=== PATIENT | male | born 1950 | race Caucasian/White ===

== ENCOUNTER 2017-11-30 21:15 | Emergency (ER) | payer MEDICARE, SELFPAY ==
[2017-11-30 21:16] VITALS: BP 156/91; PULSE 75; RESP 15; TEMP 36.9; O2SAT 95; BMI 40.1
--- NOTE | 2017-11-30 21:59 | CT_ITS ---
STUDY: CT BRAIN WITHOUT CONTRAST REASON FOR EXAM: Male, 66 years old. Confusion. Headache. RADIATION DOSAGE (If Supplied By Facility): CTDIvol = ( 44.99 ) mGy, DLP = ( 829.85 ) mGycm TECHNIQUE: Transaxial CT imaging of the brain was performed without administration of intravenous contrast material. Individualized dose optimization techniques were used for this CT. COMPARISON: None. FINDINGS: Normal soft tissue structures. Normal calvarium. Normal size ventricles and extra-axial spaces for the patient's age. Normal white matter tracts of the cerebral hemispheres. Normal basal ganglia and thalami. Normal brainstem. Normal cerebellum. There is no intracranial hemorrhage. There are no findings of an acute ischemic infarction. Normal visualized paranasal sinuses. CT/Brain/Head without Contrast IMPRESSION: Normal unenhanced CT scan of the brain. Electronically Signed: Russ Tapia MD at 23:06 EST , Service support ,
[2017-11-30 22:23] LABS: Absolute Lymphocyte Count 1.69 X10^3/ul (0.83-4.51); Absolute Neutrophil Count 3.8 X10^3/uL (2.0-7.7); Basophil# 0.02 X10^3/uL; Basophil% 0.3 % (0-1); Eosinophil# 0.28 X10^3/uL; Eosinophils% 4.3 % (0-5); Hematocrit 38.7 % (40-54); Hemoglobin 12.8 g/dl (13.0-16.5); Lymphocyte # 1.69 X10^3/ul (4.0); Mean Corp Hgb Conc 33.1 g/gl (32-36); Mean Corpuscular Hgb 30.5 pg (27.0-32.0); Mean Corpuscular Volume 92.4 fL (80-94); Mean Platelet Vol. 8.2 fl (6.2-12.0); Monocyte# 0.66 X10^3/uL; Monocyte% 10.2 % (0-10); Neutrophil # 3.82 X10^3/uL (2.7-7.7); Neutrophil % 58.9 % (47-70); Platelet Count 234 K/mm3 (150-450); RBC Distribution Width CV 13.5 % (11.6-14.6); RBC Distribution Width SD 44.9 fl (35.1-43.9); Red Blood Count 4.19 M/mm3 (4.6-6.2); White Blood Count 6.5 K/mm3 (4.4-11.0)
[2017-11-30 22:31] LABS: POSITIVE COUNT NO; POSITIVE DIFFERENTIAL NO; POSITIVE MORPHOLOGY NO
[2017-11-30 22:36] LABS: Anion Gap 9 (5-15); BUN 18 mg/dL (7-18); BUN/Creat Ratio 20.8 RATIO (10-20); Calcium,Total 8.7 mg/dL (8.5-10.1); Chloride 103 mmol/L (98-107); Creatinine, Serum 0.86 mg/dL (0.70-1.30); EST Glomerular Filtration Rate 93 mL/min (>60); Est Glom Filt Rate - Afr Amer 113 mL/min (>60); Estimated Creatinine Clearance 82.21 ml/min; Glucose 104 mg/dL (74-106); Sodium Level 137 mmol/L (136-145)
[2017-11-30 22:50] LABS: Erythrocyte Sedimentation Rate 13 mm/hr (0-20)
[2017-11-30 23:23] VITALS: PULSE 67; RESP 13; O2SAT 94
--- NOTE | 2017-11-30 23:23 | ED.RN ---
PT PASSES SWALLOW EVALUATION. TAKES NIGHTLY DOSE OF ATIVAN FROM HOME, WITH APPROVAL FROM DR. BAUGH.
[2017-12-01 01:03] VITALS: BP 162/89; PULSE 62; RESP 17; O2SAT 93
--- NOTE | 2017-12-01 01:14 | ED.DCSUM_ITS ---
- ER Visit Summary Date of Service: 12/01/17 Chief Complaint: Confusion and loss of memory History of Present Illness: The patient is a 66 M who has multiple medical problems which include hypertension, obstructive sleep apnea and depression with anxiety. He was brought to the ER because is concerned he had a TIA because of confusion. He denies fever, chills night sweats. He denies change in vision, blurred vision or double vision. He denies ear pain, runny nose or sore throat. He does report ringing in his ears as having his ears for a long time. He denies chest pain or palpitations. No shortness of breath, cough, dyspnea on exertion or orthopnea. He denies abdominal pain, nausea, vomiting or diarrhea. Denies black or maroon stool. He denies dysuria, frequency, urgency or hematuria. He denies any myalgias or arthralgias. He denies rash. He does complain of unilateral headache on the right side that he describes as a dull and annoying discomfort. He denies any weakness, paresthesia, trouble with balance or gait. states there was no problem with speech. He denies difficulty swallowing. He does complain of increased urination. He denies bruising easily or bleeding diastases. Physical Examination: Vital signs are marked for an elevated blood pressure 156/ 91. BMI is 40.1. Vital signs are otherwise normal. Head is atraumatic normocephalic. Pupils are equal round reactive. Extraocular muscles are intact. TMs are pearly white with landmarks noted. Nares patent with no drainage. Posterior pharynx without erythema or exudate. Uvula is midline. There is no dysphonia or dysphasia. Trachea is midline. There is no stridor with auscultation of the neck. Heart is regular without murmur, gallop or rub. S1 and S2 are normal. Lungs are clear to auscultation with good movement of air bilaterally. Abdomen is soft nontender. There are no skin lesions or rash noted. Patient is alert and oriented ?2. Not know his age or the month. He thought it was 2008. He does not recall things that happen. He does not recover taking a shower. He knew he did take a shower because he was wet. Motor is 5 over 5. Sensory is intact. DTRs are symmetric with no clonus or Babinski sign. Cranial 2 through 12 are intact. Cerebellar testing is normal. Test Results: CT reveals right maxillary sinusitis which is insignificant. CBC is normal. BMP is normal. ESR is 13. Emergency Department Course and Treatment: This patient has unilateral headache with confusion and he is elderly and ESR was obtained. CT was obtained because of the complaint of headache looking for intracranial pathology and specifically bleed. Blood work was obtained to rule out metabolic cause. Treatment Plan: Patient was reassessed at 0105. He is alert oriented ?3 and his neuro exam is nonfocal. Disposition: Discharged to home with with home-going instructions for global amnesia Impression: Global amnesia This note was generated with [employer] dictation software. It may contain incorrect words, spelling, and punctuation that were not noted in review of the chart prior to signing ED Disposition - Plan for ED Patient: Disposition: Home or Assisted Living Chief Complaint: Confusion Instructions: ED Confusion Referrals: Alex Lambert MD [Primary Care Provider] - As Needed
[2017-12-01 01:20] VITALS: BP 156/75; PULSE 60; RESP 18; O2SAT 96
== END 2017-12-01 01:21 | disposition home or self-care (01) ==
PROVIDERS: Emergency Provider Emergency Medicine; Family Provider Family Medicine; PCP Family Medicine
DX: G45.4 Transient global amnesia (principal); I10 Essential (primary) hypertension; G47.33 Obstructive sleep apnea (adult) (pediatric); F32.9 Major depressive disorder, single episode, unspecified; F41.9 Anxiety disorder, unspecified; E66.9 Obesity, unspecified; Z68.41 Body mass index [BMI] 40.0-44.9, adult; Z87.891 Personal history of nicotine dependence; Z79.82 Long term (current) use of aspirin; Z79.899 Other long term (current) drug therapy
CPT/HCPCS: 70450; 80048; 85025; 85652; 99284; A4216

== ENCOUNTER 2018-05-16 03:41 | Emergency (ER) | payer MEDICARE, SELFPAY ==
[2018-05-16 03:41] VITALS: BP 195/102; PULSE 80; RESP 16; TEMP 37.2; O2SAT 95; BMI 41.7
[2018-05-16 03:44] VITALS: O2SAT 96
--- NOTE | 2018-05-16 04:06 | ED.DCSUM_ITS ---
- ER Visit Summary Date of Service: 05/16/18 Chief Complaint: I have a chest cold and short of breath History of Present Illness: The patient is a 67 M past medical history of prior TIA and hypertension. Patient states a week ago he developed a chest cold. States is nonproductive cough. Denies any chest pain or hemoptysis. Denies any leg pain or swelling. He has had some mild diarrhea. No melena. No fever. Physical Examination: Well appearing older male. Comes in with his . Vital signs stable. Afebrile. Pulse ox 95% on room air no signs of hypoxia. No distress. H EENT exam unremarkable. Nasal congestion. Neck nontender no JVD. Lungs clear to auscultation bilaterally. No rales, rhonchi or wheezing. Equal and symmetrical. Heart regular rate and rhythm no murmur. Abdomen soft nontender. He is moving all 4 extremities. They are neurovascularly intact. Calves are nontender without edema or cords. Neurologically is awake alert without any focal motor deficits. Test Results: Chest x-ray 2 views were obtained showed no acute abnormality. Some mild bronchial inflammation. No pneumonia. Normal cardiac silhouette. Read both by myself the radiologist. EKG showed a sinus rhythm rate is 78 with both a right bundle and left anterior fascicular block. No signs of ischemia. Emergency Department Course and Treatment: Repeat exam at 05 35 patient is doing well. He and I had a long discussion. I explained to him that he did not need the antibiotic he was concerned that he would need an antibiotic. I will write for Zithromax but he knows not to start it or take it at all for at least 1 week and this should resolve in that time. Treatment Plan: Treated as a viral URI Disposition: Discharge Impression: Viral URI /viral bronchitis This note was generated with [employer] dictation software. It may contain incorrect words, spelling, and punctuation that were not noted in review of the chart prior to signing ED Disposition - Plan for ED Patient: Chief Complaint: Cold Sx Referrals: Alex Lambert MD [Primary Care Provider] -
[2018-05-16 05:22] VITALS: BP 155/91; PULSE 74; RESP 18; O2SAT 92
--- NOTE | 2018-05-16 05:37 | ED.DEP ---
ED Disposition - Plan for ED Patient: Disposition: Home or Assisted Living Chief Complaint: Cold Sx Instructions: ED Upper Resp Infec No Abx Tx Prescriptions: Azithromycin [Zithromax Z-Hamlet] 250 mg PO UD #1 box Referrals: Alex Lambert MD [Primary Care Provider] - 1 Week if not improving Additional Instructions: Plenty of fluids and rest. Very very high likelihood that this is a viral respiratory infection. This should improve on its own. Per your request I did write you for an antibiotic Zithromax but I would not start that for at least a week and this should improve on its own.
[2018-05-16 05:43] VITALS: BP 155/91; PULSE 76; RESP 16; O2SAT 93
== END 2018-05-16 05:43 | disposition home or self-care (01) ==
PROVIDERS: Emergency Provider Emergency Medicine; Family Provider Family Medicine; PCP Family Medicine
DX: J20.8 Acute bronchitis due to other specified organisms (principal); I10 Essential (primary) hypertension; Z86.73 Personal history of transient ischemic attack (TIA), and cerebral infarction without residual deficits; Z79.82 Long term (current) use of aspirin; Z79.899 Other long term (current) drug therapy
CPT/HCPCS: 71046; 93005; 99282

== ENCOUNTER → 2018-06-19 19:59 | Outpatient (CLI) | payer MEDICARE, SELFPAY ==
[2018-06-19] MEDS: Zolpidem Tartrate 5 MG Tablet PO (21:50)
== END ==
PROVIDERS: Family Provider Family Medicine; PCP Family Medicine; Visit Provider Family Medicine
DX: G47.33 Obstructive sleep apnea (adult) (pediatric) (principal)
CPT/HCPCS: 95811

== ENCOUNTER 2020-02-29 23:07 | Observation (INO) | payer MEDICARE, SELFPAY ==
[2020-02-29 23:07] VITALS: BP 182/99; PULSE 79; RESP 15; TEMP 36.4; O2SAT 95; BMI 41.0
--- NOTE | 2020-02-29 23:21 | EKG12_ITS ---
Test Reason : CP Blood Pressure : / mmHG Vent. Rate : 078 BPM Atrial Rate : 078 BPM P-R Int : 214 ms QRS Dur : 162 ms QT Int : 430 ms P-R-T Axes : 030 -79 053 degrees QTc Int : 490 ms Sinus rhythm with 1st degree A-V block Right bundle branch block Left anterior fascicular block Bifascicular block Minimal voltage criteria for LVH, may be normal variant Abnormal ECG Confirmed by PADMAJA GONZALEZ ([id number]), continuity editor NATALI HANEY ([id number] on 03/03/2020 11:11:58 AM Referred By: FILIPPO Confirmed By:PADMAJA GONZALEZ
--- NOTE | 2020-02-29 23:22 | ED.DCSUM_ITS ---
- ER Visit Summary Date of Service: 02/29/20 Chief Complaint: [Chest pain] History of Present Illness: The patient is a 69 M [presents to the emergency department with complaint of chest pain that started 3 days ago. Patient also started with dyspnea 3 days ago. He had a cough that was nonproductive for 2 days but resolved yesterday. He has had no fever. No exposures to COVID-19 and states he has been in the house since early December. Patient was tested for COVID-19 this afternoon via a drive-through at the hospital. Patient does not have results for his COVID-19 test. Patient states this afternoon he got a burning sensation in his chest that concerned him. Patient complains of exertional dyspnea for the last 3 days. Patient has history of anxiety but states this is not anxiety. Patient has history of hypertension, obesity, anxiety, and depression. She denies recent travel or surgery.] Physical Examination: [HEENT-PERRLA, EOMI. Cranial nerves II through XII grossly intact. TMs clear. Mucous membranes moist. No adenopathy. Cardiovascular-regular rate and rhythm without murmur or ectopy Lungs-clear to auscultation, chest wall stable without crepitus or subcu emphysema Abdomen-normoactive bowel sounds, soft, nontender, no rebound or rigidity, no peritoneal signs. Extremities-intact ?4, normal range of motion, normal pulses, atraumatic] Test Results: [EKG obtained on arrival showed a sinus rhythm with a ventricular rate 78 bpm with a first-degree AV block as well as a right bundle branch block and left anterior fascicular block. When compared with prior EKG from May 16, 2018 no new changes noted.] D-dimer obtained was normal. Chemistries unremarkable. CBC with differential unremarkable. Troponin was less than 0.015. Chest x-ray showed nothing acute. Emergency Department Course and Treatment: [IV line established on arrival. Patient received aspirin. Patient placed on [employer].] Treatment Plan: [Admit for further work-up and evaluation of chest pain] Disposition: [Admit] Impression: [Chest pain-rule out acute coronary syndrome Exertional dyspnea] This note was generated with [employer] software. It may contain incorrect words, spelling, and punctuation that were not noted in review of the chart prior to signing ED Disposition - Plan for ED Patient: Referrals: Scott Yang MD [Primary Care Provider] -
[2020-02-29] MEDS: Aspirin 81 MG TAB.CHEW 324 MG PO (23:26)
[2020-02-29] MEDS: 0.9% Normal Saline 1,000 ML 150 ML IV (23:28)
--- NOTE | 2020-02-29 23:30 | RAD_ITS ---
STUDY: X-RAY CHEST REASON FOR EXAM: Male, 69 years old. CHEST PAIN/BURNING SENSATION TECHNIQUE: Single frontal view of the chest. COMPARISON: None. FINDINGS: The lungs are clear and expanded. There is no demonstrated pleural abnormality. Normal size heart. Normal mediastinum and parviz. Normal visualized pulmonary arteries. Normal visualized aortic arch and descending thoracic aorta. Normal visualized thoracic spine. Bilateral shoulder arthroplasties. There is no demonstrated abnormality of the visualized soft tissue structures of the upper abdomen. RAD/Chest 1 View (Portable) IMPRESSION: No acute pulmonary findings. Electronically Signed: Fred Plata MD at 0:06 EDT Tel , Service support ,
[2020-02-29 23:35] LABS: Absolute Neutrophil Count 4.3 X10^3/uL (2.0-7.7); Basophil# 0.06 X10^3/uL; Basophil% 0.8 % (0-1); Eosinophil# 0.26 X10^3/uL; Eosinophils% 3.6 % (0-5); Hematocrit 42.5 % (40-54); Hemoglobin 13.8 g/dL (13.0-16.5); Lymphocyte % 24.8 % (19-41); Mean Corp Hgb Conc 32.5 g/dL (32-36); Mean Corpuscular Hgb 30.2 pg (27.0-32.0); Mean Platelet Vol. 8.4 fl (6.2-12.0); Monocyte# 0.73 X10^3/uL; Monocyte% 10.1 % (0-10); NRBC Flagged by Analyzer 0 % (0-5); Neutrophil # 4.33 X10^3/uL (2.7-7.7); Neutrophil % 59.6 % (47-70); Platelet Count 292 K/mm3 (150-450); RBC Distribution Width CV 14.3 % (11.6-14.6); RBC Distribution Width SD 48.1 fl (35.1-43.9); Red Blood Count 4.57 M/mm3 (4.6-6.2); White Blood Count 7.3 K/mm3 (4.4-11.0)
[2020-02-29 23:52] LABS: Anion Gap 7 (5-15); BUN 13 mg/dL (7-18); BUN/Creat Ratio 14.6 RATIO (10-20); Calcium,Total 8.9 mg/dL (8.5-10.1); Chloride 100 mmol/L (98-107); Creatinine, Serum 0.89 mg/dL (0.70-1.30); EST Glomerular Filtration Rate 89 mL/min (>60); Est Glom Filt Rate - Afr Amer 108 mL/min (>60); Estimated Creatinine Clearance 73.65 ml/min; Glucose 117 mg/dL (74-106); Potassium 3.9 mmol/L (3.5-5.1); Sodium Level 134 mmol/L (136-145)
[2020-03-01] VITALS (11 sets, daily range): BP systolic 154–179; BP diastolic 76–97; PULSE 68–85; RESP 15–18; TEMP 36.4–36.9; O2SAT 92–96; BMI 41.8
[2020-03-01 00:40] LABS: D-Dimer Quantitative (DVT/PE) < 0.27 FEU/ug/m (0.27-0.49)
--- NOTE | 2020-03-01 01:08 | PCM.HP.STD ---
Problem List (1) Obesity (BMI 30-39.9) Status: Chronic (2) Hypertension Status: Chronic (3) MARCELINA (obstructive sleep apnea) Status: Chronic (4) Anxiety and depression Status: Chronic History of Present Illness Date of Admission: 03/01/20 Chief Complaint: Chest pain. The patient is a 69 year old M with past medical history as mentioned above presented to the emergency room because of chest pain or shortness of breath. Chest pain started today, pain across the chest, burning pain, mild, radiates to the left upper arm, associated with shortness of breath and lightheaded feeling or relieving factors. He mentioned that he has been having shortness of breath for 3 days, mainly exertional, associated with dry cough and without aggravating or relieving factors. He denied fever chills. He denied sick contacts or recent travel. Today, he contacted his PCP who recommended that he should have COVID-19 test done which was done today at the hospital as outpatient through the drive-through service. He stated that the pain started today but shortness of breath started 3 days ago. In the emergency department, blood pressure was elevated, other vital signs were stable. Routine blood work was unremarkable. EKG revealed normal sinus rhythm, first-degree AV block, RBBB, no acute ischemic changes compared to previous EKGs. Chest x-ray showed no acute findings. He is being admitted for chest pain for evaluation. Past Medical History Past Medical History (Chronic Problems): Chronic Problems Obesity (BMI 30-39.9) (Chronic) Hypertension (Chronic) MARCELINA (obstructive sleep apnea) (Chronic) Anxiety and depression (Chronic) Allergies niacin Allergy (Verified 02/29/20 23:13) Other RED SKIN Penicillins Allergy (Verified 02/29/20 23:13) Rash povidone-iodine [From Betadine] Allergy (Verified 02/29/20 23:13) Other BLISTERS pseudoephedrine HCl [From Sudafed] Allergy (Verified 02/29/20 23:13) Anaphylaxis soap [From Betadine] Allergy (Verified 02/29/20 23:13) Other soy Allergy (Verified 02/29/20 23:13) Unknown MUSCLE PAIN, RASH trazodone Allergy (Verified 02/29/20 23:13) Anaphylaxis Home Medications: Ambulatory Orders Medication Instructions Recorded Azelastine HCl [Astelin] 1 spray NASAL DAILY 06/25/14 Fluticasone 0.05% [Flonase Nasal 1 spray NASAL DAILY 06/25/14 [place]] Lorazepam [Ativan] 1 mg PO BID PRN 06/25/14 Risperidone [Risperdal] 1 mg PO QHS 06/25/14 buPROPion SR [Wellbutrin SR (150mg 150 mg PO TID 06/25/14 tablets)] Aspirin E.C. [Ecotrin] 81 mg PO DAILY@0800 30 Days tablet 06/26/14 Metoprolol Tartrate [Lopressor 25 mg PO DAILY 11/30/17 (beta jessica)] Doxycycline 100 mg PO BID 02/29/20 Guaifenesin [Mucinex] 600 mg PO BID PRN 02/29/20 Surgical History: total hip arthroplasty, - - right shoulder total replacement, spinal fusion ?2, bilateral carpal tunnel surgery. Psychiatric History: Anxiety, Depression Lives: Spouse/ Significant Other Smoking Status: Former smoker Alcohol: None Drugs: None - *Family History Maternal History Items: No pertinent history Paternal History Items: No pertinent history Review of Systems Constitutional: Denies: Anorexia, Chills, Fever, Weakness Eyes: Denies: Blurred vision, Double vision, Drainage, Redness HEENT: Denies: Difficulty Hearing, Ear Pain, Eye Pain, Nasal Congestion, Sore Throat Cardiovascular: Reports: Chest Pain, Chest Pressure. Denies: Edema, Heaviness, Light Headedness, Palpitations, Syncope Respiratory: Reports: Cough, Shortness of Breath. Denies: Sputum production, Wheezing Gastrointestinal: Denies: Abdominal Pain, Constipation, Diarrhea, Nausea, Vomiting Genitourinary: Denies: Dysuria, Frequency, Hematuria Musculoskeletal: Denies: Arm Pain, Back Pain, Foot Pain Skin: Denies: Dryness, Rash Neurological: Denies: Balance problems, Double vision, Change in Speech, Slurred speech, Confusion, Headaches, Incoordination, Numbness Psychiatric: Reports: Anxiety, Depression Endocrine: Denies: Change in Body Habitus, Polydipsia, Polyuria VTE Information - Inpt Only VTE Present on Admission: No VTE Mechan Device Prophylaxis: None VTE Pharm Prophylaxis ordered?: Yes - Physical Exam Vitals/I&O's: Vital Signs Temp Pulse Resp BP Pulse Ox 97.5 F L 79 15 182/99 H 95 02/29/20 23:07 02/29/20 23:07 02/29/20 23:07 02/29/20 23:07 02/29/20 23:07 Oxygen Delivery Method Room Air Weight: 270 lb Body Mass Index (BMI) 41.0 General: Alert, Oriented x3, Cooperative, No apparent distress HEENT: Atraumatic, PERRLA, EOMI, Normocephalic Oral: Moist Mucosa, No Gingival or Mucosal Lesions/ Ulcerations Neck: Supple, No JVD, Negative Carotid Bruits, Trachea Midline, Thyroid Normal Size and Texture Lungs: Clear to auscultation, Normal air movement, No rhonchi, No wheeze, No rales, Diminished Cardiovascular: Regular rate, Regular Rhythm, Normal S1, Normal S2, PMI Normal Abdomen: Bowel Sounds Present, Soft, Non Tender, Non-Distended, No Hepato-splenomegaly, Obese Extremities: No clubbing, No cyanosis, No edema Skin: No rashes, No breakdown Lymphatic: No Cervical, Supraclavicular, or Inguinal Adenopathy Neurological: Cranial nerves II-XII grossly intact, Motor Exam 5/5 strength throughout Psych/Mental Status: Normal Affect, Appropriate, Alert and oriented to time, place, person, mood and affect Laboratory Results 02/29/20 23:24: WBC 7.3, RBC 4.57 L, Hgb 13.8, Hct 42.5, MCV 93.0, MCH 30.2, MCHC 32.5, RDW Std Deviation 48.1 H, RDW Coeff of Rosa 14.3, Plt Count 292, MPV 8.4, Immature Gran % (Auto) 1.100 H, Neut % (Auto) 59.6, Lymph % (Auto) 24.8, [place] % (Auto) 10.1 H, Eos % (Auto) 3.6, Baso % (Auto) 0.8, Absolute Neuts (auto) 4.3, Absolute Lymphs (auto) 1.80, Nucleated RBC % 0 02/29/20 23:24: D-Dimer Quant (PE/DVT) < 0.27 L 02/29/20 23:24: Sodium 134 L, Potassium 3.9, Chloride 100, Carbon Dioxide 27.0, Anion Gap 7, BUN 13, Creatinine 0.89, Estim Creat Clear Calc 73.65, Est GFR (MDRD) Af Amer 108, Est GFR (MDRD) Non-Af 89, BUN/Creatinine Ratio 14.6, Glucose 117 H, Calcium 8.9, Troponin I < 0.015 Clinical Impression(s) from Imaging Studies Chest X-Ray 02/29/20 23:30 IMPRESSION: No acute pulmonary findings. Electronically Signed: Fred Plata MD at 0:06 EDT Tel , Service support , Current Medications Sodium Chloride () 1,000 mls @ 150 mls/hr IV .[id number] MUSA Last Admin: 02/29/20 23:28 Dose: 150 mls/hr Documented by: Assessment/Plan This is a 69 years old male patient presented to the emergency room because of chest pain and is being admitted for evaluation. #1 chest pain: Seemed to be atypical. Risk factors are age, obesity, hypertension. Initial EKG revealed no acute ischemic changes. Troponin is negative. Chest x-ray showed no acute findings. Patient had COVID-19 test done today as outpatient, it was sent out which will take couple days to come back. I requested that COVID-19 test to be done now so we can have the results by this morning and we can do the stress test. Plan: Admit to PCU observation, cardiac monitoring, serial cardiac enzymes, continue aspirin, hold metoprolol, nuclear stress test this morning if cardiac enzymes are negative, nitroglycerin sublingual as needed, Tylenol PRN. #2 hypertension: Blood pressure is elevated, hold metoprolol as patient is going for stress test, start IV adenosine PRN. #3 obstructive sleep apnea: Continue BiPAP with the same home settings. #4 anxiety/depression: Continue Wellbutrin, Ativan and risperidone. #5 DVT prophylaxis: Subcu Lovenox. This note was generated with [employer] dictation software. It may contain incorrect words, spelling, and punctuation that were not noted in checking the note before signing. OBSV E&M: 01975 Initial observation care L2
[2020-03-01 02:42] LABS: Probe Check PASS; SARS-COV-2 DNA by PCR Negative (Negative); Specimen Processing Control PASS
--- NOTE | 2020-03-01 03:45 | EKG12_ITS ---
Test Reason : CP ADMISSION Blood Pressure : / mmHG Vent. Rate : 063 BPM Atrial Rate : 063 BPM P-R Int : 236 ms QRS Dur : 158 ms QT Int : 466 ms P-R-T Axes : 057 -67 013 degrees QTc Int : 476 ms Sinus rhythm with 1st degree A-V block Right bundle branch block Left anterior fascicular block Bifascicular block Abnormal ECG When compared with ECG of 29-FEB-2020 23:19, MANUAL COMPARISON REQUIRED, DATA IS UNCONFIRMED Confirmed by MARY JO MALDONADO, DANIEL ([id number]), makeup editor PILAR PRAKASH ([id number]) on 03/04/2020 1:59:51 PM Referred By: SAY Confirmed By:DANIEL CAMARGO MD
[2020-03-01] MEDS: LORazepam 1 MG Tablet PO (03:56)
[2020-03-01 05:21] LABS: Cholesterol 179 mg/dL (200); High Density Lipoprotein 30 mg/dL; Triglycerides 284 mg/dL; Very Low Density Lipoprotein 57 mg/dL (5-40)
--- NOTE | 2020-03-01 05:55 | STEWCON_ITS ---
Reason For Study: CHEST PAIN Stress Results Protocol: Modified Mark Protocol With Definity Maximum Predicted HR: 149 bpm Target HR: 127 bpm % Maximum Predicted HR: 92 % DurationHeart Rate Stage (mm:ss) (bpm) BP Comment BASELINE 69 160/88 5 CC TOTAL FOR TEST STAGE 0 3:00 130 200/102NO CHEST PAIN, SLIGHT SOB STAGE 1/2 2:00 137 212/100INCREASED SOB, FOOT DISCOMFORT RECOVERY 83 158/80 Stress Duration: 5:00 mm:ss Maximum Stress HR: 137 bpm Baseline Echocardiogram Findings The estimated ejection fraction is 65 %. Stress Echo Wall motion Data Resting WM Intermediate WM Stress WM Resting Wall Motion Wall Motion Stress No regional wall motion No regional wall motion abnormalities noted. abnormalities noted. EKG Data The baseline ECG displays normal sinus rhythm. The maximum heart rate attained was 137 beats per minute. This was 91% of maximum predicted heart rate. During stress, there were no ST or T wave changes noted to suggest ischemia. No clinical angina was noted. Doppler Measurements & Calculations TR max clemencia: 240.6 cm/sec TR max P.2 mmHg Interpretation Summary The estimated ejection fraction is 65 %. Normal, adequate, treadmill echocardiogram. Negative for ischemia by EKG and echocardiographic criteria. No anginal symptoms noted. Rare PVC noted. Below average exercise capacity for age. Hypertensive blood pressure response to exercise. Final LVEF is 75%. Patient unable to walk further on the treadmill due to arthritis. Test terminated due to the attainment target heart rate and dyspnea and bilateral foot pain. Decrease sensitivity due to poor echo windows and interventricular conduction delay on EKG. No complications. The study was technically difficult. Contrast injection was performed. Ordering Physician: Fern Domingo Performed By: Lavern Mendez, KIMBERLY, RVT
[2020-03-01] MEDS: buPROPion 75 MG Tablet 150 MG PO (06:08)
[2020-03-01] MEDS: hydrALAZINE 20 MG/ML Vial 10 MG IV (06:09)
[2020-03-01] MEDS: Aspirin E.C. 81 MG Tablet PO (06:09)
[2020-03-01] MEDS: 0.9% Saline Lock 10 ML Syringe IV (06:10)
--- NOTE | 2020-03-01 07:28 | PN_ITS ---
Subjective: The patient was seen in conjunction with PRECIOUS Smith. The patient is a 69-year-old male with a past medical history of morbid obesity, hypertension, MARCELINA, allergic rhinitis and anxiety/depression who presented to the emergency department at [facility] on 03/01/2020 complaining of chest pain/shortness of breath. Shortness of breath has been present for 3 days along with a dry cough. He denied fever/chills/loss of smell or taste/sore throat. The shortness of breath and chest pain are mainly exertional. EKG revealed normal sinus rhythm, first-degree AV block, right bundle branch block and no suspicious ST or T wave changes when compared to previous EKGs. Chest x- ray showed no acute findings. Vital signs at presentation to the emergency room were temperature 97.5, pulse rate 79, blood pressure 182/99, respiratory rate 15 and he was 95% saturated on room air. Blood pressure has remained elevated since admission and is currently 172/85. CBC was unremarkable. D-dimer was less than 0.27. Sodium was low at 134 but the rest of the BMP was unremarkable. Initial troponin is less than 0.015 and the second troponin is also less than 0.015. Lipid panel shows high triglycerides 284, total cholesterol of 179, LDL of 92 and an HDL of 30. COVID-19 was negative. He was admitted to a monitored bed on PCU and a nuclear stress test has been ordered for today. ASA was continued and he takes 81 mg daily. Last stress test was in June 2014. Stress test today was negative. He had below average exercise capacity for a man of his age. There was a hypertensive response to exercise. Ejection fraction increased to 75% with exercise. This pt is morbidly obese and deconditioned. His weight has increased 25 lbs in the past 6 years. He is also a former smoker. I suspect these factors are the etiology of his SOB and CP due to heavy breathing or to anxiety because he is SOB. He had similar SX 6 years ago and the stress was negative at that time. I do not know how compliant he really is with CPAP. I suspect he probably has pulmonary HTN. I agree with the PE documented by Abdi. Impressions 1. non-cardiac CP 2. MONACO is likely multifactorial - due to former smoking hx, morbid obesity, MARCELINA, uncontrolled hypertension and suspected Pulmonary HTN 3. Uncontrolled hypertension D/W Abdi and orders have been written. Add Lisinopril to the current antihypertensive regimen We will follow-up with primary care physician in 1 to 2 weeks. Recommended a weight loss program and regular aerobic exercise Suggested follow-up with Dr. Lamin Holcomb for pulmonary function tests Discharge today - Physical Exam Vitals/I&O's: Vital Signs Temp Pulse Resp BP Pulse Ox 98.1 F 68 18 172/85 H 95 03/01/20 06:04 03/01/20 06:09 03/01/20 06:04 03/01/20 06:04 03/01/20 06:04 Oxygen Flow Rate (L/min) 2 Oxygen Delivery Method Nasal Cannula Weight: 274 lb 14.663 oz Body Mass Index (BMI) 41.8 Intake and Output for Last 24 Hours 02/28/20 02/29/20 03/01/20 23:59 23:59 23:59 Intake Total 935 / 935 Balance 935 / 935 Laboratory Results 02/29/20 23:24: WBC 7.3, RBC 4.57 L, Hgb 13.8, Hct 42.5, MCV 93.0, MCH 30.2, MCHC 32.5, RDW Std Deviation 48.1 H, RDW Coeff of Rosa 14.3, Plt Count 292, MPV 8.4, Immature Gran % (Auto) 1.100 H, Neut % (Auto) 59.6, Lymph % (Auto) 24.8, [place] % (Auto) 10.1 H, Eos % (Auto) 3.6, Baso % (Auto) 0.8, Absolute Neuts (auto) 4.3, Absolute Lymphs (auto) 1.80, Nucleated RBC % 0 02/29/20 23:24: D-Dimer Quant (PE/DVT) < 0.27 L 02/29/20 23:24: Sodium 134 L, Potassium 3.9, Chloride 100, Carbon Dioxide 27.0, Anion Gap 7, BUN 13, Creatinine 0.89, Estim Creat Clear Calc 73.65, Est GFR (MDRD) Af Amer 108, Est GFR (MDRD) Non-Af 89, BUN/Creatinine Ratio 14.6, Glucose 117 H, Calcium 8.9, Troponin I < 0.015 03/01/20 01:12: COVID-19 (EMPERATRIZ) Negative 03/01/20 04:30: Triglycerides 284 H, Cholesterol 179, LDL Cholesterol 92, VLDL Cholesterol 57 H, HDL Cholesterol 30 L 03/01/20 04:30: Troponin I < 0.015 Current Medications Acetaminophen (Tylenol) 650 mg PO Q6H PRN PRN PRN Reason: Pain Score 1-10/Temp > 100.7 F Aspirin (Ecotrin) 81 mg PO DAILY@0800 [facility] Last Admin: 03/01/20 06:09 Dose: 81 mg Documented by: Bupropion HCl (Wellbutrin Tablets) 150 mg PO TID [facility] Last Admin: 03/01/20 06:08 Dose: 150 mg Documented by: Enoxaparin Sodium (Lovenox) 40 mg SC DAILY [facility] Fluticasone Propionate (Flonase Nasal [place]) 1 spray NASAL DAILY [facility] Hydralazine HCl (Apresoline Iv) 10 mg IV Q8H PRN PRN PRN Reason: for SBP>160 Last Admin: 03/01/20 06:09 Dose: 10 mg Documented by: Lorazepam (Ativan) 1 mg PO BID PRN PRN PRN Reason: ANXIETY Last Admin: 03/01/20 03:56 Dose: 1 mg Documented by: Nitroglycerin (Nitrostat) 0.4 mg SUBLINGUAL Q5M PRN PRN Reason: CHEST PAIN Ondansetron HCl (Zofran) 4 mg IV Q8H PRN PRN PRN Reason: NAUSEA/VOMITING Risperidone (Risperdal) 1 mg PO QHS [facility] Senna/Docusate Sodium (Senokot-S, Martha-Colace) 2 tablet PO BID PRN PRN PRN Reason: Constipation Sodium Chloride () 10 - 40 ml IV UD PRN PRN Reason: SALINE FLUSH Last Admin: 03/01/20 06:10 Dose: 10 ml Documented by: Zolpidem Tartrate (Ambien (Generic)) 5 mg PO QHS PRN PRN PRN Reason: INSOMNIA Medical Necessity - Tobacco Use Smoking Status: Former smoker
[2020-03-01] MEDS: Enoxaparin 40 MG/0.4 ML Syringe SC (10:30)
[2020-03-01] MEDS: Fluticasone 0.05% 1 SPRAY NASAL.SRY NASAL (10:30)
[2020-03-01] MEDS: Metoprolol Tartrate 25 MG Tablet PO (11:23)
--- NOTE | 2020-03-01 12:04 | PCM.DC ---
You will use the following diet at home:: Cardiac Your food should be the consistency of: Regular Your liquids should be the consistency of: Regular/Thin Discharge Activity: Return to Normal Activity Allergies/Adverse Reactions: Allergies niacin Allergy (Verified 02/29/20 23:13) Other RED SKIN oseltamivir [From Tamiflu] Allergy (Verified 03/01/20 03:17) Anaphylaxis Penicillins Allergy (Verified 02/29/20 23:13) Rash povidone-iodine [From Betadine] Allergy (Verified 02/29/20 23:13) Other BLISTERS pseudoephedrine HCl [From Sudafed] Allergy (Verified 02/29/20 23:13) Anaphylaxis soap [From Betadine] Allergy (Verified 02/29/20 23:13) Other soy Allergy (Verified 02/29/20 23:13) Unknown MUSCLE PAIN, RASH trazodone Allergy (Verified 02/29/20 23:13) Anaphylaxis Medications to take at Discharge Azelastine HCl [Astelin] 1 spray NASAL DAILY 06/25/14 Fluticasone 0.05% [Flonase Nasal [place]] 1 spray NASAL BID 06/25/14 Lorazepam [Ativan] 1 mg PO BID PRN 06/25/14 Risperidone [Risperdal] 1 mg PO QHS 06/25/14 buPROPion SR [Wellbutrin SR (150mg tablets)] 150 mg PO TID 06/25/14 Aspirin E.C. [Ecotrin] 81 mg PO DAILY@0800 30 Days tablet 06/26/14 Metoprolol Tartrate [Lopressor (beta jessica)] 25 mg PO DAILY 11/30/17 Lisinopril 5 mg PO DAILY #30 tab 03/01/20 Zolpidem Tartrate [Ambien] 2 mg PO QHS PRN PRN 03/01/20 The following prescriptions were given: Lisinopril 5 mg PO DAILY #30 tab Transmission Status: Pending to [id number] Primary Care Physician: Scott Yang MD [Primary Care Provider] - Please follow up with your Primary Care Physician in: 1-2 weeks Test Results: Test results from this visit will be discussed in further detail at your follow-up appointment, if applicable. Please Follow Up With: Lamin Holcomb DO When: 3-4 weeks Proposed Discharge Date: 03/01/20
--- NOTE | 2020-03-01 15:30 | DS.PCM_ITS ---
Discharge Date and Diagnosis Date of Admission: 03/01/20 Date of Discharge: 03/01/20 - Primary Discharge Diagnosis Acute Problems: Chest pain and SOB, noncardiac Morbid obesity MARCELINA Uncontrolled HTN suspected pulm htn hx smoking. - Secondary Discharge Diagnosis Chronic Problems: Chronic Problems Obesity (BMI 30-39.9) (Chronic) Hypertension (Chronic) MARCELINA (obstructive sleep apnea) (Chronic) Anxiety and depression (Chronic) Hospital Course and Treatment Imaging Results: RAD/Chest 1 View (Portable) IMPRESSION: No acute pulmonary findings. Echo: Interpretation Summary The estimated ejection fraction is 65 %. Normal, adequate, treadmill echocardiogram. Negative for ischemia by EKG and echocardiographic criteria. No anginal symptoms noted. Rare PVC noted. Below average exercise capacity for age. Hypertensive blood pressure response to exercise. Final LVEF is 75%. Patient unable to walk further on the treadmill due to arthritis. Test terminated due to the attainment target heart rate and dyspnea and bilateral foot pain. Decrease sensitivity due to poor echo windows and interventricular conduction delay on EKG. No complications. The study was technically difficult. Contrast injection was performed. Operations: None Procedures: Stress test Summary of Care Provided: Hospital Course: The patient is a 69 year old M with pmhx of MARCELINA on bipap, morbid obesity, HTN, allergic rhinitis, former smoker, anxiety/depression, who presented to the ER with c/o chest pain and SOB. The pain started the day of presentation. SOB was occurring for 3 days. He came to the ER and had negative CXR, negative EKG, and negative troponin. He was admitted for chest pain rule out. He had no events on tele. Trop was neg x 3. AM stress test was negative for ischemia. Given his smoking hx, hx of sleep apnea, uncontrolled HTN, I suspect he has some degree of underlying lung disease or pulmonary htn. His BP was uncontrolled and lisinopril was added to his home metoprolol. I recommended he follow up with pulmonology in 3-4 weeks, and his PCP in 1-2 weeks. This patient was seen by Abdi Chand PA-C under the supervision of Dr. Ely. [] - Physical Exam Vitals/I&O's: Vital Signs Temp Pulse Resp BP Pulse Ox 97.6 F L 85 18 163/95 H 95 03/01/20 10:30 03/01/20 11:23 03/01/20 10:30 03/01/20 10:30 03/01/20 10:30 Oxygen Flow Rate (L/min) 2 Oxygen Delivery Method Room Air Weight: 274 lb 14.663 oz Body Mass Index (BMI) 41.8 Intake and Output for Last 24 Hours 02/28/20 02/29/20 03/01/20 23:59 23:59 23:59 Intake Total 1635 / 1635 Balance 1635 / 1635 General: Alert, Oriented x3, Cooperative HEENT: Atraumatic, PERRLA, EOMI, Normocephalic Neck: Supple, No JVD, Negative Carotid Bruits Lungs: Clear to auscultation, Normal air movement Cardiovascular: Regular rate, No murmurs Abdomen: Bowel Sounds Present, Soft, Non Tender, Obese Extremities: No edema, Capillary Refill Less than 3 Seconds Skin: No rashes, No breakdown Musculoskeletal: No Tenderness to Palpation of Joints or Extremities Neurological: Cranial nerves II-XII grossly intact Psych/Mental Status: Normal Affect, Appropriate, Alert and oriented to time, place, person, mood and affect Laboratory Results 02/29/20 23:24: WBC 7.3, RBC 4.57 L, Hgb 13.8, Hct 42.5, MCV 93.0, MCH 30.2, MCHC 32.5, RDW Std Deviation 48.1 H, RDW Coeff of Rosa 14.3, Plt Count 292, MPV 8.4, Immature Gran % (Auto) 1.100 H, Neut % (Auto) 59.6, Lymph % (Auto) 24.8, [place] % (Auto) 10.1 H, Eos % (Auto) 3.6, Baso % (Auto) 0.8, Absolute Neuts (auto) 4.3, Absolute Lymphs (auto) 1.80, Nucleated RBC % 0 02/29/20 23:24: D-Dimer Quant (PE/DVT) < 0.27 L 02/29/20 23:24: Sodium 134 L, Potassium 3.9, Chloride 100, Carbon Dioxide 27.0, Anion Gap 7, BUN 13, Creatinine 0.89, Estim Creat Clear Calc 73.65, Est GFR (MDRD) Af Amer 108, Est GFR (MDRD) Non-Af 89, BUN/Creatinine Ratio 14.6, Glucose 117 H, Calcium 8.9, Troponin I < 0.015 03/01/20 01:12: COVID-19 (EMPERATRIZ) Negative 03/01/20 04:30: Triglycerides 284 H, Cholesterol 179, LDL Cholesterol 92, VLDL Cholesterol 57 H, HDL Cholesterol 30 L 03/01/20 04:30: Troponin I < 0.015 03/01/20 07:45: Troponin I < 0.015 Discharge Diet: Low fat/ Low Cholesterol, 2000 mg Sodium Diet Discharge Activity: Return to Normal Activity Home Medications: Medications to take at Discharge Azelastine HCl [Astelin] 1 spray NASAL DAILY 06/25/14 Fluticasone 0.05% [Flonase Nasal [place]] 1 spray NASAL BID 06/25/14 Lorazepam [Ativan] 1 mg PO BID PRN 06/25/14 Risperidone [Risperdal] 1 mg PO QHS 06/25/14 buPROPion SR [Wellbutrin SR (150mg tablets)] 150 mg PO TID 06/25/14 Aspirin E.C. [Ecotrin] 81 mg PO DAILY@0800 30 Days tablet 06/26/14 Metoprolol Tartrate [Lopressor (beta jessica)] 25 mg PO DAILY 11/30/17 Lisinopril 5 mg PO DAILY #30 tab 03/01/20 Zolpidem Tartrate [Ambien] 2 mg PO QHS PRN PRN 03/01/20 Following Prescrptions Were Given to Patient: Lisinopril 5 mg PO DAILY #30 tab Transmission Status: Received by [id number] Primary Care Physician: Scott Yang MD [Primary Care Provider] - Please follow up with your Primary Care Physician in: 1-2 weeks Please Follow Up With: Lamin Holcomb DO When: 3-4 weeks Disposition: Home Minutes spent on discharge:: 35 Patient Condition:: Stable Medical Necessity - Tobacco Use Smoking Status: Former smoker Meaningful Use Info Meaningful Use Diagnoses (Choose all that apply): None applicable
== END 2020-03-01 12:05 | disposition home or self-care (01) ==
LOC: ED 03-01 00:57 → PCU 03-01 01:16
PROVIDERS: Admitting Provider Hospitalist; Emergency Provider Emergency Medicine; PCP Family Medicine; Visit Provider Internal Medicine
DX: R07.89 Other chest pain (principal); E66.01 Morbid (severe) obesity due to excess calories; Z68.41 Body mass index [BMI] 40.0-44.9, adult; G47.33 Obstructive sleep apnea (adult) (pediatric); R06.02 Shortness of breath; I10 Essential (primary) hypertension; F41.9 Anxiety disorder, unspecified; F32.9 Major depressive disorder, single episode, unspecified; I45.2 Bifascicular block; I44.0 Atrioventricular block, first degree; Z79.899 Other long term (current) drug therapy; Z79.51 Long term (current) use of inhaled steroids; Z79.82 Long term (current) use of aspirin
CPT/HCPCS: 36415; 71045; 80048; 80061; 84484; 85025; 85379; 87635; 93005; 93017; 93350; 96361; 96372; 96374; 99218; 99284; G2023; J7030; Q9957; A4216; C8928; G0378; U0004

== ENCOUNTER → 2020-02-29 | Outpatient (CLI) | payer MEDICARE, SELFPAY | END | disposition home or self-care (01) | PROVIDERS: PCP Family Medicine; Referring Provider Family Medicine; Visit Provider Family Medicine | DX: Z03.818 Encounter for observation for suspected exposure to other biological agents ruled out (principal) | CPT/HCPCS: 87635; C9803; G2023; U0003 ==

== ENCOUNTER → 2020-05-15 | Outpatient (CLI) | payer MEDICARE, SELFPAY ==
[2020-03-01 03:12] VITALS: BMI 41.8
--- NOTE | 2020-05-15 09:47 | RAD_ITS ---
STUDY: AIR-CONTRAST UPPER GI SERIES. REASON FOR EXAM: Male, 69 years old. NON-CARDIAC CP. NON-PROD COUGH WHILE LAYING DOWN. FEATHER FEELING IN THROAT, SCRATCHY. SILENT REFLUX? FLUOROSCOPY TIME (if supplied): ( 35 seconds ) minutes/seconds. 14 images were obtained. TECHNIQUE: The patient ingested barium. Multiple images of the esophagus, stomach and duodenum were obtained. COMPARISON: None. FINDINGS: The esophagus is unremarkable. There is no evidence of gastroesophageal reflux. There is evidence of a small sliding hiatal hernia. No evidence of obstruction. The stomach and duodenum are unremarkable. RAD/Upper GI Dual Contrast IMPRESSION: Small sliding hiatal hernia without gastroesophageal reflux. Electronically Signed: Hu Reina, at 11:07 EDT , Service support ,
== END | disposition home or self-care (01) ==
LOC: RAD 09:45
PROVIDERS: PCP Family Medicine; Referring Provider Surgery; Visit Provider Surgery
DX: R07.89 Other chest pain (principal)
CPT/HCPCS: 74246

== ENCOUNTER 2022-08-30 12:02 | Emergency (ER) | payer MEDICARE, SELFPAY ==
[2022-08-30] VITALS (9 sets, daily range): BP systolic 132–155; BP diastolic 75–89; PULSE 70–86; RESP 14–18; TEMP 36.3–37; O2SAT 88–94; BMI 44.5
--- NOTE | 2022-08-30 12:39 | EKG12_ITS ---
Test Reason : Blood Pressure : / mmHG Vent. Rate : 072 BPM Atrial Rate : 072 BPM P-R Int : 236 ms QRS Dur : 168 ms QT Int : 442 ms P-R-T Axes : 030 -67 017 degrees QTc Int : 483 ms Sinus rhythm with 1st degree A-V block Left axis deviation Non-specific intra-ventricular conduction block Left ventricular hypertrophy ( R in aVL , [place] product ) Abnormal ECG Confirmed by DEEDEE MALDONADO, ZAYDA ([id number]), desk editor JERICHO MCKEON ([id number]) on 08/31/2022 9:17:30 AM Referred By: BERNA Confirmed By:ZAYDA MARK MD
--- NOTE | 2022-08-30 12:39 | EX.ED.DYSGE1 ---
HPI History of Present Illness Chief Complaint: Shortness of Breath Detail of Chief Complaint: COVID Informant: patient Onset/Context/Timing Onset: Days (3-day) Context: Gradual Onset Current Severity: Mild Maximum Severity: Moderate Narrative Narrative: Patient presents with shortness of breath and cough. He had a positive COVID test this morning. He states over the weekend he decided had cold-like symptoms. He has had borderline fever around 100.7. Today the symptoms moved out into his chest. [facility] Medical History (Updated 08/30/22 @ 15:[address] Nidhi Carrasco MD) Abnormal gait Anemia Anxiety and depression Congenital spondylolisthesis GERD (gastroesophageal reflux disease) HDL deficiency Hypertension Lumbosacral neuritis Lupus Monoclonal paraproteinemia MARCELINA on CPAP Osteoarthritis Prediabetes Seborrheic keratosis Home Medications azelastine 137 mcg (0.1 %) nasal spray aerosol 1 spray BID allergies 06/25/14 [History Last Taken 08/30/22 08:00] bupropion HCl 150 mg tablet,12 hr sustained-release 150 mg PO TID depression 06/25/14 [History Last Taken 08/30/22 12:00] fluticasone propionate 50 mcg/actuation nasal spray,suspension 1 spray BID allergies 06/25/14 [History Last Taken 08/30/22 08:00] lorazepam 1 mg tablet (Ativan) 1 mg PO BID PRN Anxiety 06/25/14 [History Last Taken 02/29/20 15:00] risperidone 1 mg tablet 1 mg PO QHS sleep 06/25/14 [History Last Taken 08/29/22 22:00] aspirin 81 mg tablet,delayed release 81 mg PO DAILY@0800 30 days 06/26/14 [Rx Last Taken 08/30/22 08:00] metoprolol tartrate 25 mg tablet 50 mg PO DAILY blood pressure 11/30/17 [History Last Taken 08/30/22 08:00] zolpidem 5 mg tablet 2 mg PO QHS PRN PRN Sleep 03/01/20 [History Last Taken 02/29/20 21:00] amlodipine 5 mg tablet 5 mg PO DAILY 08/30/22 [History Last Taken 08/30/22 08:00] ascorbic acid (vitamin C) (Vitamin C oral powder) 2 g PO Q6H 08/30/22 [History Last Taken 08/30/22 08:00] duloxetine 60 mg capsule,delayed release 60 mg PO BID 08/30/22 [History Last Taken 08/30/22 08:00] ferrous sulfate 325 mg (65 mg iron) tablet (Iron (ferrous sulfate)) 325 mg PO DAILY 08/30/22 [History Last Taken 08/30/22 08:00] fexofenadine 180 mg tablet 180 mg PO DAILY 08/30/22 [History Last Taken 08/30/22 08:00] hydrocodone-acetaminophen 5-325mg 5mg-325mg 1 tab PO Q8H PRN PRN PAIN 08/30/22 [History Last Taken 08/30/22 08:00] hydroxychloroquine 200 mg tablet 200 mg PO BID 08/30/22 [History Last Taken 08/30/22 08:00] meloxicam 15 mg tablet 15 mg PO DAILY 08/30/22 [History Last Taken 08/30/22 08:00] pregabalin 225 mg capsule 225 mg BID 08/30/22 [History Last Taken 08/30/22 08:00] tamsulosin 0.4 mg capsule 0.4 mg PO QHS 08/30/22 [History Last Taken 08/29/22 22:00] Allergy/AdvReac Type Severity Reaction Status Date / Time niacin Allergy Other Verified 08/30/22 12:26 oseltamivir [From Tamiflu] Allergy Anaphylaxis Verified 08/30/22 12:26 Penicillins Allergy Rash Verified 08/30/22 12:26 povidone-iodine Allergy Other Verified 08/30/22 12:26 [From Betadine] pseudoephedrine HCl Allergy Anaphylaxis Verified 08/30/22 12:26 [From Sudafed] soap [From Betadine] Allergy Other Verified 08/30/22 12:26 soy Allergy Unknown Verified 08/30/22 12:26 trazodone Allergy Anaphylaxis Verified 08/30/22 12:26 Surgical History (Updated 08/30/22 @ 15:[address] Rosa Maria Godfrey MD) H/O lumbosacral spine surgery History of bilateral carpal tunnel release History of hip replacement History of right shoulder replacement Social History (Updated 08/30/22 @ 15:[address] Rosa Maria Godfrey MD) household members: spouse Smoking Status: Former smoker how long ago did patient quit smoking: Quit 43-44 yrs prior, smoked ~ 12 yrs 1 ppd until quit. alcohol intake: never substance use type: does not use ROS ROS ED Constitutional Constitutional ED: Reports fever(s); Denies chills Eyes Eyes: Denies change in vision or discharge from eye(s) ENT ENT ED: Reports rhinorrhea and other Details: Congestion ; Denies discharge from eye(s) or sore throat Cardiovascular Cardiovascular: Reports other Details: Rib pain ; Denies chest pain or palpitations Respiratory/Chest Respiratory/Chest: Reports cough and dyspnea Gastrointestinal Gastrointestinal: Denies abdominal pain, diarrhea, nausea or vomiting Genitourinary Genitourinary ED: Denies difficulty urinating or dysuria Musculoskeletal Musculoskeletal: Reports myalgias; Denies back pain or extremity pain Integumentary Denies Abrasions or rash Neurologic Neurologic: Reports headache(s) and weakness Psychiatric Psychiatric: Denies anxiety or depression Endocrine Endocrinology: Denies polydipsia or polyuria Allergic/Immunologic Allergic/Immunologic ED: Denies lip swelling or urticaria EXAM Physical Exam Const Vital Signs: 08/30/22 12:03 08/30/22 12:03 08/30/22 12:06 Temperature 97.4 F L 98.3 F 98.4 F Temperature Source Temporal Temporal Temporal Pulse Rate 86 72 72 Respiratory Rate 18 16 14 Respiratory Effort Respiratory Depth Respiratory Pattern Blood Pressure 152/78 H 132/76 H 132/76 H Blood Pressure Mean 102 94 94 Pulse Ox 94 92 92 Oxygen Delivery Method Room Air Room Air Room Air Oxygen Flow Rate (L/min) 08/30/22 13:02 08/30/22 13:06 08/30/22 14:09 Temperature 98.3 F Temperature Source Temporal Pulse Rate 72 Respiratory Rate 17 Respiratory Effort Short of Breath Respiratory Depth Shallow Respiratory Pattern Normal Blood Pressure 155/75 H Blood Pressure Mean 101 Pulse Ox 92 88 Oxygen Delivery Method Room Air Room Air Room Air Oxygen Flow Rate (L/min) 08/30/22 14:10 Temperature Temperature Source Pulse Rate Respiratory Rate Respiratory Effort Respiratory Depth Respiratory Pattern Blood Pressure Blood Pressure Mean Pulse Ox 93 Oxygen Delivery Method Nasal Cannula Oxygen Flow Rate (L/min) 2 Positive well nourished and well developed General Appearance ED: well developed HEENT Reports normocephalic and head/scalp atraumatic Eyes PERRL and EOMs intact bilaterally Neck supple Chest Wall inspection of chest normal and palpation of chest normal Resp normal respiratory effort and clear to auscultation bilaterally Cardio regular rate and regular rhythm GI normal to inspection, nondistended, normoactive bowel sounds Palpation: soft Extremity normal to inspection Neuro oriented x3 and no sensory deficits noted Sensorium / Orientation: alert Motor Exam: strength 5/5 throughout Psych mental status grossly normal Skin no rashes or lesions noted MDM MDM MDM Narrative Medical decision making narrative: EKG, chest x-ray, lab work obtained. Lab Data Attestation: I reviewed the patient's lab results. Labs: Laboratory Results - last 24 hr 08/30/22 08/30/22 12:20 12:20 WBC 8.6 RBC 3.94 L Hgb 12.1 L Hct 36.3 L MCV 92.1 MCH 30.7 MCHC 33.3 RDW Std Deviation 49.4 H RDW Coeff of Rosa 14.6 Plt Count 240 MPV 8.5 Immature Gran % (Auto) 0.900 Neut % (Auto) 68.2 Lymph % (Auto) 12.8 L Livingston % (Auto) 14.1 H Eos % (Auto) 3.4 Baso % (Auto) 0.6 Absolute Neuts (auto) 5.8 Absolute Lymphs (auto) 1.10 Nucleated RBC % 0 Sodium 131 L Potassium 4.2 Chloride 98 Carbon Dioxide 28.0 Anion Gap 5 BUN 14 Creatinine 0.77 Estim Creat Clear Calc 63.65 Est GFR (MDRD) Af Amer 126 Est GFR (MDRD) Non-Af 104 BUN/Creatinine Ratio 18.1 Glucose 127 H Calcium 8.4 L Total Bilirubin 0.50 Direct Bilirubin 0.14 AST 16 ALT 35 Alkaline Phosphatase 56 Total Protein 6.9 Albumin 3.5 Globulin 3.4 Radiography Chest X-Ray - ED: 1 View, Read by ED Physician, Chronic Changes and No Infiltrates Diagnostic Testing: Clinical Impression(s) from Imaging Studies Chest X-Ray 08/30/22 13:05 IMPRESSION: Prominence of the central pulmonary arteries. Mild increased markings at the left lung base suggestive of atelectasis. Electronically Signed: uH Reina MD at 13:35 EST , EKG Initial EKG: Attestation: I personally reviewed and interpreted this EKG as follows: Interpretation: Sinus Rhythm (Sinus at 72 with first-degree AV block. SC is 236. No acute ischemia.) Treatment and Re-Evaluation Narrative: CBC and chemistry studies are unremarkable other than hemoglobin slightly low at 12.1. LFTs are unremarkable. Chest x-ray per my interpretation shows chronic changes with no focal infiltrate. Radiology interpretation is reviewed and agrees. While sitting at rest I observed the patient's O2 sat dropped to 88% with good waveform. He was placed on 2 L nasal cannula. I spoke with social work and we are still able to send the patient home on oxygen with a positive COVID test. COVID swab was obtained here and does confirm his positive home test. Patient be discharged with home oxygen and will continue supportive care. Return instructions given. Discharge Plan Triage Chief Complaint: Shortness of Breath ED Provider: Nidhi Carrasco Dx/Rx/DC Orders Clinical Impression: COVID-19 Instructions: Coronavirus Disease 2019 (COVID-19): Overview, Coronavirus Disease 2019 (COVID-19): Caring for Yourself or Others Prescriptions: No Action bupropion HCl 150 MG tablet sustained-release 12 hr 150 mg PO TID Label Comments: DEPRESSION lorazepam [Ativan] 1 MG tablet 1 mg PO BID PRN (Reason: Anxiety) Label Comments: ANXIETY azelastine 1 SPRAY aerosol,spray 1 spray NASAL BID Label Comments: ANTIHISTAMINE fluticasone propionate 1 SPRAY spray,suspension 1 spray NASAL BID Label Comments: ALLERGIES risperidone 1 MG tablet 1 mg PO QHS Label Comments: DEPRESSION aspirin 81 MG tablet 81 mg PO DAILY@0800 30 Days 0RF Rx Instructions: heart health metoprolol tartrate 25 MG tablet 50 mg PO DAILY zolpidem 5 MG tablet 2 mg PO QHS PRN PRN (Reason: Sleep) meloxicam 15 mg tablet 15 mg PO DAILY tamsulosin 0.4 mg capsule 0.4 mg PO QHS hydroxychloroquine 200 mg tablet 200 mg PO BID pregabalin 225 mg capsule 225 mg BID fexofenadine 180 mg tablet 180 mg PO DAILY amlodipine 5 mg tablet 5 mg PO DAILY duloxetine 60 mg capsule,delayed release(DR/EC) 60 mg PO BID hydrocodone-acetaminophen 5-325 mg tablet 1 tab PO Q8H PRN PRN (Reason: PAIN) Vitamin C Powder 2 g PO Q6H ferrous sulfate [Iron (ferrous sulfate)] 325 mg (65 mg iron) Tablet 325 mg PO DAILY Primary Care Provider: Alex Lambert Referrals: Scott Yang MD [Non-Staff] - 1-2 Weeks Disposition Disposition: Home, Self Care
[2022-08-30 12:49] LABS: Absolute Neutrophil Count 5.8 X10^3/uL (2.0-7.7); Basophil# 0.05 X10^3/uL; Basophil% 0.6 % (0-1); Eosinophil# 0.29 X10^3/uL; Eosinophils% 3.4 % (0-5); Hematocrit 36.3 % (40-54); Hemoglobin 12.1 g/dL (13.0-16.5); Lymphocyte % 12.8 % (19-41); Mean Corp Hgb Conc 33.3 g/dL (32-36); Mean Corpuscular Hgb 30.7 pg (27.0-32.0); Mean Corpuscular Volume 92.1 fL (80-94); Mean Platelet Vol. 8.5 fl (6.2-12.0); Monocyte# 1.21 X10^3/uL; Monocyte% 14.1 % (0-10); NRBC Flagged by Analyzer 0 % (0-5); Neutrophil # 5.84 X10^3/uL (2.7-7.7); Neutrophil % 68.2 % (47-70); Platelet Count 240 K/mm3 (150-450); RBC Distribution Width CV 14.6 % (11.6-14.6); RBC Distribution Width SD 49.4 fl (35.1-43.9); Red Blood Count 3.94 M/mm3 (4.6-6.2); White Blood Count 8.6 K/mm3 (4.4-11.0)
--- NOTE | 2022-08-30 13:05 | RAD_ITS ---
STUDY: X-RAY CHEST REASON FOR EXAM: Male, 71 years old. covid, sob TECHNIQUE: Single AP portable view of the chest. COMPARISON: Comparison is made with prior study dated 02/29/2020. FINDINGS: EKG electrodes are seen. Minimal increased markings at the left lung base suggestive of linear atelectasis. There is no demonstrated pleural abnormality. There is borderline cardiomegaly. Normal mediastinum and parviz. There is prominence of the pulmonary hilar arteries without peripheral pulmonary vascular congestion, suggesting pulmonary hypertension. Normal visualized aortic arch and descending thoracic aorta. Normal visualized thoracic spine. Status post left shoulder replacement. There is no demonstrated abnormality of the visualized soft tissue structures of the upper abdomen. RAD/Chest 1 View (Portable) IMPRESSION: Prominence of the central pulmonary arteries. Mild increased markings at the left lung base suggestive of atelectasis. Electronically Signed: Hu Reina MD at 13:35 EST ,
[2022-08-30 13:13] LABS: AST(SGOT) 16 U/L (15-37); Alanine Aminotransfer ALT/SGPT 35 U/L (16-61); Albumin, Serum 3.5 g/dL (3.2-5.0); Alkaline Phosphatase 56 U/L (45-117); Anion Gap 5 (5-15); BUN 14 mg/dL (7-18); BUN/Creat Ratio 18.1 RATIO (10-20); Bilirubin, Direct 0.14 mg/dL (0.00-0.30); Calcium,Total 8.4 mg/dL (8.5-10.1); Chloride 98 mmol/L (98-107); Creatinine, Serum 0.77 mg/dL (0.70-1.30); EST Glomerular Filtration Rate 104 mL/min (>60); Est Glom Filt Rate - Afr Amer 126 mL/min (>60); Estimated Creatinine Clearance 63.65 ml/min; Globulin 3.4 g/dL (2.2-4.2); Glucose 127 mg/dL (74-106); Potassium 4.2 mmol/L (3.5-5.1); Protein, Total 6.9 g/dL (6.4-8.2); Sodium Level 131 mmol/L (136-145)
[2022-08-30] MEDS: Oxymetazoline 0.05% 1 SPRAY SPRAY.BTL NASAL (14:34)
--- NOTE | 2022-08-30 17:52 | CM.ED ---
Referral Source: MD Referral Reason: Home oxygen Per MD patient covid positive. Patient was 88% on room air laying and 89% walking. Patient would benefit from home oxygen. GABE met with patient and his . Voiced no preference regarding home oxygen supplier. GABE called Shira at [facility] [place] and advised her of referral. Shira said to enter the referral on [employer]. GABE enterred referral via [employer]. Patient was supplied with ED tank for home oxygen and SANDRA Wilkerson was advised to have patient call [facility] [place] when arrived home. [employer] referral sent. [facility] email sent regarding patient. Plan: Home with Home oxygen. Luda LLOYD
== END 2022-08-30 16:37 | disposition home or self-care (01) ==
PROVIDERS: Emergency Provider Emergency Medicine; PCP Family Medicine; Visit Provider Emergency Medicine
DX: U07.1 COVID-19 (principal); R06.02 Shortness of breath; I10 Essential (primary) hypertension; Z87.891 Personal history of nicotine dependence
CPT/HCPCS: 71045; 80048; 80076; 85025; 87811; 93005; 99283; A4216

== ENCOUNTER 2025-09-21 02:56 | Emergency (ER) | payer MEDICARE, SELFPAY ==
[2025-09-21 02:57] VITALS: BP 183/81; PULSE 60; RESP 20; TEMP 36.4; O2SAT 91; BMI 40.0
--- NOTE | 2025-09-21 03:06 | CT_ITS ---
PROCEDURE: SPINE CERVICAL WITHOUT CONTRAS 09/21/2025 REASON FOR EXAM: NECK PAIN TECHNIQUE: Procedure Code: CTSPC Modality: CT Procedure: SPINE CERVICAL WITHOUT CONTRAS Coronal and Sagittal reconstruction series were provided. One or more dose reduction techniques were used (e.g., Automated exposure control, adjustment of the mA and/or kV according to patient size, use of iterative reconstruction technique. RADIATION DOSE SUMMARY: CTDI Vol 16.68 mGy DLP :323.70 mGycm COMPARISON: none FINDINGS: Straightened cervical lordosis denoting myospasm. Mild C2 and C3 anterolithesis. The examined vertebral bodies show no structural collapse or posterior neural elements fractures. Intact atlanto-axial interval. Degenerative changes of the atlanto-axial articulation with related capsular calcifications. Cervical spondylodegenerative changes evident by marginal osteophytic lipping and multilevel subchondral sclerosis of the examined vertebral end plates with multilevel disc spaces narrowing. Multilevel degenerative unco-vertebral arthropathy with osteophytes formation seen encroaching upon the corresponding neural exit foramina. Multilevel degenerative facet arthropathy. Multilevel nuchal longitudinal ligament calcifications. Multilevel diffuse disc bulges with posterior osteophytes and annular calcifications indenting the theca and encroaching upon the related neural exit foramina. No paraspinal masses. Vascular atheromatous calcifications CT/Spine Cervical without Contras IMPRESSION: Straightened cervical curve denoting myospasm. No vertebral fractures, structural collapse or acute dislocation. Cervical spondylodegenerative changes with multilevel uncovertebral and facet a rthropathy along with diffuse disc bulges inducing spinal canal and neural exit pathway compromise. [facility]
--- NOTE | 2025-09-21 03:06 | CT_ITS ---
PROCEDURE: BRAIN/HEAD WITHOUT CONTRAST 09/21/2025 REASON FOR EXAM: HEAD INJURY TECHNIQUE: Procedure Code: CTBR Modality: CT Procedure: BRAIN/HEAD WITHOUT CONTRAST Coronal and Sagittal reconstruction series were provided. One or more dose reduction techniques were used (e.g., Automated exposure control, adjustment of the mA and/or kV according to patient size, use of iterative reconstruction technique. RADIATION DOSE SUMMARY: CTDI Vol 44.99 mGy DLP :846.73 mGycm COMPARISON: none FINDINGS: Right posterior parietal scalp edema and hematoma noted. Bilateral cerebral subcortical and periventricular white matter hypodensities, suggestive of chronic small vessel ischemia. Olvera-white matter differentiation is maintained. Unremarkable posterior fossa structures. No intracerebral or extra axial hemorrhage. Dilated ventricular system, cortical sulci and extra-axial CSF spaces. No definite calvarial fractures. Hyperostosis frontalis interna. No midline shifts or deformity. The osseous structures in the skull base are unremarkable. Paranasal sinuses show minimal maxillary and ethmoidal mucosal thickening. Vascular atheromatous calcifications. CT/Brain/Head without Contrast IMPRESSION: Right posterior parietal scalp edema and hematoma noted. No acute cerebrovascular abnormalities. If clinical symptoms persist, further e valuation with MRI may be considered as clinically warranted. No intra or extra-axial acute hemorrhage. Bilateral cerebral microvascular ischemic changes with brain involutional chaney es. Reading Location: [place] [id number]
--- OUTSIDE RECORDS SUMMARY | 2025-09-21 03:56 | XMS RPT_ITS | CCD ---
Author Organization [facility] CliniSymd Care Team Providers Care Professional Skater Name Role Phone RICCHETTI, JOSE ANGEL T Unavailable Unavailable RICCHETTI, JOSE ANGEL T Unavailable Unavailable RICCHETTI, JOSE ANGEL T Unavailable Unavailable RICCHETTI, JOSE ANGEL T Unavailable Unavailable MARGARET CHAVIS Unavailable Unavailable Elliot MALDONADO, Edinson Salmon Primary Care Provider Elliot MALDONADO, Edinson Salmon Primary Care Provider [phone] Elliot MALDONADO, Edinson Salmon Primary Care Provider PHILIPPE DAWSON Referring Unavailable EDINSON ZARATE Primary Care Unavailable Edinson Zarate MD Primary Care Provider Nidhi Carrasco Attending Unavailable Alex Zarate Primary Care Unavailable Nahid DEICER REPAIRER PNEUMATIC.Philippe NUNN Unavailable [phone] Elliot MALDONADO, Edinson Salmon Primary Care Provider Dustin DEICER REPAIRER PNEUMATIC.Layo NUNN Unavailable Jeny FLORES, Catrachita Unavailable [phone] PHILIPPE DAWSON Referring Unavailable EDINSON ZARATE Primary Care Unavailable EDINSON ZARATE Primary Care Unavailable HARMAN GILLIAM Attending Unavailable BIANCA DENISE Referring Unavailable EDINSON ZARATE Primary Care Unavailable HARMNA GILLIAM Attending Unavailable BIANCA DENISE Referring Unavailable EDINSON ZARATE Referring Unavailable EDINSON ZARATE Primary Care Unavailable EDINSON THAKUR Attending Unavailabl e EDINSON ZARATE Primary Care Unavailable EDINSON ZARATE Primary Care Unavailable NNAMDI MEJIA Referring Unavailable PAT SEO Attending Unavailable PAT SEO Referring Unavailable KONTAK, EDINSON R Primary Care Unavailable KONTAK, EDINSON R Primary Care Unavailable YONI PENG Attending Unavailable PHILIPPE DAWSON Referring Unavailable PHILIPPE DAWSON Attending Unavailable KONTAK, EDINSON R Primary Care Unavailable KONTAK, EDINSON R Referring Unavailable KONTAK, EDINSON R Primary Care Unavailable KONTAK, EDINSON R Referring Unavailable KONTAK, EDINSON R Primary Care Unavailable KONTAK, EDINSON R Primary Care Unavailable BUNYARD, PAT Huff Referring Unavailable KONTAK, EDINSON R Primary Care Unavailable KONTAK, EDINSON R Attending Unavailable KONTAK, EDINSON R Primary Care Unavailable YONI PENG Referring Unavailable KONTAK, EDINSON R Primary Care Unavailable BUNYARD, PAT Huff Referring Unavailable KONTAK, EDINSON R Primary Care Unavailable KONTAK, EDINSON R Primary Care Unavailable HOA GUERRERO Referring Unavailabl e KONTAK, EDINSON R Primary Care Unavailable BUNVINCENT, PAT Huff Attending Unavailable ELLIOT, EDINSON R Primary Care Unavailable BUNYARD, PAT Huff Referring Unavailable KONTAK, EDINSON R Attending Unavailable KONTAK, EDINSON R Primary Care Unavailable KONTAK, EDINSON R Primary Care Unavailable ANURAG MEJIA Referring Unavailable KONTAK, EDINSON R Primary Care Unavailable BUNYARD, PAT Huff Referring Unavailable KONTAK, EDINSON R Primary Care Unavailable BUNYARD, PAT Huff Attending Unavailable KATELYN FERNANDEZ Attending Unavailable JERRY GUDINO Referring Unavailable ELLIOT, EDINSON Salmon Primary Care Unavailable YONI PENG Admitting Unavailable YONI PENG Attending Unavailable ELLIOT, EDINSON Salmon Primary Care Unavailable Allergies Allergy Classification Reported Allergen(s) Allergy Type Date of Onset Reaction(s) Facility Adrenergic Agonists (6 sources) Pseudoephedrine Drug Allergy 01-19-20 11 Other: See Comments [facility] Angiotensin 2 Receptor Blockers (ARB) (6 sources) Losartan Drug Allergy 09-09-20 21 Cough [facility] Angiotensin Converting Enzyme (STEPHANIE) Inhibitors (6 sources) Lisinopril Drug Allergy 01-15-20 22 Cough [facility] Aspartame (6 sources) Aspartame Drug Allergy 03-06-20 11 Swelling [facility] DULoxetine (6 sources) DULoxetine Drug Allergy 09-08-20 23 Other: See Comments [facility] Work Phone: Niacin (6 sources) Niacin Drug Allergy 01-19-20 11 Other: See Comments [facility] Opioid Agonists (6 sources) traMADol Drug Allergy 03-21-20 13 [facility] Work Phone: Oseltamivir (6 sources) Oseltamivir Drug Allergy 02-12-20 14 Shortness of Breath [facility] Penicillins (antibiotic) (6 sources) Penicillins Drug Allergy 12-10-19 04 [facility] Povidone-Iodine (6 sources) Povidone-Iodine Drug Allergy 04-09-20 13 [facility] Serotonin Reuptake Inhibitors (SSRIs) (6 sources) traZODone Drug Allergy 03-05-20 20 Shortness of Breath [facility] (20 sources) aspartame; Translations: [ASPARTAME] Drug Allergy 03-06-20 11 Swelling [facility] Repository (20 sources) niacin; Translations: [NIACIN] Drug Allergy 01-19-20 11 Other: See Comments [facility] Repository (20 sources) oseltamivir; Translations: [OSELTAMIVIR PHOSPHATE] Drug Allergy 02-12-20 14 Shortness of Breath [facility] Repository (20 sources) Penicillins; Translations: [PENICILLINS] Propensity to adverse reactions to drug (disorder) 12-10-19 04 [facility] Repository (20 sources) povidone-iodine; Translations: [POVIDONE-IODINE] Drug Allergy 04-09-20 13 [facility] Repository (20 sources) pseudoephedrine; Translations: [PSEUDOEPHEDRINE HCL] Drug Allergy 01-19-20 11 Other: See Comments [facility] Repository (20 sources) Seasonal allergy; Translations: [SEASONAL ALLERGIES] Propensity to adverse reactions (disorder) 09-05-20 13 Other: See [facility] Repository (20 sources) traMADol; Translations: [TRAMADOL] Drug Allergy 03-21-20 13 [facility] Repository (20 sources) Lisinopril; Translations: [LISINOPRIL] Drug Allergy 01-15-20 22 Cough [facility] Work Phone: (20 sources) Losartan; Translations: [LOSARTAN] Drug Allergy 09-09-20 21 Cough [facility] Work Phone: (20 sources) traZODone; Translations: [TRAZODONE] Drug Allergy 03-05-20 Shortness of Breath [facility] (1 source) Oseltamivir Drug Allergy 08-30-[address] [facility] Work Phone: (2 sources) Soy protein; Translations: [soy] Allergy to substance 08-30-[address] [facility] Repository (2 sources) soap; Translations: [soap] Allergy to substance 08-30-[address] [facility] Repository (1 source) Oseltamivir Drug Allergy 08-30-[address] [facility] Repository (1 source) traZODone Drug Allergy 08-30-[address] [facility] Repository (20 sources) DULoxetine; Translations: [DULOXETINE] Drug Allergy 09-08-20 Other: See Comments [facility] Work Phone: Medications Current Medications Medication Drug Class(es) Dates Sig (Normalized) Sig (Original) acetaminophen 325 mg / HYDROcodone bitartrate 5 mg oral tablet (20 sources) Opioid Agonist Start: 06-06-2025 End: 07-06-2025 take 1 tablet by mouth every eight hours as needed for pain HYDROcodone-acetami nophen (NORCO) 5-325 mg per tablet Indications: Glenohumeral arthritis Take 1 tablet by mouth every 8 hours as needed for pain for up to 30 days. 90 tablet 06/06/2025 07/06/2025 Active Start: 04-24-2025 End: 05-24-2025 take 1 tablet by mouth every eight hours as needed for pain HYDROcodone-acetaminophen (NORCO) 5-325 mg per tablet Indications: Glenohumeral arthritis Take 1 tablet by mouth every 8 hours as needed for pain for up to 30 days. 90 tablet 04/24/2025 05/24/2025 Active Start: 02-15-2025 End: 04-21-2025 take 1 tablet by mouth every eight hours as needed for pain HYDROcodone-acetaminophen (NORCO) 5-325 mg per tablet Indications: Glenohumeral arthritis Take 1 tablet by mouth every 8 hours as needed for pain for up to 30 days. 90 tablet 03/22/2025 04/21/2025 Active Start: 01-11-2025 End: 02-10-2025 take 1 tablet by mouth every eight hours as needed for pain HYDROcodone-acetaminophen (NORCO) 5-325 mg per tablet Indications: Glenohumeral arthritis Take 1 tablet by mouth every 8 hours as needed for pain for up to 30 days. 90 tablet 01/11/2025 02/10/2025 Active Start: 11-06-2024 End: 01-02-2025 take 1 tablet by mouth every eight hours as needed for pain HYDROcodone-acetaminophen (NORCO) 5-325 mg per tablet Indications: Glenohumeral arthritis Take 1 tablet by mouth every 8 hours as needed for pain for up to 30 days. 90 tablet 12/03/2024 01/02/2025 Active Start: 10-02-2024 End: 11-01-2024 take 1 tablet by mouth every eight hours as needed for pain HYDROcodone-acetaminophen (NORCO) 5-325 mg per tablet Indications: Glenohumeral arthritis Take 1 tablet by mouth every 8 hours as needed for pain for up to 30 days. 90 tablet 10/02/2024 11/01/2024 Active Start: 07-13-2024 End: 09-28-2024 take 1 tablet by mouth every eight hours as needed for pain HYDROcodone-acetaminophen (NORCO) 5-325 mg per tablet Indications: Glenohumeral arthritis Take 1 tablet by mouth every 8 hours as needed for pain for up to 30 days. 90 tablet 08/29/2024 09/28/2024 Active Start: 05-22-2024 End: 06-21-2024 take 1 tablet by mouth every eight hours as needed for pain HYDROcodone-acetaminophen (NORCO) 5-325 mg per tablet Indications: Glenohumeral arthritis Take 1 tablet by mouth every 8 hours as needed for pain for up to 30 days. 90 tablet 05/22/2024 06/21/2024 Active Start: 03-20-2024 End: 04-19-2024 take 1 tablet by mouth every eight hours as needed for pain HYDROcodone-acetaminophen (NORCO) 5-325 mg per tablet Indications: Glenohumeral arthritis Take 1 tablet by mouth every 8 hours as needed for pain for up to 30 days. 90 tablet 0 03/20/2024 04/19/2024 Start: 03-29-2023 End: 08-18-2023 take 0.5-1 tablets by mouth every eight hours as needed for pain HYDROcodone-Acetaminophen (NORCO) 10-325 mg per tablet Indications: Glenohumeral arthritis Take 0.5-1 tablets by mouth every 8 hours as needed for pain. 60 tablet 07/29/2023 08/18/2023 Discontinued Start: 02-07-2023 End: 03-27-2023 take 0.5-1 tablets by mouth every eight hours as needed for pain HYDROcodone-Acetaminophen (NORCO) 10-325 mg per tablet Indications: Glenohumeral arthritis Take 0.5-1 tablets by mouth every 8 hours as needed for pain. 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 30 tablet 12/23/2022 02/07/2023 Discontinued Comment on above: Take 1 tablet by reji th every 8 hours as needed for pain. Take 0.5-1 tablets b y mouth every 8 hours as needed for pain. Take 1 tablet by reji th every 8 hours as needed for pain for up to 30 days. Take 0.5 tablets by mouth every 8 hours as needed for pain. [id number] 200 actuat albuterol 0.09 mg/actuat metered dose inhaler (20 sources) beta2-Adrenergic Agonist Start: 05-20-2025 take 2 puff(s) by inhalation every four hours as needed albuterol HFA (VENTOLIN HFA) 90 mcg/actuation inhaler Inhale 2 puffs as instructed every 4 hours as needed. 18 g 05/20/2025 Active Start: 02-19-2025 End: 05-18-2025 take 2 puff(s) by inhalation every four hours as needed albuterol HFA (VENTOLIN HFA) 90 mcg/actuation inhaler Inhale 2 puffs as instructed every 4 hours as needed. 18 g 5 02/19/2025 05/18/2025 Discontinued Start: 09-10-2024 take 2 puff(s) by in halation every four hours as needed albuterol HFA (VENTOLIN HFA) 90 mcg/actuation inhaler Inhale 2 Puffs as instructed every 4 hours as needed. 18 g 5 09/10/2024 Active Start: 07-02-2024 End: 09-08-2024 take 2 puff(s) by inhalation every four hours as needed albuterol HFA (VENTOLIN HFA) 90 mcg/actuation inhaler Inhale 2 Puffs as instructed every 4 hours as needed. 18 g 5 07/02/2024 09/08/2024 Discontinued Start: 08-31-2022 End: 01-11-2023 take 2 puff(s) by inhalation every six hours as needed for wheezing albuterol HFA (PROVENTIL HFA, VENTOLIN HFA) 90 mcg/actuation inhaler Indications: COVID-19 virus infection , SOB (shortness of breath) , Acute cough Inhale 2 Puffs as instructed every 6 hours as needed for wheezing/shortness of breath. 18 g 0 10/05/2022 01/11/2023 Discontinued Comment on above: Inhale 2 Puffs as in structed every 6 hours as needed for wheezing/shortness of breath. amLODIPine 5 mg oral tablet (20 sources) Dihydropyridine Calcium Channel Tonya Start: 09-24-20 24 End: 04-30-20 take 1 tablet by mouth once daily amLODIPine (NORVASC) 5 mg tablet Take 1 tablet by mouth once daily. 90 tablet 3 05/01/2025 Active Start: 12-23-2022 End: 09-08-2024 take 1 tablet by mouth once daily amLODIPine (NORVASC) 5 mg tablet Take 1 tablet by mouth once daily. 90 tablet 3 08/28/2024 09/08/2024 Discontinued Start: 04-13-2022 End: 12-08-2022 take 1 tablet by mouth once daily amLODIPine (NORVASC) 5 mg tablet Take 1 tablet by mouth once daily. 90 tablet 0 06/10/2022 09/08/2022 Discontinued Start: 01-14-2022 take 1 tablet by reji th once daily amLODIPine (NORVASC) 5 mg tablet Take 1 tablet by mouth once daily. 30 tablet 2 01/14/2022 Active Comment on above: Take 1 tablet by reji th once daily. TAKE 1 TABLET DAILY Ascorbic Acid (20 sources) Vitamin C Start: 08-30-2022 take 2 g by mouth every six hours Ascorbic Acid (Vitamin C) (Vitamin C) Powder Active 2 GM PO EVERY 6 HOURS August 30, 2022 12:00am ASCORBIC ACID (V ITAMIN C ORAL) Take by mouth once daily. Active ASCORBIC ACID (V ITAMIN C ORAL) Take by mouth once daily. 0 Active Comment on above: Take by mouth once d aily. aspirin 81 mg delayed release oral tablet (20 sources) Platelet Aggregation Inhibitor, Nonsteroidal Anti-inflammatory Drug Start: 06-26-2014 take 81 mg by mouth once daily Aspirin Active 81 MG PO DAILY@0800 30 June 25, 2014 11:00pm heart Minutizer Start: 06-25-2014 End: 06-26-2014 take 325 mg by mouth once daily Aspirin Discontinued 325 MG PO DAILY@0800 June 24, 2014 11:00pm June 26, 2014 12:12pm Comment on above: Take 81 mg by mouth once daily. azaTHIOprine 50 mg oral tablet (20 sources) Purine Antimetabolite Start: 11-28-19 End: 03-14-20 take 3 tablets by mouth once daily azaTHIOprine (IMURAN) 50 mg tablet Take 3 tablets by mouth once daily. 270 tablet 03/14/2025 Active Start: 11-02-2024 End: 11-28-2024 take 2 tablets by mouth once daily azaTHIOprine (IMURAN) 50 mg tablet Take 2 tablets by mouth once daily. 60 tablet 1 11/02/2024 11/28/2024 Discontinued Start: 10-04-2024 End: 10-18-2024 take 1 tablet by mouth once daily azaTHIOprine (IMURAN) 50 mg tablet Take 1 tablet by mouth once daily. 30 tablet 1 10/18/2024 Active azelastine hydrochloride 0.137 mg/actuat metered dose nasal spray (20 sources) Histamine-1 Receptor Antagonist Start: 11-07-2023 End: 09-24-2025 take 1 spray(s) nasal route twice daily azelastine 0.1% nasal spray Indications: Seasonal allergic rhinitis due to pollen Use 1 [place] in each nostril two times a day. 90 mL 3 09/24/2024 09/24/2025 Active Start: 08-02-2023 End: 11-04-2023 take 1 spray(s) nasal route twice daily azelastine 0.1% nasal spray Indications: Seasonal allergic rhinitis due to pollen USE 1 SPRAY IN EACH NOSTRIL TWICE A DAY 30 mL 6 08/02/2023 11/04/2023 Discontinued Start: 07-20-2021 End: 08-02-2023 take 1 spray(s) nasal route twice daily azelastine (ASTELIN, ASTEPRO) 0.1% nasal spray Indications: Seasonal allergic rhinitis due to pollen Use 1 [place] in each nostril twice daily. 30 mL 5 07/22/2022 08/02/2023 Discontinued Start: 06-25-2014 Azelastine Act lina 1 SPRAY NASAL TWICE A DAY June 24, 2014 11:00pm Comment on above: Use 1 [place] in each nostril twice daily. USE 1 SPRAY IN EACH NOSTRIL TWICE A DAY Use 1 [place] in each nostril two times a day. 12 hr buPROPion hydrochloride 150 mg extended release oral tablet (20 sources) Aminoketone Start: 4 take 150 mg by mouth three times daily Bupropion Hcl Active 150 MG PO THREE TIMES A DAY June 24, 2014 11:00pm take 2 tablets by mouth twice da brijesh buPROPion (WELLBUTRIN) 75 mg tablet Take 150 mg by mouth twice daily. Active take 2 tablets by mo uth three times daily buPROPion (WELLBUTRIN) 75 mg tablet Take 150 mg by mouth three times daily. 0 Active Comment on above: Take 150 mg by mouth three times daily. Take 150 mg by mouth twice daily. CPAP (20 sources) Start: 06-27-2018 CPAP Indicatio ns: MARCELINA (obstructive sleep apnea) , MARCELINA on CPAP Continue BiPAP with new settings: @ 14/8 cm of water with humidification. No new equipment is needed. 1 Device 06/27/2018 Active Start: 06-27-2018 CPAP Indicatio ns: MARCELINA (obstructive sleep apnea) , MARCELINA on CPAP Continue BiPAP with new settings: @ 14/8 cm of water with humidification. No new equipment is needed. 1 Device 0 06/27/2018 Active Comment on above: Continue BiPAP with new settings: @ 14/8 cm of water with humidification. No new equipment is needed. CPAP/BIPAP/OTHER (20 sources) Start: 03-05-2024 End: 07-21-2051 CPAP/BIPAP/OTHER Replacement autobipap 18/9 with PS of 5cmH2O DME [employer] 1 Each 03/05/2024 07/21/2051 Active Start: 03-05-2024 End: 07-21-2051 CPAP/BIPAP/OTHER Replacement autobipap 18/9 with PS of 5cmH2O DME [employer] 1 Each 0 03/05/2024 07/21/2051 Active Start: 01-24-2023 End: 02-13-2024 CPAP/BIPAP/OTHER Type .CPAPS ettings into a note to see current settings/supplies/DME information. 1 Each 01/24/2023 02/13/2024 Discontinued Start: 01-24-2023 End: 02-13-2024 CPAP/BIPAP/OTHER Type .CPAPS ettings into a note to see current settings/supplies/DME information. 1 Each 0 01/24/2023 02/13/2024 Discontinued Start: 01-24-2023 End: 06-10-2050 CPAP/BIPAP/OTHER Type .CPAPS ettings into a note to see current settings/supplies/DME information. 1 Each 0 01/24/2023 06/10/2050 Active Start: 09-14-2022 End: 02-13-2024 CPAP/BIPAP/OTHER Type .CPAPS ettings into a note to see current settings/supplies/DME information. 1 Each 09/14/2022 02/13/2024 Discontinued Start: 09-14-2022 End: 02-13-2024 CPAP/BIPAP/OTHER Type .CPAPS ettings into a note to see current settings/supplies/DME information. 1 Each 0 09/14/2022 02/13/2024 Discontinued Start: 09-14-2022 End: 01-29-2050 CPAP/BIPAP/OTHER Type .CPAPS ettings into a note to see current settings/supplies/DME information. 1 Each 0 09/14/2022 01/29/2050 Active Comment on above: Type .CPAPSettings i nto a note to see current settings/supplies/DME information. 12 hr dextromethorphan hydrobromide 60 mg / guaiFENesin 1200 mg extended release oral tablet (20 sources) Uncompetitive F-eejgzt-U-aspartate Receptor Antagonist, Sigma-1 Agonist Start: 2024 take 60-1200 mg by mouth every twelve hours dextromethorphan- guaiFENesin (MUCINEX-DM) 60-1,200 mg tablet Take 1 tablet by mouth every 12 hours. 56 tablet 11 10/15/2024 Active doxycycline hyclate 100 mg oral tablet (2 sources) Tetracycline-class Drug Start: 2022 End: 2022 take 1 tablet by mouth twice daily doxycycline (VIBRA-TABS) 100 mg tablet Take 1 tablet by mouth two times a day for 5 days. 10 tablet 0 08/22/2023 08/27/2023 Active Start: 02-29-2020 End: 03-01-2020 take 100 mg by mouth twice daily Doxycycline Monohydrate Discontinued 100 MG PO TWICE A DAY February 28, 2020 11:00pm March 01, 2020 11:03am Comment on above: Take 1 tablet by [facility] two times a day for 5 days. DULoxetine 60 mg delayed release oral capsule (20 sources) Serotonin and Norepinephrine Reuptake Inhibitor Start: 2 take 60 mg by mouth twice daily Duloxetine Active 60 MG PO TWICE A DAY August 30, 2022 12:00am Start: 01-14-2022 End: 07-23-2022 take 1 capsule by mouth twice daily DULoxetine (CYMBALTA) 60 mg capsule Take 60 mg by mouth twice daily. 0 01/14/2022 07/23/2022 Discontinued (Clinical Decision) Start: 01-14-2022 take 1 capsule by mo [facility] once daily DULoxetine (CYMBALTA) 60 mg capsule Take 60 mg by mouth once daily. 0 01/14/2022 Active Comment on above: Take 60 mg by mouth once daily. Take 60 mg by mouth twice daily. ferrous sulfate 325 mg oral tablet (1 source) Start: 2 take 1 tablet by mouth once daily Ferrous Sulfate (Iron (Ferrous Sulfate)) 325 mg (65 mg iron) Tablet Active 325 MG PO DAILY August 30, 2022 12:00am fexofenadine hydrochloride 180 mg oral tablet (20 sources) Histamine-1 Receptor Antagonist Start: 2 End: 4 take 1 tablet by mouth once daily fexofenadine (ANÍBAL) 180 mg tablet Take 1 tablet by mouth once daily. 90 tablet 3 05/09/2024 Active End: 01-14-2022 fexofenadine HCl (ANÍBAL OR AL) Take by mouth. 0 01/14/2022 Discontinued Comment on above: Take 1 tablet by reji th once daily. Take by mouth. TAKE 1 TABLET DAILY fluticasone propionate 0.05 mg/actuat metered dose nasal spray (20 sources) Corticosteroid Start: 3 take 2 spray(s) nasal route once daily fluticasone (FLONASE) 50 mcg/actuation nasal spray USE 2 SPRAYS IN EACH NOSTRIL ONCE DAILY 16 g 11 09/23/2023 Active Start: 04-13-2021 End: 09-23-2023 take 2 spray(s) nasal route once daily fluticasone (FLONASE) 50 mcg/actuation nasal spray Use 2 Sprays in each nostril once daily. 1 Each 5 07/22/2022 09/23/2023 Discontinued Start: 06-25-2014 Fluticasone Pr opionate Active 1 SPRAY NASAL TWICE A DAY June 24, 2014 11:00pm Comment on above: Use 2 Sprays in each nostril once daily. USE 2 SPRAYS IN EACH NOSTRIL ONCE DAILY fluticasone / salmeterol (20 sources) Corticosteroid, beta2-Adrenergic Agonist Start: 4 take 1 puff(s) by inhalation twice daily fluticasone-salmete rol (ADVAIR DISKUS) 250-50 mcg/dose inhaler Inhale 1 Puff as instructed two times a day. 60 Each 5 09/10/2024 Active Start: 04-10-2024 End: 09-08-2024 take 1 puff(s) by inhalation twice daily fluticasone-salmeterol (ADVAIR DISKUS) 250-50 mcg/dose inhaler Inhale 1 Puff as instructed two times a day. 60 Each 5 04/10/2024 09/08/2024 Discontinued Start: 04-10-2024 take 1 puff(s) by in halation twice daily fluticasone-salmeterol (ADVAIR DISKUS) 250-50 mcg/dose inhaler Inhale 1 Puff as instructed two times a day. 60 Each 5 04/10/2024 Active Start: 09-08-2023 End: 11-24-2023 take 1 puff(s) by inhalation twice daily fluticasone-salmeterol (ADVAIR DISKUS) 100-50 mcg/dose inhaler Inhale 1 Puff as instructed two times a day. 1 Each 5 09/08/2023 11/24/2023 Discontinued Start: 09-08-2023 take 1 puff(s) by in halation twice daily fluticasone-salmeterol (ADVAIR DISKUS) 100-50 mcg/dose inhaler Inhale 1 Puff as instructed two times a day. 1 Each 5 09/08/2023 Active Start: 10-01-2022 End: 09-08-2023 take 1 puff(s) by inhalation twice daily fluticasone-salmeterol (ADVAIR DISKUS) 100-50 mcg/dose inhaler Inhale 1 Puff as instructed twice daily. 1 Each 5 10/01/2022 09/08/2023 Discontinued Start: 10-01-2022 take 1 puff(s) by in halation twice daily fluticasone-salmeterol (ADVAIR DISKUS) 100-50 mcg/dose inhaler Inhale 1 Puff as instructed twice daily. 1 Each 5 10/01/2022 Active Comment on above: Inhale 1 Puff as ins tructed twice daily. Inhale 1 Puff as ins tructed two times a day. hydroxychloroquine sulfate 200 mg oral tablet (20 sources) Antimalarial, Antirheumatic Agent Start: 2024 take 1 tablet by mouth twice daily hydrOXYchloroQUINE (PLAQUENIL) 200 mg tablet Indications: Systemic lupus erythematosus with other organ involvement, unspecified SLE type (HCC) Take 1 tablet by mouth two times a day. 180 tablet 1 05/09/2025 Active Start: 02-10-2022 End: 08-22-2024 take 1 tablet by mouth twice daily hydrOXYchloroQUINE (PLAQUENIL) 200 mg tablet Indications: Systemic lupus erythematosus with other organ involvement, unspecified SLE type (HCC) Take 1 tablet by mouth two times a day. 180 tablet 1 08/22/2024 Active Start: 11-19-2021 take 1 tablet by reji th twice daily hydrOXYchloroQUINE (PLAQUENIL) 200 mg tablet Indications: Systemic lupus erythematosus with other organ involvement, unspecified SLE type (HCC) Take 1 tablet by mouth twice daily. 0 11/19/2021 Active Comment on above: Take 1 tablet by reji th twice daily. Take 1 tablet by reji th two times a day. meloxicam 15 mg oral tablet (20 sources) Nonsteroidal Anti-inflammatory Drug Start: 04-02-2022 End: 05-28-2025 take 1 tablet by mouth once daily meloxicam (MOBIC) 15 mg tablet Take 1 tablet by mouth once daily. 90 tablet 1 05/28/2025 Active Start: 10-05-2021 End: 01-14-2022 take 1 tablet by mouth once daily at mealtime meloxicam (MOBIC) 7.5 mg tablet Indications: Polyarthralgia Take 1 tablet by mouth once daily. Take with food. 30 tablet 1 10/05/2021 01/14/2022 Discontinued Comment on above: Take 1 tablet by reji th once daily. Take with food. Take 0.5-1 tablets b y mouth once daily. TAKE ONE-HALF (1/2) TO ONE TABLET DAILY Take 1 tablet by reji th once daily. 24 hr metoprolol succinate 25 mg extended release oral tablet (20 sources) beta-Adrenergic Tonya Start: 01-21-2025 End: 02-15-2025 take 2 tablets by mouth once daily metoprolol succinate ER (TOPROL XL) 25 mg 24 hr tablet Indications: Essential hypertension, benign Take 2 tablets by mouth once daily. 180 tablet 3 02/21/2025 Active Start: 04-12-2023 End: 01-19-2025 take 2 tablets by mouth once daily metoprolol succinate ER (TOPROL XL) 25 mg 24 hr tablet Indications: Essential hypertension, benign Take 2 tablets by mouth once daily. 180 tablet 3 09/11/2024 01/19/2025 Discontinued Start: 04-16-2022 End: 04-10-2023 metoprolol succinate ER (TOP ROL XL) 25 mg 24 hr tablet Indications: Essential hypertension, benign TAKE 2 TABLETS ONCE DAILY 180 tablet 3 10/28/2022 04/10/2023 Discontinued Start: 10-30-2021 take 2 tablets by mo [facility] once daily metoprolol succinate ER (TOPROL XL) 25 mg 24 hr tablet Indications: Essential hypertension, benign Take 2 tablets by mouth once daily. 180 tablet 1 10/30/2021 Active Start: 11-30-2017 take 50 mg by mouth once daily Metoprolol Tartrate Active 50 MG PO DAILY November 30, 2017 9:34pm Start: 06-26-2014 End: 11-30-2017 take 25 mg by mouth twice daily Metoprolol Tartrate Di scontinued 25 MG PO TWICE A DAY June 26, 2014 12:13pm November 30, 2017 9:34pm Start: 06-25-2014 End: 06-26-2014 take 25 mg by mouth once daily Metoprolol Tartrate Dis continued 25 MG PO DAILY June 24, 2014 11:00pm June 26, 2014 12:13pm Comment on above: Take 2 tablets by mo [facility] once daily. TAKE 2 TABLETS ONCE DAILY mirtazapine 15 mg oral tablet (20 sources) Start: 05-10-2025 End: 08-08-2025 take 1 tablet by mouth once daily at bedtime mirtazapine (REMERON) 15 mg tablet Take 1 tablet by mouth daily at bedtime. 90 tablet 05/10/2025 08/08/2025 Active Start: 03-05-2025 take 1 tablet by [facility] once daily at bedtime mirtazapine (REMERON) 15 mg tablet Take 1 tablet by mouth daily at bedtime. 30 tablet 2 03/05/2025 Active molnupiravir 200 mg capsule (2 sources) Start: 05-18-2023 End: 05-23-2023 take 4 capsules by mouth twice daily molnupiravir 200 mg capsule Indications: COVID-19 Take 4 capsules by mouth twice daily for 5 days. 40 capsule 0 05/18/2023 05/23/2023 Active Comment on above: Take 4 capsules by [facility] twice daily for 5 days. mupirocin 0.02 mg/mg topical ointment (1 source) RNA Synthetase Inhibitor Antibacterial Start: 08-22-2023 End: 08-27-2023 mupirocin (BACTROBAN) 2 % ointment Apply to affected area three times a day for 5 days. 30 g 0 08/22/2023 08/27/2023 Active Comment on above: Apply to affected ar ea three times a day for 5 days. pregabalin 225 mg oral capsule (20 sources) Start: 11-19-2021 End: 08-20-2025 take 1 capsule by mouth twice daily pregabalin (LYRICA) 225 mg capsule Indications: Systemic lupus erythematosus with other organ involvement, unspecified SLE type (HCC) Take 1 capsule by mouth two times a day for 90 days. 180 capsule 05/22/2025 08/20/2025 Active Comment on above: Take 1 capsule by mo [facility] twice daily for 90 days. Take 1 capsule by mo [facility] two times a day for 90 days. Pseudoephedrine (20 sources) alpha-Adrenergic Agonist pseudoephedrine HCl (PSEUDOEPHEDRINE NASAL DECON ORAL) Take by mouth. Active risperiDONE 1 mg oral tablet (1 source) Atypical Antipsychotic Start: 06-25-2014 take 1 mg by mouth at bedtime Risperidone Active 1 MG PO AT BEDTIME June 24, 2014 11:00pm tamsulosin hydrochloride 0.4 mg oral capsule (20 sources) alpha-Adrenergic Tonya Start: 09-24-2024 End: 04-15-2025 take 1 capsule by mouth once daily at bedtime tamsulosin (FLOMAX) 0.4 mg Take 1 capsule by mouth daily at bedtime. 90 capsule 1 04/15/2025 Active Start: 09-22-2021 End: 09-08-2024 take 1 capsule by mouth once daily at bedtime tamsulosin (FLOMAX) 0.4 mg Take 1 capsule by mouth daily at bedtime. 90 capsule 1 03/05/2024 09/08/2024 Discontinued Comment on above: Take 1 capsule by [facility] daily at bedtime. Completed/Discontinued Medications Medication Drug Class(es) Dates Sig (Normalized) Sig (Original) acetaminophen 325 mg oral tablet (2 sources) Start: 02-28-2024 End: 02-28-2024 acetaminophen 650 mg tab(s) (TYLENOL) acetaminophen 325 mg / oxyCODONE hydrochloride 5 mg oral tablet (1 source) Opioid Agonist Start: 10-02-2013 End: 10-02-2013 take 1 tablet by mouth every four hours as needed Oxycodone-Acetamino phen Discontinued 1 - 2 TABLET PO EVERY 4 HOURS NEEDED October 02, 2013 12:00am October 02, 2013 3:45pm acyclovir 0.05 mg/mg topical ointment (7 sources) Herpesvirus Nucleoside Analog DNA Polymerase Inhibitor, Herpes Simplex Virus Nucleoside Analog DNA Polymerase Inhibitor, Herpes Zoster Virus Nucleoside Analog DNA Polymerase Inhibitor Start: 08-13-2022 End: 08-20-2022 acyclovir (ZOVIRAX) 5 % ointment Apply to affected area five times daily for 7 days. 5 g 0 08/13/2022 08/20/2022 Start: 06-09-2022 End: 06-16-2022 acyclovir (ZOVIRAX) 5 % oint ment Apply to affected area five times daily for 7 days. 5 g 0 06/09/2022 06/16/2022 Active Start: 05-28-2022 End: 06-04-2022 acyclovir (ZOVIRAX) 5 % crea Apply to affected area five times daily for 7 days. 5 g 0 05/28/2022 06/04/2022 Active Comment on above: Apply to affected ar ea five times daily for 7 days. alpha lipoic acid (LIPOIC ACID ORAL) (20 sources) End: 04-02-2025 alpha lipoic acid (LIPOIC ACID ORAL) Take by mouth. 04/02/2025 Discontinued (Discontinued by Patient) alpha lipoic aci d (LIPOIC ACID ORAL) Take by mouth. Active alpha lipoic aci d (LIPOIC ACID ORAL) Take by mouth. 0 Active Comment on above: Take by mouth. BARLEY, WHOLE GROUND (20 sources) End: 11-24-2023 BARLEY, WHOLE GROUND 11/24/2023 Discontinued End: 11-24-2023 BARLEY, WHOLE GROUND BARLEY, WHOLE GR OUND Budesonide / formoterol (11 sources) Corticosteroid, beta2-Adrenergic Agonist Start: 09-29-2022 End: 01-11-2023 take 2 puff(s) by mouth twice daily budesonide-formoterol (SYMBICORT) 160-4.5 mcg/actuation inhaler Inhale 2 Puffs as instructed twice daily. Rinse mouth out after use. 1 Each 5 09/29/2022 01/11/2023 Discontinued Start: 09-29-2022 take 2 puff(s) by [facility] twice daily budesonide-formoterol (SYMBICORT) 160-4.5 mcg/actuation inhaler Inhale 2 Puffs as instructed twice daily. Rinse mouth out after use. 1 Each 5 09/29/2022 Active Comment on above: Inhale 2 Puffs as in structed twice daily. Rinse mouth out after use. Calcium Carbonate (2 sources) End: 01-14-2022 calcium carbonate (TUMS E-X SUGAR FREE ORAL) Indications: GERD without esophagitis Take by mouth. 0 01/14/2022 Discontinued Comment on above: Take by mouth. CHLORPHENIRAMINE-DEXTR OMETHORP ORAL (20 sources) End: 11-24-2023 CHLORPHENIRAMINE-DEXTROME CONY ORAL Take by mouth. 11/24/2023 Discontinued End: 11-24-2023 CHLORPHENIRAMINE-DEXTROMETHO RP ORAL Take by mouth. 0 11/24/2023 Discontinued CHLORPHENIRAMINE -DEXTROMETHORP ORAL Take by mouth. 0 Active Comment on above: Take by mouth. clindamycin 300 mg oral capsule (6 sources) Lincosamide Antibacterial Start: 03-11-20 End: 04-20-20 take 1 capsule by mouth three times daily clindamycin (CLEOCIN) 300 mg capsule Take 1 capsule by mouth three times daily. 15 capsule 0 03/11/2022 04/20/2022 Discontinued Comment on above: Take 1 capsule by [facility] three times daily. diclofenac sodium 50 mg delayed release oral tablet (16 sources) Nonsteroidal Anti-inflammatory Drug Start: 02-16-20 End: 04-02-20 take 1 tablet by mouth twice daily at mealtime as needed for pain diclofenac, EC, (VOLTAREN) 50 mg EC tablet Take 1 tablet by mouth twice daily with meals. As needed for arthritis pain 60 tablet 2 02/15/2022 04/02/2022 Discontinued Start: 01-04-2022 [facility] diclofenac, EC, (VOLTAREN) 50 mg EC tablet Take 50 mg by mouth twice daily with meals. 0 01/04/2022 Active Comment on above: Take 50 mg by mouth twice daily with meals. Take 1 tablet by reji twice daily with meals. As needed for arthritis pain docusate sodium 100 mg oral capsule (2 sources) Start: 7 End: 2 take 1 capsule by mouth every twelve hours as needed docusate sodium (COLACE) 100 mg capsule Take 1 capsule by mouth twice daily as needed. 60 capsule 0 06/22/2017 01/15/2022 Discontinued Comment on above: Take 1 capsule by mo [facility] twice daily as needed. famotidine 20 mg oral tablet (20 sources) Histamine-2 Receptor Antagonist Start: 3 End: 4 take 1 tablet by mouth twice daily famotidine (PEPCID) 20 mg tablet Take 1 tablet by mouth twice daily. 180 tablet 3 04/12/2023 02/13/2024 Discontinued Start: 02-14-2022 End: 04-20-2022 famotidine (PEPCID) 20 mg ta blet Start: 08-19-2021 End: 01-15-2022 take 1 tablet by mouth at bedtime as needed famotidine (PEPCID) 20 mg tablet Indications: Persistent dry cough Take 1 tablet by mouth at bedtime as needed. 30 tablet 5 08/19/2021 01/15/2022 Discontinued Comment on above: Take 1 tablet by reji at bedtime as needed. Take 1 tablet by reji twice daily. fish oil/borage/flax/om3,6, 9 1 (OMEGA 3-6-9 ORAL) (20 sources) End: 04-02-2025 fish oil/borage/flax/om3,6,9 1 (OMEGA 3-6-9 ORAL) Take by mouth. 04/02/2025 Discontinued (Discontinued by Patient) fish oil/borage/ flax/om3,6,9 1 (OMEGA 3-6-9 ORAL) Take by mouth. Active fish oil/borage/ flax/om3,6,9 1 (OMEGA 3-6-9 ORAL) Take by mouth. 0 Active Comment on above: Take by mouth. 12 hr guaiFENesin 1200 mg extended release oral tablet (20 sources) Start: 07-02-2024 End: 04-02-2025 take 1 tablet by mouth twice daily guaiFENesin (MUCINEX) 1,200 mg Ta12 Take 1 tablet by mouth two times a day. 42 tablet 11 07/02/2024 04/02/2025 Discontinued (Discontinued by Patient) Start: 02-29-2020 End: 03-01-2020 take 600 mg by mouth twice daily Guaifenesin Discontinued 600 MG PO TWICE A DAY February 28, 2020 11:00pm March 01, 2020 11:03am End: 04-02-2025 guaiFENesin (MUCINEX) 600 mg 12 hr tablet Take 1,200 mg by mouth twice daily as needed for cold/allergy symptoms. 04/02/2025 Discontinued (Discontinued by Patient) Comment on above: Take 1,200 mg by reji th twice daily as needed for cold/allergy symptoms. IRON, FERROUS SULFATE, ORAL (20 sources) End: 04-02-2025 IRON, FERROUS SULFATE, ORAL Take by mouth once daily. 04/02/2025 Discontinued (Discontinued by Patient) IRON, FERROUS MONDRAGON LFATE, ORAL Take by mouth once daily. Active IRON, FERROUS MONDRAGON LFATE, ORAL Take by mouth once daily. 0 Active Comment on above: Take by mouth once d aily. iv contrast (will be provided with radiology test) (2 sources) Start: 2 End: 2 inject 1 dose intravenously once iv contrast (will be provided with radiology test) CT [place] - No IV access, insert saline lock prior to the sedation, infusion, injection for imaging exam. Discontinue saline lock post exam. If Pt. has a central line or IVAD, may access for administration according to line specific nursing protocol. Once exam is complete flush line and de-access according to line specific nursing protocol in the CT contrast administration guidelines link. 1 Each 0 07/12/2022 07/13/2022 Start: 07-12-2022 End: 07-13-2022 inject 1 dose intravenously once iv contrast (will be provided with radiology test) CT [place] - No IV access, insert saline lock prior to the sedation, infusion, injection for imaging exam. Discontinue saline lock post exam. If Pt. has a central line or IVAD, may access for administration according to line specific nursing protocol. Once exam is complete flush line and de-access according to line specific nursing protocol in the CT contrast administration guidelines link. 1 Each 0 07/12/2022 07/13/2022 Active Comment on above: CT [place] - No IV acc ess, insert saline lock prior to the sedation, infusion, injection for imaging exam. Discontinue saline lock post exam. If Pt. has a central line or IVAD, may access for administration according to line specific nursing protocol. Once exam is complete flush line and de-access according to line specific nursing protocol in the CT contrast administration guidelines link. lipase/protease/am ylase (ZENPEP ORAL) (2 sources) End: 01-15-20 take 1 tablet by mouth at mealtime lipase/protease/amyl ase (ZENPEP ORAL) Take by mouth. Take one tablet prior to meals and/or snacks 0 01/14/2022 Discontinued Comment on above: Take by mouth. Take one tablet prior to meals and/or snacks LORazepam 1 mg oral tablet (20 sources) Benzodiazepine Start: 02-28-20 End: 02-28-20 LORazepam 0.5 mg tab(s) (ATIVAN) Start: 06-25-2014 take 1 tablet by reji th twice daily Lorazepam (Ativan) 1 MG tablet Active 1 MG PO TWICE A DAY June 24, 2014 11:00pm End: 01-11-2023 take 1 tablet by mouth every six hours as needed LORazepam 1 mg ORAL tablet Take 1 mg by mouth every 6 hours as needed. 0 01/11/2023 Discontinued Comment on above: Take 1 mg by mouth e very 6 hours as needed. Lysine (20 sources) End: 04-02-2025 LYSINE ORAL Take by mouth. 04/02/2025 Discontinued (Discontinued by Patient) LYSINE ORAL Take by mouth. Active LYSINE ORAL Take by mouth. 0 Active Comment on above: Take by mouth. Magnesium (2 sources) Start: 04-01-20 21 End: 01-16-20 take 1000 mg by mouth once daily at bedtime MAGNESIUM ORAL Indications: Food allergy Take 1,000 mg by mouth once daily. Take at bedtime 0 04/01/2021 01/15/2022 Discontinued Comment on above: Take 1,000 mg by reji th once daily. Take at bedtime 24 hr metFORMIN hydrochloride 500 mg extended release oral tablet (20 sources) Biguanide Start: 06-28-20 24 End: 04-02-20 metFORMIN ER (GLUCOPHAGE XR) 500 mg 24 hr tablet Indications: Severe obesity (BMI >= 40) (HCC) , Prediabetes Take one tablet daily with breakfast for 7 days, then increase to one tablet twice daily with breakfast and dinner. 180 tablet 1 06/28/2024 04/02/2025 Discontinued (Discontinued by Patient) milnacipran hydrochloride 12.5 mg oral tablet (20 sources) Serotonin and Norepinephrine Reuptake Inhibitor Start: 03-22-20 End: 09-08-20 SAVELLA 12.5 mg tab 03/22/2023 09/08/2023 Discontinued 24 hr mirabegron 50 mg extended release oral tablet (2 sources) beta3-Adrenergic Agonist Start: 09-23-20 End: 01-15-20 take 1 tablet by mouth once daily mirabegron (MYRBETRIQ) 50 mg Tb24 Take 1 tablet by mouth once daily. 30 tablet 2 09/23/2021 01/14/2022 Discontinued Comment on above: Take 1 tablet by reji once daily. nystatin 100 unt/mg topical powder (20 sources) Polyene Antifungal Start: 08-09-20 End: 11-24-19 nystatin (NYSTOP) powder Apply 1 application to affected area four times daily. 60 g 2 08/09/2023 11/24/2023 Discontinued Start: 08-10-2022 End: 01-11-2023 nystatin (NYSTOP) powder Maurice ly 1 application to affected area four times daily. 60 g 2 08/10/2022 01/11/2023 Discontinued Comment on above: Apply 1 application to affected area four times daily. nystatin 100 unt/mg / triamcinolone acetonide 0.001 mg/mg topical ointment (20 sources) Polyene Antifungal, Corticosteroid Start: End: nystatin-triamcinol one (MYCOLOG) ointment Apply to affected area as directed. 30 g 1 08/10/2022 10/02/2022 Comment on above: Apply to affected ar ea as directed. nystatin 1 billion unit powd (2 sources) Start: End: nystatin 1 billion unit powd Apply powder to genital area at bedtime 1 Each 2 08/14/2021 01/15/2022 Discontinued Comment on above: Apply powder to дмитрий ginna area at bedtime pantoprazole 40 mg delayed release oral tablet (2 sources) Proton Pump Inhibitor Start: End: take 1 tablet by mouth once daily before breakfast pantoprazole DR (PROTONIX) 40 mg tablet Indications: GERD without esophagitis Take 1 tablet by mouth daily before breakfast. Take on empty stomach, 1/2 hr before meal. 30 tablet 0 09/24/2021 01/14/2022 Discontinued Comment on above: Take 1 tablet by reji th daily before breakfast. Take on empty stomach, 1/2 hr before meal. perflutren lipid microspheres 1.3 mL in NaCl (PF) 0.9% 10 mL injection (DEFINITY) (20 sources) Start: End: perflutren lipid microspheres 1.3 mL in NaCl (PF) 0.9% 10 mL injection (DEFINITY) predniSONE 10 mg oral tablet (20 sources) Start: End: take 1 tablet by mouth twice daily predniSONE (DELTASONE) 10 mg tablet Take 1 tablet by mouth two times a day. 60 tablet 08/28/2024 02/11/2025 Discontinued Start: 01-24-2023 End: 05-18-2023 take 1 tablet by mouth twice daily predniSONE (DELTASONE) 5 mg tablet Take 1 tablet by mouth twice daily. 60 tablet 01/24/2023 05/18/2023 Discontinued (Discontinued by another Health Care Provider) Start: 07-13-2022 End: 09-03-2022 take 1 tablet by mouth twice daily predniSONE (DELTASONE) 5 mg tablet Take 1 tablet by mouth twice daily. 60 tablet 0 07/13/2022 09/03/2022 Discontinued (Other) Comment on above: Take 1 tablet by reji th twice daily. red beet root-sour richardson ext 250-0.5 mg chew (20 sources) End: 11-24-2023 red beet root-sour richardson ext 250-0.5 mg chew Take by mouth. 11/24/2023 Discontinued End: 11-24-2023 red beet root-sour richardson ex t 250-0.5 mg chew Take by mouth. 0 11/24/2023 Discontinued red beet root-so ur richardson ext 250-0.5 mg chew Take by mouth. 0 Active Comment on above: Take by mouth. 0.25 mg, 0.5 mg dose 1.5 ml semaglutide 1.34 mg/ml pen injector (20 sources) Start: 07-26-20 End: 10-24-19 semaglutide (OZEMPIC) 0.25 mg or 0.5 mg(2 mg/1.5 mL) pen Inject 0.25 mg subcutaneously one time a week. 1 mL 2 07/26/2022 10/24/2022 Comment on above: Inject 0.25 mg subcu taneously one time a week. 125 ml sodium chloride 9 mg/ml prefilled syringe (20 sources) Start: 08-31-20 End: 11-30-19 sodium chloride 0.9 % (flush) 10 mL (BD POSIFLUSH) trospium chloride 20 mg oral tablet (2 sources) Cholinergic Muscarinic Antagonist Start: 08-24-20 End: 01-16-20 take 1 tablet by mouth twice daily trospium (SANCTURA) 20 mg tablet Indications: OAB (overactive bladder) Take 1 tablet by mouth twice daily. 60 tablet 3 08/24/2021 01/15/2022 Discontinued Comment on above: Take 1 tablet by reji twice daily. Zinc (20 sources) End: 04-02-20 ZINC ORAL Take by mouth. 04/02/2025 Discontinued (Discontinued by Patient) ZINC ORAL Take b y mouth. Active ZINC ORAL Take b y mouth. 0 Active Comment on above: Take by mouth. zolpidem tartrate 10 mg oral tablet (20 sources) gamma-Aminobutyric Acid-ergic Agonist Start: 01-18-2022 End: 01-11-2023 zolpidem (AMBIEN) 10 mg Take by mouth at bedtime as needed. 0 01/18/2022 01/11/2023 Discontinued Start: 01-18-2022 zolpidem (AMBI EN) 10 mg Start: 03-01-2020 take 2 mg by mouth a t bedtime as needed Zolpidem Active 2 MG PO AT BEDTIME NEEDED February 29, 2020 11:00pm Comment on above: Take by mouth at bed time as needed. Problems Active Problems Problem Classification Problem Date Documented Date Episodic/Chronic Anxiety disorders (20 sources) Anxiety; Translations: [Anxiety disorder, unspecified] Onset: 03-10-2011 06-21-2017 Chronic Deficiency and other anemia (2 sources) Anemia, unspecified; Translations: [Anemia, unspecified type] Onset: 06-24-2025 Episodic Diseases of mouth; excluding dental (2 sources) Oral lesion; Translations: [Unspecified lesions of oral mucosa] Episodic Disorders of lipid metabolism (20 sources) Hyperlipidemia; Translations: [Hyperlipidemia, unspecified] Onset: 06-13-2017 06-21-2017 Chronic Diverticulosis and diverticulitis (20 sources) Diverticulosis of colon; Translations: [Diverticulosis of large intestine without perforation or abscess without bleeding] Onset: 06-26-2008 06-26-2008 Chronic Esophageal disorders (20 sources) Gastroesophageal reflux disease without esophagitis; Translations: [Gastro-esophageal reflux disease without esophagitis] Onset: 04-16-2021 04-16-2021 Chronic Essential hypertension (20 sources) Essential hypertension; Translations: [Essential (primary) hypertension] Onset: 06-23-2006 Chronic Gout and other crystal arthropathies (1 source) 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; Translations: [Chronic gout due to renal impairment, left hand, without tophus (tophi)] Chronic Hyperplasia of prostate (20 sources) Benign prostatic hypertrophy with outflow obstruction; Translations: [Benign prostatic hyperplasia with lower urinary tract symptoms] Onset: 10-05-2021 10-05-2021 Chronic Hypertension with complications and secondary hypertension (1 source) Hypertensive urgency ; Translations: [Hypertensive urgency] Chronic Miscellaneous mental health disorders (2 sources) Chronic insomnia; Translations: [Psychophysiologic insomnia] Onset: 03-05-2025 03-05-2025 Chronic Mood disorders (20 sources) Recurrent major depression; Translations: [Major depressive disorder, recurrent, unspecified] Onset: 06-13-2017 07-20-2021 Chronic Multiple myeloma (5 sources) Multiple myeloma; Translations: [Multiple myeloma not having achieved remission] Onset: 07-05-2022 Chronic Neoplasms of unspecified nature or uncertain behavior (20 sources) Immunosecretory disorder; Translations: [Monoclonal gammopathy] Onset: 03-27-2008 03-27-2008 Chronic Osteoarthritis (20 sources) Primary osteoarthritis, left shoulder; Translations: [Arthritis of shoulder region joint] Onset: 08-03-2012 08-03-2012 Chronic Other acquired deformities (2 sources) Acquired deformity of clavicle; Translations: [Other specified acquired deformities of musculoskeletal system] 02-13-2024 Episodic Other aftercare (10 sources) Patient encounter status; Translations: [Encounter for therapeutic drug level monitoring] Episodic Other aftercare (2 sources) Drug therapy finding; Translations: [Other fci (current) drug therapy] 04-03-2024 Episodic Other aftercare (1 source) Marijuana user; Translations: [Other fci (current) drug therapy] 08-07-2024 Episodic Other aftercare (1 source) Encounter for therapeutic drug level monitoring; Translations: [Medication monitoring encounter] Onset: 07-11-2025 Episodic Other and ill-defined heart disease (20 sources) Diastolic dysfunction; Translations: [Other ill-defined heart diseases] Onset: 01-11-2023 Chronic Other and ill-defined heart disease (1 source) Other ill-defined heart diseases; Translations: [Grade I diastolic dysfunction] Onset: 01-11-2023 Chronic Other congenital anomalies (20 sources) Congenital spondylolisthesis; Translations: [Congenital spondylolisthesis] Onset: 12-10-2003 01-27-2004 Chronic Other connective tissue disease (20 sources) History of operative procedure on shoulder; Translations: [Presence of unspecified artificial shoulder joint] Onset: 04-09-2013 04-09-2013 Chronic Other connective tissue disease (2 sources) Diastasis recti; Translations: [Separation of muscle (nontraumatic), other site] Episodic Other connective tissue disease (1 source) Tendinitis of elbow or forearm; Translations: [Other enthesopathies, not elsewhere classified] Episodic Other connective tissue disease (2 sources) Bilateral dysfunction of posterior tibial tendon of feet; Translations: [Posterior tibial tendinitis, right leg] Episodic Other connective tissue disease (2 sources) Pain of bilateral hands; Translations: [Pain in right hand] 07-20-2023 Episodic Other connective tissue disease (1 source) Other specified soft tissue disorders; Translations: [Leg swelling] Onset: 06-26-2025 Episodic Other fractures (1 source) Closed fracture of multiple left and right ribs; Translations: [Multiple fractures of ribs, bilateral, initial encounter for closed fracture] 02-11-2025 Episodic Other hematologic conditions (2 sources) Serum/plasma protein finding; Translations: [Abnormality of plasma protein, unspecified] 03-06-2024 Episodic Other lower respiratory disease (3 sources) Interstitial lung disease; Translations: [Interstitial pulmonary disease, unspecified] Chronic Other lower respiratory disease (3 sources) Cough; Translations: [Cough, unspecified type] Episodic Other lower respiratory disease (10 sources) Dyspnea; Translations: [Shortness of breath] Episodic Other lower respiratory disease (2 sources) Dyspnea on exertion; Translations: [Other forms of dyspnea] Episodic Other lower respiratory disease (9 sources) Other forms of dyspnea; Translations: [Other respiratory abnormalities] Episodic Other lower respiratory disease (2 sources) Chronic cough; Translations: [Chronic cough] 07-06-2023 Episodic Other nervous system disorders (20 sources) Ulnar neuritis; Translations: [Lesion of ulnar nerve, unspecified upper limb] Onset: 10-20-2012 10-20-2012 Chronic Other nervous system disorders (9 sources) Small fiber neuropathy; Translations: [Polyneuropathy, unspecified] Chronic Other nervous system disorders (8 sources) Bilateral carpal tunnel syndrome; Translations: [Carpal tunnel syndrome, bilateral upper limbs] 08-02-2023 Chronic Other nervous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 Comment on above: Order Comment: Speci men Type: BLOOD SPECIMENOrdering Facility: [facility] Address: [address] [place] [address] Performed By: #### 5 7021-8 ####[facility] LABIA [id number] [address], [place] [address] [place] Immature granulocytes (Bld) [#/Vol] 0.03 10*3/uL Normal <0.10 [facility] Comment on above: Order Comment: Speci men Type: BLOOD SPECIMENOrdering Facility: [facility] Address: [address] [place] [address] Performed By: #### 5 7021-8 ####[facility] LABIA [id number] [place] [address] [place] Immature granulocytes/100 WBC (Bld) 0.5 % Normal [facility] Comment on above: Order Comment: Speci men Type: BLOOD SPECIMENOrdering Facility: [facility] Address: [address] [place] [address] Performed By: #### 5 7021-8 ####[facility] LABCLIA [id number] [place] [address] [place] Lymphocytes (Bld) [#/Vol] 2.43 10*3/uL Normal 1.00-4.00 [facility] Comment on above: Order Comment: Speci men Type: BLOOD SPECIMENOrdering Facility: [facility] Address: [address] [place] [address] Performed By: #### 5 7021-8 ####[facility] LABCLIA [id number] [place] [address] [place] Lymphocytes/100 WBC (Bld) 37.4 % Normal [facility] Comment on above: Order Comment: Speci men Type: BLOOD SPECIMENOrdering Facility: [facility] Address: [address] [place] [address] Performed By: #### 5 7021-8 ####[facility] LABIA [id number] [place] [address] [place] MCH (RBC) [Entitic mass] 30.0 pg Normal 26.0-34.0 [facility] Comment on above: Order Comment: Speci men Type: BLOOD SPECIMENOrdering Facility: [facility] Address: [address] [place] [address] Performed By: #### 5 7021-8 ####[facility] LABCLIA [id number] [place] [address] [place] MCHC (RBC) [Mass/Vol] 32.1 g/dL Normal 30.5-36.0 [facility] Comment on above: Order Comment: Speci men Type: BLOOD SPECIMENOrdering Facility: [facility] Address: [address] [place] [address] Performed By: #### 5 7021-8 ####[facility] LABCLIA [id number] [place] [address] [place] MCV (RBC) [Entitic vol] 93.5 fL Normal 80.0-100.0 [facility] Comment on above: Order Comment: Speci men Type: BLOOD SPECIMENOrdering Facility: [facility] Address: [address] [place] [address] Performed By: #### 5 7021-8 ####[facility] LABCLIA [id number] [place] [address] [place] Monocytes (Bld) [#/Vol] 0.59 10*3/uL Normal <0.87 [facility] Comment on above: Order Comment: Speci men Type: BLOOD SPECIMENOrdering Facility: [facility] Address: [address] [place] [address] Performed By: #### 5 7021-8 ####[facility] LABCLIA [id number] [place] [address] [place] Monocytes/100 WBC (Bld) 9.1 % Normal [facility] Comment on above: Order Comment: Speci men Type: BLOOD SPECIMENOrdering Facility: [facility] Address: [address] [place] [address] Performed By: #### 5 7021-8 ####[facility] LABCLIA [id number] [place] [address] [place] Neutrophils (Bld) [#/Vol] 3.15 10*3/uL Normal 1.45-7.50 [facility] Comment on above: Order Comment: Speci men Type: BLOOD SPECIMENOrdering Facility: [facility] Address: [address] [place] [address] Performed By: #### 5 7021-8 ####[facility] LABCLIA [id number] [place] [address] [place] Neutrophils/100 WBC (Bld) 48.5 % Normal [facility] Comment on above: Order Comment: Speci men Type: BLOOD SPECIMENOrdering Facility: [facility] Address: [address] [place] [address] Performed By: #### 5 7021-8 ####[facility] LABCLIA [id number] [address], [facility] [place] Nucleated RBC (Bld) [#/Vol] 10*3/uL Normal <0.01 [facility] Comment on above: Order Comment: Speci men Type: BLOOD SPECIMENOrdering Facility: [facility] Address: [address] [place] [address] Performed By: #### 5 7021-8 ####[facility] LABCLIA [id number] [address], [place] [address] [place] Nucleated RBC/100 WBC (Bld) [Ratio] 0.0 /100 WBC Normal [facility] Comment on above: Order Comment: Speci men Type: BLOOD SPECIMENOrdering Facility: [facility] Address: [address] [place] [address] Performed By: #### 5 7021-8 ####[facility] LABIA [id number] [address], [place] [address] [place] Platelet mean volume (Bld) [Entitic vol] 8.8 fL Low 9.0-12.7 [facility] Comment on above: Order Comment: Speci men Type: BLOOD SPECIMENOrdering Facility: [facility] Address: [address] [place] [address] Performed By: #### 5 7021-8 ####[facility] LABCLIA [id number] [address], [facility] [place] Platelets (Bld) [#/Vol] 281 10*3/uL Normal 150-400 [facility] Comment on above: Order Comment: Speci men Type: BLOOD SPECIMENOrdering Facility: [facility] Address: [address] [place] [address] Performed By: #### 5 7021-8 ####[facility] LABCLIA [id number] [place] [address] [place] RBC (Bld) [#/Vol] 4.33 10*6/uL Normal 4.20-6.00 [facility] Comment on above: Order Comment: Speci men Type: BLOOD SPECIMENOrdering Facility: [facility] Address: [address] [place] [address] Performed By: #### 5 7021-8 ####[facility] LABIA [id number] [address] [place] WBC (Bld) [#/Vol] 6.49 10*3/uL Normal 3.70-11.00 [facility] Comment on above: Order Comment: Speci men Type: BLOOD SPECIMENOrdering Facility: [facility] Address: [address] [place] [address] Performed By: #### 5 7021-8 ####[facility] [id number] [address] [place] CRP SerPl-mCncon 03-02-2025 CRP [Mass/Vol] 0.7 mg/dL Normal <0.9 [facility] Comment on above: Order Comment: Speci men Type: BLOOD SPECIMENOrdering Facility: [facility] Address: [address] [place] [address] Performed By: #### 4 485-9, 4498-2, 39157-6, 1988-02 ####[facility] LABIA [id number] [place] [address] [place] Comprehensive metabolic 2000 panelon 03-02-2025 Albumin [Mass/Vol] 4.3 g/dL 3.9 - 4.9 g/dL [facility] ALP [Catalytic activity/Vol] 78 U/L 38 - 113 U/L [facility] ALT [Catalytic activity/Vol] 12 U/L 10 - 54 U/L [facility] Anion gap [Moles/Vol] 12 mmol/L 8 - 15 mmol/L [facility] AST [Catalytic activity/Vol] 18 U/L 14 - 40 U/L [facility] Bilirubin [Mass/Vol] 0.3 mg/dL 0.2 - 1.3 mg/dL [facility] Calcium [Mass/Vol] 9.8 mg/dL 8.5 - 10. 2 mg/dL [facility] Chloride [Moles/Vol] 102 mmol/L 98 - 107 mmol/L [facility] CO2 [Moles/Vol] 23 mmol/L 22 - 30 mmol/L [facility] Creatinine [Mass/Vol] 0.76 mg/dL 0.73 - 1.22 mg/dL [facility] GFR/1.73 sq M.predicted among non-blacks MDRD (S/P/Bld) [Vol rate/Area] 93 mL/min/{1.73_m2} - PINF [facility] Comment on above: Estimated Glomerular Filtration Rate (eGFR) is calculated using the 2020 CKD-EPI creatinine equation. This equation utilizes serum creatinine, sex, and age as parameters. The creatinine assay has traceable calibration to isotope dilution-mass spectrometry. Refer to KDIGO guidelines for clinical interpretation. In patients with unstable renal function, e.g. those with acute kidney injury, the eGFR may not accurately reflect actual GFR. Glucose [Mass/Vol] 119 mg/dL High 74 - 99 mg/dL [facility] Comment on above: The [place] Di[employer] Association (ADA) provides guidance for cutoff values for fasting glucose and random glucose. The ADA defines fasting as no caloric intake for at least 8 hours. Fasting plasma glucose results between 100 to 125 mg/dL indicate increased risk for diabetes (prediabetes). Fasting plasma glucose results greater than or equal to 126 mg/dL meet the criteria for diagnosis of diabetes. In the absence of unequivocal hyperglycemia, results should be confirmed by repeat testing. In a patient with classic symptoms of hyperglycemia or hyperglycemic crisis, random plasma glucose results greater than or equal to 200 mg/dL meet the criteria for diagnosis of diabetes. Reference: Standards of Medical Care in Diabetes 2016, [place] [employer]. Diabetes Care. 2016.39(Suppl 1). Interpretation and review of laboratory results Abnormal [facility] Potassium [Moles/Vol] 4.7 mmol/L 3.7 - 5.1 mmol/L [facility] Protein [Mass/Vol] 7.1 g/dL 6.3 - 8.0 g/dL [facility] Sodium [Moles/Vol] 137 mmol/L 136 - 144 mmol/L [facility] Urea nitrogen [Mass/Vol] 18 mg/dL 9 - 24 mg/dL [facility] Albumin [Mass/Vol] 4.3 g/dL Normal 3.9-4.9 [facility] Comment on above: Order Comment: Speci men Type: BLOOD SPECIMENOrdering Facility: [facility] Address: [address] [place] [address] Performed By: #### 4 485-9, 4498-2, , 1988-02 ####[facility] LABCLIA [id number] [address] [address] [place] ALP [Catalytic activity/Vol] 78 U/L Normal 38-113 [facility] Comment on above: Order Comment: Speci men Type: BLOOD SPECIMENOrdering Facility: [facility] Address: [address] [place] [address] Performed By: #### 4 485-9, 4498-2, , 1988-02 ####[facility] LABIA [id number] [place] [address] [place] ALT [Catalytic activity/Vol] 12 U/L Normal 10-54 [facility] Comment on above: Order Comment: Speci men Type: BLOOD SPECIMENOrdering Facility: [facility] Address: [address] [place] [address] Performed By: #### 4 485-9, 4498-2, , 1988-02 ####[facility] LABCLIA [id number] [address] [address] [place] Anion gap [Moles/Vol] 12 mmol/L Normal 8-15 [facility] Comment on above: Order Comment: Speci men Type: BLOOD SPECIMENOrdering Facility: [facility] Address: [address] [place] [address] Performed By: #### 4 485-9, 4498-2, , 1988-02 ####[facility] LABCLIA [id number] [place] [id number] [place] AST [Catalytic activity/Vol] 18 U/L Normal 14-40 [facility] Comment on above: Order Comment: Speci men Type: BLOOD SPECIMENOrdering Facility: [facility] Address: [address] [place] [address] Performed By: #### 4 485-9, 4498-2, , 1988-02 ####[facility] LABCLIA [id number] [place] [address] [place] Bilirubin [Mass/Vol] 0.3 mg/dL Normal 0.2-1.3 [facility] Comment on above: Order Comment: Speci men Type: BLOOD SPECIMENOrdering Facility: [facility] Address: [address] [place] [address] Performed By: #### 4 485-9, 4498-2, , 1988-02 ####[facility] LABCLIA [id number] [place] [address] [place] Calcium [Mass/Vol] 9.8 mg/dL Normal 8.5-10.2 [facility] Comment on above: Order Comment: Speci men Type: BLOOD SPECIMENOrdering Facility: [facility] Address: [address] [place] [address] Performed By: #### 4 485-9, 4498-2, , 1988-02 ####[facility] LABCLIA [id number] [place] [address] [place] Chloride [Moles/Vol] 102 mmol/L Normal 98-107 [facility] Comment on above: Order Comment: Speci men Type: BLOOD SPECIMENOrdering Facility: [facility] Address: [address] [place] [address] Performed By: #### 4 485-9, 4498-2, , 1988-02 ####[facility] LABCLIA [id number] [address] [address] [place] CO2 [Moles/Vol] 23 mmol/L Normal 22-30 [facility] Comment on above: Order Comment: Speci sushil Type: BLOOD SPECIMENOrdering Facility: [facility] Address: [address] [place] [address] Performed By: #### 4 485-9, 4498-2, , 1988-02 ####[facility] LABCLIA [id number] [place] [address] [place] Creatinine [Mass/Vol] 0.76 mg/dL Normal 0.73-1.22 [facility] Comment on above: Order Comment: Speci men Type: BLOOD SPECIMENOrdering Facility: [facility] Address: [address] [place] [address] Performed By: #### 4 485-9, 4498-2, , 1988-02 ####[facility] LABIA [id number] [place] [address] [place] Creatinine and Glomerular filtration rate.predicted panel (S/P/Bld) 93 mL/min/1.73m??? Normal >=60 [facility] Comment on above: Order Comment: Juani ling Type: BLOOD SPECIMENOrdering Facility: [facility] Address: [address] [place] [address] Result Comment: Hannah mated Glomerular Filtration Rate (eGFR) is calculated using the 2020 CKD-EPI creatinine equation. This equation utilizes serum creatinine, sex, and age as parameters. The creatinine assay has traceable calibration to isotope dilution-mass spectrometry. Refer to KDIGO guidelines for clinical interpretation. In patients with unstable renal function, e.g. those with acute kidney injury, the eGFR may not accurately reflect actual GFR. Performed By: #### 4 485-9, 4498-2, , 1988-02 ####[facility] LABCLIA [id number] [facility] [address] [address] [place] Glucose [Mass/Vol] 119 mg/dL High 74-99 [facility] Comment on above: Order Comment: Speci men Type: BLOOD SPECIMENOrdering Facility: [facility] Address: [address] [place] [address] Result Comment: The [place] Diabetes Association (ADA) provides guidance for cutoff values for fasting glucose and random glucose. The ADA defines fasting as no caloric intake for at least 8 hours. Fasting plasma glucose results between 100 to 125 mg/dL indicate increased risk for diabetes (prediabetes). Fasting plasma glucose results greater than or equal to 126 mg/dL meet the criteria for diagnosis of diabetes. In the absence of unequivocal hyperglycemia, results should be confirmed by repeat testing. In a patient with classic symptoms of hyperglycemia or hyperglycemic crisis, random plasma glucose results greater than or equal to 200 mg/dL meet the criteria for diagnosis of diabetes. Reference: Standards of Medical Care in Diabetes 2016, [place] [employer] Association. Diabetes Care. 2016.39(Suppl 1). Performed By: #### 4 485-9, 4498-2, , 1988-02 ####[facility] LABCLIA [id number] [place] [address] [place] Potassium [Moles/Vol] 4.7 mmol/L Normal 3.7-5.1 [facility] Comment on above: Order Comment: Speci men Type: BLOOD SPECIMENOrdering Facility: [facility] Address: [address] [place] [address] Performed By: #### 4 485-9, 4498-2, 1988-02 ####[facility] LABCLIA [id number] [place] [address] [place] Protein [Mass/Vol] 7.1 g/dL Normal 6.3-8.0 [facility] Comment on above: Order Comment: Speci men Type: BLOOD SPECIMENOrdering Facility: [facility] Address: [address] [place] [address] Performed By: #### 4 485-9, 4498-2, , 1988-02 ####[facility] LABCLIA [id number] [address] [address] [place] Sodium [Moles/Vol] 137 mmol/L Normal 136-144 [facility] Comment on above: Order Comment: Speci men Type: BLOOD SPECIMENOrdering Facility: [facility] Address: [address] [place] [address] Performed By: #### 4 485-9, 4498-2, 61650-0, 1988-02 ####[facility] LABCLIA [id number] [place] [address] [place] Urea nitrogen [Mass/Vol] 18 mg/dL Normal 9-24 [facility] Comment on above: Order Comment: Speci men Type: BLOOD SPECIMENOrdering Facility: [facility] Address: [address] [place] [address] Performed By: #### 4 485-9, 4498-2, , 1988-02 ####[facility] LABCLIA [id number] [place] [address] [place] DNA double strand Ab IA Qn ( S)on 03-02-2025 DNA ANTIBODY 413 IU/mL High <=200 [facility] Comment on above: Order Comment: Speci men Type: BLOOD SPECIMENOrdering Facility: [facility] Address: [address] [place] [address] Result Comment: Nega tive: <200 IU/mL Equivocal: 201-300 IU/mL Moderate Positive: 301-800 IU/mL Strong Positive: >801 IU/mL Performed By: #### 3 2677-7, 6457-6 ####[facility] LABCLIA [id number] [place] [address] [place] DNA ANTIBODY QUALITATIVE INTERPRETATION Positive Abnormal Negative [facility] Comment on above: Order Comment: Speci men Type: BLOOD SPECIMENOrdering Facility: [facility] Address: [address] [place] [address] Performed By: #### 3 2677-7, 6457-6 ####[facility] LABCLIA [id number] [place] [address] [place] IMMUNOFIXATION SCREEN, SERUM on 03-02-2025 INTERPRETATION (MPA) Atypical restricted bands are present in the IgG and lambda regions. Consistent with IgG lambda monoclonal gammopathy. Normal [facility] Comment on above: Order Comment: Speci men Type: BLOOD SPECIMENOrdering Facility: [facility] Address: [address] [place] [address] Performed By: #### I FESC ####[facility] LABCLIA [id number] [address] [place] [address] [place] MPA RESULT M protein is present. Abnormal No M protein is identified. [facility] Comment on above: Order Comment: Speci men Type: BLOOD SPECIMENOrdering Facility: [facility] Address: [address] [place] [address] Performed By: #### I FES ####[facility] LABCLIA [id number] [address], [address] [facility] STAFF REVIEW (MPA) Reviewed by Layo kwok MD Normal [facility] Comment on above: Order Comment: Speci men Type: BLOOD SPECIMENOrdering Facility: [facility] Address: [address] [place] [address] Performed By: #### I FESC ####[facility] LABCLIA [id number] [address] [place] [address] [place] IMMUNOGLOBULINS,IGG,IGA,IGMo n 03-02-2025 IgA [Mass/Vol] 157 mg/dL Normal 70-400 [facility] Comment on above: Order Comment: Speci men Type: BLOOD SPECIMENOrdering Facility: [facility] Address: [address] [place] [address] Performed By: #### S ERIMM ####[facility] LABCLIA [id number] [address] [place] [address] [place] IgG [Mass/Vol] 1063 mg/dL Normal 700-1600 [facility] Comment on above: Order Comment: Speci men Type: BLOOD SPECIMENOrdering Facility: [facility] Address: [address] [place] [address] Performed By: #### S ERIMM ####[facility] LABCLIA [id number] [place] [address] [place] IgM [Mass/Vol] 47 mg/dL Normal 40-230 [facility] Comment on above: Order Comment: Speci men Type: BLOOD SPECIMENOrdering Facility: [facility] Address: [address] [place] [address] Performed By: #### S ERIMM ####[facility] LABIA [id number] [place] [address] [place] KAPPA/VO,FREE,SERon 2024 Immunoglobulin light chains.kappa.free (S) [Mass/Vol] 18.5 mg/L Normal 3.3-19.4 [facility] Comment on above: Order Comment: Speci men Type: BLOOD SPECIMENOrdering Facility: [facility] Address: [address] [place] [address] Result Comment: Rare ly, increased serum free light chains levels may not be detected or accurately quantified due to prozone phenomenon or in high viscosity samples using this immunoturbidimetric assay. Correlation with other laboratory results and clinical findings is recommended. The [place] Free Light Chain was performed using the Binding Site Optilite immunoturbidimetric method. Result obtained with different assay methods or kits cannot be used interchangeably. Performed By: #### K LFRS ####[facility] LABIA [id number] [place] [address] [place] Immunoglobulin light chains.kappa/Immuno globulin light chains.lambda (S) [Mass ratio] 0.57 Normal 0.26-1.65 [facility] Comment on above: Order Comment: Speci men Type: BLOOD SPECIMENOrdering Facility: [facility] Address: [address] [place] [address] Performed By: #### K LFRS ####[facility] LABCLIA [id number] [address] [place] Immunoglobulin light chains.lambda.free [Mass/Vol] 32.2 mg/L High 5.7-26.3 [facility] Comment on above: Order Comment: Speci men Type: BLOOD SPECIMENOrdering Facility: [facility] Address: [address] [place] [address] Result Comment: Rare ly, increased serum free light chains levels may not be detected or accurately quantified due to prozone phenomenon or in high viscosity samples using this immunoturbidimetric assay. Correlation with other laboratory results and clinical findings is recommended. The Lambda Free Light Chain was performed using the Binding Site Optilite immunoturbidimetric method. Result obtained with different assay methods or kits cannot be used interchangeably. Performed By: #### K LFRS ####[facility] LABCLIA [id number] [place] [address] [place] MONOCLONAL PROT UR W/INTERPo n 03-02-2025 STAFF REVIEW (UMPA) Reviewed by Layo kwok MD Normal [facility] Comment on above: Order Comment: Speci men Type: URINE SPECIMENOrdering Facility: [facility] Address: [address] [place] [address] Performed By: #### U RMPA ####[facility] LABCLIA [id number] [address] [place] UMPA RESULT No M protein is identified. Normal No M protein is identified. [facility] Comment on above: Order Comment: Speci men Type: URINE SPECIMENOrdering Facility: [facility] Address: [address] [place] [address] Performed By: #### U RMPA ####[facility] LABIA [id number] [address] [place] No Panel Informationon 03-02 Interpretation and review of laboratory results Normal [facility] Urinalysis complete panel (U )on 03-02-2025 Bacteria LM.HPF (Urine sed) [#/Area] Negative Negative /HPF [facility] Bilirubin Ql (U) Negative Negative [facility] Clarity (Unsp spec) Clear Clear [facility] Color (U) Yellow Yellow [facility] Epithelial cells LM.HPF (Urine sed) [#/Area] None Seen /HPF [facility] Glucose Test strip (U) [Mass/Vol] Negative Negative [facility] Hemoglobin Ql (U) Negative Negative [facility] Hyaline casts (Urine sed) [#/Area] 0 /[LPF] 0 /LPF [facility] Ketones Ql (U) Negative Negative [facility] Leukocyte esterase Test strip Ql (U) Negative Negative [facility] Nitrite Ql (U) Negative Negative [facility] pH (U) 5.5 [pH] NINF - 8.5 [facility] Protein (U) [Mass/Vol] Negative Negative [facility] RBC LM.HPF (Urine sed) [#/Area] 0-2 /HPF 0-2 /HPF [facility] Specific gravity (U) [Rel density] 1.016 1.005 - 1.030 [facility] Urobilinogen Ql (U) 0.2 EU/dL 0.2-1.0 EU/dL [facility] WBC LM.HPF (Urine sed) [#/Area] 0-5 /HPF 0-5 /HPF [facility] This test was tonia seymour and its performance characteristics determined by [facility]'s [facility] [place] (RT-PLMI). It has not been cleared or approved by the FDA. -[facility] is regulated under CLIA as qualified to perform high-complexity testing. This test is used for clinical purposes. It should not be regarded as investigational or for research. [facility] Bacteria LM.HPF (Urine sed) [#/Area] Negative Normal Negative [facility] Comment on above: Order Comment: Speci men Type: URINE SPECIMENOrdering Facility: [facility] Address: [address] [place] [address] Performed By: #### 2 4356-8 ####[facility] LABCLIA [id number] [place] [address] [place] Bilirubin Ql (U) Negative Normal Negative [facility] Comment on above: Order Comment: Speci men Type: URINE SPECIMENOrdering Facility: [facility] Address: [address] [place] [address] Performed By: #### 2 4356-8 ####[facility] LABCLIA [id number] [place] [address] [place] Clarity (Unsp spec) Clear Normal Clear [facility] Comment on above: Order Comment: Speci men Type: URINE SPECIMENOrdering Facility: [facility] Address: [address] [place] [address] Performed By: #### 2 4356-8 ####[facility] LABCLIA [id number] [place] [address] [place] Color (U) Yellow Normal Yellow [facility] Comment on above: Order Comment: Speci men Type: URINE SPECIMENOrdering Facility: [facility] Address: [address] [place] [address] Performed By: #### 2 4356-8 ####[facility] LABIA [id number] [place] [address] [place] Epithelial cells LM.HPF (Urine sed) [#/Area] None Seen Normal [facility] Comment on above: Order Comment: Speci men Type: URINE SPECIMENOrdering Facility: [facility] Address: [address] [place] [address] Performed By: #### 2 4356-8 ####[facility] LABCLIA [id number] [place] [address] [place] Glucose Test strip (U) [Mass/Vol] Negative Normal Negative [facility] Comment on above: Order Comment: Speci men Type: URINE SPECIMENOrdering Facility: [facility] Address: [address] [place] [address] Performed By: #### 2 4356-8 ####[facility] LABCLIA [id number] [place] [address] [place] Hemoglobin Ql (U) Negative Normal Negative [facility] Comment on above: Order Comment: Speci men Type: URINE SPECIMENOrdering Facility: [facility] Address: [address] [place] [address] Performed By: #### 2 4356-8 ####[facility] LABCLIA [id number] [facility] [address] [place] [address] [place] Hyaline casts (Urine sed) [#/Area] 0 /[LPF] Normal 0 /LPF [facility] Comment on above: Order Comment: Speci men Type: URINE SPECIMENOrdering Facility: [facility] Address: [address] [place] [address] Performed By: #### 2 4356-8 ####[facility] LABCLIA [id number] [address] [place] [address] [place] Ketones Ql (U) Negative Normal Negative [facility] Comment on above: Order Comment: Speci men Type: URINE SPECIMENOrdering Facility: [facility] Address: [address] [place] [address] Performed By: #### 2 4356-8 ####[facility] LABCLIA [id number] [address] [place] [address] [place] Leukocyte esterase Test strip Ql (U) Negative Normal Negative [facility] Comment on above: Order Comment: Speci men Type: URINE SPECIMENOrdering Facility: [facility] Address: [address] [place] [address] Performed By: #### 2 4356-8 ####[facility] LABCLIA [id number] [facility] [address] [place] [address] [place] Nitrite Ql (U) Negative Normal Negative [facility] Comment on above: Order Comment: Speci men Type: URINE SPECIMENOrdering Facility: [facility] Address: [address] [place] [address] Performed By: #### 2 4356-8 ####[facility] LABCLIA [id number] [place] [address] [place] pH (U) 5.5 [pH] Normal <8.5 [facility] Comment on above: Order Comment: Speci men Type: URINE SPECIMENOrdering Facility: [facility] Address: [address] [place] [address] Performed By: #### 2 4356-8 ####[facility] LABIA [id number] [place] [address] [place] Protein (U) [Mass/Vol] Negative Normal Negative [facility] Comment on above: Order Comment: Speci men Type: URINE SPECIMENOrdering Facility: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 - guaiFENesin (MUCINEX) 1,200 mg Ta12 Take 1 tablet by mouth two times a day. - metFORMIN ER (GLUCOPHAGE XR) 500 mg 24 hr tablet Take one tablet daily with breakfast for 7 days, then increase to one tablet twice daily with breakfast and dinner. - meloxicam (MOBIC) 15 mg tablet take 1 tablet once daily - fexofenadine (ANÍBAL) 180 mg tablet Take 1 tablet by mouth once daily. - CPAP/BIPAP/OTHER Replacement autobipap 20/06 with PS of 5cmH2O DME [employer] - fluticasone (FLONASE) 50 mcg/actuation nasal spray USE 2 SPRAYS IN EACH NOSTRIL ONCE DAILY - guaiFENesin (MUCINEX) 600 mg 12 hr tablet Take 1,200 mg by mouth twice daily as needed for cold/allergy symptoms. - fish oil/borage/flax/om3,6,9 1 ([place] 3-6-9 ORAL) Take by mouth. - alpha lipoic acid (LIPOIC ACID ORAL) Take by mouth. - ZINC ORAL Take by mouth. - LYSINE ORAL Take by mouth. - CPAP Continue BiPAP with new settings: @ 14/8 cm of water with humidification. No new equipment is needed. - aspirin, enteric coated (ASPIRIN, ENTERIC COATED) 81 mg EC tablet Take 81 mg by mouth once daily. - IRON, FERROUS SULFATE, ORAL Take by mouth once daily. - ASCORBIC ACID (VITAMIN C ORAL) Take by mouth once daily. - buPROPion (WELLBUTRIN) 75 mg tablet Take 150 mg by mouth twice daily. 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 Normal [facility] CBC W Auto Differential pane l (Bld)on 10-26-2024 Basophils (Bld) [#/Vol] 0.07 10*3/uL Normal <0.11 [facility] Comment on above: Order Comment: Speci men Type: BLOOD SPECIMENOrdering Facility: [facility] Address: [address] [place] [address] Performed By: #### 5 7021-8 ####[facility] LABCLIA [id number] [place] [address] [place] Basophils/100 WBC (Bld) 0.9 % Normal [facility] Comment on above: Order Comment: Speci men Type: BLOOD SPECIMENOrdering Facility: [facility] Address: [address] [place] [address] Performed By: #### 5 7021-8 ####[facility] LABCLIA [id number] [place] [address] [place] Differential cell count method Nom (Bld) Auto Normal [facility] Comment on above: Order Comment: Speci men Type: BLOOD SPECIMENOrdering Facility: [facility] Address: [address] [place] [address] Performed By: #### 5 7021-8 ####[facility] LABCLIA [id number] [place] [address] [place] Eosinophils (Bld) [#/Vol] 0.30 10*3/uL Normal <0.46 [facility] Comment on above: Order Comment: Speci men Type: BLOOD SPECIMENOrdering Facility: [facility] Address: [address] [place] [address] Performed By: #### 5 7021-8 ####[facility]CLIA [id number] [place] [address] [place] Eosinophils/100 WBC (Bld) 3.8 % Normal [facility] Comment on above: Order Comment: Speci men Type: BLOOD SPECIMENOrdering Facility: [facility] Address: [address] [place] [address] Performed By: #### 5 7021-8 ####[facility] LABCLIA [id number] [place] [address] [place] Erythrocyte distribution width (RBC) [Ratio] 14.5 % Normal 11.5-15.0 [facility] Comment on above: Order Comment: Speci men Type: BLOOD SPECIMENOrdering Facility: [facility] Address: [address] [place] [address] Performed By: #### 5 7021-8 ####[facility] LABCLIA [id number] [place] [address] [place] Hematocrit (Bld) [Volume fraction] 38.9 % Low 39.0-51.0 [facility] Comment on above: Order Comment: Speci men Type: BLOOD SPECIMENOrdering Facility: [facility] Address: [address] [place] [address] Performed By: #### 5 7021-8 ####[facility] LABIA [id number] [place] [address] [place] Hemoglobin (Bld) [Mass/Vol] 12.3 g/dL Low 13.0-17.0 [facility] Comment on above: Order Comment: Speci men Type: BLOOD SPECIMENOrdering Facility: [facility] Address: [address] [place] [address] Performed By: #### 5 7021-8 ####[facility] LABIA [id number] [place] [address] [place] Immature granulocytes (Bld) [#/Vol] 0.06 10*3/uL Normal <0.10 [facility] Comment on above: Order Comment: Speci men Type: BLOOD SPECIMENOrdering Facility: [facility] Address: [address] [place] [address] Performed By: #### 5 7021-8 ####[facility] LABCLIA [id number] [place] [address] [place] Immature granulocytes/100 WBC (Bld) 0.8 % Normal [facility] Comment on above: Order Comment: Speci men Type: BLOOD SPECIMENOrdering Facility: [facility] Address: [address] [place] [address] Performed By: #### 5 7021-8 ####[facility] LABCLIA [id number] [place] [address] [place] Lymphocytes (Bld) [#/Vol] 2.91 10*3/uL Normal 1.00-4.00 [facility] Comment on above: Order Comment: Speci men Type: BLOOD SPECIMENOrdering Facility: [facility] Address: [address] [place] [address] Performed By: #### 5 7021-8 ####[facility] LABCLIA [id number] [place] [address] [place] Lymphocytes/100 WBC (Bld) 36.6 % Normal [facility] Comment on above: Order Comment: Speci men Type: BLOOD SPECIMENOrdering Facility: [facility] Address: [address] [place] [address] Performed By: #### 5 7021-8 ####[facility] LABCLIA [id number] [place] [address] [place] MCH (RBC) [Entitic mass] 30.2 pg Normal 26.0-34.0 [facility] Comment on above: Order Comment: Speci men Type: BLOOD SPECIMENOrdering Facility: [facility] Address: [address] [place] [address] Performed By: #### 5 7021-8 ####[facility] LABCLIA [id number] [place] [address] [place] MCHC (RBC) [Mass/Vol] 31.6 g/dL Normal 30.5-36.0 [facility] Comment on above: Order Comment: Speci men Type: BLOOD SPECIMENOrdering Facility: [facility] Address: [address] [place] [address] Performed By: #### 5 7021-8 ####[facility] LABCLIA [id number] [place] [address] [place] MCV (RBC) [Entitic vol] 95.6 fL Normal 80.0-100.0 [facility] Comment on above: Order Comment: Speci men Type: BLOOD SPECIMENOrdering Facility: [facility] Address: [address] [place] [address] Performed By: #### 5 7021-8 ####[facility] LABIA [id number] [place] [address] [place] Monocytes (Bld) [#/Vol] 0.76 10*3/uL Normal <0.87 [facility] Comment on above: Order Comment: Speci men Type: BLOOD SPECIMENOrdering Facility: [facility] Address: [address] [place] [address] Performed By: #### 5 7021-8 ####[facility] LABIA [id number] [place] [address] [place] Monocytes/100 WBC (Bld) 9.6 % Normal [facility] Comment on above: Order Comment: Speci men Type: BLOOD SPECIMENOrdering Facility: [facility] Address: [address] [place] [address] Performed By: #### 5 7021-8 ####[facility] LABIA [id number] [place] [address] [place] Neutrophils (Bld) [#/Vol] 3.85 10*3/uL Normal 1.45-7.50 [facility] Comment on above: Order Comment: Speci men Type: BLOOD SPECIMENOrdering Facility: [facility] Address: [address] [place] [address] Performed By: #### 5 7021-8 ####[facility] LABCLIA [id number] [place] [address] [place] Neutrophils/100 WBC (Bld) 48.3 % Normal [facility] Comment on above: Order Comment: Speci men Type: BLOOD SPECIMENOrdering Facility: [facility] Address: [address] [place] [address] Performed By: #### 5 7021-8 ####[facility] LABCLIA [id number] [place] [address] [place] Nucleated RBC (Bld) [#/Vol] 10*3/uL Normal <0.01 [facility] Comment on above: Order Comment: Speci men Type: BLOOD SPECIMENOrdering Facility: [facility] Address: [address] [place] [address] Performed By: #### 5 7021-8 ####[facility] LABCLIA [id number] [place] [address] [place] Nucleated RBC/100 WBC (Bld) [Ratio] 0.0 /100 WBC Normal [facility] Comment on above: Order Comment: Speci men Type: BLOOD SPECIMENOrdering Facility: [facility] Address: [address] [place] [address] Performed By: #### 5 7021-8 ####[facility] LABCLIA [id number] [place] [address] [place] Platelet mean volume (Bld) [Entitic vol] 8.5 fL Low 9.0-12.7 [facility] Comment on above: Order Comment: Speci men Type: BLOOD SPECIMENOrdering Facility: [facility] Address: [address] [place] [address] Performed By: #### 5 7021-8 ####[facility] LABIA [id number] [place] [address] [place] Platelets (Bld) [#/Vol] 296 10*3/uL Normal 150-400 [facility] Comment on above: Order Comment: Speci men Type: BLOOD SPECIMENOrdering Facility: [facility] Address: [address] [place] [address] Performed By: #### 5 7021-8 ####[facility] LABIA [id number] [place] [address] [place] RBC (Bld) [#/Vol] 4.07 10*6/uL Low 4.20-6.00 [facility] Comment on above: Order Comment: Speci men Type: BLOOD SPECIMENOrdering Facility: [facility] Address: [address] [place] [address] Performed By: #### 5 7021-8 ####[facility] LABIA [id number] [place] [address] [place] WBC (Bld) [#/Vol] 7.95 10*3/uL Normal 3.70-11.00 [facility] Comment on above: Order Comment: Speci men Type: BLOOD SPECIMENOrdering Facility: [facility] Address: [address] [place] [address] Performed By: #### 5 7021-8 ####[facility] [id number] [address] [place] TPMT PHENOTYPE/ENZYME ACTIVI TYon 10-08-2024 Thiopurine methyltransferase (RBC) [Catalytic activity/Vol] 25.4 U/mL 24.0 - 44.0 U/mL [facility] Comment on above: INTERPRETIVE INFORMA TION: Thiopurine Methyltransferase, RBC Normal TPMT activity: 24.0-44.0 U/mL................Individuals are predicted to be at low risk of bone marrow toxicity (myelosuppression) as a consequence of standard thiopurine therapy; no dose adjustment is recommended. Intermediate TPMT activity: 17.0-23.9 U/mL................Individuals are predicted to be at intermediate risk of bone marrow toxicity (myelosuppression) as a consequence of standard thiopurine therapy; a dose reduction and therapeutic drug management is recommended. Low TPMT activity: less than 17.0 U/mL...........Individuals are predicted to be at high risk of bone marrow toxicity (myelosuppression) as a consequence of standard thiopurine dosing. It is recommended to avoid the use of thiopurine drugs. High TPMT activity: greater than 44.0 U/mL........Individuals are not predicted to be at risk for bone marrow toxicity (myelosuppression) as a consequence of standard thiopurine dosing, but may be at risk for therapeutic failure due to excessive inactivation of thiopurine drugs. Individuals may require higher than the normal standard dose. Therapeutic drug management is recommended. The TPMT, RBC assay is used as a screen to detect individuals with low and intermediate TPMT activity who may be at risk for myelosuppression when exposed to standard doses of thiopurines, including azathioprine (Imuran) and 6-mercaptopurine (Purinethol). TPMT is the primary metabolic route for inactivation of thiopurine drugs in the bone marrow. When TPMT activity is low, it is predicted that proportionately more 6-mercaptopurine can be converted into the cytotoxic 6-thioguanine nucleotides that accumulate in the bone marrow causing excessive toxicity. The activity of TPMT is measured by the nanomoles of 6-methylmercaptopurine (inactive metabolite) produced per 1 mL of packed red blood cells, (U/mL). TPMT phenotype testing does not replace the need for clinical monitoring of patients treated with thiopurine drugs. Genotype for TPMT cannot be inferred from TPMT activity (phenotype). Phenotype testing should not be requested for patients currently treated with thiopurine drugs. Current TPMT phenotype may not reflect future TPMT phenotype, particularly in patients who received blood transfusion within 30-60 days of testing. TPMT enzyme activity can be inhibited by several drugs such as: naproxen (Aleve), ibuprofen (Advil, Motrin), ketoprofen (Orudis), furosemide (Lasix), sulfasalazine (Azulfidine), mesalamine (Asacol), olsalazine (Dipentum), mefenamic acid (Ponstel), thiazide diuretics, and benzoic acid inhibitors. TPMT inhibitors may contribute to falsely low results; patients should abstain from these drugs for at least 48 hours prior to TPMT testing. Falsely low results may also occur as a result of inappropriate specimen handling and hemolysis. This test was developed and its performance characteristics determined by [employer]. It has not been cleared or approved by the [place] Food and Drug Administration. This test was performed in a CLIA certified laboratory and is intended for clinical purposes. Performed By: [facility] [employer] [facility] [address] [place] [address] Office Rental Clerk: Jarrod Hamilton MD, PhD CLIA Number: [id number] [facility] CNPJanuary 10-07-2024 CNPN Telephone (RHEUMN) ZAYDA DE LA VEGA ([id number]) 1950 M Date Time Provider Department 10/07/24 PAT SEO During your visit today, we recorded the following information about you: Pat Seo MD 10/07/2024 12:34 PM Signed Due to his hypersomnolence in face of CPAP, reviewed his case with Sleep Team by EMR They will see him back. MD Chucky Mcknight Matthew P, MD 10/14/2024 12:56 PM Signed Reviewed case with Hematology by EMR They are OK with patient starting AZA TPMT OK Rest of new labs OK message to patient. MD Chucky Mcknight Matthew P, MD 10/18/2024 12:30 PM Signed Addended by: PAT SEO on: 10/18/2024 12:30 PM Modules accepted: Orders Pat Seo MD 10/20/2024 2:37 PM Signed Starting AZA 50 mg a day CBC in 1 week MD Chucky Mcknight Matthew P, MD 10/20/2024 2:37 PM Signed Addended by: PAT SEO on: 10/20/2024 02:37 PM Modules accepted: Orders Allergies As of Date: 10/07/2024 Noted Allergy Reaction ASPARTAME 03/06/2011 7 - Swelling Comments: Pt gets burning sensation under skin BETADINE (POVIDONE-IODINE) 04/09/2013 2 - Rash Comments: Blister CYMBALTA (DULOXETINE) 09/08/2023 14 - Other: See Comments Comments: Sweating LISINOPRIL 01/14/2022 3 - Cough Comments: Cough LOSARTAN 09/09/2021 3 - Cough NIACIN 01/18/2011 14 - Other: See Comments Comments: Niacin-Dermid Burning pain all over PENICILLINS 12/10/2003 2 - Rash SEASONAL ALLERGIES 09/05/2013 14 - Other: See Comments Comments: GRASS POLLEN-positive skin test 09-05-13 SUDAFED (PSEUDOEPHEDRINE HCL) 01/18/2011 14 - Other: See Comments Comments: Difficulty swallowing, swelling of tongue AND lips TAMIFLU (OSELTAMIVIR PHOSPHATE) 02/11/2014 12 - Shortness of Breath Comments: SOB, arm pain TRAZODONE 03/05/2020 12 - Shortness of Breath ULTRAM (TRAMADOL) 03/21/2013 Comments: Per patient contraindication due to wellbutrin Date Reviewed: 10/04/2024 Reviewed by: Daniella Zarco - Fully Assessed Reason for Visit: Patient Conference [768] Results [95] Primary Visit Diagnosis:Medication monitoring encounter [Z51.81] Order(s):azaTHIOprine (IMURAN) 50 mg tabletTake 1 tablet by mouth once daily.Disp: 30 tabletRfl: 1 COMPLETE BLOOD COUNT AND DIFFERENTIAL [SQCBCDIF] Order #: [id number] FUTURE Prescriptions as of 10/20/2024 - azaTHIOprine (IMURAN) 50 mg tablet Take 1 tablet by mouth once daily. - dextromethorphan-guaiFENesin (MUCINEX-DM) 60-1,200 mg tablet Take 1 tablet by mouth every 12 hours. - HYDROcodone-acetaminophen (NORCO) 5-325 mg per tablet Take 1 tablet by mouth every 8 hours as needed for pain for up to 30 days. - tamsulosin (FLOMAX) 0.4 mg Take 1 capsule by mouth daily at bedtime. - azelastine 0.1% nasal spray Use 1 [place] in each nostril two times a day. - amLODIPine (NORVASC) 5 mg tablet Take 1 tablet by mouth once daily. - metoprolol succinate ER (TOPROL XL) 25 mg 24 hr tablet Take 2 tablets by mouth once daily. - fluticasone-salmeterol (ADVAIR DISKUS) 250-50 mcg/dose inhaler Inhale 1 Puff as instructed two times a day. - albuterol HFA (VENTOLIN HFA) 90 mcg/actuation inhaler Inhale 2 Puffs as instructed every 4 hours as needed. - predniSONE (DELTASONE) 10 mg tablet Take 1 tablet by mouth two times a day. - hydrOXYchloroQUINE (PLAQUENIL) 200 mg tablet Take 1 tablet by mouth two times a day. - pregabalin (LYRICA) 225 mg capsule Take 1 capsule by mouth two times a day for 90 days. - pseudoephedrine HCl (PSEUDOEPHEDRINE NASAL DECON ORAL) Take by mouth. - guaiFENesin (MUCINEX) 1,200 mg Ta12 Take 1 tablet by mouth two times a day. - metFORMIN ER (GLUCOPHAGE XR) 500 mg 24 hr tablet Take one tablet daily with breakfast for 7 days, then increase to one tablet twice daily with breakfast and dinner. - meloxicam (MOBIC) 15 mg tablet take 1 tablet once daily - fexofenadine (ANÍBAL) 180 mg tablet Take 1 tablet by mouth once daily. - CPAP/BIPAP/OTHER Replacement autobipap 18/ with PS of 5cmH2O DME [employer] - fluticasone (FLONASE) 50 mcg/actuation nasal spray USE 2 SPRAYS IN EACH NOSTRIL ONCE DAILY - guaiFENesin (MUCINEX) 600 mg 12 hr tablet Take 1,200 mg by mouth twice daily as needed for cold/allergy symptoms. - fish oil/borage/flax/om3,6,9 1 (OMEGA 3-6-9 ORAL) Take by mouth. - alpha lipoic acid (LIPOIC ACID ORAL) Take by mouth. - ZINC ORAL Take by mouth. - LYSINE ORAL Take by mouth. - CPAP Continue BiPAP with new settings: @ 14/8 cm of water with humidification. No new equipment is needed. - aspirin, enteric coated (ASPIRIN, ENTERIC COATED) 81 mg EC tablet Take 81 mg by mouth once daily. - IRON, FERROUS SULFATE, ORAL Take by mouth once daily. - ASCORBIC ACID (VITAMIN C ORAL) Take by mouth once daily. - buPROPion (WELLBUTRIN) 75 mg tablet Take 150 mg by mouth twice daily. Problem List As Of Da (more content not included)... Normal [facility] CBC W Auto Differential pane l (Bld)on 10-04-2024 Basophils (Bld) [#/Vol] 0.07 10*3/uL [facility] Basophils/100 WBC (Bld) 0.7 % [facility] Differential cell count method Nom (Bld) Auto [facility] Eosinophils (Bld) [#/Vol] 0.34 10*3/uL [facility] Eosinophils/100 WBC (Bld) 3.4 % [facility] Erythrocyte distribution width (RBC) [Ratio] 14.2 % 11.5 - 15.0 % [facility] Hematocrit (Bld) [Volume fraction] 40.5 % 39.0 - 51.0 % [facility] Hemoglobin (Bld) [Mass/Vol] 13.0 g/dL 13.0 - 17.0 g/dL [facility] Immature granulocytes (Bld) [#/Vol] 0.18 10*3/uL High [facility] Immature granulocytes/100 WBC (Bld) 1.8 % [facility] Interpretation and review of laboratory results Abnormal [facility] Lymphocytes (Bld) [#/Vol] 3.61 10*3/uL [facility] Lymphocytes/100 WBC (Bld) 36.4 % [facility] MCH (RBC) [Entitic mass] 30.4 pg 26.0 - 34.0 pg [facility] MCHC (RBC) [Mass/Vol] 32.1 g/dL 30.5 - 36.0 g/dL [facility] MCV (RBC) [Entitic vol] 94.8 fL 80.0 - 100.0 fL [facility] Monocytes (Bld) [#/Vol] 0.84 10*3/uL [facility] Monocytes/100 WBC (Bld) 8.5 % [facility] Neutrophils (Bld) [#/Vol] 4.88 10*3/uL [facility] Neutrophils/100 WBC (Bld) 49.2 % [facility] Nucleated RBC (Bld) [#/Vol] [facility] Nucleated RBC/100 WBC (Bld) [Ratio] 0.0 % /100 WBC [facility] Platelet mean volume (Bld) [Entitic vol] 9.0 fL 9.0 - 12.7 fL [facility] Platelets (Bld) [#/Vol] 273 10*3/uL [facility] RBC (Bld) [#/Vol] 4.27 10*6/uL 4.20 - 6.0 0 m/uL [facility] WBC (Bld) [#/Vol] 9.92 10*3/uL [facility] Basophils (Bld) [#/Vol] 0.07 10*3/uL Normal <0.11 [facility] Comment on above: Order Comment: Speci men Type: BLOOD SPECIMENOrdering Facility: [facility] Address: [address] [place] [address] Performed By: #### 5 7021-8 ####[facility] LABCLIA [id number] [place] [address] [place] Basophils/100 WBC (Bld) 0.7 % Normal [facility] Comment on above: Order Comment: Speci men Type: BLOOD SPECIMENOrdering Facility: [facility] Address: [address] [place] [address] Performed By: #### 5 7021-8 ####[facility] LABCLIA [id number] [place] [address] [place] Differential cell count method Nom (Bld) Auto Normal [facility] Comment on above: Order Comment: Speci men Type: BLOOD SPECIMENOrdering Facility: [facility] Address: [address] [place] [address] Performed By: #### 5 7021-8 ####[facility] LABCLIA [id number] [place] [address] [place] Eosinophils (Bld) [#/Vol] 0.34 10*3/uL Normal <0.46 [facility] Comment on above: Order Comment: Speci men Type: BLOOD SPECIMENOrdering Facility: [facility] Address: [address] [place] [address] Performed By: #### 5 7021-8 ####[facility] LABCLIA [id number] [place] [address] [place] Eosinophils/100 WBC (Bld) 3.4 % Normal [facility] Comment on above: Order Comment: Speci men Type: BLOOD SPECIMENOrdering Facility: [facility] Address: [address] [place] [address] Performed By: #### 5 7021-8 ####[facility] LABCLIA [id number] [place] [address] [place] Erythrocyte distribution width (RBC) [Ratio] 14.2 % Normal 11.5-15.0 [facility] Comment on above: Order Comment: Speci men Type: BLOOD SPECIMENOrdering Facility: [facility] Address: [address] [place] [address] Performed By: #### 5 7021-8 ####[facility] LABCLIA [id number] [place] [address] [place] Hematocrit (Bld) [Volume fraction] 40.5 % Normal 39.0-51.0 [facility] Comment on above: Order Comment: Speci men Type: BLOOD SPECIMENOrdering Facility: [facility] Address: [address] [place] [address] Performed By: #### 5 7021-8 ####[facility] LABCLIA [id number] [place] [address] [place] Hemoglobin (Bld) [Mass/Vol] 13.0 g/dL Normal 13.0-17.0 [facility] Comment on above: Order Comment: Speci men Type: BLOOD SPECIMENOrdering Facility: [facility] Address: [address] [place] [address] Performed By: #### 5 7021-8 ####[facility] LABCLIA [id number] [place] [address] [place] Immature granulocytes (Bld) [#/Vol] 0.18 10*3/uL High <0.10 [facility] Comment on above: Order Comment: Speci men Type: BLOOD SPECIMENOrdering Facility: [facility] Address: [address] [place] [address] Performed By: #### 5 7021-8 ####[facility] LABCLIA [id number] [place] [address] [place] Immature granulocytes/100 WBC (Bld) 1.8 % Normal [facility] Comment on above: Order Comment: Speci men Type: BLOOD SPECIMENOrdering Facility: [facility] Address: [address] [place] [address] Performed By: #### 5 7021-8 ####[facility] LABCLIA [id number] [place] [address] [place] Lymphocytes (Bld) [#/Vol] 3.61 10*3/uL Normal 1.00-4.00 [facility] Comment on above: Order Comment: Speci men Type: BLOOD SPECIMENOrdering Facility: [facility] Address: [address] [place] [address] Performed By: #### 5 7021-8 ####[facility] LABCLIA [id number] [place] [address] [place] Lymphocytes/100 WBC (Bld) 36.4 % Normal [facility] Comment on above: Order Comment: Speci men Type: BLOOD SPECIMENOrdering Facility: [facility] Address: [address] [place] [address] Performed By: #### 5 7021-8 ####[facility] LABCLIA [id number] [place] [address] [place] MCH (RBC) [Entitic mass] 30.4 pg Normal 26.0-34.0 [facility] Comment on above: Order Comment: Speci men Type: BLOOD SPECIMENOrdering Facility: [facility] Address: [address] [place] [address] Performed By: #### 5 7021-8 ####[facility] LABCLIA [id number] [place] [address] [place] MCHC (RBC) [Mass/Vol] 32.1 g/dL Normal 30.5-36.0 [facility] Comment on above: Order Comment: Speci men Type: BLOOD SPECIMENOrdering Facility: [facility] Address: [address] [place] [address] Performed By: #### 5 7021-8 ####[facility] LABCLIA [id number] [place] [address] [place] MCV (RBC) [Entitic vol] 94.8 fL Normal 80.0-100.0 [facility] Comment on above: Order Comment: Speci men Type: BLOOD SPECIMENOrdering Facility: [facility] Address: [address] [place] [address] Performed By: #### 5 7021-8 ####[facility] LABCLIA [id number] [place] [address] [place] Monocytes (Bld) [#/Vol] 0.84 10*3/uL Normal <0.87 [facility] Comment on above: Order Comment: Speci men Type: BLOOD SPECIMENOrdering Facility: [facility] Address: [address] [place] [address] Performed By: #### 5 7021-8 ####[facility] LABCLIA [id number] [place] [address] [place] Monocytes/100 WBC (Bld) 8.5 % Normal [facility] Comment on above: Order Comment: Speci men Type: BLOOD SPECIMENOrdering Facility: [facility] Address: [address] [place] [address] Performed By: #### 5 7021-8 ####[facility] LABCLIA [id number] [place] [address] [place] Neutrophils (Bld) [#/Vol] 4.88 10*3/uL Normal 1.45-7.50 [facility] Comment on above: Order Comment: Speci men Type: BLOOD SPECIMENOrdering Facility: [facility] Address: [address] [place] [address] Performed By: #### 5 7021-8 ####[facility] LABCLIA [id number] [place] [address] [place] Neutrophils/100 WBC (Bld) 49.2 % Normal [facility] Comment on above: Order Comment: Speci men Type: BLOOD SPECIMENOrdering Facility: [facility] Address: [address] [place] [address] Performed By: #### 5 7021-8 ####[facility] LABCLIA [id number] [place] [address] [place] Nucleated RBC (Bld) [#/Vol] 10*3/uL Normal <0.01 [facility] Comment on above: Order Comment: Speci men Type: BLOOD SPECIMENOrdering Facility: [facility] Address: [address] [place] [address] Performed By: #### 5 7021-8 ####[facility] LABCLIA [id number] [place] [address] [place] Nucleated RBC/100 WBC (Bld) [Ratio] 0.0 /100 WBC Normal [facility] Comment on above: Order Comment: Speci men Type: BLOOD SPECIMENOrdering Facility: [facility] Address: [address] [place] [address] Performed By: #### 5 7021-8 ####[facility] LABCLIA [id number] [place] [address] [place] Platelet mean volume (Bld) [Entitic vol] 9.0 fL Normal 9.0-12.7 [facility] Comment on above: Order Comment: Speci men Type: BLOOD SPECIMENOrdering Facility: [facility] Address: [address] [place] [address] Performed By: #### 5 7021-8 ####[facility] LABCLIA [id number] [place] [address] [place] Platelets (Bld) [#/Vol] 273 10*3/uL Normal 150-400 [facility] Comment on above: Order Comment: Speci men Type: BLOOD SPECIMENOrdering Facility: [facility] Address: [address] [place] [address] Performed By: #### 5 7021-8 ####[facility] [id number] [place] [address] [place] RBC (Bld) [#/Vol] 4.27 10*6/uL Normal 4.20-6.00 [facility] Comment on above: Order Comment: Speci men Type: BLOOD SPECIMENOrdering Facility: [facility] Address: [address] [place] [address] Performed By: #### 5 7021-8 ####[facility] [id number] [place] [address] [place] WBC (Bld) [#/Vol] 9.92 10*3/uL Normal 3.70-11.00 [facility] Comment on above: Order Comment: Speci men Type: BLOOD SPECIMENOrdering Facility: [facility] Address: [address] [place] [address] Performed By: #### 5 7021-8 ####[facility] [id number] [place] [address] [place] CNOVon 10-04-2024 CNOV Office Visit (RHEUMN ) ZAYDA DE LA VEGA ([id number]) 1950 M Date Time Provider Department 10/04/24 11:20 AM PAT SEO RHEUMN During your visit today, we recorded the following information about you: Temperature Pulse Blood pressure Weight 97.9 degrees 55/minute 136/65 127.9 kg Height 1.727 m Pat Seo MD 10/20/2024 2:36 PM Signed RHEUMATOLOGY FOLLOW UP NOTE PROVIDER: Pat Seo MD DATE OF VISIT: 10/04/2024 PATIENT NAME: Zayda LUTHER CHIEF COMPLAINT / REASON FOR VISIT: SLE and joint pains SUBJECTIVE / INTERIM HISTORY: Patient returns for follow-up. Last seen here 2 mos ago. Since last visit: Old problems: 1. SLE Trial of prednisone repeated with some benefits Off now Still on HCQ and NSAIDs Considering other meds 2. Neuropathy 3. Gammopathy 4. Amyloid 5. (+) LAC Repeat neg No history of thrombosis New problems: 1. Notes increased hypersomnulence He sees Sleep Med Is on CPAP REVIEW OF SYSTEMS: Review of Systems CONSTITUTION: Negative for: Fever and Recent weight change HEENT: Positive for: Mouth sores, Trouble swallowing and Dry mouth Negative for: Nosebleeds RESPIRATORY: Positive for: Cough and Shortness of breath Negative for: Pain with breathing and Coughing up blood GASTROINTESTINAL: Positive for: Diarrhea Negative for: Melena, Heartburn and Abdominal pain MUSCULOSKELETAL: Positive for: Arthralgias, Myalgias, Muscle weakness and Morning Joint Stiffness Negative for: Joint swelling NEUROLOGICAL: Positive for: Numbness Negative for: Headaches and Memory loss SKIN: Positive for: Nail changes Negative for: Rash, Skin changes and Hair loss EYES: Positive for: Visual disturbance Negative for: Eye pain, Eye redness and Eye dryness CARDIOVASCULAR: Negative for: Chest pain and Leg swelling GENITOURINARY: Negative for: Dysuria and Hematuria HEMATOLOGIC/LYMPHATIC: Negative for: Swollen glands PAST MEDICAL AND SURGICAL HISTORY PAST MEDICAL HISTORY Diagnosis Date Anxiety Dr. Belle Arthritis of both hips Benign neoplasm of colon Bipolar disorder (HCC) Dr. Belle DDD (degenerative disc disease), lumbar Depressive disorder, not elsewhere classified Diverticulosis of colon (without mention of hemorrhage) HLD (hyperlipidemia) 06/13/2017 Hypertension Internal hemorrhoids without mention of complication Monoclonal paraproteinemia Morbid obesity (HCC) MARCELINA (obstructive sleep apnea) 1998 BiPAP Peripheral neuropathy Prediabetes 09/11/2019 Seasonal allergies Shoulder arthritis Systemic lupus erythematosus (HCC) 10/2021 PAST SURGICAL HISTORY Procedure Laterality Date ARTHROPLASTY TOTAL SHOULDER 04/03/2013 Right shoulder replacement ARTHRP ACETBLR/PROX FEM PROSTC AGRFT/ALGRFT 1992 Hip replacement, total RIGHT BACK SURGERY HX COLONOSCOPY FLX DX W/COLLJ SPEC WHEN PFRMD 08/11/1992 Colonoscopy COLONOSCOPY FLX DX W/COLLJ SPEC WHEN PFRMD 09/01/2018 Colonoscopy COLSC FLX W/RMVL OF TUMOR POLYP LESION SNARE TQ 06/26/2008 ESOPHAGOGASTRODUODENOSCOPY TRANSORAL DIAGNOSTIC 05/08/2020 EGD JOINT REPLACEMENT HX PAST SURGICAL HISTORY OF 1995 L5-S1 spinal fusion with pins, rods, and bolts PAST SURGICAL HISTORY OF 03/2011 Right hip revision PAST SURGICAL HISTORY OF 1970 right shoulder surgery PAST SURGICAL HISTORY OF Left 2018 shoulder replacement REVISE MEDIAN N/CARPAL TUNNEL SURG Left 01/25/2024 Left wrist, revision carpal tunnel release with neurolysis and nerve wrap. Synovial biopsy SOCIAL AND FAMILY HISTORY FAMILY HISTORY Problem Relation Age of Onset Cancer Mother skin Cancer Father KIDNEY other (Brain Tumor) Father No Known Problems Brother Cancer Sister thyroid Anesthesia Problems No Family History Social History Tobacco Use Smoking status: Former Current packs/day: 0.00 Average packs/day: 1 pack/day for 10.0 years (10.0 ttl pk-yrs) Types: Cigarettes Start date: 10/27/1973 Quit date: 10/27/1983 Years since quittin.9 Passive exposure: Past Smokeless tobacco: Never Vaping Use Vaping status: Never Used Substance Use Topics Alcohol use: Yes Comment: very rarely Drug use: Not Currently Comment: has tried marijuana gummies in the past for pain CURRENT MEDICATIONS: Current Outpatient Medications Medication Sig HYDROcodone-acetaminophen (NORCO) 5-325 mg per tablet Take 1 tablet by mouth every 8 hours as needed for pain for up to 30 days. tamsulosin (FLOMAX) 0.4 mg Take 1 capsule by mouth daily at bedtime. azelastine 0.1% nasal spray Use 1 [place] in each nostril two times a day. amLODIPine (NORVASC) 5 mg tablet Take 1 tablet by mouth once daily. metoprolol succinate ER (TOPROL XL) 25 mg 24 hr tablet Take 2 tablets by mouth once daily. fluticasone-salmeterol (ADVAIR DISKUS) 250-50 mcg/dose inhaler Inhale 1 Puff as instructed two times a day. albut (more content not included)... Normal [facility] CREATININE BLDon 10-04-2024 Creatinine [Mass/Vol] 0.77 mg/dL 0.73 - 1.22 mg/dL [facility] GFR/1.73 sq M.predicted among non-blacks MDRD (S/P/Bld) [Vol rate/Area] 93 mL/min/{1.73_m2} - PINF [facility] Comment on above: Estimated Glomerular Filtration Rate (eGFR) is calculated using the 2020 CKD-EPI creatinine equation. This equation utilizes serum creatinine, sex, and age as parameters. The creatinine assay has traceable calibration to isotope dilution-mass spectrometry. Refer to KDIGO guidelines for clinical interpretation. In patients with unstable renal function, e.g. those with acute kidney injury, the eGFR may not accurately reflect actual GFR. Creatinine [Mass/Vol] 0.77 mg/dL Normal 0.73-1.22 [facility] Comment on above: Order Comment: Juani ling Type: BLOOD SPECIMENOrdering Facility: [facility] Address: [address] [place] [address] Performed By: #### C RET1, 69405-1, 3016-3 ####[facility] LABCLIA [id number] [place] [address] [place] Creatinine and Glomerular filtration rate.predicted panel (S/P/Bld) 93 mL/min/1.73m??? Normal >=60 [facility] Comment on above: Order Comment: Juani ling Type: BLOOD SPECIMENOrdering Facility: [facility] Address: [address] [place] [address] Result Comment: Hannah mated Glomerular Filtration Rate (eGFR) is calculated using the 2020 CKD-EPI creatinine equation. This equation utilizes serum creatinine, sex, and age as parameters. The creatinine assay has traceable calibration to isotope dilution-mass spectrometry. Refer to KDIGO guidelines for clinical interpretation. In patients with unstable renal function, e.g. those with acute kidney injury, the eGFR may not accurately reflect actual GFR. Performed By: #### C RET1, 26064-9, 3016-3 ####[facility] LABCLIA [id number] [place] [address] [place] Hepatic function 2000 panelo n 10-04-2024 Albumin [Mass/Vol] 4.3 g/dL 3.9 - 4.9 g/dL [facility] ALP [Catalytic activity/Vol] 69 U/L 38 - 113 U/L [facility] ALT [Catalytic activity/Vol] 16 U/L 10 - 54 U/L [facility] AST [Catalytic activity/Vol] 16 U/L 14 - 40 U/L [facility] Bilirubin [Mass/Vol] 0.3 mg/dL 0.2 - 1.3 mg/dL [facility] Bilirubin.conjugate d [Mass/Vol] mg/dL NINF - 0.2 mg/dL [facility] Protein [Mass/Vol] 7.3 g/dL 6.3 - 8.0 g/dL [facility] Albumin [Mass/Vol] 4.3 g/dL Normal 3.9-4.9 [facility] Comment on above: Order Comment: Speci men Type: BLOOD SPECIMENOrdering Facility: [facility] Address: [address] [place] [address] Performed By: #### C UZMA1, 39765-6, 3 ####[facility] LABIA [id number] [place] [address] [place] ALP [Catalytic activity/Vol] 69 U/L Normal 38-113 [facility] Comment on above: Order Comment: Speci men Type: BLOOD SPECIMENOrdering Facility: [facility] Address: [address] [place] [address] Performed By: #### C RET1, 32037-3, 3015-3 ####[facility] LABIA [id number] [place] [address] [place] ALT [Catalytic activity/Vol] 16 U/L Normal 10-54 [facility] Comment on above: Order Comment: Speci men Type: BLOOD SPECIMENOrdering Facility: [facility] Address: [address] [place] [address] Performed By: #### C RET1, 11649-9, 6-3 ####[facility] LABCLIA [id number] [place] [address] [place] AST [Catalytic activity/Vol] 16 U/L Normal 14-40 [facility] Comment on above: Order Comment: Speci men Type: BLOOD SPECIMENOrdering Facility: [facility] Address: [address] [place] [address] Performed By: #### C RET1, 11355-1, 3015-3 ####[facility] LABCLIA [id number] [place] [address] [place] Bilirubin [Mass/Vol] 0.3 mg/dL Normal 0.2-1.3 [facility] Comment on above: Order Comment: Speci men Type: BLOOD SPECIMENOrdering Facility: [facility] Address: [address] [place] [address] Performed By: #### C RET1, 30114-8, 3015-3 ####[facility] LABIA [id number] [place] [address] [place] Bilirubin.conjugate d [Mass/Vol] mg/dL Normal <0.2 [facility] Comment on above: Order Comment: Speci men Type: BLOOD SPECIMENOrdering Facility: [facility] Address: [address] [place] [address] Performed By: #### C RET1, 03933-1, 3015-3 ####[facility] LABIA [id number] [place] [id number] [place] Protein [Mass/Vol] 7.3 g/dL Normal 6.3-8.0 [facility] Comment on above: Order Comment: Speci men Type: BLOOD SPECIMENOrdering Facility: [facility] Address: [address] [place] [address] Performed By: #### C RET1, 53129-6, 6-3 ####[facility] LABCLIA [id number] [facility] [id number] [address] [place] No Panel Informationon 10-04 Interpretation and review of laboratory results Normal [facility] THYROID STIMULATING HORMONEo n 10-04-2024 TSH Qn 2.120 m[IU]/L [facility] TPMT PHENOTYPE/ENZYME ACTIVI TYon 10-04-2024 TPMT ACTIVITY 25.4 U/mL Normal 24.0-44.0 [facility] Comment on above: Order Comment: Speci men Type: BLOOD SPECIMENOrdering Facility: [facility] Address: [address] [place] [address] [place] [address] Result Comment: INTE RPRETIVE INFORMATION: Thiopurine Methyltransferase, RBC Normal TPMT activity: 24.0-44.0 U/mL................Individuals are predicted to be at low risk of bone marrow toxicity (myelosuppression) as a consequence of standard thiopurine therapy; no dose adjustment is recommended. Intermediate TPMT activity: 17.0-23.9 U/mL................Individuals are predicted to be at intermediate risk of bone marrow toxicity (myelosuppression) as a consequence of standard thiopurine therapy; a dose reduction and therapeutic drug management is recommended. Low TPMT activity: less than 17.0 U/mL...........Individuals are predicted to be at high risk of bone marrow toxicity (myelosuppression) as a consequence of standard thiopurine dosing. It is recommended to avoid the use of thiopurine drugs. High TPMT activity: greater than 44.0 U/mL........Individuals are not predicted to be at risk for bone marrow toxicity (myelosuppression) as a consequence of standard thiopurine dosing, but may be at risk for therapeutic failure due to excessive inactivation of thiopurine drugs. Individuals may require higher than the normal standard dose. Therapeutic drug management is recommended. The TPMT, RBC assay is used as a screen to detect individuals with low and intermediate TPMT activity who may be at risk for myelosuppression when exposed to standard doses of thiopurines, including azathioprine (Imuran) and 6-mercaptopurine (Purinethol). TPMT is the primary metabolic route for inactivation of thiopurine drugs in the bone marrow. When TPMT activity is low, it is predicted that proportionately more 6-mercaptopurine can be converted into the cytotoxic 6-thioguanine nucleotides that accumulate in the bone marrow causing excessive toxicity. The activity of TPMT is measured by the nanomoles of 6-methylmercaptopurine (inactive metabolite) produced per 1 mL of packed red blood cells, (U/mL). TPMT phenotype testing does not replace the need for clinical monitoring of patients treated with thiopurine drugs. Genotype for TPMT cannot be inferred from TPMT activity (phenotype). Phenotype testing should not be requested for patients currently treated with thiopurine drugs. Current TPMT phenotype may not reflect future TPMT phenotype, particularly in patients who received blood transfusion within 30-60 days of testing. TPMT enzyme activity can be inhibited by several drugs such as: naproxen (Aleve), ibuprofen (Advil, Motrin), ketoprofen (Orudis), furosemide (Lasix), sulfasalazine (Azulfidine), mesalamine (Asacol), olsalazine (Dipentum), mefenamic acid (Ponstel), thiazide diuretics, and benzoic acid inhibitors. TPMT inhibitors may contribute to falsely low results; patients should abstain from these drugs for at least 48 hours prior to TPMT testing. Falsely low results may also occur as a result of inappropriate specimen handling and hemolysis. This test was developed and its performance characteristics determined by [employer]. It has not been cleared or approved by the [place] Food and Drug Administration. This test was performed in a CLIA certified laboratory and is intended for clinical purposes. Performed By: [employer] [address] [place] [address] Office Rental Clerk: Jarrod Hamilton MD, PhD CLIA Number: [id number] Performed By: #### P MARCOSZ ####[facility]IES[facility] [id number] [place] [id number] TSH Qnon 10-04-2024 Interpretation and review of laboratory results Normal [facility] TSH SerPl-aCncon 10-04-2024 TSH Qn 2.120 m[IU]/L Normal 0.270-4.200 [facility] Comment on above: Order Comment: Speci men Type: BLOOD SPECIMENOrdering Facility: [facility] Address: [address] [place] [place] [address] Performed By: #### C RET1, 38342-7, 3016-3 ####[facility] LABCLIA [id number] [id number] [facility] CNTHERAPYon 09-13-2024 CNTHERAPY OT/PT/Speech Visit ( PTWS) ZAYDA DE LA VEGA ([id number]) 1950 M Date Time Provider Department 09/13/24 2:15 PM HARMAN GILLIAM PTWS Date Time Provider Department Center 09/13/2024 2:15 PM [id number], COLIN PTWS Pablito Rizo Reason for Visit: PT Discharge [752] Primary Visit Diagnosis:Chronic bilateral low back pain with bilateral sciatica [M54.42, M54.41, G89.29] Other Visit Diagnosis:History of lumbar fusion [Z98.1] Allergies As of Date: 09/13/2024 Noted Allergy Reaction ASPARTAME 03/06/2011 7 - Swelling Comments: Pt gets burning sensation under skin BETADINE (POVIDONE-IODINE) 04/09/2013 2 - Rash Comments: Blister CYMBALTA (DULOXETINE) 09/08/2023 14 - Other: See Comments Comments: Sweating LISINOPRIL 01/14/2022 3 - Cough Comments: Cough LOSARTAN 09/09/2021 3 - Cough NIACIN 01/18/2011 14 - Other: See Comments Comments: Niacin-Dermid Burning pain all over PENICILLINS 12/10/2003 2 - Rash SEASONAL ALLERGIES 09/05/2013 14 - Other: See Comments Comments: GRASS POLLEN-positive skin test 09-05-13 SUDAFED (PSEUDOEPHEDRINE HCL) 01/18/2011 14 - Other: See Comments Comments: Difficulty swallowing, swelling of tongue AND lips TAMIFLU (OSELTAMIVIR PHOSPHATE) 02/11/2014 12 - Shortness of Breath Comments: SOB, arm pain TRAZODONE 03/05/2020 12 - Shortness of Breath ULTRAM (TRAMADOL) 03/21/2013 Comments: Per patient contraindication due to wellbutrin Date Reviewed: 09/03/2024 Reviewed by: Yoni Peng MD - Fully Assessed Prescriptions as of 09/13/2024 - metoprolol succinate ER (TOPROL XL) 25 mg 24 hr tablet Take 2 tablets by mouth once daily. - fluticasone-salmeterol (ADVAIR DISKUS) 250-50 mcg/dose inhaler Inhale 1 Puff as instructed two times a day. - albuterol HFA (VENTOLIN HFA) 90 mcg/actuation inhaler Inhale 2 Puffs as instructed every 4 hours as needed. - HYDROcodone-acetaminophen (NORCO) 5-325 mg per tablet Take 1 tablet by mouth every 8 hours as needed for pain for up to 30 days. - predniSONE (DELTASONE) 10 mg tablet Take 1 tablet by mouth two times a day. - amLODIPine (NORVASC) 5 mg tablet Take 1 tablet by mouth once daily. - hydrOXYchloroQUINE (PLAQUENIL) 200 mg tablet Take 1 tablet by mouth two times a day. - pregabalin (LYRICA) 225 mg capsule Take 1 capsule by mouth two times a day for 90 days. - pseudoephedrine HCl (PSEUDOEPHEDRINE NASAL DECON ORAL) Take by mouth. - guaiFENesin (MUCINEX) 1,200 mg Ta12 Take 1 tablet by mouth two times a day. - metFORMIN ER (GLUCOPHAGE XR) 500 mg 24 hr tablet Take one tablet daily with breakfast for 7 days, then increase to one tablet twice daily with breakfast and dinner. - azelastine 0.1% nasal spray Use 1 [place] in each nostril two times a day. - meloxicam (MOBIC) 15 mg tablet take 1 tablet once daily - fexofenadine (ANÍBAL) 180 mg tablet Take 1 tablet by mouth once daily. - tamsulosin (FLOMAX) 0.4 mg Take 1 capsule by mouth daily at bedtime. - CPAP/BIPAP/OTHER Replacement autobipap 18/ with PS of 5cmH2O DME [employer] - fluticasone (FLONASE) 50 mcg/actuation nasal spray USE 2 SPRAYS IN EACH NOSTRIL ONCE DAILY - guaiFENesin (MUCINEX) 600 mg 12 hr tablet Take 1,200 mg by mouth twice daily as needed for cold/allergy symptoms. - fish oil/borage/flax/om3,6,9 1 (OMEGA 3-6-9 ORAL) Take by mouth. - alpha lipoic acid (LIPOIC ACID ORAL) Take by mouth. - ZINC ORAL Take by mouth. - LYSINE ORAL Take by mouth. - CPAP Continue BiPAP with new settings: @ 14/8 cm of water with humidification. No new equipment is needed. - aspirin, enteric coated (ASPIRIN, ENTERIC COATED) 81 mg EC tablet Take 81 mg by mouth once daily. - IRON, FERROUS SULFATE, ORAL Take by mouth once daily. - ASCORBIC ACID (VITAMIN C ORAL) Take by mouth once daily. - buPROPion (WELLBUTRIN) 75 mg tablet Take 150 mg by mouth twice daily. 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: Addendum Therapy (PT/OT/Speech/Resp) ID: [id number] 09/13/2024 2:34 PM Author: HARMAN GILLIAM Signed by HARMAN GILLIAM PT on 09/13/2024 at 2:35 PM * * * This document replaces document [id number] * * * Document text: Program_ID:[id number] Access Code: [email or web address] URL: [email or web address] Date: 09-13-2024 Prepared By: Harman Gilliam Program Notes Exercises - Hooklying Single Knee to Chest Stretch with Towel - 2 x daily - 7 x weekly - 3 sets - reps - Supine Lower Trunk Rotation - 2 x daily - 7 x weekly - 2 sets - 10 reps - Supine Bridge - 2 x daily - 7 x weekly - 2 sets - 8-10 reps - Supine Transversus Abdominis Bracing - Hands on Stomach - 2 x daily - 7 x weekly - 2 sets - 10 reps - Supine Hip ABDuction with Resistance - 2 x daily - 5-7 x weekly - 2 sets - 10 reps - Supine Hip Adduction Isometric with Ball - 2 x daily - 5-7 x weekly - 2 sets - 10 reps - S (more content not included)... Normal [facility] THERAPY NTon 09-13-2024 THERAPY NT HNO ID: [id number] Author: HARMAN GILLIAM PT Service: ? Author Type: Physical Therapist Type: Therapy (PT/OT/Speech/Resp) Filed: 09/13/2024 14:35 Note Text: Program_ID:[id number] Access Code: [email or web address] URL: [email or web address] Date: 09-13-2024 Prepared By: Harman Gilliam Program Notes Exercises - Hooklying Single Knee to Chest Stretch with Towel - 2 x daily - 7 x weekly - 3 sets - reps - Supine Lower Trunk Rotation - 2 x daily - 7 x weekly - 2 sets - 10 reps - Supine Bridge - 2 x daily - 7 x weekly - 2 sets - 8-10 reps - Supine Transversus Abdominis Bracing - Hands on Stomach - 2 x daily - 7 x weekly - 2 sets - 10 reps - Supine Hip ABDuction with Resistance - 2 x daily - 5-7 x weekly - 2 sets - 10 reps - Supine Hip Adduction Isometric with Ball - 2 x daily - 5-7 x weekly - 2 sets - 10 reps - Standing Anti-Rotation Press with Anchored Resistance - 2 x daily - 5-7 x weekly - 2 sets - 10 reps - Supine Active Straight Leg Raise - 2 x daily - 5-7 x weekly - 2 sets - 8-10 reps Normal [facility] [place] 09-10-2024 EDOUARDN Telephone (FPWADS) ZAYDA DE LA VEGA ([id number]) 1950 M Date Time Provider Department 09/10/24 EDINSON ZARATE During your visit today, we recorded the following information about you: Maday Sheehan 09/10/2024 2:27 PM Signed Zayda is calling Edinson Zarate MD today with concern regarding Medication Problem. He has 3 meds that were sent in error to [facility] last month and he no longer uses that pharmacy. He has been out of medication, especially Metoprolol. He is asking for these to please be transferred today to his [facility]. Patient has been identified by name and birthdate. Duration of symptoms: N/A Person calling: self Call patient at: at home [phone] (home) [phone] (cell) Was an appointment scheduled: No Closing statement: Results or non-symptom based questions: Thank you for calling [facility], your call will be returned within the next business day. Sienna Rick LPN 09/10/2024 3:13 PM Signed Called pt left Vm sent [employer] message as well. Sienna Inman LPN 09/10/2024 5:32 PM Signed Rx pended. Please advise. Allergies As of Date: 09/10/2024 Noted Allergy Reaction ASPARTAME 03/06/2011 7 - Swelling Comments: Pt gets burning sensation under skin BETADINE (POVIDONE-IODINE) 04/09/2013 2 - Rash Comments: Blister CYMBALTA (DULOXETINE) 09/08/2023 14 - Other: See Comments Comments: Sweating LISINOPRIL 01/14/2022 3 - Cough Comments: Cough LOSARTAN 09/09/2021 3 - Cough NIACIN 01/18/2011 14 - Other: See Comments Comments: Niacin-Dermid Burning pain all over PENICILLINS 12/10/2003 2 - Rash SEASONAL ALLERGIES 09/05/2013 14 - Other: See Comments Comments: GRASS POLLEN-positive skin test 09-05-13 SUDAFED (PSEUDOEPHEDRINE HCL) 01/18/2011 14 - Other: See Comments Comments: Difficulty swallowing, swelling of tongue AND lips TAMIFLU (OSELTAMIVIR PHOSPHATE) 02/11/2014 12 - Shortness of Breath Comments: SOB, arm pain TRAZODONE 03/05/2020 12 - Shortness of Breath ULTRAM (TRAMADOL) 03/21/2013 Comments: Per patient contraindication due to wellbutrin Date Reviewed: 09/03/2024 Reviewed by: Yoni Peng MD - Fully Assessed Reason for Visit: Medication Problem [65] Cmt: 3 Rx's sent to wrong pharmacy Visit Diagnosis:Essential hypertension, benign [I10] Order(s):metoprolol succinate ER (TOPROL XL) 25 mg 24 hr tabletTake 2 tablets by mouth once daily.Disp: 180 tabletRfl: 3 Prescriptions as of 09/11/2024 - metoprolol succinate ER (TOPROL XL) 25 mg 24 hr tablet Take 2 tablets by mouth once daily. - fluticasone-salmeterol (ADVAIR DISKUS) 250-50 mcg/dose inhaler Inhale 1 Puff as instructed two times a day. - albuterol HFA (VENTOLIN HFA) 90 mcg/actuation inhaler Inhale 2 Puffs as instructed every 4 hours as needed. - HYDROcodone-acetaminophen (NORCO) 5-325 mg per tablet Take 1 tablet by mouth every 8 hours as needed for pain for up to 30 days. - predniSONE (DELTASONE) 10 mg tablet Take 1 tablet by mouth two times a day. - amLODIPine (NORVASC) 5 mg tablet Take 1 tablet by mouth once daily. - hydrOXYchloroQUINE (PLAQUENIL) 200 mg tablet Take 1 tablet by mouth two times a day. - pregabalin (LYRICA) 225 mg capsule Take 1 capsule by mouth two times a day for 90 days. - pseudoephedrine HCl (PSEUDOEPHEDRINE NASAL DECON ORAL) Take by mouth. - guaiFENesin (MUCINEX) 1,200 mg Ta12 Take 1 tablet by mouth two times a day. - metFORMIN ER (GLUCOPHAGE XR) 500 mg 24 hr tablet Take one tablet daily with breakfast for 7 days, then increase to one tablet twice daily with breakfast and dinner. - azelastine 0.1% nasal spray Use 1 [place] in each nostril two times a day. - meloxicam (MOBIC) 15 mg tablet take 1 tablet once daily - fexofenadine (ANÍBAL) 180 mg tablet Take 1 tablet by mouth once daily. - tamsulosin (FLOMAX) 0.4 mg Take 1 capsule by mouth daily at bedtime. - CPAP/BIPAP/OTHER Replacement autobipap 18/9 with PS of 5cmH2O DME [employer] - fluticasone (FLONASE) 50 mcg/actuation nasal spray USE 2 SPRAYS IN EACH NOSTRIL ONCE DAILY - guaiFENesin (MUCINEX) 600 mg 12 hr tablet Take 1,200 mg by mouth twice daily as needed for cold/allergy symptoms. - fish oil/borage/flax/om3,6,9 1 (OMEGA 3-6-9 ORAL) Take by mouth. - alpha lipoic acid (LIPOIC ACID ORAL) Take by mouth. - ZINC ORAL Take by mouth. - LYSINE ORAL Take by mouth. - CPAP Continue BiPAP with new settings: @ 14/8 cm of water with humidification. No new equipment is needed. - aspirin, enteric coated (ASPIRIN, ENTERIC COATED) 81 mg EC tablet Take 81 mg by mouth once daily. - IRON, FERROUS SULFATE, ORAL Take by mouth once daily. - ASCORBIC ACID (VITAMIN C ORAL) Take by mouth once daily. - buPROPion (WELLBUTRIN) 75 mg tablet Take 150 mg by mouth twice daily. Problem List As Of Date 09/10/2024 Noted Resolved LUMBOSACRAL NEURITIS NOS [[id number]] 12/10/2003 SPONDYLO (more content not included)... Normal [facility] [id number] 08-24-2024 [id number] HNO ID: [id number] Author: HARMAN GILLIAM PT Service: ? Author Type: Physical Therapist Type: [id number] Filed: 08/24/2024 06:55 Note Text: [facility] Rehabilitation and Sports Therapy Physical Therapy Plan of Care Certification Patient Name: Zayda De La Vega : 1950 [facility] #: [id number] Date: 08/23/2024 To: Bianca Denise DO From Therapist: Harman Gilliam PT RE: Patient Certification/ Recertification Your review, approval and electronic signature are required in order to comply with Payor: [employer] MEDICARE / Plan: [employer] MEDICARE PPO / Product Type: PPO / regulations. The identified Physical Therapy PLAN OF CARE for the patient is as follows: M54.42, M54.41, G89.29 Chronic bilateral low back pain with bilateral sciatica (primary encounter diagnosis) Z98.1 History of lumbar fusion PLAN OF CARE: Assessment: Zayda De La Vega presents with chief complaint of chronic midline LBP with intermittent radicular pain in the B lower extremities (unable to attribute what activity/position causes this) that interferes with walking, physical activities, standing . The patient presents with impairments in ADL's, gait, independence in exercise, overall function, posture, range of motion, symptom management, decreased strength in core and BLE; decreased flexibility in BLE. PROMIS? (Patient-Reported Outcomes Measurement Information System) scores were reviewed and identified as a rehabilitation concern. Prognosis for therapy is Good due to: current objective clinical presentation, positive past response to therapy, good support system/ coping skills .The patient will benefit from skilled therapy services to meet the goals established for this plan of care as noted below. Classification Pain Mechanism Classification: Neuropathic Low Back Pain Classification: Movement Control PAST MEDICAL HISTORY Diagnosis Date Anxiety Dr. Belle Arthritis of both hips Benign neoplasm of colon Bipolar disorder ([facility]) Dr. Belle DDD (degenerative disc disease), lumbar Depressive disorder, not elsewhere classified Diverticulosis of colon (without mention of hemorrhage) HLD (hyperlipidemia) 06/13/2017 Hypertension Internal hemorrhoids without mention of complication Monoclonal paraproteinemia Morbid obesity (HCC) MARCELINA (obstructive sleep apnea) 1998 BiPAP Peripheral neuropathy Prediabetes 09/11/2019 Seasonal allergies Shoulder arthritis Systemic lupus erythematosus (HCC) 10/2021 Goals for Episode of Care: established 08/23/24 Patient reported outcome of physical function will increase T-score by a minimum 5 points. [place] in home exercise program. Patient will decrease pain rating by 2 points to meet minimal clinical important difference for numeric pain rating scale. Patient will demonstrate increase in core strength to at least 3+/5 during manual muscle testing in order to improve function for prior functional tasks. Patient will demonstrate increase in BLE strength to 5/5 during manual muscle testing in order to improve function for prior functional tasks. Patient will increase flexibility of tissues surrounding BLE to WNL to decrease pain. Improve score on 5TSTS Test to <14 seconds to reflect decreased fall risk. Improve score on 30 Second Chair Stand to 11 repetitions to reflect decreased fall risk. Increase ROM of lumbar spine to WFL for all motions. Patient Goals: Improve Pain; Improve Strength and Conditioning. Time Frame for Goals and Treatment : 10/24/24 Planned Interventions, Frequency, and Duration: Current Frequency: 1x/week Duration: 4 weeks Total Number of Visits Planned: 4 Planned Treatment Interventions: Therapeutic exercise (21184), Neuromuscular re-education (80133), Manual therapy (22935), Therapeutic activities (49512), Self-alf management (65860), Gait Training (98193), Body Mechanics Training, Patient/Family/Caregiver Education PLAN FOR NEXT VISIT: Review, correct and progress HEP to tolerance. progress core stabilization exercises. Patient demonstrates good understanding of plan of care and treatment. The above goals and plan of care were discussed and agreed upon by patient/family. For further details regarding this patient refer to the Physical Therapy electronically documented visit dated 08/23/2024. Provider Attestation I have reviewed the treatment plan for Zayda Duque Ceferino, [facility]# [id number] for the period of 08/23/24 -- 10/02/24, established on 08/23/2024. Signature certifies the need for therapy services. Normal [facility] CNTHERAPYon 08-23-2024 CNTHERAPY OT/PT/Speech Visit ( PTWS) ZAYDA DE LA VEGA ([id number]) 1950 M Date Time Provider Department 08/23/24 3:45 PM HARMAN GILLIAM PTWS Date Time Provider Department Center 08/23/2024 3:45 PM [id number], [facility] PTWS Pablito Rizo Reason for Visit: PT Eval [747] Primary Visit Diagnosis:Chronic bilateral low back pain with bilateral sciatica [M54.42, M54.41, G89.29] Other Visit Diagnosis:History of lumbar fusion [Z98.1] Allergies As of Date: 08/23/2024 Noted Allergy Reaction ASPARTAME 03/06/2011 7 - Swelling Comments: Pt gets burning sensation under skin BETADINE (POVIDONE-IODINE) 04/09/2013 2 - Rash Comments: Blister CYMBALTA (DULOXETINE) 09/08/2023 14 - Other: See Comments Comments: Sweating LISINOPRIL 01/14/2022 3 - Cough Comments: Cough LOSARTAN 09/09/2021 3 - Cough NIACIN 01/18/2011 14 - Other: See Comments Comments: Niacin-Dermid Burning pain all over PENICILLINS 12/10/2003 2 - Rash SEASONAL ALLERGIES 09/05/2013 14 - Other: See Comments Comments: GRASS POLLEN-positive skin test 09-05-13 SUDAFED (PSEUDOEPHEDRINE HCL) 01/18/2011 14 - Other: See Comments Comments: Difficulty swallowing, swelling of tongue AND lips TAMIFLU (OSELTAMIVIR PHOSPHATE) 02/11/2014 12 - Shortness of Breath Comments: SOB, arm pain TRAZODONE 03/05/2020 12 - Shortness of Breath ULTRAM (TRAMADOL) 03/21/2013 Comments: Per patient contraindication due to wellbutrin Date Reviewed: 08/20/2024 Reviewed by: Katelyn Fernandez PA-C - Fully Assessed Prescriptions as of 08/24/2024 - hydrOXYchloroQUINE (PLAQUENIL) 200 mg tablet Take 1 tablet by mouth two times a day. - predniSONE (DELTASONE) 10 mg tablet Take 1 tablet by mouth two times a day. - pregabalin (LYRICA) 225 mg capsule Take 1 capsule by mouth two times a day for 90 days. - HYDROcodone-acetaminophen (NORCO) 5-325 mg per tablet Take 1 tablet by mouth every 8 hours as needed for pain for up to 30 days. Patient should start on August 11, 2024. - amLODIPine (NORVASC) 5 mg tablet Take 1 tablet by mouth once daily. - pseudoephedrine HCl (PSEUDOEPHEDRINE NASAL DECON ORAL) Take by mouth. - guaiFENesin (MUCINEX) 1,200 mg Ta12 Take 1 tablet by mouth two times a day. - albuterol HFA (VENTOLIN HFA) 90 mcg/actuation inhaler Inhale 2 Puffs as instructed every 4 hours as needed. - metFORMIN ER (GLUCOPHAGE XR) 500 mg 24 hr tablet Take one tablet daily with breakfast for 7 days, then increase to one tablet twice daily with breakfast and dinner. - azelastine 0.1% nasal spray Use 1 [place] in each nostril two times a day. - meloxicam (MOBIC) 15 mg tablet take 1 tablet once daily - fexofenadine (ANÍBAL) 180 mg tablet Take 1 tablet by mouth once daily. - fluticasone-salmeterol (ADVAIR DISKUS) 250-50 mcg/dose inhaler Inhale 1 Puff as instructed two times a day. - tamsulosin (FLOMAX) 0.4 mg Take 1 capsule by mouth daily at bedtime. - CPAP/BIPAP/OTHER Replacement autobipap / with PS of 5cmH2O DME [employer] - fluticasone (FLONASE) 50 mcg/actuation nasal spray USE 2 SPRAYS IN EACH NOSTRIL ONCE DAILY - metoprolol succinate ER (TOPROL XL) 25 mg 24 hr tablet Take 2 tablets by mouth once daily. - guaiFENesin (MUCINEX) 600 mg 12 hr tablet Take 1,200 mg by mouth twice daily as needed for cold/allergy symptoms. - fish oil/borage/flax/om3,6,9 1 (OMEGA 3-6-9 ORAL) Take by mouth. - alpha lipoic acid (LIPOIC ACID ORAL) Take by mouth. - ZINC ORAL Take by mouth. - LYSINE ORAL Take by mouth. - CPAP Continue BiPAP with new settings: @ 14/8 cm of water with humidification. No new equipment is needed. - aspirin, enteric coated (ASPIRIN, ENTERIC COATED) 81 mg EC tablet Take 81 mg by mouth once daily. - IRON, FERROUS SULFATE, ORAL Take by mouth once daily. - ASCORBIC ACID (VITAMIN C ORAL) Take by mouth once daily. - buPROPion (WELLBUTRIN) 75 mg tablet Take 150 mg by mouth twice daily. 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: Therapy (PT/OT/Speech/Resp) ID: [id number] 08/23/2024 4:26 PM Author: HARMAN GILLIAM Signed by HARMAN GILLIAM PT on 08/23/2024 at 4:26 PM Document text: Program_ID:[id number] Access Code: [email or web address] URL: [email or web address] Date: 08-23-2024 Prepared By: Harman Gilliam Program Notes Exercises - Hooklying Single Knee to Chest Stretch with Towel - 2 x daily - 7 x weekly - 3 sets - reps - Supine Lower Trunk Rotation - 2 x daily - 7 x weekly - 2 sets - 10 reps - Supine Bridge - 2 x daily - 7 x weekly - 2 sets - 8-10 reps - Supine Transversus Abdominis Bracing - Hands on Stomach - 2 x daily - 7 x weekly - 2 sets - 10 reps -------- Normal [facility] THERAPY NTon 08-23-2024 THERAPY NT HNO ID: [id number] Author: HARMAN GILLIAM PT Service: ? Author Type: Physical Therapist Type: Therapy (PT/OT/Speech/Resp) Filed: 08/23/2024 16:26 Note Text: Program_ID:[id number] Access Code: [email or web address] URL: [email or web address] Date: 08-23-2024 Prepared By: Harman Gilliam Program Notes Exercises - Hooklying Single Knee to Chest Stretch with Towel - 2 x daily - 7 x weekly - 3 sets - reps - Supine Lower Trunk Rotation - 2 x daily - 7 x weekly - 2 sets - 10 reps - Supine Bridge - 2 x daily - 7 x weekly - 2 sets - 8-10 reps - Supine Transversus Abdominis Bracing - Hands on Stomach - 2 x daily - 7 x weekly - 2 sets - 10 reps Normal [facility] CNOVon 08-20-2024 CNOV Office Visit (ROBBY ) ZAYDA DE LA VEGA ([id number]) 1950 M Date Time Provider Department 08/20/24 2:00 PM KATELYN FERNANDEZ During your visit today, we recorded the following information about you: Pulse Blood pressure 58/minute 146/76 Katelyn Fernandez PA-C 08/20/2024 2:42 PM Signed Wellness Follow up Mr.Paul Neto De La Vega is a 73 year old male is here for a wellness and preventive medicine follow up visit. Chief complaint: pain HPI: 73 year old male here in follow up with chronic joint pains and nerve pain related to neuropathy. He also follows with spine. He tried acupuncture with marginal relief. He is currently on prednisone/off meloxicam. It seems to be helping his nerve condition, but OA pain worse. He is regularly taking 1.5 hour nap every day, but also sleeping better at night. He only did the chair yoga a few times and his diet is similar. Limiting dairy though did help his PND and cough. Psychosocial: Nutrition: limited dairy, corn flakes with raisins, almond milk; meat, vegetable, chicken salad, saltine crackers, grapes Water: mostly water 30 oz/day, cranberry juice (non-sugar); Alcohol: rare Caffeine: limiting pop BM: daily, formed Sleep: 10-5 or 7-10; 1.5 nap/day, CPAP Movement/exercise - PT starting tomorrow Stress - mild 04/23/24: 73 year old male with a history of SLE, neuropathy, MARCELINA and GERD presents with OA (bilateral hip and shoulder replacements), but now mostly in feet. 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 He is also followed fo gamminopathy. His pain is mostly muscle, tendons and burning skin on UE and LE. He also has some muscle weakness and pain. He also has neuropathy in hands and feet. TENS unit did not help the back pain in the past. ALLERGIES Allergen Reactions Aspartame Swelling Pt gets burning sensation under skin Betadine [Povidone-* Rash Blister Cymbalta [Duloxetin* Other: See Comments Sweating Lisinopril Cough Cough Losartan Cough Niacin Other: See Comments Niacin-Dermid Burning pain all over Penicillins Rash Seasonal Allergies Other: See Comments GRASS POLLEN-positive skin test 09-05-13 Sudafed [Pseudoephe* Other: See Comments Difficulty swallowing, swelling of tongue AND lips Tamiflu [Oseltamivi* Shortness of Breath SOB, arm pain Trazodone Shortness of Breath Ultram [Tramadol] Per patient contraindication due to wellbutrin Current Outpatient Medications on File Prior to Visit Medication Sig predniSONE (DELTASONE) 10 mg tablet Take 1 tablet by mouth two times a day. pregabalin (LYRICA) 225 mg capsule Take 1 capsule by mouth two times a day for 90 days. HYDROcodone-acetaminophen (NORCO) 5-325 mg per tablet Take 1 tablet by mouth every 8 hours as needed for pain for up to 30 days. Patient should start on August 11, 2024. amLODIPine (NORVASC) 5 mg tablet Take 1 tablet by mouth once daily. pseudoephedrine HCl (PSEUDOEPHEDRINE NASAL DECON ORAL) Take by mouth. guaiFENesin (MUCINEX) 1,200 mg Ta12 Take 1 tablet by mouth two times a day. albuterol HFA (VENTOLIN HFA) 90 mcg/actuation inhaler Inhale 2 Puffs as instructed every 4 hours as needed. metFORMIN ER (GLUCOPHAGE XR) 500 mg 24 hr tablet Take one tablet daily with breakfast for 7 days, then increase to one tablet twice daily with breakfast and dinner. azelastine 0.1% nasal spray Use 1 [place] in each nostril two times a day. meloxicam (MOBIC) 15 mg tablet take 1 tablet once daily fexofenadine (ANÍBAL) 180 mg tablet Take 1 tablet by mouth once daily. fluticasone-salmeterol (ADVAIR DISKUS) 250-50 mcg/dose inhaler Inhale 1 Puff as instructed two times a day. tamsulosin (FLOMAX) 0.4 mg Take 1 capsule by mouth daily at bedtime. CPAP/BIPAP/OTHER Replacement autobipap 18/9 with PS of 5cmH2O DME [employer] hydrOXYchloroQUINE (PLAQUENIL) 200 mg tablet Take 1 tablet by mouth two times a day. fluticasone (FLONASE) 50 mcg/actuation nasal spray USE 2 SPRAYS IN EACH NOSTRIL ONCE DAILY metoprolol succinate ER (TOPROL XL) 25 mg 24 hr tablet Take 2 tablets by mouth once daily. guaiFENesin (MUCINEX) 600 mg 12 hr tablet Take 1,200 mg by mouth twice daily as needed for cold/allergy symptoms. fish oil/borage/flax/om3,6,9 1 (OMEGA 3-6-9 ORAL) Take by mouth. alpha lipoic acid (LIPOIC ACID ORAL) Take by mouth. ZINC ORAL Take by mouth. LYSINE ORAL Take by mouth. CPAP Continue BiPAP with new settings: @ 14/8 cm of water with humidification. No new equipment is needed. aspirin, enteric coated (ASPIRIN, ENTERIC COATED) 81 mg EC tablet Take 81 mg by mouth once daily. IRON, FERROUS SULFATE, ORAL Take by mouth once daily. ASCORBIC ACID (VITAMIN C ORAL) Take by mouth once daily. buPROPion (WELLBUTRIN) 75 mg tablet Take 150 mg by mouth twice daily. REVIEW OF SYSTEMS: +joint pains, denies constipation, denies diarrhea Physical (more content not included)... [facility] 08-15-2024 [facility] Telephone (LINDA) ZAYDA DE LA VEGA ([id number]) 1950 M Date Time Provider Department 08/15/24 EDINSON ZARATE During your visit today, we recorded the following information about you: Sienna Inman LPN 08/15/2024 8:50 AM Signed Received [facility] eye visit summary from [facility]. Placed in provider's inbox for review. Route to MA scanning Allergies As of Date: 08/15/2024 Noted Allergy Reaction ASPARTAME 03/06/2011 7 - Swelling Comments: Pt gets burning sensation under skin BETADINE (POVIDONE-IODINE) 04/09/2013 2 - Rash Comments: Blister CYMBALTA (DULOXETINE) 09/08/2023 14 - Other: See Comments Comments: Sweating LISINOPRIL 01/14/2022 3 - Cough Comments: Cough LOSARTAN 09/09/2021 3 - Cough NIACIN 01/18/2011 14 - Other: See Comments Comments: Niacin-Dermid Burning pain all over PENICILLINS 12/10/2003 2 - Rash SEASONAL ALLERGIES 09/05/2013 14 - Other: See Comments Comments: GRASS POLLEN-positive skin test 09-05-13 SUDAFED (PSEUDOEPHEDRINE HCL) 01/18/2011 14 - Other: See Comments Comments: Difficulty swallowing, swelling of tongue AND lips TAMIFLU (OSELTAMIVIR PHOSPHATE) 02/11/2014 12 - Shortness of Breath Comments: SOB, arm pain TRAZODONE 03/05/2020 12 - Shortness of Breath ULTRAM (TRAMADOL) 03/21/2013 Comments: Per patient contraindication due to wellbutrin Date Reviewed: 08/08/2024 Reviewed by: Montse Saenz OCCA - Fully Assessed Reason for Visit: Received Outside Medical Records [[id number]] Cmt: [facility] Prescriptions as of 08/15/2024 - predniSONE (DELTASONE) 10 mg tablet Take 1 tablet by mouth two times a day. - pregabalin (LYRICA) 225 mg capsule Take 1 capsule by mouth two times a day for 90 days. - HYDROcodone-acetaminophen (NORCO) 5-325 mg per tablet Take 1 tablet by mouth every 8 hours as needed for pain for up to 30 days. Patient should start on August 11, 2024. - amLODIPine (NORVASC) 5 mg tablet Take 1 tablet by mouth once daily. - pseudoephedrine HCl (PSEUDOEPHEDRINE NASAL DECON ORAL) Take by mouth. - guaiFENesin (MUCINEX) 1,200 mg Ta12 Take 1 tablet by mouth two times a day. - albuterol HFA (VENTOLIN HFA) 90 mcg/actuation inhaler Inhale 2 Puffs as instructed every 4 hours as needed. - metFORMIN ER (GLUCOPHAGE XR) 500 mg 24 hr tablet Take one tablet daily with breakfast for 7 days, then increase to one tablet twice daily with breakfast and dinner. - azelastine 0.1% nasal spray Use 1 [place] in each nostril two times a day. - meloxicam (MOBIC) 15 mg tablet take 1 tablet once daily - fexofenadine (ANÍBAL) 180 mg tablet Take 1 tablet by mouth once daily. - fluticasone-salmeterol (ADVAIR DISKUS) 250-50 mcg/dose inhaler Inhale 1 Puff as instructed two times a day. - tamsulosin (FLOMAX) 0.4 mg Take 1 capsule by mouth daily at bedtime. - CPAP/BIPAP/OTHER Replacement autobipap 20/06 with PS of 5cmH2O DME [employer] - hydrOXYchloroQUINE (PLAQUENIL) 200 mg tablet Take 1 tablet by mouth two times a day. - fluticasone (FLONASE) 50 mcg/actuation nasal spray USE 2 SPRAYS IN EACH NOSTRIL ONCE DAILY - metoprolol succinate ER (TOPROL XL) 25 mg 24 hr tablet Take 2 tablets by mouth once daily. - guaiFENesin (MUCINEX) 600 mg 12 hr tablet Take 1,200 mg by mouth twice daily as needed for cold/allergy symptoms. - fish oil/borage/flax/om3,6,9 1 (OMEGA 3-6-9 ORAL) Take by mouth. - alpha lipoic acid (LIPOIC ACID ORAL) Take by mouth. - ZINC ORAL Take by mouth. - LYSINE ORAL Take by mouth. - CPAP Continue BiPAP with new settings: @ 14/8 cm of water with humidification. No new equipment is needed. - aspirin, enteric coated (ASPIRIN, ENTERIC COATED) 81 mg EC tablet Take 81 mg by mouth once daily. - IRON, FERROUS SULFATE, ORAL Take by mouth once daily. - ASCORBIC ACID (VITAMIN C ORAL) Take by mouth once daily. - buPROPion (WELLBUTRIN) 75 mg tablet Take 150 mg by mouth twice daily. 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] 03/27/2008 BENIGN NEOPLASM LG BOWEL [D12.6] 06/26/2008 DIVERTICULOSIS OF COLON W/O BLEED [K57.30] 06/26/2008 INT HEMORRHOID W/O COMPL [K64.8] 06/26/2008 Peripheral neuropathy, idiopathic [G60.9] 01/18/2011 06/13/2017 Hip replacement 03/10/2011 Anemia [D64.9] 03/10/2011 01/20/2024 Fever [R50.9] 03/10/2011 06/13/2017 Anxiety [F41.9] 03/10/2011 Shoulder pain [M25.519] 05/11/2012 09/06/2023 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 Normal [facility] XR Lumbar spine Views W flex ion and W extensionon 08-09-2024 IMPRESSION: 1. No acute fracture. 2. Multilevel degenerative changes. 3. Surgical hardware is intact Integration Lead[facility] Trans[facility] Date/Time: Aug 09 2024 2:23P Dictated by : GAVIN LUCERO MD This examination was interpreted and the report reviewed and electronically signed by: GAVIN LUCERO MD on Aug 09 2024 2:31PM [facility] DIVISION OF RADIOLOGY * * *Final Report* * * DATE OF EXAM: Aug 03 2024 3:47PM [id number] - XR LUMBAR 4V AP/LAT/ FLEX/EXT / PROCEDURE REASON: multiple diagnoses * * * * Physician Interpretation * * * * EXAMINATION: XR LUMBAR 4V AP/LAT/ FLEX/EXT CLINICAL HISTORY: Chronic bilateral back pain Technique: XR LUMBAR 4V AP/LAT/ FLEX/EXT -- with 4 views on 4 images Comparison: X-ray 06/30/2016 RESULT: 5 lumbar type vertebral bodies with the L4-5 disc space at level iliac crest. Vertebral body heights are maintained without acute fracture. Mild dextrocurvature. Mild anterolisthesis of L3 on L4. Mild retrolisthesis of L1 on L2. Grade 1/2 anterolisthesis of L5 on S1. No significant change with flexion or extension. Moderate multilevel degenerative changes with disc height loss and osteophyte formation. Facet arthropathy. Posterior fusion of L5-S1 with pedicle screws and rods. Surgical hardware is intact. Degenerative changes of SI joints. Right hip arthroplasty. DIVISION OF RADIOLOGY Provider, [facility] Cassidy Story - 08/09/2024 * * *Final Report* * * DATE OF EXAM: Aug 03 2024 3:47PM [id number] - XR LUMBAR 4V AP/LAT/ FLEX/EXT / PROCEDURE REASON: multiple diagnoses * * * * Physician Interpretation * * * * EXAMINATION: XR LUMBAR 4V AP/LAT/ FLEX/EXT CLINICAL HISTORY: Chronic bilateral back pain Technique: XR LUMBAR 4V AP/LAT/ FLEX/EXT -- with 4 views on 4 images Comparison: X-ray 06/30/2016 RESULT: 5 lumbar type vertebral bodies with the L4-5 disc space at level iliac crest. Vertebral body heights are maintained without acute fracture. Mild dextrocurvature. Mild anterolisthesis of L3 on L4. Mild retrolisthesis of L1 on L2. Grade 1/2 anterolisthesis of L5 on S1. No significant change with flexion or extension. Moderate multilevel degenerative changes with disc height loss and osteophyte formation. Facet arthropathy. Posterior fusion of L5-S1 with pedicle screws and rods. Surgical hardware is intact. Degenerative changes of SI joints. Right hip arthroplasty. IMPRESSION IMPRESSION: 1. No acute fracture. 2. Multilevel degenerative changes. 3. Surgical hardware is intact Integration Lead[facility] Trans[facility] Date/Time: Aug 09 2024 2:23P Dictated by : GAVIN LUCERO MD This examination was interpreted and the report reviewed and electronically signed by: GAVIN LUCERO MD on Aug 09 2024 2:31PM EST [facility] XR Lumbar spine Views W flex ion and W extensionOrdered By: [facility] Provider on 08-09-2024 [facility] C-REACTIVE PROTEINon 024 CRP [Mass/Vol] 0.4 mg/dL [facility] - 0.9 mg/dL [facility] CBC W Auto Differential pane l (Bld)on 08-08-2024 Basophils (Bld) [#/Vol] 0.06 10*3/uL [facility] Basophils/100 WBC (Bld) 0.8 % [facility] Differential cell count method Nom (Bld) Auto [facility] Eosinophils (Bld) [#/Vol] 0.25 10*3/uL [facility] Eosinophils/100 WBC (Bld) 3.2 % [facility] Erythrocyte distribution width (RBC) [Ratio] 13.7 % 11.5 - 15.0 % [facility] Hematocrit (Bld) [Volume fraction] 43.0 % 39.0 - 51.0 % [facility] Hemoglobin (Bld) [Mass/Vol] 14.0 g/dL 13.0 - 17.0 g/dL [facility] Immature granulocytes (Bld) [#/Vol] 0.05 10*3/uL [facility] Immature granulocytes/100 WBC (Bld) 0.6 % [facility] Interpretation and review of laboratory results Abnormal [facility] Lymphocytes (Bld) [#/Vol] 3.74 10*3/uL [facility] Lymphocytes/100 WBC (Bld) 48.3 % [facility] MCH (RBC) [Entitic mass] 30.4 pg 26.0 - 34.0 pg [facility] MCHC (RBC) [Mass/Vol] 32.6 g/dL 30.5 - 36.0 g/dL [facility] MCV (RBC) [Entitic vol] 93.3 fL 80.0 - 100.0 fL [facility] Monocytes (Bld) [#/Vol] 0.61 10*3/uL [facility] Monocytes/100 WBC (Bld) 7.9 % [facility] Neutrophils (Bld) [#/Vol] 3.03 10*3/uL [facility] Neutrophils/100 WBC (Bld) 39.2 % [facility] Nucleated RBC (Bld) [#/Vol] NINF [facility] Nucleated RBC/100 WBC (Bld) [Ratio] 0.0 % /100 WBC [facility] Platelet mean volume (Bld) [Entitic vol] 8.8 fL Low 9.0 - 12.7 fL [facility] Platelets (Bld) [#/Vol] 302 10*3/uL [facility] RBC (Bld) [#/Vol] 4.61 10*6/uL 4.20 - 6.0 0 m/uL [facility] WBC (Bld) [#/Vol] 7.74 10*3/uL [facility] CREATININE BLDon 08-08-2024 Creatinine [Mass/Vol] 0.86 mg/dL 0.73 - 1.22 mg/dL [facility] GFR/1.73 sq M.predicted among non-blacks MDRD (S/P/Bld) [Vol rate/Area] 90 mL/min/{1.73_m2} - PINF [facility] Comment on above: Estimated Glomerular Filtration Rate (eGFR) is calculated using the 2020 CKD-EPI creatinine equation. This equation utilizes serum creatinine, sex, and age as parameters. The creatinine assay has traceable calibration to isotope dilution-mass spectrometry. Refer to KDIGO guidelines for clinical interpretation. In patients with unstable renal function, e.g. those with acute kidney injury, the eGFR may not accurately reflect actual GFR. No Panel Informationon 08-08 Interpretation and review of laboratory results Normal [facility] XR Lumbar spine Views W flex ion and W extensionon 08-03-2024 Radiology Study observation (narrative) [facility] No Panel Informationon 06-29 [facility] [address] [facility] [place] [address] Test Date: 2024-06-29 Pat Name: ZAYDA DE LA VEGA Department: Room: Gender: Male Snow Removal/Plowing: : 1950 Requested By: Order Number: [id number] Reading MD: Loraine Holcomb MD Interpretive Statements Current ATS/ERS acceptability and repeatability standards for spirometry met. Start of test and EOFE criteria met. Current ATS/ERS acceptability and repeatability standards for DLCO met with 2 acceptable maneuvers. SP- Medications and Allergies were reviewed for possible drug interactions per policy. No contraindications or sensitivities were noted. Meds taken: no respiratory medications taken before testing. IMPRESSION: Spirometry is normal. The diffusion capacity (uncorrected for hemoglobin) is normal. Electronically Signed On 06-29-2024 13:53:10 EDT by Loraine Holcomb MD ID: [id number] Name: ZAYDA DE LA VEGA Race: White Ht: 67.32 in Wt: 287.00 lbs Age: 73 Gender: Male : 1950 Dx: Shortness of breath Smoking Hx: Non-smoker Doctor: ADILIA AUGUSTE Test Date: 06/29/2024 Site: JEAN Geiger: Abida Jack PRE-BRONCH POST-BRONCH Pre LLN Pred ULN %Pred Post %Pred %Chg SPIROMETRY FVC (L) 3.07 2.60 3.52 4.44 87 FEV1 (L) 2.31 1.92 2.64 3.32 87 FEV1/FVC 0.75 0.63 0.77 0.88 98 PEF L/s (L/sec) 6.65 5.04 7.18 9.32 92 FEF50 (L/sec) 2.83 1.27 3.39 5.52 83 FIF50 (L/sec) 1.90 FEF50/FIF50 1.49 90-100 FIVC (L) 2.61 YGL26-02 (L/sec) 1.84 0.83 2.06 3.84 89 Time (sec) 7.41 FET PEF (sec) 0.10 PAWEL (L) 0.14 Vol Extrap % (%) 4 LUNG DIFFUSION DLCOunc (ml/min/mmHg) 19.22 13.83 23.76 33.70 80 VA (L) 5.06 4.94 6.30 7.67 80 DLunc/VA (ml/min/mmHg/L) 3.79 2.72 3.92 5.12 96 BHT (sec) 10.44 IVC (L) 3.02 Comments: Current ATS/ERS acceptability and repeatability standards for spirometry met. Start of test and EOFE criteria met. Current ATS/ERS acceptability and repeatability standards for DLCO met with 2 acceptable maneuvers. SP- Medications and Allergies were reviewed for possible drug interactions per policy. No contraindications or sensitivities were noted. Meds taken: no respiratory medications taken before testing. PULMONARY FUNCTION LAB [facility] OXIMETRY WITH AMBULATIONon 0 06-29-2024 Abida Jack RPF T 06/29/2024 11:13 AM RESPIRATORY THERAPY OXIMETRY WITH AMBULATION Oximetry with Ambulation Test for This Encounter O2 Device O2 Adapter NC O2 Flow SpO2% HR Activity Ft Walked (ft) Time (min) Avg Speed (MPH) R/A 93 60 Resting R/A 91 93 Walking, usual pace 360 3 1.36 R/A 90 94 Walking, fastest pace 400 3 1.52 General Information Pulse Oximetry Site Total Time Spent Walking Assistance/O2 Supply Carrier L Index Finger 30 None NAME: Abida PetESTEFANY sanderson PATIENT NAME: Zayda De La Vega DATE: June 29, 2024 TIME: 11:13 AM Comment: [facility] SPIROMETRY WITH DILATOR IF O BSTRUCTEDon 06-29-2024 DLCO (ml/min/mmHg) 19.22 ml/min/mmHg [facility] DLCO LLN (ml/min/mmHg) 13.83 ml/min/mmHg [facility] DLCO PREDICTED (ml/min/mmHg) 23.76 ml/min/mmHg [facility] DLCO ULN (ml/min/mmHg) 33.70 ml/min/mmHg [facility] DLCO/VA (ml/min/mmHg/L) 3.79 ml/min/mmHg /L [facility] DLCO/VA PREDICTED (ml/min/mmHg/L) 3.92 ml/min/mmHg /L [facility] DLCOcor PREDICTED (ml/min/mmHg) 23.76 ml/min/mmHg [facility] ERV PREDICTED (L) 1.17 L/S [facility] FEF25% PRE (L/S) 4.99 L/S [facility] [id number]% LLN (L/S) 0.83 L/S [facility] IQR81-31% PRE (L/S) 1.84 L/S [facility] [id number]% PREDICTED (L/S) 2.06 L/S [facility] FEF75% LLN (L/S) 0.18 L/S [facility] FEF75% PRE (L/S0 0.61 L/S [facility] FEF75% PREDICTED (L/S) 0.52 L/S [facility] FEF75% ULN (L/S) 1.42 L/S [facility] FET PRE (S) 7.41 S [facility] FEV1 LLN (L) 1.92 L [facility] FEV1 PRE (L) 2.31 L [facility] FEV1 PREDICTED (L) 2.64 L [facility] FEV1 ULN (L) 3.32 L [facility] FEV1/FVC LLN (%) 63 % [facility] FEV1/FVC PRE (%) 75 % [facility] FEV1/FVC PREDICTED (%) 77 % [facility] FVC LLN (L) 2.60 L [facility] FVC PRE (L) 3.07 L [facility] FVC PREDICTED (L) 3.52 L [facility] FVC ULN (L) 4.44 L [facility] IC PREDICTED (L) 2.34 L/S [facility] PEF LLN (L/S) 5.04 L/S [facility] PEF PRE (L/S) 6.65 L/S [facility] PEF ULN (L/S) 9.32 L/S [facility] SVC LLN (L) 2.60 L/S [facility] SVC PREDICTED (L) 3.52 L/S [facility] SVC ULN (L) 4.44 L/S [facility] VA (L) 5.06 L [facility] VA PREDICTED (L) 6.30 L [facility] C3 COMPLEMENTon 04-26-2024 Complement C3 [Mass/Vol] 153 mg/dL 86 - 166 mg/dL [facility] C4 COMPLEMENTon 04-26-2024 Complement C4 [Mass/Vol] 26 mg/dL 13 - 46 mg/dL [facility] CREATINE KINASE/CKon 024 CK [Catalytic activity/Vol] 199 U/L 51 - 298 U/L [facility] DNA double strand Ab IA Qn ( S)Ordered By: Lynsey Avendaño on 04-26-2024 DNA Antibody 358 High NINF [facility] Comment on above: Negative: <200 IU/mL Equivocal: 201-300 IU/mL Moderate Positive: 301-800 IU/mL Strong Positive: >801 IU/mL DNA Antibody Qualitative Interpretation Positive Abnormal Negative [facility] Interpretation and review of laboratory results Abnormal [facility] This test is used as an aid in diagnosis of systemic lupus erythematous in patients with positive anti-nuclear antibody (PRANAY) test result. It may also be used for prognostication and monitoring response to treatment where clinically warranted. Results were obtained with the QUANTA Lite dsDNA LUKE. Double-stranded DNA values obtained with different manufacturers' assay methods should not be used interchangeably. [facility] No Panel Informationon 04-26 Interpretation and review of laboratory results Normal [facility] Urinalysis complete panel (U )on 04-25-2024 Bacteria LM.HPF (Urine sed) [#/Area] Negative Negative /HPF [facility] Bilirubin Ql (U) Negative Negative [facility] Clarity (Unsp spec) Clear Clear [facility] Color (U) Yellow Yellow [facility] Epithelial cells LM.HPF (Urine sed) [#/Area] None Seen /HPF [facility] Glucose Test strip (U) [Mass/Vol] Negative Negative [facility] Hemoglobin Ql (U) Negative Negative [facility] Hyaline casts (Urine sed) [#/Area] 0 /[LPF] 0 /LPF [facility] Ketones Ql (U) Negative Negative [facility] Leukocyte esterase Test strip Ql (U) Negative Negative [facility] Nitrite Ql (U) Negative Negative [facility] pH (U) 6.5 [pH] NINF - 8.5 [facility] Protein (U) [Mass/Vol] Negative Negative [facility] RBC LM.HPF (Urine sed) [#/Area] 0-2 /HPF 0-2 /HPF [facility] Specific gravity (U) [Rel density] 1.014 1.005 - 1.030 [facility] Urobilinogen Ql (U) 0.2 EU/dL 0.2-1.0 EU/dL [facility] WBC LM.HPF (Urine sed) [#/Area] 0-5 /HPF 0-5 /HPF [facility] This test was tonia seymour and its performance characteristics determined by [facility]'s [facility] [place] [facility] It has not been cleared or approved by the FDA. [facility] is regulated under CLIA as qualified to perform high-complexity testing. This test is used for clinical purposes. It should not be regarded as investigational or for research. [facility] NITRIC OXIDE, EXHALEDon 07-0 Adam Arrington, SOLUTION STRATEGIST 04/10/2024 1:46 PM RESPIRATORY THERAPY ORAL EXHALED NITRIC OXIDE SERVICE DATE: 04/10/2024 SERVICE TIME: 1:46 PM Oral Exhaled Nitric Oxide measurement: 18.0 (ppb) Normal: Adult <25 ppb, pediatric (<12 years) <20 ppb High Normal / Increased: Adult 25-50 ppb, pediatric (<12 years) 20-35 ppb Moderately raised exhaled Nitric Oxide may indicate underlying inflammation, but note that: Cold and influenza can raise exhaled Nitric Oxide and some patients have higher baseline exhaled Nitric Oxide levels than others. High: Adult >50 ppb, pediatric (<12 years) >35 ppb Indicative of ongoing eosinophilic inflammation. Symptomatic patient likely to respond to steroids. Possible causes (if already on steroids): Poor compliance, recent allergen exposure, steroid dose inadequate, and steroid resistance. Note that not all patients with high exhaled nitric oxide levels display symptoms. 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 ZAYDA DE LA VEGA Age: 73 years Gender: M CONCLUSIONS: 1. Not Consistent with TTR amyloidosis 2. Degenerative changes * Please note that a negative or mildly positive study does not exclude AL amyloid. In addition, equivocal results could represent AL amyloid or early ATTR. We suggest concomitant workup of AL amyloid with laboratory testing and pathologic assessment as appropriate. Nuclear Med Report: PLANAR and SPECT: Myocardial imaging of the chest with CT attenuation correction was performed at 3 hours post IV injection of the radiopharmaceutical. See administered doses below. [facility] Date of service: 03/22/2024 2:16:13 PM Indication: Suspected Amyloid Heart Disease Interpreting physician: Kenya Monsalve MD Height: 0.00 cm BSA: 0.00 m Weight: 0.00 kg BMI: CT Dose-Length Product(DLP): 85.1 mGy * cm. CT Dose Reduction Employed: Yes. Exam Type: Rest Study Date: 03/22/2024 Radiopharm: 99m Technetium-HDP Dosage(mCi): 23.3 Injection Time: 11:00:00 AM Atten Correction: performed Time Interval: 3.0 hours Image Quality The overall study imaging quality was deemed to be good. CARDIAC FINDINGS: PLANAR: Visual Comparison to Bone: Grade 1 = Uptake less than rib uptake (equivocal-may be consistent with AL or ATTR) SPECT: Uptake Pattern: Persisent Blood Pool NON CARDIAC FINDINGS: Degenerative changes Summary: Not Consistent with TTR amyloidosis * Please note that a negative or mildly positive study does not exclude AL amyloid. In addition, equivocal results could represent AL amyloid or early ATTR. We suggest concomitant workup of AL amyloid with laboratory testing and pathologic assessment as appropriate. * * * Final * * * NM CTAC Report: [facility] Date of service: 03/22/2024 2:16:13 PM CTAC interpreting physician: Anastacia Renteria MD PATIENT: Name: MR. ZAYDA DE LAV EGA Age: 73 years Gender: M 1. Incidental Findings from limited non-diagnostic CTAC: - Coronary calcifications visualized. Bilateral humeral prosthesis * * * Final * * * RP Integration Lead: [employer] Transcribe Date/Time: Mar 22 2024 2:16P Dictated by : KENYA MONSALVE MD This examination was interpreted and the report reviewed and electronically signed by: KENYA MONSALVE MD on Mar 22 2024 3:57PM [facility] RADIOLOGY Provider, [facility] - 03/22/2024 * * *Final Report* * * DATE OF EXAM: Mar 22 2024 2:52PM OG 0847 - NM CARDIAC AMYLOID SPECT/CT / PROCEDURE REASON: E85.8-Tbmxd-oopcsov amyloidosis (HCC) * * * * Physician Interpretation * * * * Patient: Name: MR. ZAYDA DE LA VEGA Age: 73 years Gender: M CONCLUSIONS: 1. Not Consistent with TTR amyloidosis 2. Degenerative changes * Please note that a negative or mildly positive study does not exclude AL amyloid. In addition, equivocal results could represent AL amyloid or early ATTR. We suggest concomitant workup of AL amyloid with laboratory testing and pathologic assessment as appropriate. Nuclear Med Report: PLANAR and SPECT: Myocardial imaging of the chest with CT attenuation correction was performed at 3 hours post IV injection of the radiopharmaceutical. See administered doses below. [facility] Date of service: 03/22/2024 2:16:13 PM Indication: Suspected Amyloid Heart Disease Interpreting physician: Kenya Monsalve MD Height: 0.00 cm BSA: 0.00 m Weight: 0.00 kg BMI: CT Dose-Length Product(DLP): 85.1 mGy * cm. CT Dose Reduction Employed: Yes. Exam Type: Rest Study Date: 03/22/2024 Radiopharm: 99m Technetium-HDP Dosage(mCi): 23.3 Injection Time: 11:00:00 AM Atten Correction: performed Time Interval: 3.0 hours Image Quality The overall study imaging quality was deemed to be good. CARDIAC FINDINGS: PLANAR: Visual Comparison to Bone: Grade 1 = Uptake less than rib uptake (equivocal-may be consistent with AL or ATTR) SPECT: Uptake Pattern: Persisent Blood Pool NON CARDIAC FINDINGS: Degenerative changes Summary: Not Consistent with TTR amyloidosis * Please note that a negative or mildly positive study does not exclude AL amyloid. In addition, equivocal results could represent AL amyloid or early ATTR. We suggest concomitant workup of AL amyloid with laboratory testing and pathologic assessment as appropriate. * * * Final * * * NM CTAC Report: [facility] Date of service: 03/22/2024 2:16:13 PM CTAC interpreting physician: Anastacia Renteria MD PATIENT: Name: MR. ZAYDA DE LA VEGA Age: 73 years Gender: M 1. Incidental Findings from limited non-diagnostic CTAC: - Coronary calcifications visualized. Bilateral humeral prosthesis * * * Final * * * RP Integration Lead: DEEPTHI Transcribe Date/Time: Mar 22 2024 2:16P Dictated by : KENYA MONSALVE MD This examination was interpreted and the report reviewed and electronically signed by: KENYA MONSALVE MD on Mar 22 2024 3:57PM EST [facility] Radiology Study observation (narrative) [facility] SPECT Heart for infarct W Tc -99m PYP IVOrdered By: [facility] Provider on 03-22-2024 [facility] GLUCOSE, BLOOD (POC)on 03-14 Glucose [Mass/Vol] 116 mg/dL Abnormal 74 - 99 mg/dL [facility] Comment on above: Location:[address], [facility] The Accu-Chek Inform II glucose meter has not been approved for testing on patients receiving intensive medical intervention or therapy and results from this point of care glucose test should not be used for patient management decisions in these cases. Inaccurate results may also occur from other interfering factors, such as N-acetylcysteine (blood concentrations of greater than 5mg/dL), galactose, extremes of hematocrit (<10 or >65), or high doses of ascorbic acid (vitamin C) greater than 3mg/dL. Consider alternate testing mechanisms (e.g. core lab, blood gas instrument) in the above situations. Interpretation and review of laboratory results Abnormal [facility] CT Neck W contrast Giancarlo IMPRESSION: No neck mass or cervical lymphadenopathy by size criteria. 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 Integration Lead: [facility] Transcribe Date/Time: Mar 06 2024 10:59A Dictated by : JARROD MEJIA MD This examination was interpreted and the report reviewed and electronically signed by: JARROD MEJIA MD on Mar 06 2024 11:07AM EST DIVISION OF RADIOLOGY * * *Final Report* * * DATE OF EXAM: Mar 06 2024 10:05AM [facility] 0013 - CT NECK SOFT TISSUE W IVCON / PROCEDURE REASON: NECK W * * * * Physician Interpretation * * * * CT NECK SOFT TISSUE W IVCON History: Right clavicular head mass. Comparison: Whole body CT 07/05/2022 Technique: A series of contiguous helical scans were performed from the skull base to the aortic arch with intravenous contrast. Contrast: Omnipaque 350. Contrast Dose: 100 cc Route of Administration: IV CT Radiation dose: Integrated Dose-length product (DLP) for this visit = 888 mGy*cm. CT Dose Reduction Employed: Automated exposure control(AEC) and iterative recon RESULT: Examination is marred due to streak artifact from patient's bilateral shoulder arthroplasties. Postoperative change: None apparent. Suprahyoid Neck: Nasopharynx and oropharynx appear normal. Parapharyngeal tissue planes are preserved. Oral cavity and floor of mouth appear normal within constraints of artifact from dental amalgam. Parotid and submandibular spaces are normal. Fermenter Helper spaces appear normal. Infrahyoid Neck: Hypopharynx, larynx, and imaged infraglottic trachea appear normal. Imaged upper esophagus is unremarkable. Thyroid gland is homogeneous without evidence of discrete nodule. Lymph Nodes: No cervical lymphadenopathy by size criteria. Carotid Space: No masses. Patent extracranial carotid systems and internal jugular veins bilaterally, with mild atherosclerosis in the right carotid bulb. Orbits, Face and Skull Base: Orbital soft tissue planes are preserved. Paranasal sinuses are clear. Mastoid air cells and middle ear cavities are clear. No evidence of an osteolytic or osteoblastic process in the skull base. Imaged intracranial contents: No abnormal intracranial enhancement, mass effect, or hydrocephalus. Cervical spine and remaining osseous structures: No discrete osteolytic or osteoblastic process. Mild spondylotic changes in the visualized spine. Lung apices: Imaged lung apices are clear of focal consolidation or mass. 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 DIVISION OF RADIOLOGY Provider, [facility] - 03/06/2024 * * *Final Report* * * DATE OF EXAM: Mar 06 2024 10:05AM [facility] 0013 - CT NECK SOFT TISSUE W IVCON / PROCEDURE REASON: NECK W * * * * Physician Interpretation * * * * CT NECK SOFT TISSUE W IVCON History: Right clavicular head mass. Comparison: Whole body CT 07/05/2022 Technique: A series of contiguous helical scans were performed from the skull base to the aortic arch with intravenous contrast. Contrast: Omnipaque 350. Contrast Dose: 100 cc Route of Administration: IV CT Radiation dose: Integrated Dose-length product (DLP) for this visit = 888 mGy*cm. CT Dose Reduction Employed: Automated exposure control(AEC) and iterative recon RESULT: Examination is marred due to streak artifact from patient's bilateral shoulder arthroplasties. Postoperative change: None apparent. Suprahyoid Neck: Nasopharynx and oropharynx appear normal. Parapharyngeal tissue planes are preserved. Oral cavity and floor of mouth appear normal within constraints of artifact from dental amalgam. Parotid and submandibular spaces are normal. Fermenter Helper spaces appear normal. Infrahyoid Neck: Hypopharynx, larynx, and imaged infraglottic trachea appear normal. Imaged upper esophagus is unremarkable. Thyroid gland is homogeneous without evidence of discrete nodule. Lymph Nodes: No cervical lymphadenopathy by size criteria. Carotid Space: No masses. Patent extracranial carotid systems and internal jugular veins bilaterally, with mild atherosclerosis in the right carotid bulb. Orbits, Face and Skull Base: Orbital soft tissue planes are preserved. Paranasal sinuses are clear. Mastoid air cells and middle ear cavities are clear. No evidence of an osteolytic or osteoblastic process in the skull base. Imaged intracranial contents: No abnormal intracranial enhancement, mass effect, or hydrocephalus. Cervical spine and remaining osseous structures: No discrete osteolytic or osteoblastic process. Mild spondylotic changes in the visualized spine. Lung apices: Imaged lung apices are clear of focal consolidation or mass. 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 IMPRESSION IMPRESSION: No neck mass or cervical lymphadenopathy by size criteria. 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 Integration [facility] Transcribe Date/Time: Mar 06 2024 10:59A Dictated by : JARROD MEJIA MD This examination was interpreted and the report reviewed and electronically signed by: JARROD MEJIA MD on Mar 06 2024 11:07AM EST [facility] Radiology Study observation (narrative) [facility] CT Neck W contrast IVOrdered By: [facility] Provider on 03-06-2024 [facility] ECG COMPLETEon 02-29-2024 Atrial Rate 59 BPM [facility] Calculated P [place] 38 degrees [facility] Calculated R [place] -73 degrees [facility] Calculated T Fertile 22 degrees [facility] P-R Interval 228 ms [facility] QRS Duration 172 ms [facility] QT Interval 464 ms [facility] QTC Calculation (Bazett) 459 ms [facility] Ventricular Rate 59 BPM [facility] SINUS BRADYCARDIA WI TH 1ST DEGREE A-V BLOCK RIGHT BUNDLE BRANCH BLOCK LEFT ANTERIOR FASCICULAR BLOCK BIFASCICULAR BLOCK ABNORMAL ECG NO PREVIOUS ECGS AVAILABLE Confirmed by MD GORDON QARAB ([id number]) on 02/29/2024 3:50:09 PM [facility] NAME : ZAYDA DE LA VEGA PID : [id number] : 1950 Gender : Male Race : ORD : [id number] Procedure Date : Feb 29 2024 14:19:05 Edit Date : Feb 29 2024 15:50:10 Diagnosis: SINUS BRADYCARDIA WITH 1ST DEGREE A-V BLOCK RIGHT BUNDLE BRANCH BLOCK LEFT ANTERIOR FASCICULAR BLOCK BIFASCICULAR BLOCK ABNORMAL ECG NO PREVIOUS ECGS AVAILABLE Confirmed by MD GORDON QARAB ([id number]) on 02/29/2024 3:50:09 PM Test Reason : Other - Specify Location : 0 : CARD Overread By : MD GORDON QARAB Edited By : MD GORDON QARAB Referred By : NATALIE CHONG Acquired by : Lea Boss CPD [facility] BONE MARROW BIOPSYon 024 Keri Wagner APRN.CNP 02/28/2024 9:47 AM BONE MARROW BIOPSY Date/Start Time: 02/28/2024 9:17 AM Date/Stop Time: 02/28/2024 9:38 AM Performed by: Keri Wagner APRN.DISTRICT RESOURCE OFFICER Authorized by: Keri Wagner APRN.CNP Where was Patient When this Procedure was Performed [facility] Informed Consent Consent Obtained: Written [place] Protocol A moment to CARE was completed. SIGN IN Personnel directly involved with the procedure wore the appropriate PPE. Special Equipment: Yes (OnControl) Patient/Surrogate Stated/Verified: Patient name, Date of , Relevant allergies and Intended procedure TIME OUT Intended patient and procedure match the source document(s). Consent documented and matches the intended procedure. Relevant labs, photos, and/or imaging studies have been reviewed. Correct side/site marked and visible. Medications required for procedure verified. No fire risk assessment and interventions applicable. No implant(s) inserted. Pre-Procedure Details: The area was prepped with chlorhexidine (Chloroprep) and allowed to dry. A sterile partial body drape was applied following the usual aseptic technique. Medications: Analgesia Sedation CCHS: Tylenol. Local Anesthesia (see MAR): Lidocaine 2% (9 ml) Anxiolysis (see MAR): Lorazapem Procedure Details: Patient Position: Right lateral decubitus Aspiration Laterality: Unilateral Aspiration Site: Left posterior superior iliac crest Biopsy Laterality: Unilateral Biopsy Site: Left posterior superior iliac crest FMS [place] biopsy system was used. Using aseptic technique, bone marrow aspiration was performed. A touch prep was taken. Core biopsy was obtained 1.8 cm. The core biopsy was confirmed. Number of External Insertion Sites: 1 Pressure dressing applied to Bone Marrow site(s). Hemostasis maintained. Assisting Clinician(s): Eliana Ross APRN.DISTRICT RESOURCE OFFICER performed the entire procedure under my direct supervision. Dr. Box observed. Post-Procedure Details: Patient Tolerance: Patient tolerated the procedure well with no immediate complications Estimated Blood Loss: scant Specimens Sent: bone marrow analysis, bone marrow chromosome analysis, DNA extraction and flow cytometry (FISH for plasma cell myeloma) Teaching Complete: Bone Marrow Biopsy Post-procedure teaching complete Post-procedure care was reviewed and explained. Patient instructed to communicate complaints of redness, swelling, increased or unresolved pain, bleeding chills, bruising, and/or fever. Patient verbalized understanding. SIGN OUT All specimen containers correctly labeled. All instruments, equipment, possible retained foreign bodies accounted for. 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 [facility] FLOW CYTOMETRY FOR LEUKEMIA/ LYMPHOMA (FCLL) PERFORMABLEOrdered By: Janny Thayer on 02-28-2024 Flow Cytometry Order Status See Results in chart under F case ID [facility] EMG(NEURO/NI)on 08-19-2023 [facility] XR Hand - bilateral PA and L ateral and Obliqueon 08-02-2023 IMPRESSION: Findings as discussed under Results portion of report. Integration Lead: VINCENT Transcribe Date/Time: Aug 02 2023 9:39A Dictated by : JOANNE HIGHTOWER DO This examination was interpreted and the report reviewed and electronically signed by: JOANNE HIGHTOWER DO on Aug 02 2023 9:44AM EST [facility] * * *Final Report* * * DATE OF EXAM: Aug 02 2023 8:57AM MDO 5556 - XR HAND 3V PA/LAT/OBL ANTOLIN / PROCEDURE REASON: multiple diagnoses * * * * Physician Interpretation * * * * All EXAM(s): XR HAND 3V PA/LAT/OBL ANTOLIN EXAM DATE/TIME: 08/02/2023 8:57 AM HISTORY: 72 years old Clinical information: Bilateral hand pain systemic lupus erythematosus and findings x-rays were and findings x-rays lupus TECHNIQUE: Images: XR HAND 3V PA/LAT/OBL ANTOLIN Comparison: None. RESULT: Findings: Bilateral findings: There is narrowing of all interphalangeal joints. There . is narrowing of the radiocarpal joints. Right :No fractures or dislocations are seen. Left :No fractures or dislocations are seen. [facility] Provider, Denice [facility] - 08/02/2023 * * *Final Report* * * DATE OF EXAM: Aug 02 2023 8:57AM MDO 5556 - XR HAND 3V PA/LAT/OBL ANTOLIN / PROCEDURE REASON: multiple diagnoses * * * * Physician Interpretation * * * * All EXAM(s): XR HAND 3V PA/LAT/OBL ANTOLIN EXAM DATE/TIME: 08/02/2023 8:57 AM HISTORY: 72 years old Clinical information: Bilateral hand pain systemic lupus erythematosus and findings x-rays were and findings x-rays lupus TECHNIQUE: Images: XR HAND 3V PA/LAT/OBL ANTOLIN Comparison: None. RESULT: Findings: Bilateral findings: There is narrowing of all interphalangeal joints. There . is narrowing of the radiocarpal joints. Right :No fractures or dislocations are seen. Left :No fractures or dislocations are seen. IMPRESSION IMPRESSION: Findings as discussed under Results portion of report. Integration Lead: PSCB Transcribe Date/Time: Aug 02 2023 9:39A Dictated by : JOANNE HIGHTOWER DO This examination was interpreted and the report reviewed and electronically signed by: JOANNE HIGHTOWER DO on Aug 02 2023 9:44AM [facility] Radiology Study observation (narrative) [facility] XR Hand - bilateral PA and L ateral and ObliqueOrdered By: Ccf Provider on 08-02-2023 [facility] XR CHEST 2V FRONTAL/LATon [facility] DNA AB DS + CONF BLDon 04-21 DNA double strand Ab IA Qn (S) 51.81 IU/mL High <30 IU/mL [facility] C-REACTIVE PROTEIN (CRP)on 0 04-20-2023 CRP [Mass/Vol] 0.4 mg/dL <0.9 mg/dL [facility] C3 COMPLEMENT [facility] 04-20-20 Complement C3 [Mass/Vol] 149 mg/dL 86 - 166 mg/dL [facility] C4 COMPLEMENT [facility] 04-20-20 Complement C4 [Mass/Vol] 25 mg/dL 13 - 46 mg/dL [facility] Urinalysis complete panel (U )on 04-19-2023 Bilirubin Ql (U) Negative Negative [facility] Clarity (Unsp spec) Clear Clear [facility] Color (U) Colorless Yellow [facility] Glucose Test strip (U) [Mass/Vol] Negative Trace, Negative [facility] Hemoglobin Ql (U) Negative Negative, Trace [facility] Ketones Ql (U) Negative Trace, Negative [facility] Leukocyte esterase Test strip Ql (U) Negative Negative, 25 Edenilson/uL [facility] Nitrite Ql (U) Negative Negative [facility] pH (U) 6.5 [pH] 5.0 - 8.0 [facility] Protein (U) [Mass/Vol] Negative Trace, Negative [facility] RBC LM.HPF (Urine sed) [#/Area] 0-3 /HPF 0-3 /HPF [facility] Specific gravity (U) [Rel density] 1.009 1.005 - 1.030 [facility] Urobilinogen Ql (U) Negative Negative [facility] WBC LM.HPF (Urine sed) [#/Area] 0-5 /HPF 0-5 /HPF [facility] - bilateral AP and L ateral and obliqueon 02-07-2023 IMPRESSION: No acute osseous abnormality. Degenerative disease of bilateral feet. Bilateral pes planus. Integration Lead: VINCENT Transcribe Date/Time: Feb 07 2023 1:30P Dictated by : GAVIOTA PIZARRO MD This examination was interpreted and the report reviewed and electronically signed by: GAVIOTA PIZARRO MD on Feb 07 2023 1:34PM [facility] * * *Final Report* * * DATE OF EXAM: Feb 02 2023 12:47PM MDO 5555 - XR FOOT 3V AP/LAT/OBL ANTOLIN / PROCEDURE REASON: multiple diagnoses * * * * Physician Interpretation * * * * EXAMINATION: XR FOOT 3V AP/LAT/OBL ANTOLIN CLINICAL HISTORY: Bilateral foot pain Technique: XR FOOT 3V AP/LAT/OBL ANTOLIN -- BILATERAL with 3 EACH views on 5 images Comparison: X-ray right foot 05/11/2019 RESULT: Right foot: Pes planus. Naviculocuneiform and tarsometatarsal joint space narrowing with subchondral sclerosis and marginal osteophytes. Mild right first metatarsophalangeal joint space narrowing. No acute fracture or dislocation. Left foot: Pes planus. Naviculocuneiform and tarsometatarsal joint space narrowing with subchondral sclerosis and marginal osteophytes. Small plantar calcaneal spur. No acute fracture or dislocation. [facility] * * *Final Report* * * DATE OF EXAM: Feb 02 2023 12:47PM [facility] 5555 - XR FOOT 3V AP/LAT/OBL ANTOLIN / PROCEDURE REASON: multiple diagnoses * * * * Physician Interpretation * * * * EXAMINATION: XR FOOT 3V AP/LAT/OBL ANTOLIN CLINICAL HISTORY: Bilateral foot pain Technique: XR FOOT 3V AP/LAT/OBL ANTOLIN -- BILATERAL with 3 EACH views on 5 images Comparison: X-ray right foot 05/11/2019 RESULT: Right foot: Pes planus. Naviculocuneiform and tarsometatarsal joint space narrowing with subchondral sclerosis and marginal osteophytes. Mild right first metatarsophalangeal joint space narrowing. No acute fracture or dislocation. Left foot: Pes planus. Naviculocuneiform and tarsometatarsal joint space narrowing with subchondral sclerosis and marginal osteophytes. Small plantar calcaneal spur. No acute fracture or dislocation. IMPRESSION IMPRESSION: No acute osseous abnormality. Degenerative disease of bilateral feet. Bilateral pes planus. Integration Lead: VINCENT Transcribe Date/Time: Feb 07 2023 1:30P Dictated by : GAVIOTA PIZARRO MD This examination was interpreted and the report reviewed and electronically signed by: GAVIOTA PIZARRO MD on Feb 07 2023 1:34PM EST [facility] XR Foot - bilateral AP and L ateral and obliqueOrdered By: Ccf Provider on 02-07-2023 [facility] XR Foot - bilateral AP and L ateral and obliqueon 02-02-2023 Radiology Study observation (narrative) [facility] OXIMETRY WITH AMBULATIONon 1 11-25-2021 [facility] 12 Lead EKGon 08-30-2022 12 Lead EKG [facility] Cardi[facility] Services [address] [place] [address] 12 Lead EKG 08/30/22 1248 MR#: [id number] Acct: [id number] Name: ZAYDA DE LA VEGA Rep #: [id number] : 1950 71 From: Zayda Casiano MD Attending Dr: Status: DEP ER Ordering Dr: Nidhi Carrasco MD Date: 08/30/22 Location: ED Sex: M C Admitted: Test Reason : Blood Pressure : / mmHG Vent. Rate : 072 BPM Atrial Rate : 072 BPM P-R Int : 236 ms QRS Dur : 168 ms QT Int : 442 ms P-R-T Axes : 030 -67 017 degrees QTc Int : 483 ms Sinus rhythm with 1st degree A-V block Left axis deviation Non-specific intra-ventricular conduction block Left ventricular hypertrophy ( R in aVL , Todd product ) Abnormal ECG Confirmed by DEEDEE MALDONADO, ZAYDA ([id number]), news copy editor JERICHO MCKEON ([id number]) on 08/31/2022 9:17:30 AM Referred By: BERNA Confirmed By:ZAYDA CASIANO MD 08/31/22 0917 Date Zayda Casiano MD CC: Dr. Alex Zarate MD; Dr. Nidhi Carrasco MD Signed Normal [facility] Absolute lymphocyte counton 08-30-2022 Lymphocytes Auto (Unsp spec) [#/Vol] 1.10 10*3/uL 0.83-4.[address] [facility] Work Phone: Basic Metabolic Profile (BMP )on 08-30-2022 BUN/CRE 18.1 RATIO Normal 10-[address] [facility] Comment on above: Performed By: #### L 500.2500, L500.3400, L100.0100 #### [facility] [address] [place], [address] CA,Total 8.4 mg/dL Low 8.5-10.[address] [facility] Comment on above: Performed By: #### L 500.2500, L500.3400, L100.0100 #### [facility] [address] [place], [address] Chloride [Moles/Vol] 98 mmol/L Normal 98-[address] [facility] Comment on above: Performed By: #### L 500.2500, L500.3400, L100.0100 #### [facility] [address] [place], [address] CO2 [Moles/Vol] 28.0 mmol/L Normal 21.0-32.[address] [facility] Comment on above: Performed By: #### L 500.2500, L500.3400, L100.0100 #### [facility] [address] [place], [address] Creatinine [Mass/Vol] 0.77 mg/dL Normal 0.70-1.[address] [facility] Comment on above: Result Comment: The validity of the calculated GFR GFRAA in patients over 70 years has not been determined. Clinical correlation is essential. Performed By: #### L 500.2500, L500.3400, L100.0100 #### [facility] [address] [place], [address] ECRCL 63.65 ml/min Normal [facility] Comment on above: Performed By: #### L 500.2500, L500.3400, L100.0100 #### [facility] [address] [place], [address] EST GFR - AA 126 mL/min Normal >[address] [facility] Comment on above: Result Comment: Afri can [place]ian GFR Calc Performed By: #### L 500.2500, L500.3400, L100.0100 #### [facility] [address] [place], [address] GAP 5 Normal 5-[address] [facility] Comment on above: Performed By: #### L 500.2500, L500.3400, L100.0100 #### [facility] [address] [place], [address] GFR/1.73 sq M.predicted among non-blacks MDRD (S/P/Bld) [Vol rate/Area] 104 mL/min/{1.73_m2} Normal >[address] [facility] Comment on above: Result Comment: Non- GFR Calc Performed By: #### L 500.2500, L500.3400, L100.0100 #### [facility] [address] [place], [address] Glucose [Mass/Vol] 127 mg/dL High 74-106 [facility] Comment on above: Result Comment: Fast ing Glucose result greater than or equal to 126 mg/dL suggests DIABETES MELLITUS per A.D.A. criteria. Performed By: #### L 500.2500, L500.3400, L100.0100 #### [facility] [address] [place], [address] Potassium [Moles/Vol] 4.2 mmol/L Normal 3.5-5.[address] [facility] Comment on above: Performed By: #### L 500.2500, L500.3400, L100.0100 #### [facility] [address] [place], [address] Sodium [Moles/Vol] 131 mmol/L Low 136-145 [facility] Comment on above: Performed By: #### L 500.2500, L500.3400, L100.0100 #### [facility] [address] [place], [address] Urea nitrogen [Mass/Vol] 14 mg/dL Normal 7-[address] [facility] Comment on above: Performed By: #### L 500.2500, L500.3400, L100.0100 #### [facility] [address] [place], [address] Basophil percentageon 2021 Basophils/100 WBC (Bld) 0.6 % 0-[address] [facility] Work Phone: [phone] Bilirubin [Mass/Vol] 0.50 mg/dL 0.20-1.[address] [facility] Work Phone: [phone] Comment on above: For patients on eltr ombopag therapy, use of Dimension [place] TBIL is not recommended. Chloride [Moles/Vol] 98 mmol/L 98-[address] [facility] Work Phone: Eosinophils/100 WBC (Bld) 3.4 % 0-[address] [facility] Work Phone: [phone] Glucose [Mass/Vol] 127 mg/dL 74-106 [facility] Work Phone: [phone] Comment on above: Fasting Glucose resu lt greater than or equal to 126 mg/dL suggests DIABETES MELLITUS per A.D.A. criteria. Neutrophils (Bld) [#/Vol] 5.8 10*3/uL 2.0-7.[address] [facility] Work Phone: Neutrophils/100 WBC (Bld) 68.2 % 47-[address] [facility] Work Phone: [phone] Potassium [Moles/Vol] 4.2 mmol/L 3.5-5.[address] [facility] Work Phone: Protein [Mass/Vol] 6.9 g/dL 6.4-8.2 [facility] Work Phone: [phone] Sodium [Moles/Vol] 131 mmol/L 136-145 [facility] Work Phone: WBC (Bld) [#/Vol] 8.6 10*3/uL 4.4-11.0 [facility] Work Phone: Blood erythrocytes count (nu mber/volume)on 08-30-2022 RBC (Bld) [#/Vol] 3.94 10*6/uL 4.6-6.[address] [facility] Work Phone: Blood hemoglobin measurement (mass/volume)on 08-30-2022 Hemoglobin (Bld) [Mass/Vol] 12.1 g/dL 13.0-16.[address] [facility] Work Phone: Blood lymphocytes/100 leukoc yteson 08-30-2022 Lymphocytes/100 WBC (Bld) 12.8 % 19-[address] [facility] Work Phone: Blood monocytes/100 leukocyt eson 08-30-2022 Monocytes/100 WBC (Bld) 14.1 % 0-[address] [facility] Work Phone: Blood platelet mean volumeon 08-30-2022 Platelet mean volume (Bld) [Entitic vol] 8.5 fL 6.2-12.[address] [facility] Work Phone: CBC W/Diff, Automatedon 08-04 Absolute Lymph 1.10 X10 3/uL Normal 0.83-4.[address] [facility] Comment on above: Performed By: #### L 500.2500, L500.3400, L100.0100 #### [facility] [address] [place], [address] Absolute Neut 5.8 X10 3/uL Normal 2.0-7.[address] [facility] Comment on above: Performed By: #### L 500.2500, L500.3400, L100.0100 #### [facility] [address] [place], [address] Basophils/100 WBC (Bld) 0.6 % Normal 0-[address] [facility] Comment on above: Performed By: #### L 500.2500, L500.3400, L100.0100 #### [facility] [address] [place], [address] Eosinophils/100 WBC (Bld) 3.4 % Normal 0-[address] [facility] Comment on above: Performed By: #### L 500.2500, L500.3400, L100.0100 #### [facility] [address] [place], [address] Erythrocyte distribution width (RBC) [Ratio] 14.6 % Normal 11.6-14.[address] [facility] Comment on above: Performed By: #### L 500.2500, L500.3400, L100.0100 #### [facility] [address] [place], [address] Hematocrit (Bld) [Volume fraction] 36.3 % Low 40-[address] [facility] Comment on above: Performed By: #### L 500.2500, L500.3400, L100.0100 #### [facility] [address] [place], [address] Hemoglobin (Bld) [Mass/Vol] 12.1 g/dL Low 13.0-16.[address] [facility] Comment on above: Performed By: #### L 500.2500, L500.3400, L100.0100 #### [facility] [address] [place], [address] IG% 0.900 Normal 0.0-0.[address] [facility] Comment on above: Result Comment: IG% - Immature Granulocytes (promyelocytes, myelocytes and metamyelocytes) > 1% indicates that a LEFT SHIFT is Present. Performed By: #### L 500.2500, L500.3400, L100.0100 #### [facility] [address] [place], [address] Lymphocytes/100 WBC (Bld) 12.8 % Low 19-[address] [facility] Comment on above: Performed By: #### L 500.2500, L500.3400, L100.0100 #### [facility] [address] [place], [address] MCH (RBC) [Entitic mass] 30.7 pg Normal 27.0-32.[address] [facility] Comment on above: Performed By: #### L 500.2500, L500.3400, L100.0100 #### [facility] [address] [place], [address] MCHC (RBC) [Mass/Vol] 33.3 g/dL Normal 32-[address] [facility] Comment on above: Performed By: #### L 500.2500, L500.3400, L100.0100 #### [facility] [address] [place], [address] MCV (RBC) [Entitic vol] 92.1 fL Normal 80-[address] [facility] Comment on above: Performed By: #### L 500.2500, L500.3400, L100.0100 #### [facility] [address] [place], [address] Monocytes/100 WBC (Bld) 14.1 % High 0-[address] [facility] Comment on above: Performed By: #### L 500.2500, L500.3400, L100.0100 #### [facility] [address] [place], [address] Neutrophils/100 WBC (Bld) 68.2 % Normal 47-[address] [facility] Comment on above: Performed By: #### L 500.2500, L500.3400, L100.0100 #### [facility] [address] [place], [address] Nucleated RBC (Bld) [#/Vol] 0 10*3/uL Normal 0-[address] [facility] Comment on above: Performed By: #### L 500.2500, L500.3400, L100.0100 #### [facility] [address] [place], [address] Platelet mean volume (Bld) [Entitic vol] 8.5 fL Normal 6.2-12.[address] [facility] Comment on above: Performed By: #### L 500.2500, L500.3400, L100.0100 #### [facility] [address] [place], [address] Platelets (Bld) [#/Vol] 240 10*3/uL Normal 150-[address] [facility] Comment on above: Performed By: #### L 500.2500, L500.3400, L100.0100 #### [facility] [address] [place], [address] RBC (Bld) [#/Vol] 3.94 10*6/uL Low 4.6-6.[address] [facility] Comment on above: Performed By: #### L 500.2500, L500.3400, L100.0100 #### [facility] [address] [place], [address] RDW SD 49.4 fl High 35.1-43.[address] [facility] Comment on above: Performed By: #### L 500.2500, L500.3400, L100.0100 #### [facility] [address] [place], [address] WBC (Bld) [#/Vol] 8.6 10*3/uL Normal 4.4-11.0 [facility] Comment on above: Performed By: #### L 500.2500, L500.3400, L100.0100 #### [facility] [address] [place], [address] COVID 19 AG RAPID (RN BERNARDO T)on 08-30-2022 SARS-CoV-2 (COVID-19) RNA EMPERATRIZ+probe Ql (Unsp spec) *Negative results from patients with symptom onset beyond five days should be treated as presumptive and confirmed by a molecular assay if clinically necessary. Negative results should not be used as the sole basis for treatment or for patient management. SARS-CoV-2 Ag Resp Ql IA.rapid *Positive results do not differentiate between SARS-CoV and SARS-CoV-2. If differentiation of the specific SARS virus is desired an additional sample and an additional order is required. SARS-CoV-2 Ag Resp Ql IA.rapid * This test has not been FDA cleared or approved; the test has been authorized by FDA under an Emergency Use Authorization (EAU) for use by laboratories certified under CLIA that meet the requirements to perform moderate, high, or waived complexity tests. SARS-CoV-2 Ag Resp Ql IA.rapid Normal Reference Range: Negative SARS-CoV-2 (COVID 19) A *POSITIVE* A RAPID METHOD [employer] COVID19 Ag Card SARS-CoV-2 (COVID 19) Normal [facility] Comment on above: Performed By: #### M 100.505 #### [facility] [address] [facility] [place], [place], [address] Chest 1 View (Portable)on Chest 1 View (Portable) [facility] Imaging Services [address] [place] [address] Chest 1 View (Portable) MR#: [id number] Acct: [id number] Name: ZAYDA DE LA VEGA Rep #: [id number] : 1950 M 71 From: Hu link MD PCP: Dr. Alex Zarate MD Status: REG ER Study: Chest 1 View (Portable) Date of Exam: 08/30/22 Exam# [id number] Ordering Dr: Nidhi Carrasco MD STUDY: X-RAY CHEST REASON FOR EXAM: Male, 71 years old. covid, sob TECHNIQUE: Single AP portable view of the chest. COMPARISON: Comparison is made with prior study dated 02/29/2020. FINDINGS: EKG electrodes are seen. Minimal increased markings at the left lung base suggestive of linear atelectasis. There is no demonstrated pleural abnormality. There is borderline cardiomegaly. Normal mediastinum and parviz. There is prominence of the pulmonary hilar arteries without peripheral pulmonary vascular congestion, suggesting pulmonary hypertension. Normal visualized aortic arch and descending thoracic aorta. Normal visualized thoracic spine. Status post left shoulder replacement. There is no demonstrated abnormality of the visualized soft tissue structures of the upper abdomen. RAD/Chest 1 View (Portable) IMPRESSION: Prominence of the central pulmonary arteries. Mild increased markings at the left lung base suggestive of atelectasis. Electronically Signed: Hu Reina MD at 13:35 EST Reading Location ID and State: [address] [place] [address] , Service support , CC: Dr. Alex Zarate MD; Dr. Nidhi Carrasco MD Integration Lead: Signed Normal [facility] Determination of erythrocyte mean corpuscular volume (MCV)on 08-30-2022 MCV (RBC) [Entitic vol] 92.1 fL 80-[address] [facility] Work Phone: Direct bilirubinon Bilirubin.direct [Mass/Vol] 0.14 mg/dL 0.00-0.[address] [facility] Work Phone: Emergency Department Summary on 08-30-2022 Emergency Department Summary [facility] Medical Records Department [address] [place] [address] Emergency Department Summary 08/30/22 MR#: [id number] Acct: [id number] Name: ZAYDA DE LA VEGA Rep #: [id number] : [id number] 71 From: Nidhi Carrasco MD PCP: Dr. Alex Zarate MD Status:DEP ER Location: ED HPI History of Present Illness Chief Complaint: Shortness of Breath Detail of Chief Complaint: COVID Informant: patient Onset/Context/Timing Onset: Days (3-day) Context: Gradual Onset Current Severity: Mild Maximum Severity: Moderate Narrative Narrative: Patient presents with shortness of breath and cough. He had a positive COVID test this morning. He states over the weekend he decided had cold-like symptoms. He has had borderline fever around 100.7. Today the symptoms moved out into his chest. [facility] Medical History (Updated 08/30/22 @ 15:[address] Nidhi Carrasco MD) Abnormal gait Anemia Anxiety and depression Congenital spondylolisthesis GERD (gastroesophageal reflux disease) HDL deficiency Hypertension Lumbosacral neuritis Lupus Monoclonal paraproteinemia MARCELINA on CPAP Osteoarthritis Prediabetes Seborrheic keratosis Home Medications azelastine 137 mcg (0.1 %) nasal spray aerosol 1 spray BID allergies 06/25/14 [History Last Taken 08/30/22 08:00] bupropion HCl 150 mg tablet,12 hr sustained-release 150 mg PO TID depression 06/25/14 [History Last Taken 08/30/22 12:00] fluticasone propionate 50 mcg/actuation nasal spray,suspension 1 spray BID allergies 06/25/14 [History Last Taken 08/30/22 08:00] lorazepam 1 mg tablet (Ativan) 1 mg PO BID PRN Anxiety 06/25/14 [History Last Taken 02/29/20 15:00] risperidone 1 mg tablet 1 mg PO QHS sleep 06/25/14 [History Last Taken 08/29/22 22:00] aspirin 81 mg tablet,delayed release 81 mg PO DAILY@0800 30 days 06/26/14 [Rx Last Taken 08/30/22 08:00] metoprolol tartrate 25 mg tablet 50 mg PO DAILY blood pressure 11/30/17 [History Last Taken 08/30/22 08:00] zolpidem 5 mg tablet 2 mg PO QHS PRN PRN Sleep 03/01/20 [History Last Taken 02/29/20 21:00] amlodipine 5 mg tablet 5 mg PO DAILY 08/30/22 [History Last Taken 08/30/22 08:00] ascorbic acid (vitamin C) (Vitamin C oral powder) 2 g PO Q6H 08/30/22 [History Last Taken 08/30/22 08:00] duloxetine 60 mg capsule,delayed release 60 mg PO BID 08/30/22 [History Last Taken 08/30/22 08:00] ferrous sulfate 325 mg (65 mg iron) tablet (Iron (ferrous sulfate)) 325 mg PO DAILY 08/30/22 [History Last Taken 08/30/22 08:00] fexofenadine 180 mg tablet 180 mg PO DAILY 08/30/22 [History Last Taken 08/30/22 08:00] hydrocodone-acetaminophen 5-325mg 5mg-325mg 1 tab PO Q8H PRN PRN PAIN 08/30/22 [History Last Taken 08/30/22 08:00] hydroxychloroquine 200 mg tablet 200 mg PO BID 08/30/22 [History Last Taken 08/30/22 08:00] meloxicam 15 mg tablet 15 mg PO DAILY 08/30/22 [History Last Taken 08/30/22 08:00] pregabalin 225 mg capsule 225 mg BID 08/30/22 [History Last Taken 08/30/22 08:00] tamsulosin 0.4 mg capsule 0.4 mg PO QHS 08/30/22 [History Last Taken 08/29/22 22:00] Allergy/AdvReac Type Severity Reaction Status Date / Time niacin Allergy Other Verified 08/30/22 12:26 oseltamivir [From Tamiflu] Allergy Anaphylaxis Verified 08/30/22 12:26 Penicillins Allergy Rash Verified 08/30/22 12:26 povidone-iodine Allergy Other Verified 08/30/22 12:26 [From Betadine] pseudoephedrine HCl Allergy Anaphylaxis Verified 08/30/22 12:26 [From Sudafed] soap [From Betadine] Allergy Other Verified 08/30/22 12:26 soy Allergy Unknown Verified 08/30/22 12:26 trazodone Allergy Anaphylaxis Verified 08/30/22 12:26 Surgical History (Updated 08/30/22 @ 15:[address] Rosa Maria Godfrey MD) H/O lumbosacral spine surgery History of bilateral carpal tunnel release History of hip replacement History of right shoulder replacement Social History (Updated 08/30/22 @ 15:[address] Rosa Maria Godfrey MD) household members: spouse Smoking Status: Former smoker how long ago did patient quit smoking: Quit 43-44 yrs prior, smoked 12 yrs 1 ppd until quit. alcohol intake: never substance use type: does not use ROS ROS ED Constitutional Constitutional ED: Reports fever(s); Denies chills Eyes Eyes: Denies change in vision or discharge from eye(s) ENT ENT ED: Reports rhinorrhea and other Details: Congestion ; Denies discharge from eye(s) or sore throat Cardiovascular Cardiovascular: Reports other Details: Rib pain ; Denies chest pain or palpitations Respiratory/Chest Respiratory/Chest: Reports cough and dyspnea Gastrointestinal Gastrointestinal: Denies abdominal pain, diarrhea, nausea or vomiting Genitourinary Genitourinary ED: Denies difficulty urinating or dysuria Musculoskeletal Musculoskeletal: Reports myalgias; Denies back pain or extremity pain Integumentary Denies Abrasions or rash Neurologic Neurolog (more content not included)... Normal [facility] Hematocrit Auto (Bld) [Volum e fraction]on 08-30-2022 Hematocrit (Bld) [Volume fraction] 36.3 % 40-[address] [facility] Work Phone: Laboratory - Chemistry and C hemistry - challengeon 08-30-2022 ALP [Catalytic activity/Vol] 56 U/L 45-[address] [facility] Work Phone: [phone] ALT [Catalytic activity/Vol] 35 U/L 16-[address] [facility] Work Phone: [phone] CO2 [Moles/Vol] 28.0 mmol/L 21.0-32.[address] [facility] Work Phone: Globulin (S) [Mass/Vol] 3.4 g/dL 2.2-4.[address] [facility] Work Phone: Urea nitrogen/Creatinine [Mass ratio] 18.1 mg/mg 10-[address] [facility] Work Phone: [phone] Laboratory - Hematology and Cell countson 08-30-2022 Erythrocyte distribution width (RBC) [Entitic vol] 49.4 fL 35.1-43.[address] [facility] Work Phone: Erythrocyte distribution width (RBC) [Ratio] 14.6 % 11.6-14.[address] [facility] Work Phone: [phone] Immature granulocytes/100 WBC (Bld) 0.900 % 0.0-0.[address] [facility] Work Phone: Comment on above: IG% - Immature Granu locytes (promyelocytes, myelocytes and metamyelocytes) > 1% indicates that a LEFT SHIFT is Present. MCH (RBC) [Entitic mass] 30.7 pg 27.0-32.[address] [facility] Work Phone: Nucleated RBC/100 WBC (Bld) [Ratio] 0 % 0-[address] [facility] Work Phone: Liver Profileon 08-30-2022 Albumin [Mass/Vol] 3.5 g/dL Normal 3.2-5.0 [facility] Comment on above: Performed By: #### L 500.2500, L500.3400, L100.0100 #### [facility] [address] [place], [address] ALK P 56 U/L Normal 45-[address] [facility] Comment on above: Performed By: #### L 500.2500, L500.3400, L100.0100 #### [facility] [address] [place], [address] ALT [Catalytic activity/Vol] 35 U/L Normal 16-[address] [facility] Comment on above: Performed By: #### L 500.2500, L500.3400, L100.0100 #### [facility] [address] [place], [address] AST [Catalytic activity/Vol] 16 U/L Normal 15-[address] [facility] Comment on above: Performed By: #### L 500.2500, L500.3400, L100.0100 #### [facility] [address] [place], [address] Bilirubin [Mass/Vol] 0.50 mg/dL Normal 0.20-1.[address] [facility] Comment on above: Result Comment: For patients on eltrombopag therapy, use of Dimension Kane TBIL is not recommended. Performed By: #### L 500.2500, L500.3400, L100.0100 #### [facility] [address] [place], [address] Bilirubin.direct [Mass/Vol] 0.14 mg/dL Normal 0.00-0.[address] [facility] Comment on above: Performed By: #### L 500.2500, L500.3400, L100.0100 #### [facility] [address] [place], [address] Globulin (S) [Mass/Vol] 3.4 g/dL Normal 2.2-4.[address] [facility] Comment on above: Performed By: #### L 500.2500, L500.3400, L100.0100 #### [facility] [address] [place], [address] T PROT 6.9 g/dL Normal 6.4-8.[address] [facility] Comment on above: Performed By: #### L 500.2500, L500.3400, L100.0100 #### [facility] [address] [place], [address] MCHC Auto (RBC) [Mass/Vol]on 08-30-2022 MCHC (RBC) [Mass/Vol] 33.3 g/dL 32-[address] [facility] Work Phone: No Panel Informationon 08-30 Estimated Creatinine Clearance Calc 63.65 ml/min [facility] Work Phone: Estimated GFR (MDRD) Amer 126 mL/min >[address] [facility] Work Phone: Comment on above: GFR Calc Estimated GFR (MDRD) Non-Af Amer 104 mL/min >[address] [facility] Work Phone: Comment on above: Non- GFR Calc Platelets bldon 08-30-2022 Platelets (Bld) [#/Vol] 240 10*3/uL 150-[address] [facility] Work Phone: Serum or plasma albumin darshana urement (mass/volume)on 11-28-2022 Albumin [Mass/Vol] 3.5 g/dL 3.2-5.0 [facility] Work Phone: Serum or plasma calcium darshana urement (mass/volume)on 08-30-2022 Calcium [Mass/Vol] 8.4 mg/dL 8.5-10.1 [facility] Work Phone: Serum or plasma creatinine m easurement (mass/volume)on 08-30-2022 Creatinine [Mass/Vol] 0.77 mg/dL 0.70-1.[address] [facility] Work Phone: Comment on above: The validity of the calculated GFR & GFRAA in patients over 70 years has not been determined. Clinical correlation is essential. Serum or plasma urea nitroge n measurement (mass/volume)on 08-30-2022 Urea nitrogen [Mass/Vol] 14 mg/dL 7-[address] [facility] Work Phone: Thin prep Papanicolaou smear with manual screeningon 08-30-2022 Thin prep Papanicolaou smear with manual screening 16 U/L 15-[address] [facility] Work Phone: Thin prep Papanicolaou smear with manual screening 5 5-[address] [facility] Work Phone: CT CHEST WO IVCONon 08-13-20 22 [facility] UA DIP, URINE (POC)on 2021 BILIRUBIN UA (POCT) Negative Negative [facility] CLARITY UA (POCT) Clear [facility] COLOR UA (POCT) Yellow [facility] GLUCOSE UA (POCT) Negative Negative mg/dL [facility] HEMOGLOBIN/BLOOD UA (POCT) Negative Negative [facility] KETONE UA (POCT) Negative Negative mg/dL [facility] LEUKOCYTES UA (POCT) Negative Negative [facility] NITRITE UA (POCT) Negative Negative [facility] PH UA (POCT) 6.0 4.5 - 8.0 [facility] Protein Ql (U) Negative Negative mg/dL [facility] SPECIFIC GRAVITY UA (POCT) 1.020 1.005 - 1.[address] [facility] UROBILINOGEN UA (POCT) 0.2 E.U./dL Normal E.U./dL [facility] DNA AB DS + CONF BLDon 07-14 DNA double strand Ab IA Qn (S) 82.96 IU/mL High <30 IU/mL [facility] C-REACTIVE PROTEIN (CRP)on 1 CRP [Mass/Vol] 0.6 mg/dL <0.9 mg/dL [facility] C3 COMPLEMENT BLDon 07-13-20 Complement C3 [Mass/Vol] 141 mg/dL 86 - 166 mg/dL [facility] C4 COMPLEMENT BLDon 07-13-20 Complement C4 [Mass/Vol] 26 mg/dL 13 - 46 mg/dL [facility] ESR Westergren method (Bld) [Velocity]on 07-13-2022 ESR (Bld) [Velocity] 10 mm/h 0 - 15 mm/hr [facility] TSH BLDon 07-13-2022 TSH Qn 1.460 m[IU]/L 0.270 - 4.200 mIU/L [facility] XR CHEST 2V FRONTAL/LATon [facility] No Panel Informationon 07-12 Radiology Study observation (narrative) [facility] XR Elbow - right AP and Late ral and obliqueon 07-12-2022 IMPRESSION: 1. 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 Integration Lead: [facility] Transcribe Date/Time: Jul 12 2022 3:11P Dictated by : ZAYDA THOMAS MD This examination was interpreted and the report reviewed and electronically signed by: ZAYDA THOMAS MD on Jul 12 2022 3:12PM [facility] DIVISION OF RADIOLOGY * * *Final Report* * * DATE OF EXAM: Jul 12 2022 3:08PM STX 5325 - XR ELBOW 3V AP/LAT/OTHER RT / PROCEDURE REASON: Pain * * * * Physician Interpretation * * * * RIGHT elbow x-rays: HISTORY: Pain TECHNIQUE: 4 views were obtained. RESULT: Osseous structures are intact, without evidence of an acute fracture. Joint spaces are preserved. There is no evidence of a RIGHT elbow effusion. Small capitellar and coronoid process osteophytes are present. DIVISION OF RADIOLOGY Provider, [facility] - 07/12/2022 * * *Final Report* * * DATE OF EXAM: Jul 12 2022 3:08PM STX 5325 - XR ELBOW 3V AP/LAT/OTHER RT / PROCEDURE REASON: Pain * * * * Physician Interpretation * * * * RIGHT elbow x-rays: HISTORY: Pain TECHNIQUE: 4 views were obtained. RESULT: Osseous structures are intact, without evidence of an acute fracture. Joint spaces are preserved. There is no evidence of a RIGHT elbow effusion. Small capitellar and coronoid process osteophytes are present. IMPRESSION IMPRESSION: 1. 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 Integration Lead: [facility] Transcribe Date/Time: Jul 12 2022 3:11P Dictated by : ZAYDA THOMAS MD This examination was interpreted and the report reviewed and electronically signed by: ZAYDA THOMAS MD on Jul 12 2022 3:12PM EST [facility] XR Shoulder - right 3 Viewso n 07-12-2022 IMPRESSION: 1. Stable postsurgical changes of RIGHT total shoulder arthroplasty. Integration Lead: [facility] Transcribe Date/Time: Jul 12 2022 3:12P Dictated by : ZAYDA THOMAS MD This examination was interpreted and the report reviewed and electronically signed by: ZAYDA THOMAS MD on Jul 12 2022 3:13PM [facility] DIVISION OF RADIOLOGY * * *Final Report* * * DATE OF EXAM: Jul 12 2022 3:07PM STX 5253 - XR SHLDR >/=3V AP/ELLIOT AP/OTHR RT / PROCEDURE REASON: Pain * * * * Physician Interpretation * * * * RIGHT shoulder x-rays: HISTORY: Pain TECHNIQUE: 3 views were obtained. COMPARISON: 05/01/2020 RESULT: There has been no significant interval change. The patient is status post RIGHT total shoulder arthroplasty. Components remain in normal relationship. There is no evidence of an acute fracture nor of significant periprosthetic lucency. The acromiohumeral interval is maintained. Mild osteophyte formation is present at the acromioclavicular joint. DIVISION OF RADIOLOGY Provider, [facility] - 07/12/2022 * * *Final Report* * * DATE OF EXAM: Jul 12 2022 3:07PM STX 5253 - XR SHLDR >/=3V AP/ELLIOT AP/OTHR RT / PROCEDURE REASON: Pain * * * * Physician Interpretation * * * * RIGHT shoulder x-rays: HISTORY: Pain TECHNIQUE: 3 views were obtained. COMPARISON: 05/01/2020 RESULT: There has been no significant interval change. The patient is status post RIGHT total shoulder arthroplasty. Components remain in normal relationship. There is no evidence of an acute fracture nor of significant periprosthetic lucency. The acromiohumeral interval is maintained. Mild osteophyte formation is present at the acromioclavicular joint. IMPRESSION IMPRESSION: 1. Stable postsurgical changes of RIGHT total shoulder arthroplasty. Integration Lead: [facility] Transcribe Date/Time: Jul 12 2022 3:12P Dictated by : ZAYDA THOMAS MD This examination was interpreted and the report reviewed and electronically signed by: ZAYDA THOMAS MD on Jul 12 2022 3:13PM EST [facility] XR Shoulder - right 3 ViewsO rdered By: [facility] Provider on 07-12-[address] [facility] [address] WB SKULL TO KNEE WO IVCON on 07-05-2022 CT WB SKULL TO KNEE WO IVCON * * *Final Report* * * DATE OF EXAM: Jul 05 2022 11:00AM [facility] 2096 - CT WB SKULL TO KNEE WO IVCON / PROCEDURE REASON: 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) * * * * Physician Interpretation * * * * LOW-DOSE WHOLE BODY CT FROM SKULL TO KNEE WITHOUT IV CONTRAST Clinical Statement: Multiple myeloma not having achieved remission. Comparison: Bone survey 02/25/2022. TECHNIQUE: Low-dose CT was performed from the skull to the knees without contrast. Coronal and sagittal reconstructions were performed. FINDINGS: SKULL: There is hyperostosis frontalis interna. No lytic lesions. SPINE: Multilevel degenerative disc disease. There are postsurgical changes of posterior fusion at L5-S1 with bilateral pedicle screws and rods. There is severe L5-S1 degenerative disc disease with grade 1 anterolisthesis of L5 on S1. No vertebral body compression fractures identified. THORAX: No lytic lesions fracture. Degenerative change with subarticular cysts and sclerosis at the right sternoclavicular joint. Bilateral AC joint osteoarthritis noted, right greater than left. Heart size is within normal limits. Coronary artery calcifications are shown. The thoracic aorta is normal in caliber. No pericardial effusion. The imaged thyroid is unremarkable. No thoracic lymphadenopathy. No suspicious pulmonary nodule or consolidation. No pleural effusions. Linear scarring or atelectasis at the lung bases. Major airways are patent. ABDOMEN: Hepatic steatosis noted. There is mild fatty replacement of the pancreas. No adrenal mass. Kidneys are unremarkable with no calculus or hydronephrosis identified. No evidence of a cyst or mass involving the unenhanced kidneys. Nonenlarged spleen. No dilated bowel segments. There is colonic diverticulosis. No ascites. No abdominal lymphadenopathy. Abdominal aorta is normal in caliber with scattered atherosclerotic calcifications noted. PELVIS: There are postsurgical changes of right hip arthroplasty. There is a 2.5 cm ill-defined periprosthetic lucency along the superior acetabulum. No other lytic bone lesions. Degenerative changes noted at the left hip joint. There is degenerative sclerosis at the SI joints. Unremarkable urinary bladder. Small fat-containing left inguinal hernia. Enlarged prostate measuring 5.4 cm transversely. EXTREMITIES: No lytic bone lesions. Small bone island noted within the metaphyseal region of the distal femur. Degenerative changes present at the knee, left greater than right, with small left knee joint effusion noted. Postsurgical changes of bilateral shoulder arthroplasty noted. There are postsurgical changes of the right coracoid process. IMPRESSION: 1. Status post right hip arthroplasty, with small 2.4 cm zone of periprosthetic lucency along the superior acetabulum. This could relate to small particle disease rather than a myelomatous bone lesion. 2. No other lytic lesions identified within the axial or visualized appendicular skeleton. Chronic and incidental findings as above. [facility] Transcribe Date/Time: Jul 05 2022 1:44P Dictated by : NUSRAT HEWITT MD This examination was interpreted and the report reviewed and electronically signed by: NUSRAT HEWITT MD on Jul 05 2022 2:27PM EST [id number] Normal [facility] CT WHOLE BODY SKULL TO KNEE WO IVCONon 07-05-2022 [facility] No Panel Informationon 04-19 [facility] SURGICAL PATHOLOGYon 022 Case Report Surgical Pathology R eport Case: [id number] Authorizing Provider: Diana Whyte MD Collected: 03/11/2022 11:57 AM Ordering Location: Otolaryngology Received: 03/11/2022 07:21 PM Pathologist: Annamaria Putnam MD Specimen: ORAL MUCOSA BIOPSY, right cheek [facility] Clinical History right cheek mass [facility] Diagnosis Comment Multiple deeper leve ls were examined. [facility] FINAL DIAGNOSIS A. 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 (See comment.) [facility] Gross Description A. ORAL MUCOSA BIOPS Y. Received in alcoholic formalin is one piece of irregular vale to vale-white, firm mucosal covered tissue measuring 0.5 x 0.3 x 0.4 cm. The specimen is not sectioned. Totally submitted in formalin in one cassette. Gross examination performed at [facility], [address] [id number] JS 03/12/2022 12:08 AM [facility] Performing Lab Diagnostic interpret ation performed at [facility], [facility] [address] CLIA# [id number] Office Rental Clerk: Uziel Chávez M.D. [facility] C-REACTIVE PROTEIN (CRP)on 0 03-09-2022 CRP [Mass/Vol] 0.6 mg/dL <0.9 mg/dL [facility] C3 COMPLEMENT [facility] 03-09-20 Complement C3 [Mass/Vol] 148 mg/dL 86 - 166 mg/dL [facility] C4 COMPLEMENT [facility] 03-09-20 Complement C4 [Mass/Vol] 28 mg/dL 13 - 46 mg/dL [facility] ESR Westergren method (Bld) [Velocity]on 03-09-2022 ESR (Bld) [Velocity] 8 mm/h 0 - 15 mm/hr [facility] VITAMIN B12 BLOODon 03-09-20 Cobalamin (Vitamin B12) [Mass/Vol] 675 pg/mL 232-1,245 pg/mL [facility] MAG ANTIBODY,IGM ELISAon MAG Ab IgM, LUKE <1000 0 - 999 TU [facility] VASC ENDO GROWTH FACTORon Vascular endothelial growth factor [Mass/Vol] 36 pg/mL 9 - 86 pg/mL [facility] COPPER BLOODon 02-26-2022 Copper [Mass/Vol] 94 ug/dL 70 - 140 ug/dL [facility] B2 MICROGLOBULIN Bon 022 Qjkx-0-Xhsggvzhcuzp n [Mass/Vol] 1.7 ug/mL <3.1 mg/L [facility] CALCIUM IONIZED Bon 02-26-20 Calcium.ionized (Bld) [Mass/Vol] 1.25 mmol/L 1.08 - 1.30 mmol/L [facility] Calcium.ionized adjusted to pH 7.4 (Bld) [Moles/Vol] 1.22 mmol/L 1.08 - 1.30 mmol/L [facility] CBC W Auto Differential pane l (Bld)on 02-25-2022 Abs Immature Gran 0.08 k/uL <0.10 k/uL [facility] Basophils (Bld) [#/Vol] 0.08 10*3/uL <0.11 k/uL [facility] Basophils/100 WBC (Bld) 1.1 % [facility] Differential cell count method Nom (Bld) Auto [facility] Eosinophils (Bld) [#/Vol] 0.25 10*3/uL <0.46 k/uL [facility] Eosinophils/100 WBC (Bld) 3.4 % [facility] Erythrocyte distribution width (RBC) [Ratio] 13.7 % 11.5 - 15.0 % [facility] Hematocrit (Bld) [Volume fraction] 40.2 % 39.0 - 51.0 % [facility] Hemoglobin (Bld) [Mass/Vol] 13.3 g/dL 13.0 - 17.0 g/dL [facility] Immature Gran % 1.1 % [facility] Lymphocytes (Bld) [#/Vol] 2.06 10*3/uL 1.00 - 4.00 k/uL [facility] Lymphocytes/100 WBC (Bld) 27.8 % [facility] MCH (RBC) [Entitic mass] 30.2 pg 26.0 - 34.0 pg [facility] MCHC (RBC) [Mass/Vol] 33.1 g/dL 30.5 - 36.0 g/dL [facility] MCV (RBC) [Entitic vol] 91.2 fL 80.0 - 100.0 fL [facility] Monocytes (Bld) [#/Vol] 0.73 10*3/uL <0.87 k/uL [facility] [facility] Monocytes/100 WBC (Bld) 9.8 % [facility] Neutrophils (Bld) [#/Vol] 4.22 10*3/uL 1.45 - 7.50 k/uL [facility] Neutrophils/100 WBC (Bld) 56.8 % [facility] Nucleated RBC (Bld) [#/Vol] 10*3/uL <0.01 k/uL [facility] Nucleated RBC/100 WBC (Bld) [Ratio] 0.0 /100 WBC [facility] Platelet mean volume (Bld) [Entitic vol] 8.4 fL Low 9.0 - 12.7 fL [facility] Platelets (Bld) [#/Vol] 277 10*3/uL 150 - 400 k/uL [facility] RBC (Bld) [#/Vol] 4.41 10*6/uL 4.20 - 6.0 0 m/uL [facility] WBC (Bld) [#/Vol] 7.42 10*3/uL 3.70 - 11.00 k/uL [facility] Comprehensive metabolic 2000 panelon 02-25-2022 Albumin [Mass/Vol] 4.5 g/dL 3.9 - 4.9 g/dL [facility] ALP [Catalytic activity/Vol] 51 U/L 38 - 113 U/L [facility] ALT [Catalytic activity/Vol] 29 U/L 10 - 54 U/L [facility] Anion gap [Moles/Vol] 9 mmol/L 9 - 18 mmol/L [facility] AST [Catalytic activity/Vol] 21 U/L 14 - 40 U/L [facility] Bilirubin [Mass/Vol] 0.2 mg/dL 0.2 - 1.3 mg/dL [facility] Calcium [Mass/Vol] 9.0 mg/dL 8.5 - 10. 2 mg/dL [facility] Chloride [Moles/Vol] 103 mmol/L 97 - 105 mmol/L [facility] CO2 [Moles/Vol] 24 mmol/L 22 - 30 mmol/L [facility] Creatinine [Mass/Vol] 0.78 mg/dL 0.73 - 1.22 mg/dL [facility] Estimated Glomerular Filtration Rate 94 mL/min/1.73m >=60 mL/min/1.73 m [facility] Glucose [Mass/Vol] 98 mg/dL 74 - 99 mg/dL [facility] Potassium [Moles/Vol] 4.7 mmol/L 3.7 - 5.1 mmol/L [facility] Protein [Mass/Vol] 6.9 g/dL 6.3 - 8.0 g/dL [facility] Sodium [Moles/Vol] 136 mmol/L 136 - 144 mmol/L [facility] Urea nitrogen [Mass/Vol] 17 mg/dL 9 - 24 mg/dL [facility] LD LACTATE DEHYDROon 022 LDH [Catalytic activity/Vol] 127 U/L Low 135 - 225 U/L [facility] No Panel Informationon 02-25 [facility] PHOSPHORUS INORGANICon 02-25 Phosphate [Mass/Vol] 3.4 mg/dL 2.7 - 4.8 mg/dL [facility] URIC ACID BLOODon 02-25-2022 Urate [Mass/Vol] 5.7 mg/dL 4.0 - 8.1 mg/dL [facility] MONOCLONAL PROT UR W/INTERPo n 01-15-2022 Interpretation ([facility]) N/A [facility] Result ([facility]) No M protein is identified. No M protein is identified. [facility] Staff Review ([facility]) Reviewed by Sonny santos MD, Ph.D ([id number]) [facility] CK CREATINE KINASEon 022 CK [Catalytic activity/Vol] 246 U/L 51 - 298 U/L [facility] Urinalysis complete panel (U )on 01-13-2022 Bilirubin Ql (U) Negative Negative [facility] Clarity (Unsp spec) Clear Clear [facility] Color (U) Light Yellow Yellow [facility] Glucose Test strip (U) [Mass/Vol] Negative Negative [facility] Hemoglobin Ql (U) Negative Negative [facility] Ketones Ql (U) Negative Negative [facility] Leukocyte esterase Test strip Ql (U) Negative Negative [facility] Nitrite Ql (U) Negative Negative [facility] pH (U) 6.0 [pH] 5.0 - 8.0 [facility] Protein (U) [Mass/Vol] Negative Negative [facility] RBC LM.HPF (Urine sed) [#/Area] 0-3 /HPF 0-3 /HPF [facility] Specific gravity (U) [Rel density] 1.012 1.005 - 1.030 [facility] Urobilinogen Ql (U) Negative Negative [facility] WBC LM.HPF (Urine sed) [#/Area] 0-5 /HPF 0-5 /HPF [facility] CNPNon 09-09-2021 CNPN Telephone (AKURFL) ZAYDA DE LA VEGA ([id number]) 1950 M Date Time Provider Department 09/09/21 CHRISTOPHER FREDERICK During your visit today, we recorded the following information about you: Malka Fox Guillaume 09/09/2021 12:15 PM Signed Pt confirmed his new appt with Dr. Derek Canela in [place] 10/05/21 @ 4:00. Gertrudis Allergies As of Date: 09/09/2021 Noted Allergy Reaction ASPARTAME 03/06/2011 7 - Swelling Comments: Pt gets burning sensation under skin BETADINE (POVIDONE-IODINE) 04/09/2013 2 - Rash Comments: Blister NIACIN 01/18/2011 14 - Other: See Comments Comments: Niacin-Dermid Burning pain all over PENICILLINS 12/10/2003 2 - Rash SEASONAL ALLERGIES 09/05/2013 14 - Other: See Comments Comments: GRASS POLLEN-positive skin test 09-05-13 SUDAFED (PSEUDOEPHEDRINE HCL) 01/18/2011 14 - Other: See Comments Comments: Difficulty swallowing, swelling of tongue AND lips TAMIFLU (OSELTAMIVIR PHOSPHATE) 02/11/2014 12 - Shortness of Breath Comments: SOB, arm pain TRAZODONE 03/05/2020 12 - Shortness of Breath ULTRAM (TRAMADOL) 03/21/2013 Comments: Per patient contraindication due to wellbutrin Date Reviewed: 09/08/2021 Reviewed by: Trinidad Webster RN - Fully Assessed Reason for Visit: Appointment [186] Prescriptions as of 09/09/2021 - trospium (SANCTURA) 20 mg tablet Take 1 tablet by mouth twice daily. - pregabalin (LYRICA) 150 mg capsule Take 1 capsule by mouth twice daily - famotidine (PEPCID) 20 mg tablet Take 1 tablet by mouth at bedtime as needed. - nystatin (MYCOSTATIN) ointment Apply thin layer to genital area 2 times daily - nystatin 1 billion unit powd Apply powder to genital area at bedtime - losartan (COZAAR) 25 mg tablet Take 1 tablet by mouth once daily. - HYDROcodone-acetaminophen (NORCO) 5-325 mg per tablet Take 1 tablet by mouth every 8 hours as needed for pain. - azelastine (ASTELIN) 0.1% nasal spray Use 1 [place] in each nostril twice daily. - lipase/protease/amylase (ZENPEP ORAL) Take by mouth. Take one tablet prior to meals and/or snacks - MAGNESIUM ORAL Take 1,000 mg by mouth once daily. Take at bedtime - calcium carbonate (TUMS E-X SUGAR FREE ORAL) Take by mouth. - pantoprazole DR (PROTONIX) 40 mg tablet Take 1 tablet by mouth daily before breakfast. Take on empty stomach, 1/2 hr before meal. - tamsulosin (FLOMAX) 0.4 mg Take 1 capsule by mouth daily at bedtime. - metoprolol succinate ER (TOPROL XL) 25 mg 24 hr tablet Take 1 tablet by mouth once daily. - fluticasone (FLONASE) 50 mcg/actuation nasal spray Use 2 Sprays in each nostril once daily. - meloxicam (MOBIC) 15 mg tablet Take 0.5-1 tablets by mouth once daily. - fexofenadine HCl (ANÍBAL ORAL) Take by mouth. - CPAP Continue BiPAP with new settings: @ 14/8 cm of water with humidification. No new equipment is needed. - docusate sodium (COLACE) 100 mg capsule Take 1 capsule by mouth twice daily as needed. - aspirin, enteric coated (ASPIRIN, ENTERIC COATED) 81 mg EC tablet Take 81 mg by mouth once daily. - IRON, FERROUS SULFATE, ORAL Take by mouth once daily. - ASCORBIC ACID (VITAMIN C ORAL) Take by mouth once daily. - buPROPion (WELLBUTRIN) 75 mg tablet Take 150 mg by mouth three times daily. - LORazepam 1 mg ORAL tablet Take 1 mg by mouth every 6 hours as needed. Problem List As Of Date 09/09/2021 Noted Resolved LUMBOSACRAL NEURITIS NOS [DEG4226] 12/10/2003 SPONDYLOLISTHESIS [Q76.2] 12/10/2003 Essential hypertension, benign [I10] 06/23/2006 SEBORRHEIC KERATOSIS NOS [L82.1] 06/23/2006 Anemia, unspecified [D64.9] 03/27/2008 08/20/2013 MONOCLON PARAPROTEINEMIA [D47.2] 03/27/2008 BENIGN NEOPLASM LG BOWEL [D12.6] 06/26/2008 DIVERTICULOSIS OF COLON W/O BLEED [K57.30] 06/26/2008 INT HEMORRHOID W/O COMPL [K64.8] 06/26/2008 Peripheral neuropathy, idiopathic [G60.9] 01/18/2011 06/13/2017 Hip replacement 03/10/2011 Anemia [D64.9] 03/10/2011 Fever [R50.9] 03/10/2011 06/13/2017 Anxiety [F41.9] 03/10/2011 Shoulder pain [M25.519] 05/11/2012 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] 05/23/2012 Shoulder arthritis [M19.019] 08/03/2012 Rotator cuff strain [S46.019A] 08/03/2012 Ulnar neuritis [G56.20] 10/20/2012 Primary localized osteoarthrosis of shoulder re*02/15/2013 Dizziness and giddiness [R42] 03/02/2013 06/13/2017 Abnormality of gait [R26.9] 03/02/2013 Shoulder joint replacement status [Z96.619] 04/09/2013 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 [Z96.*05/21/2013 06/13/2017 Pes planus of both feet [M21.41, M21.42] 09/24/2015 Arthritis, midfoot [M19.079] 09/24/2015 Glenohumeral arthritis [M19.019] 11/04/2016 Obstructive sleep apnea on CPAP [G47.33, Z99.89]10/03/1997 Major depression, recurrent, chronic (HCC) [F33*06/13/2017 HLD (hyperlipidemia) [E78.5] 06/13/2017 Left shoulder pain [M25.512] 06/21/2017 Prediabetes [R73.03] 09/11/2019 Morbid obesity with body mass ind (more content not included)... Normal [facility] CNPNon 09-08-2021 CNPN Telephone (AKURFL) ZAYDA DE LA VEGA ([id number]) 1950 M Date Time Provider Department 09/08/21 CHRISTOPHER FREDERICK During your visit today, we recorded the following information about you: Malka Guillaume 09/08/2021 3:00 PM Signed Pt's confirmed cysto in [place] with Dr. Smith 09/28/21 @ 10:00am. Gertrudis Allergies As of Date: 09/08/2021 Noted Allergy Reaction ASPARTAME 03/06/2011 7 - Swelling Comments: Pt gets burning sensation under skin BETADINE (POVIDONE-IODINE) 04/09/2013 2 - Rash Comments: Blister NIACIN 01/18/2011 14 - Other: See Comments Comments: Niacin-Dermid Burning pain all over PENICILLINS 12/10/2003 2 - Rash SEASONAL ALLERGIES 09/05/2013 14 - Other: See Comments Comments: GRASS POLLEN-positive skin test 09-05-13 SUDAFED (PSEUDOEPHEDRINE HCL) 01/18/2011 14 - Other: See Comments Comments: Difficulty swallowing, swelling of tongue AND lips TAMIFLU (OSELTAMIVIR PHOSPHATE) 02/11/2014 12 - Shortness of Breath Comments: SOB, arm pain TRAZODONE 03/05/2020 12 - Shortness of Breath ULTRAM (TRAMADOL) 03/21/2013 Comments: Per patient contraindication due to wellbutrin Date Reviewed: 09/08/2021 Reviewed by: Trinidad Webster RN - Fully Assessed Reason for Visit: Appointment [186] Prescriptions as of 09/08/2021 - trospium (SANCTURA) 20 mg tablet Take 1 tablet by mouth twice daily. - pregabalin (LYRICA) 150 mg capsule Take 1 capsule by mouth twice daily - famotidine (PEPCID) 20 mg tablet Take 1 tablet by mouth at bedtime as needed. - nystatin (MYCOSTATIN) ointment Apply thin layer to genital area 2 times daily - nystatin 1 billion unit powd Apply powder to genital area at bedtime - losartan (COZAAR) 25 mg tablet Take 1 tablet by mouth once daily. - HYDROcodone-acetaminophen (NORCO) 5-325 mg per tablet Take 1 tablet by mouth every 8 hours as needed for pain. - azelastine (ASTELIN) 0.1% nasal spray Use 1 [place] in each nostril twice daily. - lipase/protease/amylase (ZENPEP ORAL) Take by mouth. Take one tablet prior to meals and/or snacks - MAGNESIUM ORAL Take 1,000 mg by mouth once daily. Take at bedtime - calcium carbonate (TUMS E-X SUGAR FREE ORAL) Take by mouth. - pantoprazole DR (PROTONIX) 40 mg tablet Take 1 tablet by mouth daily before breakfast. Take on empty stomach, 1/2 hr before meal. - tamsulosin (FLOMAX) 0.4 mg Take 1 capsule by mouth daily at bedtime. - metoprolol succinate ER (TOPROL XL) 25 mg 24 hr tablet Take 1 tablet by mouth once daily. - fluticasone (FLONASE) 50 mcg/actuation nasal spray Use 2 Sprays in each nostril once daily. - meloxicam (MOBIC) 15 mg tablet Take 0.5-1 tablets by mouth once daily. - fexofenadine HCl (ANÍBAL ORAL) Take by mouth. - CPAP Continue BiPAP with new settings: @ 14/8 cm of water with humidification. No new equipment is needed. - docusate sodium (COLACE) 100 mg capsule Take 1 capsule by mouth twice daily as needed. - aspirin, enteric coated (ASPIRIN, ENTERIC COATED) 81 mg EC tablet Take 81 mg by mouth once daily. - IRON, FERROUS SULFATE, ORAL Take by mouth once daily. - ASCORBIC ACID (VITAMIN C ORAL) Take by mouth once daily. - buPROPion (WELLBUTRIN) 75 mg tablet Take 150 mg by mouth three times daily. - LORazepam 1 mg ORAL tablet Take 1 mg by mouth every 6 hours as needed. Problem List As Of Date 09/08/2021 Noted Resolved LUMBOSACRAL NEURITIS NOS [[id number]] 12/10/2003 SPONDYLOLISTHESIS [Q76.2] 12/10/2003 Essential hypertension, benign [I10] 06/23/2006 SEBORRHEIC KERATOSIS NOS [L82.1] 06/23/2006 Anemia, unspecified [D64.9] 03/27/2008 08/20/2013 MONOCLON PARAPROTEINEMIA [D47.2] 03/27/2008 BENIGN NEOPLASM LG BOWEL [D12.6] 06/26/2008 DIVERTICULOSIS OF COLON W/O BLEED [K57.30] 06/26/2008 INT HEMORRHOID W/O COMPL [K64.8] 06/26/2008 Peripheral neuropathy, idiopathic [G60.9] 01/18/2011 06/13/2017 Hip replacement 03/10/2011 Anemia [D64.9] 03/10/2011 Fever [R50.9] 03/10/2011 06/13/2017 Anxiety [F41.9] 03/10/2011 Shoulder pain [M25.519] 05/11/2012 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] 05/23/2012 Shoulder arthritis [M19.019] 08/03/2012 Rotator cuff strain [S46.019A] 08/03/2012 Ulnar neuritis [G56.20] 10/20/2012 Primary localized osteoarthrosis of shoulder re*02/15/2013 Dizziness and giddiness [R42] 03/02/2013 06/13/2017 Abnormality of gait [R26.9] 03/02/2013 Shoulder joint replacement status [Z96.619] 04/09/2013 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 [Z96.*05/21/2013 06/13/2017 Pes planus of both feet [M21.41, M21.42] 09/24/2015 Arthritis, midfoot [M19.079] 09/24/2015 Glenohumeral arthritis [M19.019] 11/04/2016 Obstructive sleep apnea on CPAP [G47.33, Z99.89]10/03/1997 Major depression, recurrent, chronic (HCC) [F33*06/13/2017 HLD (hyperlipidemia) [E78.5] 06/13/2017 Left shoulder pain [M25.512] 06/21/2017 Prediabetes [R73.03] 09/11/2019 Morbid obesity with body mass index (more content not included)... Normal [facility] CNCOon 06-24-2017 CNCO Letter Jannet fermin [address] [place], [place] [id number] De La Vega[address] [facility] [address] Mr. De La Vega:The nurses and staff of the 5th floor Orthopedic nursing unit at [facility], a [facility], hope this letter finds you feelingwell and progressing in your recovery. Our team would like to thank you fortrusting and choosing us for your orthopedic needs. It was an honor for usto provide your nursing care. We know that placing our patients first andmaintaining a culture of continuous improvement each and every day isessential to the success of our organization.I hope that you have found your stay with us to have been positive. We wantto hear from you. If you have any comments, questions, or concerns about yourhospital stay please feel free to contact me, Keri Bay at [phone] [email or web address].Additionally, you will receive a survey in the mail asking you to rate thecare you received while in the hospital. Please take the time to completeand send back the survey, as it is essential to our continued success. Ipersonally review all the results and would appreciate your feedback.Thank you in advance for your participation and thank you for choosing [facility] for your healthcare needs. Sincerely,LYNN Krueger, RNNurse Rkdtzka0ft Floor OrthopedicsERose Ville [email or web address] [facility] CASE MANAGEMon 06-22-2017 CASE MANAGEM HNO ID: [id number] thor: Tera (Rn) JENNIFER Henriquezervice: Case ManagementAuthor Type: Registered NurseType: Care Mgt Progress NoteFiled: 06/23/2017 2:23 PMNote Text:CARE MANAGEMENT DISCHARGE NOTESERVICE DATE: 06/23/2017SERVICE TIME: 2:16 PM LOS: 1 dayReceived message from patient with the number to [facility] in [place], [place].[phone]. Spoke with the [facility] pharmacy staff, she informed this writerthey are unable to fill this script for shower chair. She states none ofthe pharmacies will fill a DME script. She stated the patient [facility] and purchase the shower chair due to the cost vs the drugstores. Spoke with patient and informed him of the information that wasprovided by [facility] Pharmacy staff member. Patient was also informed, due tohis insurance is an [place] Medicaid product, it is going to be difficultfinding a DME company to fill the script for the shower chair. Patientstated he will purchase the shower chair from [employer] and will contactthis sql report writer if he needs any assistance.SIGNATURE: Tera Henriquez RN PATIENT NAME: Zayda MartinoTE: June 23, 2017 : 2:16 PM PAGER/CONTACT #: [phone] [facility] CASE MANAGEM HNO ID: [id number] thor: Tera (Rn) Martinez, RNService: Case ManagementAuthor Type: Registered NurseType: Care Mgt Progress NoteFiled: 06/22/2017 12:21 PMNote Text:CARE MANAGEMENT DISCHARGE NOTESERVICE DATE: 06/22/2017SERVICE TIME: 12:18 PM LOS: 1 dayAdmission Date: 06/21/2017DISCHARGE ARRANGEMENT (list agency and phone number)HomeHANDOFF COMMUNICATION:Primary Care Physician: Dr. Zarate WVQKLFBNUYKUWM ARRANGEMENTS:Car wifeNeeds Prior to Discharge: Ready for DischargeIM letter given to patient on 06/22/2017.Patient is schedule to transition home with no skill need at this time.Patient will follow up with ortho as scheduled.SIGNATURE: Tera Henriquez RN PATIENT NAME: Zayda De La VegaDATE: June 22, 2017 : 12:18 PM PAGER/CONTACT #: [phone] [facility] CBCon 06-22-2017 Erythrocyte distribution width Auto Ratio (RBC) 13.6 % Normal 11.5-15.0 [facility] Erythrocytes (RBC) 3.74 10*6/uL Low 4.20-6.00 [facility] Erythrocytes (RBC) 0.00 10*6/uL Normal 0.00 [facility] Hematocrit (HCT) 34.5 % Low 39.0-51.0 [facility] Hemoglobin mass conc (Bld) 11.6 g/dL Low 13.0-17.0 [facility] MCH 31.0 pG Normal 26.0-34.0 [facility] MCHC mass conc (RBC) 33.6 g/dL Normal 30.5-36.0 [facility] MCV 92.2 fL Normal 80.0-100.0 [facility] Platelet mean volume (PMV) 8.9 fL Low 9.0-12.7 [facility] Platelets 232 10*3/uL Normal 150-400 [facility] WBC (Leukocytes) 9.72 10*3/uL Normal 3.70-11.00 [facility] CNDSon 06-22-2017 CN HNO ID: [id number] thor: Carlos Mckeon (Res) Jaquelineo-RicardogService: Orthopaedic SurgeryAuthor Type: ResidentType: Discharge SummariesFiled: 06/23/2017 2:32 PMNote Text: Attabril coker signed by Jose Angel Wooten at 06/26/2017 8:44 Stew Wooten MD ORTHOPED IC SURGERYDISCHARGE SUMMARYADMISSION DATE: 06/21/2017DISCHARGE DATE: 06/22/17ttending Physician: Jose Angel Portillo for Hospitalization: Left Total Shoulder ArthroplastyAdmitting Diagnosis: L shoulder glenohumeral arthritisDischarge Diagnosis: sameAdditional Diagnoses:ACTIVE PROBLEM LISTThoracic Or Lumbosacral Neuritis Or Radiculitis, UnspecifiedCongenital SpondylolisthesisEssential Hypertension, BenignOther Seborrheic KeratosisMonoclonal ParaproteinemiaBenign Neoplasm of ColonDiverticulosis of Colon (Without Mention of Hemorrhage)Internal Hemorrhoids Without Mention of ComplicationHip ReplacementAnemiaAnxietyShould er PainAdhesive Capsulitis of ShoulderShoulder ArthritisRotator Cuff StrainUlnar NeuritisPrimary Localized Osteoarthrosis, Shoulder RegionAbnormality of GaitShoulder Joint Replacement StatusPes Planus of Both FeetArthritis, MidfootGlenohumeral ArthritisOsa (Obstructive Sleep Apnea)Depressive Disorder, Not Elsewhere ClassifiedHld (Hyperlipidemia)Left Shoulder PainSurgeries During Hospitalization: Procedure(s) (LRB):ARTHROPLASTY TOTAL SHOULDER; W/ GLENOID AND PROXIMAL HUMERAL REPLACEMENT(Left)Procedures During Hospitalization: NoneConsultations: Physical TherapyCase ManagementHospital Course:The patient is a 66 year old male who has been followed by Dr. Jose Angel Fitzgerald MD in clinic for Left shoulder glenohumeral arthritis. It wasdetermined he would benefit from surgery. The procedure, its risks,benefits, and potential complications were discussed in detail with thepatient prior to surgery. Understanding of all topics was conveyed by thepatient, and consent was given for surgery. [facility].Surgery was scheduled and on 06/21/2017 he underwent a Procedure(s) (LRB):ARTHROPLASTY TOTAL SHOULDER; W/ GLENOID AND PROXIMAL HUMERAL REPLACEMENT(Left) with GETA. The procedure was tolerated well and he was sent to thepost operative recovery room in stable condition, where he also did well.Post operative x-rays in the recovery room showed appropriate location ofhardware. He was subsequently sent to his hospital room for postoperativemanagement.Once on the floor his postoperative course was unremarkable and he didwell. His diet was advanced which he tolerated. His pain was wellcontrolled on oral narcotics and PRN IV; this was eventually transitionedto oral medication alone prior to discharge. He worked with Physical andOccupational Therapy starting on POD#1 who recommended he be dischargedhome. His dressing remained clean dry and intact throughout his stay. Heremained afebrile with stable vital signs throughout his stay. He wasstable for discharge to home on POD#1.Complete and comprehensive discharge instructions were provided to thepatient as well as necessary prescriptions. The patient had no furtherquestions and was advised to call with any questions, concerns, orproblems.Patient was hemodynamically stable postoperatively.Relevant labs included:Hemoglobin (g/dL)Date Value06/22/2017 11.6 (L)06/13/2017 13.609/ 13.5Hematocrit (%)Date Value06/22/2017 34.5 (L)06/13/2017 42.709 39.9Discharge Antibiotics: None Prior to surgery the patient was treated withantibiotics and continued with antibiotics 24 hours postoperativelyTransfers: PACU and then to the hospital surgical floor when PACU criteriawas met.DVT Prophylaxis: Sequential Compression DevicesPain Control: Oral narcoticsComplications: Continued throughout the hospital course withoutcomplications.Patient Condition @ Discharge: GoodDischarge Disposition: Home/Self CareOther Information: NoneDischarge Activity/Weight Bearing Status: Non-weight bearing. No ER. FF0-120. Ok for hand/wrist/elbow ROM.The patient was instructed to follow-up as scheduled belowVan [facility] AppointmentsDate Time Provider Department Hauada8807/05/2017 11:00 AM XR [facility] RGNEU [facility]07/05/2017 11:30 AM Yves (Rn) SANDRA Edgar [facility]07/18/2017 1:20 PM Edinson LOPEZWS [facility] IUTBAOO4407/28/2017 1:45 PM Jose Angel Verdugo AND NA12/15/2017 9:15 AM Shreyas [facility]AMIRANO [facility] Medications: Discharge Medication List as of 06/22/2017 10:30 AMSTART taking these medicationsdocusate sodium (COLACE) 100 mg capsuleTake 1 capsule by mouth twice daily as needed.Print RX, Disp-60 capsule, I-0szjPONCVE-xmrjdnbabsxdf (PERCOCET) 5-325 mg tabletTake 1-2 tablets by mouth every 4 hours as needed for Pain.Print RX, Disp-80 tablet, T-6ZAYOVmfwfyr-naoldbhsqlasd (NORCO) 5-325 mg per tabletTake 1-2 tablets by mouth every 4 hours as needed for Pain.Print RX, Disp-80 tablet, R-0CONTINUE these medications which have NOT CHANGEDmupirocin (BACTROBAN) 2 % ointmentApply 1/2 inch of ointment with a Qtip to both nostrils in the morning ANDevening for 5 consecutive days before surgeryNormal, Disp-1 Tube, R-0aspirin, enteric coated (ASPIRIN, ENTERIC COATED) 81 mg EC tabletTake 81 mg by mouth once daily.Historical MedBIPAPHistorical MedSALMON OIL/OMEGA-3 FATTY ACIDS (SALMON OIL-1000 ORAL)Take by mouth once daily.Historical MedIRON, FERROUS SULFATE, ORALTake by mouth once daily.Historical MedCOLLAGEN MISConce daily.Historical MedASCORBIC ACID (VITAMIN C ORAL)Take by mouth once daily.Historical MedPOTASSIUM ORALTake by mouth once daily.Historical Medmetoprolol succinate ER (TOPROL XL) 25 mg 24 hr tabletTake 1 tablet by mouth once daily.Normal, Disp-90 tablet, R-3Dx: 1. Essential hypertension, benignperphenazine 2 mg tabletTake 2 mg by mouth twice daily.Historical MedbuPROPion (WELLBUTRIN) 75 mg tabletTake 150 mg by mouth three times daily.Historical Medfluticasone 50 mcg/actuation nasal sprayUse 1 [place] in each nostril as needed.Historical Medloratadine (CLARITIN) 10 mg ORAL tabletTake 10 mg by mouth once daily.Med UpdateLORazepam 1 mg ORAL tabletTake 1 mg by mouth every 6 hours as needed.Med UpdateSTOP taking these medicationsmeloxicam (MOBIC) 7.5 mg tabletComments:Reason for Stopping:SIGNATURE: Carlos Meeks MD PATIENT NAME: Zayda De La VegaDATE: June 23, 2017 : 2:29 PM PAGER: [phone] [facility] NURSING PROGon 06-22-2017 NURSING PROG HNO ID: [id number] thor: Janny (Rn) JENNIFER Gomezervice: NursingAuthor Type: Registered NurseType: Nursing Progress NoteFiled: 06/22/2017 12:23 PMNote Text: Nursing Progress NotePatient Name: Zayda De La VegaMRN: [id number] Location: [facility]/ [place]-* Daily Note:0810 .Assumed care of pt. Lt shoulder dressing dry and intact.Lt radial pulse strong. States pain is at 4. Reviewed exercises, IS anduse of post op medications. Taking fluids well.This note was completed by: Janny Gomez RN Medicatd with 1 norco for pain and increased qball to 8 c.1100 worked with PT at bedside. Pain is at 3 [id number] .Discharge instructions given including signs and symptoms ofinfection, care of the incision, post op medications with side effects,diet and activity at home. Pt has good understanding of what wasinstructed. Showed how to remove iltat4718 discharged to front of hospital with all belongings in care of hiswife viq wheelchair. [facility] PROGRESSon 06-22-2017 PROGRESS HNO ID: [id number] thor: Tierra ([facility]) DionService: General Internal MedicineAuthor Type: Nurse PractitionerType: Progress NotesFiled: 06/22/2017 3:24 PMNote Text:INPATIENT PROGRESS NOTESName: Zayda Neto De La VegaMRN: [id number] of Service: June 22, 2017SUBJECTIVE: Seen and examined at bedside. Patient states pain is minimalat level 2 now. He denies any dizziness/lightheadedness. He deniesnausea or vomiting, chest pain, palpitations or shortness of breath.Hehas no ptosis and has slight cough after doing IS.PERTINENT ROS:All others reviewed and negative except as per HPIMEDICATIONS:Current hospital medications:HYDROcodone 5 mg - acetaminophen 325 mg tablet (NORCO) 1-2 tablet ORAL q 4H PRNloratadine 10 mg tab(s) (CLARITIN) 10 mg ORAL DAILYperphenazine 2 mg tab(s) 2 mg ORAL BIDmetoprolol succinate ER 25 mg tab(s) (TOPROL XL) 25 mg ORAL DAILYbuPROPion 150 mg tab(s) (WELLBUTRIN) 150 mg ORAL TIDaspirin, enteric coated 81 mg tab(s) (ASPIRIN, ENTERIC COATED) 81 mg ORALDAILYlactated ringers infusion 50 mL/hr INTRAVENOUS CONTINUOUSmetoclopramide HCl 10 mg injection (REGLAN) 10 mg INTRAVENOUS q 6 H PRNpolyethylene glycol 3350 17 g packet (MIRALAX, GLYCOLAX) 17 g ORAL DAILYPRN[START ON 06/23/2017] bisacodyl EC 10 mg tab(s) (DULCOLAX) 10 mg ORAL DAILYaluminum-magnesium hydroxide-simethicone 200-200-20 mg/5 mL 30 mL(MAALOX,MYLANTA,MAG-AL PLUS) 30 mL ORAL q 6 H PRNHYDROmorphone 0.4 mg injection (DILAUDID) 0.4 mg INTRAVENOUS q 4 H PRNropivacaine 0.2 % 1,000 mg in NaCl infusion (ON-Q) (NAROPIN) 500 mLPERIPHERAL NERVE CATHETER CONTINUOUSbenzocaine-menthol 1 Lozenge lozenge (CEPACOL) 1 Lozenge ORAL q 3 H PRNLORazepam 1 mg tab(s) (ATIVAN) 1 mg ORAL TIDPHYSICAL EXAM: 809 06/22/1702544BP: 123/69 128/75 122/63 122/71Pulse: 95 90 92 81Resp: 18 18 18 18Temp: 36.8 ?C (98.2 ?F) 36.6 ?C (97.9 ?F) 36.7 ?C (98 ?F) 36.6 ?C (97.8?F)TempSrc: Oral Oral Oral OralSpO2: 93% 93% 94% 93%Weight:Height:GEN: well appearing, gentleman in no acute distress.SKIN: skin color, texture, turgor normal, no suspicious rashes or lesions.NECK: no JVD. Supple, no carotid bruitsLUNGS: Clear ANTOLIN. No wheezes.CV: RRR. Normal s1/s2. No murmurs appreciated.ABD: Soft, non-tender, non-distended. Bowel sounds present.EXT: No deformities or edema. Peripheral pulses normal.surgical dressingto left shoulder intact, dry and intact q ball in place fingers warm andmobile some numbness but better nowNEURO: alert oriented x3 Grossly intact. No focal deficits.DATA:CBC, Coags, BMP, Mg, PhosRecent Labs 06/22/853817XGB 9.72HB 11.6*HCT 34.5*PLT 232ASSESSMENT AND PLAN:Postoperative anemia due to acute blood loss [D62]: hgb 11.6 stable.Patient is asx and VSS. Will continue to monitor, check CBC tomorrow.Primary osteoarthritis of left shoulder [M19.019], Status post totalreplacement of left shoulder [Z96.619]: with Dr Wooten on 06/21/2017.Continue with PT/OT. Encourage strict IS.Acute postoperative pain of left shoulder[G89.18]:. Pain controlled seeHPI Pain control goals were discussed. Continue with current medications.Control pain with meds ordered and Q-ball adjustments.Constipation [K59.00]: continue with bowel regimen while taking painmedications.DVT ppx: ASA 81 mg bid . SCDs. Ambulation with PT/OT.HLD (hyperlipidemia) [E78.5]: diet controlledAnxiety [F41.9]: continue wellbutrin, perphenazineEssential hypertension, benign [I10]: BP is 122/71 , continue metoprolol,MARCELINA (obstructive sleep apnea) [G47.33]: use CPAP machine?Case management for dc planning-home todayDiscussed and developed plan of care with Dr. Chavis.Tierra Vigil, CNPSeptember 201611:27 AM Normal [facility] PROGRESS HNO ID: [id number] thor: Carlos Mckeon (Res) [facility] [place]Service: Orthopaedic SurgeryAuthor Type: ResidentType: Progress NotesFiled: 06/22/2017 6:34 AMNote Text:ORTHOPAEDIC SURGERY PROGRESS NOTEPATIENT NAME: Zayda Duque CeferinoMRN: [id number]: Ezequiel/P: Neto TSAS: No acute events O/NLabs:VITALS: BP 123/69 Pulse 95 Temp 36.8 ?C (98.2 ?F) (Oral) Resp 18 Ht 172.7 cm (5' 8) Wt 114.5 kg (252 lb 8 oz) SpO2 93% BMI 38.39kg/p1QKRCZGBEM PHYSICAL EXAMINATIONGeneral: AAOx3. NAD.Dressing c/d/i; no drainage noted, appropriate incisional tenderness.+ Finger wiggle, + EPLPainless PROM all fingersSILT Ax/Med/Rad/UlnFingers Dana/WarmBrachium/Antebrachium compartments softSCDs in placeIMPRESSION/PLAN: POD#1 s/p L TSA. - Pain control --> PO narcotics + breakthrough prn IV medications; - Nerve catheter management per APMS - Encourage aggressive IS - HLIV once tolerating PO - PT/OT consults --> operative extremity WB status: NOn-weight Bearing.No ER. 0-120 FF. Ok for hand, wrist, elbow ROM. - 24-hr daniella-op ABx completed - Dressing change POD#2 - Drain: will assess depending on drain output - DVT ppx: SCDs; Ambulation - Dispo: Discharge to home todayCarlos Meeks MD06/22/20176:00 AMOrthopaedic Surgery PGY 2Pager: [phone] [facility] THERAPY NTon 06-22-2017 THERAPY NT HNO ID: [id number] thor: Floresita (Ot) GwynopherService: Occupational TherapyAuthor Type: Occupational TherapistType: Therapy (PT/OT/Speech/Resp)Filed: 06/22/2017 1:45 PMNote Text:Occupational Therapy EvaluationSERVICE DATE: 06/22/2017SERVICE TIME: 1110 to 1155ROOM: [place] [id number] Discharge Disposition: HomeAnticipated Discharge Needs: Physical Assist at HomePhysical Assist at Home for: Shopping;Laundry;Cleaning (home exerciseprogram)OT Recommendations to Nursing: OOB for mealsOT 6 Clicks Score: 16Precautions/Activity Restrictions: Shoulder Precautions;Fall RiskPrecaution/Activity Restriction Comments: s/p left TSA, arthritis bilatfeetShoulder Precautions: (NWB left shoulder)ASSESSMENT:Patient presents with low complexity assessment, as pt had TSA and PMHX ofleft TSA and arthritis bilat feet . Requires skilled OT for promotion ofindependence and safety of self cares and functional mobility.Tolerated Full SessionOccupational Therapy Problem List: Education Deficit;Pain;SafetyDeficits;Im paired Self Care;Balance Impaired;Decreased SkinIntegrity;Decreased Range Of Motion;PROM/PositioningPatient /Caregiver Goals: Go HomeGoals for Plan of Care:Able to perform HEP with: SupervisionUpper Body Bathing with: IndependentUpper Body Dressing with: IndependentLower Body Bathing with: IndependentLower Body Dressing with: IndependentTolerate (minutes of functional activity): 45Functional Activity with: SupervisionRehab Potential: GoodPLAN:Treatment Frequency (times per week): 2 Current admissionTreatment Interventions: Education;Self Care / Home Management;FunctionalMobility Training;Wound Care Management;Pain ManagementPlan of Care developed with: Patient;FamilyTREATMENT INTERVENTIONS:Therapy Diagnosis: Reduced mobility-other;Decreased activities of dailyliving (ADL)Interventions Provided: Evaluation;Therapeutic Exercise (06141);Self CareHome Management (97884)$ Evaluation-Low (87852) Billed Units: 1 unitTherapeutic Exercise (55022) Treatment Minutes: 131 unitSkilled Intervention(s): Instruction in therapeutic exercise supineexercises to L shoulder 90 degrees passive forward flexionVerbal and tactile cuing providedEducation in AROM to distal joints on sx sideSelf Penitentiary Management (93210) Treatment Minutes: 252 unitsSkilled Intervention(s): Provided instruction, cuing and facilitation forupper body dressing mod A using drop arm technique for donning shirtProvided instruction, cuing and facilitation for lower body dressing mod Afor donning underwear, slip on shoes, and pants at edge of bedProvided instruction, cuing and facilitation for bathing to not getincision wet before Tuesday. Pt to take off large bandage on andQ-ball tape off late Tuesday. Discussed pain and edema control techniques.Education in TSA precautions and protocol according to Dr Wooten onhandout reviewed with pt and spouse.Total Timed Code Treatment Minutes: 38Total Treatment Time (minutes): 45FUNCTIONAL G CODE:OT 6 Clicks Score: 16 (06/22/171109)Self Care Current Status (G8987): CK (06/22/17 1110)Self Care Goal Status (G8988): CK (06/22/17 111)Based on clinical assessment and the score on the 6 Clicks FunctionalAssessment Tool, the G code and corresponding severity modifiers aredocumented above.SUBJECTIVE:Current Hospital Course: Chart reviewed; Pt 66 yo M admitted on 06/21/17for L TSA by Dr Wooten.Patient Report: I want to be able to do regular stuff.Home EnvironmentPatient Lives With: Significant Other (in a 2 stroy house)Assistance Available: 24 HourEntry To Home: Stairs;With RailNumber Of Stairs Into Home: 2 (with bilat rails from garage)Number Of Stairs To Bed/Bath: 14Stairs to Bed/Bath with: Bilateral RailTub/Shower Type: 1/2 bath on 1st, full bath on 2nd with walk in showerwith shower seat, HHS, grab barsLaundry: will doEquipment Owned: Grab Bars-Shower;Hand Held Shower;Shower Chair (chairheight toilet)Prior Functional Level: Within Functional Limits (Ind amb w/o AD, indADLs, drives)OBJECTIVE:CURRENT FUNCTIONAL STATUS:Current Activities of Daily Living Assist LevelFeeding Set UpGrooming Minimal AssistanceBathing Upper Body Minimal AssistanceBathing Lower Body Minimal AssistanceDressing Upper Body Moderate AssistanceDressing Lower Body Maximal AssistanceToileting Minimal AssistanceInstrumental Activities of Daily Living Assist LevelMeal/Beverage PrepLight CleaningLaundryMedication Management with StrategiesFunctional Mobility Assist LevelRollingSupine to SitSit to SupineScootingSit to Stand SupervisionStand to Sit SupervisionBed to ChairToilet/CommodeFunctional Mobility SupervisionPlease see discipline specific clinical documentation flowsheet forcomplete details for this therapy evaluation/treatment.SIGNATURE : SARAN Harris/Neto PATIENT NAME: Zayda Duque CeferinoDATE: June 22, 2017 : 1:22 PM PAGER: [phone] [facility] THERAPY NT HNO ID: [id number] thor: Chrissie (Pt) MauserService: Physical TherapyAuthor Type: Physical TherapistType: Therapy (PT/OT/Speech/Resp)Filed: 06/22/2017 9:48 AMNote Text:Physical Therapy EvaluationSERVICE DATE: 06/22/2017SERVICE TIME: 0840 to 0902ROOM: [place] [id number] Discharge Disposition: Home (No PT needs indicated after DC)Anticipated Discharge Needs: Physical Assist at HomePhysical Assist at Home for: Cleaning;Laundry;Meals;SelfCar e;Shopping;TransportationRecom mended Discharge Equipment: Cane (Issued on 06/22/17)PT Recommendations to Nursing: Ambulate with device;To bathroom;Inhalls;OOB for meals (Pt safe to ambulate on unit ad deena under distantstaff super)Ambulation Device: CanePT 6 Clicks Score: 24Precautions/Activity Restrictions: Shoulder Precautions;Fall RiskPrecaution/Activity Restriction Comments: s/p left TSA, arthritis bilatfeetShoulder Precautions: (NWB left shoulder)ASSESSMENT :Patient presents with left total shoulder replacement. Requires skilled PTfor safety assessment to determine if patient has any home going orequipment needs.Tolerated Full SessionPatient /Caregiver Goals: Go Home;Care For SelfGoals for Plan of Care:No goals established. Eval only.PLAN:Treatment Frequency (times per week): Discontinue Therapy ServicesReasons Therapy Services Discontinued: Goals met;Independent in allfunctional mobility;No skilled needsTREATMENT INTERVENTIONS:Therapy Diagnosis: Reduced mobility-other;Unsteadiness onfeet;Abnormalities of gait and mobility-otherInterventions Provided: Evaluation;Gait Training (01043)$ Evaluation-Low (76138) Billed Units: 1 unitGait Training (02893) Treatment Minutes: 161 unitSkilled Intervention(s): Instruction in sit to stand technique with properhand placement and body positioning at edge of bed/chair, Instruction instand to sit technique with LE's touching chair/bed and reaching back forsurface, Instruction in sequencing, gait pattern, Instruction incorrection of gait deviations, Instruction in stair negotiation,Instruction in use of equipment, cues for sequence and pattern.Transfers with supervision.Patient ambulated 225 ft without AD on 1st trial with super. Patient wasnoted to have moderate lateral sway and was reaching for hallway rails foradditional support.Patient ambulated 2nd trial of 225 ft using a std cane with supervision.Gait improved with decreased lateral sway and subjective report frompatient that he felt more stable using cane.Patient was issued a std cane for home going.Up/down 9 steps using single rail with left hand, pt holding cane In lefthand. SBA for safety. Patient utilizing step over sequencing when going upand down.Patient mobilizing safely. No further PT needs at this time.Total Timed Code Treatment Minutes: 16Total Treatment Time (minutes): 22FUNCTIONAL G CODE:PT 6 Clicks Score: 24 (06/22/17 0840)Mobility: Walking and Moving Around Current Status (G8978): ()Mobility: Walking and Moving Around Goal Status (G8979): ()Mobility: Walking and Moving Around Discharge Status (G8980): ()Based on clinical assessment and the score on the 6 Clicks FunctionalAssessment Tool, the G code and corresponding severity modifiers aredocumented above.SUBJECTIVE:Current Hospital Course: Chart reviewed; Patient is a 66 year old maleadmitted on 06/21/17 for left TSA.Patient Report: I feel ok.Home EnvironmentPatient Lives With: Significant Other (in a 2 stroy house)Assistance Available: 24 HourEntry To Home: Stairs;With RailNumber Of Stairs Into Home: 2 (with bilat rails from garage)Number Of Stairs To Bed/Bath: 14Stairs to Bed/Bath with: Bilateral RailTub/Shower Type: 1/2 bath on 1st, full bath on 2nd with walk in showerwith shower seat, [facility], jake barsLaundry: will doEquipment Owned: Grab Bars-Shower;Hand Held Shower;Shower Chair (chairheight toilet)Prior Functional Level: Within Functional Limits (Ind amb w/o AD, indADLs, drives)OBJECTIVE:CURRENT FUNCTIONAL STATUS:Current Functional Mobility Assist Level Additional InformationRollingSupine to Sit Independent (increased time/effort to complete)Sit to SupineScootingSit to Stand SupervisionStand to Sit SupervisionBed to ChairToilet/CommodeGait Supervision Gait Device: None;Cane Gait Distance (feet): 225 ft w/o AD, 225 ft with std caneStairs Stand By Assistance Stairs Device: RailNumber of Stairs: 9 (step over sequencing)Curb StepCar TransferGeneral Gait Deviations: Venita decreased;Lateral sway increased;Flexedtrunk posture;Wide base of supportPlease see discipline specific clinical documentation flowsheet forcomplete details for this therapy evaluation/treatment.SIGNATURE : Chrissie Valle PT PATIENT NAME: Zayda De La VegaDATE: June 22, 2017 : 9:38 AM PAGER/CONTACT #: [phone] [facility] ANES Michaela 06-21-2017 ANES POST HNO ID: [id number] thor: John PakService: AnesthesiologyAuthor Type: AnesthesiologistType: Anesthesia PostOpFiled: 06/21/2017 3:55 PMNote Text:POST ANESTHESIA EVALUATION NOTESERVICE DATE: 06/21/2017SERVICE TIME: 13:45DOB: 1950Vitals: 06/21/1713Temp: 36.4 ?C (97.5 ?F) 37.6 ?C (99.7 ?F) 37.4 ?C (99.3 ?F) 36.9 ?C (98.4?F) 06/21/17132BP: 135/63 112/66 120/60 124/65 06/21/17132Pulse: 72 74 77 87 06/21/17132Resp: 18 18 18 18 06/21/17132SpO2: 95% 95% 95% 93%Validated Vital Signs: YesPOST ANES STATUS: No apparent anesthetic complications. The patient isappropriately hydrated with stable respiratory and cardiovascular status.Patient has safe and adequate airway control. The patient has appropriatepain relief and no significant post operative nausea or vomiting. Thepatient has achieved baseline mental status.Further assessment by Anesthesia Service: NoneOther Remarks:SIGNATURE: John Pak MD PATIENT NAME: Zayda De La VegaDATE: June 21, 2017 : 3:55 PM PAGER/CONTACT #: [facility] ANES PREOPon 06-21-2017 ANES PREOP HNO ID: [id number] thor: John PashaService: AnesthesiologyAuthor Type: AnesthesiologistType: Anesthesia PreOpFiled: 06/21/2017 8:13 AMNote Text: ANESTHESIOLOGY DAY OF SURGERY NOTESERVICE DATE: 06/21/2017SERVICE TIME: 7:44 AMDOB: 1950Procedure(s) (LRB):ARTHROPLASTY TOTAL SHOULDER; W/ GLENOID AND PROXIMAL HUMERAL REPLACEMENT(Left)Surgeon(s):Er manny Washington RicchettiEstimated body mass index is 38.1 kg/(m2) as calculated from thefollowing: Height as of 06/17/17: 172.7 cm (5' 8). Weight as of 06/17/17: 113.7 kg (250 lb 9.6 oz).Most recent hematocrit and potassium results:Hematocrit 42.7 06/13/2017Potassium 4.7 06/13/2017ANES DOS/PREOP NOTE:Vitals:There were no vitals filed for this visit.ACTIVE PROBLEM LISTThoracic Or Lumbosacral Neuritis Or Radiculitis, UnspecifiedCongenital SpondylolisthesisEssential Hypertension, BenignOther Seborrheic KeratosisMonoclonal ParaproteinemiaBenign Neoplasm of ColonDiverticulosis of Colon (Without Mention of Hemorrhage)Internal Hemorrhoids Without Mention of ComplicationHip ReplacementAnemiaAnxietyShould er PainAdhesive Capsulitis of ShoulderShoulder ArthritisRotator Cuff StrainUlnar NeuritisPrimary Localized Osteoarthrosis, Shoulder RegionAbnormality of GaitShoulder Joint Replacement StatusPes Planus of Both FeetArthritis, MidfootGlenohumeral ArthritisOsa (Obstructive Sleep Apnea)Depressive Disorder, Not Elsewhere ClassifiedHld (Hyperlipidemia)PAST MEDICAL HISTORYDiagnosis Date- Anxiety- Benign neoplasm of colon- Depressive disorder, not elsewhere classified- Diverticulosis of colon (without mention of hemorrhage)- HLD (hyperlipidemia) 06/13/2017- Internal hemorrhoids without mention of complication- MARCELINA (obstructive sleep apnea) 1997- Peripheral neuropathy (HCC)- Shoulder arthritisPAST SURGICAL HISTORYProcedure Laterality Date- ARTHROPLASTY TOTAL SHOULDER 04/03/2013 Right shoulder- COLONOS W/REM POLYP SNARE 06/26/08- COLONOSCOP W/ OR W/O BRSH SPEC 08/11/1992 Colonoscopy- PAST SURGICAL HISTORY OF 1995 L5-S1 spinal fusion with pins, rods, and bolts- PAST SURGICAL HISTORY OF 03/2011 Right hip revision- PAST SURGICAL HISTORY OF 1970 right shoulder surgery- TOTAL HIP REPLACEMENT 1992 Hip replacement, total RIGHTFAMILY HISTORYProblem Relation Age of Onset- Cancer Father KIDNEY- Brain Tumor [OTHER] Father- Cancer Sister thyroid- Diabetes BrotherSocial History:Social HistorySubstance Use Topics- Smoking status: Former Smoker Packs/day: 1.00 Years: 10.00 Types: Cigarettes Quit date: 10/27/1983- Smokeless tobacco: Never Used- Alcohol use Yes Comment: very rarelyNo current facility-administered medications on file prior to encounter.Current Outpatient Prescriptions on File Prior to Encounter:metoprolol succinate ER (TOPROL XL) 25 mg 24 hr tablet Take 1 tablet bymouth once daily.perphenazine 2 mg tablet Take 2 mg by mouth twice daily.buPROPion (WELLBUTRIN) 75 mg tablet Take 150 mg by mouth three timesdaily.fluticasone 50 mcg/actuation nasal spray Use 1 [place] in each nostril asneeded.loratadine (CLARITIN) 10 mg ORAL tablet Take 10 mg by mouth once daily.LORazepam 1 mg ORAL tablet Take 1 mg by mouth every 6 hours as needed.Current Facility-Administered Medications:lidocaine 10 mg/mL (1 %) 1-2 mg injection (XYLOCAINE) 0.1-0.2 mLINTRADERMAL PRN Mary Thomas) Dakotalactated ringers infusion 5-30 mL/hr INTRAVENOUS CONTINUOUS Mary Duncan ([place]) Last Rate: 30 mL/hr at 06/21/17 0715 30 mL/hr at 06/21/17 0715vancomycin 1.5 g in D5W 250 mL 1.5 g INTRAVENOUS Pre-Op Once Mary Thomas)Dakotaclindamycin 900 mg in D5W 50 mL (CLEOCIN) 900 mg INTRAVENOUS Pre-Op OnceMary Thomas) Dakotaacetaminophen 1,000 mg tab(s) (TYLENOL) 1,000 mg ORAL ONCE Mary Thomas)Lisaergies:ALLERGIESAl lergen Reactions- Aspartame Swelling Pt gets burning sensation under skin- Betadine [Povidone-* Rash Blister- Niacin Other: See Comments Niacin-Dermid Burning pain all over- Penicillins Rash- Seasonal Allergies Other: See Comments GRASS POLLEN-positive skin test 09-05-13- Sudafed [Pseudoephe* Other: See Comments Difficulty swallowing, swelling of tongue AND lips- Tamiflu [Oseltamivi* Shortness of Breath SOB, arm painDOS EXAM: Adequate NPO status: YesAnesthetic risks, benefits, alternatives, personnel and consent discussed:YesPatient agrees to proceed: YesPrevious Anesthesia: No history of adverse event.Airway Assessment: MP 4; Neck ROM: Full ROM without neurologic symptoms;Airway Evaluation: Small mouth opening, big tongue, Short Neck, Thick neckand Travis PresentSymptoms of Sleep Apnea: + for MARCELINA, + CPAPDentition: Teeth intactAdditional Physical Exam:Lungs: Patient health status unchanged since recent history and physical.See history and physical for exam findings.Cardiac: Patient health status unchanged since recent history andphysical. See history and physical for exam findings.Additional Pertinent Findings: N/ABlood Products: Not anticipated for this procedure.Anesthetic Plan: General, Standard ASA MonitorsPain Management Plan: Parenteral or Oral and Peripheral Nerve CatheterASA Class: 3Other Medical Problems: NoneChronic Beta Tonya medication administered within 24 hours: YesECG 06/13/17Diagnosis:SINUS RHYTHM WITH 1ST DEGREE AV BLOCKCOMPLETE RIGHT BUNDLE BRANCH BLOCKLEFT ANTERIOR FASCICULAR BLOCK*BIFASCICULAR BLOCK*ABNORMAL ECG?Ventricular Rate : 61 ?BPMAtrial Rate : 61 ?BPMP-R Interval : 220 ?msQRS Duration : 166 ?msQ-T Interval : 448 ?msQTC Calculation(Bezet) : 450 ?msP Fertile : 75 ?degreesR Fertile : -67 ?degreesT Fertile : 40 ?degrees?Test Reason : pre opExternal Stress Test 06/26/14Normal stress testPreserved EFPrevious basal inferoseptal infarct cannot be excludedI have interviewed and examined the patient. I have reviewed the medicalrecord and/or the pre-anesthesia evaluation, pertinent labs, and testresults.Significant changes in the patient's condition since the History andPhysical, not otherwise documented in primary service progress notes: NoWBC (k/uL)Date Value06/13/2017 6.44RBC (m/uL)Date Value06/13/2017 4.37Hemoglobin (g/dL)Date Value06/13/2017 13.6Hematocrit (%)Date Value06/13/2017 42.7MCV (fL)Date Value06/13/2017 97.7MCH (pG)Date Value06/13/2017 31.1MCHC (g/dL)Date Value06/13/2017 31.9RDW-CV (%)Date Value06/13/2017 13.8Platelet Count (k/uL)Date Value06/13/2017 258MPV (fL)Date Value06/13/2017 9.0Glucose (mg/dL)Date Value06/13/2017 87BUN (mg/dL)Date Value06/13/2017 16Creatinine (mg/dL)Date Value06/13/2017 0.64 (L)Sodium (mmol/L)Date Value06/13/2017 139Potassium (mmol/L)Date Value06/13/2017 4.7Chloride (mmol/L)Date Value06/13/2017 103CO2 (mmol/L)Date Value06/13/2017 26Protein, Total (g/dL)Date Value06/30/2016 7.2Albumin (g/dL)Date Value06/30/2016 4.2Calcium (mg/dL)Date Value06/13/2017 9.3Alkaline Phosphatase (U/L)Date Value06/30/2016 51Bilirubin, Total (mg/dL)Date Value06/30/2016 0.2AST (U/L)Date Value06/30/2016 21ALT (U/L)Date Value06/30/2016 26ANA (no units)Date Value07/01/2011 Positive (A)Anti-SSA (AI)Date Value05/28/2011 <0.2Anti-SSB (AI)Date Value05/28/2011 <0.2Cryoglobulin Quant, Blood (ug/mL)Date Value08/23/2008 37Hep C Antibody IA (no units)Date Value11/11/2015 NegativeURINLAYSISSpecific [place], UrDate Value Ref Range Mxccdg5907/01/2011 1.012 1.005 - 1.030 Final Glucose, UrineDate Value Ref Range Tnselk3307/01/2011 Negative NEGAT mg/dL Final Bilirubin, UrineDate Value Ref Range Stoytg5807/01/2011 Negative NEGAT Final Ketones, UrineDate Value Ref Range Tpppii5207/01/2011 Negative NEGAT Final Hemoglobin/Bloo d,UrDate Value Ref Range Ikldhf7407/01/2011 Negative NEGAT Final Protein, UrineDate Value Ref Range Bflrss2007/01/2011 Negative NEGAT mg/dL Final WBC, UrineDate Value Ref Range Rkeiew6807/01/2011 0-5 R05 /HPF Final Anti-SSADate Value Ref Range Ecknkq5405/28/2011 <0.2 <1.0 AI FinalComment:NegativeNegative: <1.0 AIPositive: >0.9 AI This contains updated information obtained within 48 hours ofSurgery/Procedure.SIGNATURE: Nusrat Kim MD PATIENT NAME: Zayda De La VegaDATE: June 21, 2017 : 7:43 AM CSN: [id number] [facility] BRIEF OP NOTon 06-21-2017 BRIEF OP NOT HNO ID: [id number] thor: Carlos Mckeon (Erasmo) Monicaervice: Orthopaedic SurgeryAuthor Type: ResidentType: Brief Op NoteFiled: 06/21/2017 4:06 PMNote Text:BRIEF OPERATIVE / PROCEDURE NOTELOG ID: [id number]/Procedure Date: 06/21/2017Incision/Procedure Start Time: 10:53 AMIncision Close/Procedure End Time:Surgeon(s)/Proceduralist( s) and Quarter Trimmer(s):Surgeon(s) and Role: * Jose Angel Wooten - Primary * Anurag Gallegos MD - Resident - Observing * Carlos Meeks - Resident - ObservingPhysician Quarter Trimmer: Pat Thomas) DentonProcedure(s): L TSAAnesthesia: GeneralFindings: see dictated op noteEstimated Blood Loss: 200 mlsSpecimens: NoneComplications: NonePre-Op/Pre-Procedure Diagnosis: Left Glenohumeral ArthritisPost-Op/Post-Procedur e Diagnosis: Glenohumeral arthritis, left [M19.012]SIGNATURE: VÍCTOR NOBLES DO PATIENT NAME: Zayda De La VegaDATE: June 21, 2017 : 12:46 PM PAGER/CONTACT #:Zayda De La Vega will require more than a 7 day supply of 30 morphineequivalent doses per day (MEDD) of narcotic prescription due to theirmajor orthopaedic surgery. Zayda De La Vega will require a minimum 2-weeksupply of >30 MEDD to ensure adequate pain control every 4-6 hours, asthis is the level that was controlling their pain in the hospital. [facility] ID: [id number] thor: Queenie (Rn) Herve, JENNIFERervice: Case ManagementAuthor Type: Registered NurseType: Care Mgt Initial AssessmentFiled: 06/21/2017 3:54 PMNote Text:CARE MANAGEMENT: ASSESSMENT AND DISCHARGE PLANSERVICE DATE: 06/21/2017SERVICE TIME: 3:49 PMPRIMARY CARE PHYSICIAN:SABINO Sotohone: [phone] STATUS: InpatientPOTENTIAL DISCHARGE PLANSHomePatient/Representativ e Stated Goals: To have less painNeeds Prior to Discharge: NoneHealth Insurance: Aetna MedicareLiving Arrangement: HomeLives With: SpouseFinancial Resources: RetiredPrimary Contact:Extended Emergency Contact InformationPrimary Emergency Contact: Faina De La Vegaddress: [address], [place] [address]Ggoy Okqhubuk: SpouseSupportive: YesOther Important Patient Contacts: NoneCAREGIVER ASSESSMENT:Caregiver is ready, willing and able to meet the patient's needs asrecommended by the inter-professional team? YesPatient's transition needs and plan for meeting these needs: canassist as neededDoes the patient have an acute stroke diagnosis, or has the patient had astroke during this admission? NoADVANCE DIRECTIVES:Does Patient Have Advance Directives? Yes: Living WillDurable Power of Cellular Equipment Repairer for Health Care: , copy is in chartDoes Patient Have Concerns About Advance Directives? NoPRIOR TO ADMISSION:Baseline Mental Status: Alert AND Oriented, Person, Place , Time, Situationand Age AppropriateFunctional Status: IndependentDoes Patient Currently Receive Any Community Services or Home Care? NoneEquipment Prior to Admission: CrutchesElevated toilet seatWalkerHEALTH:Health Issues Impacting Discharge Plan: LTSAHealth Literacy Issues: NoPSYCHOSOCIAL:Is the Patient Psychosocially Complex? NoFamily/Patient Understanding of Illness/Diagnosis: yesMedication Adherence:Do you forget to take your medications? I do not forget to take mymedicationHave you ever stopped taking medications because you felt worse? None ofthe timeHave you ever taken less of your medication than what was prescribed byyour doctor? None of the timeIn the past 3 months, have you had issues obtaining one or more of yourmedications? None of the timeAre you interested in bedside delivery of your medications? YesFood Concerns:In the Last Month, Have You had Trouble Getting Food? No trouble gettingfoodDuring the Last Month, Have You Worried Whether Your Food Would Run OutBefore You Had Enough Money to Buy More? NoPsychosocial Needs: NoneUTILIZATION:Last Admission Date: Previous admit date: 04/03/2013Is this Within the Past 30 days? NoHas the Patient Been in a Fci Facility in the Past 30 days? NoFREEDOM OF CHOICE EXPLAINED:N/DEVON COMMUNICATION:PCP aware of y.o. Male admitted for left shoulder arthroplasty. Lives with ,anticipate no needs on DC Weds or Th TCC/SW will followSIGNATURE: Queenie Edgar RN PATIENT NAME: Zayda De La VegaDATE: June 21, 2017 : 3:49 PM PAGER/CONTACT #: [phone] [facility] CONSULTon 06-21-2017 CONSULT HNO ID: [id number] thor: Nia Lerner CNPSermihire: General Internal MedicineAuthor Type: Nurse PractitionerType: ConsultsFiled: 06/21/2017 4:48 PMNote Text:HISTORY AND PHYSICAL EXAMINATIONPATIENT NAME: Zayda De La VegaMRN: [id number] DATE: 06/21/2017SERVICE TIME: 1550PRIMARY CARE PHYSICIAN: BARON Soto FOR CONSULT: Perioperative managementCHIEF COMPLAINT: S/p Left Total Shoulder ArthroplastyHPI: This is a 66 year old male with PM history of MARCELINA on CPAP, morbidobesity, HTN, HLD, anxiety and anemia on iron supplement who presentswith complaints of worsening left hip pain. He has a 2-3 yr h/o leftshoulder pain, no previous sx or injury. Some relief with tylenol,meloxicam, Pain has been constant. He underwentL TSA by Je on 06/21/2017. We are consulted on medical management .Patient seen and examined at bedside. He is compliant with hismedications. He does not follow any diet and tries to exercise. He hasbrought his CPAP machine with him. Pain is Increasing. Explained paincontrol. He denies chest pain, SOB, palpitations, nausea or vomiting.PAST MEDICAL HISTORY:PAST MEDICAL HISTORYDiagnosis Date- Anxiety- Benign neoplasm of colon- Depressive disorder, not elsewhere classified- Diverticulosis of colon (without mention of hemorrhage)- HLD (hyperlipidemia) 06/13/2017- Internal hemorrhoids without mention of complication- MARCELINA (obstructive sleep apnea) 1997- Peripheral neuropathy (HCC)- Shoulder arthritisPAST SURGICAL HISTORY:PAST SURGICAL HISTORYProcedure Laterality Date- ARTHROPLASTY TOTAL SHOULDER 04/03/2013 Right shoulder- COLONOS W/REM POLYP SNARE 06/26/08- COLONOSCOP W/ OR W/O BRSH SPEC 08/11/1992 Colonoscopy- PAST SURGICAL HISTORY OF 1995 L5-S1 spinal fusion with pins, rods, and bolts- PAST SURGICAL HISTORY OF 03/2011 Right hip revision- PAST SURGICAL HISTORY OF 1970 right shoulder surgery- TOTAL HIP REPLACEMENT 1992 Hip replacement, total RIGHTFAMILY HISTORY:FAMILY HISTORYProblem Relation Age of Onset- Cancer Father KIDNEY- Brain Tumor [OTHER] Father- Cancer Sister thyroid- Diabetes BrotherSOCIAL HISTORY:Social HistorySubstance Use Topics- Smoking status: Former Smoker Packs/day: 1.00 Years: 10.00 Types: Cigarettes Quit date: 10/27/1983- Smokeless tobacco: Never Used- Alcohol use Yes Comment: very rarelyMEDICATIONS:Prior to Admission MedicationsPrescriptions Prior to Admission:mupirocin (BACTROBAN) 2 % ointment Apply 1/2 inch of ointment with a Qtipto both nostrils in the morning AND evening for 5 consecutive days beforesurgery Disp: 1 Tube Rfl: 0 06/18/2017aspirin, enteric coated (ASPIRIN, ENTERIC COATED) 81 mg EC tablet Take 81mg by mouth once daily. Disp: Rfl: Past Week at Unknown timeBIPAP Disp: Rfl: 06/20/2017 at Unknown timeSALMON OIL/OMEGA-3 FATTY ACIDS (SALMON OIL-1000 ORAL) Take by mouth oncedaily. Disp: Rfl: Past Week at Unknown timeIRON, FERROUS SULFATE, ORAL Take by mouth once daily. Disp: Rfl: PastWeek at Unknown timeCOLLAGEN MISC once daily. Disp: Rfl: Past Week at Unknown timeASCORBIC ACID (VITAMIN C ORAL) Take by mouth once daily. Disp: Rfl:Past Week at Unknown timePOTASSIUM ORAL Take by mouth once daily. Disp: Rfl: Past Week atUnknown timemeloxicam (MOBIC) 7.5 mg tablet Take 1-2 tablets by mouth once daily.Disp: 60 tablet Rfl: 2 Past Week at Unknown timemetoprolol succinate ER (TOPROL XL) 25 mg 24 hr tablet Take 1 tablet bymouth once daily. Disp: 90 tablet Rfl: 3 06/21/2017 at 0500perphenazine 2 mg tablet Take 2 mg by mouth twice daily. Disp: Rfl:06/20/2017 at 2100buPROPion (WELLBUTRIN) 75 mg tablet Take 150 mg by mouth three timesdaily. Disp: Rfl: 06/21/2017 at Unknown timefluticasone 50 mcg/actuation nasal spray Use 1 [place] in each nostril asneeded. Disp: Rfl: Past Week at Unknown timeloratadine (CLARITIN) 10 mg ORAL tablet Take 10 mg by mouth once daily.Disp: Rfl: 06/21/2017 at 0500timeLORazepam 1 mg ORAL tablet Take 1 mg by mouth every 6 hours as needed.Disp: Rfl: 06/21/2017 at 0500In-Patient MedicationsCurrprovidence va medical center medications:LORazepam 1 mg tab(s) (ATIVAN) 1 mg ORAL q 6 H PRNloratadine 10 mg tab(s) (CLARITIN) 10 mg ORAL DAILYperphenazine 2 mg tab(s) 2 mg ORAL BIDmetoprolol succinate ER 25 mg tab(s) (TOPROL XL) 25 mg ORAL DAILYbuPROPion 150 mg tab(s) (WELLBUTRIN) 150 mg ORAL TID[START ON 06/22/2017] aspirin, enteric coated 81 mg tab(s) (ASPIRIN,ENTERIC COATED) 81 mg ORAL DAILYvancomycin 1.5 g in D5W 250 mL 1.5 g INTRAVENOUS ONCEclindamycin 600 mg in D5W 50 mL (CLEOCIN) 600 mg INTRAVENOUS q 8 HRlactated ringers infusion 50 mL/hr INTRAVENOUS CONTINUOUSoxyCODONE-acetaminop hen 5-325 mg 1-2 tablet (PERCOCET) 1-2 tablet ORAL q 4H PRNmetoclopramide HCl 10 mg injection (REGLAN) 10 mg INTRAVENOUS q 6 H PRN[START ON 06/22/2017] polyethylene glycol 3350 17 g packet (MIRALAX,GLYCOLAX) 17 g ORAL DAILY PRN[START ON 06/23/2017] bisacodyl EC 10 mg tab(s) (DULCOLAX) 10 mg ORAL DAILYaluminum-magnesium hydroxide-simethicone 200-200-20 mg/5 mL 30 mL(MAALOX,MYLANTA,MAG-AL PLUS) 30 mL ORAL q 6 H PRNHYDROmorphone 0.4 mg injection (DILAUDID) 0.4 mg INTRAVENOUS q 4 H PRNfentaNYL 50 mcg/mL 100 mcg injection (SUBLIMAZE) 100 mcg INTRAVENOUSPre-Op Once[START ON 06/22/2017] ropivacaine 0.2 % 1,000 mg in NaCl infusion (ON-Q)(NAROPIN) 500 mL PERIPHERAL NERVE CATHETER CONTINUOUSbenzocaine-menthol 1 Lozenge lozenge (CEPACOL) 1 Lozenge ORAL q 3 H PRNALLERGIES:ALLERGIESAllergen Reactions- Aspartame Swelling Pt gets burning sensation under skin- Betadine [Povidone-* Rash Blister- Niacin Other: See Comments Niacin-Dermid Burning pain all over- Penicillins Rash- Seasonal Allergies Other: See Comments GRASS POLLEN-positive skin test 09-05-13- Sudafed [Pseudoephe* Other: See Comments Difficulty swallowing, swelling of tongue AND lips- Tamiflu [Oseltamivi* Shortness of Breath SOB, arm painCOMPLETE REVIEW OF SYSTEMS:All other reviewed and negative other than HPI.PHYSICAL EXAM: 19/814907 400 432BP: 120/60 124/65Pulse: 74 77 87Resp: 18 18 18Temp: 37.4 ?C (99.3 ?F) 36.9 ?C (98.4 ?F)TempSrc: OralSpO2: 95% 95% 93%Weight:Height: 172.7 cm (5' 8)GEN: well appearing gentleman, in no acute distress.SKIN: skin color, texture, turgor normal. No rash.HEENT: no tenderness. PERRL. EOMI. Buccal mucosa moist.NECK: Supple, no adenopathy, no JVD.LUNGS: Clear ANTOLIN. No wheezes.CV: RRR. Normal s1/s2. No murmurs appreciated.ABD: Soft, non-tender, non-distended. Bowel sounds present x 4.EXT: surgical dressing to left shoulder intact, dry and intact . No edema.Peripheral pulses present. Calves soft and non-tender bilaterally. Slingand Q-ball in place. Fingers warm and mobile.NEURO: AANDOx3. Grossly intact. No focal deficits.DATA:CBC, Coags, BMP, Mg, PhosASSESSMENT AND PLAN:Primary osteoarthritis of left shoulder [M19.019], Status post totalreplacement of left shoulder [Z96.619]: with Dr Wooten on 06/21/2017.Continue with PT/OT. Encourage strict IS.Acute postoperative pain of left shoulder[G89.18]:. Pain control goalswere discussed. Continue with current medications. Control pain with medsordered and Q-ball adjustments.Constipation [K59.00]: continue with bowel regimen while taking painmedications.DVT ppx: ASA 81 mg bid . SCDs. Ambulation with PT/OT.HLD (hyperlipidemia) [E78.5]: diet controlledAnxiety [F41.9]: continue wellbutrin, perphenazineEssential hypertension, benign [I10]: BP is 124/65 , continue metoprolol,MARCELINA (obstructive sleep apnea) [G47.33]: use CPAP machineHe is voiding freelyCBC and BMP daily.Case management for dc planning.Discussed common complications and risks with the patient including fever,blood clots, constipation, pain, nausea/vomiting and infection. Encourageduse of incentive spirometer.Above was discussed and plan of care was developed with Dr. Chavis.Please see additional comments and addendum.Thank you for allowing us to participate in the care of your patient.Nia Lerner, [facility] Hospitalpt20163:38 PM [facility] NURSING PROGon 06-21-2017 NURSING PROG HNO ID: [id number] thor: Naye AllanRn) Aruna Gilesice: NursingAuthor Type: Registered NurseType: Nursing Progress NoteFiled: 06/21/2017 8:36 PMNote Text: Nursing Progress NotePatient Name: Zayda De La VegaN: [id number] Location: [facility] [place] Daily Note: pt resting in bed. AANDOx3. Assessment complete see NPR.Dressing on left shoulder dry and intact, immobilizer on left arm. Radialpulses palpable, brisk cap refill, reports tingling, fingers are moveableand warm. Reports pain of 5/10 under left arm, medicated. Denies chestpain, SOB, calf tenderness. Pulse ox 93% on 3L NC. Q-ball open. Educatedon use of IS. Assisted up to the restroom. Margarito seq on bilaterally. Plan ofcare discussed. Call light within reach no needs at this time.This note was completed by: Naye Giles RN [facility] NURSING PROG HNO ID: [id number] thor: Regina AllanRn) Aruna Dawsonice: (none)Author Type: Registered NurseType: Nursing Progress NoteFiled: 06/21/2017 6:51 PMNote Text: Nursing Progress NotePatient Name: Zayda De La VegaN: [id number] Location: [place]/ [place]-* Daily Note: Pt admitted to floor and oriented to room. Alert andoriented. Denied chest pain and sob. Denied nausea. Offer fluids.Denied shoulder pain at this time. Dressing dry and intact. Immobilizeron. On q ball intact and clamp. Ice to shoulder. Pt unable to movefingers at this time. Brisk cap refill with radial pulse. Educate pt onletting nursing know when experiencing pain. Stated understanding.Educated on IS. Pt c/o anxiety and requested ativan. at bedside.Educate pt and family about taking home meds back to care. Statedunderstanding. Comfort needs met. Will continue to monitor.1533: Medicated for c/o pain and sore throat. Assisted up to bathroomand back to bed.1650: Rounds made. Stated pain level is better. Ice to shoulder.Comfort needs met. setting up bipap for HS.1730: Pt up eating supper. at bedside. Comfort needs met.1810: Pt concern about ativan order. Stated he and psychiatrist have aschedule for 2pm 6pm and 8pm d/t recent panic attacks. Notified Medicalabout pt's concerns.1830: Rounds made. Pt in room resting with eyes close.1850: Medicated for c/o sore throat and difficulty swallowing withlozenges.This note was completed by: Regina Dawson RN [facility] NURSING PROG HNO ID: [id number] thor: Braydon (Rn) JENNIFER Garridoervice: NursingAuthor Type: Registered NurseType: Nursing Progress NoteFiled: 06/21/2017 2:29 PMNote Text:Arrives to pacu 7 responsive to physical stimuli, opens eyes oral airwayremoved. Placed on monitors and wall oxygen. Temp 37.6 diaphoretic I'mhot covers except sheet removed. Denies pain. Unable to move fingers. Onleft . Brisk capillary refill. 1315 Asking repetative questions regardingprocedure. Can I play the piano now? patient asked if he could playpreoperatively No Is Madonna here? ( ) Did it go well? Can Iplay tennis? Forgetful to time and place. Denies pain and nausea. 1330 Xray taken. Ice bag behind head per request. 1345 Comp;laining of sorethroat, ice water taken tolerated well. SFM decreased to 8 literssaturation 94%. Complaining this mask is hot Rationale explainedregarding saturation coughing and deep breathing/ block limiting left lungexpansion repositioned to promote better exchange. Saturation probe movedto left ear saturation 96 % on 4 liters of oxygen. Taking po ice waterwell complaining of sore throat while awake. 1416 Sleeping with lightsnore. Saturation 94% on 43 liters per nasal canula. Report called [facility] fifth floor . Family waiting room updated on patient Progress.1424To RNF via bed with oxygen. [facility] NURSING PROG HNO ID: [id number] thor: Ashley (Rn) JENNIFER Johnsonervice: NursingAuthor Type: Registered NurseType: Nursing Progress NoteFiled: 06/21/2017 8:34 AMNote Text:Admitted Patient to Surgery Center for pre operative preparation. Patientinstructed about perioperative process and expectations. Surgical planverified with consent. Explanation provided about marking surgical site.Patient given an opportunity for on going questions and answers. Patientorientated to room, call light/television, surroundings, and trackingsystem for family to follow surgical process. Instructed about Call...Don't Fall initiatives. Instructed patient signs of DVT and Prophylaxismeasures. Instructed on coughing and deep breathing. Post operativeinstructions started. Ana Johnson R.N. [facility] OPERATIVE NOon 06-21-2017 OPERATIVE NO HNO ID: [id number] thor: Jose Angel Garcia: Orthopaedic SurgeryAuthor Type: PhysicianType: Operative ReportFiled: 06/21/2017 3:41 PMNote Text:[place] [id number] [place]OPERATIVE REPORTNAME: Zayda Neto De La Vega [facility] #: [id number]: 06/21/2017 (10:53am-12:45pm) AGE: 66SURGEON 1: Jose Angel Wooten M.D.PHONOGRAPH NEEDLE TIP MAKER: 1. Víctor Nobles D.O. 2. Capo Middleton M.D. (Noqualified resident was available to assist with the case).OPERATION: Left total shoulder arthroplasty, biceps tenodesis.ANESTHESIA: General anesthesia with regional interscalene nerve block forpostoperative pain control.PREOPERATIVE DIAGNOSIS: Left shoulder primary glenohumeral osteoarthritis.POSTOPERATIVE DIAGNOSIS: Left shoulder primary glenohumeralosteoarthritis, biceps tendinopathy.OPERATIVE INDICATIONS: The patient is a 66 year oldrpd-xhue-bht right-handdominant male who has a history of chronic left shoulder pain from adiagnosis of glenohumeral arthritis. He has developed progressivelyworsening arthritic symptoms, including pain and loss of motion. Due tothe failure of nonoperative management, discussion was had about surgicalinterventions. He was deemed a candidate for left total shoulderarthroplasty. The risks and benefits of the surgery, as well as theexpected postoperative course were discussed with the patient at length.The patient understood the risks and benefits, and wished to proceed withthe operation.OPERATIVE FINDINGS: There were arthritic changes of the glenohumeral jointon both the humeral and glenoid side, with extensive osteophyte formationalong the humeral head. The subscapularis and superior and posteriorrotator cuff were found to be intact intraoperatively. Preoperative rangeof motion under anesthesia showed passive external rotation at the side ofapproximately 10-20 degrees, and passive forward flexion of [id number] degrees. At the end of the case, passive external rotation at the sidewas approximately 60 degrees, and passive forward flexion wasapproximately 160-170 degrees.OPERATIVE PROCEDURE: On the day of surgery, the patient was seen in thepreoperative area. The planned surgical procedure and the correct surgicalsite were again reviewed with the patient and the left upper extremity wasmarked. Prior to being taken back to the operating room, the patient didreceive an interscalene nerve block in his left upper extremity forpostoperative pain control. Preoperative antibiotics were given. Thepatient was then taken back to the operating room and intubated withoutcomplications. The patient was placed in the beach chair position, and theleft upper extremity was prepped and draped in the usual sterile fashion.A standard 10-15 cm deltopectoral incision was made along the anterioraspect of the left shoulder. The incision was carried sharply down to thelevel of the deep fascia. The cephalic vein and deltoid were then takenlaterally while the pectoralis major was taken medially, and dissectionwas taken through the deltopectoral interval. The upper 1-1.5 cm of thepectoralis major tendon was released from its attachment site on thehumerus for greater exposure. The subdeltoid and subacromial spaces weredeveloped deeply. The interval between the conjoined and subscapularistendons was next developed up to the coracoacromial ligament, but this wasnot taken. Digital palpation was used to verify the integrity of theaxillary nerve, which was protected throughout the procedure. The conjointtendon was then retracted with the self-retaining retractor medially toexpose the subscapularis tendon deep to this. The anterior humeralcircumflex vessels were clamped and coagulated. The biceps sheath androtator interval were then opened up. The long head of the biceps tendonshowed advanced degenerative changes proximally consistent withtendinopathy. Therefore, the tendon was tenodesed to the upper border ofthe pectoralis major tendon insertion. The degenerative, more proximalremaining portion of the tendon was then excised up to its origin at thesuperior aspect of the glenoid. The bicipital groove was then furthercleaned of soft tissue to better expose the lesser tuberosity andsubscapularis insertion. A lesser tuberosity osteotomy was then performedusing a curved, 1.5-inch osteotome. The subscapularis was then isolatedand freed from the underlying capsule. Following medial retraction of thefree lesser tuberosity osteotomy and subscapularis tendon, the capsule wasthen released, starting proximally at the rotator interval and movingdistally down to the 6 o'clock position along the anatomic neck of thehumeral head. The humeral head was then delivered into the wound withsimultaneous adduction, extension, and external rotation.With the humeral head dislocated and exposed, the humeral osteophytes wereremoved along the anatomic neck. We then marked the anatomic neck with anextra-articular cutting guide with a fixed neck-shaft angle of 135degrees. The humeral head cut was made along this marked site goinganteriorly to posteriorly, making sure to exit posteriorly just above thereflection of the rotator cuff. It was noted that the posterior andsuperior rotator cuff were completely intact. The humeral cut was made inapproximately 20-30 degrees of retroversion, leaving approximately 2-3 mmof bone above the superior and posterior rotator cuff reflection. Weestimated the humeral head size to be a 46 or 50 mm. We did not finish thehumerus at this point.We then brought the shoulder into an abducted, extended, and externallyrotated position for exposure of the glenoid. The humerus was retractedposteriorly with a Fukuda retractor. The anterior capsule which hadpreviously been dissected out was then isolated using a Madhuri and smalland large Todd elevators. This anterior capsule was then excised down tothe rim of the glenoid. We released the remaining portion of the capsuleto the base of the coracoid superiorly. The remaining biceps anchor, andthe entire anterior, superior, posterior, and inferior labrum was excised.We did release the remaining inferior capsule, but did not released theposterior capsule with the labral excision. Following labral excision, theglenoid rim was noted to be completely exposed. The patient was noted tohave evidence of glenoid wear, with mild posterior wear but nobiconcavity. We then placed a glenoid sizer disk which showed the glenoidto be a size 46 mm. Placement of the centering guide pin was thenperformed using the size 46 mm guide. We then brought in the 46 mmcannulated reamer over the centering guide pin and ream the glenoid justto the start of bleeding bone. The peripheral drill guide was placed overthe guide pin and we drilled the three peripheral holes for the glenoid.The center hole was then drilled. The guide pin was then removed, and wenoted that none of the peg holes violated the glenoid vault medially. Karrie placed a trial 46 mm glenoid and noted concentric seating of theglenoid trial along the reamed surface with good fit of the size 46 mm tothe glenoid. The trial was then removed, and we pulse irrigated theglenoid and dried the peg holes. We then placed pressurized cement withinthe central peg hole. The final 46 mm anchor peg glenoid (DJO AltiVateAnatomic) was then impacted into the glenoid without difficulty. Again,the final glenoid implant showed good concentric fit along the entireglenoid surface. Pressure was left on the glenoid component until thecement had hardened. Once the cement had hardened, we redelivered theproximal humerus into the wound with adduction, extension, and externalrotation.The humeral canal was reamed from the cut surface of the humerus. A 6-mmentry reamer was then placed into the humeral intramedullary canal. Thecanal was reamed up to a size 12 mm reamer and then broached. The trialsize #12 [address] was left in place and we then placed the cut surfacereaming guide and reamed down any uneven surfaces flush with our broach.This showed a good cut surface for a 135-degree implant. Therefore, karrie placed trial 46 x 18 mm and 50 x 18 mm heads, both centered andeccentric. The trial 50 x 18 mm centered head showed the best headcoverage. We then reduced this trial implant into the glenoid, and thisshowed excellent soft tissue tensioning with excellent subscapularislength. The humerus was re-dislocated and the trial implant was removed.The final humeral implant was, therefore, a 12 stem, standard 135-degreeneck, with a 50 x 18 mm centered head (DJO Altivate Anatomic). We placedone, #2 Fiberwire suture around the neck of the prosthesis prior toimpaction. Three drill holes were then made along the bicipital groove andtwo #2 Fiberwire sutures were passed through the holes to create two loopsout of the holes, with the loop of each suture left in the humeral canalto place the humeral stem through them. The final humeral prosthesis wasthen impacted into the humerus, taking care to keep each suture looparound the stem, and gave an excellent press fit. With the final humeralprosthesis in place, the shoulder was reduced, and the wound was copiouslyirrigated. The subscapularis and lesser tuberosity osteotomy were thenrepaired. The #2 Fiberwire suture around the neck of the prosthesis wasthen brought through the subscapularis tendon as a horizontal mattress andtied down to secure the osteotomy piece medially. A single rotatorinterval stitch was then passed in afoftx-gm-atdwt fashion with a #2Ticron suture and tied down to close the lateral rotator interval and setthe osteotomy superiorly. The two #2 Fiberwire sutures coming out of thebicipital groove were then sequentially passed in a cjuzkw-pi-cmhikgjtsmuo medial to the horizontal mattress and sequential tied down tofinish securing the osteotomy to the osteotomy bed as a tension-bandconstruct. This showed an excellent repair of the lesser tuberosityosteotomy and subscapularis back down to the original osteotomy bed site.Following this, all retractors were removed, and digital palpation wasagain used to confirm the integrity of the axillary nerve. The wound wasagain copiously irrigated. A total of 5 L of pulse irrigation was usedthroughout the case. The deltopectoral interval was loosely closed withinterrupted, #1 Vicryl stitches. The subcutaneous layer was then closedwith interrupted, 2-0 Vicryl stitches. A running subcuticular 3-0 Prolenesuture was then used to close the skin. Steri-Strips were placed over theincision site, and the wound was sterilely dressed with Adaptic, 5u9tlzyh, ABD dressing, and Foam tape. The shoulder was then placed in anabduction sling. The patient was awoken without complications andextubated. He was transferred to the PACU in stable condition.Opening and closing of the incision was performed by Víctor Nobles D.O.,and Capo Middleton M.D., with the primary surgeon (Jose Angel Wooten M.D.) readily available. The remainder of the procedure, including allcritical elements, was completed by the primary surgeon (Jose Angel Wooten M.D.) with assistance from Víctor Nobles D.O., and Capo Middleton M.D.ESTIMATED BLOOD LOSS: 200 ccDRAINS: noneSPECIMENS: noneCOMPLICATIONS: none apparentEric Cabrera Wooten M.D. [facility] XR SHOULDER 2V AP/TRUE AP LT on 06-21-2017 XR SHOULDER 2V AP/TRUE AP LT * * *Final Report* * *DATE OF EXAM: Jun 21 2017 1:15PM EUX 5254 - XR SHOULDER 2V AP/TRUE AP LT / REASON: Status post total shoulder arthroplasty * * * * Physician Interpretation * * * *RESULT: EXAM: XR SHOULDER 2V AP/TRUE AP LTHISTORY: Status post total shoulder arthroplastyVIEWS: Portable AP 1308 hrs.IMPRESSION: Completed left shoulder arthroplasty with noncemented humeral prosthesis in anatomical alignment. Post surgical soft tissue emphysema.IMPRESSION: Postoperative left shoulder arthroplasty.Transcribed Using Voice RecognitionTranscribe Date/Time: Jun 21 2017 1:42PDictated by: Jeb CASTRO MDThis examination was interpreted and the report reviewed and electronically signed by: Jeb CASTRO MD on Jun 21 2017 1:43PM [id number] [facility] NURSING PROGon 06-16-2017 NURSING PROG HNO ID: [id number] thor: Kamila (Rn) Zainab, RNService: (none)Author Type: Registered NurseType: Nursing Progress NoteFiled: 06/20/2017 8:21 AMNote Text:MARCELINA-uses BiPaP/ BMI-38.02PACC visit completed on 06/13/17; Reviewed recent tests: labs: CBC, BMP,T AND S, STAAMP-(+ staph, negative for MRSA), and EKG- (abnormal-NSR, withfirst degree block; complete right BBB, and left anterior fascicularblock; Bifascicular block done 06/13/17 results in EPIC.Anesthesia consult: E-mail sent 06/16/17- related to abnormal EKG-replyfrom Dr. Monsalve, Please have cardiology evaluation. Dr. Chung; E-mail sentto Dr. Wooten and informed of anesthesia recommendations.06/16/17- 13:35 called patient and spoke with him and his and informedof abnormal EKG and need for cardiac consult, instructed to call PCP andschedule an appt., and then to call surgeon to update. Verbalizedunderstanding.Cecelia contreras consult: scheduled appt., on 06/17/[address] Purdy-resultspending.06/17/17- 12:16- called patient and informed of abnormal nasal swabresults. Medication was e-script to Abdulkadir, AND was instructed to useMupirocin ointment as ordered to start 06/17/17 through 06/21/17 for 5 daysprior to surgery. Verbalized understanding, but on the road and will notreturn home until Tuesday- will start then.Chart check complete pending cardiac clearance. Monica Sutton RNSeptember 2016 8:15 AMDr. Purdy's notes 06/17/17 reviewed see below. Chart check complete.Kamlia Lamb RN Normal [facility] Type and SCR (30D)on 017 ABO/RH(D) Positive Normal [facility] Antibody Screen Negative Normal [facility] SARS-CoV-2 (COVID-19) Ag IA. rapid Ql (Resp) SARS-CoV-2 Antigen (Rapid) SARS-CoV-2 (COVID 19) [facility] Work Phone: Vital Signs Date Time Vital Sign Value Performing Clinician Facility 04-02-2025 14:57-0400 Body height 172.7 cm Edinson Thakur DO Work Phone: [facility] 04-02-2025 14:57-0400 Body mass index (BMI) [Ratio] 40.75 kg/m2 Edinson Thakur DO Work Phone: [facility] 04-02-2025 14:57-0400 Body weight 121.56 kg Edinson Thakur DO Work Phone: [facility] 03-05-2025 14:32-0400 Body height 172.7 cm Edinson Zarate MD Work Phone: [facility] 03-05-2025 14:32-0400 Body mass index (BMI) [Ratio] 39.38 kg/m2 Edinson Zarate MD Work Phone: [facility] 03-05-2025 14:32-0400 Body weight 117.48 kg Edinson Zarate MD Work Phone: [facility] 03-05-2025 14:32-0400 Diastolic blood pressure 73 mm[Hg] Edinson Zarate MD Work Phone: [facility] 03-05-2025 14:32-0400 Heart rate 56 /min Edinson Zarate MD Work Phone: [facility] 03-05-2025 14:32-0400 SaO2% (BldA) [Mass fraction] 94 % Edinson Zarate MD Work Phone: [facility] 03-05-2025 14:32-0400 Systolic blood pressure 123 mm[Hg] Edinson Zarate MD Work Phone: [facility] 10-04-2024 11:12-0500 Body height 172.7 cm Pat Seo MD Work Phone: [facility] 10-04-2024 11:12-0500 Body mass index (BMI) [Ratio] 42.88 kg/m2 Pat Seo MD Work Phone: [facility] 10-04-2024 11:12-0500 Body temperature 97.9 [degF] Pat Seo MD Work Phone: [facility] 10-04-2024 11:12-0500 Body weight 127.91 kg Pat Seo MD Work Phone: [facility] 10-04-2024 11:12-0500 Diastolic blood pressure 65 mm[Hg] Pat Seo MD Work Phone: [facility] 10-04-2024 11:12-0500 Heart rate 55 /min Pat Seo MD Work Phone: [facility] 10-04-2024 11:12-0500 SaO2% (BldA) [Mass fraction] 95 % Pat Seo MD Work Phone: [facility] 10-04-2024 11:12-0500 Systolic blood pressure 136 mm[Hg] Pat Seo MD Work Phone: [facility] 08-20-2024 14:13-0500 Diastolic blood pressure 76 mm[Hg] Katelyn Fernandez PA-C Work Phone: [facility] 08-20-2024 14:13-0500 Heart rate 58 /min Katelyn Fernandez PA-C Work Phone: [facility] 08-20-2024 14:13-0500 Systolic blood pressure 146 mm[Hg] Katelyn Fernandez PA-C Work Phone: [facility] 08-08-2024 09:12-0500 Body mass index (BMI) [Ratio] 43.96 kg/m2 Pat Seo MD Work Phone: [facility] 08-08-2024 09:12-0500 Body temperature 97.3 [degF] Pat Seo MD Work Phone: [facility] 08-08-2024 09:12-0500 Body weight 127.33 kg Pat Seo MD Work Phone: [facility] 08-08-2024 09:12-0500 Diastolic blood pressure 68 mm[Hg] Pat Seo MD Work Phone: [facility] 08-08-2024 09:12-0500 Heart rate 55 /min Pat Seo MD Work Phone: [facility] 08-08-2024 09:12-0500 Systolic blood pressure 136 mm[Hg] Pat Seo MD Work Phone: [facility] 08-07-2024 14:49-0500 Body height 170.2 cm Edinson Zarate MD Work Phone: [facility] 08-07-2024 14:49-0500 Body mass index (BMI) [Ratio] 43.85 kg/m2 Edinson Zarate MD Work Phone: [facility] 08-07-2024 14:49-0500 Body weight 127 kg Edinson Zarate MD Work Phone: [facility] 08-07-2024 14:49-0500 Diastolic blood pressure 76 mm[Hg] Edinson Zarate MD Work Phone: [facility] 08-07-2024 14:49-0500 Heart rate 60 /min Edinson Zarate MD Work Phone: [facility] 08-07-2024 14:49-0500 SaO2% (BldA) [Mass fraction] 95 % Edinson Zarate MD Work Phone: [facility] 08-07-2024 14:49-0500 Systolic blood pressure 134 mm[Hg] Edinson Zarate MD Work Phone: [facility] 08-03-2024 13:38-0400 Body height 170.2 cm Bianca Denise DO Work Phone: [facility] 08-03-2024 13:38-0400 Body mass index (BMI) [Ratio] 43.76 kg/m2 Bianca Denise DO Work Phone: [facility] 08-03-2024 13:38-0400 Body temperature 97 [degF] Bianca Denise DO Work Phone: [facility] 08-03-2024 13:38-0400 Body weight 126.73 kg Bianca Denise DO Work Phone: [facility] 08-03-2024 13:38-0400 Diastolic blood pressure 78 mm[Hg] Bianca Denise DO Work Phone: [facility] 08-03-2024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 on above: Refill Request Start: 11-06-2024 End: 11-06-2024 Refill Edinson Zarate MD Work Phone: [facility] Comment on above: Refill Request Start: 10-29-2024 End: 11-01-2024 ambulatory Pat Seo MD Work Phone: Rheumatology Comment on above: Results Start: 10-29-2024 End: 11-01-2024 E-mail encounter from caregiver Pat Seo MD Work Phone: Rheumatology Start: 10-26-2024 End: 10-26-2024 ambulatory EDINSON ZARATE Facility:[facility] Start: 10-16-2024 End: 10-16-2024 ambulatory Mare Gomez MA [facility] Start: 10-16-2024 End: 10-16-2024 Patient encounter procedure Mare Gomez MA [facility] Comment on above: [facility] Start: 10-14-2024 End: 10-18-2024 ambulatory Pat Seo MD Work Phone: Rheumatology Comment on above: Results Start: 10-14-2024 End: 10-18-2024 E-mail encounter from caregiver Pat Seo MD Work Phone: Rheumatology Start: 10-13-2024 End: 10-15-2024 ambulatory Adilia Auguste APRN.CNP Work Phone: Pulmonary Medicine Comment on above: Guaifenesin Start: 10-07-2024 End: 10-07-2024 Telephone encounter Pat Seo MD Work Phone: Rheumatology Comment on above: Patient Conference Start: 10-04-2024 End: 10-04-2024 E-mail encounter from caregiver Adiliahiro Auguste APRN.DISTRICT RESOURCE OFFICER Work Phone: Pulmonary Medicine Start: 10-04-2024 End: 10-04-2024 ambulatory EDINSON ZARATE Facility: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); History of lumbar fusion Start: 09-10-2024 End: 09-11-2024 Telephone encounter Edinson Zarate MD Work Phone: [facility] Comment on above: Medication Problem ( 3 Rx's sent to wrong pharmacy) Start: 09-08-2024 End: 09-24-2024 Refill Adilia Auguste APRN.DISTRICT RESOURCE OFFICER Work Phone: Pulmonary Medicine Comment on above: Refill Request Start: 08-27-2024 End: 08-29-2024 Refill Layo Chan APRN.DISTRICT RESOURCE OFFICER Work Phone: [facility] Comment on above: Refill Request Missed Prescription Start: 08-23-2024 End: 08-24-2024 ambulatory Harman Gilliam PT Work Phone: [facility] Comment on above: 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); History of lumbar fusion Mix Up on [place] Start: 08-22-2024 End: 08-27-2024 Refill Edinson Zarate MD Work Phone: [facility] Comment on above: Refill Request Test of Prednisone E ffectiveness Start: 08-21-2024 End: 08-21-2024 ambulatory Remberto Cohen [facility] Start: 08-20-2024 End: 08-20-2024 Patient encounter procedure Katelyn Fernandez PA-C Work Phone: Integrative Medicine Comment on above: 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); Chronic pain syndrome; Polyneuropathy, unspecified; Systemic lupus erythematosus, unspecified SLE type, unspecified organ involvement status (HCC); Severe obesity (BMI >= 40) (HCC) Start: 08-20-2024 End: 08-20-2024 ambulatory KATELYN FERNANDEZ Facility:[facility] Start: 08-15-2024 End: 08-15-2024 Telephone encounter Edinson Zarate MD Work Phone: [facility] Comment on above: Received Outside [facility] ([facility]) Start: 08-14-2024 End: 08-14-2024 Refill Edinson Zarate MD Work Phone: [facility] Comment on above: Opened In Error Start: 08-09-2024 End: 08-09-2024 Patient encounter procedure Yoni Peng MD Work Phone: Orthopaedic Surgery [facility] Comment on above: Bilateral hand numbn ess (Primary Dx) Start: 08-08-2024 End: 08-08-2024 Patient encounter procedure Pat Seo MD Work Phone: [facility] Comment on above: SLE (systemic lupus erythematosus related syndrome) (HCC) (Primary Dx); Small fiber neuropathy; Gammopathy; Long-term use of Plaquenil Start: 08-07-2024 End: 08-07-2024 Office outpatient visit 25 minutes Edinson Zarate MD Work Phone: [facility] Comment on above: Amyloidosis, unspeci fied type (HCC) (Primary Dx); Systemic lupus erythematosus with other organ involvement, unspecified SLE type (HCC); Glenohumeral arthritis; Primary osteoarthritis involving multiple joints; Systemic lupus erythematosus, unspecified SLE type, unspecified organ involvement status (HCC); 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); Morbid obesity with body mass index (BMI) of 40.0 to 44.9 in adult (HCC); Medical marijuana use Start: 08-05-2024 End: 08-06-2024 ambulatory Pat Seo MD Work Phone: Rheumatology Start: 08-05-2024 End: 08-06-2024 Patient encounter procedure Pat Seo MD Work Phone: Rheumatology Comment on above: Our Tuesday Latrell chung Appointment Start: 08-03-2024 End: 08-03-2024 Subsequent hospital visit by physician [facility] Work Phone: Radiology Comment on above: Chronic bilateral lo w back pain with bilateral sciatica [M54.42, M54.41, G89.29] Start: 08-03-2024 End: 08-03-2024 ambulatory Lakia Wilkerson RT(R) Radiology Comment on above: Radio Gen RMP Start: 08-03-2024 End: 08-03-2024 Patient encounter procedure Lakia Wilkerson RT(R) Radiology Comment on above: 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); History of lumbar fusion; Lumbar spondylosis Start: 07-25-2024 End: 07-25-2024 Refill Layo Chan APRN.CNP Work Phone: [facility] Comment on above: Refill Request Start: 07-22-2024 End: 07-22-2024 Telephone encounter Pat Seo MD Work Phone: Rheumatology Comment on above: Appointment Start: 07-17-2024 End: 07-17-2024 Patient encounter procedure [facility] Sale[facility] Comment on above: 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); Chronic pain syndrome; Numbness and tingling of foot Start: 07-13-2024 End: 07-17-2024 ambulatory Edinson Zarate MD Work Phone: [facility] Start: 07-13-2024 End: 07-17-2024 Patient encounter procedure Edinson Zarate MD Work Phone: [facility] Comment on above: appointment needed Start: 07-09-2024 End: 07-09-[address] Work Phone: Endocrinology Start: 07-09-2024 End: 07-09-2024 Nutrition therapy Danette Hanson RD Work Phone: Endocrinology Comment on above: Medical Nutrition Th erapy (Prediabetes and Weight Management) Start: 07-03-2024 End: 07-03-2024 Patient encounter procedure Jhon Sale[facility] Comment on above: 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); Chronic pain syndrome; Numbness and tingling of foot Start: 07-02-2024 End: 07-02-2024 Office outpatient visit 25 minutes Adilia Auguste APRN.CNP Work Phone: Pulmonary Medicine Comment on above: Shortness of breath (Primary Dx); Post-COVID chronic dyspnea; Morbid obesity with body mass index (BMI) of 40.0 to 44.9 in adult ([facility]); Obstructive sleep apnea on CPAP; GERD without esophagitis; Systemic lupus erythematosus, unspecified SLE type, unspecified organ involvement status (HCC); Smoldering myeloma Start: 06-30-2024 End: 06-30-2024 Telephone encounter Pat Seo MD Work Phone: Rheumatology Comment on above: Patient Conference; Appointment Start: 06-29-2024 End: 06-29-2024 Telephone encounter Susan Lr [facility] Work Phone: [facility] Comment on above: Results (negative TT R) Start: 06-29-2024 End: 06-29-2024 ambulatory Pulm Lab [facility] Work Phone: PULM LAB [facility] Comment on above: Spirometry Start: 06-29-2024 End: 06-29-2024 Patient encounter procedure Pulm Lab [facility] Work Phone: [facility]UL[facility] LAB [facility] Start: 06-28-2024 End: 06-28-2024 Orders Only Anurag Mejia MD Work Phone: Hematology/Oncology Comment on above: 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) Prediabetes (Primary Dx); Severe obesity (BMI >= 40) (HCC); BMI 40.0-44.9, adult (HCC); Essential hypertension, benign; Mixed hyperlipidemia; Grade I diastolic dysfunction; Obstructive sleep apnea on CPAP; GERD without esophagitis; Smoldering multiple myeloma; Other amyloidosis (HCC); Systemic lupus erythematosus, unspecified SLE type, unspecified organ involvement status (HCC); Anxiety; Moderate recurrent major depression (HCC); Medication management; Dietary counseling; Exercise counseling Start: 06-26-2024 End: 06-26-2024 Patient encounter procedure Jhon Sale[facility] Comment on above: 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); Chronic pain syndrome; Numbness and tingling of foot Start: 06-26-2024 End: 06-28-2024 ambulatory Layo Chan APRN.DISTRICT RESOURCE OFFICER Work Phone: [facility] Comment on above: [facility] Start: 06-22-2024 End: 06-25-2024 ambulatory Pat Seo MD Work Phone: Rheumatology Comment on above: My ATTR Amyloidosis Start: 06-22-2024 End: 06-22-2024 Telephone encounter Viri Gonzales DPM Work Phone: Podiatry Comment on above: Orders Start: 06-18-2024 End: 06-18-2024 Patient encounter procedure Anurag Mejia MD Work Phone: Cardiology Comment on above: Smoldering multiple myeloma (Primary Dx); Other amyloidosis (HCC) Amyloidosis, unspeci fied type (HCC) (Primary Dx); Other hyperlipidemia; Essential hypertension, benign; Obstructive sleep apnea on CPAP; Smoldering myeloma Start: 06-17-2024 End: 06-18-2024 Refill Layo Cuellar DEICER REPAIRER PNEUMATIC.DISTRICT RESOURCE OFFICER Work Phone: [facility] Comment on above: Refill Request Start: 06-09-2024 End: 06-12-2024 Refill Edinson Zarate MD Work Phone: [facility] Comment on above: Refill Request Start: 06-06-2024 End: 06-06-2024 ambulatory Susan Lr [facility] Work Phone: [facility] Comment on above: Other amyloidosis (H CC); MGUS (monoclonal gammopathy of unknown significance) Start: 06-06-2024 End: 06-06-2024 Telemedicine consultation with patient Susan Lr [facility] Work Phone: [facility] Start: 06-05-2024 End: 06-05-2024 Patient encounter procedure [facility]hon [facility] Comment on above: 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) Start: 05-30-2024 End: 05-30-2024 ambulatory Shavon Heidenmarciomegan DEICER REPAIRER PNEUMATIC.DISTRICT RESOURCE OFFICER Work Phone: Neurology Comment on above: MARCELINA (obstructive sle ep apnea) (Primary Dx); Nasal congestion Start: 05-30-2024 End: 05-30-2024 Telemedicine consultation with patient Shavon Dawkins DEICER REPAIRER PNEUMATIC.DISTRICT RESOURCE OFFICER Work Phone: Neurology Start: 05-29-2024 End: 05-29-2024 Patient encounter procedure Jhon Sale[facility] Comment on above: 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); Chronic pain syndrome; Numbness and tingling of foot; Polyneuropathy, unspecified; Systemic lupus erythematosus, unspecified SLE type, unspecified organ involvement status ([facility]) Start: 05-27-2024 End: 05-28-2024 Refill Layo Meryl DEICER REPAIRER PNEUMATIC.DISTRICT RESOURCE OFFICER Work Phone: [facility] Comment on above: Refill Request Start: 05-21-2024 End: 05-22-2024 ambulatory Edinson Zarate MD Work Phone: [facility] Comment on above: Pain Management Start: 05-19-2024 End: 05-21-2024 Refill Layo Meryl DEICER REPAIRER PNEUMATIC.DISTRICT RESOURCE OFFICER Work Phone: [facility] Comment on above: Refill Request Start: 05-09-2024 Refill Layo Verdugo PRN.CNP Work Phone: [facility] Comment on above: Refill Request Start: 05-08-2024 Refill Edinson billings MD Work Phone: [facility] Comment on above: Refill Request Start: 04-30-2024 Telephone encounter Pat Seo MD Work Phone: Rheumatology Comment on above: Results Start: 04-23-2024 End: 04-23-2024 Patient encounter procedure Katelyn Fernandez PA-C Work Phone: Integrative Medicine Comment on above: Chronic pain syndrom e (Primary Dx); Systemic lupus erythematosus, unspecified SLE type, unspecified organ involvement status (HCC); Numbness and tingling of foot; Glenohumeral arthritis; Anxiety and depression; Major depression, recurrent, chronic (HCC); Moderate recurrent major depression (HCC); Polyneuropathy, unspecified; Chronic bilateral low back pain with bilateral sciatica; GERD without esophagitis; Sleep disturbance Start: 04-12-2024 ambulatory Radha Araya [facility] [place] Start: 04-12-2024 Patient encounter procedure [facility] [place] Comment on above: Population Health Na vigation Outreach ([employer] AWV/HCC and care gaps ) Start: 04-10-2024 End: 04-10-2024 [facility] Work Phone: [facility] Medicine Comment on above: Spirometry Start: 04-10-2024 End: 04-10-2024 Patient encounter procedure Pul Fct Lab [facility] Work Phone: Pulmonary Medicine Comment on above: Shortness of breath (Primary Dx); Post-COVID chronic dyspnea; Morbid obesity with body mass index (BMI) of 40.0 to 44.9 in adult (HCC); Obstructive sleep apnea on CPAP; GERD without esophagitis; Systemic lupus erythematosus, unspecified SLE type, unspecified organ involvement status (HCC) Start: 04-08-2024 Telephone encounter Pat Seo MD Work Phone: Rheumatology Comment on above: Patient Conference Start: 04-06-2024 Telephone encounter Philippe delgadillo APRN.DISTRICT RESOURCE OFFICER Work Phone: Hematology/Oncology Comment on above: Patch Finisher - O ther Start: 04-04-2024 Telephone encounter Loraine Holcomb MD Work Phone: Pulmonary Medicine Comment on above: Orders Start: 04-03-2024 End: 04-03-2024 Patient encounter procedure Pat Seo MD Work Phone: Rheumatology Comment on above: SLE (systemic lupus erythematosus related syndrome) (HCC) (Primary Dx); Interstitial pulmonary disease (HCC); Small fiber neuropathy; Gammopathy; Long-term use of Plaquenil; Medication monitoring encounter Start: 04-03-2024 Chart abstracting Chula contreras RN Work Phone: Hematology/Oncology Start: 03-22-2024 End: 03-22-2024 Subsequent hospital visit by physician [facility] Work Phone: Molecular Imaging Comment on above: 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] Start: 03-22-2024 End: 03-22-2024 Subsequent hospital visit by physician [facility] Work Phone: Molecular Imaging Comment on above: 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] Start: 03-20-2024 Refill Layo Meryl A PRN.DISTRICT RESOURCE OFFICER Work Phone: Family Practice Start: 03-14-2024 End: 03-14-2024 Subsequent hospital visit by physician [facility] Comment on above: Abnormality of plasm a protein [R77.9] Start: 03-12-2024 End: 03-12-2024 Patient encounter procedure Ynoi Peng MD Work Phone: Orthopaedics Comment on above: Bilateral carpal nimesh mary jo syndrome (Primary Dx) Start: 03-12-2024 Telephone encounter Joanne Ashton DO Work Phone: Cat Scan Start: 03-07-2024 ambulatory Philippe Dawson APRN.DISTRICT RESOURCE OFFICER Work Phone: Hematology/Oncology Start: 03-06-2024 Telephone encounter Shavon Woodward miguel ARENAS.DISTRICT RESOURCE OFFICER Work Phone: Neurology Comment on above: PAP Rx Faxed (DME: D [facility] ) Abnormality of plasm a protein (Primary Dx); Monoclonal paraproteinemia Nm Pet Request Start: 03-06-2024 End: 03-06-2024 Subsequent hospital visit by physician Ct [facility] (I-Stat) Work Phone: Cat Scan Start: 03-05-2024 End: 03-05-2024 Refill Edinson Zarate MD Work Phone: [facility] Comment on above: Refill Request MARCELINA (obstructive sle ep apnea) (Primary Dx); Obesity, Class III, BMI 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) (HCC) Start: 03-02-2024 ambulatory Layo Meryl A PRN.DISTRICT RESOURCE OFFICER Work Phone: [facility] Comment on above: My EKG Results Start: 03-01-2024 End: 07-11-2024 Telephone encounter Joanne Hightower DO Work Phone: Radiology Comment on above: Release Of Medical R ecords Start: 02-29-2024 End: 02-29-2024 Subsequent hospital visit by physician [facility] Work Phone: Cardiology Lab Comment on above: Organ-limited amyloi dosis ([facility]) [E85.4] Start: 02-29-2024 Telephone encounter Nidhi Huynh LPN Hematology/Oncology Comment on above: Bone Marrow Biopsy N ext Day Call Start: 02-28-2024 End: 02-28-2024 ambulatory [facility] Work Phone: Hematology/Oncology Comment on above: Monoclonal paraprote inemia Start: 02-28-2024 End: 02-28-2024 Patient encounter procedure [facility] Room 1 Work Phone: Hematology/Oncology Start: 02-24-2024 End: 02-24-2024 Patient encounter procedure Jerry Gudino PA-C Work Phone: Neurology Pain Comment on above: Chronic pain syndrom e (Primary Dx); Systemic lupus erythematosus, unspecified SLE type, unspecified organ involvement status (HCC); Numbness and tingling of foot; Glenohumeral arthritis; Anxiety and depression; Amyloidosis, unspecified type (HCC) Start: 02-23-2024 Refill Edinson billings MD Work Phone: [facility] Comment on above: Refill Request Start: 02-21-2024 End: 02-21-2024 Subsequent hospital visit by physician Xr [facility] [place] [facility] Work Phone: Radiology Comment on above: Acquired clavicle de formity [M95.8] Start: 02-21-2024 Chart abstracting [facility] Work Phone: Neurology Start: 02-20-[address] RN C ardiology Comment on above: Results Start: 02-17-2024 End: 02-17-2024 ambulatory Katelyn Hamilton APRN.CNP Work Phone: Neurology Comment on above: Obstructive sleep ap rufina on CPAP (Primary Dx); Essential hypertension, benign; Amyloidosis, unspecified type (HCC); Grade I diastolic dysfunction Start: 02-17-2024 End: 02-17-2024 Telemedicine consultation with patient Katelyn Alfonso PALACIO Work Phone: Neurology Start: 02-15-2024 ambulatory Aruna Vetovit alva PA-C Work Phone: Orthopaedics Comment on above: hand is still red an d painful Start: 02-13-2024 End: 02-13-2024 Patient encounter procedure Edinson Zarate MD Work Phone: [facility] Comment on above: Systemic lupus eryth ematosus with other organ involvement, unspecified SLE type (HCC) (Primary Dx); Systemic lupus erythematosus, unspecified SLE type, unspecified organ involvement status (HCC); 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 Start: 02-06-2024 End: 02-06-2024 Patient encounter procedure Aruna Luciusvitz PA-C Work Phone: Orthopaedics Comment on above: Bilateral carpal nimesh mary jo syndrome (Primary Dx); Carpal tunnel syndrome on left Start: 01-31-2024 ambulatory Aruna Luciusvit z PA-C Work Phone: Orthopaedics Comment on above: Incision Red and Ten isma Start: 01-30-2024 Refill Edinson billings MD Work Phone: [facility] Comment on above: Refill Request Start: 01-20-2024 End: 01-20-2024 Admission to establishment [facility] 1 Work Phone: [facility] [place] Start: 01-20-2024 End: 01-20-2024 ambulatory Pac [facility] 1 Work Phone: Pre Anesthesia Comment on above: Pre-op evaluation (P rimary Dx); Essential hypertension, benign; Hyperlipidemia, unspecified hyperlipidemia type; Grade I diastolic dysfunction; Obstructive sleep apnea on CPAP; GERD without esophagitis; BPH with obstruction/lower urinary tract symptoms; Systemic lupus erythematosus, unspecified SLE type, unspecified organ involvement status (HCC); Major depression, recurrent, chronic (HCC); Prediabetes; Morbid obesity with body mass index (BMI) of 40.0 to 44.9 in adult (HCC) Start: 01-20-2024 End: 01-20-2024 Preprocedural examination done Pac [place] 1 Work Phone: [facility] Work Phone: Start: 01-19-2024 ambulatory Viri Hild DPM Work Phone: Podiatry Comment on above: My Handicapped Wilmar Srivastavad Refill Request Alexander Start: 01-17-2024 Telephone encounter Yoni spencer MD Work Phone: Orthopaedics Comment on above: Schedule Surgery Start: 01-16-2024 End: 01-16-2024 Patient encounter procedure Yoni Peng MD Work Phone: Orthopaedics Comment on above: Bilateral carpal nimesh mary jo syndrome (Primary Dx) Start: 01-10-2024 Refill Edinson billings MD Work Phone: [facility] Comment on above: Refill Request Start: 2023 [facility] [place] Comment on above: Population Health Na vigation Outreach ([employer] [facility] 2.16.24) Start: 11-30-2023 ambulatory [facility]da Neto [facility] [place] Start: 11-24-2023 End: 11-24-2023 ambulatory Edinson Zarate MD Work Phone: [facility] Comment on above: Chronic pain syndrom e (Primary Dx); Systemic lupus erythematosus, unspecified SLE type, unspecified organ involvement status (HCC); Numbness and tingling of foot; Glenohumeral arthritis Start: 11-24-2023 End: 11-24-2023 Telemedicine consultation with patient Edinson Zarate MD Work Phone: [facility] Start: 11-21-2023 Refill Edinson billings MD Work Phone: Family Medicine [place] Comment on above: Refill Request Start: 11-04-2023 Refill Layo EDGARDISTRICT RESOURCE OFFICER Work Phone: [facility] Comment on above: Refill Request Start: 08-22-2023 Telephone encounter Gris Heredia ( Coord) Radiology Comment on above: Appointment Start: 08-22-2023 End: 08-22-2023 Office outpatient visit 25 minutes Alex White APRN.DISTRICT RESOURCE OFFICER Work Phone: [facility] Comment on above: Paronychia of finger of right hand (Primary Dx) Start: 08-19-2023 End: 08-19-2023 ambulatory Emg 300) Work Phone: Neurology Comment on above: Arrived Start: 08-19-2023 End: 08-19-2023 Patient encounter procedure Emg 2 Neur [facility] (Max Weight: 300) Work Phone: [facility] Start: 08-18-2023 Refill Edinson billings MD Work Phone: [facility] Comment on above: Refill Request Start: 08-09-2023 ambulatory Christopher Frederick PA-C Work Phone: Urology Comment on above: Prescription Please Start: 08-02-2023 Telephone encounter Naima Palomino Radiology Comment on above: Appointment Start: 08-02-2023 End: 08-02-2023 Patient encounter procedure Aruna Menard PA-C Work Phone: Orthopaedics Comment on above: Bilateral carpal nimesh mary jo syndrome (Primary Dx); Bilateral hand numbness; Lupus (HCC) Start: 08-02-2023 End: 08-02-2023 Subsequent hospital visit by physician Radio General Winnie Fuchs Work Phone: Radiology Comment on above: Bilateral hand pain [M79.641, M79.642] Start: 07-29-2023 Refill Edinson billings MD Work Phone: [facility] Comment on above: Refill Request Start: 07-21-2023 Refill Layo Meryl A PRN.DISTRICT RESOURCE OFFICER Work Phone: [facility] Comment on above: Refill Request Start: 07-20-2023 Orders Only Aruna calle PA-C Work Phone: Orthopaedics Comment on above: Bilateral hand pain (Primary Dx) Start: 07-07-2023 End: 07-07-2023 ambulatory Layo Meryl DEICER REPAIRER PNEUMATIC.DISTRICT RESOURCE OFFICER Work Phone: [facility] Comment on above: Chronic cough (Prima ry Dx) Start: 07-07-2023 End: 07-07-2023 Telemedicine consultation with patient Layo Meryl DEICER REPAIRER PNEUMATIC.DISTRICT RESOURCE OFFICER Work Phone: [facility] Start: 07-06-2023 ambulatory Layo Meryl A PRN.DISTRICT RESOURCE OFFICER Work Phone: [facility] Comment on above: Persistent Cough and Sweating Episodes Start: 06-08-2023 Refill Edinson billings MD Work Phone: [facility] Comment on above: Refill Request Start: 05-25-2023 Refill Layo Meryl A PRN.DISTRICT RESOURCE OFFICER Work Phone: [facility] Comment on above: Refill Request Start: 05-22-2023 ambulatory Layo Meryl A PRN.DISTRICT RESOURCE OFFICER Work Phone: [facility] Comment on above: Still Contagious? Start: 05-18-2023 End: 05-18-2023 ambulatory Layo Meryl DEICER REPAIRER PNEUMATIC.DISTRICT RESOURCE OFFICER Work Phone: [facility] Comment on above: COVID-19 (Primary Dx ) Start: 05-18-2023 End: 05-18-2023 Telemedicine consultation with patient Layo Meryl DEICER REPAIRER PNEUMATIC.DISTRICT RESOURCE OFFICER Work Phone: [facility] Start: 05-17-2023 ambulatory Edinson billings MD Work Phone: [facility] Comment on above: oxygen for covid Covid19 Concern Start: 04-19-2023 End: 04-19-2023 Patient encounter procedure Pat Seo MD Work Phone: Rheumatology Comment on above: SLE (systemic lupus erythematosus related syndrome) (HCC) (Primary Dx); Small fiber neuropathy; Gammopathy; Medication monitoring encounter Start: 04-16-2023 ambulatory Pat davila MD Work Phone: Rheumatology Comment on above: Should I go in for b lood tests before Tuesday? Start: 04-10-2023 Refill Layo Meryl A PRN.DISTRICT RESOURCE OFFICER Work Phone: [facility] Comment on above: Refill Request Start: 03-27-2023 Refill Edinson billings MD Work Phone: [facility] Comment on above: Refill Request Start: 03-23-2023 ambulatory Nidhi Duque [facility] Comment on above: Population Health Na vigation Outreach ([employer] Care Gaps 5.30.23) Start: 02-11-2023 Telephone encounter Pat Seo MD Work Phone: Rheumatology Comment on above: Patient Update Start: 02-06-2023 ambulatory Edinson billings MD Work Phone: [facility] Comment on above: Time for Alexander Start: 02-02-2023 End: 02-02-2023 Subsequent hospital visit by physician Radio General Winnie Fuchs Work Phone: Radiology Comment on above: 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] Start: 02-02-2023 End: 02-02-2023 Patient encounter procedure Viri Gonzales DPM Work Phone: Podiatry Comment on above: Arthritis of midfoot (Primary Dx); Posterior tibial tendon dysfunction (PTTD) of both lower extremities; Pes planus of both feet; Lupus (HCC) Start: 01-31-2023 Refill Layoevelyn GERMAINN.DISTRICT RESOURCE OFFICER Work Phone: Family Medicine [place] Comment on above: Refill Request Start: 01-25-2023 Telephone encounter Edinson Zarate MD Work Phone: [facility] Comment on above: eye exam ([facility] (exam for plaquenil/hydroxychloroquine) 01/25/23) Start: 01-24-2023 ambulatory Katelyn schneider DEICER REPAIRER PNEUMATIC.DISTRICT RESOURCE OFFICER Work Phone: Neurology Comment on above: Wrong Mask? Start: 01-24-2023 Telephone encounter Pat Seo MD Work Phone: Rheumatology Comment on above: Patient Update Start: 01-23-2023 ambulatory Pat davila MD Work Phone: Rheumatology Comment on above: Try Prednisone Again ? Start: 01-18-2023 ambulatory Edinson billings MD Work Phone: Internal Medicine Main [place] Start: 01-11-2023 End: 01-11-2023 Patient encounter procedure Edinson Zarate MD Work Phone: [facility] Comment on above: Primary osteoarthrit is involving multiple joints (Primary Dx); Grade I diastolic dysfunction Start: 12-24-2022 Telephone encounter Edinson Zarate MD Work Phone: [facility] Comment on above: Dose Clarification Start: 12-23-2022 Refill Edinson billings MD Work Phone: [facility] Comment on above: Refill Request Start: 12-20-2022 ambulatory Gricelda Trinidad [facility] [place] Comment on above: Population Health Na vigation Outreach (HCC) Start: 11-05-2022 ambulatory Edinson billings MD Work Phone: [facility] Comment on above: Jordyn has severe t rouble Start: 10-27-2022 Refill Edinson billings MD Work Phone: [facility] Comment on above: Refill Request Start: 10-05-2022 Refill Edinson billings MD Work Phone: [facility] Comment on above: Refill Request Start: 10-03-2022 ambulatory Edinson billings MD Work Phone: [facility] Comment on above: Prescription for Inh aler? Start: 10-01-2022 Orders Only Loraine Holcomb MD Work Phone: Pulmonary Medicine Start: 09-29-2022 Orders Only Loraine Holcomb MD Work Phone: Pulmonary Medicine Start: 09-24-2022 End: 09-24-2022 ambulatory Pulm Lab [facility] Work Phone: [facility] Comment on above: Spirometry Start: 09-24-2022 End: 09-24-2022 Patient encounter procedure Pulm Lab [facility] Work Phone: [facility] Start: 09-24-2022 End: 12-23-2022 ambulatory Pulm Lab [facility] Work Phone: [facility] Comment on above: Spirometry Start: 09-24-2022 End: 09-24-2022 Patient encounter procedure Pulm Lab [facility] Work Phone: [facility] Start: 09-17-2022 E-mail encounter fro m caregiver Jacqueline Varghese MD Work Phone: [facility] Start: 09-17-2022 Patient encounter procedure Jacqueline Varghese MD Work Phone: Pulmonary Medicine Comment on above: Pulmonary Testing an d Appointment Start: 09-14-2022 Telephone encounter Katelyn Hamilton APRN.DISTRICT RESOURCE OFFICER Work Phone: Neurology Comment on above: PAP Rx PAP Mask Rx Start: 09-14-2022 End: 09-14-2022 Patient encounter procedure Katelyn Hamilton APRN.DISTRICT RESOURCE OFFICER Work Phone: Neurology Comment on above: Obstructive sleep ap rufina on CPAP (Primary Dx); Essential hypertension, benign; MARCELINA (obstructive sleep apnea) Start: 09-13-2022 End: 09-13-2022 Patient encounter procedure Loraine Holcomb MD Work Phone: Pulmonary Medicine Comment on above: MONACO (dyspnea on exer tion) (Primary Dx); Post-COVID chronic dyspnea; Lupus (HCC); Morbid obesity (HCC); Gastroesophageal reflux disease, unspecified whether esophagitis present Start: 09-01-2022 ambulatory Edinson billings MD Work Phone: Family Practice Comment on above: My Jordyn is N ow also Covid Positive Start: 09-01-2022 Telephone encounter Edinson Zarate MD Work Phone: Family Medicine [place] Comment on above: Patient Question Start: 08-31-2022 Telephone encounter Edinson Zarate MD Work Phone: Family Practice Comment on above: Received Outside Med ical Records ([facility] 08/30/22) Start: 08-31-2022 End: 08-31-2022 ambulatory Kathya Aviles APRN.DISTRICT RESOURCE OFFICER Work Phone: Family Medicine Comment on above: Viral illness (Prima ry Dx); COVID-19 virus infection; SOB (shortness of breath); Acute cough Start: 08-31-2022 End: 08-31-2022 Telemedicine consultation with patient Kathya Aviles DAGOBERTO.DISTRICT RESOURCE OFFICER Work Phone: [facility] Start: 08-30-2022 End: 08-30-2022 Emergency department patient visit Nidhi Carrasco Facility:[facility] Start: 08-30-2022 ambulatory Edinson billings MD Work Phone: Pediatrics [place] Comment on above: Covid19 Concern Start: 08-30-2022 Telephone encounter Edinson Zarate MD Work Phone: [facility] Comment on above: Received [facility] (Chest [facility]) Start: 08-30-2022 End: 08-30-2022 Emergency department patient visit [facility] Start: 08-15-2022 Telephone encounter Pat Seo MD Work Phone: Rheumatology Comment on above: Results (CT chest); Patient Conference Start: 08-13-2022 End: 08-13-2022 Refill Philippe Dawson APRN.DISTRICT RESOURCE OFFICER Work Phone: Hematology/Oncology Comment on above: Nystatin Problem? Interstitial pulmona ry disease (HCC) [J84.9] Start: 08-09-2022 ambulatory Christopher Frederick PA-C Work Phone: Urology Comment on above: Nystatin Cream and P owder still needed Start: 08-07-2022 Telephone encounter Pat Seo MD Work Phone: Rheumatology Comment on above: Results Start: 08-06-2022 ambulatory Pat davila MD Work Phone: Rheumatology Comment on above: Testing Prednisone's Effectiveness Start: 08-06-2022 End: 08-06-2022 Patient encounter procedure Christopher Frederick PA-C Work Phone: Urology Comment on above: BPH with obstruction /lower urinary tract symptoms (Primary Dx) Start: 08-02-2022 ambulatory Christopher Frederick PA-C Work Phone: Urology Comment on above: Use Nystatin Again? Start: 07-26-2022 ambulatory Pat davila MD Work Phone: Rheumatology Comment on above: Testing Prednisone's Effectiveness Start: 07-23-2022 End: 07-23-2022 ambulatory Jacqueline Larson DAGOBERTO.DISTRICT RESOURCE OFFICER Work Phone: General Surgery Comment on above: MARCELINA (obstructive sle ep apnea) (Primary Dx); Obesity, Class III, BMI 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) (HCC); Diastasis recti Start: 07-23-2022 End: 07-23-2022 Telemedicine consultation with patient Jacqueline Larson DAGOBERTO.DISTRICT RESOURCE OFFICER Work Phone: [facility] Start: 07-21-2022 Refill Erwin Yang MD Work Phone: [facility] Comment on above: Refill Request Start: 07-13-2022 End: 07-13-2022 Patient encounter procedure Pat Seo MD Work Phone: Rheumatology Comment on above: SLE (systemic lupus erythematosus related syndrome) (HCC) (Primary Dx); Small fiber neuropathy; Cough, unspecified type; Medication monitoring encounter Start: 07-12-2022 End: 07-12-2022 Patient encounter procedure Janny Hill PA-C Work Phone: Orthopaedics Comment on above: Right elbow pain (Pr imary Dx); Localized swelling, mass, or lump of right upper extremity; Tendinitis of elbow; Primary osteoarthritis of right elbow Start: 07-12-2022 End: 07-12-2022 Subsequent hospital visit by physician Mary [facility] Antonino Work Phone: Radiology Comment on above: Pain [R52] Start: 07-05-2022 ambulatory PHILIPPE DAWSON Facility: [id number] Start: 07-05-2022 End: 07-05-2022 Subsequent hospital visit by physician [facility] Work Phone: Radiology CT Scan Comment on above: 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) [C90.00] Start: 07-01-2022 Orders Only Janny contreras PA-C Work Phone: Orthopaedics Comment on above: Pain (Primary Dx) Start: 06-30-2022 ambulatory Edinson billings MD Work Phone: [facility] Comment on above: Alexander Start: 06-09-2022 Refill Layoevelyn Verdugo PRN.DISTRICT RESOURCE OFFICER Work Phone: [facility] Comment on above: Refill Request Start: 05-29-2022 Refill Edinson billings MD Work Phone: [facility] Comment on above: Refill Request Start: 05-28-2022 End: 05-28-2022 ambulatory Philippe Dawson APRN.DISTRICT RESOURCE OFFICER Work Phone: Hematology/Oncology Comment on above: Gammopathy (Primary Dx); Sore of lip; 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) Start: 05-28-2022 End: 05-28-2022 Patient encounter procedure Philippe Dawson APRN.DISTRICT RESOURCE OFFICER Work Phone: [facility] Start: 05-20-2022 End: 05-20-2022 Patient encounter procedure Edinson Zarate MD Work Phone: [facility] Comment on above: Obesity, Class III, BMI 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) (HCC) (Primary Dx); Primary osteoarthritis involving multiple joints; Major depression, recurrent, chronic (HCC); Diastasis recti Start: 05-01-2022 ambulatory Pat davila MD Work Phone: Rheumatology Comment on above: Second Moderna Boost er Start: 04-19-2022 End: 04-19-2022 Subsequent hospital visit by physician Mary [facility] Pablito Fuchs Work Phone: Radiology Comment on above: Elbow pain, right [M 25.521] Start: 04-19-2022 End: 04-19-2022 Patient encounter procedure Edinson Zarate MD Work Phone: Family Practice Comment on above: Elbow pain, right (P rimary Dx) Start: 04-02-2022 ambulatory Edinson billings MD Work Phone: [facility] Comment on above: Gas Problem while Ta warren Diclofenac Start: 03-13-2022 Telephone encounter Pat Seo MD Work Phone: Rheumatology Comment on above: Results; Patient Con ference; Referral Information Start: 03-11-2022 Telephone encounter Philippe delgadillo DEICER REPAIRER PNEUMATIC.DISTRICT RESOURCE OFFICER Work Phone: Hematology/Oncology Comment on above: Patch Finisher - O ther Refill Request Start: 03-11-2022 End: 03-17-2022 Patient encounter procedure Diana Whyte MD Work Phone: Otolaryngology Comment on above: Cheek mass (Primary Dx) Start: 03-09-2022 End: 03-09-2022 Patient encounter procedure Pat Seo MD Work Phone: Rheumatology Comment on above: SLE (systemic lupus erythematosus related syndrome) (HCC) (Primary Dx); Small fiber neuropathy; Gammopathy; Oral lesion; Medication monitoring encounter Start: 02-25-2022 End: 02-25-2022 Subsequent hospital visit by physician Mary MOCTEZUMA Work Phone: Radiology Comment on above: Gammopathy [D47.2] Start: 02-25-2022 End: 02-25-2022 ambulatory Philippe Dawson DEICER REPAIRER PNEUMATIC.DISTRICT RESOURCE OFFICER Work Phone: Hematology/Oncology Comment on above: Monoclonal paraprote inemia (Primary Dx); Gammopathy; Small fiber neuropathy Start: 02-25-2022 End: 02-25-2022 Patient encounter procedure Omid Roca MD Work Phone: Neurology Comment on above: Small fiber neuropat hy Start: 02-23-2022 Telephone encounter Edinson Zarate MD Work Phone: Family Practice Comment on above: Received Outside [facility] Records ([facility]) Start: 02-17-2022 ambulatory Irina Mohr MA [facility] Comment on above: Population Health Na vigation Outreach ([employer]) Start: 02-15-2022 Telephone encounter Edinson Zarate MD Work Phone: [facility] [place] Comment on above: Medication Problem Start: 01-25-2022 ambulatory Pat davila MD Work Phone: Rheumatology Comment on above: Results Start: 01-25-2022 E-mail encounter fro m caregiver Pat Seo MD Work Phone: [facility] Start: 01-17-2022 Telephone encounter Pat Seo MD Work Phone: Rheumatology Comment on above: Results Start: 01-14-2022 End: 01-14-2022 ambulatory Edinson Zarate MD Work Phone: [facility] Comment on above: Essential hypertensi on (Primary Dx); 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 Start: 01-14-2022 End: 01-14-2022 Telemedicine consultation with patient Edinson Zarate MD Work Phone: [facility] Start: 01-12-2022 End: 01-12-2022 Patient encounter procedure Pat Seo MD Work Phone: Rheumatology Comment on above: SLE (systemic lupus erythematosus related syndrome) (HCC) (Primary Dx); Gammopathy; Small fiber neuropathy; Medication monitoring encounter Start: 06-21-2017 End: 06-22-2017 Evaluation and management of inpatient [facility] Start: 06-13-2017 Ambulatory [facility] Procedures Date Procedure Procedure Detail Performing Clinician Start: 06-29-2024 Noninvasive ear/pulse oximetry multiple deter Adilia Auguste DEICER REPAIRER PNEUMATIC.DISTRICT RESOURCE OFFICER Work Phone: Start: 06-29-2024 Brncdilat rspse spmtry pre&post-brncdilat admn Adilia Auguste APRN.DISTRICT RESOURCE OFFICER Work Phone: Start: 04-10-2024 Nitric oxide gas determination Loraine Holcomb MD Work Phone: Start: 03-22-2024 Rp loclzj juan spect w/ct 1 area 1 day imaging Natalie Chong MD Work Phone: Start: 03-14-2024 Gluc bld gluc mntr dev cleared fda spec home use [facility] Provider Start: 03-06-2024 Ct soft tissue neck w/contrast material [facility] Provider Start: 02-29-2024 Ecg routine ecg w/least 12 lds i&r only Natalie Chong MD Work Phone: Start: 02-28-2024 Diagnostic bone marrow biopsies & aspirations Keri Wagner DEICER REPAIRER PNEUMATIC.DISTRICT RESOURCE OFFICER Work Phone: Start: 02-28-2024 FLOW CYTOMETRY FOR LEUKEMIA/LYMPHOMA (FCLL) Philippe Dawson DEICER REPAIRER PNEUMATIC.DISTRICT RESOURCE OFFICER Work Phone: Start: 02-28-2024 FLOW CYTOMETRY FOR LEUKEMIA/LYMPHOMA (FCLL) PERFORMABLE Philippe Dawson DEICER REPAIRER PNEUMATIC.DISTRICT RESOURCE OFFICER Work Phone: Start: 02-06-2024 Lipid 1996 panel - Serum or Plasma Yoni Peng MD Work Phone: Start: 08-22-2023 Cul bact xcpt urine blood/stool aerobic isol Alex White DEICER REPAIRER PNEUMATIC.DISTRICT RESOURCE OFFICER Work Phone: Start: 08-19-2023 Nerve conduction studies 5-6 studies Arunadra Menard PA-C Work Phone: Start: 08-02-2023 Radex hand minimum 3 views Aruna Marilou tz PA-C Work Phone: Start: 07-07-2023 Radiologic exam chest 2 views Layo Cuellar DEICER REPAIRER PNEUMATIC.DISTRICT RESOURCE OFFICER Work Phone: Start: 02-08-2023 Lipid 1996 panel - Serum or Plasma Layo Cuellar DEICER REPAIRER PNEUMATIC.DISTRICT RESOURCE OFFICER Work Phone: Start: 02-02-2023 Radex foot complete minimum 3 views Viri Gonzales DPM Work Phone: Start: 09-24-2022 Nitric oxide gas determination Loraine Holcomb MD Work Phone: Start: 09-24-2022 Noninvasive ear/pulse oximetry multiple deter Loraine Holcomb MD Work Phone: Start: 09-24-2022 Plethysmography lung volumes w/wo airway resist Loraine Holcomb MD Work Phone: Start: 09-24-2022 Unlisted pulmonary service/procedure Loraine Holcomb MD Work Phone: Start: 08-30-2022 Plain chest X-ray Start: 08-13-2022 Ct thorax w/o contrast material Pat Seo MD Work Phone: Start: 08-06-2022 Urnls dip stick/tablet rgnt auto w/o microscopy Christopher Frederick PA-C Work Phone: Start: 07-12-2022 End: 07-12-2022 Radex elbow complete minimum 3 views Janny Hill PA-C Work Phone: Start: 07-05-2022 CT WHOLE BODY SKULL TO KNEE WO IVCON Philippe Dawson APRN.DISTRICT RESOURCE OFFICER Work Phone: Start: 04-19-2022 Radex elbow complete minimum 3 views Edinson Zarate MD Work Phone: Start: 03-11-2022 Level iv surg pathology gross&microscopic exam Diana Whyte MD Work Phone: Start: 02-25-2022 Radiologic examination osseous survey compl Philippe Dawson APRN.DISTRICT RESOURCE OFFICER Work Phone: Start: 09-01-2018 Colonoscopy Edinson Zarate MD Work Phone: Start: 05-21-2013 End: 06-13-2017 H/O: artificial joint 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 Aruna JAYC Work Phone: Start: 03-10-2011 H/O: artificial joint Hip replacement Edinson Zarate MD Work Phone: Viral antigen assay Plan of Treatment Date Care Activity Detail Author Start: 10-02-2030 Urine microalbumin profile [facility] Start: 02-05-2029 Lipid panel Lipid Screening [facility] Start: 09-01-2028 Colonoscopy COLONOSCOPY [facility] Start: 09-01-2028 COLORECTAL CANCER SCREENING COLORECTAL CANCER SCREENING [facility] Start: 09-01-2028 Screening for malignant neoplasm of colon [facility] Start: 06-18-2028 Diabetes Screening Diabetes Screening [facility] Start: 04-18-2028 Diabetes Screening Diabetes Screening [facility] Start: 03-02-2028 Diabetes Screening Diabetes Screening [facility] Start: 02-09-2028 Lipid 1996 panel - Serum or Plasma Lipid Screening [facility] Start: 02-09-2028 Lipid panel Lipid Screening [facility] Start: 02-09-2028 LIPID SCREEN LIPID SCREEN [facility] Start: 12-04-2027 Diabetes Screening Diabetes Screening [facility] Start: 02-12-2027 Diabetes Screening Diabetes Screening [facility] Start: 02-05-2027 Diabetes Screening Diabetes Screening [facility] Start: 01-13-2027 LIPID SCREEN LIPID SCREEN [facility] Start: 03-05-2026 Annual PCP Team Chronic Disease Visit Annual PCP Team Chronic Disease Visit [facility] Start: 03-05-2026 BP Controlled (<130/80) BP Controlled (<130/80) [facility] Start: 02-11-2026 Annual PCP Team Chronic Disease Visit Annual PCP Team Chronic Disease Visit [facility] Start: 02-08-2026 DIABETES SCREEN DIABETES SCREEN [facility] Start: 02-08-2026 Diabetes Screening Diabetes Screening [facility] Start: 09-09-2025 End: 09-09-2025 Patient encounter procedure 09/09/2025 2:00 PM EST Office Visit Family Practice [address] [place], [place] [id number] Edinson Zarate MD [address] [facility] [facility] [facility] [address] [place] [id number] 6 mo Follow up Family Practice Comment on above: 6 mo Follow up Start: 08-21-2025 End: 08-21-2025 Patient encounter procedure 08/21/2025 2:30 PM EST Office Visit Cardiology [address] [id number] Edinson Thakur DO [address] [place] [address] Syncope, unspecified syncope type [R55] Cardiology Comment on above: Syncope, unspecified syncope type [R55] Start: 08-21-2025 End: 08-21-2025 ambulatory 08/21/2025 1:30 PM EST Procedure Cardiology [address] [place] [address] Syncope, unspecified syncope type [R55] Cardiology Comment on above: Syncope, unspecified syncope type [R55] Start: 08-07-2025 Annual PCP Team Chronic Disease Visit Annual PCP Team Chronic Disease Visit [facility] Start: 07-19-2025 End: 07-19-2025 Patient encounter procedure 07/19/2025 9:00 AM EDT Office Visit [facility] [address] [place] [id number] Pat Seo MD [address] [place] [address] 4m f/u SLE [facility] Comment on above: 4m f/u SLE Start: 07-16-2025 End: 07-16-2025 ambulatory 07/16/2025 1:00 PM EDT [facility] [address] [address] Pat Seo MD [address] [place] [address] SLE [facility] Comment on above: SLE Start: 07-12-2025 DIABETES SCREEN DIABETES SCREEN [facility] Start: 07-11-2025 End: 07-11-2025 Patient encounter procedure 07/11/2025 3:00 PM EDT Office Visit Rheumatology [address] [address] Pat Seo MD [address] [place] [address] SLE F/U Rheumatology Comment on above: SLE F/U Start: 06-24-2025 End: 06-24-2025 Follow-up encounter 06/24/2025 1:30 PM EDT Visit (SP) Office Hematology/Oncology [address] [place] [address] Philippe Dawson APRN.DISTRICT RESOURCE OFFICER [address] [place] [address] FOLLOW UP Hematology/Oncology Comment on above: FOLLOW UP Start: 06-21-2025 End: 09-20-2025 Comprehensive metabolic 2000 panel - Serum or Plasma COMPREHENSIVE METABOLIC PANEL Lab Routine Amyloidosis, unspecified type (HCC) Expected: 06/21/2025, Expires: 09/20/2025 [facility] Work Phone: Comment on above: Expected: 06/21/2025, Expires: Start: 06-21-2025 End: 09-20-2025 HIGH SENSITIVITY TROPONIN T HIGH SENSITIVITY TROPONIN T Lab Routine Amyloidosis, unspecified type (HCC) Expected: 06/21/2025, Expires: 09/20/2025 [facility] Comment on above: Expected: 06/21/2025, Expires: Start: 06-21-2025 End: 09-20-2025 Natriuretic peptide.B prohormone N-Terminal [Mass/volume] in Serum or Plasma NT PRO BNP Lab Routine Amyloidosis, unspecified type (HCC) Expected: 06/21/2025, Expires: 09/20/2025 [facility] Comment on above: Expected: 06/21/2025, Expires: Start: 06-21-2025 End: 06-21-2025 Patient encounter procedure 06/21/2025 8:50 AM EDT Office Visit Cardiology [address] [place] [address] ECHO Cardiology Comment on above: ECHO Start: 06-18-2025 End: 06-18-2025 ambulatory 06/18/2025 9:30 AM EDT Results Only [facility] [address] [place] [address] [facility] Start: 06-03-2025 Influenza vaccination Influenza Vaccine (#1) [facility] Start: 05-20-2025 DIABETES SCREEN DIABETES SCREEN [facility] Start: 04-23-2025 BP Controlled (<130/80) BP Controlled (<130/80) [facility] in Start: 04-18-2025 End: 04-18-2025 ambulatory 04/18/2025 9:00 AM EDT Results Only [facility] [address] [facility] [place] [place] [address] [facility] Start: 03-05-2025 End: 03-05-2025 Patient encounter procedure 03/05/2025 2:00 PM EDT Office Visit Family Practice [address] [address] Edinson Zarate MD [address] [facility] [place] [address] Annual Wellness - Chronic disease follow up [facility] Comment on above: Annual Wellness - Chronic disease follow up Start: 03-01-2025 End: 03-01-2025 Patient encounter procedure 03/01/2025 11:40 AM EDT Office Visit [facility] [address] [address] Pat Seo MD [address] [place], [place] [id number] FOLLOW UP [facility] Comment on above: FOLLOW UP Start: 02-25-2025 DIABETES SCREEN DIABETES SCREEN [facility] Start: 02-12-2025 Annual PCP Team Chronic Disease Visit Annual PCP Team Chronic Disease Visit [facility] Start: 02-12-2025 BP Controlled (<130/80) BP Controlled (<130/80) [facility] in Start: 01-19-2025 BP Controlled (<130/80) BP Controlled (<130/80) [facility] Start: 01-13-2025 DIABETES SCREEN DIABETES SCREEN [facility] Start: 11-24-2024 Annual PCP Team Chronic Disease Visit Annual PCP Team Chronic Disease Visit [facility] Start: 10-18-2024 End: 10-18-2024 Patient encounter procedure 10/18/2024 3:00 PM EST Office Visit Endocrinology [facility] [address] [place] [address] Nnamdi Mejia APRN.DISTRICT RESOURCE OFFICER [address] [place] [address] 3 month weight management follow up Endocrinology [facility] Comment on above: 3 month weight management follow up Start: 10-05-2024 End: 10-05-2024 Patient encounter procedure 10/05/2024 2:30 PM EST Office Visit Pulmonary Medicine [address] [address] Adilia Auguste APRN.DISTRICT RESOURCE OFFICER [address] [address] [facility] F/U Pulmonary Medicine Comment on above: [facility]ACO F/U Start: 10-04-2024 End: 10-04-2024 Patient encounter procedure 10/04/2024 11:20 AM EST Office Visit Rheumatology [address] [address] Pat Seo MD [address] [place] [address] Lupus, amyloidosis and osteoarthritis follow up Rheumatology Comment on above: Lupus, amyloidosis and osteoarthritis [facility] Start: 10-03-2024 Advance Directive Discussion Advance Directive Discussion [facility] Start: 10-01-2024 End: 10-01-2024 ambulatory 10/01/2024 3:00 PM EST OT/PT/Speech Visit [facility] [address] [place], [place] [id number] Harman Gilliam, PT [address] [place] [address] M54.42,M54.41,G89.29 (ICD-10-CM) - Chronic bilateral low back pain with bilateral sciatica [facility] Comment on above: M54.42,M54.41,G89.29 (ICD-10-CM) - Chron ic bilateral low back pain with bilateral sciatica Start: 09-20-2024 End: 09-20-2024 ambulatory 09/20/2024 3:00 PM EST OT/PT/Speech Visit [facility] [address] [place] [address] Harman Gilliam, PT [address] [place] [address] M54.42,M54.41,G89.29 (ICD-10-CM) - Chronic bilateral low back pain with bilateral sciatica [facility] Comment on above: M54.42,M54.41,G89.29 (ICD-10-CM) - Chron ic bilateral low back pain with bilateral sciatica Start: 09-13-2024 End: 09-13-2024 ambulatory 09/13/2024 2:15 PM EST OT/PT/Speech Visit [facility] [address] [place] [address] Harman Gilliam, PT [address] [place] [address] M54.42,M54.41,G89.29 (ICD-10-CM) - Chronic bilateral low back pain with bilateral sciatica [facility] Comment on above: M54.42,M54.41,G89.29 (ICD-10-CM) - Chron ic bilateral low back pain with bilateral sciatica Start: 09-08-2024 Annual PCP Team Chronic Disease Visit Annual PCP Team Chronic Disease Visit [facility] Start: 09-07-2024 End: 09-07-2024 ambulatory 09/07/2024 3:15 PM EST OT/PT/Speech Visit [facility] Physical Therapy [address] [place] [address] Harman Gilliam, PT [address] [place] [address] M54.42,M54.41,G89.29 (ICD-10-CM) - Chronic bilateral low back pain with bilateral sciatica [facility] Physical [facility] Comment on above: M54.42,M54.41,G89.29 (ICD-10-CM) - Chron ic bilateral low back pain with bilateral sciatica Start: 08-23-2024 End: 08-23-2024 ambulatory 08/23/2024 3:45 PM EST OT/PT/Speech Visit [facility] [address] [place] [address] Harman Gilliam, PT [address] [place], [place] [id number] Chronic bilateral low back pain with bilateral sciatica [M54.42, M54.41, G89.29] [facility] Comment on above: Chronic bilateral low back pain with antolin ateral sciatica [M54.42, M54.41, G89.29] Start: 08-21-2024 End: 08-21-2024 ambulatory 08/21/2024 2:00 PM EST [facility] Patient Outreach Endocrinology [address] [place] [address] Remberto Cohen, Lead Rider Severe obesity (BMI >= 40) ([facility]) [E66.01] Endocrinology Comment on above: Severe obesity (BMI >= 40) ([facility]) [E66.01 ] Start: 08-20-2024 End: 08-20-2024 Patient encounter procedure 08/20/2024 2:00 PM EST Office Visit [facility] [address] [place] [address] Katelyn Fernandez PA-C [address] [place] [address] FOLLOW UP CONSULT [facility] Comment on above: FOLLOW UP CONSULT Start: 08-09-2024 End: 08-09-2024 Patient encounter procedure 08/09/2024 2:40 PM EST Office Visit Orthopaedic Surgery [facility] [address] [place] [address] Yoni Peng MD [address] [place] [address] Right hand, fingers are curling, cannot straighten Orthopaedic Surgery [facility] Comment on above: Right hand, fingers are curling, cannot straighten Start: 08-08-2024 End: 11-07-[address] [facility] Work Phone: Comment on above: Expected: 08/08/2024, Expires: Start: 08-08-2024 End: 08-08-2024 Patient encounter procedure 08/08/2024 9:20 AM EST Office Visit [facility] [address] [address] Pat Seo MD [address] [place] [address] [facility] Comment on above: FU [facility]US Start: 08-07-2024 End: 08-07-2024 Patient encounter procedure 08/07/2024 3:20 PM EST Office Visit Family Practice [address] [facility] [address] [place], [place] [address] Edinson Zarate MD [address] [facility] [address] [place] [phone] medication refill request Family Practice Comment on above: medication refill request Start: 08-03-2024 End: 08-03-2024 Patient encounter procedure 08/03/2024 1:50 PM EDT Office Visit Spine Medicine [address] [place] [id number] Bianca Denise DO [address] [place] [address] LBP, Sciatica Spine Medicine Comment on above: LBP, Sciatica Start: 07-17-2024 End: 07-17-2024 Patient encounter procedure 07/17/2024 2:30 PM EDT Office Visit [facility]ative [facility] [address] [place] [address] Jhon Tate, Viky Ac [address] [place] [address] ACU BACK PAIN [facility] Comment on above: ACU BACK PAIN Start: 07-16-2024 End: 07-16-2024 Patient encounter procedure 07/16/2024 1:30 PM EDT Office Visit Podiatry [address] [place] [address] Pat Garibay [address] [place] [address] Neuropathy F/U Podiatry Comment on above: Neuropathy F/U Start: 07-09-2024 End: 07-09-2024 ambulatory 07/09/2024 2:00 PM EDT Education Endocrinology [address] [place] [address] Danette Hanson, RD [address] [address] Severe obesity (BMI >= 40) ([facility]) [E66.01] Endocrinology Comment on above: Severe obesity (BMI >= 40) ([facility]) [E66.01 ] Start: 07-07-2024 Annual PCP Team Chronic Disease Visit Annual PCP Team Chronic Disease Visit [facility] Start: 07-03-2024 End: 07-03-2024 Patient encounter procedure 07/03/2024 11:00 AM EDT Office Visit [facility] [address] [place] [address] Jhon Tate R [address] [place] [address] ACU BACK PAIN [facility] Comment on above: ACU BACK PAIN Start: 07-02-2024 End: 07-02-2024 Patient encounter procedure 07/02/2024 2:00 PM EDT Office Visit Pulmonary Medicine [address] [address] Adilia Auguste, DEICER REPAIRER PNEUMATIC.DISTRICT RESOURCE OFFICER [address] [phone] follow up Pulmonary Medicine Comment on above: follow up Start: 06-29-2024 End: 06-29-2024 ambulatory PULM LAB [facility] Comment on above: pft Start: 06-28-2024 End: 06-28-2024 Patient encounter procedure Endocrinology [facility] Comment on above: I have not been able to loose weight. 1B/58 Start: 06-26-2024 End: 06-26-2024 Patient encounter procedure 06/26/2024 3:30 PM EDT Office Visit [facility] [address] [place] [address] Jhon Tate R Ac [address] [place] [address] ACU BACK PAIN [facility] Comment on above: ACU BACK PAIN Start: 06-21-2024 End: 06-21-2024 Patient encounter procedure 06/21/2024 2:00 PM EDT Office Visit [facility] Medicine [address] [place] [address] Jhon Tate R Ac [address] [place] [address] ACU BACK PAIN [facility] Comment on above: ACU BACK PAIN Start: 06-18-2024 End: 06-18-2024 Patient encounter procedure Cardiology Comment on above: Cardiac Amyloidosis Start: 06-06-2024 End: 06-06-2024 ambulatory 06/06/2024 2:00 PM EDT [facility] GMIT YARITZA ZARCO [address] [place] [address] Susan Lr, [facility] [address] [place] [address] 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] [facility] Comment on above: 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] Start: 06-06-2024 End: 09-05-2024 MISC SEND OUT TST 1 MISC SEND OUT TST 1 Lab Routine Other amyloidosis (HCC) Expected: 06/06/2024, Expires: 09/05/2024 [facility] Work Phone: Comment on above: Expected: 06/06/2024, Expires: Start: 06-05-2024 End: 06-05-2024 Patient encounter procedure 06/05/2024 2:00 PM EDT Office Visit [facility] Medicine [address] [place] [address] Jhon Tate R Ac [address] [place] [address] ACU BACK PAIN [facility] Comment on above: ACU BACK PAIN Start: 06-03-2024 Covid-19 Vaccine ( season) Covid-19 Vaccine ( season) [facility] Start: 06-03-2024 Covid-19 Vaccine () Covid-19 Vaccine () [facility] Start: 06-03-2024 Influenza vaccination Influenza [facility] Start: 05-30-2024 End: 05-30-2024 ambulatory 05/30/2024 11:30 AM EDT [facility] Neurology [address] [place] [address] Shavon Dawkins APRN.DISTRICT RESOURCE OFFICER [address] [place] [address] Neurology Start: 05-29-2024 End: 05-29-2024 Patient encounter procedure 05/29/2024 7:30 AM EDT Office Visit [facility] Medicine [address] [place] [address] Jhon Tate R Ac [address] [place] [address] NEW ACUPUNCTURE CHRONIC PAIN LOW BACK [facility] Comment on above: NEW ACUPUNCTURE CHRONIC PAIN LOW BACK Start: 05-18-2024 ANNUAL PCP TEAM CHRONIC DISEASE VISIT ANNUAL PCP TEAM CHRONIC DISEASE VISIT [facility] Start: 04-23-2024 End: 04-23-2024 Patient encounter procedure 04/23/2024 11:00 AM EDT Office Visit [facility] [address] [place] [address] Katelyn Fernandez PA-C [address] [place] [address] How to live with chronic pain. [facility] Comment on above: How to live with chronic pain. Start: 04-16-2024 End: 04-16-2024 Patient encounter procedure 04/16/2024 1:30 PM EDT Office Visit [facility] Medicine [address] [place] [address] Katelyn Fernandez PA-C [address] [place] [address] How to live with chronic pain. [facility] Comment on above: How to live with chronic pain. Start: 04-10-2024 End: 04-10-2024 Patient encounter procedure 04/10/2024 2:00 PM EDT Office Visit Pulmonary Medicine [address] [address] Adilia Auguste, DEICER REPAIRER PNEUMATIC.DISTRICT RESOURCE OFFICER [address] [address] sob Pulmonary Medicine Comment on above: sob Start: 04-10-2024 End: 04-10-2024 ambulatory 04/10/2024 1:45 PM EDT Procedure Pulmonary Medicine [address] [address] SOB (shortness of breath) [R06.02] Pulmonary Medicine Comment on above: SOB (shortness of breath) [R06.02] Start: 04-03-2024 End: 07-03-[address] LUPUS ANTICO[address] PL Lab Routine SLE (systemic lupus erythematosus related syndrome) (HCC) Expected: 04/03/2024, Expires: 07/03/2024 [facility] Work Phone: Comment on above: Expected: 04/03/2024, Expires: Start: 03-30-2024 ANNUAL PCP TEAM CHRONIC DISEASE VISIT ANNUAL PCP TEAM CHRONIC DISEASE VISIT [facility] Start: 03-22-2024 End: 03-22-2024 Patient encounter procedure Cardiology Lab Comment on above: ECHO, 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] NM SPECT/CT CARDIAC AMYLOID, 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] Start: 03-14-2024 End: 03-14-2024 Patient encounter procedure Molecular Imaging Comment on above: NM PET/CT WHOLE BODY INITIAL Start: 03-13-2024 End: 03-13-2024 Patient encounter procedure 03/13/2024 8:50 AM EDT Office Visit Cardiology [address] [place] [address] [D47.2] ECHO Cardiology Comment on above: [D47.2] ECHO Start: 03-12-2024 End: 03-12-2024 Patient encounter procedure 03/12/2024 3:15 PM EDT Office Visit Orthopaedics [address] [place], [place] [id number] Yoni Peng MD [address] [place] [address] Post op revision left CTR Orthopaedics Comment on above: Post op revision left CTR Start: 03-06-2024 End: 03-06-2024 Patient encounter procedure 03/06/2024 9:20 AM EDT Appointment Cat Scan [address] [place], [place] [id number] RT Clavicular Head Mass R22.1 Cat Scan Comment on above: RT Clavicular Head Mass R22.1 Start: 03-05-2024 End: 03-05-2024 ambulatory 03/05/2024 3:00 PM EDT [facility] Neurology [address] [place] [address] Shavon Dawkins APRN.DISTRICT RESOURCE OFFICER [address] [place] [address] SLEEP STUDY FU Neurology Comment on above: SLEEP STUDY FU Start: 03-01-2024 End: 03-01-2024 Patient encounter procedure 03/01/2024 2:40 PM EDT Office Visit Cardiovascular Medicine [facility] [address] [place] [address] 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] Cardiovascular Medicine [facility] Comment on above: 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] Start: 02-29-2024 End: 02-29-2024 Patient encounter procedure 02/29/2024 2:30 PM EDT Appointment Cardiology Lab [address] [place] [address] ECG COMPLETE, 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] Cardiology Lab Comment on above: ECG COMPLETE, 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] Start: 02-28-2024 End: 05-29-2024 [id number] [Mass/volume] in Serum or Plasma B2 MICROGLOBULIN Lab Routine Monoclonal paraproteinemia Expected: 02/28/2024 (Approximate), Expires: 05/29/2024 [facility] Comment on above: Expected: 02/28/2024 (Approximate), Expi res: 05/29/2024 Start: 02-28-2024 End: 05-29-2024 Calcium.ionized [Moles/volume] in Blood CALCIUM, IONIZED Lab Routine Monoclonal paraproteinemia Expected: 02/28/2024 (Approximate), Expires: 05/29/2024 [facility] Comment on above: Expected: 02/28/2024 (Approximate), Expi res: 05/29/2024 Start: 02-28-2024 End: 05-29-2024 CBC W Auto Differential panel - Blood [facility] Comment on above: Expected: 02/28/2024 (Approximate), Expi res: 05/29/2024 Ordered: 02/28/2024 Start: 02-28-2024 End: 05-29-2024 Comprehensive metabolic 2000 panel - Serum or Plasma COMPREHENSIVE METABOLIC PANEL Lab Routine Monoclonal paraproteinemia Expected: 02/28/2024 (Approximate), Expires: 05/29/2024 [facility] Comment on above: Expected: 02/28/2024 (Approximate), Expi res: 05/29/2024 Start: 02-28-2024 End: 02-09-2025 Echocardiography ECHO Cardiology CARIE Monoclonal paraproteinemia Expected: 02/28/2024, Expires: 02/09/2025 [facility] Work Phone: Comment on above: Expected: 02/28/2024, Expires: Start: 02-28-2024 End: 05-29-2024 HIGH SENSITIVITY TROPONIN T HIGH SENSITIVITY TROPONIN T Lab Routine Monoclonal paraproteinemia Expected: 02/28/2024 (Approximate), Expires: 05/29/2024 [facility] Comment on above: Expected: 02/28/2024 (Approximate), Expi res: 05/29/2024 Start: 02-28-2024 End: 05-29-2024 Lactate dehydrogenase [Enzymatic activity/volume] in Serum or Plasma LACTATE DEHYDROGENASE Lab Routine Monoclonal paraproteinemia Expected: 02/28/2024 (Approximate), Expires: 05/29/2024 [facility] Comment on above: Expected: 02/28/2024 (Approximate), Expi res: 05/29/2024 Start: 02-28-2024 End: 05-29-2024 MONOCLONAL PROT 24 UR W/INTERP MONOCLONAL PROT 24 UR W/INTERP Lab Routine Monoclonal paraproteinemia Expected: 02/28/2024 (Approximate), Expires: 05/29/2024 [facility] Comment on above: Expected: 02/28/2024 (Approximate), Expi res: 05/29/2024 Start: 02-28-2024 End: 05-29-2024 MONOCLONAL PROTEIN, SERUM (BLOOD) MONOCLONAL PROTEIN, SERUM (BLOOD) Lab Routine Monoclonal paraproteinemia Expected: 02/28/2024 (Approximate), Expires: 05/29/2024 [facility] Comment on above: Expected: 02/28/2024 (Approximate), Expi res: 05/29/2024 Start: 02-28-2024 End: 05-29-2024 Natriuretic peptide.B prohormone N-Terminal [Mass/volume] in Serum or Plasma NT PRO BNP Lab Routine Monoclonal paraproteinemia Expected: 02/28/2024 (Approximate), Expires: 05/29/2024 [facility] Comment on above: Expected: 02/28/2024 (Approximate), Expi res: 05/29/2024 Start: 02-28-2024 End: 05-29-2024 Phosphate [Mass/volume] in Serum or Plasma PHOSPHORUS INORGANIC Lab Routine Monoclonal paraproteinemia Expected: 02/28/2024 (Approximate), Expires: 05/29/2024 [facility] Comment on above: Expected: 02/28/2024 (Approximate), Expi res: 05/29/2024 Start: 02-28-2024 End: 05-29-2024 PROT ELEC UR 24HR W/M SPIKE AND INTERP PROT ELEC UR 24HR W/M SPIKE AND INTERP Lab Routine Monoclonal paraproteinemia Expected: 02/28/2024 (Approximate), Expires: 05/29/2024 [facility] Comment on above: Expected: 02/28/2024 (Approximate), Expi res: 05/29/2024 Start: 02-28-2024 End: 05-29-2024 PROTEIN ELECTROPHORESIS SERUM W/INTERP PROTEIN ELECTROPHORESIS SERUM W/INTERP Lab Routine Monoclonal paraproteinemia Expected: 02/28/2024 (Approximate), Expires: 05/29/2024 [facility] Comment on above: Expected: 02/28/2024 (Approximate), Expi res: 05/29/2024 Start: 02-28-2024 End: 05-29-2024 Urate [Mass/volume] in Serum or Plasma URIC ACID Lab Routine Monoclonal paraproteinemia Expected: 02/28/2024 (Approximate), Expires: 05/29/2024 [facility] Comment on above: Expected: 02/28/2024 (Approximate), Expi res: 05/29/2024 Start: 02-28-2024 End: 02-28-2024 ambulatory Hematology/Oncology Comment on above: [D47.2] BONE MARROW ASPIRATE & BIOPSY Start: 02-24-2024 End: 02-24-2024 Patient encounter procedure 02/24/2024 1:00 PM EDT Office Visit Neurology Pain [address] [place] [address] Jerry Gudino PA-C [address] [place], [place] [phone] Chronic pain syndrome [G89.4] Neurology Pain Comment on above: Chronic pain syndrome [G89.4] Start: 02-17-2024 End: 02-17-2024 Follow-up encounter 02/17/2024 2:30 PM EDT [facility] Neurology [address] [place] [phone] Katelyn Hamilton APRN.DISTRICT RESOURCE OFFICER [address] [place] [address] Follow up needs sleep study Neurology Comment on above: Follow up needs sleep study Start: 02-13-2024 End: 02-13-2024 Patient encounter procedure 02/13/2024 1:00 PM EDT Office Visit Family Practice [address] [facility] [address] [place], [place] [phone] Edinson Zarate MD [address] [facility] [address] [place], [place] [address] Wellness Exam [facility] Comment on above: Wellness Exam Start: 02-13-2024 End: 02-13-2024 ambulatory 02/13/2024 8:30 AM EDT Results Only [facility] [address] [facility] [place] [address] [facility] Start: 02-10-2024 End: 05-11-2024 CBC W Auto Differential panel - Blood COMPLETE BLOOD COUNT AND DIFFERENTIAL Lab Routine Monoclonal paraproteinemia Expected: 02/10/2024, Expires: 05/11/2024 [facility] Comment on above: Expected: 02/10/2024, Expires: Start: 02-06-2024 End: 02-06-2024 Patient encounter procedure 02/06/2024 1:30 PM EDT Office Visit Orthopaedics [address] [facility] [place] [address] Aruna Menard PA-C [address] [place] [address] Post op revision left CTR Orthopaedics Comment on above: Post op revision left CTR Start: 02-01-2024 End: 02-01-2024 ambulatory 02/01/2024 8:45 AM EDT Results Only [facility] [address] [facility] [place] [address] [facility] Start: 01-12-2024 ANNUAL PCP TEAM CHRONIC DISEASE VISIT ANNUAL PCP TEAM CHRONIC DISEASE VISIT [facility] Start: 01-12-2024 COVID-19 VACCINE (5 - Booster for Moderna series) COVID-19 VACCINE (5 - Booster for Moderna series) [facility] Comment on above: Postponed from 06/30/2022 (Declined at t his time) Start: 01-12-2024 COVID-19 VACCINE (5 - Moderna series) COVID-19 VACCINE (5 - Moderna series) [facility] Comment on above: Postponed from 06/30/2022 (Declined at t his time) Start: 10-03-2023 Advance Directive Discussion Advance Directive Discussion [facility] Start: 09-03-2023 ANNUAL PCP TEAM CHRONIC DISEASE VISIT ANNUAL PCP TEAM CHRONIC DISEASE VISIT [facility] Start: 08-31-2023 ANNUAL PCP TEAM CHRONIC DISEASE VISIT ANNUAL PCP TEAM CHRONIC DISEASE VISIT [facility] Start: 08-06-2023 BP CONTROLLED (<130/80) BP CONTROLLED (<130/80) [facility] Start: 07-01-2023 ANNUAL PCP TEAM CHRONIC DISEASE VISIT ANNUAL PCP TEAM CHRONIC DISEASE VISIT [facility] Start: 06-03-2023 Covid-19 Vaccine () Covid-19 Vaccine () [facility] Start: 06-03-2023 Influenza vaccination [facility] Start: 05-20-2023 ANNUAL PCP TEAM CHRONIC DISEASE VISIT ANNUAL PCP TEAM CHRONIC DISEASE VISIT [facility] Start: 05-20-2023 BP CONTROLLED (<130/80) BP CONTROLLED (<130/80) [facility] Start: 04-19-2023 ANNUAL PCP TEAM CHRONIC DISEASE VISIT ANNUAL PCP TEAM CHRONIC DISEASE VISIT [facility] Start: 04-19-2023 SHINGRIX VACCINE (1 of 2) SHINGRIX VACCINE (1 of 2) [facility] Comment on above: Postponed from 09/28/2009 (Declined at t his time) Start: 01-18-2023 End: 03-20-2023 Hemoglobin A1c in Blood HGB A1C Lab Routine Prediabetes Expected: 01/18/2023, Expires: 03/20/2023 [facility] Work Phone: Comment on above: Expected: 01/18/2023, Expires: 3 Start: 01-18-2023 End: 03-20-2023 Lipid 1996 panel - Serum or Plasma LIPID PANEL BASIC Lab Routine HLD (hyperlipidemia) Expected: 01/18/2023, Expires: 03/20/2023 [facility] Work Phone: Comment on above: Expected: 01/18/2023, Expires: 3 Start: 01-14-2023 ANNUAL PCP TEAM CHRONIC DISEASE VISIT ANNUAL PCP TEAM CHRONIC DISEASE VISIT [facility] Start: 10-03-2022 ADVANCE DIRECTIVE DISCUSSION ADVANCE DIRECTIVE DISCUSSION [facility] Start: 09-04-2022 COVID-19 VACCINE (5 - Booster for Moderna series) COVID-19 VACCINE (5 - Booster for Moderna series) [facility] Start: 08-03-2022 End: 10-03-2022 CBC W Auto Differential panel - Blood CBC + DIFF Lab Routine Gammopathy Sore of lip Expected: 08/03/2022, Expires: 10/03/2022 [facility] Work Phone: Comment on above: Expected: 08/03/2022, Expires: 3 Start: 08-03-2022 End: 10-03-2022 Comprehensive metabolic 2000 panel - Serum or Plasma COMP METABOLIC PANEL Lab Routine Gammopathy Sore of lip Expected: 08/03/2022, Expires: 10/03/2022 [facility] Work Phone: Comment on above: Expected: 08/03/2022, Expires: 3 Start: 08-03-2022 End: 10-03-2022 MONOCLONAL PROTEIN, SERUM (BLOOD) MONOCLONAL PROTEIN, SERUM (BLOOD) Lab Routine Gammopathy Sore of lip Expected: 08/03/2022, Expires: 10/03/2022 [facility] Work Phone: Comment on above: Expected: 08/03/2022, Expires: 3 Start: 08-03-2022 End: 10-03-2022 PROTEIN ELECTROPHORESIS SERUM W/INTERP PROTEIN ELECTROPHORESIS SERUM W/INTERP Lab Routine Gammopathy Sore of lip Expected: 08/03/2022, Expires: 10/03/2022 [facility] Work Phone: Comment on above: Expected: 08/03/2022, Expires: 3 Start: 07-23-2022 SHINGRIX VACCINE (2 of 2) SHINGRIX VACCINE (2 of 2) [facility] Start: 06-30-2022 COVID-19 VACCINE (5 - Booster for Moderna series) COVID-19 VACCINE (5 - Booster for Moderna series) [facility] Start: 06-04-2022 End: 06-27-2023 CT WHOLE BODY SKULL TO KNEE WO IVCON CT WHOLE BODY SKULL TO KNEE WO IVCON Radiology Routine 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) Expected: 06/04/2022, Expires: 06/27/2023 [facility] Work Phone: Comment on above: Expected: 06/04/2022, Expires: 3 Start: 06-03-2022 COVID-19 VACCINE (4 - Booster for Moderna series) COVID-19 VACCINE (4 - Booster for Moderna series) [facility] Comment on above: Postponed from 11/05/2021 (Declined at t his time) Start: 06-03-2022 Influenza vaccination INFLUENZA (#1) [facility] Start: 05-28-2022 End: 07-28-2022 Pyridoxine [Mass/volume] in Serum or Plasma VITAMIN B6/PYRIDOXIN Lab Routine Gammopathy Sore of lip Expected: 05/28/2022, Expires: 07/28/2022 [facility] Work Phone: Comment on above: Expected: 05/28/2022, Expires: 2 Start: 05-28-2022 End: 07-28-2022 Riboflavin [Moles/volume] in Serum or Plasma VITAMIN B2/RIBOFLAV Lab Routine Gammopathy Sore of lip Expected: 05/28/2022, Expires: 07/28/2022 [facility] Work Phone: Comment on above: Expected: 05/28/2022, Expires: 2 Start: 03-09-2022 End: 05-09-2022 DNA double strand Ab [Units/volume] in Serum by Immunoassay [facility] Work Phone: Comment on above: Expected: 03/09/2022, Expires: 2 Start: 03-09-2022 End: 05-09-[address] [facility] Work Phone: Comment on above: Expected: 03/09/2022, Expires: 2 Start: 02-25-2022 End: 04-27-2022 MONOCLONAL PROT 24 UR W/INTERP [facility] Work Phone: Comment on above: Expected: 02/25/2022, Expires: 2 Start: 02-25-2022 End: 04-27-2022 PROT ELEC UR 24HR W/M SPIKE AND INTERP [facility] Work Phone: Comment on above: Expected: 02/25/2022, Expires: 2 Start: 01-12-2022 End: 03-14-[address] LUPUS ANTICO[address] Lab Routine SLE (systemic lupus erythematosus related syndrome) ([facility]) Expected: 01/12/2022, Expires: 03/14/2022 [facility] Work Phone: Comment on above: Expected: 01/12/2022, Expires: 2 Start: 01-12-2022 End: 03-14-2022 PROT ELECT SERUM WITH CRISTA AND INTERP PROT ELECT SERUM WITH CRISTA AND INTERP Lab Routine SLE (systemic lupus erythematosus related syndrome) ([facility]) Expected: 01/12/2022, Expires: 03/14/2022 [facility] Work Phone: Comment on above: Expected: 01/12/2022, Expires: 2 Start: 11-05-2021 COVID-19 VACCINE (4 - Booster for Moderna series) COVID-19 VACCINE (4 - Booster for Moderna series) [facility] Start: 10-03-2021 ADVANCE DIRECTIVE DISCUSSION ADVANCE DIRECTIVE DISCUSSION [facility] Start: 09-28-2009 SHINGRIX VACCINE (1 of 2) SHINGRIX VACCINE (1 of 2) [facility] Start: 09-28-2009 SHINGRIX VACCINE (2 of 3) SHINGRIX VACCINE (2 of 3) [facility] Start: 2008 RSV Vaccine (1 - 1-dose 60+ series) RSV Vaccine (1 - 1-dose 60+ series) [facility] Start: 1993 COLOGUARD (FIT-DNA) COLOGUARD (FIT-DNA) [facility] Start: [address] COLONOGRAPHY [facility] Start: 1993 FECAL OCCULT BLOOD FECAL OCCULT BLOOD [facility] Start: 1993 Screening for malignant neoplasm of colon [facility] Start: 1993 SIGMOIDOSCOPY SIGMOIDOSCOPY [facility] Start: 1966 BP CONTROLLED (<130/80) BP CONTROLLED (<130/80) [facility] in Start: 1954 PNEUMOCOCCAL: 65+ (1 - PCV) PNEUMOCOCCAL: 65+ (1 - PCV) [facility] Bacteria identified in Wound by Culture ABSCESS AND WOUND CULTURE WITH GRAM STAIN Microbiology Routine Paronychia of finger of right hand 08/22/2023 3:02 PM EST [facility] Work Phone: BONE MARROW ANALYSIS BONE MARROW ANALYSIS Lab Routine Monoclonal paraproteinemia 02/28/2024 9:41 AM EDT [facility] BONE MARROW CHROMOSO ME ANAL BONE MARROW CHROMOSOME ANAL Lab Routine Monoclonal paraproteinemia 02/28/2024 9:41 AM EDT [facility] End: 09-06-2023 Ct thorax w/o contrast material CT CHEST WO IVCON Radiology Routine Interstitial pulmonary disease (HCC) Abnormal chest x-ray 1 Occurrences starting 08/07/2022 until 09/06/2023 [facility] Work Phone: Comment on above: 1 Occurrences starting 08/07/2022 until 09/06/2023 End: 08-11-2023 Ct upper extremity w/contrast material CT ELBOW W IVCON RT Radiology Routine Right elbow pain Localized swelling, mass, or lump of right upper extremity 1 Occurrences starting 07/12/2022 until 08/11/2023 [facility] Work Phone: Comment on above: 1 Occurrences starting 07/12/2022 until 08/11/2023 DNA EXTRACTION BONE MARROW (BUFFY COAT) DNA EXTRACTION BONE MARROW (BUFFY COAT) Lab Routine Monoclonal paraproteinemia 02/28/2024 9:41 AM EDT [facility] End: 06-21-2025 ECG COMPLETE ECG COMPLETE ECG Routine Amyloidosis, unspecified type (HCC) 1 Occurrences starting 06/21/2024 until 06/21/2025 [facility] Comment on above: 1 Occurrences starting 06/21/2024 until 06/21/2025 End: 03-15-2026 ECG COMPLETE ECG COMPLETE ECG Routine Syncope, unspecified syncope type 1 Occurrences starting 03/15/2025 until 03/15/2026 [facility] Work Phone: Comment on above: 1 Occurrences starting 03/15/2025 until 03/15/2026 End: 06-21-2025 Echocardiography ECHO Cardiology Routine Amyloidosis, unspecified type (HCC) 1 Occurrences starting 06/21/2024 until 06/21/2025 [facility] Comment on above: 1 Occurrences starting 06/21/2024 until 06/21/2025 End: 08-02-2024 EMG(NEURO/NI) EMG(NEURO/NI) EMG Routine Bilateral carpal tunnel syndrome 1 Occurrences starting 08/02/2023 until 08/02/2024 [facility] Work Phone: Comment on above: 1 Occurrences starting 08/02/2023 until 08/02/2024 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 Lab Routine Monoclonal paraproteinemia 02/28/2024 9:41 AM EDT [facility] FLOW CYTOMETRY FOR LEUKEMIA/LYMPHOMA (FCLL) REFLEX FLOW CYTOMETRY FOR LEUKEMIA/LYMPHOMA (FCLL) REFLEX Lab Routine Monoclonal paraproteinemia 02/28/2024 9:41 AM T [facility] End: 05-11-2025 LUNG DIFFUSION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 Patient states that the ED did not find anything abnormal. Patient wanted to thank Dr. Seo for his excellent care. [facility] 12-03-2024 Miscellaneous Notes Patient called this RN to send an update to Dr. Seo. Patient wanted to let Dr. Seo know that he went to the ED and was evaluated. Patient states that the ED did not find anything abnormal. Patient wanted to thank Dr. Seo for his excellent care. documented in this encounter [facility] 12-03-2024 Telephone encounter Note The following approved medication requests have been transmitted electronically. Requested Prescriptions Signed Prescriptions Disp Refills HYDROcodone-acetaminophen (NORCO) 5-325 mg per tablet 90 tablet 0 Sig: Take 1 tablet by mouth every 8 hours as needed for pain for up to 30 days. Authorizing Provider: EDINSON ZARATE MD [facility] 12-03-2024 Miscellaneous Notes The following approved medication requests have been transmitted electronically. Requested Prescriptions Signed Prescriptions Disp Refills HYDROcodone-acetaminophen (NORCO) 5-325 mg per tablet 90 tablet 0 Sig: Take 1 tablet by mouth every 8 hours as needed for pain for up to 30 days. Authorizing Provider: EDINSON ZARATE MD Pharmacy verified in [email or web address]. Patient has been identified by name and date of : Yes Patient aware RX will be sent to pharmacy. No need to notify patient. Patient phones for refill(s): Requested Prescriptions Pending Prescriptions Disp Refills HYDROcodone-acetaminophen (NORCO) 5-325 mg per tablet 90 tablet 0 Sig: Take 1 tablet by mouth every 8 hours as needed for pain for up to 30 days. Date of last office visit : 08/07/2024 Date of next office visit : 03/05/2025 Last 2 Encounter Wt Readings: Date: Wt: 10/04/2024 127.9 kg (282 lb) 08/08/2024 127.3 kg (280 lb 11.2 oz) Not applicable Please advise. Lynsey Townsend MA documented in this encounter [facility] 12-03-2024 Telephone encounter Note Patient and spouse returned RN's phone call. Patient states he no longer is having symptoms today. Symptoms were present last night. Patient encouraged to still be evaluated at ED. Patient asked to keep Dr. Seo updated. [facility] 12-03-2024 Miscellaneous Notes Patient and spouse returned RN's phone call. Patient states he no longer is having symptoms today. Symptoms were present last night. Patient encouraged to still be evaluated at ED. Patient asked to keep Dr. Seo updated. Called to speak with patient on the phone. Patient did not answer. RN left voicemail asking patient to call RN back, direct phone number given. Patient is active on [employer], will also send message. Please call patient I got his MC messages, but am less certain these symptoms he is describing would be due to the azathioprine. Because of the vision, dizziness and trouble walking, I would recommend urgent medical evaluation in the ED today to see what is going on. He can lower the azathioprine to 2 pills a day, but complete the other evaluation. Pat Seo MD Patient reports new symptoms Blurred vision, dizziness and difficulty walking. He wonders whether due to increases AZA Would recommend urgent evaluation today. Likely in ED. Pat Seo MD documented in this encounter [facility] 12-03-2024 Telephone encounter Note Called to speak with patient on the phone. Patient did not answer. RN left voicemail asking patient to call RN back, direct phone number given. Patient is active on [employer], will also send message. [facility] 12-03-2024 Telephone encounter Note Pharmacy verified in [email or web address]. Patient has been identified by name and date of : Yes Patient aware RX will be sent to pharmacy. No need to notify patient. Patient phones for refill(s): Requested Prescriptions Pending Prescriptions Disp Refills HYDROcodone-acetaminophen (NORCO) 5-325 mg per tablet 90 tablet 0 Sig: Take 1 tablet by mouth every 8 hours as needed for pain for up to 30 days. Date of last office visit : 08/07/2024 Date of next office visit : 03/05/2025 Last 2 Encounter Wt Readings: Date: Wt: 10/04/2024 127.9 kg (282 lb) 08/08/2024 127.3 kg (280 lb 11.2 oz) Not applicable Please advise. Lynsey Townsend MA [facility] 12-03-2024 Telephone encounter Note Please call patient I got his MC messages, but am less certain these symptoms he is describing would be due to the azathioprine. Because of the vision, dizziness and trouble walking, I would recommend urgent medical evaluation in the ED today to see what is going on. He can lower the azathioprine to 2 pills a day, but complete the other evaluation. Pat Seo MD [facility] 12-03-2024 Telephone encounter Note Patient reports new symptoms Blurred vision, dizziness and difficulty walking. He wonders whether due to increases AZA Would recommend urgent evaluation today. Likely in ED. Pat Seo MD [facility] 11-28-2024 Telephone encounter Note The following approved medication requests have been transmitted electronically. Requested Prescriptions Signed Prescriptions Disp Refills azaTHIOprine (IMURAN) 50 mg tablet 270 tablet 0 Sig: Take 3 tablets by mouth once daily. Authorizing Provider: PAT SEO MD [facility] 11-28-2024 Miscellaneous Notes The following approved medication requests have been transmitted electronically. Requested Prescriptions Signed Prescriptions Disp Refills azaTHIOprine (IMURAN) 50 mg tablet 270 tablet 0 Sig: Take 3 tablets by mouth once daily. Authorizing Provider: PAT SEO MD documented in this encounter [facility] 11-20-2024 Telephone encounter Note New labs noted LFT nl WBC 5.8 HGB 12.9 PLT 250 He is on AZA 100 mg a day now MC message to patient to check on him. Pat Seo MD [facility] 11-20-2024 Miscellaneous Notes New labs noted LFT nl WBC 5.8 HGB 12.9 PLT 250 He is on AZA 100 mg a day now MC message to patient to check on him. Pat Seo MD Received lab results from [facility] 11/16/24. Scanned in for review documented in this encounter [facility] 11-19-2024 Telephone encounter Note Received lab results from [facility] 11/16/24. Scanned in for review [facility] 11-08-2024 Telephone encounter Note controlled drugs are not supposed to be sent Out of state . Will fill one x but not ongoing. Requested Prescriptions Signed Prescriptions Disp Refills HYDROcodone-acetaminophen (NORCO) 5-325 mg per tablet 90 tablet 0 Sig: Take 1 tablet by mouth every 8 hours as needed for pain for up to 30 days. Authorizing Provider: EDINSON ZARATE Pharmacy Information Pharmacy Address Telephone [facility]/pharmacy #[id number] [facility] [place] [id number] Edinson Zarate MD [facility] 11-08-2024 Miscellaneous Notes controlled drugs are not supposed to be sent Out of state . Will fill one x but not ongoing. Requested Prescriptions Signed Prescriptions Disp Refills HYDROcodone-acetaminophen (NORCO) 5-325 mg per tablet 90 tablet 0 Sig: Take 1 tablet by mouth every 8 hours as needed for pain for up to 30 days. Authorizing Provider: EDINSON ZARATE Pharmacy Information Pharmacy Address Telephone [facility]/pharmacy #[id number] [address] [place] [address] Edinson Zarate MD Patient requesting medication be sent to [place]. documented in this encounter [facility] 11-08-2024 Telephone encounter Note Patient requesting medication be sent to [place]. [facility] 11-07-2024 Telephone encounter Note The following approved medication requests have been transmitted electronically. Requested Prescriptions Signed Prescriptions Disp Refills meloxicam (MOBIC) 15 mg tablet 90 tablet 1 Sig: Take 1 tablet by mouth once daily. Authorizing Provider: EDINSON ZARATE pregabalin (LYRICA) 225 mg capsule 180 capsule 0 Sig: Take 1 capsule by mouth two times a day for 90 days. Authorizing Provider: EDINSON ZARATE MD [facility] 11-07-2024 Miscellaneous Notes The following approved medication requests have been transmitted electronically. Requested Prescriptions Signed Prescriptions Disp Refills meloxicam (MOBIC) 15 mg tablet 90 tablet 1 Sig: Take 1 tablet by mouth once daily. Authorizing Provider: EDINSON ZARATE pregabalin (LYRICA) 225 mg capsule 180 capsule 0 Sig: Take 1 capsule by mouth two times a day for 90 days. Authorizing Provider: EDINSON ZARATE MD Prescription Refill Information The patient has been identified by name and date of : Yes Caregiver verified no other encounters exist for this prescription request: Yes Caregiver confirmed with patient/requestor that no other refills are due, in the near future, with this provider at this time: Yes The last office visit in the department: 08/07/24 Does the patient have a future office visit with this provider/department: No Requested Prescriptions Pending Prescriptions Disp Refills meloxicam (MOBIC) 15 mg tablet 90 tablet 1 Sig: Take 1 tablet by mouth once daily. pregabalin (LYRICA) 225 mg capsule 180 capsule 0 Sig: Take 1 capsule by mouth two times a day for 90 days. Sienna Inman LPN November 07, 2024 2:14 PM documented in this encounter [facility] 11-07-2024 Telephone encounter Note Prescription Refill Information The patient has been identified by name and date of : Yes Caregiver verified no other encounters exist for this prescription request: Yes Caregiver confirmed with patient/requestor that no other refills are due, in the near future, with this provider at this time: Yes The last office visit in the department: 08/07/24 Does the patient have a future office visit with this provider/department: No Requested Prescriptions Pending Prescriptions Disp Refills meloxicam (MOBIC) 15 mg tablet 90 tablet 1 Sig: Take 1 tablet by mouth once daily. pregabalin (LYRICA) 225 mg capsule 180 capsule 0 Sig: Take 1 capsule by mouth two times a day for 90 days. Sienna Inman LPN November 07, 2024 2:14 PM [facility] 11-06-2024 Telephone encounter Note The following approved medication requests have been transmitted electronically. Requested Prescriptions Signed Prescriptions Disp Refills HYDROcodone-acetaminophen (NORCO) 5-325 mg per tablet 90 tablet 0 Sig: Take 1 tablet by mouth every 8 hours as needed for pain for up to 30 days. Authorizing Provider: EDINSON ZARATE MD [facility] 11-06-2024 Miscellaneous Notes The following approved medication requests have been transmitted electronically. Requested Prescriptions Signed Prescriptions Disp Refills HYDROcodone-acetaminophen (NORCO) 5-325 mg per tablet 90 tablet 0 Sig: Take 1 tablet by mouth every 8 hours as needed for pain for up to 30 days. Authorizing Provider: EDINSON ZARATE MD Pharmacy verified in [email or web address]. Patient has been identified by name and date of : Yes Patient aware RX will be sent to pharmacy. No need to notify patient. Patient phones for refill(s): Requested Prescriptions Pending Prescriptions Disp Refills HYDROcodone-acetaminophen (NORCO) 5-325 mg per tablet 90 tablet 0 Sig: Take 1 tablet by mouth every 8 hours as needed for pain for up to 30 days. Date of last office visit : 08/07/2024 Date of next office visit : 03/05/2025 Last 2 Encounter Wt Readings: Date: Wt: 10/04/2024 127.9 kg (282 lb) 08/08/2024 127.3 kg (280 lb 11.2 oz) Not applicable Please advise. Lynsye Townsend MA documented in this encounter [facility] 11-06-2024 Telephone encounter Note Pharmacy verified in [email or web address]. Patient has been identified by name and date of : Yes Patient aware RX will be sent to pharmacy. No need to notify patient. Patient phones for refill(s): Requested Prescriptions Pending Prescriptions Disp Refills HYDROcodone-acetaminophen (NORCO) 5-325 mg per tablet 90 tablet 0 Sig: Take 1 tablet by mouth every 8 hours as needed for pain for up to 30 days. Date of last office visit : 08/07/2024 Date of next office visit : 03/05/2025 Last 2 Encounter Wt Readings: Date: Wt: 10/04/2024 127.9 kg (282 lb) 08/08/2024 127.3 kg (280 lb 11.2 oz) Not applicable Please advise. Lynsey Townsend MA [facility] 10-16-2024 Note HNO ID: [id number] Author: MARE GOMEZ MA Service: ? Author Type: Supervisor Rolling Room Type: Progress Notes Filed: 10/16/2024 14:52 Note Text: POPULATION HEALTH NAVIGATION OUTREACH Action/FYI Patient responded via [employer], scheduled 03/2025 with PCP. Updated upcoming OV notes Please address due care gaps and HCC gap closure BP to be addressed at upcoming wellness. Reason for Outreach Returned Call/MyChart Patient Contacted: Spoke to patient/parent/or legal guardian Patient identified by name and date of : Yes Returned call/MyChart actions taken: Patient scheduled/pended orders: Medicare Annual Wellness Visit Controlling Blood Pressure 03/05/[address] [facility] [place] with EDINSON ZARATE - Annual Wellness - Chronic disease follow up, Please address due care gaps and HCC gap closure Navigation Signature: Mare Gomez MA October 16, 2024 2:51 PM [facility] 10-16-2024 History of Present illness Narrative POPULATION HEALTH NAVIGATION OUTREACH Action/FYI Patient responded via [employer], scheduled 03/2025 with PCP. Updated upcoming OV notes Please address due care gaps and HCC gap closure BP to be addressed at upcoming wellness. Reason for Outreach Returned Call/MyChart Patient Contacted: Spoke to patient/parent/or legal guardian Patient identified by name and date of : Yes Returned call/MyChart actions taken: Patient scheduled/pended orders: Medicare Annual Wellness Visit Controlling Blood Pressure 03/05/[address] [facility] [place] with EDINSON ZARATE - Annual Wellness - Chronic disease follow up, Please address due care gaps and HCC gap closure Navigation Signature: Mare Gomez MA October 16, 2024 2:51 PM POPULATION HEALTH NAVIGATION OUTREACH Action/FYI Patient is on [employer] list for below and needs appointment to address: BP Controlled (<130/80) Covid-19 Vaccine() Advance Directive Discussion Hemoglobin A1C (%) Date Value 02/06/2024 5.8 02/07/2021 5.9 Hemoglobin A1C (POCT) (%) Date Value 05/06/2021 5.8 Patient due for: Medicare Annual Wellness Visit - RTO: 6 months or sooner from 08/07/24 OV Controlling Blood Pressure MyChart Active: Yes Left message for patient to call back. Sent mychart message. HCC: Yes Reason for Outreach Care Gap/HCC or Scheduling Wellness Visits Care Gaps due: Medicare Annual Wellness Visit Controlling Blood Pressure Patient Contacted: Unable or unnecessary to reach patient: Left message MyChart message sent HCC related Navigation Signature: Mare Gomez MA October 16, 2024 12:20 PM documented in this encounter [facility] 10-16-2024 Note HNO ID: [id number] Author: MARE GOMEZ MA Service: ? Author Type: Supervisor Rolling Room Type: Progress Notes Filed: 10/16/2024 13:20 Note Text: POPULATION HEALTH NAVIGATION OUTREACH Action/FYI Patient is on [employer] list for below and needs appointment to address: BP Controlled (<130/80) Covid-19 Vaccine() Advance Directive Discussion Hemoglobin A1C (%) Date Value 02/06/2024 5.8 02/07/2021 5.9 Hemoglobin A1C (POCT) (%) Date Value 05/06/2021 5.8 Patient due for: Medicare Annual Wellness Visit - RTO: 6 months or sooner from 08/07/24 OV Controlling Blood Pressure MyChart Active: Yes Left message for patient to call back. Sent mychart message. HCC: Yes Reason for Outreach Care Gap/HCC or Scheduling Wellness Visits Care Gaps due: Medicare Annual Wellness Visit Controlling Blood Pressure Patient Contacted: Unable or unnecessary to reach patient: Left message MyChart message sent HCC related Navigation Signature: Mare Gomez MA October 16, 2024 12:20 PM [facility] 10-16-2024 Note Patient Outreach (NE TNAV) ---- MERAZAYDA FERMIN ([id number]) 1950 M Date Time Provider Department 10/16/24 MARE GOMEZ During your visit today, we recorded the following information about you: Mare Gomez MA 10/16/2024 1:20 PM Signed POPULATION HEALTH NAVIGATION OUTREACH Action/FYI Patient is on [employer] list for below and needs appointment to address: BP Controlled (<130/80) Covid-19 Vaccine() Advance Directive Discussion Hemoglobin A1C (%) Date Value 02/06/2024 5.8 02/07/2021 5.9 Hemoglobin A1C (POCT) (%) Date Value 05/06/2021 5.8 Patient due for: Medicare Annual Wellness Visit - RTO: 6 months or sooner from 08/07/24 OV Controlling Blood Pressure [employer] Active: Yes Left message for patient to call back. Sent [employer] message. HCC: Yes Reason for Outreach Care Gap/HCC or Scheduling Wellness Visits Care Gaps due: Medicare Annual Wellness Visit Controlling Blood Pressure Patient Contacted: Unable or unnecessary to reach patient: Left message [employer] message sent HCC related Navigation Signature: Mare Gomez MA October 16, 2024 12:20 PM Mare Gomez MA 10/16/2024 2:52 PM Signed POPULATION HEALTH NAVIGATION OUTREACH Action/FYI Patient responded via [employer], scheduled 03/2025 with PCP. Updated upcoming OV notes Please address due care gaps and HCC gap closure BP to be addressed at upcoming wellness. Reason for Outreach Returned Call/MyChart Patient Contacted: Spoke to patient/parent/or legal guardian Patient identified by name and date of : Yes Returned call/MyChart actions taken: Patient scheduled/pended orders: Medicare Annual Wellness Visit Controlling Blood Pressure 03/05/[address] [facility] [place] with EDINSON ZARATE - Annual Wellness - Chronic disease follow up, Please address due care gaps and HCC gap closure Navigation Signature: Mare Gomez MA October 16, 2024 2:51 PM Allergies As of Date: 10/16/2024 Noted Allergy Reaction ASPARTAME 03/06/2011 7 - Swelling Comments: Pt gets burning sensation under skin BETADINE (POVIDONE-IODINE) 04/09/2013 2 - Rash Comments: Blister CYMBALTA (DULOXETINE) 09/08/2023 14 - Other: See Comments Comments: Sweating LISINOPRIL 01/14/2022 3 - Cough Comments: Cough LOSARTAN 09/09/2021 3 - Cough NIACIN 01/18/2011 14 - Other: See Comments Comments: Niacin-Dermid Burning pain all over PENICILLINS 12/10/2003 2 - Rash SEASONAL ALLERGIES 09/05/2013 14 - Other: See Comments Comments: GRASS POLLEN-positive skin test 09-05-13 SUDAFED (PSEUDOEPHEDRINE HCL) 01/18/2011 14 - Other: See Comments Comments: Difficulty swallowing, swelling of tongue AND lips TAMIFLU (OSELTAMIVIR PHOSPHATE) 02/11/2014 12 - Shortness of Breath Comments: SOB, arm pain TRAZODONE 03/05/2020 12 - Shortness of Breath ULTRAM (TRAMADOL) 03/21/2013 Comments: Per patient contraindication due to wellbutrin Date Reviewed: 10/04/2024 Reviewed by: Daniella Zarco - Fully Assessed Reason for Visit: Population Health Navigation Outreach [[id number]] [facility] Prescriptions as of 10/16/2024 - dextromethorphan-guaiFENesin (MUCINEX-DM) 60-1,200 mg tablet Take 1 tablet by mouth every 12 hours. - azaTHIOprine (IMURAN) 50 mg tablet Take 1 tablet by mouth once daily. - HYDROcodone-acetaminophen (NORCO) 5-325 mg per tablet Take 1 tablet by mouth every 8 hours as needed for pain for up to 30 days. - tamsulosin (FLOMAX) 0.4 mg Take 1 capsule by mouth daily at bedtime. - azelastine 0.1% nasal spray Use 1 [place] in each nostril two times a day. - amLODIPine (NORVASC) 5 mg tablet Take 1 tablet by mouth once daily. - metoprolol succinate ER (TOPROL XL) 25 mg 24 hr tablet Take 2 tablets by mouth once daily. - fluticasone-salmeterol (ADVAIR DISKUS) 250-50 mcg/dose inhaler Inhale 1 Puff as instructed two times a day. - albuterol HFA (VENTOLIN HFA) 90 mcg/actuation inhaler Inhale 2 Puffs as instructed every 4 hours as needed. - predniSONE (DELTASONE) 10 mg tablet Take 1 tablet by mouth two times a day. - hydrOXYchloroQUINE (PLAQUENIL) 200 mg tablet Take 1 tablet by mouth two times a day. - pregabalin (LYRICA) 225 mg capsule Take 1 capsule by mouth two times a day for 90 days. - pseudoephedrine HCl (PSEUDOEPHEDRINE NASAL DECON ORAL) Take by mouth. - guaiFENesin (MUCINEX) 1,200 mg Ta12 Take 1 tablet by mouth two times a day. - metFORMIN ER (GLUCOPHAGE XR) 500 mg 24 hr tablet Take one tablet daily with breakfast for 7 days, then increase to one tablet twice daily with breakfast and dinner. - meloxicam (MOBIC) 15 mg tablet take 1 tablet once daily - fexofenadine (ANÍBAL) 180 mg tablet Take 1 tablet by mouth once daily. - CPAP/BIPAP/OTHER Replacement autobipap / with PS of 5cmH2O DME [employer] - fluticasone (FLONASE) 50 mcg/actuation nasal s (more content not included)... [facility] 10-07-2024 Telephone encounter Note Due to his hypersomnolence in face of CPAP, reviewed his case with Sleep Team by EMR They will see him back. Pat Seo MD [facility] 10-07-2024 Miscellaneous Notes Due to his hypersomnolence in face of CPAP, reviewed his case with Sleep Team by EMR They will see him back. Pat Seo MD documented in this encounter [facility] 10-04-2024 Instructions Pat Soe MD - 10/04/2024 11:44 AM EST Labs today 1st floor Desk A15 I have messaged the Sleep team about your sleepiness I have messaged again the Hematology team about this new medication. I would like to consider the new medication azathioprine I will give you information to read on this. documented in this encounter [facility] 10-04-2024 Note HNO ID: [id number] Author: PAT SEO MD Service: ? Author Type: Physician Type: Progress Notes Filed: 10/20/2024 14:36 Note Text: RHEUMATOLOGY FOLLOW UP NOTE PROVIDER: Pat Seo MD DATE OF VISIT: 10/04/2024 PATIENT NAME: Zayda LUTHER CHIEF COMPLAINT / REASON FOR VISIT: SLE and joint pains SUBJECTIVE / INTERIM HISTORY: Patient returns for follow-up. Last seen here 2 mos ago. Since last visit: Old problems: 1. SLE Trial of prednisone repeated with some benefits Off now Still on HCQ and NSAIDs Considering other meds 2. Neuropathy 3. Gammopathy 4. Amyloid 5. (+) LAC Repeat neg No history of thrombosis New problems: 1. Notes increased hypersomnulence He sees Sleep Med Is on CPAP REVIEW OF SYSTEMS: Review of Systems CONSTITUTION: Negative for: Fever and Recent weight change HEENT: Positive for: Mouth sores, Trouble swallowing and Dry mouth Negative for: Nosebleeds RESPIRATORY: Positive for: Cough and Shortness of breath Negative for: Pain with breathing and Coughing up blood GASTROINTESTINAL: Positive for: Diarrhea Negative for: Melena, Heartburn and Abdominal pain MUSCULOSKELETAL: Positive for: Arthralgias, Myalgias, Muscle weakness and Morning Joint Stiffness Negative for: Joint swelling NEUROLOGICAL: Positive for: Numbness Negative for: Headaches and Memory loss SKIN: Positive for: Nail changes Negative for: Rash, Skin changes and Hair loss EYES: Positive for: Visual disturbance Negative for: Eye pain, Eye redness and Eye dryness CARDIOVASCULAR: Negative for: Chest pain and Leg swelling GENITOURINARY: Negative for: Dysuria and Hematuria HEMATOLOGIC/LYMPHATIC: Negative for: Swollen glands PAST MEDICAL AND SURGICAL HISTORY PAST MEDICAL HISTORY Diagnosis Date Anxiety Dr. Belle Arthritis of both hips Benign neoplasm of colon Bipolar disorder (HCC) Dr. Belle DDD (degenerative disc disease), lumbar Depressive disorder, not elsewhere classified Diverticulosis of colon (without mention of hemorrhage) HLD (hyperlipidemia) 06/13/2017 Hypertension Internal hemorrhoids without mention of complication Monoclonal paraproteinemia Morbid obesity (HCC) MARCELINA (obstructive sleep apnea) 1998 BiPAP Peripheral neuropathy Prediabetes 09/11/2019 Seasonal allergies Shoulder arthritis Systemic lupus erythematosus (HCC) 10/2021 PAST SURGICAL HISTORY Procedure Laterality Date ARTHROPLASTY TOTAL SHOULDER 04/03/2013 Right shoulder replacement ARTHRP ACETBLR/PROX FEM PROSTC AGRFT/ALGRFT 1992 Hip replacement, total RIGHT BACK SURGERY HX COLONOSCOPY FLX DX W/COLLJ SPEC WHEN PFRMD 08/11/1992 Colonoscopy COLONOSCOPY FLX DX W/COLLJ SPEC WHEN PFRMD 09/01/2018 Colonoscopy COLSC FLX W/RMVL OF TUMOR POLYP LESION SNARE TQ 06/26/2008 ESOPHAGOGASTRODUODENOSCOPY TRANSORAL DIAGNOSTIC 05/08/2020 EGD JOINT REPLACEMENT HX PAST SURGICAL HISTORY OF 1995 L5-S1 spinal fusion with pins, rods, and bolts PAST SURGICAL HISTORY OF 03/2011 Right hip revision PAST SURGICAL HISTORY OF 1970 right shoulder surgery PAST SURGICAL HISTORY OF Left 2018 shoulder replacement REVISE MEDIAN N/CARPAL TUNNEL SURG Left 01/25/2024 Left wrist, revision carpal tunnel release with neurolysis and nerve wrap. Synovial biopsy SOCIAL AND FAMILY HISTORY FAMILY HISTORY Problem Relation Age of Onset Cancer Mother skin Cancer Father KIDNEY other (Brain Tumor) Father No Known Problems Brother Cancer Sister thyroid Anesthesia Problems No Family History Social History Tobacco Use Smoking status: Former Current packs/day: 0.00 Average packs/day: 1 pack/day for 10.0 years (10.0 ttl pk-yrs) Types: Cigarettes Start date: 10/27/1973 Quit date: 10/27/1983 Years since quittin.9 Passive exposure: Past Smokeless tobacco: Never Vaping Use Vaping status: Never Used Substance Use Topics Alcohol use: Yes Comment: very rarely Drug use: Not Currently Comment: has tried marijuana gummies in the past for pain CURRENT MEDICATIONS: Current Outpatient Medications Medication Sig HYDROcodone-acetaminophen (NORCO) 5-325 mg per tablet Take 1 tablet by mouth every 8 hours as needed for pain for up to 30 days. tamsulosin (FLOMAX) 0.4 mg Take 1 capsule by mouth daily at bedtime. azelastine 0.1% nasal spray Use 1 [place] in each nostril two times a day. amLODIPine (NORVASC) 5 mg tablet Take 1 tablet by mouth once daily. metoprolol succinate ER (TOPROL XL) 25 mg 24 hr tablet Take 2 tablets by mouth once daily. fluticasone-salmeterol (ADVAIR DISKUS) 250-50 mcg/dose inhaler Inhale 1 Puff as instructed two times a day. albuterol HFA (VENTOLIN HFA) 90 mcg/actuation inhaler Inhale 2 Puffs as instructed every 4 hours as needed. hydrOXYchloroQUINE (PLAQUENIL) 200 mg tablet Take 1 tablet by mouth two times a day. pregabalin (LYRICA) 225 mg capsule Take 1 capsule by mouth two times a day for 90 days. pseudoep (more content not included)... [facility] 10-04-2024 History of Present illness Narrative RHEUMATOLOGY FOLLOW UP NOTE PROVIDER: Pat Seo MD DATE OF VISIT: 10/04/2024 PATIENT NAME: Zayda De La Vega CHIEF COMPLAINT / REASON FOR VISIT: SLE and joint pains SUBJECTIVE / INTERIM HISTORY: Patient returns for follow-up. Last seen here 2 mos ago. Since last visit: Old problems: 1. SLE Trial of prednisone repeated with some benefits Off now Still on HCQ and NSAIDs Considering other meds 2. Neuropathy 3. Gammopathy 4. Amyloid 5. (+) LAC Repeat neg No history of thrombosis New problems: 1. Notes increased hypersomnulence He sees Sleep Med Is on CPAP REVIEW OF SYSTEMS: Review of Systems CONSTITUTION: Negative for: Fever and Recent weight change HEENT: Positive for: Mouth sores, Trouble swallowing and Dry mouth Negative for: Nosebleeds RESPIRATORY: Positive for: Cough and Shortness of breath Negative for: Pain with breathing and Coughing up blood GASTROINTESTINAL: Positive for: Diarrhea Negative for: Melena, Heartburn and Abdominal pain MUSCULOSKELETAL: Positive for: Arthralgias, Myalgias, Muscle weakness and Morning Joint Stiffness Negative for: Joint swelling NEUROLOGICAL: Positive for: Numbness Negative for: Headaches and Memory loss SKIN: Positive for: Nail changes Negative for: Rash, Skin changes and Hair loss EYES: Positive for: Visual disturbance Negative for: Eye pain, Eye redness and Eye dryness CARDIOVASCULAR: Negative for: Chest pain and Leg swelling GENITOURINARY: Negative for: Dysuria and Hematuria HEMATOLOGIC/LYMPHATIC: Negative for: Swollen glands PAST MEDICAL AND SURGICAL HISTORY PAST MEDICAL HISTORY Diagnosis Date Anxiety Dr. Belle Arthritis of both hips Benign neoplasm of colon Bipolar disorder (HCC) Dr. Belle DDD (degenerative disc disease), lumbar Depressive disorder, not elsewhere classified Diverticulosis of colon (without mention of hemorrhage) HLD (hyperlipidemia) 06/13/2017 Hypertension Internal hemorrhoids without mention of complication Monoclonal paraproteinemia Morbid obesity (HCC) MARCELINA (obstructive sleep apnea) 1997 BiPAP Peripheral neuropathy Prediabetes 09/11/2019 Seasonal allergies Shoulder arthritis Systemic lupus erythematosus (HCC) 10/2021 PAST SURGICAL HISTORY Procedure Laterality Date ARTHROPLASTY TOTAL SHOULDER 04/03/2013 Right shoulder replacement ARTHRP ACETBLR/PROX FEM PROSTC AGRFT/ALGRFT 1993 Hip replacement, total RIGHT BACK SURGERY HX COLONOSCOPY FLX DX W/COLLJ SPEC WHEN PFRMD 08/11/1992 Colonoscopy COLONOSCOPY FLX DX W/COLLJ SPEC WHEN PFRMD 09/01/2018 Colonoscopy COLSC FLX W/RMVL OF TUMOR POLYP LESION SNARE TQ 06/26/2008 ESOPHAGOGASTRODUODENOSCOPY TRANSORAL DIAGNOSTIC 05/08/2020 EGD JOINT REPLACEMENT HX PAST SURGICAL HISTORY OF 1995 L5-S1 spinal fusion with pins, rods, and bolts PAST SURGICAL HISTORY OF 03/2011 Right hip revision PAST SURGICAL HISTORY OF 1970 right shoulder surgery PAST SURGICAL HISTORY OF Left 2018 shoulder replacement REVISE MEDIAN N/CARPAL TUNNEL SURG Left 01/25/2024 Left wrist, revision carpal tunnel release with neurolysis and nerve wrap. Synovial biopsy SOCIAL AND FAMILY HISTORY FAMILY HISTORY Problem Relation Age of Onset Cancer Mother skin Cancer Father KIDNEY other (Brain Tumor) Father No Known Problems Brother Cancer Sister thyroid Anesthesia Problems No Family History Social History Tobacco Use Smoking status: Former Current packs/day: 0.00 Average packs/day: 1 pack/day for 10.0 years (10.0 ttl pk-yrs) Types: Cigarettes Start date: 10/27/1973 Quit date: 10/27/1983 Years since quittin.9 Passive exposure: Past Smokeless tobacco: Never Vaping Use Vaping status: Never Used Substance Use Topics Alcohol use: Yes Comment: very rarely Drug use: Not Currently Comment: has tried marijuana gummies in the past for pain CURRENT MEDICATIONS: Current Outpatient Medications Medication Sig HYDROcodone-acetaminophen (NORCO) 5-325 mg per tablet Take 1 tablet by mouth every 8 hours as needed for pain for up to 30 days. tamsulosin (FLOMAX) 0.4 mg Take 1 capsule by mouth daily at bedtime. azelastine 0.1% nasal spray Use 1 [place] in each nostril two times a day. amLODIPine (NORVASC) 5 mg tablet Take 1 tablet by mouth once daily. metoprolol succinate ER (TOPROL XL) 25 mg 24 hr tablet Take 2 tablets by mouth once daily. fluticasone-salmeterol (ADVAIR DISKUS) 250-50 mcg/dose inhaler Inhale 1 Puff as instructed two times a day. albuterol HFA (VENTOLIN HFA) 90 mcg/actuation inhaler Inhale 2 Puffs as instructed every 4 hours as needed. hydrOXYchloroQUINE (PLAQUENIL) 200 mg tablet Take 1 tablet by mouth two times a day. pregabalin (LYRICA) 225 mg capsule Take 1 capsule by mouth two times a day for 90 days. pseudoephedrine HCl (PSEUDOEPHEDRINE NASAL DECON ORAL) Take by mouth. guaiFENesin (MUCINEX) 1,200 mg Ta12 Take 1 tablet by mouth two times a day. metFORMIN ER (GLUCOPHAGE XR) 500 mg 24 hr tablet Take one tablet daily with breakfast for 7 days, then increase to one tablet twice daily with breakfast and dinner. meloxicam (MOBIC) 15 mg tablet take 1 tablet once daily fexofenadine (ANÍBAL) 180 mg tablet Take 1 tablet by mouth once daily. CPAP/BIPAP/OTHER Replacement autobipap 18/9 with PS of 5cmH2O DME [employer] fluticasone (FLONASE) 50 mcg/actuation nasal spray USE 2 SPRAYS IN EACH NOSTRIL ONCE DAILY guaiFENesin (MUCINEX) 600 mg 12 hr tablet Take 1,200 mg by mouth twice daily as needed for cold/allergy symptoms. fish oil/borage/flax/om3,6,9 1 (OMEGA 3-6-9 ORAL) Take by mouth. alpha lipoic acid (LIPOIC ACID ORAL) Take by mouth. ZINC ORAL Take by mouth. LYSINE ORAL Take by mouth. CPAP Continue BiPAP with new settings: @ 14/8 cm of water with humidification. No new equipment is needed. aspirin, enteric coated (ASPIRIN, ENTERIC COATED) 81 mg EC tablet Take 81 mg by mouth once daily. IRON, FERROUS SULFATE, ORAL Take by mouth once daily. ASCORBIC ACID (VITAMIN C ORAL) Take by mouth once daily. buPROPion (WELLBUTRIN) 75 mg tablet Take 150 mg by mouth twice daily. predniSONE (DELTASONE) 10 mg tablet Take 1 tablet by mouth two times a day. (Patient not taking: Reported on 10/04/2024) No current facility-administered medications for this visit. PHYSICAL EXAMINATION: General: Patient is alert and oriented. Appears healthy and well. Vital signs: BP 136/65 Pulse (!) 55 Temp 36.6 C (97.9 F) (Temporal) Ht 172.7 cm (5' 8) Wt 127.9 kg (282 lb) SpO2 95% BMI 42.88 kg/m Skin: No rash, nodule or thickening. Eyes: No injection. PERRLA. Neck: No thyromegaly or mass. Lungs: Normal resp. effort. Clear to A & P. Heart: RRR without gallop, murmur or rub. Extremities: No edema. Pulses equal and normal. Musculoskeletal: OA features of hands and feet DATA: Laboratory: Reviewed Latest Ref Rng 08/08/2024 WBC 3.70 - 11.00 k/uL 7.74 RBC 4.20 - 6.00 m/uL 4.61 Hemoglobin 13.0 - 17.0 g/dL 14.0 Hematocrit 39.0 - 51.0 % 43.0 MCV 80.0 - 100.0 fL 93.3 MCH 26.0 - 34.0 pg 30.4 MCHC 30.5 - 36.0 g/dL 32.6 RDW-CV 11.5 - 15.0 % 13.7 Platelet Count 150 - 400 k/uL 302 MPV 9.0 - 12.7 fL 8.8 (L) Neut% % 39.2 Abs Neut (ANC) 1.45 - 7.50 k/uL 3.03 Lymph% % 48.3 Abs Lymph 1.00 - 4.00 k/uL 3.74 [place]% % 7.[address] [place] <0.87 k/uL 0.61 Eosin% % 3.2 Abs Eosin <0.46 k/uL 0.25 Baso% % 0.8 Abs Baso <0.11 k/uL 0.06 Immature Gran % % 0.6 IMMATURE GRANS (ABS) <0.10 k/uL 0.05 NRBC /100 WBC 0.0 Absolute nRBC <0.01 k/uL <0.01 DTYPE Auto PTT LA Screen 30.2 - 43.0 Seconds 41.0 PTT LA Mix 31.5 - 38.3 Seconds 36.9 Platelet Neut <1.9 Seconds 1.4 DRVVT Screen 32.0 - 45.7 seconds 38.3 DRVVT Confirm Ratio <1.32 1.12 DRVVT 1:1 Mix 32.0 - 45.7 seconds 36.3 Hex Phase Screen 34.0 - 51.8 seconds 53.2 (H) Hex Phase Confirm 34.2 - 47.9 seconds 49.0 (H) Hex Phase Delta <7.1 delta seconds 4.2 APTT Screen 24.0 - 35.1 seconds 32.0 Thrombin Time <18.6 seconds 17.8 Anti Xa Inhib Assay <0.10 <0.10 Creatinine 0.73 - 1.22 mg/dL 0.86 eGFR >=60 mL/min/1.73m 90 PT Sec 9.7 - 13.0 sec 11.0 PT INR 0.9 - 1.3 1.0 Interpretation(Lupus Anticoagulant) Normal - see comment below. Pathologist Reviewed by Shira Montiel M.D., Ph.D CRP <0.9 mg/dL 0.4 APTT 23.0 - 32.4 sec 27.4 Cardiolipin Ab, IgA <12.0 APL <9.0 Cardiolipin Ab, IgG <15.0 GPL <9.0 Cardiolipin Ab, IgM <12.5 MPL <9.0 Beta 2 Glycoprotein, IgG <20 SGU <9 Beta 2 Glycoprotein, IgM <20 SMU <9 Legend: (L) Low (H) High IMPRESSION / PROBLEM LIST: 1. 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 Likely small fiber neuropathy Based on symptoms Could be due to SLE or gammopathy Has seen Neurology in the past and then recent again 02/21 On Lyrica 3. Osteoarthritis 4. Gammopathy Following with Hematology here 5. Overweight 6. HTN 7. Hyperlipidemia 8. Anxiety / Depression 9. Ophtho up to date 08/26 10. Echocardiogram done 12/22 with RVSP est at 38 mmHg 10/25: Echo. RVSP 33 03/26: Echo RVSP 36 11. Sleep apnea Increased hypersomnulence 12. Indeterminate LAC Now (-) 12. Cough Following with Pulmonary team here 13. 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 Check TPMT too Will need new labs once starts AZA Consultations: Ophtho yearly FU Neurology FU Hematology I have messaged them FU Pulmonary FU Sleep Med team I have messaged them Physical / Occupational therapy: Continue home exercise program: light weights, range of motion and stretching. Medications:. If labs OK, consider azathioprine Can start low, but max dosage would be 200 mg a day Will need clearance from Hematology I have messaged them Joint / Bursa Aspirations / Injections: Consider cortisone injections to involved areas. Patient Education: Reviewed risks of AZA Weight loss Vaccinations: Keep up to date Other: Patient aware that I will call if testing is out of the range of what is expected. Patient should update all of his age appropriate malignancy screens. Follow-up: 4 mos I spent a total of 40 minutes on the date of the service which included preparing to see the patient, [id number] patient care, completing clinical documentation, performing a medically appropriate examination, counseling and educating the patient/family/caregiver, and ordering medications, tests, or procedures. Electronically signed by: Pat Seo MD CC: Edinson Zarate [address] [place] [address] [place] [id number] documented in this encounter [facility] 10-02-2024 Telephone encounter Note The following approved medication requests have been transmitted electronically. Requested Prescriptions Signed Prescriptions Disp Refills HYDROcodone-acetaminophen (NORCO) 5-325 mg per tablet 90 tablet 0 Sig: Take 1 tablet by mouth every 8 hours as needed for pain for up to 30 days. Authorizing Provider: EDINSON ZARATE MD [facility] 10-02-2024 Miscellaneous Notes The following approved medication requests have been transmitted electronically. Requested Prescriptions Signed Prescriptions Disp Refills HYDROcodone-acetaminophen (NORCO) 5-325 mg per tablet 90 tablet 0 Sig: Take 1 tablet by mouth every 8 hours as needed for pain for up to 30 days. Authorizing Provider: EDINSON ZARATE MD Prescription Refill Information The patient has been identified by name and date of : Yes Caregiver verified no other encounters exist for this prescription request: Yes Caregiver confirmed with patient/requestor that no other refills are due, in the near future, with this provider at this time: Yes The last office visit in the department: 08/07/2024 Does the patient have a future office visit with this provider/department: No Requested Prescriptions Pending Prescriptions Disp Refills HYDROcodone-acetaminophen (NORCO) 5-325 mg per tablet 90 tablet 0 Sig: Take 1 tablet by mouth every 8 hours as needed for pain for up to 30 days. Gaviota Metz MA October 02, 2024 2:05 PM documented in this encounter [facility] 10-02-2024 Telephone encounter Note Prescription Refill Information The patient has been identified by name and date of : Yes Caregiver verified no other encounters exist for this prescription request: Yes Caregiver confirmed with patient/requestor that no other refills are due, in the near future, with this provider at this time: Yes The last office visit in the department: 08/07/2024 Does the patient have a future office visit with this provider/department: No Requested Prescriptions Pending Prescriptions Disp Refills HYDROcodone-acetaminophen (NORCO) 5-325 mg per tablet 90 tablet 0 Sig: Take 1 tablet by mouth every 8 hours as needed for pain for up to 30 days. Gaviota Metz MA October 02, 2024 2:05 PM [facility] 09-24-2024 Telephone encounter Note Per separate encounter, Pablito MORENO is correct. Please send. rx [facility] 09-24-2024 Miscellaneous Notes Per separate encounter, Pablito MORENO is correct. Please send. rx Called pt left VM requesting call back. documented in this encounter [facility] 09-24-2024 Telephone encounter Note Called pt left VM requesting call back. [facility] 09-13-2024 History of Present illness Narrative Program_ID:[id number] Access Code: [email or web address] URL: [email or web address] Date: 09-13-2024 Prepared By: Harman Gilliam Program Notes Exercises - Hooklying Single Knee to Chest Stretch with Towel - 2 x daily - 7 x weekly - 3 sets - reps - Supine Lower Trunk Rotation - 2 x daily - 7 x weekly - 2 sets - 10 reps - Supine Bridge - 2 x daily - 7 x weekly - 2 sets - 8-10 reps - Supine Transversus Abdominis Bracing - Hands on Stomach - 2 x daily - 7 x weekly - 2 sets - 10 reps - Supine Hip ABDuction with Resistance - 2 x daily - 5-7 x weekly - 2 sets - 10 reps - Supine Hip Adduction Isometric with Ball - 2 x daily - 5-7 x weekly - 2 sets - 10 reps - Standing Anti-Rotation Press with Anchored Resistance - 2 x daily - 5-7 x weekly - 2 sets - 10 reps - Supine Active Straight Leg Raise - 2 x daily - 5-7 x weekly - 2 sets - 8-10 reps Images from the original note were not included. Episode Visit Count: 2 Therapist That Will Accept/Oversee The Plan Of Care: Harman Gilliam Start of Care Date: 08/23/24 Onset Date: 12/02/23 Plan of Care Certification Date: 08/23/24 Next Certification Due Date: 10/02/24 REHABILITATION AND SPORTS THERAPY PHYSICAL THERAPY DISCONTINUANCE OF CARE PLAN OF CARE UPDATE: Assessment: Zayda De La Vega is discontinued from Physical Therapy services due to Patient/Client declining further intervention. - Patient has decided to go to [place] for the winter (leaving in a couple of weeks) and has decided to complete exercises on his own time and discontinue supervised therapy. Will cancel remaining appointments. Patient was seen for 2 visits from Start of Care Date: 08/23/24 to 09/13/2024 and treatment included: Therapeutic exercise. Updated : 09/13/24. Goals for Episode of Care: established 08/23/24 Goals not assessed due to only patient 2nd visit. Most likely (NOT MET) due to poor adherence to plan since initial evaluation. Patient reported outcome of physical function will increase T-score by a minimum 5 points. [place] in home exercise program. Patient will decrease pain rating by 2 points to meet minimal clinical important difference for numeric pain rating scale. Patient will demonstrate increase in core strength to at least 3+/5 during manual muscle testing in order to improve function for prior functional tasks. Patient will demonstrate increase in BLE strength to 5/5 during manual muscle testing in order to improve function for prior functional tasks. Patient will increase flexibility of tissues surrounding BLE to WNL to decrease pain. Improve score on 5TSTS Test to <14 seconds to reflect decreased fall risk. Improve score on 30 Second Chair Stand to 11 repetitions to reflect decreased fall risk. Increase ROM of lumbar spine to WFL for all motions. Patient Goals: Improve Pain; Improve Strength and Conditioning. SUBJECTIVE: States at this point I have completely failed at PT. Reports he has not completed exercises much. States today will be his last visit because he is going to [place] for the winter. Wants to continue indep. Pain: Pain Pain Level: 4 Pain Location: Low Back/Lumbar Spine- Midline Description: Dull PROMIS Scales 09/13/2024 08/22/2024 08/01/2024 Higher is Better Phys Func - Score 37 (moderate dysfunction) 29 (severe dysfunction) Phys Func - Percentile 10 2 Self-Eff Symptom - Score 37 (Low) Self-Eff Symptom - Percentile 10 T-scores: mean of general population = 50. 5 points is clinically meaningfully difference Percentiles provide an indication of how the patient's score ranks in relation to the general population. Higher percentile rankings indicate better function/quality of life. 50th percentile is the average of the general population and indicates half of respondents had a worse score. OBJECTIVE MEASURES WITH LEVEL OF FUNCTION: Re-corrected bracing technique. Patient with significant upper trunk compensation, Educated to not hold his breath. TREATMENT: Therapeutic Exercise: 1: *Discussed importance of HEP and active movement for progression of phys. function. Discussed how to/ways to be more compliant with exercises. Rediscussed and evaluated current exercises, added extra exercises for self-progression with HEP. New handout given. Bands cut. 2: HL LTR: 1x10, 3-5 hold. Discussed only to discomfort. 3: HL TrA Bracinx10, 5-sec holds. Verbal & tactile cues for form. Advised not to hold breath. 4: Glute Bridges: x5 5: *Hip ADD Ball Squeeze: 1x5, 5-sec hlds. 6: *Hip ABD vs. Btb: 1x5, 5-sec hlds. 7: *SLR: x5 each side. 8: *Pallof Press: x10 each way. Skilled Intervention: Patient was educated in proper exercise technique and purpose for exercises. Reviewed and educated patient on additions/changes for home exercise program as above (*). Skilled judgment was used in selection of appropriate interventions. Provided written instruction for home exercise program to facilitate proper performance and compliance. Billing Therapeutic Exercise Treatment Minutes: 27 Skilled Treatment Time Minutes (timed and untimed codes): 27 Total Session Time (minutes): 27 Session Start Time : 1415 Session Stop Time : 1442 Harman Gilliam PT documented in this encounter [facility] 09-13-2024 Note HNO ID: [id number] Author: HARMAN GILLIAM PT Service: ? Author Type: Physical Therapist Type: Progress Notes Filed: 09/13/2024 14:52 Note Text: Episode Visit Count: 2 Therapist That Will Accept/Oversee The Plan Of Care: Harman Gilliam Start of Care Date: 08/23/24 Onset Date: 12/02/23 Plan of Care Certification Date: 08/23/24 Next Certification Due Date: 10/02/24 REHABILITATION AND SPORTS THERAPY PHYSICAL THERAPY DISCONTINUANCE OF CARE PLAN OF CARE UPDATE: Assessment: Zayda De La Vega is discontinued from Physical Therapy services due to Patient/Client declining further intervention. - Patient has decided to go to [place] for the winter (leaving in a couple of weeks) and has decided to complete exercises on his own time and discontinue supervised therapy. Will cancel remaining appointments. Patient was seen for 2 visits from Start of Care Date: 08/23/24 to 09/13/2024 and treatment included: Therapeutic exercise. Updated : 09/13/24. Goals for Episode of Care: established 08/23/24 Goals not assessed due to only patient 2nd visit. Most likely (NOT MET) due to poor adherence to plan since initial evaluation. Patient reported outcome of physical function will increase T-score by a minimum 5 points. [place] in home exercise program. Patient will decrease pain rating by 2 points to meet minimal clinical important difference for numeric pain rating scale. Patient will demonstrate increase in core strength to at least 3+/5 during manual muscle testing in order to improve function for prior functional tasks. Patient will demonstrate increase in BLE strength to 5/5 during manual muscle testing in order to improve function for prior functional tasks. Patient will increase flexibility of tissues surrounding BLE to WNL to decrease pain. Improve score on 5TSTS Test to <14 seconds to reflect decreased fall risk. Improve score on 30 Second Chair Stand to 11 repetitions to reflect decreased fall risk. Increase ROM of lumbar spine to WFL for all motions. Patient Goals: Improve Pain; Improve Strength and Conditioning. SUBJECTIVE: States at this point I have completely failed at PT. Reports he has not completed exercises much. States today will be his last visit because he is going to [place] for the winter. Wants to continue indep. Pain: Pain Pain Level: 4 Pain Location: Low Back/Lumbar Spine- Midline Description: Dull PROMIS Scales 09/13/2024 08/22/2024 08/01/2024 Higher is Better Phys Func - Score 37 (moderate dysfunction) 29 (severe dysfunction) Phys Func - Percentile 10 2 Self-Eff Symptom - Score 37 (Low) Self-Eff Symptom - Percentile 10 T-scores: mean of general population = 50. 5 points is clinically meaningfully difference Percentiles provide an indication of how the patient's score ranks in relation to the general population. Higher percentile rankings indicate better function/quality of life. 50th percentile is the average of the general population and indicates half of respondents had a worse score. OBJECTIVE MEASURES WITH LEVEL OF FUNCTION: Re-corrected bracing technique. Patient with significant upper trunk compensation, Educated to not hold his breath. TREATMENT: Therapeutic Exercise: 1: *Discussed importance of HEP and active movement for progression of phys. function. Discussed how to/ways to be more compliant with exercises. Rediscussed and evaluated current exercises, added extra exercises for self-progression with HEP. New handout given. Bands cut. 2: HL LTR: 1x10, 3-5 hold. Discussed only to discomfort. 3: HL TrA Bracinx10, 5-sec holds. Verbal AND tactile cues for form. Advised not to hold breath. 4: Glute Bridges: x5 5: *Hip ADD Ball Squeeze: 1x5, 5-sec hlds. 6: *Hip ABD vs. Btb: 1x5, 5-sec hlds. 7: *SLR: x5 each side. 8: *Pallof Press: x10 each way. Skilled Intervention: Patient was educated in proper exercise technique and purpose for exercises. Reviewed and educated patient on additions/changes for home exercise program as above (*). Skilled judgment was used in selection of appropriate interventions. Provided written instruction for home exercise program to facilitate proper performance and compliance. Billing Therapeutic Exercise Treatment Minutes: 27 Skilled Treatment Time Minutes (timed and untimed codes): 27 Total Session Time (minutes): 27 Session Start Time : 1415 Session Stop Time : 1442 Harman Gilliam, PT [facility] 09-10-2024 Telephone encounter Note Rx pended. Please advise. [facility] 09-10-2024 Miscellaneous Notes Rx pended. Please advise. Called pt [facility] sent [employer] message as well. Zayda is calling Edinson Zarate MD today with concern regarding Medication Problem. He has 3 meds that were sent in error to [facility] last month and he no longer uses that pharmacy. He has been out of medication, especially Metoprolol. He is asking for these to please be transferred today to his [facility]. Patient has been identified by name and birthdate. Duration of symptoms: N/A Person calling: self Call patient at: at home [phone] (home) [phone] (cell) Was an appointment scheduled: No Closing statement: Results or non-symptom based questions: Thank you for calling [facility], your call will be returned within the next business day. Maday Sheehan documented in this encounter [facility] 09-10-2024 Telephone encounter Note Called pt [facility] sent [employer] message as well. [facility] 09-10-2024 Telephone encounter Note Zayda is calling Edinson Zarate MD today with concern regarding Medication Problem. He has 3 meds that were sent in error to [facility] last month and he no longer uses that pharmacy. He has been out of medication, especially Metoprolol. He is asking for these to please be transferred today to his [facility]. Patient has been identified by name and birthdate. Duration of symptoms: N/A Person calling: self Call patient at: at home [phone] (home) [phone] (cell) Was an appointment scheduled: No Closing statement: Results or non-symptom based questions: Thank you for calling [facility], your call will be returned within the next business day. Maday Sheehan [facility] 09-10-2024 Telephone encounter Note Patient requests via MyChart refills as follows: Requested Prescriptions Pending Prescriptions Disp Refills fluticasone-salmeterol (ADVAIR DISKUS) 250-50 mcg/dose inhaler 60 Each 5 Sig: Inhale 1 Puff as instructed two times a day. albuterol HFA (VENTOLIN HFA) 90 mcg/actuation inhaler 18 g 5 Sig: Inhale 2 Puffs as instructed every 4 hours as needed. Please review and advise. AR Hodgson-07/02/2024-Adilia Auguste [facility] 09-10-2024 Miscellaneous Notes Patient requests via MyChart refills as follows: Requested Prescriptions Pending Prescriptions Disp Refills fluticasone-salmeterol (ADVAIR DISKUS) 250-50 mcg/dose inhaler 60 Each 5 Sig: Inhale 1 Puff as instructed two times a day. albuterol HFA (VENTOLIN HFA) 90 mcg/actuation inhaler 18 g 5 Sig: Inhale 2 Puffs as instructed every 4 hours as needed. Please review and advise. AR Hodgson07/02/2024-Adilia Auguste documented in this encounter [facility] 08-29-2024 Telephone encounter Note The following approved medication requests have been transmitted electronically. Requested Prescriptions Signed Prescriptions Disp Refills HYDROcodone-acetaminophen (NORCO) 5-325 mg per tablet 90 tablet 0 Sig: Take 1 tablet by mouth every 8 hours as needed for pain for up to 30 days. Edinson Zarate MD [facility] 08-29-2024 Miscellaneous Notes The following approved medication requests have been transmitted electronically. Requested Prescriptions Signed Prescriptions Disp Refills HYDROcodone-acetaminophen (NORCO) 5-325 mg per tablet 90 tablet 0 Sig: Take 1 tablet by mouth every 8 hours as needed for pain for up to 30 days. Edinson Zarate MD Please review and advise documented in this encounter [facility] 08-28-2024 Telephone encounter Note The following approved medication requests have been transmitted electronically. Requested Prescriptions Signed Prescriptions Disp Refills predniSONE (DELTASONE) 10 mg tablet 60 tablet 0 Sig: Take 1 tablet by mouth two times a day. Authorizing Provider: PAT SEO MD [facility] 08-28-2024 Miscellaneous Notes The following approved medication requests have been transmitted electronically. Requested Prescriptions Signed Prescriptions Disp Refills predniSONE (DELTASONE) 10 mg tablet 60 tablet 0 Sig: Take 1 tablet by mouth two times a day. Authorizing Provider: PAT SEO MD documented in this encounter [facility] 08-28-2024 Telephone encounter Note Prescription Refill Information The patient has been identified by name and date of : Yes Caregiver verified no other encounters exist for this prescription request: Yes Caregiver confirmed with patient/requestor that no other refills are due, in the near future, with this provider at this time: Yes The last office visit in the department: 08/07/2024 Does the patient have a future office visit with this provider/department: No Requested Prescriptions Pending Prescriptions Disp Refills metoprolol succinate ER (TOPROL XL) 25 mg 24 hr tablet 180 tablet 3 Sig: Take 2 tablets by mouth once daily. amLODIPine (NORVASC) 5 mg tablet 90 tablet 3 Sig: Take 1 tablet by mouth once daily. Gricelda Lloyd LPN August 28, 2024 9:27 AM [facility] 08-28-2024 Miscellaneous Notes Prescription Refill Information The patient has been identified by name and date of : Yes Caregiver verified no other encounters exist for this prescription request: Yes Caregiver confirmed with patient/requestor that no other refills are due, in the near future, with this provider at this time: Yes The last office visit in the department: 08/07/2024 Does the patient have a future office visit with this provider/department: No Requested Prescriptions Pending Prescriptions Disp Refills metoprolol succinate ER (TOPROL XL) 25 mg 24 hr tablet 180 tablet 3 Sig: Take 2 tablets by mouth once daily. amLODIPine (NORVASC) 5 mg tablet 90 tablet 3 Sig: Take 1 tablet by mouth once daily. Gricelda Lloyd LPN August 28, 2024 9:27 AM documented in this encounter [facility] 08-27-2024 Telephone encounter Note Please review and advise [facility] 08-23-2024 History of Present illness Narrative Program_ID:[id number] Access Code: [email or web address] URL: [email or web address]/ Date: 08-23-2024 Prepared By: Harman Gilliam Program Notes Exercises - Hooklying Single Knee to Chest Stretch with Towel - 2 x daily - 7 x weekly - 3 sets - reps - Supine Lower Trunk Rotation - 2 x daily - 7 x weekly - 2 sets - 10 reps - Supine Bridge - 2 x daily - 7 x weekly - 2 sets - 8-10 reps - Supine Transversus Abdominis Bracing - Hands on Stomach - 2 x daily - 7 x weekly - 2 sets - 10 reps Images from the original note were not included. Episode Visit Count: 1 Therapist That Will Accept/Oversee The Plan Of Care: Harman Gilliam Start of Care Date: 08/23/24 Onset Date: 12/02/23 Plan of Care Certification Date: 08/23/24 Next Certification Due Date: 10/02/24 Patient Identified by Name and Date of : Yes REHABILITATION AND SPORTS THERAPY PHYSICAL THERAPY EVALUATION PLAN OF CARE: Assessment: Zayda De La Vega presents with chief complaint of chronic midline LBP with intermittent radicular pain in the B lower extremities (unable to attribute what activity/position causes this) that interferes with walking, physical activities, standing . The patient presents with impairments in ADL's, gait, independence in exercise, overall function, posture, range of motion, symptom management, decreased strength in core and BLE; decreased flexibility in BLE. PROMIS (Patient-Reported Outcomes Measurement Information System) scores were reviewed and identified as a rehabilitation concern. Prognosis for therapy is Good due to: current objective clinical presentation, positive past response to therapy, good support system/ coping skills .The patient will benefit from skilled therapy services to meet the goals established for this plan of care as noted below. Classification Pain Mechanism Classification: Neuropathic Low Back Pain Classification: Movement Control PAST MEDICAL HISTORY Diagnosis Date Anxiety Dr. Belle Arthritis of both hips Benign neoplasm of colon Bipolar disorder (HCC) Dr. Belle DDD (degenerative disc disease), lumbar Depressive disorder, not elsewhere classified Diverticulosis of colon (without mention of hemorrhage) HLD (hyperlipidemia) 06/13/2017 Hypertension Internal hemorrhoids without mention of complication Monoclonal paraproteinemia Morbid obesity (HCC) MARCELINA (obstructive sleep apnea) 1998 BiPAP Peripheral neuropathy Prediabetes 09/11/2019 Seasonal allergies Shoulder arthritis Systemic lupus erythematosus (HCC) 10/2021 Goals for Episode of Care: established 08/23/24 Patient reported outcome of physical function will increase T-score by a minimum 5 points. [place] in home exercise program. Patient will decrease pain rating by 2 points to meet minimal clinical important difference for numeric pain rating scale. Patient will demonstrate increase in core strength to at least 3+/5 during manual muscle testing in order to improve function for prior functional tasks. Patient will demonstrate increase in BLE strength to 5/5 during manual muscle testing in order to improve function for prior functional tasks. Patient will increase flexibility of tissues surrounding BLE to WNL to decrease pain. Improve score on 5TSTS Test to <14 seconds to reflect decreased fall risk. Improve score on 30 Second Chair Stand to 11 repetitions to reflect decreased fall risk. Increase ROM of lumbar spine to WFL for all motions. Improve Modified Oswestry Pain Questionnaire (LBP) by 6 points (12%) to indicate a Minimal Clinical Important Difference. (20 on initial eval). Patient Goals: Improve Pain; Improve Strength and Conditioning. Time Frame for Goals and Treatment : 10/24/24 Planned Interventions, Frequency, and Duration: Current Frequency: 1x/week Duration: 4 weeks Total Number of Visits Planned: 4 Planned Treatment Interventions: Therapeutic exercise (85474), Neuromuscular re-education (62982), Manual therapy (13748), Therapeutic activities (62322), Self-alf management (98661), Gait Training (08497), Body Mechanics Training, Patient/Family/Caregiver Education PLAN FOR NEXT VISIT: Review, correct and progress HEP to tolerance. progress core stabilization exercises. Patient demonstrates good understanding of plan of care and treatment. The above goals and plan of care were discussed and agreed upon by patient/family. SUBJECTIVE: Pain in the constant midline low back and reports intermittent B Radicular pain; states core & low back feel weak overall. States back pain is aching with shooting pains down the legs, mostly anterior. Walking, standing are his worst. Sitting & lying are the best. States does not exercise regularly due to feet arthritis. Takes Lyrica. Steriod seems to be helping. Denies red flag sxs. Patient Goals: Improve Pain; Improve Strength and Conditioning. Functional Limitations: walking, physical activities, standing Prior Level of Function: Independent without limitations Relevant History Past Relevant Medical Conditions: Neuropathy (Lupus.) Past Relevant Surgical Conditions: Spine fusion - Lumbar, Total Hip Replacement-Right Spine Fusion - Lumbar Comments: 1995 L5-S1; R Hip Done in 1992 & revised shortly into the . Employment: Retired Intake Information: Prescription present Previous Treatment: Surgery (1/2 Dose Low Dose Alexander PRN; Tylenol all the time. Prednisone.) Falls Interview: No positive findings with falls interview Red Flags Vertebral Fracture Red Flags: Age >70 Vertebral Fracture Clinical Reasoning: Proceed with caution due to the above (1-2) risk factors Abdominal Aortic Aneurysm Red Flags: Age >60 Abdominal Aortic Aneurysm Clinical Reasoning: Proceed with caution Cancer Red Flags: Age >50 or <20 Cancer Clinical Reasoning: Proceed with caution Infection Clinical Reasoning: No identified risk factors. Cauda Equina Syndrome Clinical Reasoning: No identified risk factors. Red Flags - Cervical Cancer Red Flags: Age >50 or <20 Cancer Clinical Reasoning: Proceed with caution Infection Clinical Reasoning: No identified risk factors. Pain: Pain Pain Level: 2 Pain Location: Low Back/Lumbar Spine- Midline Description: Dull Frequency: Continuous Post Treatment Pain Post Treatment Pain Level: No Change PROMIS Scales 08/22/2024 08/01/2024 05/22/2024 Higher is Better Phys Func - Score 29 (severe dysfunction) 34 (moderate dysfunction) Phys Func - Percentile 2 5 Self-Eff Symptom - Score 37 (Low) Self-Eff Symptom - Percentile 10 T-scores: mean of general population = 50. 5 points is clinically meaningfully difference Percentiles provide an indication of how the patient's score ranks in relation to the general population. Higher percentile rankings indicate better function/quality of life. 50th percentile is the average of the general population and indicates half of respondents had a worse score. OBJECTIVE MEASURES WITH LEVEL OF FUNCTION: Posture / Alignment Posture: Forward head, Rounded shoulders Spine Observations R Lumbar Spine Palpation Tenderness: No tenderness noted L Lumbar Spine Palpation Tenderness: No tenderness noted Sensation - Lumbar Sensation: Grossly Intact Lumbar Spine AROM Lumbar Flexion: Minimal limitation (Has to bend knees) Lumbar Extension: Minimal limitation Lumbar R Side [place]: Moderate limitation Lumbar L Side [place]: Moderate limitation Lumbar R Side-Bend: Normal Lumbar L Side-Bend: Normal Lumbar R Rotation: Minimal limitation Lumbar L Rotation: Minimal limitation Repeated Test Movements - Lumbar RFIS - Symptoms During: no effect RFIS - Symptoms After: no effect MABEL - Symptoms During: no effect MABEL - Symptoms After: no effect LE Flexibility Flexibility: Hamstring Flexibility, Quadriceps Flexibility R Hamstring Flexibility: -35 90/90 SLR Test L Hamstring Flexibility: -35 90/90 SLR Test R Quadriceps Flexibility: Mod Restrictions L Quadriceps Flexibility: Mod Restrictions LE Strength Trunk Strength: Lower Abdominals: 3-/5 R LE Strength: Grossly 4+/5 R Hip Flexion (L2): 4/5 R Hip ABduction: 4/5 L Hip Flexion (L2): 4/5 L Hip ABduction: 4/5 Functional Strength Functional Strength: Supine<>sit, Sit<>stand Supine<>sit: Increased time to perform. Sit/Stand: Requires hands majority of the time. Special Tests - Hip and Spine Hip and Spine Special Tests: SLR Test, Slump Test SLR Test: Right Negative, Left Negative Slump Test: Right Negative, Left Negative Gait Weight Bearing Status: FWB Gait Device: None Gait Deviations: General Deviations General Deviations/Observations: Venita decreased, Step length decreased, Lateral sway increased Functional Performance Test Results 30 Second Chair Stand Test: 8 reps 5 Times Sit to Stand Test : 17.9 sec Education: Education Learning Preferences: Demonstration, Explanation Barriers: None Learning/educational needs: Health promotion, Home exercise program, Plan of Care Education Provided: Yes, see treatment interventions for education provided Education Provided To: Patient Education Mode/Type: Demonstration, Explanation/Discussion, Literature/Printed Materials Response to Education/Teach Back: States/Identifies TREATMENT: PT Treatment Interventions: Therapeutic Exercise, Self-Penitentiary Management Evaluation Therapeutic Exercise: 1: *B SKC: 2x30. 2: *HL LTR: 1x10, 3-5 hold. Discussed only to discomfort. 3: *HL TrA Bracinx10, 5-sec holds. Verbal & tactile cues for form. Advised not to hold breath. 4: *Glute Bridges: x10. 5: Lumbar Flexion Stretch in seated wide feet: 2x30. Not sent on HEP. 6: Patient educated on evaluation findings, rehabilitation process, timeframe for goals, and anatomy relevant to diagnosis. Reviewed impact of muscle weakness, deconditioning & tightness on pain. Discussed radiographs & therapy implications. Thoroughly went over HEP and handout given. Skilled Intervention: Patient was educated in proper exercise technique and purpose for exercises. Reviewed and educated patient on additions/changes for home exercise program as above (*). Skilled judgment was used in selection of appropriate interventions. Provided written instruction for home exercise program to facilitate proper performance and compliance. Correct performance of therapeutic exercises was facilitated with tactile cuing. Billing * Evaluation Low Complexity: 1 Unit Therapeutic Exercise Treatment Minutes: 23 Skilled Treatment Time Minutes (timed and untimed codes): 45 Total Session Time (minutes): 45 Session Start Time : 1545 Session Stop Time : 1630 Harman Gilliam PT documented in this encounter [facility] 08-23-2024 Note HNO ID: [id number] Author: HARMAN GILLIAM PT Service: ? Author Type: Physical Therapist Type: Progress Notes Filed: 08/24/2024 10:05 Note Text: Episode Visit Count: 1 Therapist That Will Accept/Oversee The Plan Of Care: Harman Gilliam Start of Care Date: 08/23/24 Onset Date: 12/02/23 Plan of Care Certification Date: 08/23/24 Next Certification Due Date: 10/02/24 Patient Identified by Name and Date of : Yes REHABILITATION AND SPORTS THERAPY PHYSICAL THERAPY EVALUATION PLAN OF CARE: Assessment: Zayda De La Vega presents with chief complaint of chronic midline LBP with intermittent radicular pain in the B lower extremities (unable to attribute what activity/position causes this) that interferes with walking, physical activities, standing . The patient presents with impairments in ADL's, gait, independence in exercise, overall function, posture, range of motion, symptom management, decreased strength in core and BLE; decreased flexibility in BLE. PROMIS? (Patient-Reported Outcomes Measurement Information System) scores were reviewed and identified as a rehabilitation concern. Prognosis for therapy is Good due to: current objective clinical presentation, positive past response to therapy, good support system/ coping skills .The patient will benefit from skilled therapy services to meet the goals established for this plan of care as noted below. Classification Pain Mechanism Classification: Neuropathic Low Back Pain Classification: Movement Control PAST MEDICAL HISTORY Diagnosis Date Anxiety Dr. Belle Arthritis of both hips Benign neoplasm of colon Bipolar disorder (HCC) Dr. Belle DDD (degenerative disc disease), lumbar Depressive disorder, not elsewhere classified Diverticulosis of colon (without mention of hemorrhage) HLD (hyperlipidemia) 06/13/2017 Hypertension Internal hemorrhoids without mention of complication Monoclonal paraproteinemia Morbid obesity (HCC) MARCELINA (obstructive sleep apnea) 1998 BiPAP Peripheral neuropathy Prediabetes 09/11/2019 Seasonal allergies Shoulder arthritis Systemic lupus erythematosus (HCC) 10/2021 Goals for Episode of Care: established 08/23/24 Patient reported outcome of physical function will increase T-score by a minimum 5 points. [place] in home exercise program. Patient will decrease pain rating by 2 points to meet minimal clinical important difference for numeric pain rating scale. Patient will demonstrate increase in core strength to at least 3+/5 during manual muscle testing in order to improve function for prior functional tasks. Patient will demonstrate increase in BLE strength to 5/5 during manual muscle testing in order to improve function for prior functional tasks. Patient will increase flexibility of tissues surrounding BLE to WNL to decrease pain. Improve score on 5TSTS Test to <14 seconds to reflect decreased fall risk. Improve score on 30 Second Chair Stand to 11 repetitions to reflect decreased fall risk. Increase ROM of lumbar spine to WFL for all motions. Improve Modified Oswestry Pain Questionnaire (LBP) by 6 points (12%) to indicate a Minimal Clinical Important Difference. (20 on initial eval). Patient Goals: Improve Pain; Improve Strength and Conditioning. Time Frame for Goals and Treatment : 10/24/24 Planned Interventions, Frequency, and Duration: Current Frequency: 1x/week Duration: 4 weeks Total Number of Visits Planned: 4 Planned Treatment Interventions: Therapeutic exercise (76847), Neuromuscular re-education (52822), Manual therapy (02848), Therapeutic activities (79892), Self-alf management (62001), Gait Training (50146), Body Mechanics Training, Patient/Family/Caregiver Education PLAN FOR NEXT VISIT: Review, correct and progress HEP to tolerance. progress core stabilization exercises. Patient demonstrates good understanding of plan of care and treatment. The above goals and plan of care were discussed and agreed upon by patient/family. SUBJECTIVE: Pain in the constant midline low back and reports intermittent B Radicular pain; states core AND low back feel weak overall. States back pain is aching with shooting pains down the legs, mostly anterior. Walking, standing are his worst. Sitting AND lying are the best. States does not exercise regularly due to feet arthritis. Takes Lyrica. Steriod seems to be helping. Denies red flag sxs. Patient Goals: Improve Pain; Improve Strength and Conditioning. Functional Limitations: walking, physical activities, standing Prior Level of Function: Independent without limitations Relevant History Past Relevant Medical Conditions: Neuropathy (Lupus.) Past Relevant Surgical Conditions: Spine fusion - Lumbar, Total Hip Replacement-Right Spine Fusion - Lumbar Comments: 1995 L5-S1; R Hip Done in 1992 AND revised shortly into the . Employment: Retired Intake Information: Prescription present Previous Na (more content not included)... [facility] 08-22-2024 Telephone encounter Note The following approved medication requests have been transmitted electronically. Requested Prescriptions Signed Prescriptions Disp Refills hydrOXYchloroQUINE (PLAQUENIL) 200 mg tablet 180 tablet 1 Sig: Take 1 tablet by mouth two times a day. Authorizing Provider: EDINSON ZARATE Refused Prescriptions Disp Refills HYDROcodone-acetaminophen (NORCO) 5-325 mg per tablet 90 tablet 0 Sig: Take 1 tablet by mouth every 8 hours as needed for pain for up to 30 days. Refused By: REAGAN MORALES Reason for Refusal: Patient has requested refill too soon He had a refill sent on 08/11 . [facility] Zarate MD [facility] 08-22-2024 Miscellaneous Notes The following approved medication requests have been transmitted electronically. Requested Prescriptions Signed Prescriptions Disp Refills hydrOXYchloroQUINE (PLAQUENIL) 200 mg tablet 180 tablet 1 Sig: Take 1 tablet by mouth two times a day. Authorizing Provider: EDINSON ZARATE Refused Prescriptions Disp Refills HYDROcodone-acetaminophen (NORCO) 5-325 mg per tablet 90 tablet 0 Sig: Take 1 tablet by mouth every 8 hours as needed for pain for up to 30 days. Refused By: REAGAN MORALES Reason for Refusal: Patient has requested refill too soon He had a refill sent on 08/11 . [facility] Prescription Refill Information The patient has been identified by name and date of : Yes Caregiver verified no other encounters exist for this prescription request: Yes Caregiver confirmed with patient/requestor that no other refills are due, in the near future, with this provider at this time: Yes The last office visit in the department: 08/07/24 Does the patient have a future office visit with this provider/department: No Requested Prescriptions Pending Prescriptions Disp Refills hydrOXYchloroQUINE (PLAQUENIL) 200 mg tablet 180 tablet 1 Sig: Take 1 tablet by mouth two times a day. Refused Prescriptions Disp Refills HYDROcodone-acetaminophen (NORCO) 5-325 mg per tablet 90 tablet 0 Sig: Take 1 tablet by mouth every 8 hours as needed for pain for up to 30 days. Reagan Morales MA August 22, 2024 3:59 PM documented in this encounter [facility] 08-22-2024 Telephone encounter Note Prescription Refill Information The patient has been identified by name and date of : Yes Caregiver verified no other encounters exist for this prescription request: Yes Caregiver confirmed with patient/requestor that no other refills are due, in the near future, with this provider at this time: Yes The last office visit in the department: 08/07/24 Does the patient have a future office visit with this provider/department: No Requested Prescriptions Pending Prescriptions Disp Refills hydrOXYchloroQUINE (PLAQUENIL) 200 mg tablet 180 tablet 1 Sig: Take 1 tablet by mouth two times a day. Refused Prescriptions Disp Refills HYDROcodone-acetaminophen (NORCO) 5-325 mg per tablet 90 tablet 0 Sig: Take 1 tablet by mouth every 8 hours as needed for pain for up to 30 days. Reagan Morales MA August 22, 2024 3:59 PM [facility] 08-21-2024 Note HNO ID: [id number] Author: REMBERTO COHEN Lead Rider Service: ? Author Type: Lead Rider Type: Progress Notes Filed: 08/21/2024 14:32 Note Text: Virtual Visit (Audio/Visual)I have discussed the nature of this visit with the patient which will occur via [facility] (Phone, Virtual Visit) and he agrees to proceed with this interaction. Zayda is not interested in moving forward. [facility] 08-21-2024 History of Present illness Narrative Virtual Visit (Audio/Visual)I have discussed the nature of this visit with the patient which will occur via [facility] (Phone, Virtual Visit) and he agrees to proceed with this interaction. Zayda is not interested in moving forward. documented in this encounter [facility] 08-20-2024 Instructions Katelyn Fernandez PA-C - 08/20/2024 2:16 PM EST General healthy recommendations: Aim for 4-5 servings (1 cup) vegetables. The more colorful the better. Aim for 2-3 servings (1 cup) of whole fruit Try to get 120 + grams of protein/day. Fiber - aim for > 25 grams/day for women and >38 grams/day men. Work your way up to this if you are not already at this amount. Going up to fast can result in excess bloating. Add healthy fats - avocado, salmon, nuts (pistachio, almond, walnut), seed (carolina, sunflower), EVOO, avocado oil (avoid fried foods, vegetable oil, canola oil) Limit added sugar to <25 grams a day for women and <38 grams a day for men Aim to drink half of your body weigh in water daily Aim for 30 minutes of vigorous activity 5 days a week or 7000 steps/day. Preferably some weight training as well for strong muscle and bones. Protein per serving [place] (3 oz) = 17.4 grams Beef (3 oz) = 22 grams Chicken (3 oz) = 19.6 grams Soy beans (1 cup)= 28.5 grams Lentil (1 cup) = 17.9 grams Nagel beans/chickpeas = 19 grams per 1 cup Hemp heart seeds are great to sprinkle on all types of food Nuts/seeds are great additions to cereal, etc. Recipes: all anti-inflammatory [email or web address] [facility] wellness videos Go to [email or web address] Yoga - Come As You Are (gentle chair yoga) Mahesh Chi Relaxation for chronic pain - guided meditations Relieve, Relax, Recharge - different meditations available Free wellness classes online (meditation, yoga, fitness) See the schedule and sign up for classes at: [email or web address] documented in this encounter [facility] 08-20-2024 History of Present illness Narrative Wellness Follow up Mr.Paul Neto De La Vega is a 73 year old male is here for a wellness and preventive medicine follow up visit. Chief complaint: pain HPI: 73 year old male here in follow up with chronic joint pains and nerve pain related to neuropathy. He also follows with spine. He tried acupuncture with marginal relief. He is currently on prednisone/off meloxicam. It seems to be helping his nerve condition, but OA pain worse. He is regularly taking 1.5 hour nap every day, but also sleeping better at night. He only did the chair yoga a few times and his diet is similar. Limiting dairy though did help his PND and cough. Psychosocial: Nutrition: limited dairy, corn flakes with raisins, almond milk; meat, vegetable, chicken salad, saltine crackers, grapes Water: mostly water 30 oz/day, cranberry juice (non-sugar); Alcohol: rare Caffeine: limiting pop BM: daily, formed Sleep: 10-5 or 7-10; 1.5 nap/day, CPAP Movement/exercise - PT starting tomorrow Stress - mild 04/23/24: 73 year old male with a history of SLE, neuropathy, MARCELINA and GERD presents with OA (bilateral hip and shoulder replacements), but now mostly in feet. 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 He is also followed fo gamminopathy. His pain is mostly muscle, tendons and burning skin on UE and LE. He also has some muscle weakness and pain. He also has neuropathy in hands and feet. TENS unit did not help the back pain in the past. ALLERGIES Allergen Reactions Aspartame Swelling Pt gets burning sensation under skin Betadine [Povidone-* Rash Blister Cymbalta [Duloxetin* Other: See Comments Sweating Lisinopril Cough Cough Losartan Cough Niacin Other: See Comments Niacin-Dermid Burning pain all over Penicillins Rash Seasonal Allergies Other: See Comments GRASS POLLEN-positive skin test 09-05-13 Sudafed [Pseudoephe* Other: See Comments Difficulty swallowing, swelling of tongue & lips Tamiflu [Oseltamivi* Shortness of Breath SOB, arm pain Trazodone Shortness of Breath Ultram [Tramadol] Per patient contraindication due to wellbutrin Current Outpatient Medications on File Prior to Visit Medication Sig predniSONE (DELTASONE) 10 mg tablet Take 1 tablet by mouth two times a day. pregabalin (LYRICA) 225 mg capsule Take 1 capsule by mouth two times a day for 90 days. HYDROcodone-acetaminophen (NORCO) 5-325 mg per tablet Take 1 tablet by mouth every 8 hours as needed for pain for up to 30 days. Patient should start on August 11, 2024. amLODIPine (NORVASC) 5 mg tablet Take 1 tablet by mouth once daily. pseudoephedrine HCl (PSEUDOEPHEDRINE NASAL DECON ORAL) Take by mouth. guaiFENesin (MUCINEX) 1,200 mg Ta12 Take 1 tablet by mouth two times a day. albuterol HFA (VENTOLIN HFA) 90 mcg/actuation inhaler Inhale 2 Puffs as instructed every 4 hours as needed. metFORMIN ER (GLUCOPHAGE XR) 500 mg 24 hr tablet Take one tablet daily with breakfast for 7 days, then increase to one tablet twice daily with breakfast and dinner. azelastine 0.1% nasal spray Use 1 [place] in each nostril two times a day. meloxicam (MOBIC) 15 mg tablet take 1 tablet once daily fexofenadine (ANÍBAL) 180 mg tablet Take 1 tablet by mouth once daily. fluticasone-salmeterol (ADVAIR DISKUS) 250-50 mcg/dose inhaler Inhale 1 Puff as instructed two times a day. tamsulosin (FLOMAX) 0.4 mg Take 1 capsule by mouth daily at bedtime. CPAP/BIPAP/OTHER Replacement autobipap 20/06 with PS of 5cmH2O DME [employer] hydrOXYchloroQUINE (PLAQUENIL) 200 mg tablet Take 1 tablet by mouth two times a day. fluticasone (FLONASE) 50 mcg/actuation nasal spray USE 2 SPRAYS IN EACH NOSTRIL ONCE DAILY metoprolol succinate ER (TOPROL XL) 25 mg 24 hr tablet Take 2 tablets by mouth once daily. guaiFENesin (MUCINEX) 600 mg 12 hr tablet Take 1,200 mg by mouth twice daily as needed for cold/allergy symptoms. fish oil/borage/flax/om3,6,9 1 (OMEGA 3-6-9 ORAL) Take by mouth. alpha lipoic acid (LIPOIC ACID ORAL) Take by mouth. ZINC ORAL Take by mouth. LYSINE ORAL Take by mouth. CPAP Continue BiPAP with new settings: @ 14/8 cm of water with humidification. No new equipment is needed. aspirin, enteric coated (ASPIRIN, ENTERIC COATED) 81 mg EC tablet Take 81 mg by mouth once daily. IRON, FERROUS SULFATE, ORAL Take by mouth once daily. ASCORBIC ACID (VITAMIN C ORAL) Take by mouth once daily. buPROPion (WELLBUTRIN) 75 mg tablet Take 150 mg by mouth twice daily. REVIEW OF SYSTEMS: +joint pains, denies constipation, denies diarrhea Physical Exam BP 146/76 (BP Site: Right Arm, BP Position: Sitting, BP Cuff Size: Extra Large Adult) Pulse (!) 58 GENERAL: Well groomed, well appearing, no acute distress HEENT: sclera anicteric, pink tongue, glasses NEURO: Non-antalgic gait, but carries a cane in case, alert and oriented x 3, UE and LE strength 5/5, EXT: Normal extremities SKIN/HAIR/NAILS: appear generally healthy PREVIOUS STUDIES/LABS: Latest Ref Rng 03/14/2024 Glucose, Point of Care 74 - 99 mg/dL 116 ! XR L spine (08/03/24): IMPRESSION: 1. No acute fracture. 2. Multilevel degenerative changes. 3. Surgical hardware is intact IMPRESSION: Mr. Zayda De La Vega is a 73 year old year old male with a history of smoldering myeloma, SLE, OA and obesity here for a wellness and preventive medicine follow up visit regarding pain. Acupuncture helped a bit, but he is also focusing on building back some core strength with PT tomorrow and we will continue to try to improve nutrition. A wellness and preventive medicine approach was discussed with the patient including risks, benefits, and alternatives. He agrees to proceed. It was emphasized that he should continue with all of her current treating caregivers's recommendations. Treatment plan/recommendations: (M54.42, M54.41, G89.29) Chronic bilateral low back pain with bilateral sciatica (primary encounter diagnosis) (G89.4) Chronic pain syndrome (G62.9) Polyneuropathy, unspecified (M32.9) Systemic lupus erythematosus, unspecified SLE type, unspecified organ involvement status (HCC) Comment: currently on prednisone, lyrica, plaquenil and hydrocodone Plan: - continue medications as directed - do PT - gave chair yoga resources again - Mediterranean, plant based diet again recommended - continue to limit dairy due to PND (E66.01) Severe obesity (BMI >= 40) (HCC) Comment: Plan: - Mediterranenan, plant based diet again recommended - slowly incorporate more movement as tolerated It has been a pleasure to see Mr. Zayda De La Vega for a wellness and preventive medicine follow up. I have asked Zayda De La Vega to return to see me 6 months. Thank you for the referral or interest in caring for your whole body and mind. I spent a total of 41 minutes on the date of the service which included preparing to see the patient, [id number] patient care, completing clinical documentation, obtaining and/or reviewing separately obtained history, performing a medically appropriate examination, counseling and educating the patient/family/caregiver, independently interpreting results (not separately reported), and communicating results to the patient/family/caregiver. documented in this encounter [facility] 08-20-2024 Note HNO ID: [id number] Author: KATELYN FERNANDEZ PA-C Service: ? Author Type: Physician Quarter Trimmer Type: Progress Notes Filed: 08/20/2024 14:42 Note Text: Wellness Follow up Mr.Paul Neto De La Vega is a 73 year old male is here for a wellness and preventive medicine follow up visit. Chief complaint: pain HPI: 73 year old male here in follow up with chronic joint pains and nerve pain related to neuropathy. He also follows with spine. He tried acupuncture with marginal relief. He is currently on prednisone/off meloxicam. It seems to be helping his nerve condition, but OA pain worse. He is regularly taking 1.5 hour nap every day, but also sleeping better at night. He only did the chair yoga a few times and his diet is similar. Limiting dairy though did help his PND and cough. Psychosocial: Nutrition: limited dairy, corn flakes with raisins, almond milk; meat, vegetable, chicken salad, saltine crackers, grapes Water: mostly water 30 oz/day, cranberry juice (non-sugar); Alcohol: rare Caffeine: limiting pop BM: daily, formed Sleep: 10-5 or 7-10; 1.5 nap/day, CPAP Movement/exercise - PT starting tomorrow Stress - mild 04/23/24: 73 year old male with a history of SLE, neuropathy, MARCELINA and GERD presents with OA (bilateral hip and shoulder replacements), but now mostly in feet. 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 He is also followed fo gamminopathy. His pain is mostly muscle, tendons and burning skin on UE and LE. He also has some muscle weakness and pain. He also has neuropathy in hands and feet. TENS unit did not help the back pain in the past. ALLERGIES Allergen Reactions Aspartame Swelling Pt gets burning sensation under skin Betadine [Povidone-* Rash Blister Cymbalta [Duloxetin* Other: See Comments Sweating Lisinopril Cough Cough Losartan Cough Niacin Other: See Comments Niacin-Dermid Burning pain all over Penicillins Rash Seasonal Allergies Other: See Comments GRASS POLLEN-positive skin test 09-05-13 Sudafed [Pseudoephe* Other: See Comments Difficulty swallowing, swelling of tongue AND lips Tamiflu [Oseltamivi* Shortness of Breath SOB, arm pain Trazodone Shortness of Breath Ultram [Tramadol] Per patient contraindication due to wellbutrin Current Outpatient Medications on File Prior to Visit Medication Sig predniSONE (DELTASONE) 10 mg tablet Take 1 tablet by mouth two times a day. pregabalin (LYRICA) 225 mg capsule Take 1 capsule by mouth two times a day for 90 days. HYDROcodone-acetaminophen (NORCO) 5-325 mg per tablet Take 1 tablet by mouth every 8 hours as needed for pain for up to 30 days. Patient should start on August 11, 2024. amLODIPine (NORVASC) 5 mg tablet Take 1 tablet by mouth once daily. pseudoephedrine HCl (PSEUDOEPHEDRINE NASAL DECON ORAL) Take by mouth. guaiFENesin (MUCINEX) 1,200 mg Ta12 Take 1 tablet by mouth two times a day. albuterol HFA (VENTOLIN HFA) 90 mcg/actuation inhaler Inhale 2 Puffs as instructed every 4 hours as needed. metFORMIN ER (GLUCOPHAGE XR) 500 mg 24 hr tablet Take one tablet daily with breakfast for 7 days, then increase to one tablet twice daily with breakfast and dinner. azelastine 0.1% nasal spray Use 1 [place] in each nostril two times a day. meloxicam (MOBIC) 15 mg tablet take 1 tablet once daily fexofenadine (ANÍBAL) 180 mg tablet Take 1 tablet by mouth once daily. fluticasone-salmeterol (ADVAIR DISKUS) 250-50 mcg/dose inhaler Inhale 1 Puff as instructed two times a day. tamsulosin (FLOMAX) 0.4 mg Take 1 capsule by mouth daily at bedtime. CPAP/BIPAP/OTHER Replacement autobipap 18/9 with PS of 5cmH2O DME [employer] hydrOXYchloroQUINE (PLAQUENIL) 200 mg tablet Take 1 tablet by mouth two times a day. fluticasone (FLONASE) 50 mcg/actuation nasal spray USE 2 SPRAYS IN EACH NOSTRIL ONCE DAILY metoprolol succinate ER (TOPROL XL) 25 mg 24 hr tablet Take 2 tablets by mouth once daily. guaiFENesin (MUCINEX) 600 mg 12 hr tablet Take 1,200 mg by mouth twice daily as needed for cold/allergy symptoms. fish oil/borage/flax/om3,6,9 1 (OMEGA 3-6-9 ORAL) Take by mouth. alpha lipoic acid (LIPOIC ACID ORAL) Take by mouth. ZINC ORAL Take by mouth. LYSINE ORAL Take by mouth. CPAP Continue BiPAP with new settings: @ 14/8 cm of water with humidification. No new equipment is needed. aspirin, enteric coated (ASPIRIN, ENTERIC COATED) 81 mg EC tablet Take 81 mg by mouth once daily. IRON, FERROUS SULFATE, ORAL Take by mouth once daily. ASCORBIC ACID (VITAMIN C ORAL) Take by mouth once daily. buPROPion (WELLBUTRIN) 75 mg tablet Take 150 mg by mouth twice daily. REVIEW OF SYSTEMS: +joint pains, denies constipation, denies diarrhea Physical Exam BP 146/76 (BP Site: Right Arm, BP Position: Sitting, BP Cuff Size: Extra Large Adult) Pulse (!) 58 GENERAL: Well groomed, well appearing, no acute distress HEENT: sclera anicteric, pink tongue, glasses NEURO: (more content not included)... [facility] 08-15-2024 Telephone encounter Note Received plaquenil eye visit summary from [facility]. Placed in provider's inbox for review. Route to MA scanning [facility] 08-15-2024 Miscellaneous Notes Received plaquenil eye visit summary from [facility]. Placed in provider's inbox for review. Route to MA scanning documented in this encounter [facility] 08-09-2024 History of Present illness Narrative Yoni Peng MD Department of Orthopaedics Orthopaedic Surgery [facility] [id number] [address] [facility] [address] Dept: [phone] Dept August 09, 2024 CHIEF COMPLAINT: Established Patient and Numbness of the Right Wrist, Established Patient and Pain of the Right Index Finger (stiffness), Established Patient and Pain of the Right Middle Finger (stiffness), and US bilateral wrist 10/10/23 HPI Pt is right hand dominant. Pt states right index and middle finger are stiff and right hand feels like he has carpal tunnel (numbness). ASSESSMENT: R20.0 Bilateral hand numbness (primary encounter diagnosis) PLAN: He's having trouble with the right hand. He had revision with a nerve wrap on the other side, and while maybe slightly improved, he's deciding at this time to not look towards revision on the right. We are thinking this is overall general neuropathy. Happy to revisit at anytime. OBJECTIVE: Mr. Zayda De La Vega is a pleasant 73 year old in no apparent distress. Gen:There were no vitals taken for this visit. nl development, obese, no deformities ENT: Normocephalic, normal hearing, moist mucosa CV: Pulses:Radial= 2+ and symmetric, capillary refill < 2 secs, no peripheral edema/varicosities Skin: no rash, bruising or lesions. Good turgor. Psych: cooperative and appropriate, alert and oriented x 3, good mood and affect. Musculoskeletal: Diminished light touch in all the digits. Some stiffness and mild swelling in the digits. Imaging: Deferred today Supporting Subjective Information Below: Past Surgical History: PAST SURGICAL HISTORY Procedure Laterality Date ARTHROPLASTY TOTAL SHOULDER 04/03/2013 Right shoulder replacement ARTHRP ACETBLR/PROX FEM PROSTC AGRFT/ALGRFT 1992 Hip replacement, total RIGHT BACK SURGERY HX COLONOSCOPY FLX DX W/COLLJ SPEC WHEN PFRMD 08/11/1992 Colonoscopy COLONOSCOPY FLX DX W/COLLJ SPEC WHEN PFRMD 09/01/2018 Colonoscopy COLSC FLX W/RMVL OF TUMOR POLYP LESION SNARE TQ 06/26/2008 ESOPHAGOGASTRODUODENOSCOPY TRANSORAL DIAGNOSTIC 05/08/2020 EGD JOINT REPLACEMENT HX PAST SURGICAL HISTORY OF 1995 L5-S1 spinal fusion with pins, rods, and bolts PAST SURGICAL HISTORY OF 03/2011 Right hip revision PAST SURGICAL HISTORY OF 1970 right shoulder surgery PAST SURGICAL HISTORY OF Left 2018 shoulder replacement REVISE MEDIAN N/CARPAL TUNNEL SURG Left 01/25/2024 Left wrist, revision carpal tunnel release with neurolysis and nerve wrap. Synovial biopsy Medications: Current Outpatient Medications Medication Sig predniSONE (DELTASONE) 10 mg tablet Take 1 tablet by mouth two times a day. pregabalin (LYRICA) 225 mg capsule Take 1 capsule by mouth two times a day for 90 days. [START ON 08/11/2024] HYDROcodone-acetaminophen (NORCO) 5-325 mg per tablet Take 1 tablet by mouth every 8 hours as needed for pain for up to 30 days. Patient should start on August 11, 2024. amLODIPine (NORVASC) 5 mg tablet Take 1 tablet by mouth once daily. pseudoephedrine HCl (PSEUDOEPHEDRINE NASAL DECON ORAL) Take by mouth. guaiFENesin (MUCINEX) 1,200 mg Ta12 Take 1 tablet by mouth two times a day. albuterol HFA (VENTOLIN HFA) 90 mcg/actuation inhaler Inhale 2 Puffs as instructed every 4 hours as needed. metFORMIN ER (GLUCOPHAGE XR) 500 mg 24 hr tablet Take one tablet daily with breakfast for 7 days, then increase to one tablet twice daily with breakfast and dinner. azelastine 0.1% nasal spray Use 1 [place] in each nostril two times a day. meloxicam (MOBIC) 15 mg tablet take 1 tablet once daily fexofenadine (ANÍBAL) 180 mg tablet Take 1 tablet by mouth once daily. fluticasone-salmeterol (ADVAIR DISKUS) 250-50 mcg/dose inhaler Inhale 1 Puff as instructed two times a day. tamsulosin (FLOMAX) 0.4 mg Take 1 capsule by mouth daily at bedtime. CPAP/BIPAP/OTHER Replacement autobipap 20/06 with PS of 5cmH2O DME [employer] hydrOXYchloroQUINE (PLAQUENIL) 200 mg tablet Take 1 tablet by mouth two times a day. fluticasone (FLONASE) 50 mcg/actuation nasal spray USE 2 SPRAYS IN EACH NOSTRIL ONCE DAILY metoprolol succinate ER (TOPROL XL) 25 mg 24 hr tablet Take 2 tablets by mouth once daily. guaiFENesin (MUCINEX) 600 mg 12 hr tablet Take 1,200 mg by mouth twice daily as needed for cold/allergy symptoms. fish oil/borage/flax/om3,6,9 1 (OMEGA 3-6-9 ORAL) Take by mouth. alpha lipoic acid (LIPOIC ACID ORAL) Take by mouth. ZINC ORAL Take by mouth. LYSINE ORAL Take by mouth. CPAP Continue BiPAP with new settings: @ 14/8 cm of water with humidification. No new equipment is needed. aspirin, enteric coated (ASPIRIN, ENTERIC COATED) 81 mg EC tablet Take 81 mg by mouth once daily. IRON, FERROUS SULFATE, ORAL Take by mouth once daily. ASCORBIC ACID (VITAMIN C ORAL) Take by mouth once daily. buPROPion (WELLBUTRIN) 75 mg tablet Take 150 mg by mouth twice daily. No current facility-administered medications for this visit. Allergies: Aspartame, Betadine [Povidone-Iodine], Cymbalta [Duloxetine], Lisinopril, Losartan, Niacin, Penicillins, Seasonal Allergies, Sudafed [Pseudoephedrine Hcl], Tamiflu [Oseltamivir Phosphate], Trazodone, and Ultram [Tramadol] ROS: General (negative for fatigue, malaise, weight loss/gain) HEENT (negative for headache, earache, recent vision changes, sinus pain, sore throat) Respiratory (no recent shortness of breath, hemoptysis) CV (negative for chest tightness, palpitations) Musculoskeletal (see HPI) Psych (no depression, anxiety) Yoni Peng MD documented in this encounter [facility] 08-08-2024 Instructions Pat Seo MD - 08/08/2024 9:40 AM EST Do new labs today 1st floor Desk A15 If the blood still shows easy clotting, I may confer with the Hematology team about this also Stop the meloxicam (Mobic) Start prednisone 10 mg 1 pill twice a day Report back to me in 2 weeks on whether this is helping and if so, what percentage benefit do you see documented in this encounter [facility] 08-08-2024 History of Present illness Narrative RHEUMATOLOGY FOLLOW UP NOTE PROVIDER: Pat Seo MD DATE OF VISIT: 08/08/2024 PATIENT NAME: Zayda LUTHER CHIEF COMPLAINT / REASON FOR VISIT: SLE SUBJECTIVE / INTERIM HISTORY: Patient returns for follow-up. Last seen here 04/25. Since last visit: Old problems: 1. SLE Mainly joint pains No clear organ dysfunction 2. Joint pains Mainly feet 3. Neuropathy On Lyrica Stable Bothersome still 4. Gammopathy Seeing Heme 5. Amyloid Seeing Heme 6. Ophtho upcoming next week New problems: 1. Has had some increased sciatica Has had lumbar surgery in the past [facility] 2. R hand with some dysfunction To see Ortho hand 3. Last labs with (+) LAC No hx of thrombosis REVIEW OF SYSTEMS: General: No fever, weight loss. Skin: No rash, nodule. Eyes: No vision change, inflammation, dryness. HENT: No oral ulcers, dryness. Cardiac: No chest pain, palpitations. Pulmonary:No cough, dyspnea, pleurisy. GI: No nausea, abdominal pain, diarrhea. : No dysuria, discharge. Neuro: No new numbness, focal weakness, headache. Rest of ROS reviewed and noted in HPI. PAST MEDICAL AND SURGICAL HISTORY PAST MEDICAL HISTORY Diagnosis Date Anxiety Dr. Belle Arthritis of both hips Benign neoplasm of colon Bipolar disorder (HCC) Dr. Belle DDD (degenerative disc disease), lumbar Depressive disorder, not elsewhere classified Diverticulosis of colon (without mention of hemorrhage) HLD (hyperlipidemia) 06/13/2017 Hypertension Internal hemorrhoids without mention of complication Monoclonal paraproteinemia Morbid obesity (HCC) MARCELINA (obstructive sleep apnea) 1998 BiPAP Peripheral neuropathy Prediabetes 09/11/2019 Seasonal allergies Shoulder arthritis Systemic lupus erythematosus (HCC) 10/2021 PAST SURGICAL HISTORY Procedure Laterality Date ARTHROPLASTY TOTAL SHOULDER 04/03/2013 Right shoulder replacement ARTHRP ACETBLR/PROX FEM PROSTC AGRFT/ALGRFT 1992 Hip replacement, total RIGHT BACK SURGERY HX COLONOSCOPY FLX DX W/COLLJ SPEC WHEN PFRMD 08/11/1992 Colonoscopy COLONOSCOPY FLX DX W/COLLJ SPEC WHEN PFRMD 09/01/2018 Colonoscopy COLSC FLX W/RMVL OF TUMOR POLYP LESION SNARE TQ 06/26/2008 ESOPHAGOGASTRODUODENOSCOPY TRANSORAL DIAGNOSTIC 05/08/2020 EGD JOINT REPLACEMENT HX PAST SURGICAL HISTORY OF 1995 L5-S1 spinal fusion with pins, rods, and bolts PAST SURGICAL HISTORY OF 03/2011 Right hip revision PAST SURGICAL HISTORY OF 1970 right shoulder surgery PAST SURGICAL HISTORY OF Left 2018 shoulder replacement REVISE MEDIAN N/CARPAL TUNNEL SURG Left 01/25/2024 Left wrist, revision carpal tunnel release with neurolysis and nerve wrap. Synovial biopsy SOCIAL AND FAMILY HISTORY FAMILY HISTORY Problem Relation Age of Onset Cancer Mother skin Cancer Father KIDNEY other (Brain Tumor) Father No Known Problems Brother Cancer Sister thyroid Anesthesia Problems No Family History Social History Tobacco Use Smoking status: Former Current packs/day: 0.00 Average packs/day: 1 pack/day for 10.0 years (10.0 ttl pk-yrs) Types: Cigarettes Start date: 10/27/1973 Quit date: 10/27/1983 Years since quittin.8 Passive exposure: Past Smokeless tobacco: Never Vaping Use Vaping status: Never Used Substance Use Topics Alcohol use: Yes Comment: very rarely Drug use: Not Currently Comment: has tried marijuana gummies in the past for pain CURRENT MEDICATIONS: Current Outpatient Medications Medication Sig pregabalin (LYRICA) 225 mg capsule Take 1 capsule by mouth two times a day for 90 days. [START ON 08/11/2024] HYDROcodone-acetaminophen (NORCO) 5-325 mg per tablet Take 1 tablet by mouth every 8 hours as needed for pain for up to 30 days. Patient should start on August 11, 2024. amLODIPine (NORVASC) 5 mg tablet Take 1 tablet by mouth once daily. pseudoephedrine HCl (PSEUDOEPHEDRINE NASAL DECON ORAL) Take by mouth. guaiFENesin (MUCINEX) 1,200 mg Ta12 Take 1 tablet by mouth two times a day. albuterol HFA (VENTOLIN HFA) 90 mcg/actuation inhaler Inhale 2 Puffs as instructed every 4 hours as needed. metFORMIN ER (GLUCOPHAGE XR) 500 mg 24 hr tablet Take one tablet daily with breakfast for 7 days, then increase to one tablet twice daily with breakfast and dinner. azelastine 0.1% nasal spray Use 1 [place] in each nostril two times a day. meloxicam (MOBIC) 15 mg tablet take 1 tablet once daily fexofenadine (ANÍBAL) 180 mg tablet Take 1 tablet by mouth once daily. fluticasone-salmeterol (ADVAIR DISKUS) 250-50 mcg/dose inhaler Inhale 1 Puff as instructed two times a day. tamsulosin (FLOMAX) 0.4 mg Take 1 capsule by mouth daily at bedtime. CPAP/BIPAP/OTHER Replacement autobipap 20/06 with PS of 5cmH2O DME [employer] hydrOXYchloroQUINE (PLAQUENIL) 200 mg tablet Take 1 tablet by mouth two times a day. fluticasone (FLONASE) 50 mcg/actuation nasal spray USE 2 SPRAYS IN EACH NOSTRIL ONCE DAILY metoprolol succinate ER (TOPROL XL) 25 mg 24 hr tablet Take 2 tablets by mouth once daily. guaiFENesin (MUCINEX) 600 mg 12 hr tablet Take 1,200 mg by mouth twice daily as needed for cold/allergy symptoms. fish oil/borage/flax/om3,6,9 1 (OMEGA 3-6-9 ORAL) Take by mouth. alpha lipoic acid (LIPOIC ACID ORAL) Take by mouth. ZINC ORAL Take by mouth. LYSINE ORAL Take by mouth. CPAP Continue BiPAP with new settings: @ 14/8 cm of water with humidification. No new equipment is needed. aspirin, enteric coated (ASPIRIN, ENTERIC COATED) 81 mg EC tablet Take 81 mg by mouth once daily. IRON, FERROUS SULFATE, ORAL Take by mouth once daily. ASCORBIC ACID (VITAMIN C ORAL) Take by mouth once daily. buPROPion (WELLBUTRIN) 75 mg tablet Take 150 mg by mouth twice daily. No current facility-administered medications for this visit. PHYSICAL EXAMINATION: General: Patient is alert and oriented. Appears healthy and well. Vital signs: BP 136/68 Pulse (!) 55 Temp 36.3 C (97.3 F) (Temporal) Wt 127.3 kg (280 lb 11.2 oz) BMI 43.96 kg/m Skin: No new rash, nodule or thickening. Eyes: No injection. PERRLA. Neck: No thyromegaly or mass. Lungs: Normal resp. effort. Clear to A & P. Heart: RRR without gallop, murmur or rub. Extremities: No edema. Pulses equal and normal. Musculoskeletal: OA features to hands and feet No new swelling noted DATA: Laboratory: Reviewed Latest Ref Rng 04/25/2024 Color Yellow Yellow Clarity Clear Clear Glucose, Urine Negative Negative Bilirubin, Urine Negative Negative Ketones, Urine Negative Negative Specific [place], Ur 1.005 - 1.030 1.014 Hemoglobin/Blood,Ur Negative Negative pH, Urine <8.5 6.5 Protein, Urine Negative Negative Urobilinogen 0.2-1.0 EU/dL 0.2 EU/dL Nitrites Negative Negative Leukest Negative Negative WBC, Urine 0-5 /HPF 0-5 /HPF RBC, Urine 0-2 /HPF 0-2 /HPF Bacteria Negative /HPF Negative Epithelial Cells /HPF None Seen Hyaline Cast 0 /LPF 0 /LPF PTT LA Screen 30.2 - 43.0 Seconds 44.1 (H) PTT LA Mix 31.5 - 38.3 Seconds 39.1 (H) Platelet Neut <1.9 Seconds 2.0 (H) DRVVT Screen 32.0 - 45.7 seconds 35.1 DRVVT Confirm Ratio <1.32 1.02 DRVVT 1:1 Mix 32.0 - 45.7 seconds 34.5 Hex Phase Screen 34.0 - 51.8 seconds 57.9 (H) Hex Phase Confirm 34.2 - 47.9 seconds 52.5 (H) Hex Phase Delta <7.1 delta seconds 5.5 APTT Screen 24.0 - 35.1 seconds 33.9 Thrombin Time <18.6 seconds 17.9 Anti Xa Inhib Assay <0.10 <0.10 DNA Antibody <=200 IU/mL 358 (H) DNA Antibody Qualitative Interpretation Negative Moderate Positive ! Sm Antibody Negative Negative Anti-Sm <1.0 AI <0.2 SENIOR SUPPLIER QUALITY ENGINEER Antibody QUAL Negative Positive ! Anti-SENIOR SUPPLIER QUALITY ENGINEER <1.0 AI 2.4 (H) SSA Antibody Qual Negative Negative Anti-SSA <1.0 AI <0.2 Anti-SSB <1.0 AI <0.2 SSB Antibody Qual Negative Negative CENTROMERE AB QUAL Negative Negative Centromere Ab <1.0 AI <0.2 Scleroderma Ab Qual Negative Negative Scl-70 Abs, EIA <1.0 AI <0.2 SHELLIE 1 ANTIBODY QUAL Negative Negative Shellie 1 Antibody <1.0 AI <0.2 Ribosomal SENIOR SUPPLIER QUALITY ENGINEER Qualitative Negative Negative Ribosomal SENIOR SUPPLIER QUALITY ENGINEER Ab <1.0 AI <0.2 Chromatin Ab Qual Negative Positive ! Chromatin Ab <1.0 AI 2.4 (H) PT Sec <13.1 sec 10.5 PT INR 0.9 - 1.3 1.0 Interpretation(Lupus Anticoagulant) Abnormal - see comment below. Pathologist Reviewed by Shira Montiel M.D., Ph.D C3 86 - 166 mg/dL 153 C4 13 - 46 mg/dL 26 CK 51 - 298 U/L 199 APTT 23.0 - 32.4 sec 28.1 Cardiolipin Ab, IgA <12.0 APL <9.0 Cardiolipin Ab, IgG <15.0 GPL <9.0 Cardiolipin Ab, IgM <12.5 MPL <9.0 Beta 2 Glycoprotein, IgG <20 SGU <9 Beta 2 Glycoprotein, IgM <20 SMU <9 Crithidia lucillae Negative Positive ! Factor VIII:C Assay 50 - 173 % 99 Legend: (H) High ! Abnormal IMPRESSION / PROBLEM LIST: 1. 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 Now (+) Has fatigue, polyarthralgias and what sounds like small fiber neuropathy No clear dermatologic, hematologic, INSPECTION AND TESTING SUPERVISOR or renal disease On hydroxychloroquine 01/23: Trial of prednisone without benefits 2. Likely small fiber neuropathy Based on symptoms Could be due to SLE or gammopathy Has seen Neurology in the past and then recent again 5/22 On Lyrica 3. Osteoarthritis 4. Gammopathy Following with Hematology here 5. Overweight 6. HTN 7. Hyperlipidemia 8. Anxiety / Depression 9. Ophtho up to date 08/26 10. Echocardiogram done 12/22 with RVSP est at 38 mmHg 10/25: Echo. RVSP 33 03/26: Echo RVSP 36 11. Oral mass 12. Indeterminate LAC Now (+) 12. Cough Following with Pulmonary team here 13. 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 Consultations: Ophtho yearly FU Neurology FU Ortho FU various Heme teams Consider consult with Heme LAC team Physical / Occupational therapy: Continue home exercise program: light weights, range of motion and stretching. Medications: He would like to re-try prednisone 10 mg bid . If this helps, consider DMARD. biologic for lupus Continue hydroxychloroquine Patient Education: Reviewed risks of steroids Briefly reviewed general risks of DMARDs / biologics for lupus Vaccinations: Keep up to date Other: Patient aware that I will call if testing is out of the range of what is expected. Patient should update all of his age appropriate malignancy screens. Follow-up: 2 mos He will report back to me in 2 weeks with steroid trial Electronically signed by: Pat Seo MD CC: Edinson Zarate [address] [place] [address] [place] [id number] documented in this encounter [facility] 08-07-2024 History of Present illness Narrative CHIEF COMPLAINT Patient presents with: Refill Request Follow Up HISTORY OF PRESENT ILLNESS Zayda De La Vega is a 73 year old male who presents here today for follow up. I last saw this patient on 02/13/2024. - Reports that when he had his hand fixed, they found amyloidosis. - Was told that this usually goes [id number] with smoldering myeloma, which is under surveillance Lupus - Stable on current regimen Neuropathy - Stable - Was told that he could have surgery Health Maintenance Due for Advance Directive Discussion Due for Covid-19 Vaccine ( season) Labs reviewed. Past medical history, appointments, medications, allergies reviewed. REVIEW OF SYSTEMS General: Feels well, no weight changes, fevers or chills. HEENT: No sinus congestion, earache, sore throat. Cardiac: No chest pain, palpitations Resp: No cough, wheeze, shortness of breath GI: No reflux symptoms, food intolerance, bowel changes. : No urinary frequency, dysuria. MS: No pain or joint complaints. PAST MEDICAL HISTORY PAST MEDICAL HISTORY Diagnosis Date Anxiety Dr. Belle Arthritis of both hips Benign neoplasm of colon Bipolar disorder ([facility]) Dr. Belle DDD (degenerative disc disease), lumbar Depressive disorder, not elsewhere classified Diverticulosis of colon (without mention of hemorrhage) HLD (hyperlipidemia) 06/13/2017 Hypertension Internal hemorrhoids without mention of complication Monoclonal paraproteinemia Morbid obesity ([facility]) MARCELINA (obstructive sleep apnea) 1997 BiPAP Peripheral neuropathy Prediabetes 09/11/2019 Seasonal allergies Shoulder arthritis Systemic lupus erythematosus ([facility]) 10/2021 PHYSICAL EXAMINATION BP 134/76 Pulse 60 Ht 170.2 cm (5' 7) Wt 127 kg (279 lb 15.8 oz) SpO2 95% BMI 43.85 kg/m General: Alert, well developed, well nourished, no distress, pleasant and cooperative. Morbidly obese Heart: Regular rate and rhythm. Normal S1 and S2. No murmurs, rubs, or gallops. Lungs: Clear to auscultation bilaterally. No respiratory distress. No wheezes, rales, or rhonchi. Abdomen: Soft, non-tender, no distention. Extremities: Feet/ankles without edema, posterior tibial pulses full and symmetrical. Data Reviewed Latest Ref Rng 02/06/2024 Protein, Total 6.3 - 8.0 g/dL 6.2 (L) Albumin 3.9 - 4.9 g/dL 3.8 (L) Calcium 8.5 - 10.2 mg/dL 9.1 Bilirubin, Total 0.2 - 1.3 mg/dL 0.3 Alkaline Phosphatase 38 - 113 U/L 63 AST 14 - 40 U/L 18 ALT 10 - 54 U/L 16 Glucose 74 - 99 mg/dL 111 (H) BUN 9 - 24 mg/dL 13 Creatinine 0.73 - 1.22 mg/dL 0.73 Sodium 136 - 144 mmol/L 139 Potassium 3.7 - 5.1 mmol/L 4.6 Chloride 97 - 105 mmol/L 107 (H) CO2 22 - 30 mmol/L 23 Anion Gap 9 - 18 mmol/L 9 eGFR >=60 mL/min/1.73m 95 WBC 3.70 - 11.00 k/uL 6.47 RBC 4.20 - 6.00 m/uL 4.16 (L) Hemoglobin 13.0 - 17.0 g/dL 12.5 (L) Hematocrit 39.0 - 51.0 % 39.0 MCV 80.0 - 100.0 fL 93.8 MCH 26.0 - 34.0 pg 30.0 MCHC 30.5 - 36.0 g/dL 32.1 RDW-CV 11.5 - 15.0 % 13.9 Platelet Count 150 - 400 k/uL 272 MPV 9.0 - 12.7 fL 8.9 (L) Absolute nRBC <0.01 k/uL <0.01 Cholesterol, Total <200 mg/dL 139 Triglyceride <150 mg/dL 177 (H) HDL Cholesterol >39 mg/dL 28 (L) Non HDL Cholesterol <130 mg/dL 111 Fasting Time hrs 12 VLDL Cholesterol <30 mg/dL 35 (H) TC:HDL Ratio <5.10 4.96 LDL Cholesterol <100 mg/dL 76 LDL:HDL Ratio <2.54 2.71 (H) Hemoglobin A1C 4.3 - 5.6 % 5.8 (H) Estimated Average Glucose mg/dL 120 Legend: (L) Low (H) High Assessment/Plan (E85.9) Amyloidosis, unspecified type (HCC) (primary encounter diagnosis) Comment: Stable Plan: Will continue to monitor (M32.19) Systemic lupus erythematosus with other organ involvement, unspecified SLE type (HCC) (M32.9) Systemic lupus erythematosus, unspecified SLE type, unspecified organ involvement status (HCC) Comment: Fairly managed on current regimen. In need of refill Plan: Continue current regimen pregabalin (LYRICA) 225 mg capsule (M19.019) Glenohumeral arthritis Comment: In need of refill Plan: HYDROcodone-acetaminophen (NORCO) 5-325 mg per tablet (M15.0) Primary osteoarthritis involving multiple joints Comment: Stable Plan: Continue current treatment plan (C90.00) 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) Comment: Under surveillance Plan: Will continue to monitor (E66.01, Z68.41) Morbid obesity with body mass index (BMI) of 40.0 to 44.9 in adult (HCC) Comment: Seen by endocrinology for weight management Plan: Continue to follow with endo (Z79.899) Medical marijuana use Comment: Uses occasionally Plan: Will continue to monitor, discussion on lack of information on interaction with other controlled meds. Requested Prescriptions Signed Prescriptions Disp Refills pregabalin (LYRICA) 225 mg capsule 180 capsule 0 Sig: Take 1 capsule by mouth two times a day for 90 days. HYDROcodone-acetaminophen (NORCO) 5-325 mg per tablet 90 tablet 0 Sig: Take 1 tablet by mouth every 8 hours as needed for pain for up to 30 days. Patient should start on August 11, 2024. RTO: 6 months or sooner as needed Scribe Attestation: By signing my name below, Je Rossi, attest that this documentation has been prepared under the direction and in the presence of Alex Zarate M.D. Electronically Signed: Celsa Valencia. August 07, 2024 2:51 PM Provider Attestation: Edinson Rossi MD, personally performed the services described in this documentation. All medical record entries made by the scribe were at my direction and in my telephonic presence. I have reviewed the chart and discharge instructions (if applicable), and agree that the record reflects my personal performance and is accurate and complete. Electronically Signed: Edinson Zarate MD August 08, 2024 11:55 AM documented in this encounter [facility] 08-03-2024 History of Present illness Narrative Radiology Service Progress Note PATIENT NAME: Zayda De La Vega DATE OF SERVICE: August 03, 2024 TIME: 3:48 PM PATIENT IDENTITY VERIFICATION COMPLETED USING TWO (2) IDENTIFIERS: Name and Date of confirmed by patient verbally. FALL SCREENING: Has the patient had 2 falls in the last year or 1 fall with injury or currently using an Ambulatory Assistive Device (Walker, Cane, Wheelchair, Crutches, etc.)? Yes, Patient High Risk for Falls What interventions were put in place to prevent falls during this visit? Instructed Patient to Remain Seated (Not on Exam Table) Until Exam and Increased Observations by Caregivers PATIENT GENDER DATA: Male PATIENT RELEVANT IMPLANT DATA REVIEWED: Not Applicable PATIENT PRESENTS WITH AN IMPLANTABLE OR ATTACHED NETWORK TECHNICAL ANALYST: No RADIOLOGY DEPARTMENT: General X-ray: Exam(s) Completed: Spine X-Ray(s): Lumbar AP / LAT / L5-S1 / FLEX-EXT PERIPHERAL IV DATA: Not applicable SIGNED BY: RT Federico(R) August 03, 2024 3:48 PM documented in this encounter [facility] 08-03-2024 History of Present illness Narrative Images from the original note were not included. [facility] Neurological [facility] - Medical Spine Initial Exam SUBJECTIVE HISTORY OF PRESENT ILLNESS: Zayda De La Vega is a 73 year old RHD male with PMHx amyloidosis, OA, Lupus, b/l CTS who presents with a chief complaint of back pain and is seen in consultation requested by Dr. Anurag Mejia for an opinion regarding back pain. My final recommendations will be communicated back to the requesting physician by way of shared medical record or letter via US mail. In message to Hematology patient reported rather intense sciatica with lower back pain, weakened leg muscles, pain and numbness in my legs, ankles and feet. It is hard to get going in the mornings because of pain and leg weakness. Pt reports R=L midline low back pain. Current pain since <1 year, worsening over last 1 month. Denies trauma preceding back pain onset. He did have back pain in 2020 which was evaluated by [facility], and improved significantly with PT. In 1994, he slipped on ice, landed on back, had back pain which resolved with L5-S1 fusion. Since last 2 months, has had pain with radiation to lateral thighs, anterior knees, anterior shins to ankles. Pain behind knees when knees are flexed too long, like in back seat of a car. Back pain is worse in the AM and when Alexander wears off. He has chronic b/l hand and foot numbness which he attributes to neuropathy. Using cane and walker at baseline for functional ambulation for many years due to pain in back and legs. Reports R=L LE weakness since 1 year, stable. Denies falls. Denies bowel/bladder incontinence or saddle anesthesia. The pain is currently 4/10. The pain can get to 6/10 at the highest. PAIN EVALUATION 08/01/2024 1902 08/03/2024 1340 Pain Level: 7 4 Pain Location: -- Back Description: Burning;Radiating;Sharp;Other: See comment Aching;Burning;Radiating Duration Amount of Time: 24 -- Duration Units: Hours Months Frequency: Intermittent Continuous Intervention/Comfort measure: Medication;Pillow support;Positioning -- Comments: lower back pain sciatica where I had a fusion of L5-S1 in 1995 -- Pain Radiation: As above Aggravating Factors: any movement, ambulation with worsening pain with longer ambulation, carrying >10 lbs, moving from standing to sitting Alleviating Factors: norco, laying flat in bed not moving Current Treatment: Medications Lyrica 225 mg BID- effective Meloxicam - effective for OA pain Alexander 5-325 mg PRN - most effective, takes daily Tylenol PRN - effective Therapies Acupuncture, 5 visits 2023, Jhon Salmon Ac - effective for hand CTS Prior Treatment: Medications Cymbalta - caused sweating Marijuana gummies Therapies PT: 2020, 5 visits, lumbar spine, LE numbness/tingling - effective, especially strengthening core muscles. No longer doing HEP. Prior spine interventions: None Prior spine surgery: L5-S1 fusion (1995) - indicated for B/L sciatica, 100% effective, had post-op infection requiring second surgery Previously [facility]: [facility], [facility] for pain everywhere including skin, joints, tendons, muscles. Denied low back/neck pain. Discussed treatment options - comprehensive pain recovery program, ketamine infusions, nutritional program, activity program, sleep program, Namenda, low dose Naltrexone. Can seek ketamine treatment at other clinics given long [facility] waitlist. Optimize diet/exercise/sleep/physical activity. Consult to PT, start HEP. Consult Wellness clinic. Pain psychology consult. -Neuromuscular Neurology Dr. Omid Roca 02/25/22 for paresthesias. Possible SFN. No clinical signs of debilitating progressive large fiber PN. Continue Lyrica, Cymbalta. Discussed NM US for hand, EMG f/u study (cannot tolerate NEE) - unlikely to record changer given relatively benign neuro exam, f/u PRN. -Spine Medicine Juan Valentin 2020 for pain in low back, legs, feet, right shoulder, BL hands, burning in head, pain turning head, numbness feet, numbness fingers. Finished PT. Cannot have MRI apparently d/t h/o implant in right hip 1995. Prior EMG and did not want to repeat unless severe symptoms. CT myelogram discussed, but patient decided to hold off. No neurologic deficits/myelopathy. XR cervical spine with C5-6 OA, C3-4 mild instability with flexion/extension, does not explain UE symptoms. -Spine Surgery Dr. Leonard Mcgovern 2003. Last visit 2012 - BL R>L numbness/tingling ulnar forearm and ulnar 2 digits, worse with leaning on elbows, some neck pain - ulnar neuritis suspected, did not rec EMG or imaging, consider EMG if worsens. PMH: ATTR amyloidosis Lupus - follows with Rheumatology Dr. Seo, on Plaquenil OA hands/feet Neuropathy hands/feet - suspected to be SFN MARCELINA on CPAP BPH h/o cancer: Smoldering multiple myeloma (IgG lambda ) - follows with Heme/Onc - cont observation regular intervals PSH: 10 orthopedic surgeries per patient BL shoulder replacement 2 hip, Right DULCE, stainless steel implant placed in the right hip in 1995 - Patient says he was told this is not MRI compatible Carpal tunnel release BL, left side required repeat d/t amyloidosis See below YELLOW & BLUE FLAGS No-Neg Attitude; Back Pain is Disabling No-Avoiding Activity (for Fear of Pain) No-Depression or Anxiety Disorders No-Social Problems No-Substance Use Disorder No-Job Dissatisfaction No-Financial Disincentives Patient Entered Questionnaires 03/10/2021 05/25/2021 08/01/2024 Spine Questions Pain Location: Lower back Lower back Lower back Pain Duration: 1 to 5 years 1 to 5 years Pain over last 6 months: Every day or nearly every day in the past 6 months Every day or nearly every day in the past 6 months Symptoms from neck/cervical spine: No Yes Yes Employment Status: Retired Retired Involved in law suit/legal claim: No No 03/10/2021 08/01/2024 Spine Red Flags Any type of cancer: No Yes Unexplained fever: No No Bowel or bladder disfunction: No No Unintentional weight loss: No No Osteoporosis: No No 05/25/2021 08/01/2024 Neck Questionnaires Benzel Modified ELIEL Score Incomplete 8 (Severe Myelopathy Symptoms) PROMIS Score Percentiles 04/22/2024 05/22/2024 08/01/2024 Physical Health Physical Function Percentile 5 2 Sleep Percentile 18* 27* 10 Fatigue Percentile 8 8 Pain Interference Percentile 7 4 04/22/2024 05/22/2024 08/01/2024 PROMIS SOCIAL ROLE SCORE Social Role Satisfaction Percentile 34 18* 10 11/22/2023 02/11/2024 06/17/2024 PROMIS Global Health Scale Physical Health Percentile 7 7 7 Mental Health Percentile 19* 19* 34 Percentiles provide an indication of how the patient's score ranks in relation to the general population. Higher percentile rankings indicate better function/quality of life. 50th percentile is the average of the general population and indicates half of respondents had a worse score. Depression Screenin02/21/2024 06/17/2024 08/01/2024 PHQ-9 Score 9 8 11 02/21/2024 06/17/2024 08/01/2024 PHQ-9 Self-harm Question Question 9 Not at all Not at all Not at all PHQ-9 Self-Harm (Item 9) response options: 0 Not at all 1 Several days 2 More than half the days 3 Nearly every day PHQ-9 Levels: 0-4 No - mild depression 5-9 Mild depression 10-14 Moderate depression 15-19 Moderately severe depression 20-27 Severe depression ACTIVE PROBLEM LIST Thoracic Or Lumbosacral Neuritis Or Radiculitis, Unspecified Congenital Spondylolisthesis Essential Hypertension, Benign Other Seborrheic Keratosis Smoldering Myeloma Benign Neoplasm of Colon Diverticulosis of Colon (Without Mention of Hemorrhage) Internal Hemorrhoids Without Mention of Complication Hip Replacement Anxiety Adhesive Capsulitis of Shoulder Shoulder Arthritis Rotator Cuff Strain Ulnar Neuritis Primary Localized Osteoarthrosis of Shoulder Region Abnormality of Gait Shoulder Joint Replacement Status Pes Planus of Both Feet Arthritis, Midfoot Glenohumeral Arthritis Obstructive Sleep Apnea On Cpap Major Depression, Recurrent, Chronic (Hcc) Hld (Hyperlipidemia) Left Shoulder Pain Prediabetes Severe Obesity (Bmi >= 40) (Hcc) Gerd Without Esophagitis Food Allergy History of Lumbosacral Spine Surgery Numbness and Tingling of Foot Muscle Weakness Primary Osteoarthritis Involving Multiple Joints Bph With Obstruction/Lower Urinary Tract Symptoms Systemic Lupus Erythematosus ([facility]) Grade I Diastolic Dysfunction Amyloidosis, Unspecified Type (Hcc) Moderate Recurrent Major Depression ([facility]) Polyneuropathy, Unspecified PAST MEDICAL HISTORY Diagnosis Date Anxiety Dr. Belle Arthritis of both hips Benign neoplasm of colon Bipolar disorder ([facility]) Dr. Belle DDD (degenerative disc disease), lumbar Depressive disorder, not elsewhere classified Diverticulosis of colon (without mention of hemorrhage) HLD (hyperlipidemia) 06/13/2017 Hypertension Internal hemorrhoids without mention of complication Monoclonal paraproteinemia Morbid obesity ([facility]) MARCELINA (obstructive sleep apnea) 1997 BiPAP Peripheral neuropathy Prediabetes 09/11/2019 Seasonal allergies Shoulder arthritis Systemic lupus erythematosus ([facility]) 10/2021 PAST SURGICAL HISTORY Procedure Laterality Date ARTHROPLASTY TOTAL SHOULDER 04/03/2013 Right shoulder replacement ARTHRP ACETBLR/PROX FEM PROSTC AGRFT/ALGRFT 1992 Hip replacement, total RIGHT BACK SURGERY HX COLONOSCOPY FLX DX W/COLLJ SPEC WHEN PFRMD 08/11/1992 Colonoscopy COLONOSCOPY FLX DX W/COLLJ SPEC WHEN PFRMD 09/01/2018 Colonoscopy COLSC FLX W/RMVL OF TUMOR POLYP LESION SNARE TQ 06/26/2008 ESOPHAGOGASTRODUODENOSCOPY TRANSORAL DIAGNOSTIC 05/08/2020 EGD JOINT REPLACEMENT HX PAST SURGICAL HISTORY OF 1995 L5-S1 spinal fusion with pins, rods, and bolts PAST SURGICAL HISTORY OF 03/2011 Right hip revision PAST SURGICAL HISTORY OF 1970 right shoulder surgery PAST SURGICAL HISTORY OF Left 2018 shoulder replacement REVISE MEDIAN N/CARPAL TUNNEL SURG Left 01/25/2024 Left wrist, revision carpal tunnel release with neurolysis and nerve wrap. Synovial biopsy Social History Tobacco Use Smoking status: Former Current packs/day: 0.00 Average packs/day: 1 pack/day for 10.0 years (10.0 ttl pk-yrs) Types: Cigarettes Start date: 10/27/1973 Quit date: 10/27/1983 Years since quittin.7 Passive exposure: Past Smokeless tobacco: Never Vaping Use Vaping status: Never Used Substance Use Topics Alcohol use: Yes Comment: very rarely Drug use: Not Currently Comment: has tried marijuana gummies in the past for pain FAMILY HISTORY Problem Relation Age of Onset Cancer Mother skin Cancer Father KIDNEY other (Brain Tumor) Father No Known Problems Brother Cancer Sister thyroid Anesthesia Problems No Family History ALLERGIES Allergen Reactions Aspartame Swelling Pt gets burning sensation under skin Betadine [Povidone-* Rash Blister Cymbalta [Duloxetin* Other: See Comments Sweating Lisinopril Cough Cough Losartan Cough Niacin Other: See Comments Niacin-Dermid Burning pain all over Penicillins Rash Seasonal Allergies Other: See Comments GRASS POLLEN-positive skin test 09-05-13 Sudafed [Pseudoephe* Other: See Comments Difficulty swallowing, swelling of tongue & lips Tamiflu [Oseltamivi* Shortness of Breath SOB, arm pain Trazodone Shortness of Breath Ultram [Tramadol] Per patient contraindication due to wellbutrin CURRENT MEDICATIONS: amLODIPine (NORVASC) 5 mg tablet Take 1 tablet by mouth once daily. HYDROcodone-acetaminophen (NORCO) 5-325 mg per tablet Take 1 tablet by mouth every 8 hours as needed for pain for up to 30 days. pseudoephedrine HCl (PSEUDOEPHEDRINE NASAL DECON ORAL) Take by mouth. guaiFENesin (MUCINEX) 1,200 mg Ta12 Take 1 tablet by mouth two times a day. albuterol HFA (VENTOLIN HFA) 90 mcg/actuation inhaler Inhale 2 Puffs as instructed every 4 hours as needed. metFORMIN ER (GLUCOPHAGE XR) 500 mg 24 hr tablet Take one tablet daily with breakfast for 7 days, then increase to one tablet twice daily with breakfast and dinner. azelastine 0.1% nasal spray Use 1 [place] in each nostril two times a day. meloxicam (MOBIC) 15 mg tablet take 1 tablet once daily fexofenadine (ANÍBAL) 180 mg tablet Take 1 tablet by mouth once daily. pregabalin (LYRICA) 225 mg capsule Take 1 capsule by mouth two times a day for 90 days. fluticasone-salmeterol (ADVAIR DISKUS) 250-50 mcg/dose inhaler Inhale 1 Puff as instructed two times a day. tamsulosin (FLOMAX) 0.4 mg Take 1 capsule by mouth daily at bedtime. CPAP/BIPAP/OTHER Replacement autobipap 20/06 with PS of 5cmH2O DME [employer] hydrOXYchloroQUINE (PLAQUENIL) 200 mg tablet Take 1 tablet by mouth two times a day. fluticasone (FLONASE) 50 mcg/actuation nasal spray USE 2 SPRAYS IN EACH NOSTRIL ONCE DAILY metoprolol succinate ER (TOPROL XL) 25 mg 24 hr tablet Take 2 tablets by mouth once daily. guaiFENesin (MUCINEX) 600 mg 12 hr tablet Take 1,200 mg by mouth twice daily as needed for cold/allergy symptoms. fish oil/borage/flax/om3,6,9 1 (OMEGA 3-6-9 ORAL) Take by mouth. alpha lipoic acid (LIPOIC ACID ORAL) Take by mouth. ZINC ORAL Take by mouth. LYSINE ORAL Take by mouth. CPAP Continue BiPAP with new settings: @ 14/8 cm of water with humidification. No new equipment is needed. aspirin, enteric coated (ASPIRIN, ENTERIC COATED) 81 mg EC tablet Take 81 mg by mouth once daily. IRON, FERROUS SULFATE, ORAL Take by mouth once daily. ASCORBIC ACID (VITAMIN C ORAL) Take by mouth once daily. buPROPion (WELLBUTRIN) 75 mg tablet Take 150 mg by mouth twice daily. REVIEW OF SYSTEMS: 14 systems reviewed and otherwise negative unless mentioned above. OBJECTIVE: PHYSICAL EXAM BP 143/78 Pulse 60 Temp 36.1 C (97 F) (Temporal) Ht 170.2 cm (5' 7) Wt 126.7 kg (279 lb 6.4 oz) SpO2 97% BMI 43.76 kg/m VITAL SIGNS: 08/03/24 1338 BP: 143/78 Pulse: 60 Temp: 36.1 C (97 F) TempSrc: Temporal SpO2: 97% Weight: 126.7 kg (279 lb 6.4 oz) Height: 170.2 cm (5' 7) GENERAL: Well-developed, well-nourished male in no apparent distress with pleasant mood. RESP: Non-labored breathing. CV: Extremities are warm and well-perfused. SKIN: No rashes, lesions, ulceration or induration in the upper/lower extremities, trunk, or head/neck. PSYCH: Awake, alert and fully oriented. There is no evidence of cognitive or language dysfunction. Appropriate insight. Cervical Spine: Appearance: Normal appearance; no erythema or swelling. Inspection: head forward and rounded shoulders. [place] nodes R>L hands Reflexes (R/L): Biceps: 1/1 Brachioradialis: 10/03 Triceps: 10/03 Doan's sign: negative on L. Unable to test on R due to middle finger OA pain Lumbar Spine/Hip: Appearance: Normal appearance, no erythema or swelling. Spinal alignment is grossly normal. Palpation: No TTP over the paraspinal muscles, SI jts, gluteal musculature, greater trochanters. ROM: Limited ROM with flexion due to tight hamstrings. Full ROM in extension, side-bending, and rotation. Hip ROM is full without pain with internal and external rotation Hip Flex Knee Ext Ankle Dorsi EHL Ankle Plantar Right 5/5 5/5 5/5 5/5 5/5 Left 5/5 5/5 5/5 5-/5 5/5 Sensation: sensation intact to light touch throughout the lower limbs bilaterally Reflexes: Patellar reflexes (R/L): 1+ BL Achilles reflexes (R/L): Trace BL Medial hamstring (R/L): Trace BL Babinski reflex: downgoing toes No clonus Special testing: Seated slump, negative Straight leg raise, negative Elder/AKIRA, +L SIJ pain FADIR, negative Hip scour, negative [place]'s test, +L SIJ pain Facet loading, negative Posterior thigh thrust: negative. Modified Gaenslen's: +L SIJ pain. SI anterior posterior compression, +L SIJ pain FUNCTIONAL: able to stand on heels and toes with support. Balance-limited tandem gait. Data Review: All images/reports listed below were personally reviewed by me unless otherwise indicated. 08/03/24 XR lumbar: Vertebral body heights are maintained without acute fracture. Mild dextrocurvature. Mild anterolisthesis of L3 on L4. Mild retrolisthesis of L1 on L2. Grade 1/2 anterolisthesis of L5 on S1. No significant change with flexion or extension. Moderate multilevel degenerative changes with disc height loss and osteophyte formation. Facet arthropathy. Posterior fusion of L5-S1 with pedicle screws and rods. Surgical hardware is intact. Degenerative changes of SI joints. Right hip arthroplasty. 03/06/24 CT neck soft tissue with IV contrast: No neck mass or cervical lymphadenopathy by size criteria. 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 10/10/23 US wrist BL: Moderate neuritis of the median nerve, which is effaced at the transverse carpal ligament, consistent with reported patient history of carpal tunnel syndrome. 08/19/23 EMG/NCS: Extensive electrodiagnostic examination of right upper extremity and additional nerve conduction studies and needle exam of left upper extremity reveals changes most consistent with the followin.Bilateral median neuropathies at or distal to the wrists, consistent with a clinical diagnosis of carpal tunnel syndrome, severe in degree electrically, and worse on the right. Chronic motor axonal loss changes are present in the bilateral abductor pollicis brevis without acute axonal loss. 2. The needle exam is somewhat hampered by incomplete motor units evaluation due to poor muscle activation in most of the muscles due to discomfort. However, no definitive evidence of a C5-C8 cervical motor radiculopathy. 3. Normal ulnar nerve conduction studies on the right 06/03/21 XR cervical: Flexion and extension views of the cervical spine show minimal anterolisthesis of C3 on C4 with flexion. This reduces with extension. Intervertebral disc space narrowing and endplate osteophyte formation at multiple levels in the cervical spine. Facet hypertrophy at multiple levels. Prevertebral soft tissues are within normal limits. Imaged lung apices are clear. Lumbar XR (2016): Postsurgical changes with spinal rods and pedicle screws involving L5-S1. No fracture is identified. Alignment is satisfactory. Vertebral body heights are maintained. Nonsurgical disc spaces demonstrate mild narrowing at L4-5. There is some facet hypertrophy at the lower lumbar levels. EDX (LIZETH DSOUZA, 2011): Interpretation: Extensive electrodiagnostic studies of the left lower and upper extremities reveal the follow findings: 1: Left median mononeuropathy at or distal to wrist (carpal tunnel syndrome), mild in degree electrically. 2: No evidence of large fiber peripheral sensorimotor polyneuropathy, or left lumbosacral or cervical motor radiculopathy. Isolated absent medial planter sensory response and absent H-reflex can be normal in this age group. Please note isolated mild chronic motor axonal loss changes in left flexor digitrum longus is of unknown clinical signficance and intrinsic foot muscles can be normal due to wear and tear injury. 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 He reports pain since <1 year with radiation down BLE since last 2 months. Prior to this, had similar back pain in 2020, which improved significantly with PT. Pt admits to not continuing HEP prescribed at that time. On exam, radicular pain is not elicited however he does have L SIJ pain with some provocative exam maneuvers. He reports chronic neuropathy in hands and feet however sensory deficits are not appreciated on his exam today. XR lumbar spine shows intact hardware, no dynamic instability. Possible adjacent segment disease with possible BLE radicular/claudicant symptoms. 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 He reports knee pain due to OA with prolonged sitting/flexed knee which may be responsible for his anterior knee and lower leg pain. At this time recommend new course of PT. Follow up in 2 months. PLAN: 1) Imaging/Diagnostic Studies: -lumbar XR with flex/ex obtained and reviewed -Imaging reviewed as above. -Pt reports non-MRI compatible implanted hardware in right hip, unable to verify this 2) Therapy/Rehabilitation: -Start course of PT -Activities and exercise as tolerated. 3) Pharmacological Management: -No changes 4) Spine/MSK Interventions: -none at this time. 5) Consultations: -None at this time 6) Follow -up: -2 Months -Patient instructed to call/seek urgent medical care with worsening of symptoms or change of neurological status. 7) Future treatment considerations: -Lumbar CT myelogram (MRI would be preferred, but cannot confirm whether patient has a non MRI compatible metal in right hip). -Consider LESI pending imaging review if findings consistent with symptoms. Balbina Munoz DO Spine Medicine Fellow Case discussed with attending Dr. Denise Attending Note: Petersen findings confirmed. Patient examined. Discussed with the fellow and the patient. All information in the note above was confirmed by me and edited as necessary for accurate information. Plan as outlined. SIGNATURE: Bianca Denise DO PATIENT NAME: Zayda De La Vega DATE: August 03, 2024 TIME: 4:04 PM documented in this encounter [facility] 07-25-2024 Telephone encounter Note Prescription Refill Information The patient has been identified by name and date of : Yes Caregiver verified no other encounters exist for this prescription request: Yes Caregiver confirmed with patient/requestor that no other refills are due, in the near future, with this provider at this time: Yes The last office visit in the department: 02/13/2024 Does the patient have a future office visit with this provider/department: Yes Requested Prescriptions Pending Prescriptions Disp Refills amLODIPine (NORVASC) 5 mg tablet 90 tablet 3 Sig: Take 1 tablet by mouth once daily. Gaviota Metz MA July 25, 2024 2:03 PM [facility] 07-25-2024 Miscellaneous Notes Prescription Refill Information The patient has been identified by name and date of : Yes Caregiver verified no other encounters exist for this prescription request: Yes Caregiver confirmed with patient/requestor that no other refills are due, in the near future, with this provider at this time: Yes The last office visit in the department: 02/13/2024 Does the patient have a future office visit with this provider/department: Yes Requested Prescriptions Pending Prescriptions Disp Refills amLODIPine (NORVASC) 5 mg tablet 90 tablet 3 Sig: Take 1 tablet by mouth once daily. Gaviota Metz MA July 25, 2024 2:03 PM documented in this encounter [facility] 07-22-2024 Telephone encounter Note ----- Message from Abida Contreras sent at 07/10/2024 9:00 AM EDT ----- Done ----- Message ----- From: Pat Seo MD Sent: 07/09/2024 6:17 PM EDT To: Abida Gallagher; Pat Seo MD Please put patient on my ultrasound schedule for 08/08 at 920 am FU MSKUS He is aware Pat Seo MD [facility] Work Phone: 07-22-2024 Miscellaneous Notes ----- Message from Abida Contreras sent at 07/10/2024 9:00 AM EDT ----- Done ----- Message ----- From: Pat Seo MD Sent: 07/09/2024 6:17 PM EDT To: Abida Gallagher; Pat Seo MD Please put patient on my ultrasound schedule for 08/08 at 920 am FU MSK He is aware Pat Seo MD documented in this encounter [facility] 07-17-2024 History of Present illness Narrative Zayda De La Vega a 73 year old male presents to the acupuncture clinic on 07/17/24 for a follow up visit. Patient identity confirmed by name and : Yes This is the 5 visit for the patient this year It has been 2 week(s) since the last acupuncture treatment. Last treatment date: 07/03/2024 Initial Acupuncture treatment date: 05/29/2024 Chief Complaint: pain and paresthesia in upper and lower extremities, lupus, amyloidosis, and OA SUBJECTIVE Patient returns with recurrent bilateral sciatica with low back pain. Noted improving pain in hands and feet. Patient initially presented with numbness in fingers/ hands and feet, excruciating pain, describing as electrical pulse into the fingers. He also addressed his skin pain as sun burn, osteoarthritis causing pain in the feet. He retired 15 years ago, his skin began to feel as he had sunburn and that is how he started getting the initial symptoms. The symptoms at some point went away, and came back October 2019 and was diagnosed with Lupus which explained of his skin pain. His finger tips begin to hurt in the morning with numbness and fingers. 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 He has been recently diagnosed with amyloidosis. Amyloidosis was found in the wrists where he had carpal tunnel syndrome, not confirmed whether the amyloidosis confined in the wrists or moved to the heart yet. Patient also experiences sciatic type of pain in sacral region to lower leg regular basis, but not daily. 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 Lyrica and plaquenil Hydrocodone and Meloxicam with significant relief of the pain Food sensitivity: night shades vegetables (white potatoes, containing many more chemicals that people can be sensitive to, high in alkaloids), tomatoes, egg plants, and etc. PAIN ASSESSMENT: Currently experiencing pain Pain level (0 no pain at all to 10 being the worst): 5 OBJECTIVE: Visual Inspection Discoloration: none Edema: none Gait/Ambulation: slow Gamble: ok Qi/Patient vitality: ok Alert, No distress, and Cooperative Well-Groomed and Pleasant Normal Imaging reports Images on file See EPIC Images have been reviewed No TCM Tongue: -- TCM Pulse: -- ASSESSMENT Patient presents with signs and symptoms consistent with the diagnosis. Patient would benefit from acupuncture therapy to address listed deficiencies and return to PLOF. Pt was educated on symptoms, prognosis, plan of care and activity modifications. Pt verbalized understanding and agreed to begin care. TCM Pattern: Chronic bilateral low back pain with bilateral sciatica (primary encounter diagnosis) Chronic pain syndrome Numbness and tingling of foot Polyneuropathy, unspecified Systemic lupus erythematosus, unspecified sle type, unspecified organ involvement status (hcc) due to qi stagnation and blood stasis TCM Treatment Principle: regulate qi and invigorate blood to relieve pain PLAN OF CARE Counseled patient on risks of acupuncture treatment including pain, infection, bleeding, and no relief of pain. The patient was positioned comfortably. There was no evidence of infection at the site of needle insertions. Acupuncture Treatment: Treatment/Needle Set 1, Prone: Points: Ba Godfrey, SJ3, UB60, LV3, GB41, ST43 15 minutes face to face with patient for set 1 Treatment/Needle Set 2, Prone: Points: UB25, UB31, GB30, Remy Chaparro, SI joints 10 minutes face to face with patient for set 2 Norton were retained for 30 minutes # of needles inserted: 28 # of needles withdrawn: 28 Adjunct techniques used: TDP Infrared Heat Lamp- Applied to lower back Patient tolerated the procedure well. UNIVERSAL PROTOCOL / SAFETY CHECKLIST Procedure to be Performed: Acupuncture Sign In: A Moment of CARE was completed. Personnel directly involved with the procedure wore the appropriate PPE (Personal Protective Equipment). Patient/Surrogate Stated/Verified: PATIENT VERIFIED(optional for EMERGENT procedures): Patient name, Date of , Relevant allergies, and The intended procedure Time Out Communication: Intended patient and procedure match the source documents. Consent documented and matches the intended procedure. Sign Out: SIGN OUT (optional for EMERGENT procedures): All instruments, equipment, possible retained foreign bodies accounted for. Viky Gudino Provider Name: Viky Gudino 25 Total minutes face to face time spent with patient Acupuncture and Cymraes herbal therapy are not a substitute for conventional medical diagnosis and treatment. Patient agrees that either: 1. A diagnostic exam has been performed by a physician or chiropractor within the last six months regarding the condition for which they are seeking acupuncture treatment. or 2. If no diagnostic exam by a physician or chiropractor has been done within the last six months regarding the condition for which patient is seeking treatment, the Intensive Care Specialist, per [place] Law, recommends that this diagnostic exam be performed. documented in this encounter [facility] 07-17-2024 Telephone encounter Note I spoke with both Zayda and his , and they are now scheduled to see Dr. Zarate on August 07. Hilary Pendleton [facility] 07-17-2024 Miscellaneous Notes I spoke with both Zayda and his , and they are now scheduled to see Dr. Zarate on August 07. Hilary Pendleton 1st attempt. Sent mychart message Overdue for appt . Last fill The following approved medication requests have been transmitted electronically. Requested Prescriptions Signed Prescriptions Disp Refills HYDROcodone-acetaminophen (NORCO) 5-325 mg per tablet 90 tablet 0 Sig: Take 1 tablet by mouth every 8 hours as needed for pain for up to 30 days. Edinson Zarate MD Prescription Refill Information The patient has been identified by name and date of : Yes Caregiver verified no other encounters exist for this prescription request: Yes Caregiver confirmed with patient/requestor that no other refills are due, in the near future, with this provider at this time: Yes The last office visit in the department: 02/13/2024 Does the patient have a future office visit with this provider/department: Visit date not found Requested Prescriptions Pending Prescriptions Disp Refills HYDROcodone-acetaminophen (NORCO) 5-325 mg per tablet 90 tablet 0 Sig: Take 1 tablet by mouth every 8 hours as needed for pain for up to 30 days. Leydi Henao MA July 13, 2024 1:21 PM documented in this encounter [facility] 07-16-2024 Telephone encounter Note 1st attempt. Sent [employer] message [facility] 07-13-2024 Telephone encounter Note Overdue for appt . Last fill The following approved medication requests have been transmitted electronically. Requested Prescriptions Signed Prescriptions Disp Refills HYDROcodone-acetaminophen (NORCO) 5-325 mg per tablet 90 tablet 0 Sig: Take 1 tablet by mouth every 8 hours as needed for pain for up to 30 days. Edinson Zarate MD [facility] 07-13-2024 Telephone encounter Note Prescription Refill Information The patient has been identified by name and date of : Yes Caregiver verified no other encounters exist for this prescription request: Yes Caregiver confirmed with patient/requestor that no other refills are due, in the near future, with this provider at this time: Yes The last office visit in the department: 02/13/2024 Does the patient have a future office visit with this provider/department: Visit date not found Requested Prescriptions Pending Prescriptions Disp Refills HYDROcodone-acetaminophen (NORCO) 5-325 mg per tablet 90 tablet 0 Sig: Take 1 tablet by mouth every 8 hours as needed for pain for up to 30 days. Leydi Henao MA July 13, 2024 1:21 PM T [facility] 07-09-2024 History of Present illness Narrative [facility] Medical Nutrition Therapy Visit Type: In-Person (Face to Face): Patient states reason for visit: Prediabetes and Weight Management Initial DEMOGRAPHICS: Co-Morbidities: PAST MEDICAL HISTORY Diagnosis Date Anxiety Dr. Belle Arthritis of both hips Benign neoplasm of colon Bipolar disorder (HCC) Dr. Belle DDD (degenerative disc disease), lumbar Depressive disorder, not elsewhere classified Diverticulosis of colon (without mention of hemorrhage) HLD (hyperlipidemia) 06/13/2017 Hypertension Internal hemorrhoids without mention of complication Monoclonal paraproteinemia Morbid obesity (HCC) MARCELINA (obstructive sleep apnea) 1998 BiPAP Peripheral neuropathy Prediabetes 09/11/2019 Seasonal allergies Shoulder arthritis Systemic lupus erythematosus (HCC) 10/2021 Activity: Do you do a regular exercise routine? No structured exercise Limited mobility, chronic pain- osteoarthritis, hx DDD s/p lumbar fusion and hx shoulder surgery Currently undergoing acupuncture for pain management. Symptoms: Patient's symptoms are as follows: Weight Concerns: difficulty losing weight How many hours of sleep on average? Irregular, sporadic, typically sleeping 4-5 hours - MARCELINA, bipap - Will wake up in pain and stay up for a few hours at a time. Diet History: Breakfast (within 2 hours): coffee (half caff coffee) first, banana, OR bagel, OR Protein Bar (RX) Lunch (12-1P): salad (4x/week) w/ grilled chicken, OR [place], OR bagel, OR piece of fruit Snack (4P): candy bar, or protein bar, or glass of [place] milk, or Tostitos, or Fruit, or Bagel Dinner (5:30-6P): Grilled chicken/Lean hamburger/ pork chop/ turkey/roast beef w/ vegetable (salad) and sweet potato w/ fruit Snack (begin at 7P): bowl of peanut M&M's, bowl of Tostitos, 1/2 a bowl of cashew nuts Fluids Water, decaf coffee, carbonated beverages, cranberry juice (24 ounces), diet pop (2 cans per day w/ Splenda) Dining/eating out? Rare ([employer] 1x/month) Allergies: No aspartame Patient / Provider Comments: Jordyn present for patient appointment. - Previous Weight Loss Attempts: WW (1969's followed and lost 70 lbs), The Body Type Diet book by Dr. Saucedo ( followed, lost 60 lbs), exercise, [facility] - Attributes success on WW and Body Type Diet book to having simple and nutritious food options that were easy to follow. - States My problem is if I have a substantial dinner I am still hungry again at 7p and am snacking a lot. I feel I eat emotionally in the evening. - Feelings cravings specifically for CHO's. - Recent A1C 5.8% February 2024. - Currently taking Metformin ER (started 1 week ago, up to taking 500 mg 2x/day) - Relates has struggled with weight since age of 31 years old. - Hx of coughing episodes suspects may be related to GERD found that by cutting out dairy reduced s/s of coughing. - Relates no longer eating night shade vegetables d/t pain. Reports when consumes night shade vegetables feels a burning sensation under his skin. Medications: Current Outpatient Medications Medication Sig pseudoephedrine HCl (PSEUDOEPHEDRINE NASAL DECON ORAL) Take by mouth. guaiFENesin (MUCINEX) 1,200 mg Ta12 Take 1 tablet by mouth two times a day. albuterol HFA (VENTOLIN HFA) 90 mcg/actuation inhaler Inhale 2 Puffs as instructed every 4 hours as needed. metFORMIN ER (GLUCOPHAGE XR) 500 mg 24 hr tablet Take one tablet daily with breakfast for 7 days, then increase to one tablet twice daily with breakfast and dinner. azelastine 0.1% nasal spray Use 1 [place] in each nostril two times a day. meloxicam (MOBIC) 15 mg tablet take 1 tablet once daily fexofenadine (ANÍBAL) 180 mg tablet Take 1 tablet by mouth once daily. pregabalin (LYRICA) 225 mg capsule Take 1 capsule by mouth two times a day for 90 days. fluticasone-salmeterol (ADVAIR DISKUS) 250-50 mcg/dose inhaler Inhale 1 Puff as instructed two times a day. tamsulosin (FLOMAX) 0.4 mg Take 1 capsule by mouth daily at bedtime. CPAP/BIPAP/OTHER Replacement autobipap 20/06 with PS of 5cmH2O DME [employer] hydrOXYchloroQUINE (PLAQUENIL) 200 mg tablet Take 1 tablet by mouth two times a day. fluticasone (FLONASE) 50 mcg/actuation nasal spray USE 2 SPRAYS IN EACH NOSTRIL ONCE DAILY amLODIPine (NORVASC) 5 mg tablet Take 1 tablet by mouth once daily. metoprolol succinate ER (TOPROL XL) 25 mg 24 hr tablet Take 2 tablets by mouth once daily. guaiFENesin (MUCINEX) 600 mg 12 hr tablet Take 1,200 mg by mouth twice daily as needed for cold/allergy symptoms. fish oil/borage/flax/om3,6,9 1 (OMEGA 3-6-9 ORAL) Take by mouth. alpha lipoic acid (LIPOIC ACID ORAL) Take by mouth. ZINC ORAL Take by mouth. LYSINE ORAL Take by mouth. CPAP Continue BiPAP with new settings: @ 14/8 cm of water with humidification. No new equipment is needed. aspirin, enteric coated (ASPIRIN, ENTERIC COATED) 81 mg EC tablet Take 81 mg by mouth once daily. IRON, FERROUS SULFATE, ORAL Take by mouth once daily. ASCORBIC ACID (VITAMIN C ORAL) Take by mouth once daily. buPROPion (WELLBUTRIN) 75 mg tablet Take 150 mg by mouth twice daily. No current facility-administered medications for this visit. Labs: Lab Results Component Value Date HBA1C 5.8 02/06/2024 HBA1C 5.6 02/08/2023 HBA1C 5.8 05/06/2021 HBA1C 5.9 02/07/2021 HBA1C 5.7 03/25/2020 HBA1C 6.1 09/08/2019 Cholesterol, Total Date Value Ref Range Status 02/06/2024 139 <200 mg/dL Final Comment: <200 mg/dL, Desirable 200-239 mg/dL, Borderline high >239 mg/dL, High HDL Cholesterol Date Value Ref Range Status 02/06/2024 28 (L) >39 mg/dL Final Comment: 40-59 mg/dL, Acceptable >59 mg/dL, High: Negative risk factor for coronary heart disease <40 mg/dL, Low: Positive risk factor for coronary heart disease LDL Cholesterol Date Value Ref Range Status 02/06/2024 76 <100 mg/dL Final Comment: <100 mg/dL, Optimal 100-129 mg/dL, Near optimal/above optimal 130-159 mg/dL, Borderline high 160-189 mg/dL, High >189 mg/dL, Very high Secondary prevention optimal LDL Cholesterol levels are recommended to be < 70 mg/dL Triglyceride Date Value Ref Range Status 02/06/2024 177 (H) <150 mg/dL Final Comment: <150 mg/dL, Normal 150-199 mg/dL, Borderline high 200-499 mg/dL, High >499 mg/dL, Very high Glucose (mg/dL) Date Value 02/13/2024 110 07/15/2021 106 Potassium (mmol/L) Date Value 02/13/2024 4.9 07/15/2021 4.4 Sodium (mmol/L) Date Value 02/13/2024 139 07/15/2021 135 Chloride (mmol/L) Date Value 02/13/2024 104 07/15/2021 101 CO2 (mmol/L) Date Value 02/13/2024 22 07/15/2021 25 Creatinine (mg/dL) Date Value 02/13/2024 0.79 07/15/2021 0.80 BUN (mg/dL) Date Value 02/13/2024 18 07/15/2021 14 Anion Gap (mmol/L) Date Value 02/13/2024 13 07/15/2021 9 Calcium (mg/dL) Date Value 07/15/2021 9.6 Calcium, Total (mg/dL) Date Value 02/13/2024 9.0 Protein, Total (g/dL) Date Value 02/13/2024 6.6 02/13/2024 6.6 07/15/2021 6.9 07/15/2021 6.9 Albumin (g/dL) Date Value 02/13/2024 4.1 07/15/2021 4.1 Bilirubin, Total (mg/dL) Date Value 02/13/2024 0.3 07/15/2021 0.3 Alkaline Phosphatase (U/L) Date Value 02/13/2024 68 07/15/2021 50 AST (U/L) Date Value 02/13/2024 16 07/15/2021 21 ALT (U/L) Date Value 02/13/2024 22 07/15/2021 29 ANTHROPOMETRICS Height: Last 1 Encounter Ht Readings: Date: Ht: 06/29/2024 171 cm (5' 7.32) Current weight: Last 3 Encounter Wt Readings: Date: Wt: 07/02/2024 129.6 kg (285 lb 11.5 oz) 06/29/2024 130.2 kg (287 lb) 06/28/2024 130.6 kg (287 lb 13 oz) BMI: 44.32 kg/m2 5% -10% Weight loss: 14-28 lbs Last Wt 07/02/24 : 129.6 kg (285 lb 11.5 oz) 5% weight loss = 271 lbs, 10% weight loss = 257 lbs [place] body weight: 66.8 kg (147 lb 5.8 oz) Adjusted ideal body weight: 91.9 kg (202 lb 11.3 oz) READINESS TO LEARN Cognitive ability: Alert and oriented Motivation to learn: Interested Family support: High - Very involved in pt care Instruction provided to: Patient and Spouse Patient learns best by: Multiple Methods Factors affecting learning: None Physical limitations affecting learning: None Stage of Change: Preparation Nutrition Diagnosis: Food and nutrition related knowledge deficit, related to; lack of prior exposure to information , as evidenced by client has no prior knowledge of need for food and nutrition - related information Calories Needed for Current Weight: Resting Metabolic Rate: 1998 Nutrition Intervention: Discussed the following nutrition topics today at the appointment: --importance of adequate caloric consumption for healthy metabolism. -- Encouraged establishing meals consistency; regularly consume 3 meals per day and snacks as needed. -- Space meals and/or snacks a part by 3-5 hours. --Plate Method: at least 1/2 plate filled with low carb vegetables, 1/4 plate with a protein food that is not fried, 1/4 plate high fiber starch/carb -- encourage consuming at least 2 food groups at snacks and 3 food groups at meals and include 2 food groups at snack. --carbohydrate and protein sources and effect on weight management, blood sugar regulation and metabolism --concepts of the Mediterranean diet for healthy carb choices --reviewed a sample carb controlled Mediterranean style menu --benefits of fiber in foods and effect on satiety. --food label reading for serving size, total fat, total carbohydrate, and protein. --portion sizes for commonly eaten carbohydrate foods --importance of including healthy fats such as olive oil, avocado, nuts and fish --Consider keeping carbohydrate to at each meal to 45-60 grams and 15 grams at snack. -- Consider consuming at least 4-5 ounces protein at meals and 1 ounce at snack. --discussed mindful eating practices and hunger/fullness scale --Encouraged increased water/fluid consumption to promote healthy hydration to decrease food cravings. Exercise: --Recommended light exercise as tolerated given pt signs and symptoms of pain. --Discussed exercise physiologists available to patient to assist with helping pt establish exercise routine. Recommended if pt is interested to reach out to their referring provider for a referral endocrinology finisher accordion services. Sleep: Importance of proper sleep habits and stages for improved metabolism and hormone regulation. Education Materials: Thriving with the Mediterranean Lifestyle Nutrition Monitoring & Evaluation: Dietitian Goals: Weight Reduction of 5-10% within 6 months Criteria: Weight Patient Stated Goals at today's visit: At snacks pair CHO with protein or healthy fat source. Adherence Potential to Goals: Good Need for Follow up: TBD Referred by: Nnamdi Mejia APRN.DISTRICT [employer]OURCE OFFICER Danette Hanson RD Consult Billing Type/Increments: Initial Assessment/15 minutes, 4 increment(s), 60 minutes Start time: 14:08 End time: 15:15 My final report will be communicated back to the requesting physician by way of shared medical record. Signed by: Danette Hanson RD documented in this encounter [facility] 07-03-2024 History of Present illness Narrative Zayda De La Vega a 73 year old male presents to the acupuncture clinic on 07/03/24 for a follow up visit. Patient identity confirmed by name and : Yes This is the 4 visit for the patient this year It has been 1 week(s) since the last acupuncture treatment. Last treatment date: 06/26/2024 Initial Acupuncture treatment date: 05/29/2024 Chief Complaint: pain and paresthesia in upper and lower extremities, lupus, amyloidosis, and OA SUBJECTIVE Patient returns with recurrent bilateral sciatica with low back pain. Noted improving pain in hands and feet. Patient initially presented with numbness in fingers/ hands and feet, excruciating pain, describing as electrical pulse into the fingers. He also addressed his skin pain as sun burn, osteoarthritis causing pain in the feet. He retired 15 years ago, his skin began to feel as he had sunburn and that is how he started getting the initial symptoms. The symptoms at some point went away, and came back October 2019 and was diagnosed with Lupus which explained of his skin pain. His finger tips begin to hurt in the morning with numbness and fingers. 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 He has been recently diagnosed with amyloidosis. Amyloidosis was found in the wrists where he had carpal tunnel syndrome, not confirmed whether the amyloidosis confined in the wrists or moved to the heart yet. Patient also experiences sciatic type of pain in sacral region to lower leg regular basis, but not daily. 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 Lyrica and plaquenil Hydrocodone and Meloxicam with significant relief of the pain Food sensitivity: night shades vegetables (white potatoes, containing many more chemicals that people can be sensitive to, high in alkaloids), tomatoes, egg plants, and etc. PAIN ASSESSMENT: Currently experiencing pain Pain level (0 no pain at all to 10 being the worst): 5 OBJECTIVE: Visual Inspection Discoloration: none Edema: none Gait/Ambulation: slow Gamble: ok Qi/Patient vitality: ok Alert, No distress, and Cooperative Well-Groomed and Pleasant Normal Imaging reports Images on file See EPIC Images have been reviewed No TCM Tongue: -- TCM Pulse: -- ASSESSMENT Patient presents with signs and symptoms consistent with the diagnosis. Patient would benefit from acupuncture therapy to address listed deficiencies and return to PLOF. Pt was educated on symptoms, prognosis, plan of care and activity modifications. Pt verbalized understanding and agreed to begin care. TCM Pattern: Chronic bilateral low back pain with bilateral sciatica (primary encounter diagnosis) Chronic pain syndrome Numbness and tingling of foot Polyneuropathy, unspecified Systemic lupus erythematosus, unspecified sle type, unspecified organ involvement status (hcc) due to qi stagnation and blood stasis TCM Treatment Principle: regulate qi and invigorate blood to relieve pain PLAN OF CARE Counseled patient on risks of acupuncture treatment including pain, infection, bleeding, and no relief of pain. The patient was positioned comfortably. There was no evidence of infection at the site of needle insertions. Acupuncture Treatment: Treatment/Needle Set 1, Prone: Points: Ba Godfrey, SJ3, UB60, LV3, GB41, ST43 15 minutes face to face with patient for set 1 Treatment/Needle Set 2, Prone: Points: UB25, UB31, GB30, Remy [place], SI joints 10 minutes face to face with patient for set 2 [place] were retained for 30 minutes # of needles inserted: 28 # of needles withdrawn: 28 Adjunct techniques used: TDP Infrared Heat Lamp- Applied to lower back Patient tolerated the procedure well. UNIVERSAL PROTOCOL / SAFETY CHECKLIST Procedure to be Performed: Acupuncture Sign In: A Moment of CARE was completed. Personnel directly involved with the procedure wore the appropriate PPE (Personal Protective Equipment). Patient/Surrogate Stated/Verified: PATIENT VERIFIED(optional for EMERGENT procedures): Patient name, Date of , Relevant allergies, and The intended procedure Time Out Communication: Intended patient and procedure match the source documents. Consent documented and matches the intended procedure. Sign Out: SIGN OUT (optional for EMERGENT procedures): All instruments, equipment, possible retained foreign bodies accounted for. Viky Gudino Provider Name: Viky Gudino 25 Total minutes face to face time spent with patient Acupuncture and [place]ym[place]es herbal therapy are not a substitute for conventional medical diagnosis and treatment. Patient agrees that either: 1. A diagnostic exam has been performed by a physician or chiropractor within the last six months regarding the condition for which they are seeking acupuncture treatment. or 2. If no diagnostic exam by a physician or chiropractor has been done within the last six months regarding the condition for which patient is seeking treatment, the Intensive Care Specialist, per [place] Law, recommends that this diagnostic exam be performed. documented in this encounter [facility] 07-02-2024 History of Present illness Narrative Images from the original note were not included. [facility] ESTABLISHED PATIENT OFFICE VISIT HISTORY OF PRESENT ILLNESS: Zayda De La Vega is a 73 year old male who presents today for follow-up. Past medical history is also significant for Lupus, morbid obesity. Former smoker. Most recent pulmonary office visit was on 04/10/2024 with Myself Recommendations from that office visit were as follows: -Shortness of breath likely multifactorial from covid and morbid obesity -PFTs normal will repeat next visit -Will trial advair again - benefited from it in the past -Albuterol as needed Today, the patient reports he is doing good since last office visit. He reports that the inhaler seems to help his shortness of breath. No cough, No wheezing. Denies fever, chills, night sweats, hemoptysis, chest pain, LE edema and unintentional weight loss or gain. He is currently being worked up for amyloidosis No recent ED visits or hospitalizations, steroid or antibiotic use MMRC Dyspnea Scale: 0. Not troubled by breathlessness except on strenuous exercise Short of breath when hurrying or walking up a slight hill Walks slower than contemporaries on the level because of breathlessness, or has to stop for breath when walking at own pace Stops for breath after about 100 m or after a few minutes on the level Too breathless to leave the house, or breathless when dressing or undressing ROS: REVIEW OF SYSTEMS: Constitutional: Denies malaise, fever/chills, night sweats, weight loss. HEENT: Denies headache, rhinorrhea, sore throat RESPIRATORY: See HPI, reports shortness of breath, cough, wheezing CARDIOVASCULAR: Denies chest pain, palpitations The remainder of the ROS were reviewed and negative. Current Outpatient Medications Medication Sig Dispense Refill metFORMIN ER (GLUCOPHAGE XR) 500 mg 24 hr tablet Take one tablet daily with breakfast for 7 days, then increase to one tablet twice daily with breakfast and dinner. 180 tablet 1 azelastine 0.1% nasal spray Use 1 [place] in each nostril two times a day. 90 mL 3 meloxicam (MOBIC) 15 mg tablet take 1 tablet once daily 90 tablet 1 fexofenadine (ANÍBAL) 180 mg tablet Take 1 tablet by mouth once daily. 90 tablet 3 pregabalin (LYRICA) 225 mg capsule Take 1 capsule by mouth two times a day for 90 days. 180 capsule 0 fluticasone-salmeterol (ADVAIR DISKUS) 250-50 mcg/dose inhaler Inhale 1 Puff as instructed two times a day. 60 Each 5 tamsulosin (FLOMAX) 0.4 mg Take 1 capsule by mouth daily at bedtime. 90 capsule 1 CPAP/BIPAP/OTHER Replacement autobipap 18/9 with PS of 5cmH2O DME [employer] 1 Each 0 hydrOXYchloroQUINE (PLAQUENIL) 200 mg tablet Take 1 tablet by mouth two times a day. 180 tablet 1 fluticasone (FLONASE) 50 mcg/actuation nasal spray USE 2 SPRAYS IN EACH NOSTRIL ONCE DAILY 16 g 11 amLODIPine (NORVASC) 5 mg tablet Take 1 tablet by mouth once daily. 90 tablet 3 metoprolol succinate ER (TOPROL XL) 25 mg 24 hr tablet Take 2 tablets by mouth once daily. 180 tablet 3 guaiFENesin (MUCINEX) 600 mg 12 hr tablet Take 1,200 mg by mouth twice daily as needed for cold/allergy symptoms. fish oil/borage/flax/om3,6,9 1 (OMEGA 3-6-9 ORAL) Take by mouth. alpha lipoic acid (LIPOIC ACID ORAL) Take by mouth. ZINC ORAL Take by mouth. LYSINE ORAL Take by mouth. CPAP Continue BiPAP with new settings: @ 14/8 cm of water with humidification. No new equipment is needed. 1 Device 0 aspirin, enteric coated (ASPIRIN, ENTERIC COATED) 81 mg EC tablet Take 81 mg by mouth once daily. IRON, FERROUS SULFATE, ORAL Take by mouth once daily. ASCORBIC ACID (VITAMIN C ORAL) Take by mouth once daily. buPROPion (WELLBUTRIN) 75 mg tablet Take 150 mg by mouth twice daily. No current facility-administered medications for this visit. I have reviewed and updated the medication list in the EMR. ALLERGIES Allergen Reactions Aspartame Swelling Pt gets burning sensation under skin Betadine [Povidone-* Rash Blister Cymbalta [Duloxetin* Other: See Comments Sweating Lisinopril Cough Cough Losartan Cough Niacin Other: See Comments Niacin-Dermid Burning pain all over Penicillins Rash Seasonal Allergies Other: See Comments GRASS POLLEN-positive skin test 09-05-13 Sudafed [Pseudoephe* Other: See Comments Difficulty swallowing, swelling of tongue & lips Tamiflu [Oseltamivi* Shortness of Breath SOB, arm pain Trazodone Shortness of Breath Ultram [Tramadol] Per patient contraindication due to wellbutrin IMMUNIZATIONS: Immunization History Administered Date(s) Administered COVID-19 original vaccine, booster dose, monovalent (MODERNA) 05/05/2022 COVID-19 original vaccine, full dose, monovalent (MODERNA) 11/06/2020 12/04/2020 08/05/2021 TD Adult 03/03/2004 influenza (HD-IIV3) vaccine, age 65+ yr, high dose, trivalent, PF (FLUZONE HIGH-DOSE) 07/24/2015 06/25/2016 07/18/2017 08/18/2018 07/10/2019 influenza (HD-IIV4) vaccine, age 65+ yr, high dose, quadrivalent, PF (FLUZONE HIGH-DOSE) 07/25/2020 07/11/2021 07/22/2022 influenza (IIV3) vaccine, age 6 mo - 64 yr, trivalent (AFLURIA, FLULAVAL, FLUVIRIN, FLUZONE) 08/21/2014 influenza (aIIV4) vaccine, age 65+ yr, quadrivalent, PF (FLUAD QUAD) 08/12/2023 influenza vaccine, unspecified formulation 08/02/2008 07/21/2011 07/10/2012 07/28/2013 pneumococcal conjugate (PCV13) vaccine, 13 valent (PREVNAR 13) 08/12/2015 pneumococcal polysaccharide (PPV23) vaccine, 23 valent (PNEUMOVAX 23) 08/03/2008 08/10/2008 07/01/2014 pneumococcal vaccine, unspecified formulation 08/03/2008 respiratory syncytial virus (RSV) vaccine, adjuvanted (AREXVY) 09/30/2023 tetanus diphtheria pertussis (Tdap) vaccine, age 7+ yr (ADACEL, BOOSTRIX) 09/02/2010 09/02/2010 10/02/2020 10/02/2020 zoster (RZV) vaccine, recombinant (SHINGRIX) 05/28/2022 08/05/2022 zoster (ZVL) vaccine, live (ZOSTAVAX) 08/03/2009 08/03/2009 PHYSICAL EXAMINATION: VITAL SIGNS:BP 135/79 Pulse (!) 59 Wt 129.6 kg (285 lb 11.5 oz) SpO2 97% BMI 44.32 kg/m GENERAL: Well appearing, in no apparent distress. HEENT: Sclera anicteric. no visible nasal discharge. Lips, tongue, and buccal mucosa no cyanosis or erythema. CV: Regular rate and rhythm. no LE edema. PULM: Unlabored breathing, no use of accessory muscles, lung sounds are clear bilaterally. MSK: Extremities warm and well perfused. no cyanosis. NEURO: A&O x 3. Answers questions appropriately. PSYCH: Mood and affect appropriate for situation. DATA REVIEW: I have personally reviewed the following: Spirometry - 06/29/2024: IMPRESSION: Spirometry is normal. The diffusion capacity (uncorrected for hemoglobin) is normal. Allison - 09/24/2022: IMPRESSION: Spirometry shows no obstruction.The reduced FVC suggests restriction. Recommend lung volumes if clinically indicated. The TLC is reduced indicating mild restriction. The presence of a reduced lung diffusion capacity - that normalizes when measured independent of alveolar volume (kCO) is consistent with a nonparenchymal disorder but does not rule out parenchymal or pulmonary vascular disorder. Maximum inspiratory and expiratory pressures are normal. ASSESSMENT & PLAN: ASSESSMENT/PLAN: 1. Shortness of breath - ICD9: 786.05, ICD10: R06.02 (primary diagnosis) 2. Post-COVID chronic dyspnea - ICD9: 786.09, 139.8, ICD10: R06.09, U09.9 3. Morbid obesity with body mass index (BMI) of 40.0 to 44.9 in adult (HCC) - ICD9: 278.01, V85.41, ICD10: E66.01, Z68.41 -Shortness of breath likely multifactorial from covid and morbid obesity -PFTs normal -Continue advair -Continue mucinex -Albuterol as needed 4. Obstructive sleep apnea on CPAP - ICD9: 327.23, ICD10: G47.33 -Is using nightly and benefiting from therapy 5. GERD without esophagitis - ICD9: 530.81, ICD10: K21.9 -Continue PPI -Helping with cough 6. Systemic lupus erythematosus, unspecified SLE type, unspecified organ involvement status (HCC) - ICD9: 710.0, ICD10: M32.9 -Following with rheumatology 7. Smoldering myeloma -Newly diagnosed I have discussed the above recommendations in detail with the patient. Patient verbalizes understanding and is in agreement with plan as stated above. Adilia Auguste APRN-EDOUARD Medical Decision Making: Problems: Moderate: 2+ stable chronic illnesses Data: Unique test result(s) reviewed: 3+ Risk: Moderate: Drug management Medical Decision Making Level: 4 - Moderate documented in this encounter [facility] 06-30-2024 Telephone encounter Note Reviewed case with Heme. They did not want me to see him back for his amyloid, but for his joint pains. Will work to get him in. message to patient. Pat Seo MD [facility] Work Phone: 06-30-2024 Miscellaneous Notes Reviewed case with Heme. They did not want me to see him back for his amyloid, but for his joint pains. Will work to get him in. message to patient. Pat Seo MD documented in this encounter [facility] 06-29-2024 Telephone encounter Note I spoke with Zayda De La Vega as outlined below. Zayda De La Vega expressed desire to proceed with additional genetic testing for aortic disease. I will communicate those results and our screening recommendations for family members when I have the additional results. [facility] Work Phone: 06-29-2024 Miscellaneous Notes I spoke with Zayda De La Vega as outlined below. Zayda De La Vega expressed desire to proceed with additional genetic testing for aortic disease. I will communicate those results and our screening recommendations for family members when I have the additional results. I left a message for Zayda De La Vega to call me back. Negative TTR, means wild type amyloidosis. Can reflex to aortopathy genes at no cost if interested, low chance to find a known genetic factor, given age and no known family history. documented in this encounter [facility] 06-29-2024 Telephone encounter Note I left a message for Zayda De La Vega to call me back. Negative TTR, means wild type amyloidosis. Can reflex to aortopathy genes at no cost if interested, low chance to find a known genetic factor, given age and no known family history. [facility] 06-29-2024 Procedure note Associated Ord er(s): OXIMETRY WITH AMBULATION RESPIRATORY THERAPY OXIMETRY WITH AMBULATION Oximetry with Ambulation Test for This Encounter O2 Device O2 Adapter NC O2 Flow SpO2% HR Activity Ft Walked (ft) Time (min) Avg Speed (MPH) R/A 93 60 Resting R/A 91 93 Walking, usual pace 360 3 1.36 R/A 90 94 Walking, fastest pace 400 3 1.52 General Information Pulse Oximetry Site Total Time Spent Walking Assistance/O2 Supply Carrier L Index Finger 30 None NAME: ESTEFANY Whitaker PATIENT NAME: Zayda De La Vega DATE: June 29, 2024 TIME: 11:13 AM Comment: [facility] 06-29-2024 Procedure note Associated Ord er(s): OXIMETRY WITH AMBULATION RESPIRATORY THERAPY OXIMETRY WITH AMBULATION Oximetry with Ambulation Test for This Encounter O2 Device O2 Adapter NC O2 Flow SpO2% HR Activity Ft Walked (ft) Time (min) Avg Speed (MPH) R/A 93 60 Resting R/A 91 93 Walking, usual pace 360 3 1.36 R/A 90 94 Walking, fastest pace 400 3 1.52 General Information Pulse Oximetry Site Total Time Spent Walking Assistance/O2 Supply Carrier L Index Finger 30 None NAME: ESTEFANY Whitaker PATIENT NAME: Zayda De La Vega DATE: June 29, 2024 TIME: 11:13 AM Comment: documented in this encounter [facility] 06-29-2024 History of Present illness Narrative PULM FUNCTION: Provider: Adilia Auguste APRN.DISTRICT RESOURCE OFFICER Assisting Tech: Abida Jack RPFT Spirometry: 1 DLCO: 1 Oximetry - Ambulation: 1 documented in this encounter [facility] 06-28-2024 History of Present illness Narrative Images from the original note were not included. [facility] NEW PATIENT VISIT HISTORY OF PRESENT ILLNESS: Patient is 73 year old year old male with a history of obesity class 3, prediabetes, HTN, HLD, grade 1 diastolic dysfunction, MARCELINA, GERD, BPH, smoldering myeloma (follows w/ Hem-Onc), amyloidosis (follows w/ Genetics), SLE (follows w/ Rhem), OA, anxiety and depression presenting as a new patient to me for weight management. Referred by: Philippe Dawson CNP PCP: Edinson Zarate MD Consultation requested for an opinion regarding weight management and my final recommendations will be communicated back to the requesting physician by way of shared medical record or letter via US mail. Weight history: Struggled with weight since age 3 Previous attempts at weight loss: WW, The Body Type Diet book, exercise, [facility] Most weight lost: 70 lbs with WW in and The Body Type Diet in Weight at end of high school: 180 lbs Maximum weight: 290 lbs Current weight: 287 lbs Patient goal or motivation for weight loss: curb hunger Weight graph: Factors associated with weight gain: Family history of overweight: grandmothers, father, brother Weight gain associated with or menopause: n/a Tobacco use: quit 1979 Weight gain associated with shift work: no Poor quality, unrestful sleep: yes Medications that may be associated with weight gain: Lyrica Diet: 24 hour recall: B: bagel with butter L: sandwich, fruit, small salad, tortilla chips D: grilled chicken, fruit, bread Sn: salted cashews, peanut M&M's Beverages: coffee, water, diet soda Sugar-containing beverages: only diet or sugar-free EtOH: rarely Eating out/take out: at most 4 meals per week Feel hungry frequently: yes Takes more food than average to feel full: yes Feels hungry quickly after eating a meal: yes Eat when not hungry (boredom, stress/emotional): yes Frequent cravings or preoccupation with food: thinks about food all the time, salty crunchy foods Frequently overeating or binge eating: overeats, binges 1-2 times per month Portion control: larger Late night or middle of night eating: snacks at night Exercise/activity level: No structured exercise Limited mobility, chronic pain S/p lumbar fusion, shoulder surgery Sleep: Averages 4-5 hours per night Restless all night d/t chronic pain Has difficulty falling and staying asleep Does not feel rested upon waking MARCELINA: mild MARCELINA per PSG 02/20/24 CPAP: using nightly Mood, stress: High stress d/t medical issues Mood is stable Social: Employment: retired Substance use: Rx opiate, medical THC Lives with Previous experience with weight loss medications: Bupropion: taking 150 mg BID for mood Naltrexone: no, would avoid while taking opiates Phentermine: no, would avoid w/ diastolic dysfunction Topiramate: no GLP-1: not covered Metformin: no Previous experience with weight loss treatments: History of bariatric surgery or interest in bariatric surgery: no Participation in a comprehensive weight management program within the last 6 months: no Medical history pertaining to weight loss medications: History of pancreatitis or gallstones: no History of kidney stones: no History of seizures or bulimia nervosa: no Current opiate use: yes, for chronic pain History of glaucoma: no History of CAD or uncontrolled HTN: no Personal/family history of MEN2, MTC: sister History of diabetic retinopathy: no Method of contraception if woman of child bearing age: n/a REVIEW OF SYSTEMS: Per HPI MEDICAL, FAMILY, and SOCIAL HISTORY: Reviewed and updated in chart. ACTIVE PROBLEM LIST Thoracic Or Lumbosacral Neuritis Or Radiculitis, Unspecified Congenital Spondylolisthesis Essential Hypertension, Benign Other Seborrheic Keratosis Smoldering Myeloma Benign Neoplasm of Colon Diverticulosis of Colon (Without Mention of Hemorrhage) Internal Hemorrhoids Without Mention of Complication Hip Replacement Anxiety Adhesive Capsulitis of Shoulder Shoulder Arthritis Rotator Cuff Strain Ulnar Neuritis Primary Localized Osteoarthrosis of Shoulder Region Abnormality of Gait Shoulder Joint Replacement Status Pes Planus of Both Feet Arthritis, Midfoot Glenohumeral Arthritis Obstructive Sleep Apnea On Cpap Major Depression, Recurrent, Chronic (Hcc) Hld (Hyperlipidemia) Left Shoulder Pain Prediabetes Morbid Obesity With Body Mass Index (Bmi) of 40.0 to 44.9 in Adult (Hcc) Gerd Without Esophagitis Food Allergy History of Lumbosacral Spine Surgery Numbness and Tingling of Foot Muscle Weakness Primary Osteoarthritis Involving Multiple Joints Bph With Obstruction/Lower Urinary Tract Symptoms Systemic Lupus Erythematosus (Hcc) Grade I Diastolic Dysfunction Amyloidosis, Unspecified Type (Hcc) Moderate Recurrent Major Depression (Hcc) Polyneuropathy, Unspecified Current Outpatient Medications on File Prior to Visit Medication Sig azelastine 0.1% nasal spray Use 1 [place] in each nostril two times a day. meloxicam (MOBIC) 15 mg tablet take 1 tablet once daily fexofenadine (ANÍBAL) 180 mg tablet Take 1 tablet by mouth once daily. pregabalin (LYRICA) 225 mg capsule Take 1 capsule by mouth two times a day for 90 days. fluticasone-salmeterol (ADVAIR DISKUS) 250-50 mcg/dose inhaler Inhale 1 Puff as instructed two times a day. tamsulosin (FLOMAX) 0.4 mg Take 1 capsule by mouth daily at bedtime. CPAP/BIPAP/OTHER Replacement autobipap 20/06 with PS of 5cmH2O DME [employer] hydrOXYchloroQUINE (PLAQUENIL) 200 mg tablet Take 1 tablet by mouth two times a day. fluticasone (FLONASE) 50 mcg/actuation nasal spray USE 2 SPRAYS IN EACH NOSTRIL ONCE DAILY amLODIPine (NORVASC) 5 mg tablet Take 1 tablet by mouth once daily. metoprolol succinate ER (TOPROL XL) 25 mg 24 hr tablet Take 2 tablets by mouth once daily. guaiFENesin (MUCINEX) 600 mg 12 hr tablet Take 1,200 mg by mouth twice daily as needed for cold/allergy symptoms. fish oil/borage/flax/om3,6,9 1 (OMEGA 3-6-9 ORAL) Take by mouth. alpha lipoic acid (LIPOIC ACID ORAL) Take by mouth. ZINC ORAL Take by mouth. LYSINE ORAL Take by mouth. CPAP Continue BiPAP with new settings: @ 14/8 cm of water with humidification. No new equipment is needed. aspirin, enteric coated (ASPIRIN, ENTERIC COATED) 81 mg EC tablet Take 81 mg by mouth once daily. IRON, FERROUS SULFATE, ORAL Take by mouth once daily. ASCORBIC ACID (VITAMIN C ORAL) Take by mouth once daily. buPROPion (WELLBUTRIN) 75 mg tablet Take 150 mg by mouth twice daily. No current facility-administered medications on file prior to visit. PHYSICAL EXAM: BP 139/72 Pulse 62 Ht 171 cm (5' 7.32) Wt 130.6 kg (287 lb 13 oz) BMI 44.65 kg/m General: well appearing Neck: supple, no LAD, no thyromegaly CV: RRR, no murmur Respiratory: breathing comfortably, symmetric chest rise, lungs are CTAB Neuro: speech and language are normal, no obvious deficits Extremities: no edema, warm and well perfused PERTINENT LABORATORY AND IMAGING: All pertinent laboratory / test results were reviewed Latest Ref Rng 01/13/2022 02/08/2023 02/06/2024 Protein, Total 6.3 - 8.0 g/dL 6.7 7.3 6.2 (L) Albumin 3.9 - 4.9 g/dL 4.1 4.4 3.8 (L) Calcium 8.5 - 10.2 mg/dL 9.2 9.8 9.1 Bilirubin, Total 0.2 - 1.3 mg/dL 0.3 0.3 0.3 Alkaline Phosphatase 38 - 113 U/L 48 56 63 AST 14 - 40 U/L 21 17 18 ALT 10 - 54 U/L 25 20 16 Glucose 74 - 99 mg/dL 108 (H) 107 (H) 111 (H) BUN 9 - 24 mg/dL 16 20 13 Creatinine 0.73 - 1.22 mg/dL 0.76 0.84 0.73 Sodium 136 - 144 mmol/L 138 134 (L) 139 Potassium 3.7 - 5.1 mmol/L 4.5 4.5 4.6 Chloride 97 - 105 mmol/L 105 101 107 (H) CO2 22 - 30 mmol/L 20 (L) 23 23 Anion Gap 9 - 18 mmol/L 13 10 9 eGFR >=60 mL/min/1.73m 95 92 95 Cholesterol, Total <200 mg/dL 171 157 139 Triglyceride <150 mg/dL 259 (H) 234 (H) 177 (H) HDL Cholesterol >39 mg/dL 30 (L) 32 (L) 28 (L) Non HDL Cholesterol <130 mg/dL 141 (H) 125 111 Fasting Time hrs 12 11 12 VLDL Cholesterol <30 mg/dL 52 (H) 47 (H) 35 (H) TC:HDL Ratio <5.10 5.70 (H) 4.91 4.96 LDL Cholesterol <100 mg/dL 89 78 76 LDL:HDL Ratio <2.54 2.97 (H) 2.44 2.71 (H) Hemoglobin A1C 4.3 - 5.6 % 5.6 5.8 (H) Estimated Average Glucose mg/dL 114 120 Legend: (H) High (L) Low ASSESSMENT: (R73.03) Prediabetes (primary encounter diagnosis) (E66.01) Severe obesity (BMI >= 40) (HCC) (Z68.41) BMI 40.0-44.9, adult (HCC) (I10) Essential hypertension, benign (E78.2) Mixed hyperlipidemia (I51.89) Grade I diastolic dysfunction (G47.33) Obstructive sleep apnea on CPAP (K21.9) GERD without esophagitis (D47.2) 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 Patient has a BMI of 44.65 that is consistent with OBESITY CLASS 3. - Patient tried different weight loss modalities in the past including WW, The Body Type Diet book, exercise, [facility]. - Pertinent co-morbidities of obesity include prediabetes, HTN, HLD, grade 1 diastolic dysfunction, MARCELINA, GERD, BPH, smoldering myeloma (follows w/ Hem-Onc), amyloidosis (follows w/ Genetics), SLE (follows w/ Rhem), OA, anxiety and depression. - Patient's health and quality of life are compromised due to current weight and patient is motivated for weight loss. Our goal is to treat obesity to decrease long-term medical complications, comorbidities and improve lifestyle. PLAN: - Reviewed principles of energy metabolism, caloric intake and expenditure - Goals: -- 5-10% weight loss over 6 months is reasonable -- At least 6-month commitment to losing weight - Diet: overall balanced, snacks at night -- Will refer to [facility] dietitian to discuss nutrition and identify the best approach and the individualized nutritional plan--low-carb Mediterranean -- Portion control -- No skipping meals to avoid severe hunger, which can contribute to larger portions, overeating, less healthy dietary choices, etc. - Pharmacotherapy: -- I have reviewed with the patient the possibility of using weight loss medications and the various options available. -- Recommend starting metformin ER to titrate to 500 mg twice daily. Discussed r/b/a of medication. -- Reviewed that there are no contraindications to the above medications; discussed expectations and common side effects of the prescribed medications. -- Reviewed that is not recommended while taking weight loss medications. -- Exercise: no structured exercise, limited by chronic pain -- Discussed basic exercise recommendations, the role of exercise on weight loss and maintenance. Discussed the combination of aerobic and resistance exercise. -- Most patients benefit from a personalized exercise program. Will refer to [facility] finisher accordion. -- Recommend gradual increase in exercise. Goal is 150 minutes moderate-intensity exercise per week + strength training/resistance exercise 2 days per week. -- Sleep: h/o MARCELINA, using CPAP nightly, interrupted by pain -- Discussed the importance of sleep hygiene -- Recommend 7-8 hours sleep per night -- CPAP nightly -- Behavioral: -- Discussed the effect of stress and its relationship with weight gain. Stress management is very important. -- Self monitoring: suggest home weigh-ins at least 1x/week, food journals / trackers (Food log, [employer] Fitness Pal), activity journals / trackers ([employer] watch, Sport [employer] Bit, [email or web address] vivofit, Striiv). Orders placed: Orders Placed This Encounter ENDOCRINE EXERCISE PROGRAM Standing Status: Future Standing Expiration Date: 06/28/2025 Order Specific Question: Does consulting provider have [facility] Epic access? Answer: Yes ENDOCRINOLOGY DIETITIAN VISIT (MNT) Standing Status: Future Standing Expiration Date: 06/28/2025 Scheduling Instructions: Appointment type requested: General nutrition education (ie: celiac disease, PCOS, Low fat, Other) and Mediterranean - low carb This order is valid for 12 months from the date of order. PLEASE SCHEDULE THIS VISIT IN YOUR [facility] ACCOUNT, OR CALL TO SCHEDULE FOLLOWS: [facility] [phone] ALL OTHER [facility] LOCATIONS [phone] Order Specific Question: Does consulting provider have [facility] Epic access? Answer: Yes metFORMIN ER (GLUCOPHAGE XR) 500 mg 24 hr tablet Sig: Take one tablet daily with breakfast for 7 days, then increase to one tablet twice daily with breakfast and dinner. Dispense: 180 tablet Refill: 1 I have reviewed the ROS/Questionnaire with patient and recommend the following: Pt will follow-up with PCP for chronic health issues and preventive health screenings. All questions answered today. Follow-up in 3 months I spent a total of 50 minutes on the date of the service which included preparing to see the patient, [id number] patient care, completing clinical documentation, obtaining and/or reviewing separately obtained history, performing a medically appropriate examination, counseling and educating the patient/family/caregiver, and ordering medications, tests, or procedures. Nnamdi Mejia APRN.EDOUARD Obesity Medicine Endocrinology and Metabolism [place] [facility] documented [facility] this encounter [facility] Rehabilitation 06-28-2024 Instructions Nnamdi Mejia APRN.DISTRICT RESOURCE OFFICER - 06/28/2024 1:38 PM EDT Start metformin ER 500 mg one tablet daily with breakfast for 7 days, then increase to one tablet twice daily with breakfast and dinner. - This will help with appetite regulation, gut microbiome health, glucose absorption and insulin production. - Possible side effects of metformin include: stomach upset, belching, bloating, heartburn, indigestion, loss of appetite. General recommendations: - Weight loss medications are more effective if combined with healthy diets and routine exercise - Recommend a daily probiotic (such as Culturelle or Align, or similar) for healthy gut biome - Weigh yourself at least once per week - Recommend diet/nutrition trackers (food log, MyFitnessPal) and activity trackers (smart watch, etc) - Adequate, good quality sleep is an important part of weight management. We recommend 7-8 hours of sleep nightly and routine sleep schedules when possible. - For females of child-bearing age: it is not recommended to become while taking medications for weight loss. Please contact our office if you become . Follow-up with Slackline Operator Follow-up with Lead Rider Follow-up with me in 3 months documented in this encounter [facility] 06-28-2024 Telephone encounter Note Pt picked up form. [facility] 06-28-2024 Miscellaneous Notes Pt picked up form. documented in this encounter [facility] 06-26-2024 History of Present illness Narrative Zayda De La Vega a 73 year old male presents to the acupuncture clinic on 06/26/24 for a follow up visit. Patient identity confirmed by name and : Yes This is the 3 visit for the patient this year It has been 3 week(s) since the last acupuncture treatment. Last treatment date: 06/05/2024 Initial Acupuncture treatment date: 05/29/2024 Chief Complaint: pain and paresthesia in upper and lower extremities, Lupus, Amyloidosis, and osteoarthritis SUBJECTIVE Patient returns with recurrent bilateral sciatica with low back pain. Noted improving pain in hands and feet. Patient initially presented with numbness in fingers/ hands and feet, excruciating pain, describing as electrical pulse into the fingers. He also addressed his skin pain as sun burn, osteoarthritis causing pain in the feet. He retired 15 years ago, his skin began to feel as he had sunburn and that is how he started getting the initial symptoms. The symptoms at some point went away, and came back October 2019 and was diagnosed with Lupus which explained of his skin pain. His finger tips begin to hurt in the morning with numbness and fingers. 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 He has been recently diagnosed with amyloidosis. Amyloidosis was found in the wrists where he had carpal tunnel syndrome, not confirmed whether the amyloidosis confined in the wrists or moved to the heart yet. Patient also experiences sciatic type of pain in sacral region to lower leg regular basis, but not daily. 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 Lyrica and plaquenil Hydrocodone and Meloxicam with significant relief of the pain Food sensitivity: night shades vegetables (white potatoes, containing many more chemicals that people can be sensitive to, high in alkaloids), tomatoes, egg plants, and etc. PAIN ASSESSMENT: Currently experiencing pain Pain level (0 no pain at all to 10 being the worst): 5 OBJECTIVE: Visual Inspection Discoloration: none Edema: none Gait/Ambulation: slow Gamble: ok Qi/Patient vitality: ok Alert, No distress, and Cooperative Well-Groomed and Pleasant Normal Imaging reports Images on file See EPIC Images have been reviewed No TCM Tongue: -- TCM Pulse: -- ASSESSMENT Patient presents with signs and symptoms consistent with the diagnosis. Patient would benefit from acupuncture therapy to address listed deficiencies and return to PLOF. Pt was educated on symptoms, prognosis, plan of care and activity modifications. Pt verbalized understanding and agreed to begin care. TCM Pattern: Chronic bilateral low back pain with bilateral sciatica (primary encounter diagnosis) Chronic pain syndrome Numbness and tingling of foot Polyneuropathy, unspecified Systemic lupus erythematosus, unspecified sle type, unspecified organ involvement status (hcc) due to qi stagnation and blood stasis TCM Treatment Principle: regulate qi and invigorate blood to relieve pain PLAN OF CARE Counseled patient on risks of acupuncture treatment including pain, infection, bleeding, and no relief of pain. The patient was positioned comfortably. There was no evidence of infection at the site of needle insertions. Acupuncture Treatment: Treatment/Needle Set 1, Prone: Points: Ba Godfrey, SJ3, Hammad Uriel, UB60, LV3, GB41, ST43 15 minutes face to face with patient for set 1 Treatment/Needle Set 2, Prone: Points: UB24, UB25, UB31, GB30, Remy Chaparro, SI joints 10 minutes face to face with patient for set 2 Norton were retained for 30 minutes # of needles inserted: 32 # of needles withdrawn: 32 Adjunct techniques used: TDP Infrared Heat Lamp- Applied to lower back Patient tolerated the procedure well. UNIVERSAL PROTOCOL / SAFETY CHECKLIST Procedure to be Performed: Acupuncture Sign In: A Moment of CARE was completed. Personnel directly involved with the procedure wore the appropriate PPE (Personal Protective Equipment). Patient/Surrogate Stated/Verified: PATIENT VERIFIED(optional for EMERGENT procedures): Patient name, Date of , Relevant allergies, and The intended procedure Time Out Communication: Intended patient and procedure match the source documents. Consent documented and matches the intended procedure. Sign Out: SIGN OUT (optional for EMERGENT procedures): All instruments, equipment, possible retained foreign bodies accounted for. Viky Gudino Provider Name: Viky Gudino 25 Total minutes face to face time spent with patient Acupuncture and [place] herbal therapy are not a substitute for conventional medical diagnosis and treatment. Patient agrees that either: 1. A diagnostic exam has been performed by a physician or chiropractor within the last six months regarding the condition for which they are seeking acupuncture treatment. or 2. If no diagnostic exam by a physician or chiropractor has been done within the last six months regarding the condition for which patient is seeking treatment, the Intensive Care Specialist, per [place] Law, recommends that this diagnostic exam be performed. documented in this encounter [facility] 06-22-2024 Telephone encounter Note Spoke with patient advised Dr. Gonzales out on FMLA will not be in until end of Aug. They will ask PCP if they are unable to they will let us know to do upon her return. [facility] 06-22-2024 Miscellaneous Notes Spoke with patient advised Dr. Gonzales out on FMLA will not be in until end of Aug. They will ask PCP if they are unable to they will let us know to do upon her return. Patient requesting a prescription for a handicapped placard. His current one expires in August. Please assist. When completed, please mail to the home. Address has been verified. Please advise patient through [employer] when prescription has been sent. documented in this encounter [facility] 06-22-2024 Telephone encounter Note Patient requesting a prescription for a handicapped placard. His current one expires in August. Please assist. When completed, please mail to the home. Address has been verified. Please advise patient through [facility] when prescription has been sent. [facility] 06-18-2024 History of Present illness Narrative Images from the original note were not included. [facility] (Elements copied from Philippe Dawson note dated 05/28/22 have been reviewed and updated where appropriate, and all reflect current assessment and medical decision making during today's encounter, 06/18/2024) Zayda De La Vega is a 73 year old male patient. Reason for visit: follow up smoldering multiple myeloma, new visit for ATTR amyloidosis. My recommendations to the consult requesting physician are communicated via the shared electronic medical record or US mail. 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 Myeloma FISH panel: 1p32 (CDKN2C): Normal pattern 1q21 (CKS1B): Normal pattern +9 (CEP9): Normal pattern t(11;14)(q13;q32)(IGH/CCND1): Positive (62/100) 13q14 (RB1): Normal pattern 14q32 (IGH): Positive for IGH translocation () +15 (CEP15): Normal pattern 17p13 (TP53): Normal pattern Cytogenetics: LDH: 127 U/L (100 - 220) ISS stage: [place] Stage: Monoclonal proteins at diagnosis: Serum M-spike: 0.54 and M-Protein Concentration 2 0.51 gm/dL, Involved serum free light chains: 27.2 mg/L, Uninvolved serum free light chains: 15.6 mg/L, Urinary m-protein: g/24hrs, Urinary protein excretion: g/24hrs, Urinary albumin: % and Urinary m-protein Total immunoglobulins at diagnosis: IgG 1215 mg/dL, IgA 135 mg/dL, IgM 43 mg/dL Bone marrow plasma cell infiltration: 10-15% Systemic treatment and disease course Local treatments (radiation, surgery, kyphoplasty) Interval History Mr De La Vega presents today for follow up for IgG lambda smoldering multiple myeloma and a 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 He is accompanied by his . Ongoing skin pain, neuropathy in hands and feet. Joint pain. Foot and hand arthritic pain. Feels as if mobility is still limited by pain. History of present illness Mr. De aL Vega is a very pleasant 71 yr old male with PMHx significant for MGUS, peripheral neuropathy, osteoarthritis, essential hypertension, hyperlipidemia, who presents rheumatologic evaluation in the setting of positive PRANAY and recent diagnosis of SLE in [place] seen today for evaluation of MGUS. He is accompanied by his . Mr De La Vega confirmed description of his symptoms below as unchanged. Per Dr Seo's progress note 01/12/2022: Patient describes various symptoms that have been episodic over the past 15 years. He mainly characterizes it as fires in his ears, eyelids, shoulders, hands, legs/under the skin. Patient believes he has been recently more tired, would collapse into bed. He has been suffering from the brain fogginess and occasional muscle cramps at night. He also endorses mouth dryness. Patient has bilateral hands numbness, most notably at the fingertips for the past 10 months. He also reports stiffness in his fingers every morning, which eases up as the day goes by. In October 2021, patient's PCP had obtained an PRANAY which returned positive, and subsequently advised patient to follow with a television installer helper. In the interim, patient was visiting [place], where he met with a television installer helper, who diagnosed him with SLE based on additional lab tests including strong positive PRANAY IgG, positive antidouble-stranded DNA confirmed by crithidia, weak positive anticardiolipin IgM (per paper lab reports brought by patient). Subsequently, patient was started on: - Hydroxychloroquine 200 mg twice daily --Pregabalin 225 mg twice daily --Short course of hydrocodone-acetaminophen 3-325 as needed Patient reports feeling better overall. He would quantify it as a 35% improvement, compared to great distress in October, almost bedridden for 2 weeks. Patient denies ulcers in mouth/nose, photosensitivity, red or painful eyes, small joint pains, history of blood clots, shortness of breath, fever, weight loss, or history of any other known autoimmune disease. Of note patient has had multiple MSK surgeries including 2 shoulder repairs, 2 hip repairs, 2 back surgeries, carpal tunnel release. He considers joint pains as part of his normal life due to that Review of systems General: No fever or recent weight loss HEENT: Dry eyes, visual changes: yes, No lumps, Difficulty swallowing: yes, no enlarging tongue, no tooth aches, Dry mouth: yes Musculoskeletal: Arthralgias: yes, Myalgias: yes, Muscle weakness: yes , Joint swelling: yes, Morning Joint Stiffness: yes and Functionally limited due to pain Hematological: easy bruising Lymphatic / Immune system: Swollen glands: no Cardiovascular: Chest pain: no, Leg swelling: minimal. no palpitations. No syncope or presyncope. Pulmonary: Shortness of breath: yes, cough: no Gastrointestinal: Abdominal pain: no, Diarrhea: no, Blood in stool: no, GERD symptoms: no Genitourinary: Urine output: Good Neurological: burning skin, Headaches: no, Numbness: yes, Skin: Skin changes: no, Hair loss: no, flares burning pain intermittent PAST MEDICAL HISTORY Diagnosis Date Anxiety Dr. Belle Arthritis of both hips Benign neoplasm of colon Bipolar disorder ([facility]) Dr. Belle DDD (degenerative disc disease), lumbar Depressive disorder, not elsewhere classified Diverticulosis of colon (without mention of hemorrhage) HLD (hyperlipidemia) 06/13/2017 Hypertension Internal hemorrhoids without mention of complication Monoclonal paraproteinemia Morbid obesity ([facility]) MARCELINA (obstructive sleep apnea) 1997 BiPAP Peripheral neuropathy Prediabetes 09/11/2019 Seasonal allergies Shoulder arthritis Systemic lupus erythematosus ([facility]) 10/2021 PAST SURGICAL HISTORY Procedure Laterality Date ARTHROPLASTY TOTAL SHOULDER 04/03/2013 Right shoulder replacement ARTHRP ACETBLR/PROX FEM PROSTC AGRFT/ALGRFT 1992 Hip replacement, total RIGHT BACK SURGERY HX COLONOSCOPY FLX DX W/COLLJ SPEC WHEN PFRMD 08/11/1992 Colonoscopy COLONOSCOPY FLX DX W/COLLJ SPEC WHEN PFRMD 09/01/2018 Colonoscopy COLSC FLX W/RMVL OF TUMOR POLYP LESION SNARE TQ 06/26/2008 ESOPHAGOGASTRODUODENOSCOPY TRANSORAL DIAGNOSTIC 05/08/2020 EGD JOINT REPLACEMENT HX PAST SURGICAL HISTORY OF 1995 L5-S1 spinal fusion with pins, rods, and bolts PAST SURGICAL HISTORY OF 03/2011 Right hip revision PAST SURGICAL HISTORY OF 1970 right shoulder surgery PAST SURGICAL HISTORY OF Left 2018 shoulder replacement REVISE MEDIAN N/CARPAL TUNNEL SURG Left 01/25/2024 Left wrist, revision carpal tunnel release with neurolysis and nerve wrap. Synovial biopsy Allergies / intolerances ALLERGIES Allergen Reactions Aspartame Swelling Pt gets burning sensation under skin Betadine [Povidone-* Rash Blister Cymbalta [Duloxetin* Other: See Comments Sweating Lisinopril Cough Cough Losartan Cough Niacin Other: See Comments Niacin-Dermid Burning pain all over Penicillins Rash Seasonal Allergies Other: See Comments GRASS POLLEN-positive skin test 09-05-13 Sudafed [Pseudoephe* Other: See Comments Difficulty swallowing, swelling of tongue & lips Tamiflu [Oseltamivi* Shortness of Breath SOB, arm pain Trazodone Shortness of Breath Ultram [Tramadol] Per patient contraindication due to wellbutrin Medications azelastine 0.1% nasal spray Use 1 [place] in each nostril two times a day. meloxicam (MOBIC) 15 mg tablet take 1 tablet once daily HYDROcodone-acetaminophen (NORCO) 5-325 mg per tablet Take 1 tablet by mouth every 8 hours as needed for pain for up to 30 days. fexofenadine (ANÍBAL) 180 mg tablet Take 1 tablet by mouth once daily. pregabalin (LYRICA) 225 mg capsule Take 1 capsule by mouth two times a day for 90 days. fluticasone-salmeterol (ADVAIR DISKUS) 250-50 mcg/dose inhaler Inhale 1 Puff as instructed two times a day. tamsulosin (FLOMAX) 0.4 mg Take 1 capsule by mouth daily at bedtime. CPAP/BIPAP/OTHER Replacement autobipap 18/9 with PS of 5cmH2O DME [employer] hydrOXYchloroQUINE (PLAQUENIL) 200 mg tablet Take 1 tablet by mouth two times a day. fluticasone (FLONASE) 50 mcg/actuation nasal spray USE 2 SPRAYS IN EACH NOSTRIL ONCE DAILY amLODIPine (NORVASC) 5 mg tablet Take 1 tablet by mouth once daily. metoprolol succinate ER (TOPROL XL) 25 mg 24 hr tablet Take 2 tablets by mouth once daily. guaiFENesin (MUCINEX) 600 mg 12 hr tablet Take 1,200 mg by mouth twice daily as needed for cold/allergy symptoms. fish oil/borage/flax/om3,6,9 1 (OMEGA 3-6-9 ORAL) Take by mouth. alpha lipoic acid (LIPOIC ACID ORAL) Take by mouth. ZINC ORAL Take by mouth. LYSINE ORAL Take by mouth. CPAP Continue BiPAP with new settings: @ 14/8 cm of water with humidification. No new equipment is needed. aspirin, enteric coated (ASPIRIN, ENTERIC COATED) 81 mg EC tablet Take 81 mg by mouth once daily. IRON, FERROUS SULFATE, ORAL Take by mouth once daily. ASCORBIC ACID (VITAMIN C ORAL) Take by mouth once daily. buPROPion (WELLBUTRIN) 75 mg tablet Take 150 mg by mouth twice daily. Social History Tobacco Use Smoking status: Former Current packs/day: 0.00 Average packs/day: 1 pack/day for 10.0 years (10.0 ttl pk-yrs) Types: Cigarettes Start date: 10/27/1973 Quit date: 10/27/1983 Years since quittin.6 Smokeless tobacco: Never Vaping Use Vaping status: Never Used Substance Use Topics Alcohol use: Yes Comment: very rarely Drug use: Not Currently Comment: has tried marijuana gummies in the past for pain FAMILY HISTORY Problem Relation Age of Onset Cancer Mother skin Cancer Father KIDNEY other (Brain Tumor) Father No Known Problems Brother Cancer Sister thyroid Anesthesia Problems No Family History No heart issues. Physical examination There were no vitals taken for this visit. ECOG PS: 1- Restricted in physically strenuous activity. Carries out light duty. General appearance: Well appearing, alert, in no acute distress, well-hydrated, well nourished. HEENT: No lumps, no macroglossia, no icterus. Mucous membranes pink. Neck: Supple, no adenopathy; thyroid symmetric, normal size, no bruits Back: no pain to palpation Lungs: Lungs clear to auscultation. No wheezing, rhonchi, rales. Heart: RRR without murmur, gallop, or rubs. No ectopy Abdomen: Abdomen soft, non-tender. Bowel sounds normal. No masses, organomegaly Extremities: No deformities, edema, skin discoloration, clubbing or cyanosis. Good capillary refill. Musculoskeletal: (+) joint swelling of fingers, No deformity, or tenderness Neuro: Alert and oriented x 3. Cranial nerves 2-12 grossly intact. Motor and sensation grossly intact. Gait stable. Skin: no rashes, lesions, or jaundice Plasmacytomas: No Laboratory tests WBC (k/uL) Date Value 02/13/2024 6.69 02/06/2024 6.47 02/08/2023 8.37 07/12/2022 5.25 05/20/2022 7.07 02/25/2022 7.42 01/13/2022 5.39 07/15/2021 6.43 02/07/2021 7.60 09/08/2019 5.52 06/07/2018 5.30 06/22/2017 9.72 06/13/2017 6.44 06/30/2016 7.07 04/04/2013 9.07 03/21/2013 5.44 07/01/2011 5.13 Abs Neut (ANC) (k/uL) Date Value 07/15/2021 3.67 02/07/2021 4.50 06/07/2018 3.11 06/13/2017 3.78 06/30/2016 4.07 07/01/2011 3.08 03/11/2011 2.41 02/23/2011 3.87 Abs Neut (k/uL) Date Value 02/13/2024 3.18 02/08/2023 4.27 07/12/2022 2.72 05/20/2022 3.54 02/25/2022 4.22 Hemoglobin (g/dL) Date Value 02/13/2024 12.9 02/06/2024 12.5 02/08/2023 12.8 07/12/2022 13.2 05/20/2022 13.0 02/25/2022 13.3 01/13/2022 12.8 07/15/2021 13.3 02/07/2021 13.2 09/08/2019 13.6 06/07/2018 12.6 06/22/2017 11.6 06/13/2017 13.6 06/30/2016 13.5 04/04/2013 11.1 03/21/2013 13.0 07/01/2011 13.7 Platelet Count (k/uL) Date Value 02/13/2024 312 02/06/2024 272 02/08/2023 281 07/12/2022 267 05/20/2022 292 02/25/2022 277 01/13/2022 237 07/15/2021 259 02/07/2021 279 09/08/2019 267 06/07/2018 265 06/22/2017 232 06/13/2017 258 06/30/2016 272 04/04/2013 232 03/21/2013 257 07/01/2011 265 Glucose (mg/dL) Date Value 02/13/2024 110 02/06/2024 111 02/08/2023 107 07/12/2022 121 05/20/2022 114 02/25/2022 98 01/13/2022 108 07/15/2021 106 02/07/2021 118 03/25/2020 83 09/08/2019 121 12/08/2018 103 06/07/2018 80 07/07/2017 88 06/13/2017 87 11/02/2016 108 06/30/2016 80 Creatinine (mg/dL) Date Value 02/13/2024 0.79 02/06/2024 0.73 02/08/2023 0.84 07/12/2022 0.81 05/20/2022 0.76 02/25/2022 0.78 01/13/2022 0.76 07/15/2021 0.80 02/07/2021 0.92 03/25/2020 0.89 09/08/2019 0.82 12/08/2018 0.73 06/07/2018 0.72 07/07/2017 0.75 06/13/2017 0.64 11/02/2016 0.81 06/30/2016 0.88 Calcium (mg/dL) Date Value 07/15/2021 9.6 02/07/2021 9.6 03/25/2020 9.1 09/08/2019 9.3 12/08/2018 9.3 06/07/2018 8.7 07/07/2017 9.2 06/13/2017 9.3 11/02/2016 9.5 06/30/2016 9.2 Calcium, Total (mg/dL) Date Value 02/13/2024 9.0 02/06/2024 9.1 02/08/2023 9.8 07/12/2022 9.2 05/20/2022 9.1 02/25/2022 9.0 01/13/2022 9.2 M-Protein Concentration Date Value 02/13/2024 0.49 g/dL 02/08/2023 0.53 g/dL 07/12/2022 0.50 g/dL 05/20/2022 0.51 g/dL 02/25/2022 0.54 g/dL 01/13/2022 0.10 g/dL 07/15/2021 0.60 gm/dL 12/08/2018 0.63 gm/dL 03/28/2018 0.64 gm/dL 06/14/2014 0.56 gm/dL 08/13/2013 0.58 gm/dL 08/07/2012 0.65 gm/dL 08/10/2011 0.66 gm/dL 01/18/2011 0.60 gm/dL 08/23/2008 0.50 gm/dL M Azeem Quant, 24 Hr Urine Date Value 02/22/2024 0.00 g/24hr 03/05/2022 0.00 g/24hr 12/10/2018 0.00 gm/24 Hr [place]any Free, Serum (mg/L) Date Value 02/13/2024 15.7 02/08/2023 17.8 07/12/2022 16.1 05/20/2022 19.0 02/25/2022 15.6 01/13/2022 16.0 12/08/2018 11.8 Lambda Free, Serum (mg/L) Date Value 02/13/2024 30.2 02/08/2023 27.7 07/12/2022 28.0 05/20/2022 27.0 02/25/2022 27.2 01/13/2022 28.7 12/08/2018 32.7 MPA IgG, Serum (mg/dL) Date Value 03/28/2018 1,290 06/14/2014 1,230 08/13/2013 1,360 08/07/2012 1200 08/10/2011 1400 01/18/2011 1230 08/23/2008 1310 MPA IgA, Serum (mg/dL) Date Value 03/28/2018 114 06/14/2014 120 08/13/2013 139 08/07/2012 127 08/10/2011 151 01/18/2011 161 08/23/2008 184 MPA IgM, Serum (mg/dL) Date Value 03/28/2018 51 06/14/2014 47 08/13/2013 51 08/07/2012 47 08/10/2011 69 01/18/2011 48 08/23/2008 71 Interpretation (MPA) (no units) Date Value 02/13/2024 Atypical restricted bands are present in the IgG and lambda regions. Consistent with IgG lambda monoclonal gammopathy. 02/08/2023 Atypical restricted bands are present in the IgG and lambda regions. Consistent with IgG lambda monoclonal gammopathy. Poorly defined region of restricted mobility in the kappa milady. Pattern is less well defined or fainter than typically seen in monoclonal gammopathy. This could represent either an atypical presentation of polyclonal immunoglobulins or the presence of a low level kappa containing monoclonal gammopathy. If clinically indicated, urine monoclonal protein analysis and serum free light chain measurements are recommended to evaluate further for monoclonal gammopathy. Clinical correlation is necessary. 07/12/2022 Atypical restricted bands are present in the IgG and lambda regions. Consistent with IgG lambda monoclonal gammopathy. Poorly defined region of restricted mobility in IgA and kappa lanes. Pattern is less well defined or fainter than typically seen in monoclonal gammopathy. This could represent either and atypical presentation of polyclonal immunoglobulins or the presence of a low level IgA kappa monoclonal gammopathy. If clinically indicated, urine monoclonal protein analysis and serum free light chain measurements are recommended to evaluate further for monoclonal gammopathy. Clinical correlation is necessary. 05/20/2022 Atypical restricted bands are present in the IgG and lambda regions. Consistent with IgG lambda monoclonal gammopathy. 02/25/2022 Atypical restricted bands are present in the IgG and lambda regions. Consistent with IgG lambda monoclonal gammopathy. 03/28/2018 SEE COMMENT 06/14/2014 Atypical restricted bands are present in the IgG and lambda regions. Consistent with IgG lambda monoclonal gammopathy. 08/13/2013 Atypical restricted bands are present in the IgG and lambda regions. Consistent with IgG lambda monoclonal gammopathy. 08/07/2012 Atypical restricted bands are present in the IgG and lambda regions. Consistent with IgG lambda monoclonal gammopathy. 08/10/2011 PROTEIN ELECTROPHORESIS: An M-protein band is identified. IMMUNOFIXATION ELECTROPHORESIS: Immunofixation demonstrates abnormal homogeneous bands in the IgG and Lambda regions. INTERPRETATION: Consistent with monoclonal gammopathy, IgG Lambda type. Last skeletal imaging / date 02/25/2022 Result: IMPRESSION: NO LYTIC LESIONS IN THE VISUALIZED AXIAL AND APPENDICULAR SKELETON. 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 Continue observation at regular intervals. Will request follow up with Philippe Dawson in about a year. 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 No clinical cardiac involvement. Genetic testing pending. If there is a genetic variant, will need neurology consultation. If wild type, will follow with Dr. Siddharth Woo from cardiology service. No need for treatment of ATTR amyloidosis from a cardiac standpoint. Seen with Dr. Siddharth Woo in clinic today. Follow up Philippe Dawson in about a year for the smoldering myeloma Anurag Mejia MD CC: Dr. Pat Seo documented in this encounter [facility] 06-18-2024 History of Present illness Narrative Images from the original note were not included. Heart [facility] V[facility] [place] [facility] SECTION OF HEART FAILURE and CARDIAC TRANSPLANT MEDICINE OUTPATIENT VISIT DATE June 18, 2024 OUTPATIENT VISIT TYPE Consultation - Amyloid Clinic PRIMARY CARE PHYSICIAN: Edinson Zarate [address] [place] [address] [place] [address] CHIEF COMPLAINT: Amyloid consultation HISTORY OF PRESENT ILLNESS: 73 year old male with PMHx of HTN, HLD, aortic dilation (4.6cm aorta at the sinuses), SLE OA involving multiple joints, smoldering myeloma, BPH, GERD, MARCELINA (on CPAP), who is here for a consultation re: left carpal canal Synovium biopsy demonstrating TTR amyloidosis. Patient is here with his . Mr. De La Vega had L CTS release surgery where tenosynovium biopsy was positive for TTR. He was seen by hematology. Obtained paraprotein workup which showed abnormal serum light chains. Elevated Lambda (30), normal K, normal K/L. M protein in the serum and urine. BM biopsy showed Involvement by a lambda monotypic plasma cell neoplasm. (10-15 marrow cellularity). Presented at tumor board who stated he had smoldering myeloma. Other labs showed NT proBNP 51 (02/2024). EKG with NSR with RBBB. Echo with preserved LV and RV systolic function, no significant valvular abnormalities. Technetium-99 m pyrophosphate scan negative. He was referred to the Amyloid clinic for further assessment. Today, the main complaint is that he has pain in different places (mainly his joints) and muscle weakness which has limited his mobility. Refers swelling around socks. Otherwise denies any HF related symptoms. He is interested in weight loss and will see the weight loss team in the next week. B/l CTS s/p release, peripheral neuropathy, both shoulder have been replaced, spinal stenosis s/p laminectomy 1995 (l5-S1), no bicep tendon rupture, + trigger finger, b/l hip replacement. Family: No significant history NURSING INTAKE (Patient s concerns and/or recent hospitalizations/ER visits): Zayda De La Vega is a 73 year old male from [place], [place] here today for cardiovascular evaluation related to amyloid Referred by Philippe Dawson APRN.DISTRICT RESOURCE OFFICER He has a significant medical history of diastolic dysfunction, HTN, HLD, OA involving multiple joints, smoldering myeloma, bilateral carpal tunnel s/p revision, trigger finger, spinal stenosis, peripheral neuropathy, SLE, BPH, GERD, MARCELINA (on CPAP) carpal tunnel surgery 01/25/24, biopsy revealed evidence of TTR amyloidosis elevated gamma globulin, and was diagnosed with smoldering myeloma and the later on multiple myeloma in the spring 2023 He reports the following symptoms BL feet and hand numbness, brain fog, chronic pain - skin, joints, and muscle aches. 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 He follows a regular diet and has a hard time participating in exercise/activity. HF Nursing Assessment: Interim Hospitalizations and/or ER visits:no Chest Pain: no Skipping or irregular heartbeats: no Shortness of breath at rest: no Shortness of breath with activity: yes, accompanied by muscle aches Cough: yes - states he has severe sinus congestion and takes mucinex and sudoephedrine all of the time Waking up in the middle of the night gasping for air: no Lightheadedness or dizziness: rarely happens Feeling like you are going to pass out: no Actually passing out: no Poor energy level: fatigues easily Unintentional weight gain: no - stable Unintentional weight loss: no- stable Swelling in your legs,feet, abdomen: ankles Filling up quickly when you eat: always hungry and emotionally over eats PAST MEDICAL HISTORY Diagnosis Date Anxiety Dr. Belle Arthritis of both hips Benign neoplasm of colon Bipolar disorder (HCC) Dr. Belle DDD (degenerative disc disease), lumbar Depressive disorder, not elsewhere classified Diverticulosis of colon (without mention of hemorrhage) HLD (hyperlipidemia) 06/13/2017 Hypertension Internal hemorrhoids without mention of complication Monoclonal paraproteinemia Morbid obesity (HCC) MARCELINA (obstructive sleep apnea) 1997 BiPAP Peripheral neuropathy Prediabetes 09/11/2019 Seasonal allergies Shoulder arthritis Systemic lupus erythematosus (HCC) 10/2021 PAST SURGICAL HISTORY Procedure Laterality Date ARTHROPLASTY TOTAL SHOULDER 04/03/2013 Right shoulder replacement ARTHRP ACETBLR/PROX FEM PROSTC AGRFT/ALGRFT 1992 Hip replacement, total RIGHT BACK SURGERY HX COLONOSCOPY FLX DX W/COLLJ SPEC WHEN PFRMD 08/11/1992 Colonoscopy COLONOSCOPY FLX DX W/COLLJ SPEC WHEN PFRMD 09/01/2018 Colonoscopy COLSC FLX W/RMVL OF TUMOR POLYP LESION SNARE TQ 06/26/2008 ESOPHAGOGASTRODUODENOSCOPY TRANSORAL DIAGNOSTIC 05/08/2020 EGD JOINT REPLACEMENT HX PAST SURGICAL HISTORY OF 1995 L5-S1 spinal fusion with pins, rods, and bolts PAST SURGICAL HISTORY OF 03/2011 Right hip revision PAST SURGICAL HISTORY OF 1970 right shoulder surgery PAST SURGICAL HISTORY OF Left 2018 shoulder replacement REVISE MEDIAN N/CARPAL TUNNEL SURG Left 01/25/2024 Left wrist, revision carpal tunnel release with neurolysis and nerve wrap. Synovial biopsy SOCIAL HISTORY Social History Tobacco Use Smoking status: Former Current packs/day: 0.00 Average packs/day: 1 pack/day for 10.0 years (10.0 ttl pk-yrs) Types: Cigarettes Start date: 10/27/1973 Quit date: 10/27/1983 Years since quittin.6 Smokeless tobacco: Never Vaping Use Vaping status: Never Used Substance Use Topics Alcohol use: Yes Comment: very rarely Drug use: Not Currently Comment: has tried marijuana gummies in the past for pain FAMILY HISTORY Problem Relation Age of Onset Cancer Mother skin Cancer Father KIDNEY other (Brain Tumor) Father No Known Problems Brother Cancer Sister thyroid Anesthesia Problems No Family History ALLERGIES: ALLERGIES Allergen Reactions Aspartame Swelling Pt gets burning sensation under skin Betadine [Povidone-* Rash Blister Cymbalta [Duloxetin* Other: See Comments Sweating Lisinopril Cough Cough Losartan Cough Niacin Other: See Comments Niacin-Dermid Burning pain all over Penicillins Rash Seasonal Allergies Other: See Comments GRASS POLLEN-positive skin test 09-05-13 Sudafed [Pseudoephe* Other: See Comments Difficulty swallowing, swelling of tongue & lips Tamiflu [Oseltamivi* Shortness of Breath SOB, arm pain Trazodone Shortness of Breath Ultram [Tramadol] Per patient contraindication due to wellbutrin CURRENT MEDICATIONS: meloxicam (MOBIC) 15 mg tablet take 1 tablet once daily HYDROcodone-acetaminophen (NORCO) 5-325 mg per tablet Take 1 tablet by mouth every 8 hours as needed for pain for up to 30 days. azelastine 0.1% nasal spray USE 1 SPRAY IN EACH NOSTRIL TWICE DAILY fexofenadine (ANÍBAL) 180 mg tablet Take 1 tablet by mouth once daily. pregabalin (LYRICA) 225 mg capsule Take 1 capsule by mouth two times a day for 90 days. fluticasone-salmeterol (ADVAIR DISKUS) 250-50 mcg/dose inhaler Inhale 1 Puff as instructed two times a day. tamsulosin (FLOMAX) 0.4 mg Take 1 capsule by mouth daily at bedtime. hydrOXYchloroQUINE (PLAQUENIL) 200 mg tablet Take 1 tablet by mouth two times a day. fluticasone (FLONASE) 50 mcg/actuation nasal spray USE 2 SPRAYS IN EACH NOSTRIL ONCE DAILY amLODIPine (NORVASC) 5 mg tablet Take 1 tablet by mouth once daily. metoprolol succinate ER (TOPROL XL) 25 mg 24 hr tablet Take 2 tablets by mouth once daily. guaiFENesin (MUCINEX) 600 mg 12 hr tablet Take 1,200 mg by mouth twice daily as needed for cold/allergy symptoms. fish oil/borage/flax/om3,6,9 1 (OMEGA 3-6-9 ORAL) Take by mouth. alpha lipoic acid (LIPOIC ACID ORAL) Take by mouth. ZINC ORAL Take by mouth. LYSINE ORAL Take by mouth. aspirin, enteric coated (ASPIRIN, ENTERIC COATED) 81 mg EC tablet Take 81 mg by mouth once daily. IRON, FERROUS SULFATE, ORAL Take by mouth once daily. ASCORBIC ACID (VITAMIN C ORAL) Take by mouth once daily. buPROPion (WELLBUTRIN) 75 mg tablet Take 150 mg by mouth twice daily. CPAP/BIPAP/OTHER Replacement autobipap 18/9 with PS of 5cmH2O DME [employer] CPAP Continue BiPAP with new settings: @ 14/8 cm of water with humidification. No new equipment is needed. REVIEW OF SYSTEMS: CONSTITUTION: Negative for: Fever, Night sweats and Recent weight change HEENT: Negative for: Hearing loss RESPIRATORY: Positive for: Cough Negative for: Difficulty breathing GASTROINTESTINAL: Positive for: Abdominal distention Negative for: Melena, Nausea, Diarrhea and Early satiety MUSCULOSKELETAL: Positive for: Arthralgias and Myalgias NEUROLOGICAL: Negative for: Headaches and Dizziness SKIN: Negative for: Rash EYES: Negative for: Visual disturbance CARDIOVASCULAR: Positive for: Leg swelling Negative for: Chest pain, Arrhythmia and Pre-syncope GENITOURINARY: Positive for: Difficulty urinating PATIENT ENTERED DATA: No data to display 02/22/2022 02/11/2024 02/21/2024 PHQ-9 Score 9 5 9 08/01/2023 11/22/2023 02/11/2024 PROMIS Global Health - (T-Scores - the mean of general population = 50. Five points is a clinically meaningful difference.) Physical T-Score 34.9 34.9 34.9 Mental T-Score 45.8 41.1 41.1 PHYSICAL EXAMINATION: BP 132/71 (BP Site: Left Arm, BP Position: Sitting, BP Cuff Size: Extra Large Adult) Pulse (!) 51 Ht 172.7 cm (5' 8) Wt 129.5 kg (285 lb 9.6 oz) SpO2 93% BMI 43.43 kg/m General: Well appearing, in no acute distress. Skin: No clubbing, no cyanosis. Eyes: Extra ocular movements intact Oropharynx: Teeth in good repair. Neck: No jugular venous distention, no carotid bruits, carotids have a normal upstroke, no palpable thyromegaly. Lungs: Clear to auscultation bilaterally, no wheezing or rhonchi. Heart: Regular rhythm, PMI not displaced, S1, S2 normal, no S3, no S4, no heaves, no rub and no murmur. Abdomen: Soft, nontender, bowel sounds normal, no palpable organomegaly, no bruits. Extremities: No peripheral edema . Grade 2/4 distal pulses bilaterally. Neuro: Oriented to person, place and time, alert, cooperative, gait coordinated. CARDIOVASCULAR MEDICINE TESTING: I have personally reviewed the Electrocardiogram, Laboratory Testing, and Echocardiogram. [facility] 03/22/2024 CONCLUSIONS: 1. Not Consistent with TTR amyloidosis 2. Degenerative changes Last ECHO Result Conclusion ECHO Collected: 03/13/2024 8:46 AM (Final result) Impression: CONCLUSIONS: - Technically difficult exam due to body habitus and suboptimal positioning. - Exam indication: Screening Echocardiogram - The left ventricle is normal in size. Left ventricular systolic function is normal. EF = 57 5% (2D biplane) Grade I left ventricular diastolic dysfunction. - The right ventricle is normal in size. Right ventricular systolic function is normal. - The visualized aorta is dilated with a maximal dimension of 4.6 cm. - Exam was compared with the prior echocardiographic exam performed on 10/07/2022. 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 Also detected is a lambda monotypic plasma cell population. These findings may represent the presence of a lambda restricted plasma cell neoplasm or plasmacytic differentiation of B-cell lymphoma (such as marginal zone lymphoma). Correlation with the clinical, laboratory, radiologic, and bone marrow histopathologic findings is suggested. CTS Bx 01/25/2024 FINAL DIAGNOSIS Synovium, left carpal canal, excision: - Synovium with amyloid deposits. - A [place] red stain highlights the amyloid deposits. See comment. 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 He was seen by hematology. Obtained paraprotein workup which showed abnormal serum light chains. Elevated Lambda (30), normal K, normal K/L. M protein in the serum and urine. BM biopsy showed Involvement by a lambda monotypic plasma cell neoplasm (10-15 marrow cellularity). Presented at tumor board who stated he had smoldering myeloma (Confirmed by Dr. Mejia). Other labs: NT proBNP 51 (02/2024). EKG with NSR with RBBB. Echo with preserved LV and RV systolic function, no significant valvular abnormalities. Technetium-99 m pyrophosphate scan negative. He was referred to the Amyloid clinic for further assessment. Patient had genetic counseling and testing which is pending. I have advised him that currently we do not see any evidence of cardiac involvement of his ATTR amyloid. No need for any HF related therapies. No indication for amyloid disease modifying therapies. Depending on genetic testing, if positive will refer to Neurology to consider silencer therapy. Additionally, he is interested in clinical trials if he were to become a candidate at some point. If negative, he will continue following with me in clinic (yearly biomarkers/EKG and 3-4 year Echo and Technetium-99 m pyrophosphate scan) -SLE: October 2021, patient's PCP obtained an PRANAY which returned positive, and subsequently advised patient to follow with a television installer helper. He was diagnosed with SLE based on additional lab tests including strong positive PRANAY IgG, positive antidouble-stranded DNA confirmed by crithidia, weak positive anticardiolipin IgM (per paper lab reports brought by patient) and ultimately was started on hydroxychloroquine. Follows with Dr. Seo at [facility]. -Aortic dilation (4.6cm aorta at the sinuses) -> Will need echocardiogram imaging next year; if needed will get CT -HTN, HLD, BPH, GERD, MARCELINA (on CPAP) PLAN AND RECOMMENDATIONS: -RTC in 1 year with labs, EKG and echocardiogram (to include Ao assessment) I personally interviewed, confirmed and edited the above information as obtained by others I personally spent 65 minutes in total time involved in the management and care of this patient. We discussed natural history of disease, current treatment options, and future potential treatment options. We discussed diet, exercise, other non-medical management as above. Hoa Woo MD [facility] Section Of Heart Failure and Cardiac Transplant Medicine Heart and Vascular [place] [facility] Desk [id number] [place] [address] documented in this encounter [facility] 06-18-2024 Telephone encounter Note Prescription Refill Information The patient has been identified by name and date of : Yes Caregiver verified no other encounters exist for this prescription request: Yes Caregiver confirmed with patient/requestor that no other refills are due, in the near future, with this provider at this time: Yes The last office visit in the department: 02/13/2024 Does the patient have a future office visit with this provider/department: Yes Requested Prescriptions Pending Prescriptions Disp Refills azelastine 0.1% nasal spray 90 mL 3 Sig: Use 1 [place] in each nostril two times a day. Gricelda Lloyd LPN June 18, 2024 12:51 PM [facility] 06-18-2024 Miscellaneous Notes Prescription Refill Information The patient has been identified by name and date of : Yes Caregiver verified no other encounters exist for this prescription request: Yes Caregiver confirmed with patient/requestor that no other refills are due, in the near future, with this provider at this time: Yes The last office visit in the department: 02/13/2024 Does the patient have a future office visit with this provider/department: Yes Requested Prescriptions Pending Prescriptions Disp Refills azelastine 0.1% nasal spray 90 mL 3 Sig: Use 1 [place] in each nostril two times a day. Gricelda Lloyd LPN June 18, 2024 12:51 PM documented in this encounter [facility] 06-11-2024 Telephone encounter Note Prescription Refill Information The patient has been identified by name and date of : Yes Caregiver verified no other encounters exist for this prescription request: Yes Caregiver confirmed with patient/requestor that no other refills are due, in the near future, with this provider at this time: Yes The last office visit in the department: 02/13/24 Does the patient have a future office visit with this provider/department: No Requested Prescriptions Pending Prescriptions Disp Refills meloxicam (MOBIC) 15 mg tablet [Pharmacy Med Name: MELOXICAM TAB 15MG] 90 tablet 1 Sig: take 1 tablet once daily Sienna Inman LPN June 11, 2024 11:08 AM [facility] 06-11-2024 Miscellaneous Notes Prescription Refill Information The patient has been identified by name and date of : Yes Caregiver verified no other encounters exist for this prescription request: Yes Caregiver confirmed with patient/requestor that no other refills are due, in the near future, with this provider at this time: Yes The last office visit in the department: 02/13/24 Does the patient have a future office visit with this provider/department: No Requested Prescriptions Pending Prescriptions Disp Refills meloxicam (MOBIC) 15 mg tablet [Pharmacy Med Name: MELOXICAM TAB 15MG] 90 tablet 1 Sig: take 1 tablet once daily Sienna Inman LPN June 11, 2024 11:08 AM documented in this encounter [facility] 06-06-2024 History of Present illness Narrative GENETIC COUNSELING CONSULTATION Zayda De La Vega is a 73 year old male with a history of amyloidosis identified on biopsy referred for genetic counseling by Philippe Dawson. Appointment occurred via telephone communication. I have communicated my name and active licensure. The patient's identity and physical location were verified at the time of this visit. 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 HISTORY OF PRESENT ILLNESS: Zayda De La Vega is a 73 year old male with: carpal tunnel surgery 01/25/24, biopsy revealed evidence of TTR amyloidosis multiple orthopedic surgeries (see below) nuclear scan of the heart was not consistent with TTR peripheral neuropathy elevated gamma globulin, and was diagnosed with smoldering myeloma and the later on multiple myeloma in the spring 2023 scheduled to visit with Drs. Mejia and Siddharth Woo in amyloid clinic on Jun 18, 2024 Zayda De La Vega was referred to cardiovascular genetics for genetic counseling and consideration for genetic testing for TTR Cardiovascular Testing: * * *Final Report* * * DATE OF EXAM: Mar 22 2024 2:52PM OG [id number] - [place] CARDIAC AMYLOID SPECT/CT / PROCEDURE REASON: E85.9-Tfiaw-cyibfbe amyloidosis (HCC) * * * * Physician Interpretation * * * * Patient: Name: MR. ZAYDA DE AL VEGA Age: 73 years Gender: M CONCLUSIONS: 1. Not Consistent with TTR amyloidosis 2. Degenerative changes * Please note that a negative or mildly positive study does not exclude AL amyloid. In addition, equivocal results could represent AL amyloid or early ATTR. We suggest concomitant workup of AL amyloid with laboratory testing and pathologic assessment as appropriate. Nuclear Med Report: PLANAR and SPECT: Myocardial imaging of the chest with CT attenuation correction was performed at 3 hours post IV injection of the radiopharmaceutical. See administered doses below. Echocardiogram 03/13/24: CONCLUSIONS: - Technically difficult exam due to body habitus and suboptimal positioning. - Exam indication: Screening Echocardiogram - The left ventricle is normal in size. Left ventricular systolic function is normal. EF = 57 5% (2D biplane) Grade I left ventricular diastolic dysfunction. - The right ventricle is normal in size. Right ventricular systolic function is normal. - The visualized aorta is dilated with a maximal dimension of 4.6 cm. - Exam was compared with the prior echocardiographic exam performed on 10/07/2022. Aortic dilatation was not appreciated on the prior study MEDICAL HISTORY: PAST MEDICAL HISTORY No date: Anxiety Comment: Dr. Belle No date: Arthritis of both hips No date: Benign neoplasm of colon No date: Bipolar disorder (HCC) Comment: Dr. Belle No date: DDD (degenerative disc disease), lumbar No date: Depressive disorder, not elsewhere classified No date: Diverticulosis of colon (without mention of hemorrhage) 06/13/2017: HLD (hyperlipidemia) No date: Hypertension No date: Internal hemorrhoids without mention of complication No date: Monoclonal paraproteinemia No date: Morbid obesity (HCC) 1997: MARCELINA (obstructive sleep apnea) Comment: BiPAP No date: Peripheral neuropathy 09/11/2019: Prediabetes No date: Seasonal allergies No date: Shoulder arthritis 10/2021: Systemic lupus erythematosus (HCC) SURGICAL HISTORY: PAST SURGICAL HISTORY 04/03/2013: ARTHROPLASTY TOTAL SHOULDER Comment: Right shoulder replacement 1992: ARTHRP ACETBLR/PROX FEM PROSTC AGRFT/ALGRFT Comment: Hip replacement, total RIGHT No date: BACK SURGERY HX 08/11/1992: COLONOSCOPY FLX DX W/COLLJ SPEC WHEN PFRMD Comment: Colonoscopy 09/01/2018: COLONOSCOPY FLX DX W/COLLJ SPEC WHEN PFRMD Comment: Colonoscopy 06/26/2008: COLSC FLX W/RMVL OF TUMOR POLYP LESION SNARE TQ 05/08/2020: ESOPHAGOGASTRODUODENOSCOPY TRANSORAL DIAGNOSTIC Comment: EGD No date: JOINT REPLACEMENT HX 1995: PAST SURGICAL HISTORY OF Comment: L5-S1 spinal fusion with pins, rods, and bolts 03/2011: PAST SURGICAL HISTORY OF Comment: Right hip revision 1970: PAST SURGICAL HISTORY OF Comment: right shoulder surgery 2018: PAST SURGICAL HISTORY OF; Left Comment: shoulder replacement 01/25/2024: REVISE MEDIAN N/CARPAL TUNNEL SURG; Left Comment: Left wrist, revision carpal tunnel release with neurolysis and nerve wrap. Synovial biopsy FAMILY HISTORY: A detailed, 4-generation family history was obtained, details are available on request. Significant diagnoses are listed below: FAMILY HISTORY Problem Relation Age of Onset Cancer Mother skin Cancer Father KIDNEY other (Brain Tumor) Father Cancer Sister thyroid No Known Problems Brother Anesthesia Problems No Family History The remainder of the reported family history is negative for hereditary cardiovascular disease, sudden , and consanguinity. IMPRESSION: Zayda De La Vega is a 73 year old male with: carpal tunnel surgery 01/25/24, biopsy revealed evidence of TTR amyloidosis nuclear scan of the heart was not consistent with TTR peripheral neuropathy multiple myeloma dilated aorta (4.6 cm at sinus on echo) Genetic testing for TTR is recommended to determine if he has hereditary or wild-type TTR amyloidosis. There is no known family history of amyloidosis or heart failure. Zayda De La Vega's echocardiogram from March reports aortic dilatation. Discussed that this can also run in families. Discussed that his daughters and brother and sister should have aortic imaging, at least with echocardiogram to assess aortic measurements. We reviewed the options for TTR genetic testing including a through insurance, self pay, or sponsored testing. The patient elected to proceed with TTR gene testing through sponsored testing, which means the cost is covered by the genetic testing company, patient advocacy group and/or other commercial organizations and, therefore, will not go through the patient's insurance. Third parties and commercial organizations may receive de-identified patient data from this program, but at no time would they receive patient identifiable information. Information regarding potential targeted therapies may be disclosed to the ordering provider but does not obligate the provider or patient to use any products or services. PLAN: - TTR through [facility]. Results are expected in approximately 2-3 weeks from the time the sample is received by the lab. The patient will be contacted by telephone and/or [employer] to discuss these results. - If genetic testing is positive, recommend genetic counseling and testing for relatives - If genetic testing is negative/normal, no cardiac evaluations will be needed regarding risk for amyloidosis. However, given history of aortic dilatation, relatives should consider aortic screening. - Results can be released directly by [employer] and/or [employer]. If the patient reviews the results before I am able to provide a summary of the results over the phone or through [employer], the patient can call me to discuss further at [phone]. A follow up genetic counseling visit will be scheduled if indicated. GENETIC COUNSELING: Transthyretin (TTR) amyloidosis is a condition in which abnormal protein deposits (amyloids) collect in specific organs, including the nervous system, eyes, and heart. Cardiac amyloidosis is caused by amyloid deposits collecting in the heart, which can lead to cardiomyopathy (a stiff/thick or weakened heart muscle) and heart failure. Some individuals with TTR amyloidosis develop neuropathy due to amyloid deposits in the nerves. TTR amyloidosis can be due to a pathogenic (harmful) variant in one copy of a person's TTR gene, which is called hereditary transthyretin amyloidosis (hATTR). TTR amyloidosis can also occur sporadically and not due to an inherited pathogenic variant in TTR, which is called wild-type amyloidosis. Genetic testing testing can help distinguish hereditary TTR amyloidosis from wild-type TTR amyloidosis. Hereditary TTR amyloidosis is an autosomal dominant condition, meaning that one pathogenic variant in TTR (heterozygous) predisposes a person to developing the disease and that individual s first degree relatives (parents, siblings and children) have a 50% risk of having inherited the same mutation. The majority of individuals with a clinical diagnosis of Familial Transthyretin Amyloidosis will have an identifiable mutation in TTR. Clinical testing is available for this gene. Genetic testing should be started in a person who has or is suspected to have amyloidosis. Identification of a pathogenic variant in TTR would confirm an underlying genetic cause for amyloidosis and may provide useful information to help guide medical management. If a pathogenic variant is identified in a person with TTR amyloidosis, other family members could then consider testing for the familial variant to clarify their risk of developing the disease. Family members who do not have the familial TTR variant are not at increased risk for TTR amyloidosis. Family members who are positive for the familial TTR variant should be followed by specialists familiar with amyloidosis; identification of the familial TTR variant in family members without symptoms does not guarantee they will develop the disease, only that they have an increased risk. Sometimes, a rare variant may be identified in TTR which is not well-studied or understood. These are called variants of uncertain significance. If a variant of unknown significance is identified, these results are typically not used for medical care or family screening. In rare cases, family testing may be recommended on a research basis to clarify the significance of the variant. -------- The patient was seen for a total of 25 minutes in phone based counseling. This plan is being carried out under oversight of Dr. Prachi Haji, Clinical Oxygen Equipment Preparer. This note is available to the patient through [employer] and will be sent to the referring provider through [email or web address] or the [place] Mail as necessary. Susan Lr MS, [facility] [place] Licensed, Certified Genetic Counselor [facility] CC: Dr. Philippe Haji documented in this encounter [facility] 06-05-2024 History of Present illness Narrative Zayda De La Vega a 73 year old male presents to the acupuncture clinic on 06/05/24 for a follow up visit. Patient identity confirmed by name and : Yes This is the 2 visit for the patient this year It has been 1 week(s) since the last acupuncture treatment. Last treatment date: 05/29/2024 Initial Acupuncture treatment date: 05/29/2024 Chief Complaint: pain and paresthesia in upper and lower extremities, Lupus, Amyloidosis, and osteoarthritis SUBJECTIVE Patient noted he had soreness and increased pain in fingers/hands and feet lasted for 3 days until subsided. Then, he had some pain relief so far, noticing improved pain. Patient initially presented with numbness in fingers/ hands and feet, excruciating pain, describing as electrical pulse into the fingers. He also addressed his skin pain as sun burn, osteoarthritis causing pain in the feet. He retired 15 years ago, his skin began to feel as he had sunburn and that is how he started getting the initial symptoms. The symptoms at some point went away, and came back October 2019 and was diagnosed with Lupus which explained of his skin pain. His finger tips begin to hurt in the morning with numbness and fingers. 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 He has been recently diagnosed with amyloidosis. Amyloidosis was found in the wrists where he had carpal tunnel syndrome, not confirmed whether the amyloidosis confined in the wrists or moved to the heart yet. Patient also experiences sciatic type of pain in sacral region to lower leg regular basis, but not daily. 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 Lyrica and plaquenil Hydrocodone and Meloxicam with significant relief of the pain Food sensitivity: night shades vegetables (white potatoes, containing many more chemicals that people can be sensitive to, high in alkaloids), tomatoes, egg plants, and etc. PAIN ASSESSMENT: Currently experiencing pain Pain level (0 no pain at all to 10 being the worst): 5 OBJECTIVE: Visual Inspection Discoloration: none Edema: none Gait/Ambulation: slow Gamble: ok Qi/Patient vitality: ok Alert, No distress, and Cooperative Well-Groomed and Pleasant Normal Imaging reports Images on file See EPIC Images have been reviewed No TCM Tongue: -- TCM Pulse: -- ASSESSMENT Patient presents with signs and symptoms consistent with the diagnosis. Patient would benefit from acupuncture therapy to address listed deficiencies and return to PLOF. Pt was educated on symptoms, prognosis, plan of care and activity modifications. Pt verbalized understanding and agreed to begin care. TCM Pattern: Chronic bilateral low back pain with bilateral sciatica (primary encounter diagnosis) Chronic pain syndrome Numbness and tingling of foot Polyneuropathy, unspecified Systemic lupus erythematosus, unspecified sle type, unspecified organ involvement status (hcc) due to qi stagnation and blood stasis TCM Treatment Principle: regulate qi and invigorate blood to relieve pain PLAN OF CARE Counseled patient on risks of acupuncture treatment including pain, infection, bleeding, and no relief of pain. The patient was positioned comfortably. There was no evidence of infection at the site of needle insertions. Acupuncture Treatment: Treatment/Needle Set 1, Supine: Points: Yin Cowan, ear gamble men, ear sympathetic, Ba Godfrey, SJ3, Hammad uriel, SJ5, GB34, ST36 15 minutes face to face with patient for set 1 Treatment/Needle Set 2, Supine: Points: GB41, ST43, ST41, KD10, Di Barrios, LV3, KD3 10 minutes face to face with patient for set 2 Norton were retained for 30 minutes # of needles inserted: 37 # of needles withdrawn: 37 Adjunct techniques used: TDP Infrared Heat Lamp- Applied to Feet Patient tolerated the procedure well. UNIVERSAL PROTOCOL / SAFETY CHECKLIST Procedure to be Performed: Acupuncture Sign In: A Moment of CARE was completed. Personnel directly involved with the procedure wore the appropriate PPE (Personal Protective Equipment). Patient/Surrogate Stated/Verified: PATIENT VERIFIED(optional for EMERGENT procedures): Patient name, Date of , Relevant allergies, and The intended procedure Time Out Communication: Intended patient and procedure match the source documents. Consent documented and matches the intended procedure. Sign Out: SIGN OUT (optional for EMERGENT procedures): All instruments, equipment, possible retained foreign bodies accounted for. Viky Gudino Provider Name: Viky Gudino 25 Total minutes face to face time spent with patient Acupuncture and [place] herbal therapy are not a substitute for conventional medical diagnosis and treatment. Patient agrees that either: 1. A diagnostic exam has been performed by a physician or chiropractor within the last six months regarding the condition for which they are seeking acupuncture treatment. or 2. If no diagnostic exam by a physician or chiropractor has been done within the last six months regarding the condition for which patient is seeking treatment, the Intensive Care Specialist, per [place] Law, recommends that this diagnostic exam be performed. documented in this encounter [facility] 05-30-2024 History of Present illness Narrative Images from the original note were not included. [facility] Follow up/ Established patient visit Date of last visit :03/05/2024 I have communicated my name and active licensure. The patient's identity and physical location were verified at the time of this visit. 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 Per last visit: IMPRESSION: Marcelina (obstructive sleep apnea) (primary encounter diagnosis) Obesity, class iii, bmi 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) (hcc) Zayda De La Vega is a 73 year old male with a PMH of HTN, HLD, BPH, GERD, lupus, arthritis, depression, anxiety, prediabetes and class III obesity who presents via zoom for MARCELINA follow up. A Polysomnogram performed on 02/20/2024 revealed mild MARCELINA (AHI of 12.7) that was exacerbated to severe in off supine sleep (AHI 34.3) and was associated with a minimum O2 saturation of 86%. Poor sleep efficiency overnight at 13%. -Mr. De La Vega's device is old, outdated and power cord keeps falling out and shutting the device off. Will order replacement autopap at this time. -Reviewed pap therapy. Discussed insurance requirements including meeting compliance and follow up. Reviewed mask options. Recommended they start with a nasal mask. Reviewed DME options. Information left in AVS. -He does well with using both FFM and nasal pillow mask. Order to go to [facility] PLAN: - Will start Auto Bilevel PAP 20/06 with PS of 5cmH2O with a mask per patient preference . - I will have a prescription sent to a [employer] (durable medical equipment) company - [facility] who will be calling you in the next 1-2 weeks or so. Please call them directly or us if you do not hear from them in this time frame. - You should be eligible for new supplies approximately every 3-6 months, depending on your insurance coverage. - If your mask doesn't fit well, call the [employer] company before 30 days are up to get a new mask without an additional charge. - Insurance requires regular usage and periodic office follow ups for PAP therapy, to continue to cover supplies. - Follow up in 3 months, appt made today Shavon Dawkins APRN.DISTRICT RESOURCE OFFICER Interval history : New machine is working perfectly Here for follow up for MARCELINA SLEEP APNEA Sleep apnea type : MARCELINA, Most Recent Apnea-Hypopnea Index (AHI): 12.7 Treatment : PAP therapy DME name: [facility] fax: [phone] PAP History: Uses Bilevel PAP for 6-7 hours per night, 7 nights per week. Current PAP settin/9 with Ps of 5 cm H2O. Difficulties with Bilevel PAP: None Reviewed objective PAP compliance data: n/a Mask type: nasal pillow and FFM Mask issues: none Uses humidity: distilled water There is a perceived benefit by the patient: feels better with it Observers report abolition of snoring with Bilevel PAP use. PATIENT-ENTERED QUESTIONNAIRE SLEEP SCORES 03/02/2024 Sleep Questions Reason for visit: Sleep apnea 02/11/2024 [place] Sleepiness Scale Score 4 (No clinically significant daytime sleepiness) 02/11/2024 04/22/2024 05/22/2024 PROMIS CAT Sleep Disturbance PROMIS Sleep Disturbance T-Score 58 (mild) 59 (mild) 56 (mild) PROMIS Sleep Disturbance Percentile 21 18 27 02/22/2022 02/11/2024 Insomnia Severity Index Score 14 14 02/22/2022 02/11/2024 02/21/2024 PHQ-9 Score 9 5 9 08/01/2023 11/22/2023 02/11/2024 PROMIS Global Health - (T-Scores - the mean of general population = 50. Five points is a clinically meaningful difference.) Physical T-Score 34.9 34.9 34.9 Mental T-Score 45.8 41.1 41.1 PMH, PSH, SH: reviewed SLEEP RELATED ROS Review of Systems Constitutional: Positive for fatigue. HENT: Positive for congestion. Musculoskeletal: Positive for arthralgias and back pain. Neurological: Negative for headaches. ALLERGIES Allergen Reactions Aspartame Swelling Pt gets burning sensation under skin Betadine [Povidone-* Rash Blister Cymbalta [Duloxetin* Other: See Comments Sweating Lisinopril Cough Cough Losartan Cough Niacin Other: See Comments Niacin-Dermid Burning pain all over Penicillins Rash Seasonal Allergies Other: See Comments GRASS POLLEN-positive skin test 09-05-13 Sudafed [Pseudoephe* Other: See Comments Difficulty swallowing, swelling of tongue & lips Tamiflu [Oseltamivi* Shortness of Breath SOB, arm pain Trazodone Shortness of Breath Ultram [Tramadol] Per patient contraindication due to wellbutrin CURRENT MEDICATIONS: HYDROcodone-acetaminophen (NORCO) 5-325 mg per tablet Take 1 tablet by mouth every 8 hours as needed for pain for up to 30 days. azelastine 0.1% nasal spray USE 1 SPRAY IN EACH NOSTRIL TWICE DAILY fexofenadine (ANÍBAL) 180 mg tablet Take 1 tablet by mouth once daily. pregabalin (LYRICA) 225 mg capsule Take 1 capsule by mouth two times a day for 90 days. fluticasone-salmeterol (ADVAIR DISKUS) 250-50 mcg/dose inhaler Inhale 1 Puff as instructed two times a day. tamsulosin (FLOMAX) 0.4 mg Take 1 capsule by mouth daily at bedtime. CPAP/BIPAP/OTHER Replacement autobipap 18/9 with PS of 5cmH2O DME [employer] meloxicam (MOBIC) 15 mg tablet Take 1 tablet by mouth once daily. hydrOXYchloroQUINE (PLAQUENIL) 200 mg tablet Take 1 tablet by mouth two times a day. fluticasone (FLONASE) 50 mcg/actuation nasal spray USE 2 SPRAYS IN EACH NOSTRIL ONCE DAILY amLODIPine (NORVASC) 5 mg tablet Take 1 tablet by mouth once daily. metoprolol succinate ER (TOPROL XL) 25 mg 24 hr tablet Take 2 tablets by mouth once daily. guaiFENesin (MUCINEX) 600 mg 12 hr tablet Take 1,200 mg by mouth twice daily as needed for cold/allergy symptoms. fish oil/borage/flax/om3,6,9 1 (OMEGA 3-6-9 ORAL) Take by mouth. alpha lipoic acid (LIPOIC ACID ORAL) Take by mouth. ZINC ORAL Take by mouth. LYSINE ORAL Take by mouth. CPAP Continue BiPAP with new settings: @ 14/8 cm of water with humidification. No new equipment is needed. aspirin, enteric coated (ASPIRIN, ENTERIC COATED) 81 mg EC tablet Take 81 mg by mouth once daily. IRON, FERROUS SULFATE, ORAL Take by mouth once daily. ASCORBIC ACID (VITAMIN C ORAL) Take by mouth once daily. buPROPion (WELLBUTRIN) 75 mg tablet Take 150 mg by mouth twice daily. PHYSICAL EXAMINATION: Vital Signs: Deferred due to virtual visit via Zoom. General appearance: NAD Mental status: awake and alert Constitutional: Well groomed Skin: Dry and intact Neuro: Speech fluent IMPRESSION: Marcelina (obstructive sleep apnea) (primary encounter diagnosis) Nasal congestion Zayda De La Vega is a 73 year old male with a PMH of HTN, HLD, BPH, GERD, lupus, arthritis, depression, anxiety, prediabetes and class III obesity who presents via zoom for MARCELINA follow up. A Polysomnogram performed on 02/20/2024 revealed mild MARCELINA (AHI of 12.7) that was exacerbated to severe in off supine sleep (AHI 34.3) and was associated with a minimum O2 saturation of 86%. Poor sleep efficiency overnight at 13%. -Mr. De La Vega does well with his bipap therapy. He denies pressure or mask intolerance, is compliant and benefiting. He uses both nasal pillow and FFM depending on nasal congestion - Takes pseudoephedrine and flonase for congestion. Reviewed proper administration of flonase, recommend he change out filter on his autobipap regularly PLAN: - Continue Auto Bilevel PAP at 18/ with PS of 5cmH2O. - Send me your serial number on the back of your machine - Remember to clean your mask and equipment regularly, as directed. - You should be eligible for new supplies approximately every 3-6 months, depending on your insurance coverage. Contact your Durable Medical Equipment (DME) company for new supplies as needed. - Follow up in 12-24 months with me. Shavon Dawkins APRN.EDOUARD documented in this encounter [facility] 05-29-2024 History of Present illness Narrative Images from the original note were not included. Zayda De La Vega a 73 year old male presents to the acupuncture clinic on 05/29/24 for an initial consultation. Patient identity confirmed by name and : Yes Chief Complaint: Pain and paresthesia in upper and lower extremities, LUPUS, Amyloidosis, and osteoarthritis SUBJECTIVE Patient presents with numbness in fingers/ hands and feet, excruciating pain, describing as electrical pulse into the fingers. He also addressed his skin pain as sun burn, osteoarthritis causing pain in the feet. He retired 15 years ago, his skin began to feel as he had sunburn and that is how he started getting the initial symptoms. The symptoms at some point went away, and came back October 2019 and was diagnosed with Lupus which explained of his skin pain. His finger tips begin to hurt in the morning with numbness and fingers. 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 He has been recently diagnosed with amyloidosis. Amyloidosis was found in the wrists where he had carpal tunnel syndrome, not confirmed whether the amyloidosis confined in the wrists or moved to the heart yet. Patient also experiences sciatic type of pain in sacral region to lower leg regular basis, but not daily. 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 Lyrica and plaquenil Hydrocodone and Meloxicam with significant relief of the pain Food sensitivity: night shades vegetables (white potatoes, containing many more chemicals that people can be sensitive to, high in alkaloids), tomatoes, egg plants, and etc. [facility] Gud[facility] [address] [address] Dept: [phone] Zayda De La Vega : 1950 [facility] Acupuncture Intake Form (For Patient Review Regarding Diagnostic Exam) I have received a diagnostic exam by physician or chiropractor within the last six months regarding the condition for which I am seeking treatment. Patient Signature: Zayda De La Vega Date: 05/29/24 Intensive Care Specialist Signature: Jhon [place]. Date: 05/29/24 The patient's history is well detailed in the EMR. Current view: Showing all answers [facility] Additional Demo Question 05/22/2024 11:38 AM EDT - Filed by Patient Is this visit related to an accident, other than Workers' Compensation? No Is this visit related to Workers' Compensation? No Do you need an park interpreter? No [facility] Cat V2.0-Physical Function-28 Days Question 05/22/2024 11:39 AM EDT - Filed by Patient 03/31/2024 8:37 AM EDT - Filed by Patient 02/21/2024 1:38 PM EDT - Filed by Patient PROMIS Physical Function T-Score (range: 10 - 90) 34 (moderate dysfunction) 34 (moderate dysfunction) 32 (moderate dysfunction) PROMIS Physical Function Percentile (range: 0 - 100) 5 5 4 [facility] Cat V1.0 - Fatigue-28 Days Question 05/22/2024 11:40 AM EDT - Filed by Patient 03/31/2024 8:38 AM EDT - Filed by Patient 02/21/2024 1:38 PM EDT - Filed by Patient PROMIS Fatigue T-Score (range: 10 - 90) 64 (moderate) 64 (moderate) 63 (moderate) PROMIS Fatigue Percentile (range: 0 - 100) 8 8 10 [facility] Cat V1.0-Anxiety 28 Days Question 05/22/2024 11:40 AM EDT - Filed by Patient 04/22/2024 7:42 PM EDT - Filed by Patient PROMIS Anxiety T-Score (range: 10 - 90) 51 (within normal limits) 58 (mild) PROMIS Anxiety Percentile (range: 0 - 100) 46 21 [facility] Neuro-Qol Cat V2.0 Cognitive Function-28 Days Question 05/22/2024 11:41 AM EDT - Filed by Patient 04/22/2024 7:43 PM EDT - Filed by Patient Neuro-QoL - Cognitive Function T-Score (range: 10 - 90) 45 (mild dysfunction) 40 (moderate dysfunction) Neuro-QoL Cognitive Function Percentile (range: 0 - 100) 31 16 [facility] Cat V1.0-Satisfaction With Social Roles-28 Days Question 05/22/2024 11:42 AM EDT - Filed by Patient 04/22/2024 7:44 PM EDT - Filed by Patient 02/21/2024 1:39 PM EDT - Filed by Patient PROMIS - Satisfaction with Participation in Social Roles T-Score (range: 10 - 90) 41 (Average) 46 (Average) 39 (Low) PROMIS Social Role Satisfaction Percentile (range: 0 - 100) 18 34 14 [facility] Cat V1.1-Pain Interference-28 Days Question 05/22/2024 11:42 AM EDT - Filed by Patient 03/31/2024 8:38 AM EDT - Filed by Patient 02/21/2024 1:39 PM EDT - Filed by Patient PROMIS Pain Interference T-Score (range: 10 - 90) (range: 10 - 90) 65 (moderate) 69 (moderate) 63 (moderate) PROMIS Pain Interference Percentile (range: 0 - 100) 7 3 10 [facility] Cat V1.0-Sleep Disturbance-28 Days Question 05/22/2024 11:43 AM EDT - Filed by Patient 04/22/2024 7:45 PM EDT - Filed by Patient 02/11/2024 7:03 PM EDT - Filed by Patient PROMIS Sleep Disturbance T-Score (range: 10 - 90) 56 (mild) 59 (mild) 58 (mild) PROMIS Sleep Disturbance Percentile (range: 0 - 100) 27 18 21 [facility] Acupuncture Intake Form Question 05/22/2024 12:00 PM EDT - Filed by Patient Are you presently working? No Are you currently being treated with blood thinning medications? No Are you currently being treated with chemotherapy? No Please check all that apply: None apply Primary Reason for Treatment: Lupus and myeloma pain Have you received a medical diagnosis? Yes If Yes, please explain: Lupus, amyloidosis, and smoldering myeloma Have you had any medical imaging? Yes If Yes, please explain: PET, cardio with contrast and that type of thing How long have you had these symptoms? skin, muscle and joint pain for over 15 years, from Lupus and osteoarthritis, but now also with amyloidosis and myeloma How do these conditions impair your daily activities? some days it is worse, and it shuts me down to inactivity Other treatments you have used: Lyrica, hydroxychloroquine, and Alexander () What makes your symptoms better? Alexander mostly, but the Lyrica and hydroxychloroquine have been helpful since 2019. What makes your symptoms worse? a weather front with rain, and movement where arthritis is strongest in me Are you seeking treatment for pain? Yes PLEASE COMPLETE IF YOU ARE SEEKING TREATMENT FOR PAIN: Please describe your pain level (0 no pain at all to 10 being the worst pain): 5 Pain character: Moves from place to place Fixed at one place Generalized Constant Intermittent Specify how frequently: arthritis pain all the time, but Lupus pain intermittantly Pain quality: Sharp Dull Tingling Stabbing Pain worse with: Movement Weather Please be specific: I have joint, muscle and nerve pain al the time Pain better with: Nothing improves pain Please be specific: Alexander knocks it down best How did the pain start? Gradually How often are you experiencing pain: 25/04 Was pain caused by an injury? No Current and/or prior treatment for this pain: Surgery Are you taking any pain medication (prescriptions and over the counter): Yes If Yes, name and dosage: Alexander 5/325 at half a pill, three times a day Using the pictures below, indicate directly on the figures the area(s) where you are experiencing pain and numbness. Myc Document/Image Upload Question 05/22/2024 12:00 PM EDT - Filed by Patient Photo ID If there are images or documents you'd like to share with your provider during your visit, you may upload up to a total of five files. For body images use the pencil icon to label your image. When labeling the image, please use the following format: The name of the body part followed by the side. For example, Back of Right Forearm or Lower Left Leg. Previous Responses Myc Provider Understanding Current Health Wellness Question 04/22/2024 7:45 PM EDT - Filed by Patient These questions will help my provider understand my health Agree OBJECTIVE: Visual Inspection Discoloration: none Edema: none Gait/Ambulation: slow Gamble: ok Qi/Patient vitality: ok Alert, No distress, and Cooperative Well-Groomed and Pleasant Normal Imaging reports Images on file See EPIC Images have been reviewed No TCM Tongue: -- TCM Pulse: -- ASSESSMENT Patient presents with signs and symptoms consistent with the diagnosis. Patient would benefit from acupuncture therapy to address listed deficiencies and return to PLOF. Pt was educated on symptoms, prognosis, plan of care and activity modifications. Pt verbalized understanding and agreed to begin care. TCM Pattern: Chronic bilateral low back pain with bilateral sciatica (primary encounter diagnosis) Chronic pain syndrome Numbness and tingling of foot Polyneuropathy, unspecified Systemic lupus erythematosus, unspecified sle type, unspecified organ involvement status (hcc) due to qi stagnation and blood stasis TCM Treatment Principle: regulate qi and invigorate blood to relieve pain PLAN OF CARE Counseled patient on risks of acupuncture treatment including pain, infection, bleeding, and no relief of pain. The patient was positioned comfortably. There was no evidence of infection at the site of needle insertions. Counseled patient on differences between Shared Acupuncture Medical Appointment and Private Visit follow-ups. Patient is a suitable candidate for Shared Acupuncture Medical Appointments (CARMINA): No Recommended Treatment Schedule: acupuncture 4-5 sessions until re-eval Patient will then be re-evaluated for therapeutic effect. Clinical Objective: Therapeutic Informed Consent Capture: RBAPC and equipment discussed with patient and Informed Consent was gathered. Intake form located in patient file. Acupuncture Treatment: Treatment/Needle Set 1, Supine: Points: Yin Cowan, ear gamble men, ear sympathetic, Ba Godfrey, SJ3, Hammad uriel, SJ5, GB34, ST36 15 minutes face to face with patient for set 1 Treatment/Needle Set 2, Supine: Points: GB41, ST43, ST41, KD10, Di Barrios, LV3, KD3 10 minutes face to face with patient for set 2 [place] were retained for 30 minutes # of needles inserted: 37 # of needles withdrawn: 37 Adjunct techniques used: TDP Infrared Heat Lamp- Applied to Feet Patient tolerated the procedure well. UNIVERSAL PROTOCOL / SAFETY CHECKLIST Procedure to be Performed: Acupuncture Sign In: A Moment of CARE was completed. Personnel directly involved with the procedure wore the appropriate PPE (Personal Protective Equipment). Patient/Surrogate Stated/Verified: PATIENT VERIFIED(optional for EMERGENT procedures): Patient name, Date of , Relevant allergies, and The intended procedure Time Out Communication: Intended patient and procedure match the source documents. Consent documented and matches the intended procedure. Sign Out: SIGN OUT (optional for EMERGENT procedures): All instruments, equipment, possible retained foreign bodies accounted for. Viky Gudino Provider Name: Viky Gudino 45 Total minutes face to face time spent with patient Acupuncture and [place] herbal therapy are not a substitute for conventional medical diagnosis and treatment. Patient agrees that either: 1. A diagnostic exam has been performed by a physician or chiropractor within the last six months regarding the condition for which they are seeking acupuncture treatment. or 2. If no diagnostic exam by a physician or chiropractor has been done within the last six months regarding the condition for which patient is seeking treatment, the Intensive Care Specialist, per [place] Law, recommends that this diagnostic exam be performed. documented in this encounter [facility] 05-22-2024 Telephone encounter Note The following approved medication requests have been transmitted electronically. Requested Prescriptions Signed Prescriptions Disp Refills HYDROcodone-acetaminophen (NORCO) 5-325 mg per tablet 90 tablet 0 Sig: Take 1 tablet by mouth every 8 hours as needed for pain for up to 30 days. Edinson Zarate MD [facility] 05-22-2024 Miscellaneous Notes The following approved medication requests have been transmitted electronically. Requested Prescriptions Signed Prescriptions Disp Refills HYDROcodone-acetaminophen (NORCO) 5-325 mg per tablet 90 tablet 0 Sig: Take 1 tablet by mouth every 8 hours as needed for pain for up to 30 days. Edinson Zarate MD Please review and advise documented in this encounter [facility] 05-21-2024 Telephone encounter Note The following approved medication requests have been transmitted electronically. Requested Prescriptions Signed Prescriptions Disp Refills azelastine 0.1% nasal spray 30 mL 5 Sig: USE 1 SPRAY IN EACH NOSTRIL TWICE DAILY Authorizing Provider: EDINSON ZARATE MD [facility] 05-21-2024 Miscellaneous Notes The following approved medication requests have been transmitted electronically. Requested Prescriptions Signed Prescriptions Disp Refills azelastine 0.1% nasal spray 30 mL 5 Sig: USE 1 SPRAY IN EACH NOSTRIL TWICE DAILY Authorizing Provider: EDINSON ZARATE MD Prescription Refill Information The patient has been identified by name and date of : Yes Caregiver verified no other encounters exist for this prescription request: Yes Caregiver confirmed with patient/requestor that no other refills are due, in the near future, with this provider at this time: Yes The last office visit in the department: 02/13/2024 Does the patient have a future office visit with this provider/department: No Requested Prescriptions Pending Prescriptions Disp Refills azelastine 0.1% nasal spray [Pharmacy Med Name: AZELASTINE 0.1% (137 MCG) SPRY] Sig: USE 1 SPRAY IN EACH NOSTRIL TWICE DAILY Gricelda Lloyd LPN May 21, 2024 10:15 AM documented in this encounter [facility] 05-21-2024 Telephone encounter Note Please review and advise [facility] 05-21-2024 Telephone encounter Note Prescription Refill Information The patient has been identified by name and date of : Yes Caregiver verified no other encounters exist for this prescription request: Yes Caregiver confirmed with patient/requestor that no other refills are due, in the near future, with this provider at this time: Yes The last office visit in the department: 02/13/2024 Does the patient have a future office visit with this provider/department: No Requested Prescriptions Pending Prescriptions Disp Refills azelastine 0.1% nasal spray [Pharmacy Med Name: AZELASTINE 0.1% (137 MCG) SPRY] Sig: USE 1 SPRAY IN EACH NOSTRIL TWICE DAILY Gricelda Lloyd LPN May 21, 2024 10:15 AM [facility] 05-09-2024 Telephone encounter Note The following approved medication requests have been transmitted electronically. Requested Prescriptions Signed Prescriptions Disp Refills fexofenadine (ANÍBAL) 180 mg tablet 90 tablet 3 Sig: Take 1 tablet by mouth once daily. Authorizing Provider: KONEDINSON KONG MD [facility] 05-09-2024 Miscellaneous Notes The following approved medication requests have been transmitted electronically. Requested Prescriptions Signed Prescriptions Disp Refills fexofenadine (ANÍBAL) 180 mg tablet 90 tablet 3 Sig: Take 1 tablet by mouth once daily. Authorizing Provider: EDINSON ZARATE MD Prescription Refill Information The patient has been identified by name and date of : Yes Caregiver verified no other encounters exist for this prescription request: Yes Caregiver confirmed with patient/requestor that no other refills are due, in the near future, with this provider at this time: Yes The last office visit in the department: 02/13/2024 Does the patient have a future office visit with this provider/department: Yes Requested Prescriptions Pending Prescriptions Disp Refills fexofenadine (ANÍBAL) 180 mg tablet 90 tablet 3 Sig: Take 1 tablet by mouth once daily. Gricelda Lloyd LPN May 09, 2024 5:25 PM documented in this encounter [facility] 05-09-2024 Telephone encounter Note Prescription Refill Information The patient has been identified by name and date of : Yes Caregiver verified no other encounters exist for this prescription request: Yes Caregiver confirmed with patient/requestor that no other refills are due, in the near future, with this provider at this time: Yes The last office visit in the department: 02/13/2024 Does the patient have a future office visit with this provider/department: Yes Requested Prescriptions Pending Prescriptions Disp Refills fexofenadine (ANÍBAL) 180 mg tablet 90 tablet 3 Sig: Take 1 tablet by mouth once daily. Gricelda Lloyd LPN May 09, 2024 5:25 PM [facility] 05-08-2024 Telephone encounter Note The following approved medication requests have been transmitted electronically. Requested Prescriptions Signed Prescriptions Disp Refills pregabalin (LYRICA) 225 mg capsule 180 capsule 0 Sig: Take 1 capsule by mouth two times a day for 90 days. Authorizing Provider: EDINSON ZARATE MD [facility] 05-08-2024 Miscellaneous Notes The following approved medication requests have been transmitted electronically. Requested Prescriptions Signed Prescriptions Disp Refills pregabalin (LYRICA) 225 mg capsule 180 capsule 0 Sig: Take 1 capsule by mouth two times a day for 90 days. Authorizing Provider: EDINSON ZARATE MD Pharmacy verified in [email or web address]. Patient has been identified by name and date of : Yes Patient aware RX will be sent to pharmacy. No need to notify patient. Patient phones for refill(s): Requested Prescriptions Pending Prescriptions Disp Refills pregabalin (LYRICA) 225 mg capsule 180 capsule 0 Sig: Take 1 capsule by mouth two times a day for 90 days. Date of last office visit : 02/13/2024 Date of next office visit : Visit date not found Last 2 Encounter Wt Readings: Date: Wt: 04/10/2024 128 kg (282 lb 3 oz) 04/03/2024 129.8 kg (286 lb 2.5 oz) Not applicable Please advise. yLnsey Townsend MA documented in this encounter [facility] 05-08-2024 Telephone encounter Note Pharmacy verified in [email or web address]. Patient has been identified by name and date of : Yes Patient aware RX will be sent to pharmacy. No need to notify patient. Patient phones for refill(s): Requested Prescriptions Pending Prescriptions Disp Refills pregabalin (LYRICA) 225 mg capsule 180 capsule 0 Sig: Take 1 capsule by mouth two times a day for 90 days. Date of last office visit : 02/13/2024 Date of next office visit : Visit date not found Last 2 Encounter Wt Readings: Date: Wt: 04/10/2024 128 kg (282 lb 3 oz) 04/03/2024 129.8 kg (286 lb 2.5 oz) Not applicable Please advise. Lynsey Townsend MA [facility] 04-30-2024 Telephone encounter Note Labs noted: (+) dsDNA, SENIOR SUPPLIER QUALITY ENGINEER, chromatin as before (+) LAC now MC message to patient. Pat Seo MD [facility] Work Phone: 04-30-2024 Miscellaneous Notes Labs noted: (+) dsDNA, SENIOR SUPPLIER QUALITY ENGINEER, chromatin as before (+) LAC now MC message to patient. Pat Seo MD documented in this encounter [facility] 04-23-2024 Instructions Katelyn Fernandez PA-C - 04/23/2024 11:33 AM EDT Zayda, I would like to thank you for spending time with me today and taking time to invest in your health. Below I have outlined some recommendations, I highly encourage you to work on. My recommendations only go so far, you have to do the work. Please reach our for support and questions via [employer]. Referrals: - Acupuncture call [phone] Nutrition: - consider a trial of dairy elimination (milk, ice cream, cottage cheese, etc) to see if it helps the nasal congestion and post nasal drip. See handout for a general list of whole foods to eat, but this is a good idea right now General healthy recommendations: Aim for 4-5 servings (1 cup) vegetables. The more colorful the better. Aim for 2-3 servings (1 cup) of whole fruit Try to get 100 + grams of protein/day. Fiber - aim for > 25 grams/day for women and >38 grams/day men. Work your way up to this if you are not already at this amount. Going up to fast can result in excess bloating. Add healthy fats - avocado, salmon, nuts (pistachio, almond, walnut), seed ([place], sunflower), EVOO, avocado oil (avoid fried foods, vegetable oil, canola oil) Limit added sugar to <25 grams a day for women and <38 grams a day for men Aim to drink half of your body weigh in water daily Aim for 30 minutes of vigorous activity 5 days a week or 7000 steps/day. Preferably some weight training as well for strong muscle and bones. Protein per serving [place] (3 oz) = 17.4 grams Beef (3 oz) = 22 grams Chicken (3 oz) = 19.6 grams Soy beans (1 cup)= 28.5 grams Lentil (1 cup) = 17.9 grams Nagel beans/chickpeas = 19 grams per 1 cup Recipes: all anti-inflammatory [email or web address] Movement - [facility] wellness videos Go to [email or web address] Yoga - Come As You Are (gentle chair yoga) Mahesh Chi Relaxation for chronic pain - guided meditations Relieve, Relax, Recharge - different meditations available Free wellness classes online (meditation, yoga, fitness) See the schedule and sign up for classes at: [email or web address] To set up a private one-hour yoga session with Monica Meng please call [phone] option 4 or email [email or web address]. Sleep hygiene recommendations: - Create a consistent sleep-wake schedule of 7-9 hours per night. Go to bed and wake up around the same time each day, including on weekends. - Avoid all electronics for 30-60 minutes before bed (TV, tablet, computer, smartphone, Horace) because the light from the screens can disrupt sleep. Move your TV out of the bedroom to help with sleep. - Use that time before bed for calming activities like yoga, stretching, meditation, reading a book, or taking an Epsom salt bath. You can also exercise before bed if it helps with sleep. - If you are awake during the night for more than 30 minutes, go to another room and do something relaxing (see list above). Avoid using electronics during this time. Return to bed when sleepy. - Sleep in a cool (60-70 degrees), dark and quiet bedroom. Use earplugs and an eye mask if needed. Use night-lights in the bedroom and bathroom to avoid turning on the light at night. - Avoid food and beverages 2-3 hours before bed. For acid reflux - Eating hygiene is very important to help withy gas, bloating, distention, overly full after a meal, belching, mild reflux. These are simple tips you can start with. Slow Down and CHEW your food thoroughly. This helps with digestion of the food that you are eating and get the most nutrients out of it. The less we chew our food, the harder our GI tract has to work. This creates post-meal fatigue. This can reduce gas and increase post-meal energy. Chew every bite 20-30 times or until it is liquid. Sit down. When we eat in a way that doesn t allow our nervous system to fully relax and move into parasympathetic mode, we literally put out less digestive fluids. Breathe and relax. The body needs oxygen to properly digest. Help calm your body and support digestion by taking a few, slow, calming breaths when you sit down to a meal - before you start eating. Relax and Savor. Try to learn to just be in the moment with your food. Colors, textures, aromas, flavors Most of us are mentally elsewhere while we eat. The result? The brain tends to miss out on the entertainment, and we are much more likely to overeat. Distraction increases food intake. Postpone stressful discussions, replying to tense emails, or paying bills until later. Don t Drink too much during meals. Yes, we need to be hydrated and focus on plain, clean water intake for overall wellness. However, the best time to hydrate is in between meals. When you consume large amounts of water during a meal, you dilute the acidity of your stomach acid and slow digestion. Depending on your sensitivity, this can cause an early sense of fullness and belching and long-term can cause malnutrition (especially low Vitamin B12, magnesium or iron). Supplements if you like: - Magnesium Glycinate 150-400 mg - take before bed. Look for buffered or chelated magnesium for best absorption such as [employer] Magnesium Buffered Chelate. - Slippery [place]m also lozenges also help with soothing the throat/mucosal membrane. Suck on them most of the evening. documented in this encounter [facility] 04-23-2024 History of Present illness Narrative Images from the original note were not included. Wellness Consultation Mr.Paul Neto De La Vega is a 73 year old male is here for a wellness and preventive medicine initial consultation. Consultation requested by Jerry Dickson PA-C for an opinion regarding living with chronic pain. My final recommendations will be communicated back to the requesting physician by way of shared Medical record. Chief complaint: pain HPI: 73 year old male with a history of SLE, neuropathy, MARCELINA and GERD presents with OA (bilateral hip and shoulder replacements), but now mostly in feet. 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 [facility] His pain is mostly muscle, tendons and burning skin on UE and LE. He also has some muscle weakness and pain. He also has neuropathy in hands and feet. TENS unit did not help the back pain in the past. Psychosocial: Nutrition: emotional eater, lactose free milk, B: toast x 2 with peach jelly, corn flakes at times with raisins, L: 1.5 cups cottage cheese, blueberries, toast, cornchips D: meat, vegetable, fruit, salad, sweet potato HF: supplement, nuts and seeds (on occasion) V: 1-2 F: 1-2 Water: a lot Alcohol: twice a month beer, scotch Caffeine: coffee 2 cup/1/2 caf BM: occasional diarrhea, and lots of gas new, daily x 1 year Sleep: trouble falling asleep - Hours 11 pm/4 am - 8am/10 am - Awakening - restless all night - Quality - MARCELINA with CPAP Movement/exercise - no due to nerve pain/OA Stress - mild, off ativan for many years Coping Mechanisms - prayer, reading Background Relationships and Social Network - lives with , outside family relationship 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 Belle Arthritis of both hips Benign neoplasm of colon Bipolar disorder (HCC) Dr. Belle DDD (degenerative disc disease), lumbar Depressive disorder, not elsewhere classified Diverticulosis of colon (without mention of hemorrhage) HLD (hyperlipidemia) 06/13/2017 Hypertension Internal hemorrhoids without mention of complication Monoclonal paraproteinemia Morbid obesity (HCC) MARCELINA (obstructive sleep apnea) 1997 BiPAP Peripheral neuropathy Prediabetes 09/11/2019 Seasonal allergies Shoulder arthritis Systemic lupus erythematosus (HCC) 10/2021 PAST SURGICAL HISTORY Procedure Laterality Date ARTHROPLASTY TOTAL SHOULDER 04/03/2013 Right shoulder replacement ARTHRP ACETBLR/PROX FEM PROSTC AGRFT/ALGRFT 1992 Hip replacement, total RIGHT BACK SURGERY HX COLONOSCOPY FLX DX W/COLLJ SPEC WHEN PFRMD 08/11/1992 Colonoscopy COLONOSCOPY FLX DX W/COLLJ SPEC WHEN PFRMD 09/01/2018 Colonoscopy COLSC FLX W/RMVL OF TUMOR POLYP LESION SNARE TQ 06/26/2008 ESOPHAGOGASTRODUODENOSCOPY TRANSORAL DIAGNOSTIC 05/08/2020 EGD JOINT REPLACEMENT HX PAST SURGICAL HISTORY OF 1995 L5-S1 spinal fusion with pins, rods, and bolts PAST SURGICAL HISTORY OF 03/2011 Right hip revision PAST SURGICAL HISTORY OF 1970 right shoulder surgery PAST SURGICAL HISTORY OF Left 2018 shoulder replacement REVISE MEDIAN N/CARPAL TUNNEL SURG Left 01/25/2024 Left wrist, revision carpal tunnel release with neurolysis and nerve wrap. Synovial biopsy ALLERGIES Allergen Reactions Aspartame Swelling Pt gets burning sensation under skin Betadine [Povidone-* Rash Blister Cymbalta [Duloxetin* Other: See Comments Sweating Lisinopril Cough Cough Losartan Cough Niacin Other: See Comments Niacin-Dermid Burning pain all over Penicillins Rash Seasonal Allergies Other: See Comments GRASS POLLEN-positive skin test 09-05-13 Sudafed [Pseudoephe* Other: See Comments Difficulty swallowing, swelling of tongue & lips Tamiflu [Oseltamivi* Shortness of Breath SOB, arm pain Trazodone Shortness of Breath Ultram [Tramadol] Per patient contraindication due to wellbutrin Current Outpatient Medications on File Prior to Visit Medication Sig fluticasone-salmeterol (ADVAIR DISKUS) 250-50 mcg/dose inhaler Inhale 1 Puff as instructed two times a day. tamsulosin (FLOMAX) 0.4 mg Take 1 capsule by mouth daily at bedtime. CPAP/BIPAP/OTHER Replacement autobipap 20/06 with PS of 5cmH2O DME [employer] pregabalin (LYRICA) 225 mg capsule Take 1 capsule by mouth two times a day for 90 days. meloxicam (MOBIC) 15 mg tablet Take 1 tablet by mouth once daily. hydrOXYchloroQUINE (PLAQUENIL) 200 mg tablet Take 1 tablet by mouth two times a day. azelastine 0.1% nasal spray Use 1 [place] in each nostril two times a day. fluticasone (FLONASE) 50 mcg/actuation nasal spray USE 2 SPRAYS IN EACH NOSTRIL ONCE DAILY amLODIPine (NORVASC) 5 mg tablet Take 1 tablet by mouth once daily. metoprolol succinate ER (TOPROL XL) 25 mg 24 hr tablet Take 2 tablets by mouth once daily. guaiFENesin (MUCINEX) 600 mg 12 hr tablet Take 1,200 mg by mouth twice daily as needed for cold/allergy symptoms. fish oil/borage/flax/om3,6,9 1 (OMEGA 3-6-9 ORAL) Take by mouth. fexofenadine (ANÍBAL) 180 mg tablet TAKE 1 TABLET DAILY alpha lipoic acid (LIPOIC ACID ORAL) Take by mouth. ZINC ORAL Take by mouth. LYSINE ORAL Take by mouth. CPAP Continue BiPAP with new settings: @ 14/8 cm of water with humidification. No new equipment is needed. aspirin, enteric coated (ASPIRIN, ENTERIC COATED) 81 mg EC tablet Take 81 mg by mouth once daily. IRON, FERROUS SULFATE, ORAL Take by mouth once daily. ASCORBIC ACID (VITAMIN C ORAL) Take by mouth once daily. buPROPion (WELLBUTRIN) 75 mg tablet Take 150 mg by mouth twice daily. No current facility-administered medications on file prior to visit. Social History Tobacco Use Smoking status: Former Packs/day: 1.00 Years: 10.00 Additional pack years: 0.00 Total pack years: 10.00 Types: Cigarettes Quit date: 10/27/1983 Years since quittin.5 Smokeless tobacco: Never Vaping Use Vaping Use: Never used Substance Use Topics Alcohol use: Yes Comment: very rarely Drug use: No FAMILY HISTORY Problem Relation Age of Onset Cancer Mother skin Cancer Father KIDNEY other (Brain Tumor) Father Cancer Sister thyroid No Known Problems Brother Anesthesia Problems No Family History Patient-Entered Questionnaires 08/01/2023 02/21/2024 03/31/2024 [facility] Physical Function PROMIS Physical Function T-Score 31 (moderate dysfunction) 32 (moderate dysfunction) 34 (moderate dysfunction) 04/16/2023 02/21/2024 03/31/2024 [facility] Pain Interference PROMIS Pain Interference T-Score (range: 10 - 90) 66 (moderate) 63 (moderate) 69 (moderate) 04/16/2023 02/21/2024 03/31/2024 [facility] Fatigue PROMIS Fatigue T-Score 64 (moderate) 63 (moderate) 64 (moderate) 05/25/2021 02/21/2024 04/22/2024 [facility] Satisfaction with Social Roles PROMIS - Satisfaction with Participation in Social Roles T-Score 46 (Average) 39 (Low) 46 (Average) 04/22/2024 [facility] Anxiety PROMIS Anxiety T-Score 58 (mild) 05/25/2021 02/11/2024 04/22/2024 [facility] Sleep Disturbance PROMIS Sleep Disturbance T-Score 58 (mild) 58 (mild) 59 (mild) 04/22/2024 [facility] NEUROQOL COGNITIVE T-SCORE PROMIS Neuroqol Cognitive T-Score 40 (moderate dysfunction) REVIEW OF SYSTEMS: Denies constipation, denies headaches, +joint pain, +muscle pain Physical Exam BP 126/63 (BP Site: Right Arm, BP Position: Sitting, BP Cuff Size: Extra Large Adult) Pulse (!) 58 GENERAL: Well groomed, well appearing, no acute distress, obese HEENT: glasses, sclera anicteric, pinpoint pupils, pink tongue NEURO: antalgic gait with a cane, alert and oriented x 3 EXT: Normal extremities, enlarged joints in hands noted PREVIOUS STUDIES: Pertinent labs/imaging: Latest Ref Rng 02/13/2024 WBC 3.70 - 11.00 k/uL 6.69 RBC 4.20 - 6.00 m/uL 4.31 Hemoglobin 13.0 - 17.0 g/dL 12.9 (L) Hematocrit 39.0 - 51.0 % 40.7 MCV 80.0 - 100.0 fL 94.4 MCH 26.0 - 34.0 pg 29.9 MCHC 30.5 - 36.0 g/dL 31.7 RDW-CV 11.5 - 15.0 % 13.7 Platelet Count 150 - 400 k/uL 312 Latest Ref Rng 02/06/2024 Protein, Total 6.3 - 8.0 g/dL 6.2 (L) Albumin 3.9 - 4.9 g/dL 3.8 (L) Calcium 8.5 - 10.2 mg/dL 9.1 Bilirubin, Total 0.2 - 1.3 mg/dL 0.3 Alkaline Phosphatase 38 - 113 U/L 63 AST 14 - 40 U/L 18 ALT 10 - 54 U/L 16 Glucose 74 - 99 mg/dL 111 (H) BUN 9 - 24 mg/dL 13 Creatinine 0.73 - 1.22 mg/dL 0.73 Sodium 136 - 144 mmol/L 139 Potassium 3.7 - 5.1 mmol/L 4.6 Chloride 97 - 105 mmol/L 107 (H) CO2 22 - 30 mmol/L 23 Latest Ref Rng 02/28/2024 Prealbumin 17 - 36 mg/dL 24 Latest Ref Rng 02/06/2024 Hemoglobin A1C 4.3 - 5.6 % 5.8 (H) Estimated Average Glucose mg/dL 120 IMPRESSION: Mr. Zayda De La Vega is a 73 year old year old male with a history of SLE, MARCELINA, neuropathy and chronic pain referred by Damaris Gudino PA-C for a wellness and preventive medicine consultation. Current wellness challenges: nutrient poor diet, lack of exercise, pain, sleep schedule/insomnia. A wellness and preventive medicine approach was discussed with the patient including risks, benefits, and alternatives. He agrees to proceed. It was emphasized that he should continue with all of her current treating caregivers's recommendations. Treatment plan/recommendations: (G89.4) Chronic pain syndrome (primary encounter diagnosis) (M32.9) Systemic lupus erythematosus, unspecified SLE type, unspecified organ involvement status (HCC) (R20.0, R20.2) Numbness and tingling of foot (G62.9) Polyneuropathy, unspecified (M54.42, M54.41, G89.29) Chronic bilateral low back pain with bilateral sciatica Comment: Plan: - CONSULT FOR ACUPUNCTURE - Chair yoga - Breathing/meditation - Whole food/low processed/anti-inflammatory diet - focus on sleep - Magnesium may help muscles/sleep - He is already taking a lot of stuff, so we did not discuss yet, but consider curcumin (F41.9, F32.A) Anxiety and depression (F33.9) Major depression, recurrent, chronic (HCC) Comment: Plan: - CONSULT FOR ACUPUNCTURE - Chair yoga - Breathing/meditation - Whole food/low processed/anti-inflammatory diet - focus on sleep - Magnesium may help muscles/sleep (K21.9) GERD without esophagitis Comment: seems to be PND, then cough, then congestion and keeping him awake Plan: - 7 day trial of complete dairy elimination to avoid thickened mucous - Slippery elm (G47.9) Sleep disturbance Comment: due to cough, congestions, restlessness Plan: - Sleep hygiene - dairy elimination trial - magnesium It has been a pleasure to see Mr. Zayda De La Vega for a wellness and preventive medicine consultation. I have asked Zayda De La Vega to return to see me 3-6 mo depending on acupuncture. Thank you for the referral or interest in caring for your whole body and mind. I spent a total of 60 minutes on the date of the service which included preparing to see the patient, [id number] patient care, completing clinical documentation, obtaining and/or reviewing separately obtained history, performing a medically appropriate examination, counseling and educating the patient/family/caregiver, communicating with other HCPs (not separately reported), independently interpreting results (not separately reported), and communicating results to the patient/family/caregiver. documented in this encounter [facility] 04-12-2024 History of Present illness Narrative POPULATION HEALTH NAVIGATION OUTREACH Action/FYI Spoke to patient regarding Annual Medicare Wellness and patient declined scheduling. Reason for Outreach Care Gap/HCC or Scheduling Wellness Visits Care Gaps due: Medicare Annual Wellness Visit Patient Contacted: Spoke to patient/parent/or legal guardian Patient identified by name and : Yes Care Gap/HCC/Scheduling Wellness actions taken: Patient declined: Doesn't feel it's necessary Navigation Signature: Radha Araya MA April 12, 2024 1:14 PM documented in this encounter [facility] 04-10-2024 History of Present illness Narrative Images from the original note were not included. [facility] ESTABLISHED PATIENT OFFICE VISIT HISTORY OF PRESENT ILLNESS: Zayda De La Vega is a 73 year old male who presents today for follow-up. Past medical history is also significant for Lupus, morbid obesity. Former smoker. Most recent pulmonary office visit was on 09/13/[address] Holcomb. Recommendations from that office visit were as follows: -Dyspnea likely due to his recent COVID infection and his morbid obesity -No evidence of lung disease related to his lupus, i.e. interstitial lung disease and no clinical history of diaphragmatic myopathy -Pulmonary function tests including MIP/MIP and exhaled nitric oxide level to rule out airways disease -Ambulatory oxygen assessment Today, the patient reports he is doing ok since last office visit. He reports an increase in shortness of breath and fatigue. 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 He has been having these symptoms increase in the last 6 months. He has a cough that he started taking pepsid for, and it has since gone away. No wheezing. Denies fever, chills, night sweats, hemoptysis, chest pain, LE edema and unintentional weight loss or gain. He is currently being worked up for amyloidosis No recent ED visits or hospitalizations, steroid or antibiotic use MMRC Dyspnea Scale: 0. Not troubled by breathlessness except on strenuous exercise Short of breath when hurrying or walking up a slight hill Walks slower than contemporaries on the level because of breathlessness, or has to stop for breath when walking at own pace Stops for breath after about 100 m or after a few minutes on the level Too breathless to leave the house, or breathless when dressing or undressing ROS: REVIEW OF SYSTEMS: Constitutional: Denies malaise, fever/chills, night sweats, weight loss. HEENT: Denies headache, rhinorrhea, sore throat RESPIRATORY: See HPI, reports shortness of breath, cough, wheezing CARDIOVASCULAR: Denies chest pain, palpitations The remainder of the ROS were reviewed and negative. Current Outpatient Medications Medication Sig Dispense Refill HYDROcodone-acetaminophen (NORCO) 5-325 mg per tablet Take 1 tablet by mouth every 8 hours as needed for pain for up to 30 days. 90 tablet 0 tamsulosin (FLOMAX) 0.4 mg Take 1 capsule by mouth daily at bedtime. 90 capsule 1 CPAP/BIPAP/OTHER Replacement autobipap 20/06 with PS of 5cmH2O DME [employer] 1 Each 0 pregabalin (LYRICA) 225 mg capsule Take 1 capsule by mouth two times a day for 90 days. 180 capsule 0 meloxicam (MOBIC) 15 mg tablet Take 1 tablet by mouth once daily. 90 tablet 1 hydrOXYchloroQUINE (PLAQUENIL) 200 mg tablet Take 1 tablet by mouth two times a day. 180 tablet 1 azelastine 0.1% nasal spray Use 1 [place] in each nostril two times a day. 30 mL 6 fluticasone (FLONASE) 50 mcg/actuation nasal spray USE 2 SPRAYS IN EACH NOSTRIL ONCE DAILY 16 g 11 amLODIPine (NORVASC) 5 mg tablet Take 1 tablet by mouth once daily. 90 tablet 3 metoprolol succinate ER (TOPROL XL) 25 mg 24 hr tablet Take 2 tablets by mouth once daily. 180 tablet 3 guaiFENesin (MUCINEX) 600 mg 12 hr tablet Take 1,200 mg by mouth twice daily as needed for cold/allergy symptoms. fish oil/borage/flax/om3,6,9 1 (OMEGA 3-6-9 ORAL) Take by mouth. fexofenadine (ANÍBAL) 180 mg tablet TAKE 1 TABLET DAILY 90 tablet 3 alpha lipoic acid (LIPOIC ACID ORAL) Take by mouth. ZINC ORAL Take by mouth. LYSINE ORAL Take by mouth. CPAP Continue BiPAP with new settings: @ 14/8 cm of water with humidification. No new equipment is needed. 1 Device 0 aspirin, enteric coated (ASPIRIN, ENTERIC COATED) 81 mg EC tablet Take 81 mg by mouth once daily. IRON, FERROUS SULFATE, ORAL Take by mouth once daily. ASCORBIC ACID (VITAMIN C ORAL) Take by mouth once daily. buPROPion (WELLBUTRIN) 75 mg tablet Take 150 mg by mouth twice daily. No current facility-administered medications for this visit. I have reviewed and updated the medication list in the EMR. ALLERGIES Allergen Reactions Aspartame Swelling Pt gets burning sensation under skin Betadine [Povidone-* Rash Blister Cymbalta [Duloxetin* Other: See Comments Sweating Lisinopril Cough Cough Losartan Cough Niacin Other: See Comments Niacin-Dermid Burning pain all over Penicillins Rash Seasonal Allergies Other: See Comments GRASS POLLEN-positive skin test 09-05-13 Sudafed [Pseudoephe* Other: See Comments Difficulty swallowing, swelling of tongue & lips Tamiflu [Oseltamivi* Shortness of Breath SOB, arm pain Trazodone Shortness of Breath Ultram [Tramadol] Per patient contraindication due to wellbutrin IMMUNIZATIONS: Immunization History Administered Date(s) Administered COVID-19 original vaccine, booster dose, monovalent (MODERNA) 05/05/2022 COVID-19 original vaccine, full dose, monovalent (MODERNA) 11/06/2020 12/04/2020 08/05/2021 TD Adult 03/03/2004 influenza (HD-IIV3) vaccine, age 65+ yr, high dose, PF (FLUZONE HIGH-DOSE) 07/24/2015 06/25/2016 07/18/2017 08/18/2018 07/10/2019 influenza (HD-IIV4) vaccine, age 65+ yr, high dose, quadrivalent, PF (FLUZONE HIGH-DOSE) 07/25/2020 07/11/2021 07/22/2022 influenza (IIV3) vaccine, age 3+ yr, trivalent (AFLURIA, FLULAVAL, FLUVIRIN, FLUZONE) 08/21/2014 influenza (aIIV4) vaccine, age 65+ yr, quadrivalent, PF (FLUAD QUAD) 08/12/2023 influenza vaccine, unspecified formulation 08/02/2008 07/21/2011 07/10/2012 07/28/2013 pneumococcal conjugate (PCV13) vaccine, 13 valent (PREVNAR 13) 08/12/2015 pneumococcal polysaccharide (PPV23) vaccine, 23 valent (PNEUMOVAX 23) 08/03/2008 08/10/2008 07/01/2014 pneumococcal vaccine, unspecified formulation 08/03/2008 respiratory syncytial virus (RSV) vaccine, adjuvanted (AREXVY) 09/30/2023 tetanus diphtheria pertussis (Tdap) vaccine, age 7+ yr (ADACEL, BOOSTRIX) 09/02/2010 09/02/2010 10/02/2020 10/02/2020 zoster (RZV) vaccine, recombinant (SHINGRIX) 05/28/2022 08/05/2022 zoster (ZVL) vaccine, live (ZOSTAVAX) 08/03/2009 08/03/2009 PHYSICAL EXAMINATION: VITAL SIGNS:BP 157/82 (BP Site: Left Arm, BP Position: Sitting, BP Cuff Size: Large Adult) Pulse (!) 57 Ht 172.1 cm (5' 7.76) Wt 128 kg (282 lb 3 oz) SpO2 96% BMI 43.22 kg/m GENERAL: Well appearing, in no apparent distress. HEENT: Sclera anicteric. no visible nasal discharge. Lips, tongue, and buccal mucosa no cyanosis or erythema. CV: Regular rate and rhythm. no LE edema. PULM: Unlabored breathing, no use of accessory muscles, lung sounds are clear bilaterally. MSK: Extremities warm and well perfused. no cyanosis. NEURO: A&O x 3. Answers questions appropriately. PSYCH: Mood and affect appropriate for situation. DATA REVIEW: I have personally reviewed the following: Michael - 09/24/2022: IMPRESSION: Spirometry shows no obstruction.The reduced FVC suggests restriction. Recommend lung volumes if clinically indicated. The TLC is reduced indicating mild restriction. The presence of a reduced lung diffusion capacity - that normalizes when measured independent of alveolar volume (kCO) is consistent with a nonparenchymal disorder but does not rule out parenchymal or pulmonary vascular disorder. Maximum inspiratory and expiratory pressures are normal. ASSESSMENT & PLAN: ASSESSMENT/PLAN: 1. Shortness of breath - ICD9: 786.05, ICD10: R06.02 (primary diagnosis) 2. Post-COVID chronic dyspnea - ICD9: 786.09, 139.8, ICD10: R06.09, U09.9 3. Morbid obesity with body mass index (BMI) of 40.0 to 44.9 in adult (HCC) - ICD9: 278.01, V85.41, ICD10: E66.01, Z68.41 -Shortness of breath likely multifactorial from covid and morbid obesity -PFTs normal will repeat next visit -Will trial advair again - benefited from it in the past -Albuterol as needed - SPIROMETRY WITH DILATOR IF OBSTRUCTED - LUNG DIFFUSION CAPACITY (DLCO) - OXIMETRY WITH AMBULATION 4. Obstructive sleep apnea on CPAP - ICD9: 327.23, ICD10: G47.33 -Is using nightly and benefiting from therapy 5. GERD without esophagitis - ICD9: 530.81, ICD10: K21.9 -Continue PPI -Helping with cough 6. Systemic lupus erythematosus, unspecified SLE type, unspecified organ involvement status (HCC) - ICD9: 710.0, ICD10: M32.9 -Following with rheumatology I have discussed the above recommendations in detail with the patient. Patient verbalizes understanding and is in agreement with plan as stated above. Adilia Auguste APRN-DISTRICT RESOURCE OFFICER documented in this encounter [facility] 04-10-2024 Procedure note Associated Ord er(s): NITRIC OXIDE, EXHALED RESPIRATORY THERAPY ORAL EXHALED NITRIC OXIDE SERVICE DATE: 04/10/2024 SERVICE TIME: 1:46 PM Oral Exhaled Nitric Oxide measurement: 18.0 (ppb) Normal: Adult <25 ppb, pediatric (<12 years) <20 ppb High Normal / Increased: Adult 25-50 ppb, pediatric (<12 years) 20-35 ppb Moderately raised exhaled Nitric Oxide may indicate underlying inflammation, but note that: Cold and influenza can raise exhaled Nitric Oxide and some patients have higher baseline exhaled Nitric Oxide levels than others. High: Adult >50 ppb, pediatric (<12 years) >35 ppb Indicative of ongoing eosinophilic inflammation. Symptomatic patient likely to respond to steroids. Possible causes (if already on steroids): Poor compliance, recent allergen exposure, steroid dose inadequate, and steroid resistance. Note that not all patients with high exhaled nitric oxide levels display symptoms. Oral Exhaled Nitric Oxide measurement (Previous Encounters) Test Date Oral Exhaled Nitric Oxide (ppb) 04/10/2024 18.0 09/24/2022 33.0 NAME: Adam Arrington, SOLUTION STRATEGIST PATIENT NAME: Zayda De La Vega DATE: April 10, 2024 TIME: 1:46 PM [facility] 04-10-2024 Procedure note Associated Ord er(s): NITRIC OXIDE, EXHALED RESPIRATORY THERAPY ORAL EXHALED NITRIC OXIDE SERVICE DATE: 04/10/2024 SERVICE TIME: 1:46 PM Oral Exhaled Nitric Oxide measurement: 18.0 (ppb) Normal: Adult <25 ppb, pediatric (<12 years) <20 ppb High Normal / Increased: Adult 25-50 ppb, pediatric (<12 years) 20-35 ppb Moderately raised exhaled Nitric Oxide may indicate underlying inflammation, but note that: Cold and influenza can raise exhaled Nitric Oxide and some patients have higher baseline exhaled Nitric Oxide levels than others. High: Adult >50 ppb, pediatric (<12 years) >35 ppb Indicative of ongoing eosinophilic inflammation. Symptomatic patient likely to respond to steroids. Possible causes (if already on steroids): Poor compliance, recent allergen exposure, steroid dose inadequate, and steroid resistance. Note that not all patients with high exhaled nitric oxide levels display symptoms. Oral Exhaled Nitric Oxide measurement (Previous Encounters) Test Date Oral Exhaled Nitric Oxide (ppb) 04/10/2024 18.0 09/24/2022 33.0 NAME: Adam Arrington RRT PATIENT NAME: Zayda De La Vega DATE: April 10, 2024 TIME: 1:46 PM documented in this encounter [facility] 04-10-2024 History of Present illness Narrative PULM FUNCTION: Provider: Adilia Auguste APRN.DISTRICT RESOURCE OFFICER Assisting Tech: Adam Arrington RRT Exhaled Nitric Oxide: 1 documented in this encounter [facility] 04-08-2024 Telephone encounter Note Reviewed case through EMR with Pulmonary team. They will reach out to patient to see him back. Pat Seo MD [facility] Work Phone: 04-08-2024 Miscellaneous Notes Reviewed case through EMR with Pulmonary team. They will reach out to patient to see him back. Pat Seo MD documented in this encounter [facility] 04-06-2024 Telephone encounter Note Mr De La Vega was reached at [phone]. 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 Discussed plan to continue close observation of labs and refer to genetic counseling for further investigation of ttr amyloid. A referral to [facility] 04-06-2024 Miscellaneous Notes Mr De La Vega was reached at [phone]. 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 Discussed plan to continue close observation of labs and refer to genetic counseling for further investigation of ttr amyloid. A referral to documented in this encounter [facility] 04-03-2024 Instructions Pat Seo MD - 04/03/2024 3:06 PM EDT Do new labs for me Blood and urine But, wait to see if Hematology needs new labs I will get you scheduled with me for a 6 month follow up documented in this encounter [facility] 04-03-2024 History of Present illness Narrative RHEUMATOLOGY FOLLOW UP NOTE PROVIDER: Pat Seo MD DATE OF VISIT: 04/03/2024 PATIENT NAME: Zayda LUTHER CHIEF COMPLAINT / REASON FOR VISIT: Lupus SUBJECTIVE / INTERIM HISTORY: Patient returns for follow-up. Last seen here 1 year ago. Since last visit: Old problems: 1. Lupus No new specific issues Has chronic MSK pains 2. Neuropathy On Lyrica 3. Gammopathy Seeing Heme 4. Ophtho exam for HCQ UTD 5. Hx of possible ILD Never saw Heme back New problems: 1. Found amyloid on carpal tunnel surgery 2. BM biopsy with some clonal populations Seeing Hematology 3. Had recent echocardiogram from Hematology REVIEW OF SYSTEMS: Review of Systems CONSTITUTION: Negative for: Fever and Recent weight change HEENT: Positive for: Mouth sores, Trouble swallowing and Dry mouth Negative for: Nosebleeds RESPIRATORY: Positive for: Cough and Shortness of breath Negative for: Pain with breathing and Coughing up blood GASTROINTESTINAL: Positive for: Diarrhea and Heartburn Negative for: Melena and Abdominal pain MUSCULOSKELETAL: Positive for: Arthralgias, Myalgias, Muscle weakness, Joint swelling and Morning Joint Stiffness NEUROLOGICAL: Positive for: Numbness Negative for: Headaches and Memory loss SKIN: Negative for: Rash, Skin changes, Hair loss and Nail changes EYES: Negative for: Eye pain, Eye redness, Eye dryness and visual disturbance CARDIOVASCULAR: Positive for: Leg swelling Negative for: Chest pain GENITOURINARY: Negative for: Dysuria and Hematuria HEMATOLOGIC/LYMPHATIC: Negative for: Swollen glands PAST MEDICAL AND SURGICAL HISTORY PAST MEDICAL HISTORY Diagnosis Date Anxiety Dr. Belle Arthritis of both hips Benign neoplasm of colon Bipolar disorder (HCC) Dr. Belle DDD (degenerative disc disease), lumbar Depressive disorder, not elsewhere classified Diverticulosis of colon (without mention of hemorrhage) HLD (hyperlipidemia) 06/13/2017 Hypertension Internal hemorrhoids without mention of complication Monoclonal paraproteinemia Morbid obesity (HCC) MARCELINA (obstructive sleep apnea) 1998 BiPAP Peripheral neuropathy Prediabetes 09/11/2019 Seasonal allergies Shoulder arthritis Systemic lupus erythematosus (HCC) 10/2021 PAST SURGICAL HISTORY Procedure Laterality Date ARTHROPLASTY TOTAL SHOULDER 04/03/2013 Right shoulder replacement ARTHRP ACETBLR/PROX FEM PROSTC AGRFT/ALGRFT 1992 Hip replacement, total RIGHT BACK SURGERY HX COLONOSCOPY FLX DX W/COLLJ SPEC WHEN PFRMD 08/11/1992 Colonoscopy COLONOSCOPY FLX DX W/COLLJ SPEC WHEN PFRMD 09/01/2018 Colonoscopy COLSC FLX W/RMVL OF TUMOR POLYP LESION SNARE TQ 06/26/2008 ESOPHAGOGASTRODUODENOSCOPY TRANSORAL DIAGNOSTIC 05/08/2020 EGD JOINT REPLACEMENT HX PAST SURGICAL HISTORY OF 1995 L5-S1 spinal fusion with pins, rods, and bolts PAST SURGICAL HISTORY OF 03/2011 Right hip revision PAST SURGICAL HISTORY OF 1970 right shoulder surgery PAST SURGICAL HISTORY OF Left 2018 shoulder replacement REVISE MEDIAN N/CARPAL TUNNEL SURG Left 01/25/2024 Left wrist, revision carpal tunnel release with neurolysis and nerve wrap. Synovial biopsy SOCIAL AND FAMILY HISTORY FAMILY HISTORY Problem Relation Age of Onset Cancer Mother skin Cancer Father KIDNEY other (Brain Tumor) Father Cancer Sister thyroid No Known Problems Brother Anesthesia Problems No Family History Social History Tobacco Use Smoking status: Former Packs/day: 1.00 Years: 10.00 Additional pack years: 0.00 Total pack years: 10.00 Types: Cigarettes Quit date: 10/27/1983 Years since quittin.4 Smokeless tobacco: Never Vaping Use Vaping Use: Never used Substance Use Topics Alcohol use: Yes Comment: very rarely Drug use: No CURRENT MEDICATIONS: Current Outpatient Medications Medication Sig HYDROcodone-acetaminophen (NORCO) 5-325 mg per tablet Take 1 tablet by mouth every 8 hours as needed for pain for up to 30 days. tamsulosin (FLOMAX) 0.4 mg Take 1 capsule by mouth daily at bedtime. CPAP/BIPAP/OTHER Replacement autobipap 18/9 with PS of 5cmH2O DME [employer] pregabalin (LYRICA) 225 mg capsule Take 1 capsule by mouth two times a day for 90 days. meloxicam (MOBIC) 15 mg tablet Take 1 tablet by mouth once daily. hydrOXYchloroQUINE (PLAQUENIL) 200 mg tablet Take 1 tablet by mouth two times a day. azelastine 0.1% nasal spray Use 1 [place] in each nostril two times a day. fluticasone (FLONASE) 50 mcg/actuation nasal spray USE 2 SPRAYS IN EACH NOSTRIL ONCE DAILY amLODIPine (NORVASC) 5 mg tablet Take 1 tablet by mouth once daily. metoprolol succinate ER (TOPROL XL) 25 mg 24 hr tablet Take 2 tablets by mouth once daily. guaiFENesin (MUCINEX) 600 mg 12 hr tablet Take 1,200 mg by mouth twice daily as needed for cold/allergy symptoms. fish oil/borage/flax/om3,6,9 1 (OMEGA 3-6-9 ORAL) Take by mouth. fexofenadine (ANÍBAL) 180 mg tablet TAKE 1 TABLET DAILY alpha lipoic acid (LIPOIC ACID ORAL) Take by mouth. ZINC ORAL Take by mouth. LYSINE ORAL Take by mouth. CPAP Continue BiPAP with new settings: @ 14/8 cm of water with humidification. No new equipment is needed. aspirin, enteric coated (ASPIRIN, ENTERIC COATED) 81 mg EC tablet Take 81 mg by mouth once daily. IRON, FERROUS SULFATE, ORAL Take by mouth once daily. ASCORBIC ACID (VITAMIN C ORAL) Take by mouth once daily. buPROPion (WELLBUTRIN) 75 mg tablet Take 150 mg by mouth twice daily. No current facility-administered medications for this visit. PHYSICAL EXAMINATION: General: Patient is alert and oriented. Appears healthy and well. Vital signs: BP 141/69 Pulse 60 Temp 36.8 C (98.2 F) (Temporal) Ht 172.7 cm (5' 8) Wt 129.8 kg (286 lb 2.5 oz) BMI 43.51 kg/m Skin: No rash, nodule or thickening. Eyes: No injection. PERRLA. Neck: No thyromegaly or mass. Lungs: Normal resp. effort. Clear to A & P. Heart: RRR without gallop, murmur or rub. Extremities: No edema. Pulses equal and normal. Musculoskeletal: Some OA features of hands and knees No new joint swellings Neurologic: Motor strength 5+ and equal. Normal DTRs, 2+ and symmetric. Sensory normal. DATA: Laboratory: Reviewed Latest Ref Rng 04/19/2023 02/13/2024 WBC 3.70 - 11.00 k/uL 6.69 RBC 4.20 - 6.00 m/uL 4.31 Hemoglobin 13.0 - 17.0 g/dL 12.9 (L) Hematocrit 39.0 - 51.0 % 40.7 MCV 80.0 - 100.0 fL 94.4 MCH 26.0 - 34.0 pg 29.9 MCHC 30.5 - 36.0 g/dL 31.7 RDW-CV 11.5 - 15.0 % 13.7 Platelet Count 150 - 400 k/uL 312 MPV 9.0 - 12.7 fL 8.8 (L) Neut% % 47.6 Abs Neut (ANC) 1.45 - 7.50 k/uL 3.18 Lymph% % 38.6 Abs Lymph 1.00 - 4.00 k/uL 2.58 [place]% % 9.[address] [place] <0.87 k/uL 0.61 Eosin% % 3.1 Abs Eosin <0.46 k/uL 0.21 Baso% % 0.7 Abs Baso <0.11 k/uL 0.05 Immature Gran % % 0.9 IMMATURE GRANS (ABS) <0.10 k/uL 0.06 NRBC /100 WBC 0.0 Absolute nRBC <0.01 k/uL <0.01 DTYPE Auto Protein, Total 6.3 - 8.0 g/dL 6.6 Albumin 3.9 - 4.9 g/dL 4.1 Calcium 8.5 - 10.2 mg/dL 9.0 Bilirubin, Total 0.2 - 1.3 mg/dL 0.3 Alkaline Phosphatase 38 - 113 U/L 68 AST 14 - 40 U/L 16 ALT 10 - 54 U/L 22 Glucose 74 - 99 mg/dL 110 (H) BUN 9 - 24 mg/dL 18 Creatinine 0.73 - 1.22 mg/dL 0.79 Sodium 136 - 144 mmol/L 139 Potassium 3.7 - 5.1 mmol/L 4.9 Chloride 97 - 105 mmol/L 104 CO2 22 - 30 mmol/L 22 Anion Gap 9 - 18 mmol/L 13 eGFR >=60 mL/min/1.73m 93 Color Yellow Colorless Clarity Clear Clear Glucose, Urine Trace, Negative Negative Bilirubin, Urine Negative Negative Ketones, Urine Trace, Negative Negative Specific [place], Ur 1.005 - 1.030 1.009 Hemoglobin/Blood,Ur Negative, Trace Negative pH, Urine 5.0 - 8.0 6.5 Protein, Urine Trace, Negative Negative Urobilinogen Negative Negative Nitrites Negative Negative Leukest Negative, 25 Edenilson/uL Negative WBC, Urine 0-5 /HPF 0-5 /HPF RBC, Urine 0-3 /HPF 0-3 /HPF C3 86 - 166 mg/dL 149 C4 13 - 46 mg/dL 25 CRP <0.9 mg/dL 0.4 DNA Antibody w/Confirmation <30 IU/mL 51.81 (H) Legend: (H) High (L) Low IMPRESSION / PROBLEM LIST: 1. Probable systemic lupus erythematosus (+) PRANAY, SENIOR SUPPLIER QUALITY ENGINEER, dsDNA, chromatin Indeterminate LAC Has fatigue, polyarthralgias and what sounds like small fiber neuropathy No clear dermatologic, hematologic, INSPECTION AND TESTING SUPERVISOR or renal disease On hydroxychloroquine 01/23: Trial of prednisone without benefits 2. Likely small fiber neuropathy Based on symptoms Could be due to SLE or gammopathy Has seen Neurology in the past and then recent again 02/21 On Lyrica 3. Osteoarthritis 4. Gammopathy Following with Hematology here 5. Overweight 6. HTN 7. Hyperlipidemia 8. Anxiety / Depression 9. Ophtho up to date 10. Echocardiogram done 12/22 with RVSP est at 38 mmHg 10/25: Echo. RVSP 33 11. Oral mass 12. Indeterminate LAC 12. Cough Pulmonary consult 13. Amyloid found on carpal tunnel surgery path 14. Last echocardiogram 03/26 RECOMMENDATIONS / PLAN: Laboratory: As outlined in orders. Consultations: Ophtho yearly FU Hematology team FU Pulmonary I have messaged them Physical / Occupational therapy: Continue home exercise program: light weights, range of motion and stretching. Medications: No medications were altered by me today. Would recommend to continue the hydroxychlorquine Vaccinations: Keep up to date Other: Patient aware that I will call if testing is out of the range of what is expected. Patient should update all of his age appropriate malignancy screens. Follow-up: 6 mos Electronically signed by: Pat Seo MD CC: Edinson Zarate [address] [place] [address] [place] [address] documented in this encounter [facility] 04-03-2024 History of Present illness Narrative Zayda De La Vega was reviewed for potential clinical trial enrollment on [facility] #[id number] by the Multiple Myeloma group on 04/03/24. Per initial review, patient has disease type smoldering and appears to be not eligible based on not meeting inclusion criteria . Requesting green party notified. No Study tasks were completed as a result of this initial review. Chula Payne RN documented in this encounter [facility] 03-22-2024 History of Present illness Narrative RADIOLOGY SERVICE PROGRESS NOTE SERVICE DATE: 03/22/2024 SERVICE TIME: 11:15 AM PATIENT IDENTITY VERIFICATION COMPLETED USING TWO (2) STANDARD IDENTIFIERS: Name and Date of confirmed by patient verbally and Name and Date of confirmed by identification band FALL SCREENING: Has the patient had 2 falls in the last year or 1 fall with injury or currently using an Ambulatory Assistive Device (Walker, Cane, Wheelchair, Crutches, etc.)? No PATIENT GENDER DATA: .male ALLERGIES: Reviewed and unchanged MEDICATIONS REVIEWED: Yes PATIENT RELEVANT IMPLANT DATA REVIEWED: Not Applicable PATIENT PRESENTS WITH AN IMPLANTABLE OR ATTACHED NETWORK TECHNICAL ANALYST: No CREATININE: Creatinine Date Value Ref Range Status 02/13/2024 0.79 0.73 - 1.22 mg/dL Final 02/06/2024 0.73 0.73 - 1.22 mg/dL Final 02/08/2023 0.84 0.73 - 1.22 mg/dL Final Estimated Glomerular Filtration Rate Date Value Ref Range Status 02/13/2024 93 >=60 mL/min/1.73m Final Comment: Estimated Glomerular Filtration Rate (eGFR) is calculated using the 2020 CKD-EPI creatinine equation. This equation utilizes serum creatinine, sex, and age as parameters. The creatinine assay has traceable calibration to isotope dilution-mass spectrometry. Refer to KDIGO guidelines for clinical interpretation. In patients with unstable renal function, e.g. those with acute kidney injury, the eGFR may not accurately reflect actual GFR. eGFR- Date Value Ref Range Status 07/15/2021 >60 Final P.O.C.T. RESULTS: N/A March 22, [address] PERFORMED: No IV SITE: Ambulatory: A peripheral IV was started in the Right antecubital site with a Angio cath: 22 gauge. POST EXAM PIV STATUS: Discontinued PROCEDURE TYPE: NM INJECT: NM Cardiac Amyloid SPECT/CT. 23.3 mCi Tc99m HDP. No other medications given.. ADMINISTRATION TIME: 1100 PATIENT DISCHARGED TO: Ambulatory patient, left PA department area. A Diagnostic radioactive procedure has taken place, with no further precautions necessary other than routine body substance precautions. More information regarding radiation safety can be found using this link: [email or web address] 20-%20Diagnostic%20Nuclear%20Medicine% 20Procedures.[email or web address] SIGNATURE: MILTON Kumari) PATIENT NAME: Zayda De La Vega DATE: March 22, 2024 TIME: 11:15 AM PAGER/CONTACT #: documented in this encounter [facility] 03-14-2024 History of Present illness Narrative RADIOLOGY SERVICE PROGRESS NOTE SERVICE DATE: 03/14/2024 SERVICE TIME: 9:12 AM PATIENT IDENTITY VERIFICATION COMPLETED USING TWO (2) STANDARD IDENTIFIERS: Name and Date of confirmed by patient verbally and Name and Date of confirmed by identification band FALL SCREENING: Has the patient had 2 falls in the last year or 1 fall with injury or currently using an Ambulatory Assistive Device (Walker, Cane, Wheelchair, Crutches, etc.)? No PATIENT GENDER DATA: .male ALLERGIES: Reviewed and unchanged MEDICATIONS REVIEWED: Yes PATIENT RELEVANT IMPLANT DATA REVIEWED: Not Applicable PATIENT PRESENTS WITH AN IMPLANTABLE OR ATTACHED NETWORK TECHNICAL ANALYST: No CREATININE: Creatinine Date Value Ref Range Status 02/13/2024 0.79 0.73 - 1.22 mg/dL Final 02/06/2024 0.73 0.73 - 1.22 mg/dL Final 02/08/2023 0.84 0.73 - 1.22 mg/dL Final Estimated Glomerular Filtration Rate Date Value Ref Range Status 02/13/2024 93 >=60 mL/min/1.73m Final Comment: Estimated Glomerular Filtration Rate (eGFR) is calculated using the 2020 CKD-EPI creatinine equation. This equation utilizes serum creatinine, sex, and age as parameters. The creatinine assay has traceable calibration to isotope dilution-mass spectrometry. Refer to KDIGO guidelines for clinical interpretation. In patients with unstable renal function, e.g. those with acute kidney injury, the eGFR may not accurately reflect actual GFR. eGFR- Date Value Ref Range Status 07/15/2021 >60 Final P.O.C.T. RESULTS: N/A March 14, [address] PERFORMED: No IV SITE: Ambulatory: A peripheral IV was started in the Right antecubital site with a Angio cath: 22 gauge. POST EXAM PIV STATUS: Discontinued PROCEDURE TYPE: NM INJECT: PET/CT WHOLE BODY SCAN. 16.4 mCi F18 FDG. No other medications given.. ADMINISTRATION TIME: 906 PATIENT DISCHARGED TO: Ambulatory patient, left [place] department area. A Diagnostic radioactive procedure has taken place, with no further precautions necessary other than routine body substance precautions. More information regarding radiation safety can be found using this link: [email or web address]% 20-%20Diagnostic%20Nuclear%20Medicine% 20Procedures.pdf SIGNATURE: MILTON Anand) PATIENT NAME: Zayda De La Vega DATE: March 14, 2024 TIME: 9:12 AM PAGER/CONTACT #: documented in this encounter [facility] 03-12-2024 History of Present illness Narrative Yoni Peng MD Department of Orthopaedics Orthopaedics [address] [facility] [address] Dept: [phone] Dept March 12, 2024 CHIEF COMPLAINT: Post Op of the Left Wrist and 6 weeks 5 days post op Left CTR revision with nerve wrap. HPI Patient here for post op visit left CTR revision with nerve wrap. Patient states he feels his hand is not any better. Continuing to have pain, numbness and tingling. Taking Alexander for his other pains and helps minimal. ASSESSMENT: G56.03 Bilateral carpal tunnel syndrome (primary encounter diagnosis) SUMMARY/PLAN: Not many improvements so far, though doing well. We'll follow with his cardiac work up. Activities as tolerated with the hand. Will take time to see final results. Supporting Information Below: Medications: Current Outpatient Medications Medication Sig tamsulosin (FLOMAX) 0.4 mg Take 1 capsule by mouth daily at bedtime. CPAP/BIPAP/OTHER Replacement autobipap 18/9 with PS of 5cmH2O DME [employer] pregabalin (LYRICA) 225 mg capsule Take 1 capsule by mouth two times a day for 90 days. meloxicam (MOBIC) 15 mg tablet Take 1 tablet by mouth once daily. hydrOXYchloroQUINE (PLAQUENIL) 200 mg tablet Take 1 tablet by mouth two times a day. azelastine 0.1% nasal spray Use 1 [place] in each nostril two times a day. fluticasone (FLONASE) 50 mcg/actuation nasal spray USE 2 SPRAYS IN EACH NOSTRIL ONCE DAILY amLODIPine (NORVASC) 5 mg tablet Take 1 tablet by mouth once daily. metoprolol succinate ER (TOPROL XL) 25 mg 24 hr tablet Take 2 tablets by mouth once daily. guaiFENesin (MUCINEX) 600 mg 12 hr tablet Take 1,200 mg by mouth twice daily as needed for cold/allergy symptoms. fish oil/borage/flax/om3,6,9 1 (OMEGA 3-6-9 ORAL) Take by mouth. fexofenadine (ANÍBAL) 180 mg tablet TAKE 1 TABLET DAILY alpha lipoic acid (LIPOIC ACID ORAL) Take by mouth. ZINC ORAL Take by mouth. LYSINE ORAL Take by mouth. CPAP Continue BiPAP with new settings: @ 14/8 cm of water with humidification. No new equipment is needed. aspirin, enteric coated (ASPIRIN, ENTERIC COATED) 81 mg EC tablet Take 81 mg by mouth once daily. IRON, FERROUS SULFATE, ORAL Take by mouth once daily. ASCORBIC ACID (VITAMIN C ORAL) Take by mouth once daily. buPROPion (WELLBUTRIN) 75 mg tablet Take 150 mg by mouth twice daily. No current facility-administered medications for this visit. Allergies: Aspartame, Betadine [Povidone-Iodine], Cymbalta [Duloxetine], Lisinopril, Losartan, Niacin, Penicillins, Seasonal Allergies, Sudafed [Pseudoephedrine Hcl], Tamiflu [Oseltamivir Phosphate], Trazodone, and Ultram [Tramadol] Yoni Peng MD documented in this encounter [facility] 03-12-2024 Telephone encounter Note CD READY FOR PRODUCTION TECHNICIAN AT [facility] FOR PT [facility] 03-12-2024 Miscellaneous Notes CD READY FOR PRODUCTION TECHNICIAN AT [facility] RADIOLOGY LM FOR PT Patient is asking if CT from can be copied to a disk for pick and shovel man. Patient is asking if they could possible pick this up this afternoon as patient has appointment With ortho at 3:15 PM. documented in this encounter [facility] 03-12-2024 Telephone encounter Note Patient is asking if CT from can be copied to a disk for pick and shovel man. Patient is asking if they could possible pick this up this afternoon as patient has appointment With ortho at 3:15 PM. [facility] 03-07-2024 History of Present illness Narrative Date of Tumor Board this case is being submitted for: March 07, 2024 Presenting Facility: [facility] Staff Name (first and last) Philippe Dawson APRN.EDOUARD Patient Information Zayda De La Vega 73 year old IgG lambda MGUS Diagnosis comments: Left carpal tunnel bx (+) transthyretin, BMBx + (11;14) w few lymphoid aggregates are composed of more CD20 positive B cells and less CD3 positive T cells Cardiac MRI ordered by Dr Chong Cancer Staging No matching staging information was found for the patient. Type of Review: Initial Review Relapsed or Refractory Disease: NA Outcome: Zayda De La Vega case was reviewed by the multidisciplinary providers in attendance. Based on the current evidence of practice, the collaborative recommendation would be to have cardiology continue work-up for ATTR amyloidosis. These recommendations will be communicated by the presenting physicians. Conclusions: Continue close observation of IgG lambda MGUS. Case reviewed by Plasma Cell Disorder's Tumor Board. documented in this encounter [facility] 03-06-2024 Telephone encounter Note Authorization number: ORM / GPS to process Primary Insurance: Aet Medicare Diagnosis: Abnormality of plasma protein [R77.9] DX Imaging: N/A Pathology: 02-28-24 This addendum is issued to report a missing immunostain and correct a typographical error in the diagnostic comment. Few lymphoid aggregates are composed of more CD20 positive B cells and less CD3 positive T cells. Initial/Subsequent: Initial Treatment Strategy: 0061 PET Protocol: Top Of Head To Toes Diagnostic Imaging Requested: No Is this a Pretreatment and/or an initial Pet scan: Yes - Please schedule as requested. Comments for Lime Vat Tender: N/A ROUTE TO SCHEDULERS POOL P PET BED BUG EXTERMINATOR or P NM SPECIAL STUDIES [facility] 03-06-2024 Miscellaneous Notes Authorization number: ORM / GPS to process Primary Insurance: Aet Medicare Diagnosis: Abnormality of plasma protein [R77.9] DX Imaging: N/A Pathology: 02-28-24 This addendum is issued to report a missing immunostain and correct a typographical error in the diagnostic comment. Few lymphoid aggregates are composed of more CD20 positive B cells and less CD3 positive T cells. Initial/Subsequent: Initial Treatment Strategy: 0061 PET Protocol: Top Of Head To Toes Diagnostic Imaging Requested: No Is this a Pretreatment and/or an initial Pet scan: Yes - Please schedule as requested. Comments for [place]ime Vat Tender: N/A ROUTE TO SCHEDULERS POOL P PET BED BUG EXTERMINATOR or P NM SPECIAL STUDIES This form is used for MAIN CAMPUS APPOINTMENTS ONLY. Is this request for a Main [place] PET scan appointment? Yes: Communications Specialist: Philippe Dawson APRN.DISTRICT RESOURCE OFFICER Requesting Person (Last Name, First Name): Philippe Dawson Area Code + Phone/Pager: [phone] Who do we call to schedule this appointment? Patient Requesting Staff Area Code + Phone/Pager: PET Orders (A delay in scheduling will result if the orders are not present at time of review): Internal ADDITIONAL ACTION MAY BE REQUIRED IF PATIENTS OON INSURANCE OR SELF PAY COVERAGE HAS NOT BEEN CLEARED FOR REQUESTED APPOINTMENT. Scheduling: CARIE: As soon as insurance will allow What account will this PET appointment be linked to? P/F Type of PET: Oncology: Are there additional diagnostic CT scans required to be done at time of PET scan? No Is the request for a PET MR ? No What account will diagnostic testing appointment be linked to? P/F Will the patient need anesthesia? NO Send requests to P COORD REVIEW [facility] documented in this encounter [facility] 03-06-2024 History of Present illness Narrative Radiology Service Progress Note DATE OF SERVICE: March 06, 2024 TIME: 12:23 PM PATIENT IDENTITY VERIFICATION COMPLETED USING TWO (2) STANDARD IDENTIFIERS: Name and Date of confirmed by patient verbally. FALL SCREENING: Has the patient had 2 falls in the last year or 1 fall with injury or currently using an Ambulatory Assistive Device (Walker, Cane, Wheelchair, Crutches, etc.)? No PATIENT GENDER DATA: Male PATIENT RELEVANT IMPLANT DATA REVIEWED: Yes PATIENT PRESENTS WITH AN IMPLANTABLE OR ATTACHED NETWORK TECHNICAL ANALYST: No ALLERGIES: Reviewed and unchanged CONTRAST ALLERGY: NO. EXAM: CT -CONTRAST INDUCED NEPHROPATHY RISK FACTORS: Patient age > 60 years CREATININE: Creatinine Date Value Ref Range Status 02/13/2024 0.79 0.73 - 1.22 mg/dL Final 02/06/2024 0.73 0.73 - 1.22 mg/dL Final 02/08/2023 0.84 0.73 - 1.22 mg/dL Final Estimated Glomerular Filtration Rate Date Value Ref Range Status 02/13/2024 93 >=60 mL/min/1.73m Final Comment: Estimated Glomerular Filtration Rate (eGFR) is calculated using the 2020 CKD-EPI creatinine equation. This equation utilizes serum creatinine, sex, and age as parameters. The creatinine assay has traceable calibration to isotope dilution-mass spectrometry. Refer to KDIGO guidelines for clinical interpretation. In patients with unstable renal function, e.g. those with acute kidney injury, the eGFR may not accurately reflect actual GFR. eGFR- Date Value Ref Range Status 07/15/2021 >60 Final P.O.C.T. RESULTS: POC done: Yes, See Lab Tab March 06, 2024 TREATMENT: N/A PERIPHERAL IV DATA: Ambulatory: A peripheral IV was started in the Left antecubital site with a Angio cath: 22 gauge. RADIOLOGY DEPARTMENT: CT; Exam(s) Completed: Neck SIGNATURE: RT Lizandro(R) PATIENT NAME: Zayda De La Vega DATE: March 06, 2024 TIME: 12:23 PM documented in this encounter [facility] 03-06-2024 Telephone encounter Note This form is used for MAIN CAMPUS APPOINTMENTS ONLY. Is this request for a Main [place] PET scan appointment? Yes: Communications Specialist: Philippe Dawson APRN.CNP Requesting Person (Last Name, First Name): Philippe Dawson Area Code + Phone/Pager: [phone] Who do we call to schedule this appointment? Patient Requesting Staff Area Code + Phone/Pager: PET Orders (A delay in scheduling will result if the orders are not present at time of review): Internal ADDITIONAL ACTION MAY BE REQUIRED IF PATIENTS OON INSURANCE OR SELF PAY COVERAGE HAS NOT BEEN CLEARED FOR REQUESTED APPOINTMENT. Scheduling: CARIE: As soon as insurance will allow What account will this PET appointment be linked to? P/F Type of PET: Oncology: Are there additional diagnostic CT scans required to be done at time of PET scan? No Is the request for a PET MR ? No What account will diagnostic testing appointment be linked to? P/F Will the patient need anesthesia? NO Send requests to P COORD REVIEW [facility] Work Phone: 03-06-2024 History of Present illness Narrative PET CT And referral to [facility] documented in this encounter [facility] 03-06-2024 Telephone encounter Note Faxed order, office notes, demographics, and sleep study to: DME name: AMPARO MICHAEL fax: [phone] DME ph: [facility] 03-06-2024 Miscellaneous Notes Faxed order, office notes, demographics, and sleep study to: DME name: AMPARO MICHAEL fax: [phone] DME ph: documented in this encounter [facility] 03-05-2024 History of Present illness Narrative Images from the original note were not included. [facility] Follow up/ Established patient visit Date of last visit : 02/17/2024 I have communicated my name and active licensure. The patient's identity and physical location were verified at the time of this visit. 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 In [place] Per last visit: Assessment & Plan Diagnosis: Obstructive sleep apnea on cpap (primary encounter diagnosis) Essential hypertension, benign Amyloidosis, unspecified type (hcc) Grade i diastolic dysfunction Overview: Zayda De La Vega is a 73 year old year old male with a PMH as noted who presents via Virtual Visit for MARCELINA. (Continue Bilevel PAP at 15/11 cmH2O. Consider getting a new PAP device in the future. Given sample mask Pily Full Large to take home today. Will send Dasjessica new script for new supplies.) Reports he got COVID twice in 9 months. It wiped me out and had to cancel sleep study testing. .Would like to set up testing again.. Reports he recently also had a wrist biopsy done, reveling Amyloidosis. Also Monoclonal paraproteinemia. Suppose to be having a bone marrow biopsy on 02/22/24. Reports, I wake up with some headaches. I don't really feel rested. Prior studies done 20 years. No records available. Doesn't recall reason for being placed on BIPAP. May have been due to hypoventilation. I found some documentation from a prior note. Lupus doctors not happy with respirations. They wanted him fitted with an up to date mask. ResMed device 7 years old. Without PAP device, I wake up quite a lot. Reports he switches back and forth between nasal and full face mask depending on sinus congestion. - Doing fairly well with BI PAP therapy. - ResMed, AirCurve 10, IPAP 15.0, EPAP 11.0 (old machine ~ 9 years old) - Denies mask or pressure intolerance. - Compliant and benefiting from treatment. - However, is hearing him snore, waking up with headaches, and not waking up feeling as rested in the morning. - Face to face examination completed February 17, 2024 - Zayda De La Vega has fulfilled his insurance requirement with an annual visit for PAP therapy, average usage is 6-8 hours, and compliancy of >70 %. Plan: MARCELINA: (1) Continue BIPAP at current settings of 15/11 cmH20. Machine needs to be replaced, but will need a new sleep study to qualify for devcie and supplies. Last study done at [facility] . Records not available. Replacement PAP Device Documentation: Face to face evaluation done February 17, 2024 Patient is using and benefiting from PAP therapy. Patient using their PAP unit. Patient desires to continue using PAP therapy. Will be getting a new sleep study. Last one done at [facility] . No records available. PAP unit needs to be replaced (current machine is working, but is old) Machine is not malfunctioning , but the age of the machine is ~ 9 years old. Machine is obsolete and should be replaced. Insurance: Face to face examination completed 02/17/24. Patient has fulfilled the insurance requirement with an annual visit for PAP therapy. Patient has met standard compliance measures. Please send patient PAP supplies as covered by insurance. DO NOT SEND SCRIPT TO [facility]. I WANT TO GET NEW SLEEP STUDY FIRST IF ABLE. THEN GET HIM A NEW MACHINE AND SUPPLIES. (2) I have ordered POLYSOMNOGRAPHY (PSG) SPLIT STUDY AHI > 15 apneas and/or hypopneas to evaluate for obstructive sleep apnea. Start CPAP at 5 cmH20 then titrate per protocol. Low threshold for switching to BIPAP for intolerance or hypoventilation. Currently using Bilevel PAP at 15/11 cmH2O. . Please fit patient with a mask and send mask home with patient. You will need to be scheduled a night in the sleep lab. Special instructions: Please encourage supine sleep and record sleep in the patient's habitual sleep position. Target REM/supine sleep Please add EtCO2 or Transcutaneous CO2 monitoring to evaluate for MARCELINA, sleep related hypoventilation, hypoxemia. Add BiPAP for intolerance or hypoventilation Sleep Aid: You may take a light over the counter medication like Melatonin or Benadryl unless you take a prescription sleep aid regularly. - What is a Split Night Polysomnography (PSG) with PAP Titration? This is a type of sleep study in which two night's worth of recordings are combined into a single overnight observation. Split-night sleep studies involve diagnostic polysomnography during the first portion of the night (sleep apnea discovered) followed by CPAP titration (test the settings of the PAP therapy) for the remainder of the night. This approach has been used to diagnose sleep apnea and titrate CPAP during a single night and can reduce costs. - Call [phone] to schedule your sleep study if it is not scheduled after your visit today with one of our schedulers. - The morning after your sleep study is completed, please contact our office to schedule a follow up visit (in clinic or virtual) in 2-3 weeks with Sleep MAURICE's or with Results Clinic who will be explain the results in detail and treatments options. Results are usually available within 10-14 business days. - Avoid driving when drowsy. Recommend that if you are dozing off while driving, that you do not drive until your sleepiness is appropriately treated. -Encouraged healthy lifestyle with adequate sleep ( 7-9 hours per night), diet and exercise. Follow up as discussed. I spent a total of 36 minutes. This was a follow up patient to me on the date of the service which included preparing to see the patient, [id number] patient care, completing clinical documentation, counseling and educating the patient/family/caregiver and ordering medications, tests, or procedures. Katelyn Hamilton APRN.DISTRICT RESOURCE OFFICER Activity Duration Pre-charting 2 minutes Pre-charting 5 minutes Pre-charting 6 minutes Current session 36 minutes Total time: 51 minutes Interval history : Device is old and outdated, device is turning off and cord is falling out. Here for follow up for PSG results? PSG completed 02/20/2024 showed overall index of 12.7, supine index of 2.7, REM index of n/a and was associated with a minimum O2 saturation of 86%. Uses FFM and nasal pillows Does well with bipap therapy PATIENT-ENTERED QUESTIONNAIRE SLEEP SCORES 03/02/2024 Sleep Questions Reason for visit: Sleep apnea 02/11/2024 [place] Sleepiness Scale Score 4 (No clinically significant daytime sleepiness) 03/10/2021 05/25/2021 02/11/2024 PROMIS CAT Sleep Disturbance PROMIS Sleep Disturbance T-Score 63 (moderate) 58 (mild) 58 (mild) PROMIS Sleep Disturbance Percentile 10 21 21 02/22/2022 02/11/2024 Insomnia Severity Index Score 14 14 02/22/2022 02/11/2024 02/21/2024 PHQ-9 Score 9 5 9 08/01/2023 11/22/2023 02/11/2024 PROMIS Global Health - (T-Scores - the mean of general population = 50. Five points is a clinically meaningful difference.) Physical T-Score 34.9 34.9 34.9 Mental T-Score 45.8 41.1 41.1 PMH, PSH, SH: reviewed SLEEP RELATED ROS Review of Systems HENT: Positive for hearing loss. Respiratory: Negative for difficulty breathing. Skin: Negative for rash. ALLERGIES Allergen Reactions Aspartame Swelling Pt gets burning sensation under skin Betadine [Povidone-* Rash Blister Cymbalta [Duloxetin* Other: See Comments Sweating Lisinopril Cough Cough Losartan Cough Niacin Other: See Comments Niacin-Dermid Burning pain all over Penicillins Rash Seasonal Allergies Other: See Comments GRASS POLLEN-positive skin test 09-05-13 Sudafed [Pseudoephe* Other: See Comments Difficulty swallowing, swelling of tongue & lips Tamiflu [Oseltamivi* Shortness of Breath SOB, arm pain Trazodone Shortness of Breath Ultram [Tramadol] Per patient contraindication due to wellbutrin CURRENT MEDICATIONS: tamsulosin (FLOMAX) 0.4 mg Take 1 capsule by mouth daily at bedtime. pregabalin (LYRICA) 225 mg capsule Take 1 capsule by mouth two times a day for 90 days. meloxicam (MOBIC) 15 mg tablet Take 1 tablet by mouth once daily. hydrOXYchloroQUINE (PLAQUENIL) 200 mg tablet Take 1 tablet by mouth two times a day. azelastine 0.1% nasal spray Use 1 [place] in each nostril two times a day. fluticasone (FLONASE) 50 mcg/actuation nasal spray USE 2 SPRAYS IN EACH NOSTRIL ONCE DAILY amLODIPine (NORVASC) 5 mg tablet Take 1 tablet by mouth once daily. metoprolol succinate ER (TOPROL XL) 25 mg 24 hr tablet Take 2 tablets by mouth once daily. guaiFENesin (MUCINEX) 600 mg 12 hr tablet Take 1,200 mg by mouth twice daily as needed for cold/allergy symptoms. fish oil/borage/flax/om3,6,9 1 (OMEGA 3-6-9 ORAL) Take by mouth. fexofenadine (ANÍBAL) 180 mg tablet TAKE 1 TABLET DAILY alpha lipoic acid (LIPOIC ACID ORAL) Take by mouth. ZINC ORAL Take by mouth. LYSINE ORAL Take by mouth. CPAP Continue BiPAP with new settings: @ 14/8 cm of water with humidification. No new equipment is needed. aspirin, enteric coated (ASPIRIN, ENTERIC COATED) 81 mg EC tablet Take 81 mg by mouth once daily. IRON, FERROUS SULFATE, ORAL Take by mouth once daily. ASCORBIC ACID (VITAMIN C ORAL) Take by mouth once daily. buPROPion (WELLBUTRIN) 75 mg tablet Take 150 mg by mouth twice daily. PHYSICAL EXAMINATION: Vital Signs: Deferred due to virtual visit via Zoom. General appearance: NAD Mental status: awake and alert Constitutional: Well groomed Skin: Dry and intact Neuro: Speech fluent IMPRESSION: Marcelina (obstructive sleep apnea) (primary encounter diagnosis) Obesity, class iii, bmi 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) ([facility]) Zayda De La Vega is a 73 year old male with a PMH of HTN, HLD, BPH, GERD, lupus, arthritis, depression, anxiety, prediabetes and class III obesity who presents via zoom for MARCELINA follow up. A Polysomnogram performed on 02/20/2024 revealed mild MARCELINA (AHI of 12.7) that was exacerbated to severe in off supine sleep (AHI 34.3) and was associated with a minimum O2 saturation of 86%. Poor sleep efficiency overnight at 13%. -Mr. De La Vega's device is old, outdated and power cord keeps falling out and shutting the device off. Will order replacement autopap at this time. -Reviewed pap therapy. Discussed insurance requirements including meeting compliance and follow up. Reviewed mask options. Recommended they start with a nasal mask. Reviewed DME options. Information left in AVS. -He does well with using both FFM and nasal pillow mask. Order to go to [facility] PLAN: - Will start Auto Bilevel PAP 20/06 with PS of 5cmH2O with a mask per patient preference . - I will have a prescription sent to a DME ([employer]) company - [facility] who will be calling you in the next 1-2 weeks or so. Please call them directly or us if you do not hear from them in this time frame. - You should be eligible for new supplies approximately every 3-6 months, depending on your insurance coverage. - If your mask doesn't fit well, call the DME company before 30 days are up to get a new mask without an additional charge. - Insurance requires regular usage and periodic office follow ups for PAP therapy, to continue to cover supplies. - Follow up in 3 months, appt made today Shavon Dawkins APRN.EDOUARD documented in this encounter [facility] 03-05-2024 Telephone encounter Note Pharmacy verified in [email or web address]. Patient has been identified by name and date of : Yes Patient aware RX will be sent to pharmacy. No need to notify patient. Patient phones for refill(s): Requested Prescriptions Pending Prescriptions Disp Refills tamsulosin (FLOMAX) 0.4 mg 90 capsule 1 Sig: Take 1 capsule by mouth daily at bedtime. Date of last office visit : 02/13/2024 Date of next office visit : Visit date not found Last 2 Encounter Wt Readings: Date: Wt: 02/24/2024 127 kg (280 lb) 02/13/2024 128.5 kg (283 lb 4.7 oz) Not applicable Please advise. Lynsey Townsend MA [facility] 03-05-2024 Miscellaneous Notes Pharmacy verified in [email or web address]. Patient has been identified by name and date of : Yes Patient aware RX will be sent to pharmacy. No need to notify patient. Patient phones for refill(s): Requested Prescriptions Pending Prescriptions Disp Refills tamsulosin (FLOMAX) 0.4 mg 90 capsule 1 Sig: Take 1 capsule by mouth daily at bedtime. Date of last office visit : 02/13/2024 Date of next office visit : Visit date not found Last 2 Encounter Wt Readings: Date: Wt: 02/24/2024 127 kg (280 lb) 02/13/2024 128.5 kg (283 lb 4.7 oz) Not applicable Please advise. Lynsey Townsend MA documented in this encounter [facility] 03-02-2024 Telephone encounter Note The EKG is abut the same as EKG in 2017. The blocks referred to in the report are electrical delays of conduction of the electrical signal from top of the heart to the bottom of the heart. So the right side of the heart is not getting the signal from above. It beats along with the left side of the heart. The left hemiblock means 1/2 of the electrical signal is not getting through. This may progress to complete heart (electrical ) block, which could require a pacemaker. The EKG again is unchanged from several years ago You can see the government service executive if you want or wait. Edinson Zarate MD [facility] 03-02-2024 Miscellaneous Notes The EKG is abut the same as EKG in 2017. The blocks referred to in the report are electrical delays of conduction of the electrical signal from top of the heart to the bottom of the heart. So the right side of the heart is not getting the signal from above. It beats along with the left side of the heart. The left hemiblock means 1/2 of the electrical signal is not getting through. This may progress to complete heart (electrical ) block, which could require a pacemaker. The EKG again is unchanged from several years ago You can see the government service executive if you want or wait. Edinson Zarate MD documented in this encounter [facility] 03-01-2024 Telephone encounter Note CD READY FOR PRODUCTION TECHNICIAN AT [facility] Pt is aware [facility] 03-01-2024 Miscellaneous Notes CD READY FOR PRODUCTION TECHNICIAN AT [facility] Pt is aware Pt would like to get a CD and copy of report of the XR of Clavicle from 02/21/24 done at [place]. Pt has an appt today and wonders if able to pick and shovel man at 3:30? Please call if this is not possible to get done today. documented in this encounter [facility] 03-01-2024 Telephone encounter Note Pt would like to get a CD and copy of report of the XR of Clavicle from 02/21/24 done at [place]. Pt has an appt today and wonders if able to pick and shovel man at 3:30? Please call if this is not possible to get done today. [facility] Work Phone: 02-29-2024 Telephone encounter Note Patient's spouse called in due to missed call. FOLLOW-UP BONE MARROW BIOPSY CALL BACK Phone call made to Zayda De La Vega for follow-up Bone Marrow Biopsy procedure on 02/28/24. 1. Are you having any of the following? None 2. Has there been any bleeding from the site? NO 3. Describe the appearance of the biopsy site: Normal 4. Do you have any questions or concerns? None Nidhi Huynh LPN [facility] 02-29-2024 Miscellaneous Notes Patient's spouse called in due to missed call. FOLLOW-UP BONE MARROW BIOPSY CALL BACK Phone call made to Zayda De La Vega for follow-up Bone Marrow Biopsy procedure on 02/28/24. 1. Are you having any of the following? None 2. Has there been any bleeding from the site? NO 3. Describe the appearance of the biopsy site: Normal 4. Do you have any questions or concerns? None Nidhi Huynh LPN documented in this encounter [facility] 02-29-2024 Telephone encounter Note FOLLOW-UP BONE MARROW BIOPSY CALL BACK Phone call made to Zayda De La Vega for follow-up Bone Marrow Biopsy procedure on 02/28/24. No answer Nidhi Huynh LPN [facility] 02-29-2024 Miscellaneous Notes FOLLOW-UP BONE MARROW BIOPSY CALL BACK Phone call made to Zayda De La Vega for follow-up Bone Marrow Biopsy procedure on 02/28/24. No answer Nidhi Huynh LPN documented in this encounter [facility] 02-28-2024 Nurse Note BONE MARROW Aspirate & Biopsy Recovery Nursing Assessment/Intervention Post-procedure: Safety Maintained. Call light within reach. Will continue to monitor patient status. Family present. Discharge: Time: 0945 BP: 153/73 P: 58 Time: 1005 BP: 143/77 P: 57 Dressing: Dry and intact Signs & Symptoms\ pt denies: abd/groin pain, chest pain, short of breath, faintness, and dizziness Mental status: WNL skin color/quality: WNL Pt was discharged in apparent satisfactory condition. Comments: None, patient tolerated procedure well. electronically signed: Nidhi Huynh LPN [facility] 02-28-2024 Nurse Note BONE MARROW Aspirate & Biopsy Recovery Nursing Assessment/Intervention Post-procedure: Safety Maintained. Call light within reach. Will continue to monitor patient status. Family present. Discharge: Time: 0945 BP: 153/73 P: 58 Time: 1005 BP: 143/77 P: 57 Dressing: Dry and intact Signs & Symptoms\ pt denies: abd/groin pain, chest pain, short of breath, faintness, and dizziness Mental status: WNL skin color/quality: WNL Pt was discharged in apparent satisfactory condition. Comments: None, patient tolerated procedure well. electronically signed: Nidhi Huynh LPN Additional intake questions: Has the patient had fever, nausea, vomiting, diarrhea, constipation, fatigue for > 1 week? Fatigue and muscle fatigue per patient Does the patient have a decreased appetite? No Does patient want to see a Slackline Operator? No (yes to any of above refer patient to schedulers for dietitian appointment) ) Does patient have any new or increased numbness or tingling of extremities? No Is patient interested in fertility information? No Does patient need any prescription refills? No Does patient have an advanced directive in place? Yes, copies are in Epic Electronically Signed By: Nidhi Huynh LPN AMBULATORY PATIENT EDUCATION NOTE TOPIC: Bone marrow biopsy READINESS TO LEARN COGNITIVE ABILITY: Alert and oriented MOTIVATION TO LEARN: Eager FAMILY SUPPORT: High - Very involved in pt care INSTRUCTION PROVIDED TO: Patient and family member PATIENT LEARNS BEST BY: Individual Instruction Written Instruction - Hand-outs Verbal Instruction FACTORS AFFECTING LEARNING: None PHYSICAL LIMITATIONS AFFECTING LEARNING: None LEARNING RESPONSE DIAGNOSIS: Disease assessment METHOD OF INSTRUCTION: Individual instruction Written instruction/Handouts Verbal instruction PATIENT / FAMILY RESPONSE: Verbalizes understanding of: PRE PROCEDURE MEDICATON-Use of designated catering truck driver. INFECTION MANAGEMENT-The signs and symptoms of an infection (chills and fever) and the importance of contacting the physician. PAIN MANAGEMENT-The effective strategies to manage pain, use of Tylenol instead of ASA or Ibuprofen. BIOPSEY SITE-Care of biopsy site, bleeding control and instruction for contacting physician in case of excessive bleeding. FOLLOW-UP PLAN: Patient instructed to call with any further issues SUPPLEMENTAL MATERIAL: Patient Instruction for Home-Care Following a Bone Marrow Biopsy REFERRAL (RECOMMENDATION): None Electronically Signed By Nidhi Huynh LPN In Department: HEMATOLOGY/ONCOLOGY documented in this encounter [facility] 02-28-2024 Procedure note Associated Ord er(s): BONE MARROW BIOPSY Post-Procedure Diagnose(s): Monoclonal paraproteinemia BEDSIDE PROCEDURE NOTE BONE MARROW BIOPSY Date/Start Time: 02/28/2024 9:17 AM Date/Stop Time: 02/28/2024 9:38 AM Performed by: Keri Wagner APRN.DISTRICT RESOURCE OFFICER Authorized by: Keri Wagner APRN.DISTRICT RESOURCE OFFICER Where was Patient When this Procedure was Performed [facility] Informed Consent Consent Obtained: Written [place] Protocol A moment to CARE was completed. SIGN IN Personnel directly involved with the procedure wore the appropriate PPE. Special Equipment: Yes (OnControl) Patient/Surrogate Stated/Verified: Patient name, Date of , Relevant allergies and Intended procedure TIME OUT Intended patient and procedure match the source document(s). Consent documented and matches the intended procedure. Relevant labs, photos, and/or imaging studies have been reviewed. Correct side/site marked and visible. Medications required for procedure verified. No fire risk assessment and interventions applicable. No implant(s) inserted. Pre-Procedure Details: The area was prepped with chlorhexidine (Chloroprep) and allowed to dry. A sterile partial body drape was applied following the usual aseptic technique. Medications: Analgesia Sedation CCHS: Tylenol. Local Anesthesia (see MAR): Lidocaine 2% (9 ml) Anxiolysis (see MAR): Lorazapem Procedure Details: Patient Position: Right lateral decubitus Aspiration Laterality: Unilateral Aspiration Site: Left posterior superior iliac crest Biopsy Laterality: Unilateral Biopsy Site: Left posterior superior iliac crest OnControl biopsy system was used. Using aseptic technique, bone marrow aspiration was performed. A touch prep was taken. Core biopsy was obtained 1.8 cm. The core biopsy was confirmed. Number of External Insertion Sites: 1 Pressure dressing applied to Bone Marrow site(s). Hemostasis maintained. Assisting Clinician(s): Eliana Ross APRN.EDOUARD performed the entire procedure under my direct supervision. Dr. Box observed. Post-Procedure Details: Patient Tolerance: Patient tolerated the procedure well with no immediate complications Estimated Blood Loss: scant Specimens Sent: bone marrow analysis, bone marrow chromosome analysis, DNA extraction and flow cytometry (FISH for plasma cell myeloma) Teaching Complete: Bone Marrow Biopsy Post-procedure teaching complete Post-procedure care was reviewed and explained. Patient instructed to communicate complaints of redness, swelling, increased or unresolved pain, bleeding chills, bruising, and/or fever. Patient verbalized understanding. SIGN OUT All specimen containers correctly labeled. All instruments, equipment, possible retained foreign bodies accounted for. 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 SIGNATURE: Keri Wagner APRN.CNP PATIENT NAME: Zayda De La Vega DATE: February 28, 2024 TIME: 9:42 AM T [facility] Work Phone: 02-28-2024 Procedure note Associated Ord er(s): BONE MARROW BIOPSY Post-Procedure Diagnose(s): Monoclonal paraproteinemia BEDSIDE PROCEDURE NOTE BONE MARROW BIOPSY Date/Start Time: 02/28/2024 9:17 AM Date/Stop Time: 02/28/2024 9:38 AM Performed by: Keri Wagner APRN.EDOUARD Authorized by: Keri Wagner APRN.CNP Where was Patient When this Procedure was Performed [facility] Ambulatory Informed Consent Consent Obtained: Written [place] Protocol A moment to CARE was completed. SIGN IN Personnel directly involved with the procedure wore the appropriate PPE. Special Equipment: Yes (OnControl) Patient/Surrogate Stated/Verified: Patient name, Date of , Relevant allergies and Intended procedure TIME OUT Intended patient and procedure match the source document(s). Consent documented and matches the intended procedure. Relevant labs, photos, and/or imaging studies have been reviewed. Correct side/site marked and visible. Medications required for procedure verified. No fire risk assessment and interventions applicable. No implant(s) inserted. Pre-Procedure Details: The area was prepped with chlorhexidine (Chloroprep) and allowed to dry. A sterile partial body drape was applied following the usual aseptic technique. Medications: Analgesia Sedation CCHS: Tylenol. Local Anesthesia (see MAR): Lidocaine 2% (9 ml) Anxiolysis (see MAR): Lorazapem Procedure Details: Patient Position: Right lateral decubitus Aspiration Laterality: Unilateral Aspiration Site: Left posterior superior iliac crest Biopsy Laterality: Unilateral Biopsy Site: Left posterior superior iliac crest FMS [place] biopsy system was used. Using aseptic technique, bone marrow aspiration was performed. A touch prep was taken. Core biopsy was obtained 1.8 cm. The core biopsy was confirmed. Number of External Insertion Sites: 1 Pressure dressing applied to Bone Marrow site(s). Hemostasis maintained. Assisting Clinician(s): Eliana Ross APRN.EDOUARD performed the entire procedure under my direct supervision. Dr. Box observed. Post-Procedure Details: Patient Tolerance: Patient tolerated the procedure well with no immediate complications Estimated Blood Loss: scant Specimens Sent: bone marrow analysis, bone marrow chromosome analysis, DNA extraction and flow cytometry (FISH for plasma cell myeloma) Teaching Complete: Bone Marrow Biopsy Post-procedure teaching complete Post-procedure care was reviewed and explained. Patient instructed to communicate complaints of redness, swelling, increased or unresolved pain, bleeding chills, bruising, and/or fever. Patient verbalized understanding. SIGN OUT All specimen containers correctly labeled. All instruments, equipment, possible retained foreign bodies accounted for. 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 SIGNATURE: Keri Wagner APRN.CNP PATIENT NAME: Zayda De La Vega DATE: February 28, 2024 TIME: 9:42 AM documented in this encounter [facility] 02-28-2024 Nurse Note Additional intake questions: Has the patient had fever, nausea, vomiting, diarrhea, constipation, fatigue for > 1 week? Fatigue and muscle fatigue per patient Does the patient have a decreased appetite? No Does patient want to see a Slackline Operator? No (yes to any of above refer patient to schedulers for dietitian appointment) ) Does patient have any new or increased numbness or tingling of extremities? No Is patient interested in fertility information? No Does patient need any prescription refills? No Does patient have an advanced directive in place? Yes, copies are in Epic Electronically Signed By: Nidhi Huynh LPN AMBULATORY PATIENT EDUCATION NOTE TOPIC: Bone marrow biopsy READINESS TO LEARN COGNITIVE ABILITY: Alert and oriented MOTIVATION TO LEARN: Eager FAMILY SUPPORT: High - Very involved in pt care INSTRUCTION PROVIDED TO: Patient and family member PATIENT LEARNS BEST BY: Individual Instruction Written Instruction - Hand-outs Verbal Instruction FACTORS AFFECTING LEARNING: None PHYSICAL LIMITATIONS AFFECTING LEARNING: None LEARNING RESPONSE DIAGNOSIS: Disease assessment METHOD OF INSTRUCTION: Individual instruction Written instruction/Handouts Verbal instruction PATIENT / FAMILY RESPONSE: Verbalizes understanding of: PRE PROCEDURE MEDICATON-Use of designated catering truck driver. INFECTION MANAGEMENT-The signs and symptoms of an infection (chills and fever) and the importance of contacting the physician. PAIN MANAGEMENT-The effective strategies to manage pain, use of Tylenol instead of ASA or Ibuprofen. BIOPSEY SITE-Care of biopsy site, bleeding control and instruction for contacting physician in case of excessive bleeding. FOLLOW-UP PLAN: Patient instructed to call with any further issues SUPPLEMENTAL MATERIAL: Patient Instruction for Home-Care Following a Bone Marrow Biopsy REFERRAL (RECOMMENDATION): None Electronically Signed By Nidhi Huynh LPN In Department: HEMATOLOGY/ONCOLOGY [facility] 02-24-2024 History of Present illness Narrative [facility] Neu[facility] [place] February 24, 2024 Zayda De La Vega is a 73 year old male, retired x 16, years who lives with in [place], [place]. Patient presents with for the visit He was referred by Edinson Zarate [address] [place] [address] [place] [id number]. Consultation requested by Dr. Zarate for an opinion regarding Mr. Zayda De La Vega, and my final recommendations will be communicated back to the requesting physician by way of shared medical record or letter via [place] mail. PDMP website checked and validated. All prescriptions have been APPROPRIATELY filled. No suspicious activity was identified. 02/24/2024 by Jerry Gduino PA-C Chief complaint: pain everywhere SUBJECTIVE: Patient presents with complaints of pain everywhere. States that he had skin pain, joint pain, and tendon and muscle pain. Has been evaluated by neurology, orthopedics. States that the pain started about 20 years ago. Reports that it started with skin fire - would take cold showers to relieve the symptoms. Has been diagnosed with SLE and amyloidosis Has diffuse skin pain from his lupus, arthritis in his hands, ankles, and feet, and numbness in his fingers.Has pain in his joints. Reports sensations of electrical pain in his hands, fingers and feet. States that the skin pain feels like a sunburn under his skin. Has muscle pain with spasms and soreness. Notes that his muscles are easily fatigued. Reports that the pain keeps him awake all night. Reports numbness in the hands, ankles and feet - has trouble buttoning things, dropping things. Reports generalized weakness Denies any low back pain or neck pain States that the pain is constant - but intensity varies Pain severity 4-6/10 - will also have flares of pain. 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 Interventions - denies Medications - lyrica, norco, cannabis 1x week, mobic Past medications - advil, gabapentin Hx of spine surgery - 1995 lumbar surgery x2 with rods and screws PMH - HTN, HLD, grade 1 diastolic dysfunction, MARCELINA - CPAP, diverticulosis, GERD, BPH, SLE, OA, MDD, anxiety, prediabetes, mobid obesity, amyloidosis, carpal tunnel syndrome Spine Red Flag Zayda De La Vega has no red flag symptoms. Anesthesia: denies Schizophrenia: denies : n/a CHF: diastolic dysfunction Uncontrolled HTN: controlled Recent VA: denies Arrythmias: denies Afib: denies Hyperthyroid: denies Aortic Stenosis: denies Liver Failure: denies Increased ICP: denies Average pain over the last 7 days: 4-03/12 Previous pain treatments: medications Functional Limitations: The patient's work is unimpaired. Retried in 2007 Time spent reclining is 50 percent of hours/day (includes time in bed, recliner, sofa, ottoman, etc.). Wellness: How would you describe your diet: fair - eating 4x day. Drinking water, coffee, juice, diet soda How many days a week do you exercise: denies How many hours do you sleep a night: see HPI Emotional Symptoms: include sadness, depression, anxiety, frustration, irritability, and anger The patient has loss of interest, energy, libido, appetite, and sleep The patient denies suicidal ideation. Non-medical stresses: Include medical problems Family involvement: is appropriate/helpful and supportive Financial Status: retried Allergies: Reviewed in the EMR Current Medications: Reviewed in the EMR PAST MEDICAL HISTORY Diagnosis Date Anxiety Dr. Belle Arthritis of both hips Benign neoplasm of colon Bipolar disorder (HCC) Dr. Belle DDD (degenerative disc disease), lumbar Depressive disorder, not elsewhere classified Diverticulosis of colon (without mention of hemorrhage) HLD (hyperlipidemia) 06/13/2017 Hypertension Internal hemorrhoids without mention of complication Monoclonal paraproteinemia Morbid obesity (HCC) MARCELINA (obstructive sleep apnea) 1998 BiPAP Peripheral neuropathy Prediabetes 09/11/2019 Seasonal allergies Shoulder arthritis Systemic lupus erythematosus (HCC) 10/2021 PAST SURGICAL HISTORY Procedure Laterality Date ARTHROPLASTY TOTAL SHOULDER 04/03/2013 Right shoulder replacement ARTHRP ACETBLR/PROX FEM PROSTC AGRFT/ALGRFT 1993 Hip replacement, total RIGHT BACK SURGERY HX COLONOSCOPY FLX DX W/COLLJ SPEC WHEN PFRMD 08/11/1992 Colonoscopy COLONOSCOPY FLX DX W/COLLJ SPEC WHEN PFRMD 09/01/2018 Colonoscopy COLSC FLX W/RMVL OF TUMOR POLYP LESION SNARE TQ 06/26/2008 ESOPHAGOGASTRODUODENOSCOPY TRANSORAL DIAGNOSTIC 05/08/2020 EGD JOINT REPLACEMENT HX PAST SURGICAL HISTORY OF 1995 L5-S1 spinal fusion with pins, rods, and bolts PAST SURGICAL HISTORY OF 03/2011 Right hip revision PAST SURGICAL HISTORY OF 1970 right shoulder surgery PAST SURGICAL HISTORY OF Left 2018 shoulder replacement REVISE MEDIAN N/CARPAL TUNNEL SURG Left 01/25/2024 Left wrist, revision carpal tunnel release with neurolysis and nerve wrap. Synovial biopsy Psychiatric History: MDD, CAT Social History Tobacco Use Smoking status: Former Packs/day: 1.00 Years: 10.00 Additional pack years: 0.00 Total pack years: 10.00 Types: Cigarettes Quit date: 10/27/1983 Years since quittin.3 Smokeless tobacco: Never Vaping Use Vaping Use: Never used Substance Use Topics Alcohol use: Yes Comment: very rarely Drug use: No Substance use: He has not used tobacco since 1983. @[employer] describes current alcohol consumption as 3x week Drug use: Current drug use includes cannabis 2x week. Family History FAMILY HISTORY Problem Relation Age of Onset Cancer Mother skin Cancer Father KIDNEY other (Brain Tumor) Father Cancer Sister thyroid No Known Problems Brother Anesthesia Problems No Family History ROS was positive for: Fatigue Weakness or numbness of arms and legs Difficulty walking Sore tongue or mouth Persistent pain in joints All of the other systems reviewed were negative. OBJECTIVE: PHYSICAL EXAM: GENERAL APPEARANCE: Well appearing, well-hydrated, well nourished and alert SKIN: Head, neck, trunk, and extremities dry, intact and without lesions NECK: negative findings BACK: motor and sensory appear to be normal LUNGS: even and non-labored breathing, normal chest excursion HEART: Edema: No MUSCULOSKELETAL: able to stand from seated without assistance. Antalgic gait NEURO/PSYCH: cranial nerves 2-12 intact, speech normal, mental status intact BP 138/67 (BP Site: Left Arm, BP Position: Sitting, BP Cuff Size: Large Adult) Pulse (!) 57 Ht 172.1 cm (5' 7.76) Wt 127 kg (280 lb) SpO2 95% BMI 42.88 kg/m IMAGING: XR clavicle 02/21/24 - There is mild degenerative change at the AC joint with no acute clavicular fractures seen. ASSESSMENT: Cannabis use Chronic pain syndrome (primary encounter diagnosis) Systemic lupus erythematosus, unspecified sle type, unspecified organ involvement status (hcc) Numbness and tingling of foot Glenohumeral arthritis Anxiety and depression Amyloidosis, unspecified type (hcc) Possibly fibromyalgia Patient is a 73 year old male who presents with chronic widespread pain. Has diagnosis of SLE and amyloidosis. Has tried conservative treatment in the past without much pain relief. Discussed the comprehensive pain recovery program. Discussed ketamine infusions - discussed potential risks and benefits. Explained that due to the patient's cardiac history, a cardiac clearance is needed prior to any ketamine treatment. Patient verbalized understanding. Patient states that he is having several cardiac tests coming up. Will discuss ketamine treatment with his provider. Discussed the nutritional program, activity program, sleep program. Explained that the ketamine treatment program has over a year long wait time. Explained that the ketamine program is not accepting new patients at this time but that we can add him to the wait list. Encouraged the patient to seek ketamine treatment at other local clinics if desired. Discussed the importance of optimizing diet, exercise and sleep. Eat 3 healthy meals each day, during the day, minimize snacking and sugar. Drink plenty of fluids. Do some kind of physical activity for 20-30 mins each day. Discussed good sleep hygiene and the importance of sleeping on a schedule. Discussed alternative pain medications such as Namenda and low dose naltrexone. Discussed potential SE and benefits. PLAN: Further evaluation: continue with neurology Consult to [facility] Nutrition: work to optimize Therapies: start HEP Consideration - consult to PT Sleep: work to optimize Medications: continue with current prescribed medications Interventions: none Infusions: needs a cardiac clearance prior to any ketamine treatment - patient will provide 8. Pain Psychology: yes - consult placed Review, Ask, Review: yes Follow-up: as needed Jerry Gudino PA-C I spent a total of 55 minutes on the date of the service which included preparing to see the patient, [id number] patient care, completing clinical documentation, obtaining and/or reviewing separately obtained history, performing a medically appropriate examination, counseling and educating the patient/family/caregiver, and ordering medications, tests, or procedures. Important Patient Information: 1. To schedule Pain Recovery appointments or post-injection office visits, please call: [phone] 2. The nursing staff and medical assistants are an integral part of your pain recovery team and will be handling your phone calls and inquiries. 3. Your study results and treatment plan will be discussed during a follow-up appointment. If you do not have a follow-up appointment and wish to discuss any issues directly with me, please call: [phone] to set-up an appointment. 4. [facility] is best used for refill requests or yes or no questions. Anything more complicated will likely require a follow-up appointment that you can schedule by [phone]. 5. It is the practice of the Department to not fill disability or any other insurance-related forms/documentation. All of the office notes, study results, and other documentation as part of your evaluation will be available to you and to your Primary Care Physician (PCP). Use of this material to complete such forms will be at the discretion of your PCP/referring physician. 6. If you are scheduled for a ketamine infusion, you will be contacted regarding specific scheduling instructions in the future by our department. There is no need to contact our department regarding the scheduling process or your estimated wait; you will be contacted once there is an opening. documented in this encounter [facility] 02-24-2024 Telephone encounter Note The following approved medication requests have been transmitted electronically. Requested Prescriptions Refused Prescriptions Disp Refills tamsulosin (FLOMAX) 0.4 mg [Pharmacy Med Name: TAMSULOSIN CAP 0.4MG] 90 capsule 1 Sig: TAKE 1 CAPSULE ONCE DAILY AT BEDTIME Refused By: GOLDEN TERRAZAS Reason for Refusal: Records indicate that there is a valid prescription at the pharmacy Edinson Zarate MD [facility] 02-24-2024 Miscellaneous Notes The following approved medication requests have been transmitted electronically. Requested Prescriptions Refused Prescriptions Disp Refills tamsulosin (FLOMAX) 0.4 mg [Pharmacy Med Name: TAMSULOSIN CAP 0.4MG] 90 capsule 1 Sig: TAKE 1 CAPSULE ONCE DAILY AT BEDTIME Refused By: GOLDEN TERRAZAS Reason for Refusal: Records indicate that there is a valid prescription at the pharmacy Edinson Zarate MD documented in this encounter [facility] 02-21-2024 History of Present illness Narrative Radiology Service Progress Note PATIENT NAME: Zayda De La Vega DATE OF SERVICE: February 21, 2024 TIME: 2:51 PM PATIENT IDENTITY VERIFICATION COMPLETED USING TWO (2) IDENTIFIERS: Name and Date of confirmed by patient verbally. FALL SCREENING: Has the patient had 2 falls in the last year or 1 fall with injury or currently using an Ambulatory Assistive Device (Walker, Cane, Wheelchair, Crutches, etc.)? No PATIENT GENDER DATA: Male PATIENT RELEVANT IMPLANT DATA REVIEWED: Yes PATIENT PRESENTS WITH AN IMPLANTABLE OR ATTACHED NETWORK TECHNICAL ANALYST: No RADIOLOGY DEPARTMENT: General X-ray: Exam(s) Completed: Upper Extremity X-Ray(s): Clavicle, right PERIPHERAL IV DATA: Not applicable SIGNED BY: RT Julia(R) February 21, 2024 2:51 PM documented in this encounter [facility] 02-21-2024 History of Present illness Narrative Sleep Study Check-In Documentation Date: February 21, 2024 Name: Zayda De La Vega Patient was accompanied by Self. Location: [place] Latex allergy: No Tape allergy: No Current medications were reviewed with the patient:Yes Sleep aid taken by patient for the sleep study: [place] of sleep aid: Not Applicable Procedure was explained to the patient and all questions were answered. PAP treatment discussed and shown to patient: Yes Knowledge Program (KP): KP was not completed in [facility] by patient and accepted Study type: Polysomnogram Adverse Event: No (If yes create a new abstract) Comments: Patient was advised to follow up with their ordering provider regarding test results. Patient did not meet split night criteria. Patient requested to end study after 4 hours due to bad neuropathy pain. Tu Geiger documented in this encounter [facility] 02-20-2024 Telephone encounter Note Received referral from Dr. Peng Called patient re: amyloid deposits found on biopsy from surgery on 01/25/24 Reviewed the basics of amyloidosis and recommended follow up testing Patient agreeable. All questions answered. [facility] 02-20-2024 Miscellaneous Notes Received referral from Dr. Peng Called patient re: amyloid deposits found on biopsy from surgery on 01/25/24 Reviewed the basics of amyloidosis and recommended follow up testing Patient agreeable. All questions answered. documented in this encounter [facility] 02-17-2024 Instructions Katelyn Hamilton APRN.DISTRICT RESOURCE OFFICER - 02/17/2024 2:57 PM EDT Patient Instructions: Plan: MARCELINA: (1) Continue BIPAP at current settings of 15/11 cmH20. Machine needs to be replaced, but will need a new sleep study to qualify for devcie and supplies. Last study done at [facility] . Records not available. Replacement PAP Device Documentation: Face to face evaluation done February 17, 2024 Patient is using and benefiting from PAP therapy. Patient using their PAP unit. Patient desires to continue using PAP therapy. Will be getting a new sleep study. Last one done at [facility] . No records available. PAP unit needs to be replaced (current machine is working, but is old) Machine is not malfunctioning , but the age of the machine is ~ 9 years old. Machine is obsolete and should be replaced. Insurance: Face to face examination completed 02/17/24. Patient has fulfilled the insurance requirement with an annual visit for PAP therapy. Patient has met standard compliance measures. Please send patient PAP supplies as covered by insurance. DO NOT SEND SCRIPT TO [facility]. I WANT TO GET NEW SLEEP STUDY FIRST IF ABLE. THEN GET HIM A NEW MACHINE AND SUPPLIES. (2) I have ordered POLYSOMNOGRAPHY (PSG) SPLIT STUDY AHI > 15 apneas and/or hypopneas to evaluate for obstructive sleep apnea. Start CPAP at 5 cmH20 then titrate per protocol. Low threshold for switching to BIPAP for intolerance or hypoventilation. Currently using Bilevel PAP at 15/11 cmH2O. . Please fit patient with a mask and send mask home with patient. You will need to be scheduled a night in the sleep lab. Special instructions: Please encourage supine sleep and record sleep in the patient's habitual sleep position. Target REM/supine sleep Please add EtCO2 or Transcutaneous CO2 monitoring to evaluate for MARCELINA, sleep related hypoventilation, hypoxemia. Add BiPAP for intolerance or hypoventilation Sleep Aid: You may take a light over the counter medication like Melatonin or Benadryl unless you take a prescription sleep aid regularly. - What is a Split Night Polysomnography (PSG) with PAP Titration? This is a type of sleep study in which two night's worth of recordings are combined into a single overnight observation. Split-night sleep studies involve diagnostic polysomnography during the first portion of the night (sleep apnea discovered) followed by CPAP titration (test the settings of the PAP therapy) for the remainder of the night. This approach has been used to diagnose sleep apnea and titrate CPAP during a single night and can reduce costs. - Call [phone] to schedule your sleep study if it is not scheduled after your visit today with one of our schedulers. - The morning after your sleep study is completed, please contact our office to schedule a follow up visit (in clinic or virtual) in 2-3 weeks with Sleep MAURICE's or with Results Clinic who will be explain the results in detail and treatments options. Results are usually available within 10-14 business days. - Avoid driving when drowsy. Recommend that if you are dozing off while driving, that you do not drive until your sleepiness is appropriately treated. -Encouraged healthy lifestyle with adequate sleep ( 7-9 hours per night), diet and exercise. Follow up as discussed. Katelyn Hamilton APRN.EDOUARD What Are Sleep Studies? Sleep studies are tests that record specific body functions during sleep. Body functions measured during sleep may include heart rate, breathing rate and airflow, brain wave activity, eye movement, blood oxygen level and muscle movement. Why do I need a sleep study? Your doctor may suggest a sleep study if they think you have a sleep problem. Sleep studies help diagnose sleep disorders such as sleep apnea, narcolepsy, parasomnias or insomnia. Another reason to conduct a sleep study is to help determine if a particular treatment, such as positive airway pressure (PAP) therapy for patients with breathing problems during sleep, is working properly. What are the symptoms of sleep disorders? You might have a sleep disorder if you have any of these common symptoms: Snore loudly during sleep. Wake up suddenly gasping for breath. Feel tired and sleepy during the day. Toss and turn/are restless during sleep. Have difficulty falling asleep and staying asleep. What types of tests are performed in a sleep study? An in-lab sleep study -- or polysomnogram (PSG) -- is a comprehensive test used to diagnosis sleep and wake disorders. These tests are conducted overnight at a sleep study center, hospital or other designated site and are under the direct supervision of a trained medical technologist clinical. Common types of in-lab sleep studies are: Diagnostic (routine) overnight PSG: This is a sleep study that looks at the stages of sleep (including the amount of stage 1, stage 2, stage 3, and rapid eye movement (REM) sleep), arousals/awakenings from sleep and body functions during sleep and wakefulness, including breathing patterns, brain wave activity, heart rhythms, and muscle movements. It is usually performed to evaluate sleep-related breathing disorders (sleep apnea) or abnormal movements during sleep (REM sleep behavior disorder or frequent leg movements). Positive Airway Pressure (PAP) titration study: This study is performed after a diagnosis of sleep apnea has been made. The purpose of the study is to determine the appropriate pressure setting of the PAP machine to best treat sleep apnea. The air pressure delivered through the PAP mask is gradually increased while the patient is sleeping until the pauses in breathing that occur with sleep apnea are under control. Split-night PSG with PAP titration. Split night PSG is conducted when severe sleep apnea has been discovered during the first part of the routine PSG. The second half of the night is used to test the settings of the PAP therapy. Multiple sleep latency test (MSLT). This test is a daytime sleep study that consists of five 20 minute nap trials scheduled two hours apart. The test measures a person s tendency to fall asleep during the normal waking hours. MSLT is used to diagnose narcolepsy or other forms of hypersomnia (excessive sleepiness). To ensure accurate results, it is performed on the morning following a routine overnight PSG. Maintenance of wakefulness test (MWT). This test determines how well you remain awake under situations that make it easy to fall asleep. Patients usually sit in the dark for 40 minutes every two hours during the day, for a total of four trials. This test is used to assess safety risks (for example, the inability to remain awake while driving) and treatments to prevent sleepiness. What is home sleep apnea testing (HSAT)? Home sleep apnea testing is a modified type of sleep study that can be done in the comfort of your home. The portable sleep monitoring device records such information as breathing rate and airflow, heart rate, blood oxygen levels and snoring during sleep. This test helps to confirm the suspicion of moderate to severe obstructive sleep apnea. Home sleep apnea testing is not used as a screening tool for patients without symptoms. It should also not be used in: Patients with significant medical problems (such as heart failure, moderate to severe heart or lung disease or neuromuscular disease). Patients who have other sleep disorders (such as central sleep apnea, restless legs syndrome, insomnia, circadian rhythm disorders, parasomnias, or narcolepsy) in addition to the suspected obstructive sleep apnea. HSATs are generally mailed out to patients to be used on the night that they are received. Instructions are included to assist patients with how to use the device. Technical support is also available. Packaging and return instructions are included. Results are usually available within one to two weeks after the device has been returned. How Do I Prepare For My Sleep Study? You will receive specific instructions about how to prepare for your sleep study. Some general information is as follows: Do not drink alcohol or consume caffeine-containing beverages and foods (examples: coffee, tea, ladonna, chocolate, energy drinks, protein bars) for at least eight hours before your study. Tell your doctor about all medications you are taking. You may be asked to temporarily stop taking a medication before your study. On the day of your study: Keep to your normal meal times. Do not take any naps. Shower and wash your hair but do not apply conditioner, hair spray, gels, or other hair products. Do not apply creams, lotions, powders, perfume, aftershave/cologne, cosmetics or any other products to your face or body. These products can interfere with the recording by electrodes that are placed on your skin. Typically you do not arrive at your sleep study location until early evening. What should I bring to my sleep study? Loose-fitting sleepwear for an overnight study; loose, comfortable clothing for a daytime study. Personal toiletry items and a change of clothes for the next day. Book or smartphone while waiting to start the study. Most sleep sites have televisions in the room. What can I expect during an in-lab sleep study (PSG)? On the night of your sleep study, you will be assigned to a private bedroom in a sleep laboratory. Near the bedroom will be a central monitoring area, where the technologists monitor sleeping patients. You will be hooked up to equipment that might look uncomfortable. However, most patients fall asleep with little difficulty. The equipment used in a sleep test includes: Electrodes. Electrodes on your face, scalp and body send electrical signals to the measuring equipment. These signals, which are generated by your brain and muscle activity, are then recorded. EEG (electroencephalogram) electrodes measure and record brain wave activity. EOG (electro-oculogram) electrodes record eye movements. These movements are important in determining the different sleep stages, particularly rapid eye movement (REM) sleep. EMG (electromyogram) electrodes record muscle activity from the chin area and legs to identify abnormal movements in sleep and help in determining the presence of REM sleep. A nasal-oral airflow sensor records airflow through your nose and mouth. Belts placed around your chest and abdomen measure your breathing. A bandage-like oximeter probe on your finger measures the amount of oxygen in your blood. An ECG (electrocardiogram) records heart rate and rhythm. A snore microphone records snoring activity. A video recorder records body movements, which will be matched against the electrical signals recorded by the electrodes. documented in this encounter [facility] 02-17-2024 History of Present illness Narrative Images from the original note were not included. [facility] Sleep Disorders [facility] Virtual Visit Follow Up/ Established Patient Visit PATIENT NAME: [facility] ): This visit was conducted as a Virtual Visit, with patient's permission, via Zoom. It required patient-provider interaction for the medical decision making as documented below. Patient stated first & last name: Zayda De La Vega Patient stated : 1950 Patient stated current location: [place] [address] I have communicated my name, Katelyn Hamilton APRN.CNP, and active licensure Adult Certified Nurse Practitioner in the Sleep Medicine Center at [facility]. The patient's identity and physical location were verified at the time of this visit. 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 Virtual visits are a convenient way for us to meet, but there are some situations in which an in-person evaluation may be required at a later time. I want to check in to confirm your consent to be seen virtually today. Consent given: Yes <Assessment/Plan from LAST VISIT> Date of last visit : 09/14/22 IMPRESSION/PLAN: Diagnosis: G47.33, Z99.89 Obstructive sleep apnea on CPAP (primary encounter diagnosis) I10 Essential hypertension, benign G47.33 MARCELINA (obstructive sleep apnea) Sleep Studies (Reviewed Prior and Current): None Overview: Mr. Zayda De La Vega is a 71 year old male with a PMH of Numbness and Tingling, Ulnar Neuritis, Essential HTN, HPL, MARCELINA on PAP, GERD, BPH, Anemia, Major Depression, Anxiety, Morbid Obesitywho presents in person for Dx: MARCELINA (obstructive sleep apnea) [G47.33 (ICD-10-CM)]. Diagnosed with Sleep Apnea 20 years ago by a Sleep Physician in [place]. Last study done 5-6 years ago at [facility]. Lupus doctors not happy with respirations. They wanted him fitted with an up to date mask. ResMed device 7 years old. Suffering from a lot of congestion. Usually uses Nasal Pillows. Mouth falling open. Being fitted today with a hybrid mask. Leak 44L/min. Travis. Fitted and tested with new mask. Leak now at 4-5 L/min. Compliance Report: Machine Interrogated Today in Exam Room ResMed AirCurve 10 IPAP 15.0 EPAP 11.0 Ramp 20 minutes, starts at 5.0 cmH20. Humidity level 3. Usage days (100%) >= 4 hours - (100%) Average # hours nights used - 8.1 hours Pressure 90th % - IPAP 15.0/EPAP 10.9 Average time in large leak per day - 44 L/min Residual AHI - 0.4 - Doing well with PAP therapy. - Denies pressure intolerance. - Reports difficulty with Nasal Pillows. - Patient being fitted and tested with a new mask today. - Compliant and benefiting from treatment. - Face to face examination completed 09/14/22 - Mr. Zayda Adams has fulfilled his insurance requirement by following up with a new patient visit, average usage is 8 hours 1 minutes, and compliancy of 100 %. Plan: - Continue Bilevel PAP at 15/11 cmH2O. Consider getting a new PAP device in the future. - Given sample mask Pily Full Large to take home today. - [facility] ([employer]) - Will send [facility] new script for new supplies. - Will try to get prior Sleep Studies from [place]. - Remember to clean your mask and equipment regularly, as directed. - You should be eligible for new supplies approximately every 3-6 months, depending on your insurance coverage. Contact your Durable Medical Equipment ([employer]) company for new supplies as needed. - Follow up in late Spring 2022 with [facility]. If you have questions, feel free to send me a [employer] message. I spent a total of 60 minutes as this was a new patient to me on the date of the service which included preparing to see the patient, [id number] patient care, completing clinical documentation, counseling and educating the patient/family/caregiver and ordering medications, tests, or procedures. Katelyn Hamilton APRN.DISTRICT RESOURCE OFFICER <End Assessment/Plan from last visit> CURRENT VISIT: 02/17/2024 Interval history: Reports he got COVID twice in 9 months. It wiped me out and had to cancel sleep study testing. .Would like to set up testing again.. Reports he recently also had a wrist biopsy done, reveling Amyloidosis. Also Monoclonal paraproteinemia. Suppose to be having a bone marrow biopsy on 02/22/24. Reports, I wake up with some headaches. I don't really feel rested. Prior studies done 20 years. No records available. Doesn't recall reason for being placed on BIPAP. May have been due to hypoventilation. I found some documentation from a prior note. Lupus doctors not happy with respirations. They wanted him fitted with an up to date mask. ResMed device 7 years old. Without PAP device, I wake up quite a lot. Reports he switches back and forth between nasal and full face mask depending on sinus congestion. Follow up visit for MARCELINA. (Continue Bilevel PAP at 15/11 cmH2O. Consider getting a new PAP device in the future. Given sample mask Pily Full Large to take home today. Will send [employer] new script for new supplies.) Relevant study results reviewed as noted below, if applicable. SLEEP APNEA Sleep apnea type : MARCELINA, Most Recent Apnea-Hypopnea Index (AHI): Diagnosed with Sleep Apnea 20 years ago by a Sleep Physician in [place]. Last study done 5-6 years ago at [facility]. Treatment : PAP therapy DME: [facility] PAP History: Uses Bilevel PAP for 8 hours per night, 7 nights per week. Current PAP setting: Bilevel PAP at 15/11 cmH2O. . Difficulties with Bilevel PAP: None Reviewed objective PAP compliance data: Not currently available. Mask type: Nasal mask, Full face mask. Mask issues: No issues. Uses chin strap: No Uses ramp function: No Uses humidity: Yes, Protocol: Distilled water. There is a perceived benefit by the patient: Yes, However, wakes up with some headaches. I don't really feel rested. Observers report persistence of snoring with Bilevel PAP use. SLEEP HYGIENE QUESTIONS: Bedtime : 2300-midnight Wake up Time : 1100 Time it takes to fall sleep : I fall asleep rather directly. Activities in bed before falling asleep : None Number of times patient wakes up per night : 0-2 Reason (s) why patient wakes up during the night : Voids Estimated total sleep time ( in a 24 hour period of time) : 6-8 Naps : Yes, lasting 60-90 minutes, feels better after a nap in the afternoon OTHER RELEVANT LABS AND STUDIES: Ferritin Date Value Ref Range Status 12/08/2018 111.2 30.3 - 565.7 ng/mL Final Transferrin Saturation Date Value Ref Range Status 12/08/2018 26 15 - 57 % Final Hemoglobin Date Value Ref Range Status 02/13/2024 12.9 (L) 13.0 - 17.0 g/dL Final 02/06/2024 12.5 (L) 13.0 - 17.0 g/dL Final Iron Date Value Ref Range Status 12/08/2018 79 41 - 186 ug/dL Final TIBC Date Value Ref Range Status 12/08/2018 309 232 - 386 ug/dL Final No results found. PATIENT-ENTERED QUESTIONNAIRE SLEEP SCORES 02/11/2024 Sleep Questions Reason for visit: Sleep apnea Difficulty falling or staying asleep or poor sleep quality Excessive daytime sleepiness On average, hours of sleep in 24 hours: 6 Average hours of CPAP per night: 5.5 Percent of nights CPAP used at least 4 hours: 100 Accidents or near accidents due to drowsy drivin 02/11/2024 [place] Sleepiness Scale Score 4 (No clinically significant daytime sleepiness) 03/10/2021 05/25/2021 02/11/2024 PROMIS CAT Sleep Disturbance PROMIS Sleep Disturbance T-Score 63 (moderate) 58 (mild) 58 (mild) PROMIS Sleep Disturbance Percentile 10 21 21 02/22/2022 02/11/2024 Insomnia Severity Index Score 14 14 05/25/2021 02/22/2022 02/11/2024 PHQ-9 Score 5 9 5 08/01/2023 11/22/2023 02/11/2024 PROMIS Global Health - (T-Scores - the mean of general population = 50. Five points is a clinically meaningful difference.) Physical T-Score 34.9 34.9 34.9 Mental T-Score 45.8 41.1 41.1 CURRENT MEDICATIONS: pregabalin (LYRICA) 225 mg capsule Take 1 capsule by mouth two times a day for 90 days. HYDROcodone-acetaminophen (NORCO) 5-325 mg per tablet Take 1 tablet by mouth every 8 hours as needed for pain for up to 30 days. meloxicam (MOBIC) 15 mg tablet Take 1 tablet by mouth once daily. HYDROcodone-acetaminophen (NORCO) 5-325 mg per tablet Take 0.5 tablets by mouth every 8 hours as needed for pain. hydrOXYchloroQUINE (PLAQUENIL) 200 mg tablet Take 1 tablet by mouth two times a day. azelastine 0.1% nasal spray Use 1 [place] in each nostril two times a day. tamsulosin (FLOMAX) 0.4 mg Take 1 capsule by mouth daily at bedtime. fluticasone (FLONASE) 50 mcg/actuation nasal spray USE 2 SPRAYS IN EACH NOSTRIL ONCE DAILY amLODIPine (NORVASC) 5 mg tablet Take 1 tablet by mouth once daily. metoprolol succinate ER (TOPROL XL) 25 mg 24 hr tablet Take 2 tablets by mouth once daily. guaiFENesin (MUCINEX) 600 mg 12 hr tablet Take 1,200 mg by mouth twice daily as needed for cold/allergy symptoms. fish oil/borage/flax/om3,6,9 1 (OMEGA 3-6-9 ORAL) Take by mouth. fexofenadine (ANÍBAL) 180 mg tablet TAKE 1 TABLET DAILY alpha lipoic acid (LIPOIC ACID ORAL) Take by mouth. ZINC ORAL Take by mouth. LYSINE ORAL Take by mouth. CPAP Continue BiPAP with new settings: @ 14/8 cm of water with humidification. No new equipment is needed. aspirin, enteric coated (ASPIRIN, ENTERIC COATED) 81 mg EC tablet Take 81 mg by mouth once daily. IRON, FERROUS SULFATE, ORAL Take by mouth once daily. ASCORBIC ACID (VITAMIN C ORAL) Take by mouth once daily. buPROPion (WELLBUTRIN) 75 mg tablet Take 150 mg by mouth twice daily. Review of Systems Constitutional: Positive for fatigue. HENT: Negative. Respiratory: Positive for cough. Cardiovascular: Negative. Genitourinary: Positive for nocturia. Neurological: Positive for headaches. VITAL SIGNS: Deferred due to virtual visit. PHYSICAL EXAMINATION: Constitutional: Appearance: Well groomed. Well nourished MALE. Very pleasant. Neurological: General: No focal deficit present. Mental Status: A&OX3 (person, place, and time). Speech: Clear, projects well. Memory: Intact, responses appropriate. Mood and Affect: Mood normal. Behavior: Behavior normal Assessment & Plan Diagnosis: Obstructive sleep apnea on cpap (primary encounter diagnosis) Essential hypertension, benign Amyloidosis, unspecified type (hcc) Grade i diastolic dysfunction Overview: Zayda De La Vega is a 73 year old year old male with a PMH as noted who presents via Virtual Visit for MARCELINA. (Continue Bilevel PAP at 15/11 cmH2O. Consider getting a new PAP device in the future. Given sample mask Pily Full Large to take home today. Will send [employer] new script for new supplies.) Reports he got COVID twice in 9 months. It wiped me out and had to cancel sleep study testing. .Would like to set up testing again.. Reports he recently also had a wrist biopsy done, reveling Amyloidosis. Also Monoclonal paraproteinemia. Suppose to be having a bone marrow biopsy on 02/22/24. Reports, I wake up with some headaches. I don't really feel rested. Prior studies done 20 years. No records available. Doesn't recall reason for being placed on BIPAP. May have been due to hypoventilation. I found some documentation from a prior note. Lupus doctors not happy with respirations. They wanted him fitted with an up to date mask. ResMed device 7 years old. Without PAP device, I wake up quite a lot. Reports he switches back and forth between nasal and full face mask depending on sinus congestion. - Doing fairly well with BI PAP therapy. - ResMed, AirCurve 10, IPAP 15.0, EPAP 11.0 (old machine ~ 9 years old) - Denies mask or pressure intolerance. - Compliant and benefiting from treatment. - However, is hearing him snore, waking up with headaches, and not waking up feeling as rested in the morning. - Face to face examination completed February 17, 2024 - Zayda De La Vega has fulfilled his insurance requirement with an annual visit for PAP therapy, average usage is 6-8 hours, and compliancy of >70 %. Plan: MARCELINA: (1) Continue BIPAP at current settings of 15/11 cmH20. Machine needs to be replaced, but will need a new sleep study to qualify for devcie and supplies. Last study done at [facility] . Records not available. Replacement PAP Device Documentation: Face to face evaluation done February 17, 2024 Patient is using and benefiting from PAP therapy. Patient using their PAP unit. Patient desires to continue using PAP therapy. Will be getting a new sleep study. Last one done at [facility] . No records available. PAP unit needs to be replaced (current machine is working, but is old) Machine is not malfunctioning , but the age of the machine is ~ 9 years old. Machine is obsolete and should be replaced. Insurance: Face to face examination completed 02/17/24. Patient has fulfilled the insurance requirement with an annual visit for PAP therapy. Patient has met standard compliance measures. Please send patient PAP supplies as covered by insurance. DO NOT SEND SCRIPT TO [facility]. I WANT TO GET NEW SLEEP STUDY FIRST IF ABLE. THEN GET HIM A NEW MACHINE AND SUPPLIES. (2) I have ordered POLYSOMNOGRAPHY (PSG) SPLIT STUDY AHI > 15 apneas and/or hypopneas to evaluate for obstructive sleep apnea. Start CPAP at 5 cmH20 then titrate per protocol. Low threshold for switching to BIPAP for intolerance or hypoventilation. Currently using Bilevel PAP at 15/11 cmH2O. . Please fit patient with a mask and send mask home with patient. You will need to be scheduled a night in the sleep lab. Special instructions: Please encourage supine sleep and record sleep in the patient's habitual sleep position. Target REM/supine sleep Please add EtCO2 or Transcutaneous CO2 monitoring to evaluate for MARCELINA, sleep related hypoventilation, hypoxemia. Add BiPAP for intolerance or hypoventilation Sleep Aid: You may take a light over the counter medication like Melatonin or Benadryl unless you take a prescription sleep aid regularly. - What is a Split Night Polysomnography (PSG) with PAP Titration? This is a type of sleep study in which two night's worth of recordings are combined into a single overnight observation. Split-night sleep studies involve diagnostic polysomnography during the first portion of the night (sleep apnea discovered) followed by CPAP titration (test the settings of the PAP therapy) for the remainder of the night. This approach has been used to diagnose sleep apnea and titrate CPAP during a single night and can reduce costs. - Call [phone] to schedule your sleep study if it is not scheduled after your visit today with one of our schedulers. - The morning after your sleep study is completed, please contact our office to schedule a follow up visit (in clinic or virtual) in 2-3 weeks with Sleep [facility]'s or with Results Clinic who will be explain the results in detail and treatments options. Results are usually available within 10-14 business days. - Avoid driving when drowsy. Recommend that if you are dozing off while driving, that you do not drive until your sleepiness is appropriately treated. -Encouraged healthy lifestyle with adequate sleep ( 7-9 hours per night), diet and exercise. Follow up as discussed. I spent a total of 36 minutes. This was a follow up patient to me on the date of the service which included preparing to see the patient, [id number] patient care, completing clinical documentation, counseling and educating the patient/family/caregiver and ordering medications, tests, or procedures. Katelyn Hamilton APRN.DISTRICT RESOURCE OFFICER Activity Duration Pre-charting 2 minutes Pre-charting 5 minutes Pre-charting 6 minutes Current session 36 minutes Total time: 51 minutes documented in this encounter [facility] 02-13-2024 History of Present illness Narrative CHIEF COMPLAINT Patient presents with: check up HISTORY OF PRESENT ILLNESS Zayda De La Vega is a 73 year old male who presents here today for follow up. I last saw this patient on 11/24/2023. lump - Has an inflamed lymph node (?) involving his clavicle R side base of the neck. Amyloidosis - Reports that during carpal tunnel surgery on 01/25/2024, they did a biopsy which showed amyloid deposits - Scheduled for bone marrow aspiration and biopsy on 02/28/2024, has had a bunch of other labs. Chronic Pain Syndrome - Diffusely all over, but especially in the feet - Scheduled to see neurosurgeon on 02/24/2024 - Also endorses flare ups of skin due to lupus/arthritis, feels like he has a sunburn, denies rash - Notes that he has reduced use of Alexander. - Had switched from meloxicam to Advil, this was not beneficial Health Maintenance Due for Covid-19 Vaccine (2022- season) Due for Advance Directive Discussion Labs reviewed. Past medical history, appointments, medications, allergies reviewed. REVIEW OF SYSTEMS General: Feels well, no weight changes, fevers or chills. HEENT: No sinus congestion, earache, sore throat. Cardiac: No chest pain, palpitations Resp: No cough, wheeze, shortness of breath GI: No reflux symptoms, food intolerance, bowel changes. : No urinary frequency, dysuria. MS: No pain or joint complaints. PAST MEDICAL HISTORY PAST MEDICAL HISTORY Diagnosis Date Anxiety Dr. Belle Arthritis of both hips Benign neoplasm of colon Bipolar disorder (HCC) Dr. Belle DDD (degenerative disc disease), lumbar Depressive disorder, not elsewhere classified Diverticulosis of colon (without mention of hemorrhage) HLD (hyperlipidemia) 06/13/2017 Hypertension Internal hemorrhoids without mention of complication Monoclonal paraproteinemia Morbid obesity ([facility]) MARCELINA (obstructive sleep apnea) 1997 BiPAP Peripheral neuropathy Prediabetes 09/11/2019 Seasonal allergies Shoulder arthritis Systemic lupus erythematosus (HCC) 10/2021 PHYSICAL EXAMINATION BP 149/79 Pulse (!) 54 Ht 172.1 cm (5' 7.76) Wt 128.5 kg (283 lb 4.7 oz) SpO2 94% BMI 43.39 kg/m Repeat BP: 128/66 General: Alert, well developed, well nourished, no distress, pleasant and cooperative. Morbidly obese. Heart: Regular rate and rhythm. Normal S1 and S2. No murmurs, rubs, or gallops. Lungs: Clear to auscultation bilaterally. No respiratory distress. No wheezes, rales, or rhonchi. Abdomen: Soft, non-tender, no distention. Extremities: Feet/ankles without edema, posterior tibial pulses full and symmetrical. Data Reviewed Latest Ref Rng 02/06/2024 Protein, Total 6.3 - 8.0 g/dL 6.2 (L) Albumin 3.9 - 4.9 g/dL 3.8 (L) Calcium 8.5 - 10.2 mg/dL 9.1 Bilirubin, Total 0.2 - 1.3 mg/dL 0.3 Alkaline Phosphatase 38 - 113 U/L 63 AST 14 - 40 U/L 18 ALT 10 - 54 U/L 16 Glucose 74 - 99 mg/dL 111 (H) BUN 9 - 24 mg/dL 13 Creatinine 0.73 - 1.22 mg/dL 0.73 Sodium 136 - 144 mmol/L 139 Potassium 3.7 - 5.1 mmol/L 4.6 Chloride 97 - 105 mmol/L 107 (H) CO2 22 - 30 mmol/L 23 Anion Gap 9 - 18 mmol/L 9 eGFR >=60 mL/min/1.73m 95 WBC 3.70 - 11.00 k/uL 6.47 RBC 4.20 - 6.00 m/uL 4.16 (L) Hemoglobin 13.0 - 17.0 g/dL 12.5 (L) Hematocrit 39.0 - 51.0 % 39.0 MCV 80.0 - 100.0 fL 93.8 MCH 26.0 - 34.0 pg 30.0 MCHC 30.5 - 36.0 g/dL 32.1 RDW-CV 11.5 - 15.0 % 13.9 Platelet Count 150 - 400 k/uL 272 MPV 9.0 - 12.7 fL 8.9 (L) Absolute nRBC <0.01 k/uL <0.01 Cholesterol, Total <200 mg/dL 139 Triglyceride <150 mg/dL 177 (H) HDL Cholesterol >39 mg/dL 28 (L) Non HDL Cholesterol <130 mg/dL 111 Fasting Time hrs 12 VLDL Cholesterol <30 mg/dL 35 (H) TC:HDL Ratio <5.10 4.96 LDL Cholesterol <100 mg/dL 76 LDL:HDL Ratio <2.54 2.71 (H) Hemoglobin A1C 4.3 - 5.6 % 5.8 (H) Estimated Average Glucose mg/dL 120 Legend: (L) Low (H) High Assessment/Plan (M32.19) Systemic lupus erythematosus with other organ involvement, unspecified SLE type (HCC) (primary encounter diagnosis) (M32.9) Systemic lupus erythematosus, unspecified SLE type, unspecified organ involvement status (HCC) Comment: Fairly managed on plaquenil. Still experiences break through flare ups from time to time. Plan: Continue current regimen (C90.00) 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) Comment: Found to have amyloid deposits during carpal tunnel surgery on 01/25/2024. Plans to have bone marrow aspiration and biopsy Plan: Continue to follow with hematology (M15.9) Primary osteoarthritis involving multiple joints Comment: Attempted to switch from meloxicam to Advil, did not have any relief. 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 Will obtain xray Plan: XR CLAVICLE 2V RIGHT (E85.9) Amyloidosis, unspecified type (HCC) Comment: recently discovered. Plan: keep follow up with hem/onc (E66.01, Z68.41) Morbid obesity with body mass index (BMI) of 40.0 to 44.9 in adult (HCC) Comment: stymied in wt loss efforts by the pain Plan: continue efforts to curb intake, Requested Prescriptions No prescriptions requested or ordered in this encounter RTO: 6 months Scribe Attestation: By signing my name below, I, Je Cunha, attest that this documentation has been prepared under the direction and in the presence of Alex Zarate M.D. Electronically Signed: Celsa Valencia. February 13, 2024 1:09 PM Provider Attestation: I, Edinson Zarate MD, personally performed the services described in this documentation. All medical record entries made by the scribe were at my direction and in my telephonic presence. I have reviewed the chart and discharge instructions (if applicable), and agree that the record reflects my personal performance and is accurate and complete. Electronically Signed: Edinson Zarate MD February 13, 2024 3:44 PM documented in this encounter [facility] 02-10-2024 History of Present illness Narrative BM orders and amyloid testing, Echo documented in this encounter [facility] 02-06-2024 History of Present illness Narrative Aruna Menard PA-C Department of Orthopaedics Orthopaedics [address] [facility] [address] Dept: [phone] Dept February 06, 2024 CHIEF COMPLAINT: Post Op and Carpal Tunnel of the Left Hand. ASSESSMENT: G56.03 Bilateral carpal tunnel syndrome (primary encounter diagnosis) G56.02 Carpal tunnel syndrome on left SUMMARY/PLAN: Patient presents 12 days status post left carpal tunnel revision. He is doing well, having some 4-10 pulling at at the incision site, especially at the wrist crease. We discussed proper hand washing, no soaking of the operative hand. No heavy lifting, pushing or pulling with the operative hand, encourage gentle motion. We discussed scar massage. Follow up as planned. Exam: Incision sites well-approximated without erythema or drainage, there is mild but appropriate erythema at the wrist crease, no drainage is noted. Moderate edema of the wrist extending up in all the digits. Patient is able to form a loose composite fist with subjective tightness. Numbness in the radial 3 digits. Imaging: Deferred today. Mr. aZyda De La Vega was advised as to contrast therapies and/or to take analgesics/anti-inflammatories as needed and all contraindications were reviewed. Supporting Information Below: Medications: Current Outpatient Medications Medication Sig pregabalin (LYRICA) 225 mg capsule Take 1 capsule by mouth two times a day for 90 days. HYDROcodone-acetaminophen (NORCO) 5-325 mg per tablet Take 1 tablet by mouth every 8 hours as needed for pain for up to 30 days. meloxicam (MOBIC) 15 mg tablet Take 1 tablet by mouth once daily. hydrOXYchloroQUINE (PLAQUENIL) 200 mg tablet Take 1 tablet by mouth two times a day. azelastine 0.1% nasal spray Use 1 [place] in each nostril two times a day. tamsulosin (FLOMAX) 0.4 mg Take 1 capsule by mouth daily at bedtime. fluticasone (FLONASE) 50 mcg/actuation nasal spray USE 2 SPRAYS IN EACH NOSTRIL ONCE DAILY amLODIPine (NORVASC) 5 mg tablet Take 1 tablet by mouth once daily. metoprolol succinate ER (TOPROL XL) 25 mg 24 hr tablet Take 2 tablets by mouth once daily. guaiFENesin (MUCINEX) 600 mg 12 hr tablet Take 1,200 mg by mouth twice daily as needed for cold/allergy symptoms. fish oil/borage/flax/om3,6,9 1 (OMEGA 3-6-9 ORAL) Take by mouth. fexofenadine (ANÍBAL) 180 mg tablet TAKE 1 TABLET DAILY alpha lipoic acid (LIPOIC ACID ORAL) Take by mouth. ZINC ORAL Take by mouth. LYSINE ORAL Take by mouth. CPAP Continue BiPAP with new settings: @ 14/8 cm of water with humidification. No new equipment is needed. aspirin, enteric coated (ASPIRIN, ENTERIC COATED) 81 mg EC tablet Take 81 mg by mouth once daily. IRON, FERROUS SULFATE, ORAL Take by mouth once daily. ASCORBIC ACID (VITAMIN C ORAL) Take by mouth once daily. buPROPion (WELLBUTRIN) 75 mg tablet Take 150 mg by mouth twice daily. HYDROcodone-acetaminophen (NORCO) 5-325 mg per tablet Take 0.5 tablets by mouth every 8 hours as needed for pain. famotidine (PEPCID) 20 mg tablet Take 1 tablet by mouth twice daily. CPAP/BIPAP/OTHER Type .CPAPSettings into a note to see current settings/supplies/DME information. (Patient not taking: Reported on 01/20/2024) CPAP/BIPAP/OTHER Type .CPAPSettings into a note to see current settings/supplies/DME information. (Patient not taking: Reported on 01/20/2024) No current facility-administered medications for this visit. Allergies: Aspartame, Betadine [Povidone-Iodine], Cymbalta [Duloxetine], Lisinopril, Losartan, Niacin, Penicillins, Seasonal Allergies, Sudafed [Pseudoephedrine Hcl], Tamiflu [Oseltamivir Phosphate], Trazodone, and Ultram [Tramadol] This note was partially generated using [employer] voice recognition system, and there may be some incorrect words, spellings, and punctuation that were not noted in checking the note before saving. Aruna Menard PA-C AMB ROOMING INTAKE FLOWSHEET DATA Pain Pain Level: 4 Pain Location: Hand-Left Description: Other: See comment, Tightness (Patient states it's uncomfortable) Duration Amount of Time: 12 Duration Units: Days Frequency: Continuous Intervention/Comfort measure: Reposition, Relaxation Patient presents with: Left Hand - Post Op, Carpal Tunnel Patient is 1 week 5 days post op L carpal tunnel release. He c/o constant discomfort and tightness feeling at sutures. Reports redness to sutures near hand and it appears to be slightly open. No drainage. documented in this encounter [facility] 02-01-2024 Telephone encounter Note The following approved medication requests have been transmitted electronically. Requested Prescriptions Signed Prescriptions Disp Refills pregabalin (LYRICA) 225 mg capsule 180 capsule 0 Sig: Take 1 capsule by mouth two times a day for 90 days. Authorizing Provider: EDINSON ZARATE MD [facility] 02-01-2024 Miscellaneous Notes The following approved medication requests have been transmitted electronically. Requested Prescriptions Signed Prescriptions Disp Refills pregabalin (LYRICA) 225 mg capsule 180 capsule 0 Sig: Take 1 capsule by mouth two times a day for 90 days. Authorizing Provider: EDINSON ZARATE MD Pharmacy verified in [facility] Patient has been identified by name and date of : Yes Patient aware RX will be sent to pharmacy. No need to notify patient. Patient phones for refill(s): Requested Prescriptions Pending Prescriptions Disp Refills pregabalin (LYRICA) 225 mg capsule 180 capsule 0 Sig: Take 1 capsule by mouth two times a day for 90 days. Date of last office visit : 09/08/2023 Date of next office visit : 02/13/2024 Last 2 Encounter Wt Readings: Date: Wt: 01/20/2024 127.5 kg (281 lb) 01/17/2024 127.5 kg (281 lb) Not applicable Please advise. Sienna Inman LPN documented in this encounter [facility] 01-31-2024 Telephone encounter Note Pharmacy verified in [facility] Patient has been identified by name and date of : Yes Patient aware RX will be sent to pharmacy. No need to notify patient. Patient phones for refill(s): Requested Prescriptions Pending Prescriptions Disp Refills pregabalin (LYRICA) 225 mg capsule 180 capsule 0 Sig: Take 1 capsule by mouth two times a day for 90 days. Date of last office visit : 09/08/2023 Date of next office visit : 02/13/2024 Last 2 Encounter Wt Readings: Date: Wt: 01/20/2024 127.5 kg (281 lb) 01/17/2024 127.5 kg (281 lb) Not applicable Please advise. Sienna Inman LPN [facility] 01-22-2024 Miscellaneous Notes 2nd attempt to reach for scheduling with Dr. Zarate, [facility]. Hilary Pendleton 1st attempt, sent [employer] message. Hilary Pendleton He is overdue for appt in office. No Refill on Alexander at this time. Edinson Zarate MD Last appointment: 11/24/23 Next appointment: 02/13/24 Pharmacy verified in [facility]. Refill(s) requested: Requested Prescriptions Pending Prescriptions Disp Refills HYDROcodone-acetaminophen (NORCO) 5-325 mg per tablet Sig: Take 0.5 tablets by mouth every 8 hours as needed for pain. Order(s) pended. Please advise. Reagan Morales MA, MECHANICAL LEAD documented in this encounter [facility] 01-20-2024 Instructions Divine Spears PA-C - 01/20/2024 8:53 AM EDT PATIENT PREOPERATIVE INSTRUCTIONS Yoni Peng MD has scheduled you for your procedure at this surgery center: [facility]: [phone] -- [address] [address]. Please read below carefully for your personalized instructions. Dietary Restrictions: - No solid food after midnight. - You may have 12 ounces of clear liquids (water, clear juices such as apple juice or gatorade, carbonated beverages, clear tea, black coffee, jello) until 2 hours before scheduled arrival at facility. - Do not drink any alcohol after midnight the night before your surgery. Medications: Unless instructed differently below, stay on all of your medications until your surgery. Pre-Surgery Med Instructions Medication Instructions meloxicam (MOBIC) 15 mg tablet Stop 7 days before surgery HYDROcodone-acetaminophen (NORCO) 5-325 mg per tablet Do not take the morning of surgery hydrOXYchloroQUINE (PLAQUENIL) 200 mg tablet Take the day of surgery with a small sip of water azelastine 0.1% nasal spray Continue to take as you normally do tamsulosin (FLOMAX) 0.4 mg Take the day of surgery with a small sip of water pregabalin (LYRICA) 225 mg capsule Take the day of surgery with a small sip of water fluticasone (FLONASE) 50 mcg/actuation nasal spray Continue to take as you normally do amLODIPine (NORVASC) 5 mg tablet Take the day of surgery with a small sip of water metoprolol succinate ER (TOPROL XL) 25 mg 24 hr tablet Take the day of surgery with a small sip of water guaiFENesin (MUCINEX) 600 mg 12 hr tablet Continue to take as you normally do fexofenadine (ANÍBAL) 180 mg tablet Do not take the day of surgery aspirin, enteric coated (ASPIRIN, ENTERIC COATED) 81 mg EC tablet Stop 7 days before surgery IRON, FERROUS SULFATE, ORAL OK to take as you normally do buPROPion (WELLBUTRIN) 75 mg tablet Take the day of surgery with a small sip of water If you take any medications for erectile dysfunction-Cialis (Tadalafil), Levitra, Staxyn (Vardenafil) Viagra (Sildenenafil please do not take these for 48 hours before surgery. If you start any new medications after today's visit, please contact the surgeon's office. Blood Thinning Medications: - Stop NSAIDS (Ibuprofen, Advil, Aleve, Motrin, Celebrex, Mobic, etc.) 7 days before surgery, as directed by your surgeon. - Stop Aspirin 7 days before surgery, as directed by your surgeon. - Stop Vitamin E, ALL multi-vitamins, herbals and dietary supplements 14 days before surgery. - You may take Tylenol (Acetaminophen) or any of your pain medications that do not contain aspirin or NSAIDS as needed. Vitamins/supplements prescribed for a specific purpose (e.g., vitamin D and calcium for osteoporosis, vitamin B12 for B12 deficiency) should be continued, but all others (especially any including vitamins A and E) should be stopped. Important Reminders: - Candy, mints, and tobacco products are NOT permitted the morning of surgery. - Hearing aids, dentures and glasses may be worn the morning of surgery. - NO jewelry, body piercings, makeup, hairpins or contacts are to be worn the day of surgery. If you develop symptoms such as a fever, cold, or flu, or have other changes to your health within TWO DAYS of scheduled surgery or the morning of surgery, please contact the surgery center above. Personal Belongings: -Please have photo ID and insurance cards. -If you do not have a copy of advance directives on file with us, please bring a copy with you on the day of surgery. - Leave ALL valuables and money at home or with family members. For Outpatient Procedures: - YOU MUST HAVE A RESPONSIBLE STREET INSPECTOR TAKE YOU HOME. A AUTOMOTIVE DESIGNER OR LUMP RECEIVER CANNOT BE MADE A RESPONSIBLE STREET INSPECTOR. - We recommend that a responsible person stays with you overnight to take care of you. - You cannot stay in a hotel alone after outpatient surgery. You will not be permitted to have your surgery, if you do not have someone to take care of you. Arrival Time for Surgery: - The Surgery Center or hospital where you are having surgery will call the afternoon before surgery (or Tuesday for Tuesday surgery) with a scheduled arrival time. - If you have not heard by 4 pm, please contact the surgery center above. Please be aware that emergency situations arise, which may delay or change your surgical time. If this happens, we will notify you as soon as possible and regret any inconvenience. If you already have an Advance Directive, please fax a copy to [phone] or email to for it to be added to your chart. If you do not have an Advance Directive, you can find the appropriate form and more information at [email or web address]. We recommend that you complete the Advance Directive form found on the website and bring it with you the day of your surgery. It can be witnessed and scanned into your chart that day. Divine Spears PA-C documented in this encounter [facility] 01-20-2024 History and physical note HISTORY AND PHYSICAL EXAMINATION SERVICE DATE: 01/20/2024 SERVICE TIME: 9:50 AM PRIMARY CARE PHYSICIAN: Edinson Zarate MD REASON FOR VISIT: Zayda De La Vega is a 73 year old male who is scheduled for Procedure(s): DECOMPRESSION NERVE MEDIAN CARPAL TUNNEL - REVISION (Left) at the request of Dr. Yoni Peng for consultation. My final recommendation will be communicated back to the requesting physician by way of shared medical record or letter. Subjective The patient has the following: ACTIVE PROBLEM LIST Thoracic Or Lumbosacral Neuritis Or Radiculitis, Unspecified Congenital Spondylolisthesis Essential Hypertension, Benign Other Seborrheic Keratosis Monoclonal Paraproteinemia Benign Neoplasm of Colon Diverticulosis of Colon (Without Mention of Hemorrhage) Internal Hemorrhoids Without Mention of Complication Hip Replacement Anxiety Adhesive Capsulitis of Shoulder Shoulder Arthritis Rotator Cuff Strain Ulnar Neuritis Primary Localized Osteoarthrosis of Shoulder Region Abnormality of Gait Shoulder Joint Replacement Status Pes Planus of Both Feet Arthritis, Midfoot Glenohumeral Arthritis Obstructive Sleep Apnea On Cpap Major Depression, Recurrent, Chronic (Hcc) Hld (Hyperlipidemia) Left Shoulder Pain Prediabetes Morbid Obesity With Body Mass Index (Bmi) of 40.0 to 44.9 in Adult (Hcc) Gerd Without Esophagitis Food Allergy History of Lumbosacral Spine Surgery Numbness and Tingling of Foot Muscle Weakness Primary Osteoarthritis Involving Multiple Joints Bph With Obstruction/Lower Urinary Tract Symptoms Systemic Lupus Erythematosus (Hcc) Grade I Diastolic Dysfunction COVID-19 Immunization Status Overdue - Covid-19 Vaccine () Overdue since 06/03/2023 01/11/2023 Postponed until 01/12/2024 by Sienna Inman LPN (Declined at this time) 05/05/2022 Imm Admin: COVID-19 original vaccine, booster dose, monovalent (MODERNA) 04/19/2022 Postponed until 06/03/2022 by Sienna Inman LPN (Declined at this time) Only the first 3 history entries have been loaded, but more history exists. CHIEF COMPLAINT: pre op HPI: Zayda De La Vega is a 73 year old male presenting for pre-anesthesia consultation. Pt has history of carpal tunnel syndrome of the left wrist. Above procedure recommended to manage symptoms. Procedure scheduled on 01/25/2024 at [facility]. REVIEW OF SYSTEMS: General: No weight loss, malaise or fevers. Neurological: Positive for: peripheral neuropathy. Negative for: headaches, seizures, TIA and strokes. Respiratory: Positive for: obstructive sleep apnea and CPAP/BiPAP compliant. Negative for: asthma, COPD, current cough, dyspnea, home oxygen, tobacco use and URI < 2 weeks. Cardiovascular: Denies dizziness or syncope. Positive for: hyperlipidemia and hypertension Negative for: AICD/PPM, arrhythmia, CAD, chest pain, CHF, DVT/PE, recent VA, murmur/valvular heart disease, open heart surgery and valve surgery. GI: Positive for: GERD (prn pepcid) Negative for: abdominal pain, GI bleed <30 days, hepatitis, liver disease, nausea and vomiting. : Denies kidney disease Positive for: BPH. Negative for: dysuria, frequent urination, hematuria and urinary tract infection. Endocrine: Negative for: diabetes mellitus, hyperthyroidism and hypothyroidism. Hematology: Negative for: anemia, bruises/bleeds easily, factor V Leiden, hemophilia, thrombocytopenia and von Willebrand disease. Oncology: No history of CA metastasis, chemo within 30 days, or radiotherapy within 90 days. No history of oncological symptoms or problems. Psych: Positive for: anxiety, bipolar disorder and depression. Musculoskeletal: See HPI. Skin: Negative for lesions, rash and itching. PAST MEDICAL HISTORY Diagnosis Date Anxiety Dr. Belle Arthritis of both hips Benign neoplasm of colon Bipolar disorder (HCC) Dr. Belle DDD (degenerative disc disease), lumbar Depressive disorder, not elsewhere classified Diverticulosis of colon (without mention of hemorrhage) HLD (hyperlipidemia) 06/13/2017 Hypertension Internal hemorrhoids without mention of complication Monoclonal paraproteinemia Morbid obesity (HCC) MARCELINA (obstructive sleep apnea) 1997 BiPAP Peripheral neuropathy Prediabetes 09/11/2019 Seasonal allergies Shoulder arthritis Systemic lupus erythematosus (HCC) 10/2021 PAST SURGICAL HISTORY Procedure Laterality Date ARTHROPLASTY TOTAL SHOULDER 04/03/2013 Right shoulder replacement ARTHRP ACETBLR/PROX FEM PROSTC AGRFT/ALGRFT 1992 Hip replacement, total RIGHT BACK SURGERY HX COLONOSCOPY FLX DX W/COLLJ SPEC WHEN PFRMD 08/11/1992 Colonoscopy COLONOSCOPY FLX DX W/COLLJ SPEC WHEN PFRMD 09/01/2018 Colonoscopy COLSC FLX W/RMVL OF TUMOR POLYP LESION SNARE TQ 06/26/08 ESOPHAGOGASTRODUODENOSCOPY TRANSORAL DIAGNOSTIC 05/08/2020 EGD JOINT REPLACEMENT HX PAST SURGICAL HISTORY OF 1995 L5-S1 spinal fusion with pins, rods, and bolts PAST SURGICAL HISTORY OF 03/2011 Right hip revision PAST SURGICAL HISTORY OF 1970 right shoulder surgery PAST SURGICAL HISTORY OF Left 2018 shoulder replacement FAMILY HISTORY Problem Relation Age of Onset Cancer Mother skin Cancer Father KIDNEY other (Brain Tumor) Father Cancer Sister thyroid No Known Problems Brother Anesthesia Problems No Family History Social History Tobacco Use Smoking status: Former Packs/day: 1.00 Years: 10.00 Additional pack years: 0.00 Total pack years: 10.00 Types: Cigarettes Quit date: 10/27/1983 Years since quittin.2 Smokeless tobacco: Never Vaping Use Vaping Use: Never used Substance Use Topics Alcohol use: Yes Comment: very rarely Drug use: No Prior to Admission medications as of 01/20/24 0950 Medication Sig Last Dose Taking meloxicam (MOBIC) 15 mg tablet Take 1 tablet by mouth once daily. Taking Yes HYDROcodone-acetaminophen (NORCO) 5-325 mg per tablet Take 0.5 tablets by mouth every 8 hours as needed for pain. Taking Yes hydrOXYchloroQUINE (PLAQUENIL) 200 mg tablet Take 1 tablet by mouth two times a day. Taking Yes azelastine 0.1% nasal spray Use 1 [place] in each nostril two times a day. Taking Yes tamsulosin (FLOMAX) 0.4 mg Take 1 capsule by mouth daily at bedtime. Taking Yes pregabalin (LYRICA) 225 mg capsule Take 1 capsule by mouth two times a day for 90 days. Taking Yes fluticasone (FLONASE) 50 mcg/actuation nasal spray USE 2 SPRAYS IN EACH NOSTRIL ONCE DAILY Taking Yes amLODIPine (NORVASC) 5 mg tablet Take 1 tablet by mouth once daily. Taking Yes metoprolol succinate ER (TOPROL XL) 25 mg 24 hr tablet Take 2 tablets by mouth once daily. Taking Yes guaiFENesin (MUCINEX) 600 mg 12 hr tablet Take 1,200 mg by mouth twice daily as needed for cold/allergy symptoms. Taking Yes fish oil/borage/flax/om3,6,9 1 (OMEGA 3-6-9 ORAL) Take by mouth. Taking Yes fexofenadine (ANÍBAL) 180 mg tablet TAKE 1 TABLET DAILY Taking Yes alpha lipoic acid (LIPOIC ACID ORAL) Take by mouth. Taking Yes ZINC ORAL Take by mouth. Taking Yes LYSINE ORAL Take by mouth. Taking Yes CPAP Continue BiPAP with new settings: @ 14/8 cm of water with humidification. No new equipment is needed. Taking Yes aspirin, enteric coated (ASPIRIN, ENTERIC COATED) 81 mg EC tablet Take 81 mg by mouth once daily. Taking Yes IRON, FERROUS SULFATE, ORAL Take by mouth once daily. Taking Yes ASCORBIC ACID (VITAMIN C ORAL) Take by mouth once daily. Taking Yes buPROPion (WELLBUTRIN) 75 mg tablet Take 150 mg by mouth twice daily. Taking Yes famotidine (PEPCID) 20 mg tablet Take 1 tablet by mouth twice daily. CPAP/BIPAP/OTHER Type .CPAPSettings into a note to see current settings/supplies/DME information. Patient not taking: Reported on 01/20/2024 Not Taking CPAP/BIPAP/OTHER Type .CPAPSettings into a note to see current settings/supplies/DME information. Patient not taking: Reported on 01/20/2024 Not Taking No medication comments found. ALLERGIES Allergen Reactions Aspartame Swelling Pt gets burning sensation under skin Betadine [Povidone-* Rash Blister Cymbalta [Duloxetin* Other: See Comments Sweating Lisinopril Cough Cough Losartan Cough Niacin Other: See Comments Niacin-Dermid Burning pain all over Penicillins Rash Seasonal Allergies Other: See Comments GRASS POLLEN-positive skin test 09-05-13 Sudafed [Pseudoephe* Other: See Comments Difficulty swallowing, swelling of tongue & lips Tamiflu [Oseltamivi* Shortness of Breath SOB, arm pain Trazodone Shortness of Breath Ultram [Tramadol] Per patient contraindication due to wellbutrin Objective PHYSICAL EXAM: General: alert and oriented and healthy appearance. Pertinent negatives noted - not distressed. Skin: normal color, no rash or lesions. HEENT: EOM intact, pupils equal round and pupils reactive to light. Pertinent negatives noted - no carotid bruit. Cardiovascular: regular rate and rhythm, normal S1 and S2, no rub, murmurs, or gallop. No radial pulse abnormalities. Respiratory: normal breath sounds, no wheezes or crackles. No chest wall deformity or tenderness. Abdomen: bowel sounds present and soft. Pertinent negatives noted - not tender. Extremities: Positive for joint tenderness. Pertinent negatives noted - no cellulitis, no clubbing, no deformity, no edema, no joint swelling, no abnormal pulses, no ulcer, no vascular insufficiency and no varicose veins. Neurological: normal cognition and motor skills. Gait normal. No weakness or sensory deficit. PAIN ASSESSMENT: Pain Pain Level: 6 Pain Location: Wrist-Left Description: Sharp, Stabbing, Numbness, Tingling Duration Amount of Time: 2 Duration Units: Years Frequency: Intermittent Intervention/Comfort measure: Medication VITALS: BP 128/74 Pulse 68 Temp (Src) 96.9 (Temporal) Resp 16 Ht 5' 8 (1.73m) Wt 281 lb (127.5kg) SpO2 93% BMI 42.74 kg/(m^2). Diagnostic tests reviewed for today's visit: Lab Value Units Date High Low HB No results within date range. HCT No results within date range. WBC No results within date range. PLT No results within date range. NA No results within date range. K No results within date range. GLUC No results within date range. BUN No results within date range. CREAT No results within date range. PTSEC No results within date range. INR No results within date range. APTT No results within date range. ALT No results within date range. AST No results within date range. TBILI No results within date range. TSH No results within date range. Lab Value Units Date High Low HCGQT No results within date range. UHCG No results within date range. HCG, BODY* No results within date range. Lab Value Units Date High Low ABORHD No results within date range. ABSCREEN No results within date range. Hemoglobin A1C (%) Date Value 02/08/2023 5.6 02/07/2021 5.9 03/25/2020 5.7 09/08/2019 6.1 07/07/2017 5.5 12/19/2013 5.9 Hemoglobin A1C (POCT) (%) Date Value 05/06/2021 5.8 No results found for this or any previous visit (from the past 8760 hour(s)). Recent Results (from the past 85021 hour(s)) ECHO Collection Time: 10/07/22 2:44 PM Impression CONCLUSIONS: - Technically difficult exam due to body habitus. - Exam indication: Shortness of Breath - The left ventricle is normal in size. Left ventricular systolic function is normal. EF = 62 5% (2D 4-ch.) Grade I left ventricular diastolic dysfunction. - The right ventricle is normal in size. Right ventricular systolic function is normal. - There are no significant valvular abnormalities. - Definity unavailable. - The patient has not had a prior [facility] echocardiographic exam for comparison. * * * Final * * * Assessment Patient has the following medical conditions which may affect daniella-operative course: Essential hypertension, benign Assessment: Follows with PCP , adherent to RX. In office today BP: 128/74 HLD (hyperlipidemia) Assessment: Follows with PCP. Currently on fish oil. Grade I diastolic dysfunction Assessment: Follows PCP. Adherent to medications. Appears euvolemic, denies new or worsening cardiac symptoms. Ejection Fraction - Result: 62 % Date: 10/07/2022 Time: 14:44:54 Obstructive sleep apnea on CPAP Assessment: MARCELINA on CPAP, adherent to CPAP use. GERD without esophagitis Assessment: Denies recent symptoms. Takes pepcid PRN. BPH with obstruction/lower urinary tract symptoms Assessment: Denies symptoms. On flomax. Systemic lupus erythematosus (HCC) Assessment: Follows with rheum (Dr. Bunyard). Stable on daily hydroxychloroquine and pregabalin. Major depression, recurrent, chronic (HCC) Assessment: On rx, stable per pt. Prediabetes Assessment: Follows with PCP, not currently on rx. Hemoglobin A1C (%) Date Value 02/08/2023 5.6 02/07/2021 5.9 Hemoglobin A1C (POCT) (%) Date Value 05/06/2021 5.8 Morbid obesity with body mass index (BMI) of 40.0 to 44.9 in adult (HCC) Assessment: Body mass index is 42.73 kg/m . Avina Activity Status Index: METS: Do moderate work around the house, such as vacuuming, sweeping floors, or carrying in groceries (3.50 METs) Climb a flight of stairs or walk up a hill (5.50 METs) DASI Score: 9 Patient denies any chest pain or undue shortness of breath with the above physical activity. Clinical Frailty Scale: 3. Well, with treated comorbid disease STOP-Bang Score: STOP-Bang Score: (MARCELINA on CPAP) [id number] Score: Age: >=75 Sex: male CHF history: No Hypertension history: Yes Stroke/TIA/thromboembolism history: No Vascular disease history: No Diabetes history: No [id number] Score: 3 ANESTHESIA FINDINGS: Intubation History: No history of difficult intubation. No abnormal airway history Significant Anesthesia Considerations: none Airway History: No history of difficult airway No abnormal airway history I - PHYSICAL EVALUATION AIRWAY Patient intubated: No. Tracheostomy tube not present Mallampati: IV. TM distance: >3 FB. Neck ROM: full ROM without neurological symptoms. Mouth opening: adequate. Short neck: no. Thick neck: no Travis present: yes Lip Bite Test: I Microretrognathia/Micronagthia/Recesse d Chin: No DENTAL Additional comments: + crowns. II - ANESTHESIA PLAN Anesthetic Plan: other Anesthetic plan additional comments: *PACC/TCI - anesthesia choice. Beta Tonya Monitoring Plan Post Procedure Analgesic Plan Prepared for Surgery: optimally prepared for surgery. CONSULTS: Patient does not require consults for optimization at this time Planned Anesthetic: other anesthesia choice The Following Tests/Procedures Have Been Initiated: No orders of the defined types were placed in this encounter. Instructions Given to Patient: Instructions located in the after visit summary. Patient given verbal and written preop instructions and voices comprehension and compliance. SIGNATURE: Divine Spears PA-C PATIENT NAME: Zayda De La Vega DATE: 01/20/2024 TIME: 9:50 AM PAGER/CONTACT #: documented in this encounter [facility] 01-19-2024 Miscellaneous Notes The following approved medication requests have been transmitted electronically. Requested Prescriptions Signed Prescriptions Disp Refills meloxicam (MOBIC) 15 mg tablet 90 tablet 1 Sig: Take 1 tablet by mouth once daily. Authorizing Provider: EDINSON ZARATE MD Pharmacy Information [place] [address] The following approved medication requests have been transmitted electronically. Requested Prescriptions Signed Prescriptions Disp Refills meloxicam (MOBIC) 15 mg tablet 90 tablet 1 Sig: Take 1 tablet by mouth once daily. Authorizing Provider: EDINSON ZARATE MD New pharmacy Pharmacy verified in Epic Patient has been identified by name and date of : Yes Patient aware RX will be sent to pharmacy. No need to notify patient. Pharmacy phones for refill(s): Requested Prescriptions Pending Prescriptions Disp Refills meloxicam (MOBIC) 15 mg tablet 90 tablet 3 Sig: Take 1 tablet by mouth once daily. Date of last office visit : 09/08/2023 Date of next office visit : 02/13/2024 Last 2 Encounter Wt Readings: Date: Wt: 09/08/2023 131.1 kg (289 lb) 08/22/2023 131.3 kg (289 lb 6.4 oz) Not applicable Please advise. Gricelda Lloyd LPN documented in this encounter [facility] 01-19-2024 Miscellaneous Notes Surgery has been scheduled as requested. Post op appointments have been scheduled and mailed to the patient. Surgical request completed for revision left CTR with nerve wrap at [facility] on 01/25/2024. Axogen nerve wrap requested. documented in this encounter [facility] 01-16-2024 History of Present illness Narrative Yoni Peng MD Department of Orthopaedics Orthopaedics [address] [place] [id number] Dept: [phone] Dept January 16, 2024 CHIEF COMPLAINT: Established Patient and Follow Up of the Left Hand and Established Patient and Follow Up of the Right Hand HPI Patient here today approximately 5 1/2 months post visit bilateral hand numbness. He would like to discuss results of testing. EMG completed on 08/19/2023 and ultrasounds on bilateral wrists completed 10/10/2023. ASSESSMENT: G56.03 Bilateral carpal tunnel syndrome (primary encounter diagnosis) PLAN: Nerve test suggests severe, recurrent carpal tunnel. I discussed with him indications for revision carpal tunnel surgery. He would like to pursue surgery after discussing the risks, benefits, alternatives and potential complications. Will do a nerve wrap. Will send off synovium. OBJECTIVE: Mr. Zayda De La Vega is a pleasant 73 year old in no apparent distress. Gen:There were no vitals taken for this visit. nl development, obese, no deformities ENT: Normocephalic, normal hearing, moist mucosa CV: Pulses:Radial= 2+ and symmetric, capillary refill < 2 secs, no peripheral edema/varicosities Skin: no rash, bruising or lesions. Good turgor. Psych: cooperative and appropriate, alert and oriented x 3, good mood and affect. Musculoskeletal: Exam remained stable from prior visit with diminished light touch sensation in the median nerve distribution. Prior surgical scars noted. Weakness with thumb adduction. Mild atrophy noted in both thumbs. Imaging: Study Interpretation: Extensive electrodiagnostic examination of right upper extremity and additional nerve conduction studies and needle exam of left upper extremity reveals changes most consistent with the followin.Bilateral median neuropathies at or distal to the wrists, consistent with a clinical diagnosis of carpal tunnel syndrome, severe in degree electrically, and worse on the right. Chronic motor axonal loss changes are present in the bilateral abductor pollicis brevis without acute axonal loss. 2. The needle exam is somewhat hampered by incomplete motor units evaluation due to poor muscle activation in most of the muscles due to discomfort. However, no definitive evidence of a C5-C8 cervical motor radiculopathy. 3. Normal ulnar nerve conduction studies on the right Supporting Subjective Information Below: Past Surgical History: PAST SURGICAL HISTORY Procedure Laterality Date ARTHROPLASTY TOTAL SHOULDER 04/03/2013 Right shoulder replacement ARTHRP ACETBLR/PROX FEM PROSTC AGRFT/ALGRFT 1992 Hip replacement, total RIGHT BACK SURGERY HX COLONOSCOPY FLX DX W/COLLJ SPEC WHEN PFRMD 08/11/1992 Colonoscopy COLONOSCOPY FLX DX W/COLLJ SPEC WHEN PFRMD 09/01/2018 Colonoscopy COLSC FLX W/RMVL OF TUMOR POLYP LESION SNARE TQ 06/26/08 ESOPHAGOGASTRODUODENOSCOPY TRANSORAL DIAGNOSTIC 05/08/2020 EGD JOINT REPLACEMENT HX PAST SURGICAL HISTORY OF 1995 L5-S1 spinal fusion with pins, rods, and bolts PAST SURGICAL HISTORY OF 03/2011 Right hip revision PAST SURGICAL HISTORY OF 1970 right shoulder surgery PAST SURGICAL HISTORY OF Left 2018 shoulder replacement Medications: Current Outpatient Medications Medication Sig HYDROcodone-acetaminophen (NORCO) 5-325 mg per tablet Take 0.5 tablets by mouth every 8 hours as needed for pain. hydrOXYchloroQUINE (PLAQUENIL) 200 mg tablet Take 1 tablet by mouth two times a day. azelastine 0.1% nasal spray Use 1 [place] in each nostril two times a day. tamsulosin (FLOMAX) 0.4 mg Take 1 capsule by mouth daily at bedtime. pregabalin (LYRICA) 225 mg capsule Take 1 capsule by mouth two times a day for 90 days. meloxicam (MOBIC) 15 mg tablet TAKE ONE-HALF (1/2) TO ONE TABLET DAILY fluticasone (FLONASE) 50 mcg/actuation nasal spray USE 2 SPRAYS IN EACH NOSTRIL ONCE DAILY amLODIPine (NORVASC) 5 mg tablet Take 1 tablet by mouth once daily. metoprolol succinate ER (TOPROL XL) 25 mg 24 hr tablet Take 2 tablets by mouth once daily. guaiFENesin (MUCINEX) 600 mg 12 hr tablet Take 1,200 mg by mouth twice daily as needed for cold/allergy symptoms. fish oil/borage/flax/om3,6,9 1 (OMEGA 3-6-9 ORAL) Take by mouth. fexofenadine (ANÍBAL) 180 mg tablet TAKE 1 TABLET DAILY alpha lipoic acid (LIPOIC ACID ORAL) Take by mouth. ZINC ORAL Take by mouth. LYSINE ORAL Take by mouth. aspirin, enteric coated (ASPIRIN, ENTERIC COATED) 81 mg EC tablet Take 81 mg by mouth once daily. IRON, FERROUS SULFATE, ORAL Take by mouth once daily. ASCORBIC ACID (VITAMIN C ORAL) Take by mouth once daily. buPROPion (WELLBUTRIN) 75 mg tablet Take 150 mg by mouth twice daily. famotidine (PEPCID) 20 mg tablet Take 1 tablet by mouth twice daily. CPAP/BIPAP/OTHER Type .CPAPSettings into a note to see current settings/supplies/DME information. CPAP/BIPAP/OTHER Type .CPAPSettings into a note to see current settings/supplies/DME information. CPAP Continue BiPAP with new settings: @ 14/8 cm of water with humidification. No new equipment is needed. No current facility-administered medications for this visit. Allergies: Aspartame, Betadine [Povidone-Iodine], Cymbalta [Duloxetine], Lisinopril, Losartan, Niacin, Penicillins, Seasonal Allergies, Sudafed [Pseudoephedrine Hcl], Tamiflu [Oseltamivir Phosphate], Trazodone, and Ultram [Tramadol] ROS: General (negative for fatigue, malaise, weight loss/gain) HEENT (negative for headache, earache, recent vision changes, sinus pain, sore throat) Respiratory (no recent shortness of breath, hemoptysis) CV (negative for chest tightness, palpitations) Musculoskeletal (see HPI) Psych (no depression, anxiety) Yoni Peng MD documented in this encounter [facility] 01-10-2024 Miscellaneous Notes The following approved medication requests have been transmitted electronically. Requested Prescriptions Signed Prescriptions Disp Refills hydrOXYchloroQUINE (PLAQUENIL) 200 mg tablet 180 tablet 1 Sig: Take 1 tablet by mouth two times a day. Authorizing Provider: EDINSON ZARATE MD Pharmacy verified in [facility] Patient has been identified by name and date of : Yes Patient aware RX will be sent to pharmacy. No need to notify patient. Patient phones for refill(s): Requested Prescriptions Pending Prescriptions Disp Refills hydrOXYchloroQUINE (PLAQUENIL) 200 mg tablet 180 tablet 1 Sig: Take 1 tablet by mouth two times a day. Date of last office visit : 09/08/2023 Date of next office visit : 02/13/2024 Last 2 Encounter Wt Readings: Date: Wt: 09/08/2023 131.1 kg (289 lb) 08/22/2023 131.3 kg (289 lb 6.4 oz) Not applicable Please advise. Sienna Inman LPN documented in this encounter [facility] 2023 History of Present illness Narrative POPULATION HEALTH NAVIGATION OUTREACH Action/FYI [employer] HCCs 2.16.24 Discuss/Due for: Medicare Wellness Hgb a1c previously ordered Outcome: 1st attempt - Left Message 2nd attempt - MyChart message sent Reason for Outreach Care Gap/HCC or Scheduling Wellness Visits Care Gaps due: Medicare Annual Wellness Visit Patient Contacted: Unable or unnecessary to reach patient: Left message MyChart message sent HCC related Navigation Signature: Nidhi Casey MA 2023 12:34 PM documented in this encounter [facility] 11-30-2023 History of Present illness Narrative POPULATION HEALTH NAVIGATION OUTREACH Action/FYI HCC gaps Patient is on HCC list for annual wellness appt. Outcome- lvm/sent mychart to schedule medicare wellness with pcp. Last pcp visit- 11-26-23 virtual visit No future appt scheduled- due for medicare wellness Also due/discuss A1c- ordered Patient Identified by Name and : NO Outreach Outcome/Action Unable to reach patient: Left message MyChart message sent Did you use a PCP flex slot to schedule this appointment? N/A Reason for Outreach HCC or suspected condition Payer: Payor: [employer] MEDICARE / Plan: [employer] MEDICARE PPO / Product Type: PPO / Care Gap Reviewed:: Annual Wellness visit HBA1C Reminder: Reminder note to check Health Maintenance for items below Health Maintenance items due: BP Controlled (<130/80) due on 05/20/2023 Covid-19 Vaccine() due on 06/03/2023 Advance Directive Discussion due on 10/03/2023 Navigation Signature: Gricelda Trinidad [facility] Health Navigator November 30, 2023 3:18 PM documented in this encounter [facility] 11-24-2023 History of Present illness Narrative This Team Access Model visit is a virtual encounter. It required patient-provider interaction for the medical decision making as documented below. The patient consented to proceed by video before initiating the encounter. DISTANCE HEALTH VISIT Zayda De La Vega is a 72 year old male seen for medication review. - Patient is currently in [place], plans to be back in [place] at the beginning of January. - Put in a request for norco refill - States that nurse told him it was inappropriate to be taking this everyday and to contact PCP - Notes that he usually takes 4 half tablets of 10 mg - Is in pain everyday from lupus/arthritis - Reports that lupus causes diffuse skin pain. He also endorses tendon pain. Has arthritis involving the hands, ankles and feet - Endorses numbness of the fingers HISTORY REVIEWED (electronic chart updated): - medical history - medications - allergies REVIEW OF SYSTEMS: General: Feels well, no weight changes, fever, chills. HEENT: No sinus congestion, earache, sore throat. Cardiac: No chest pain, palpitations Resp: No cough, wheeze, shortness of breath GI: No reflux symptoms, food intolerance, bowel changes. : No urinary frequency, dysuria. MS: +arthritis of the hands, ankles, feet +numbness of fingers PHYSICAL EXAMINATION: VIDEO EXAM: performed via video enabled technology GENERAL: alert and appropriate, in no distress, well-hydrated, well nourished, and interactive. No physical exam performed today (phone encounter). Data Reviewed: Component Latest Ref Rng & Units 02/08/2023 WBC 3.70 - 11.00 k/uL 8.37 RBC 4.20 - 6.00 m/uL 4.20 Hemoglobin 13.0 - 17.0 g/dL 12.8 (L) Hematocrit 39.0 - 51.0 % 39.2 MCV 80.0 - 100.0 fL 93.3 MCH 26.0 - 34.0 pg 30.5 MCHC 30.5 - 36.0 g/dL 32.7 RDW-CV 11.5 - 15.0 % 14.3 Platelet Count 150 - 400 k/uL 281 MPV 9.0 - 12.7 fL 9.1 Neut% % 51.0 Abs Neut (ANC) 1.45 - 7.50 k/uL 4.27 Lymph% % 34.6 Abs Lymph 1.00 - 4.00 k/uL 2.90 [place]% % 9.[address] [place] [place] <0.87 k/uL 0.82 Eosin% % 2.9 Abs Eosin <0.46 k/uL 0.24 Baso% % 0.6 Abs Baso <0.11 k/uL 0.05 Immature Gran % % 1.1 IMMATURE GRANS (ABS) <0.10 k/uL 0.09 NRBC /100 WBC 0.0 Absolute nRBC <0.01 k/uL <0.01 DTYPE Auto Protein, Total 6.3 - 8.0 g/dL 7.3 Albumin 3.9 - 4.9 g/dL 4.4 Calcium 8.5 - 10.2 mg/dL 9.8 Bilirubin, Total 0.2 - 1.3 mg/dL 0.3 Alkaline Phosphatase 38 - 113 U/L 56 AST 14 - 40 U/L 17 ALT 10 - 54 U/L 20 Glucose 74 - 99 mg/dL 107 (H) BUN 9 - 24 mg/dL 20 Creatinine 0.73 - 1.22 mg/dL 0.84 Sodium 136 - 144 mmol/L 134 (L) Potassium 3.7 - 5.1 mmol/L 4.5 Chloride 97 - 105 mmol/L 101 CO2 22 - 30 mmol/L 23 Anion Gap 9 - 18 mmol/L 10 eGFR >=60 mL/min/1.73m 92 Component Latest Ref Rng & Units 02/08/2023 Cholesterol, Total <200 mg/dL 157 Triglyceride <150 mg/dL 234 (H) HDL Cholesterol >39 mg/dL 32 (L) Non HDL Cholesterol <130 mg/dL 125 Fasting Time hrs 11 VLDL Cholesterol <30 mg/dL 47 (H) TC:HDL Ratio <5.10 4.91 LDL Cholesterol <100 mg/dL 78 LDL:HDL Ratio <2.54 2.44 Hemoglobin A1C 4.3 - 5.6 % 5.6 Estimated Average Glucose mg/dL 114 ASSESSMENT/PLAN: This encounter occurred by zoom over the course of 19 minutes. (G89.4) Chronic pain syndrome (primary encounter diagnosis) (M32.9) Systemic lupus erythematosus, unspecified SLE type, unspecified organ involvement status (HCC) (R20.0, R20.2) Numbness and tingling of foot (M19.019) Glenohumeral arthritis Comment: Has been taking 4 half tablets of norco 10 mg. Discussed that chronic use of this medication is not an appropriate treatment plan. He is willing to consult with pain recovery clinic. Plan: CONSULT TO [facility] (CH[facility] PAIN) Requested Prescriptions No prescriptions requested or ordered in this encounter RTO: as needed Scribe Attestation: By signing my name below, I, Je Cunha, attest that this documentation has been prepared under the direction and in the presence of Alex Zarate M.D.. Electronically Signed: Celsa Valencia. November 24, 2023 9:38 AM. This telehealth encounter is provided under a state of emergency due to COVID19 and is for care for condition where providing the care is supportive of minimizing potential exposure and/or transmission of COVID19. Provider Attestation: I, Edinson Zarate MD, personally performed the services described in this documentation. All medical record entries made by the scribe were at my direction and in my presence. I have reviewed the chart and discharge instructions (if applicable), and agree that the record reflects my personal performance and is accurate and complete. Electronically Signed: Edinson Zarate MD November 24, 2023 4:09 PM documented in this encounter [facility] 11-22-2023 Miscellaneous Notes Called pt. States he can't come in for appt as he is in [place]. Able to do VV. Assisted with scheduling. No further questions. Patient stated he got the vm that was left, but would like to speak with a nurse. Please call back at [phone]. Patient returned call at 10:07 to . Called him back, no answer. Left detailed message on identified VM advising him to schedule OV. Did include PCP's entire message below. Trisha Slaughter RN Called patient. Spouse answered, states patient is unavailable. Spouse states she will give message to patient to return call to office for message from provider. Youir use of the med has escalated a fair bit over past few months. Come in for appointment to discuss. This med is not suitable for daily use. Edinson Zarate MD Pharmacy verified in [facility] Patient has been identified by name and date of : Yes Patient aware RX will be sent to pharmacy. No need to notify patient. Patient phones for refill(s): Requested Prescriptions Pending Prescriptions Disp Refills HYDROcodone-acetaminophen (NORCO) 5-325 mg per tablet 90 tablet 0 Sig: Take 1 tablet by mouth every 8 hours as needed for pain for up to 30 days. Date of last office visit : 09-08-23 Date of next office visit : not found Last 2 Encounter Wt Readings: Date: Wt: 09/08/2023 131.1 kg (289 lb) 08/22/2023 131.3 kg (289 lb 6.4 oz) Please advise. Alice Payne Ma documented in this encounter [facility] 11-07-2023 Miscellaneous Notes Pharmacy verified in [facility]. Patient has been identified by name and date of : Yes Patient aware RX will be sent to pharmacy. No need to notify patient. Patient phones for refill(s): Requested Prescriptions Pending Prescriptions Disp Refills azelastine 0.1% nasal spray 30 mL 6 Si [place] two times a day. Date of last office visit : 09/08/2023 Date of next office visit : 11/04/2023 Last 2 Encounter Wt Readings: Date: Wt: 09/08/2023 131.1 kg (289 lb) 08/22/2023 131.3 kg (289 lb 6.4 oz) Not applicable Please advise. Lynsey Townsend MA documented in this encounter [facility] 08-22-2023 Miscellaneous Notes PT rescheduled for MSK US on 10/10/23 at 1 pm at [facility]. Visit Type: US MSK1x2 Visit Length: 120 MINUTES Order Name/Protocol: US WRIST RT+LT; VOLAR+CARPAL TUNNEL. HX OF BILATERAL CTR Preferred Provider: N/A Comment: N/A Location: [facility] Slot held: N/A documented in this encounter [facility] 08-22-2023 History of Present illness Narrative Images from the original note were not included. Subjective HPI Nontoxic-appearing male presents urgent care chief complaint infection right index finger. Duration of symptoms 5 days. Associated symptoms pain right cuticle fold second digit right hand. Patient states has noticed increased pain and swelling to this area. Has not tried any OTC medications. No known trauma. History of hand surgeries. Denies any fever body aches chills nausea vomiting abdominal pain numbness or tingling that is new to the digit. Past medical history prescription medication use allergies reviewed. .Patient presents with: Derm Problem: R hand index finger infection x5 days PAST MEDICAL HISTORY Diagnosis Date Anxiety Dr. Belle Arthritis of both hips Benign neoplasm of colon Bipolar disorder (HCC) Dr. Belle DDD (degenerative disc disease), lumbar Depressive disorder, not elsewhere classified Diverticulosis of colon (without mention of hemorrhage) HLD (hyperlipidemia) 06/13/2017 Hypertension Internal hemorrhoids without mention of complication Monoclonal paraproteinemia Morbid obesity (HCC) MARCELINA (obstructive sleep apnea) 1998 BiPAP Peripheral neuropathy Prediabetes 09/11/2019 Seasonal allergies Shoulder arthritis Systemic lupus erythematosus (HCC) 10/2021 PAST SURGICAL HISTORY Procedure Laterality Date ARTHROPLASTY TOTAL SHOULDER 04/03/2013 Right shoulder replacement ARTHRP ACETBLR/PROX FEM PROSTC AGRFT/ALGRFT 1992 Hip replacement, total RIGHT BACK SURGERY HX COLONOSCOPY FLX DX W/COLLJ SPEC WHEN PFRMD 08/11/1992 Colonoscopy COLONOSCOPY FLX DX W/COLLJ SPEC WHEN PFRMD 09/01/2018 Colonoscopy COLSC FLX W/RMVL OF TUMOR POLYP LESION SNARE TQ 06/26/08 ESOPHAGOGASTRODUODENOSCOPY TRANSORAL DIAGNOSTIC 05/08/2020 EGD JOINT REPLACEMENT HX PAST SURGICAL HISTORY OF 1995 L5-S1 spinal fusion with pins, rods, and bolts PAST SURGICAL HISTORY OF 03/2011 Right hip revision PAST SURGICAL HISTORY OF 1970 right shoulder surgery PAST SURGICAL HISTORY OF Left 2018 shoulder replacement ALLERGIES Aspartame, Betadine [Povidone-Iodine], Lisinopril, Losartan, Niacin, Penicillins, Seasonal Allergies, Sudafed [Pseudoephedrine Hcl], Tamiflu [Oseltamivir Phosphate], Trazodone, and Ultram [Tramadol] MEDICATIONS HYDROcodone-Acetaminophen (NORCO) 10-325 mg per tablet^Take 0.5-1 tablets by mouth every 8 hours as needed for pain.^Disp: 60 tablet^Rfl: 0 nystatin (NYSTOP) powder^Apply 1 application to affected area four times daily.^Disp: 60 g^Rfl: 2 pregabalin (LYRICA) 225 mg capsule^Take 1 capsule by mouth two times a day for 90 days.^Disp: 180 capsule^Rfl: 0 azelastine 0.1% nasal spray^USE 1 SPRAY IN EACH NOSTRIL TWICE A DAY^Disp: 30 mL^Rfl: 6 amLODIPine (NORVASC) 5 mg tablet^Take 1 tablet by mouth once daily.^Disp: 90 tablet^Rfl: 3 metoprolol succinate ER (TOPROL XL) 25 mg 24 hr tablet^Take 2 tablets by mouth once daily.^Disp: 180 tablet^Rfl: 3 famotidine (PEPCID) 20 mg tablet^Take 1 tablet by mouth twice daily.^Disp: 180 tablet^Rfl: 3 tamsulosin (FLOMAX) 0.4 mg^Take 1 capsule by mouth daily at bedtime.^Disp: 90 capsule^Rfl: 1 CHLORPHENIRAMINE-DEXTROMETHORP ORAL^Take by mouth.^Disp: ^Rfl: SAVELLA 12.5 mg tab^^Disp: ^Rfl: (Patient not taking: Reported on 08/02/2023) guaiFENesin (MUCINEX) 600 mg 12 hr tablet^Take 1,200 mg by mouth twice daily as needed for cold/allergy symptoms.^Disp: ^Rfl: red beet root-sour richardson ext 250-0.5 mg chew^Take by mouth.^Disp: ^Rfl: BARLEY, WHOLE GROUND^^Disp: ^Rfl: fish oil/borage/flax/om3,6,9 1 (OMEGA 3-6-9 ORAL)^Take by mouth.^Disp: ^Rfl: CPAP/BIPAP/OTHER^Type .CPAPSettings into a note to see current settings/supplies/DME information.^Disp: 1 Each^Rfl: 0 meloxicam (MOBIC) 15 mg tablet^Take 0.5-1 tablets by mouth once daily.^Disp: 90 tablet^Rfl: 2 hydrOXYchloroQUINE (PLAQUENIL) 200 mg tablet^Take 1 tablet by mouth twice daily.^Disp: 180 tablet^Rfl: 1 fexofenadine (ANÍBAL) 180 mg tablet^TAKE 1 TABLET DAILY^Disp: 90 tablet^Rfl: 3 fluticasone-salmeterol (ADVAIR DISKUS) 100-50 mcg/dose inhaler^Inhale 1 Puff as instructed twice daily.^Disp: 1 Each^Rfl: 5 CPAP/BIPAP/OTHER^Type .CPAPSettings into a note to see current settings/supplies/DME information.^Disp: 1 Each^Rfl: 0 alpha lipoic acid (LIPOIC ACID ORAL)^Take by mouth.^Disp: ^Rfl: ZINC ORAL^Take by mouth.^Disp: ^Rfl: LYSINE ORAL^Take by mouth.^Disp: ^Rfl: fluticasone (FLONASE) 50 mcg/actuation nasal spray^Use 2 Sprays in each nostril once daily.^Disp: 1 Each^Rfl: 5 CPAP^Continue BiPAP with new settings: @ 14/8 cm of water with humidification. No new equipment is needed.^Disp: 1 Device^Rfl: 0 aspirin, enteric coated (ASPIRIN, ENTERIC COATED) 81 mg EC tablet^Take 81 mg by mouth once daily.^Disp: ^Rfl: IRON, FERROUS SULFATE, ORAL^Take by mouth once daily.^Disp: ^Rfl: ASCORBIC ACID (VITAMIN C ORAL)^Take by mouth once daily.^Disp: ^Rfl: buPROPion (WELLBUTRIN) 75 mg tablet^Take 150 mg by mouth twice daily. ^Disp: ^Rfl: FAMILY HISTORY Problem Relation Age of Onset Cancer Mother skin Cancer Father KIDNEY other (Brain Tumor) Father Cancer Sister thyroid No Known Problems Brother Social History Tobacco Use Smoking status: Former Packs/day: 1.00 Years: 10.00 Additional pack years: 0.00 Total pack years: 10.00 Types: Cigarettes Quit date: 10/27/1983 Years since quittin.8 Smokeless tobacco: Never Vaping Use Vaping Use: Never used Substance Use Topics Alcohol use: Yes Comment: very rarely Drug use: No BP 167/82 Pulse 72 Temp 36.9 C (98.4 F) Resp 18 Wt 131.3 kg (289 lb 6.4 oz) SpO2 95% BMI 44.32 kg/m Review of Systems Constitutional: Negative for chills, fever and malaise/fatigue. HENT: Negative for congestion, ear discharge, ear pain, sinus pain and sore throat. Eyes: Negative for blurred vision, pain, discharge and redness. Respiratory: Negative for cough, hemoptysis, sputum production, shortness of breath, wheezing and stridor. Cardiovascular: Negative for chest pain. Gastrointestinal: Negative for abdominal pain, diarrhea, nausea and vomiting. Musculoskeletal: Negative for joint pain and myalgias. Skin: Negative for itching and rash. Neurological: Negative for dizziness and headaches. Objective Physical Exam Constitutional: General: He is not in acute distress. Appearance: He is not toxic-appearing. HENT: Head: Normocephalic. Nose: Nose normal. Eyes: Pupils: Pupils are equal, round, and reactive to light. Cardiovascular: Rate and Rhythm: Normal rate. Pulmonary: Effort: Pulmonary effort is normal. No respiratory distress. Musculoskeletal: Hands: Cervical back: Normal range of motion. Comments: Edema and fluctuance noted to highlighted area. Neurovascular intact. No pain with palpation over PIP joint or palmar aspect of digit. Skin: General: Skin is warm and dry. Neurological: General: No focal deficit present. Mental Status: He is alert. Area cleansed with alcohol prep. 18-gauge needle used to deroofed and expressed purulent drainage. Wound culture obtained. ASSESSMENT/PLAN: 1. Paronychia of finger of right hand - ICD9: 681.02, ICD10: L03.011 - ABSCESS AND WOUND CULTURE WITH GRAM STAIN Diagnosed with paronychia. Placed on doxycycline and will use mupirocin as well. Encouraged to do warm soaks. Red flags prompt reevaluation discussed. Wound culture obtained. Treat accordingly culture results. Patient was educated on supportive therapies. Patient will follow up with primary care provider as needed. Patient was instructed to immediately proceed to emergency room for any new, worsening, or symptoms lasting longer than anticipated. The patient's clinical presentation is otherwise unremarkable at this time. Based on exam and clinical finding, the patient is stable for discharge. Plan of care was discussed with patient. Patient verbalizes understanding and agrees to plan of care. This note was generated using Dragon software. It may contain errors in wording, punctuation, or spelling. Alex White APRN.EDOUARD documented in this encounter [facility] 08-19-2023 History of Present illness Narrative UNIVERSAL PROTOCOL / SAFETY CHECKLIST Procedure to be Performed: EMG Sign In: A Moment of CARE was completed. Personnel directly involved with the procedure wore the appropriate PPE (Personal Protective Equipment). Patient/Surrogate Stated/Verified: PATIENT VERIFIED(optional for EMERGENT procedures): Patient name, Date of , Relevant allergies, and The intended procedure Time Out Communication: Intended patient and procedure match the source documents. Correct side/site marked and visible. Sign Out: Mil Escamilla MD SIGN OUT (optional for EMERGENT procedures): Post-procedure follow-up management communicated and Plan of Care Visit completed when applicable. RIKA Carrington MD documented in this encounter [facility] 08-19-2023 Miscellaneous Notes The following approved medication requests have been transmitted electronically. Requested Prescriptions Signed Prescriptions Disp Refills HYDROcodone-Acetaminophen (NORCO) 10-325 mg per tablet 60 tablet 0 Sig: Take 0.5-1 tablets by mouth every 8 hours as needed for pain. Authorizing Provider: EDINSON ZARATE MD Last appointment: 07/07/23 Next appointment: 09/14/23 Pharmacy verified in [facility]. Refill(s) requested: Requested Prescriptions Pending Prescriptions Disp Refills HYDROcodone-Acetaminophen (NORCO) 10-325 mg per tablet 60 tablet 0 Sig: Take 0.5-1 tablets by mouth every 8 hours as needed for pain. Order(s) pended. Please advise. Annita Norman LPN documented in this encounter [facility] 08-02-2023 Miscellaneous Notes PT scheduled for MSK US on 09/13/23 at 2 pm at [facility]. Called patient on 08/02/23 at 2:36 pm to schedule their MSK US exam. No answer, left VM. Patient called the MSK US Department back on 08/02/23 at 2:21 PM. Please give this patient a call back to ensure that they receive an appointment. Called patient on 08/02/23 at 2:04 PM to schedule their MSK US exam. No answer, left VM, 1st attempt. Visit Type: US MSK1x2 Visit Length: 120 MINUTES Order Name/Protocol: US WRIST RT+LT; VOLAR+CARPAL TUNNEL. HX OF CTR. Preferred Provider: N/A Comment: N/A Location: [facility] Slot held: N/A documented in this encounter [facility] 08-02-2023 History of Present illness Narrative Aruna Menard PA-C Department of Orthopaedics Orthopaedics [address] [address] Dept: [phone] August 02, 2023 CHIEF COMPLAINT: New, Pain, and Numbness of the Right Hand and Pain, Numbness, and New of the Left Hand Mr. Zayda De La Vega is a 72 year old male who presents with numbness and tingling in the radial 3 digits of both hands which has been bothering her for about the past 2-1/2 years. He gets burning sensations in the hands that is worse in the evening. Patient had bilateral carpal tunnel releases about 15 to 20 years ago, he did get improvement with his symptoms following the surgeries. He has a lupus, he is not told by multiple providers that the numbness and tingling in his hands is due to his lupus, he is a little hesitant to accept that diagnosis and is wondering if this may be due to his carpal tunnel syndrome. He also complains of pain in both of his thumbs, he tells me that he has osteoarthritis everywhere. He is already on an oral anti-inflammatory in addition to his methotrexate. ASSESSMENT: G56.03 Bilateral carpal tunnel syndrome (primary encounter diagnosis) R20.0 Bilateral hand numbness M32.9 Lupus (HCC) PLAN: We discussed getting a EMG for further evaluation and also ultrasounds of both of the wrists. We will contact the patient with his results. Mr. Zayda De La Vega was advised as to contrast therapies and/or to take analgesics/anti-inflammatories as needed and all contraindications were reviewed. OBJECTIVE: Mr. Zayda De La Vega is a pleasant 72 year old in no apparent distress. Gen:There were no vitals taken for this visit. nl development, obese, no deformities ENT: Normocephalic, normal hearing, moist mucosa CV: Pulses:Radial= 2+ and symmetric, capillary refill < 2 secs, no peripheral edema/varicosities Skin: no rash, bruising or lesions. Good turgor. Psych: cooperative and appropriate, alert and oriented x 3, good mood and affect. Musculoskeletal: Cervical spine has reduced range of motion and is without tenderness to palpation, Spurling's sign negative. Shoulders and elbows have active range of motion. negative Tinel's over the cubital tunnel bilaterally, no subluxation of ulnar nerve at the elbow with flexion of either elbow. negative Tinel's over Guyon's canal bilaterally. Inspection reveals mild thenar atrophy bilaterally. Decreased sensation to light touch in the radial 3 digits bilaterally. Sensation intact in the ulnar 2 digits with no intrinsic atrophy/weakness. negative Tinel's at the wrist, negative carpal tunnel compression testing bilaterally. Diffuse arthritis changes of the digits. No locking or catching of the digits. No tenderness to palpation or masses noted in the forearm or hand. Imaging: * * *Final Report* * * DATE OF EXAM: Aug 02 2023 8:57AM MDO [id number] - XR HAND 3V PA/LAT/OBL ANTOLIN / PROCEDURE REASON: multiple diagnoses * * * * Physician Interpretation * * * * All EXAM(s): XR HAND 3V PA/LAT/OBL ANTOLIN EXAM DATE/TIME: 08/02/2023 8:57 AM HISTORY: 72 years old Clinical information: Bilateral hand pain systemic lupus erythematosus and findings x-rays were and findings x-rays lupus TECHNIQUE: Images: XR HAND 3V PA/LAT/OBL ANTOLIN Comparison: None. RESULT: Findings: Bilateral findings: There is narrowing of all interphalangeal joints. There . is narrowing of the radiocarpal joints. Right :No fractures or dislocations are seen. Left :No fractures or dislocations are seen. IMPRESSION IMPRESSION: Findings as discussed under Results portion of report. Integration Lead: VINCENT Transcribe Date/Time: Aug 02 2023 9:39A Dictated by : JOANNE HIGHTOWER DO This examination was interpreted and the report reviewed and electronically signed by: JOANNE HIGHTOWER DO on Aug 02 2023 9:44AM EST Supporting Subjective Information Below: Past Surgical History: PAST SURGICAL HISTORY Procedure Laterality Date ARTHROPLASTY TOTAL SHOULDER 04/03/2013 Right shoulder replacement ARTHRP ACETBLR/PROX FEM PROSTC AGRFT/ALGRFT 1993 Hip replacement, total RIGHT BACK SURGERY HX COLONOSCOPY FLX DX W/COLLJ SPEC WHEN PFRMD 08/11/1992 Colonoscopy COLONOSCOPY FLX DX W/COLLJ SPEC WHEN PFRMD 09/01/2018 Colonoscopy COLSC FLX W/RMVL OF TUMOR POLYP LESION SNARE TQ 06/26/08 ESOPHAGOGASTRODUODENOSCOPY TRANSORAL DIAGNOSTIC 05/08/2020 EGD JOINT REPLACEMENT HX PAST SURGICAL HISTORY OF 1995 L5-S1 spinal fusion with pins, rods, and bolts PAST SURGICAL HISTORY OF 03/2011 Right hip revision PAST SURGICAL HISTORY OF 1970 right shoulder surgery PAST SURGICAL HISTORY OF Left 2018 shoulder replacement Medications: Current Outpatient Medications Medication Sig azelastine 0.1% nasal spray USE 1 SPRAY IN EACH NOSTRIL TWICE A DAY HYDROcodone-Acetaminophen (NORCO) 10-325 mg per tablet Take 0.5-1 tablets by mouth every 8 hours as needed for pain. amLODIPine (NORVASC) 5 mg tablet Take 1 tablet by mouth once daily. metoprolol succinate ER (TOPROL XL) 25 mg 24 hr tablet Take 2 tablets by mouth once daily. famotidine (PEPCID) 20 mg tablet Take 1 tablet by mouth twice daily. tamsulosin (FLOMAX) 0.4 mg Take 1 capsule by mouth daily at bedtime. CHLORPHENIRAMINE-DEXTROMETHORP ORAL Take by mouth. guaiFENesin (MUCINEX) 600 mg 12 hr tablet Take 1,200 mg by mouth twice daily as needed for cold/allergy symptoms. red beet root-sour richardson ext 250-0.5 mg chew Take by mouth. BARLEY, WHOLE GROUND fish oil/borage/flax/om3,6,9 1 (OMEGA 3-6-9 ORAL) Take by mouth. CPAP/BIPAP/OTHER Type .CPAPSettings into a note to see current settings/supplies/DME information. meloxicam (MOBIC) 15 mg tablet Take 0.5-1 tablets by mouth once daily. hydrOXYchloroQUINE (PLAQUENIL) 200 mg tablet Take 1 tablet by mouth twice daily. pregabalin (LYRICA) 225 mg capsule Take 1 capsule by mouth twice daily for 90 days. fexofenadine (ANÍBAL) 180 mg tablet TAKE 1 TABLET DAILY fluticasone-salmeterol (ADVAIR DISKUS) 100-50 mcg/dose inhaler Inhale 1 Puff as instructed twice daily. CPAP/BIPAP/OTHER Type .CPAPSettings into a note to see current settings/supplies/DME information. alpha lipoic acid (LIPOIC ACID ORAL) Take by mouth. ZINC ORAL Take by mouth. LYSINE ORAL Take by mouth. fluticasone (FLONASE) 50 mcg/actuation nasal spray Use 2 Sprays in each nostril once daily. CPAP Continue BiPAP with new settings: @ 14/8 cm of water with humidification. No new equipment is needed. aspirin, enteric coated (ASPIRIN, ENTERIC COATED) 81 mg EC tablet Take 81 mg by mouth once daily. IRON, FERROUS SULFATE, ORAL Take by mouth once daily. ASCORBIC ACID (VITAMIN C ORAL) Take by mouth once daily. buPROPion (WELLBUTRIN) 75 mg tablet Take 150 mg by mouth twice daily. SAVELLA 12.5 mg tab (Patient not taking: Reported on 08/02/2023) Current Facility-Administered Medications Medication Dose Route Frequency perflutren lipid microspheres 1.3 mL in NaCl (PF) 0.9% 10 mL injection (DEFINITY) INTRAVENOUS DIRECTED PRN sodium chloride 0.9 % (flush) 10 mL (BD POSIFLUSH) 10 mL INTRAVENOUS DIRECTED PRN Allergies: Aspartame, Betadine [Povidone-Iodine], Lisinopril, Losartan, Niacin, Penicillins, Seasonal Allergies, Sudafed [Pseudoephedrine Hcl], Tamiflu [Oseltamivir Phosphate], Trazodone, and Ultram [Tramadol] ROS: General (negative for fatigue, malaise, weight loss/gain) HEENT (negative for headache, earache, recent vision changes, sinus pain, sore throat) Respiratory (no recent shortness of breath, hemoptysis) CV (negative for chest tightness, palpitations) Musculoskeletal (see HPI) Psych (no depression, anxiety) This note was partially generated using Mimosa voice recognition system, and there may be some incorrect words, spellings, and punctuation that were not noted in checking the note before saving. Aruna Menard PA-C Order faxed to [facility] Scheduling. Referral done in computer. documented in this encounter [facility] 08-02-2023 History of Present illness Narrative Radiology Service Progress Note PATIENT NAME: Zayda De La Vega DATE OF SERVICE: August 02, 2023 TIME: 8:57 AM PATIENT IDENTITY VERIFICATION COMPLETED USING TWO (2) IDENTIFIERS: Name and Date of confirmed by patient verbally. FALL SCREENING: Has the patient had 2 falls in the last year or 1 fall with injury or currently using an Ambulatory Assistive Device (Walker, Cane, Wheelchair, Crutches, etc.)? No PATIENT GENDER DATA: Male PATIENT RELEVANT IMPLANT DATA REVIEWED: Not Applicable RADIOLOGY DEPARTMENT: General X-ray: Exam(s) Completed: Upper Extremity X-Ray(s): Hand, bilateral PERIPHERAL IV DATA: Not applicable SIGNED BY: RT Agnes(R) August 02, 2023 8:57 AM documented in this encounter [facility] 07-29-2023 Miscellaneous Notes The following approved medication requests have been transmitted electronically. Requested Prescriptions Signed Prescriptions Disp Refills HYDROcodone-Acetaminophen (NORCO) 10-325 mg per tablet 60 tablet 0 Sig: Take 0.5-1 tablets by mouth every 8 hours as needed for pain. Authorizing Provider: EDINSON ZARATE MD Patient requesting refills as follows via Colorader[facility]: LACHELLE: 07/07/23 Meryl LACHELLE: 03/30/23 Elliot NOV: not scheduled Requested Prescriptions Pending Prescriptions Disp Refills HYDROcodone-Acetaminophen (NORCO) 10-325 mg per tablet 60 tablet 0 Sig: Take 0.5-1 tablets by mouth every 8 hours as needed for pain. Please review and advise. Luz Maria Guerra documented in this encounter [facility] 07-21-2023 Miscellaneous Notes Pharmacy verified in [facility] Patient has been identified by name and date of : Yes Patient aware RX will be sent to pharmacy. No need to notify patient. Patient phones for refill(s): Requested Prescriptions Pending Prescriptions Disp Refills amLODIPine (NORVASC) 5 mg tablet 90 tablet 3 Sig: Take 1 tablet by mouth once daily. Date of last office visit : 03/30/2023 Date of next office visit : Visit date not found Last 2 Encounter Wt Readings: Date: Wt: 04/19/2023 131.1 kg (289 lb) 03/30/2023 131.1 kg (289 lb) Not applicable Please advise. Sienna Inman documented in this encounter [facility] 07-07-2023 History of Present illness Narrative VIRTUAL VISIT PROGRESS NOTE This is a virtual visit using Paperfold Video Visit. It required patient-provider interaction for the medical decision making as documented below. I have communicated my name and active licensure. The patient's identity and physical location were verified at the time of this visit. 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 Zayda De La Vega is a 72 year old male seen for cough. Notes ongoing cough since he had covid in May. Cough is dry. Feels better today. Chest x-ray today shows no acute process but minimal stable atelectasis or fibrosis at both lung bases. No SOB/wheezing. Has had some sweating episodes during the day. Has not been using his Advair daily, stopped taking it daily around January. Only uses it about 3 times per month. Is taking Pepcid BID. Was taking Mucinex and sudafed for the cough. Does take Aníbal daily. Cough does not keep him up at night. Does have some ongoing congestion and postnasal drainage. Has flonase at home, but hasn't been taking it. HISTORY REVIEWED (electronic chart updated): PAST MEDICAL HISTORY Diagnosis Date Anxiety Dr. Belle Arthritis of both hips Benign neoplasm of colon Bipolar disorder (HCC) Dr. Belle DDD (degenerative disc disease), lumbar Depressive disorder, not elsewhere classified Diverticulosis of colon (without mention of hemorrhage) HLD (hyperlipidemia) 06/13/2017 Hypertension Internal hemorrhoids without mention of complication Monoclonal paraproteinemia Morbid obesity (HCC) MARCELINA (obstructive sleep apnea) 1997 BiPAP Peripheral neuropathy Prediabetes 09/11/2019 Seasonal allergies Shoulder arthritis Systemic lupus erythematosus (HCC) 10/2021 PAST SURGICAL HISTORY Procedure Laterality Date ARTHROPLASTY TOTAL SHOULDER 04/03/2013 Right shoulder replacement ARTHRP ACETBLR/PROX FEM PROSTC AGRFT/ALGRFT 1992 Hip replacement, total RIGHT BACK SURGERY HX COLONOSCOPY FLX DX W/COLLJ SPEC WHEN PFRMD 08/11/1992 Colonoscopy COLONOSCOPY FLX DX W/COLLJ SPEC WHEN PFRMD 09/01/2018 Colonoscopy COLSC FLX W/RMVL OF TUMOR POLYP LESION SNARE TQ 06/26/08 ESOPHAGOGASTRODUODENOSCOPY TRANSORAL DIAGNOSTIC 05/08/2020 EGD JOINT REPLACEMENT HX PAST SURGICAL HISTORY OF 1995 L5-S1 spinal fusion with pins, rods, and bolts PAST SURGICAL HISTORY OF 03/2011 Right hip revision PAST SURGICAL HISTORY OF 1971 right shoulder surgery PAST SURGICAL HISTORY OF Left 2018 shoulder replacement FAMILY HISTORY Problem Relation Age of Onset Cancer Mother skin Cancer Father KIDNEY other (Brain Tumor) Father Cancer Sister thyroid No Known Problems Brother Social History Tobacco Use Smoking status: Former Packs/day: 1.00 Years: 10.00 Additional pack years: 0.00 Total pack years: 10.00 Types: Cigarettes Quit date: 10/27/1983 Years since quittin.7 Smokeless tobacco: Never Vaping Use Vaping Use: Never used Substance Use Topics Alcohol use: Yes Comment: very rarely Drug use: No Current Outpatient Medications Medication Sig HYDROcodone-Acetaminophen (NORCO) 10-325 mg per tablet Take 0.5-1 tablets by mouth every 8 hours as needed for pain. amLODIPine (NORVASC) 5 mg tablet TAKE 1 TABLET DAILY metoprolol succinate ER (TOPROL XL) 25 mg 24 hr tablet Take 2 tablets by mouth once daily. famotidine (PEPCID) 20 mg tablet Take 1 tablet by mouth twice daily. tamsulosin (FLOMAX) 0.4 mg Take 1 capsule by mouth daily at bedtime. CHLORPHENIRAMINE-DEXTROMETHORP ORAL Take by mouth. SAVELLA 12.5 mg tab guaiFENesin (MUCINEX) 600 mg 12 hr tablet Take 1,200 mg by mouth twice daily as needed for cold/allergy symptoms. red beet root-sour richardson ext 250-0.5 mg chew Take by mouth. BARLEY, WHOLE GROUND fish oil/borage/flax/om3,6,9 1 (OMEGA 3-6-9 ORAL) Take by mouth. CPAP/BIPAP/OTHER Type .CPAPSettings into a note to see current settings/supplies/DME information. meloxicam (MOBIC) 15 mg tablet Take 0.5-1 tablets by mouth once daily. hydrOXYchloroQUINE (PLAQUENIL) 200 mg tablet Take 1 tablet by mouth twice daily. pregabalin (LYRICA) 225 mg capsule Take 1 capsule by mouth twice daily for 90 days. fexofenadine (ANÍBAL) 180 mg tablet TAKE 1 TABLET DAILY fluticasone-salmeterol (ADVAIR DISKUS) 100-50 mcg/dose inhaler Inhale 1 Puff as instructed twice daily. CPAP/BIPAP/OTHER Type .CPAPSettings into a note to see current settings/supplies/DME information. alpha lipoic acid (LIPOIC ACID ORAL) Take by mouth. ZINC ORAL Take by mouth. LYSINE ORAL Take by mouth. azelastine (ASTELIN, ASTEPRO) 0.1% nasal spray Use 1 [place] in each nostril twice daily. fluticasone (FLONASE) 50 mcg/actuation nasal spray Use 2 Sprays in each nostril once daily. CPAP Continue BiPAP with new settings: @ 14/8 cm of water with humidification. No new equipment is needed. aspirin, enteric coated (ASPIRIN, ENTERIC COATED) 81 mg EC tablet Take 81 mg by mouth once daily. IRON, FERROUS SULFATE, ORAL Take by mouth once daily. ASCORBIC ACID (VITAMIN C ORAL) Take by mouth once daily. buPROPion (WELLBUTRIN) 75 mg tablet Take 150 mg by mouth twice daily. Current Facility-Administered Medications Medication Dose Route Frequency perflutren lipid microspheres 1.3 mL in NaCl (PF) 0.9% 10 mL injection (DEFINITY) INTRAVENOUS DIRECTED PRN sodium chloride 0.9 % (flush) 10 mL (BD POSIFLUSH) 10 mL INTRAVENOUS DIRECTED PRN ALLERGIES Allergen Reactions Aspartame Swelling Pt gets burning sensation under skin Betadine [Povidone-* Rash Blister Lisinopril Cough Cough Losartan Cough Niacin Other: See Comments Niacin-Dermid Burning pain all over Penicillins Rash Seasonal Allergies Other: See Comments GRASS POLLEN-positive skin test 09-05-13 Sudafed [Pseudoephe* Other: See Comments Difficulty swallowing, swelling of tongue & lips Tamiflu [Oseltamivi* Shortness of Breath SOB, arm pain Trazodone Shortness of Breath Ultram [Tramadol] Per patient contraindication due to wellbutrin REVIEW OF SYSTEMS: As above PHYSICAL EXAMINATION: VIDEO EXAM: (if completed, performed via video enabled technology) GENERAL: alert and appropriate, in no distress, well-hydrated, well nourished, and happy, smiling, interactive no cough noted 1. Chronic cough Likely related to postnasal drainage. Recommend Flonase 2 spray sin each nostril daily x 2 weeks and if no improvement/worsening, follow-up with PCP. Layo Cuellar APRN.EDOUARD documented in this encounter [facility] 07-06-2023 Miscellaneous Notes Called patient and left message Addended by: LAYO CUELLAR on: 07/06/2023 02:40 PM Modules accepted: Orders Patient would like a sooner appointment than 07/25, see if you can assist him in finding something, may be with me if he's ok with that. Layo Cuellar APRN.EDOUARD 1st attempt. Called patient and left message on VM documented in this encounter [facility] 06-09-2023 Miscellaneous Notes Please schedule appt next month, Edinson Zarate MD The following approved medication requests have been transmitted electronically. Requested Prescriptions Signed Prescriptions Disp Refills HYDROcodone-Acetaminophen (NORCO) 10-325 mg per tablet 60 tablet 0 Sig: Take 0.5-1 tablets by mouth every 8 hours as needed for pain. Authorizing Provider: EDINSON ZARATE MD Last appointment: 05/18/23 Next appointment: NA Pharmacy verified in [facility]. Refill(s) requested: Requested Prescriptions Pending Prescriptions Disp Refills HYDROcodone-Acetaminophen (NORCO) 10-325 mg per tablet 60 tablet 0 Sig: Take 0.5-1 tablets by mouth every 8 hours as needed for pain. Order(s) pended. Please advise,thank you. Deirdre VASQUEZ June 09, 2023 8:40 AM documented in this encounter [facility] 05-26-2023 Miscellaneous Notes The following approved medication requests have been transmitted electronically. Requested Prescriptions Signed Prescriptions Disp Refills amLODIPine (NORVASC) 5 mg tablet 90 tablet 3 Sig: TAKE 1 TABLET DAILY Authorizing Provider: EDINSON AZRATE MD Pharmacy verified in Epic Patient has been identified by name and date of : Yes Patient aware RX will be sent to pharmacy. No need to notify patient. Pharmacy phones for refill(s): Requested Prescriptions Pending Prescriptions Disp Refills amLODIPine (NORVASC) 5 mg tablet [Pharmacy Med Name: AMLODIPINE BESYLATE TABS 5MG] 90 tablet 3 Sig: TAKE 1 TABLET DAILY Date of last office visit : 03/30/2023 Date of next office visit : Visit date not found Last 2 Encounter Wt Readings: Date: Wt: 04/19/2023 131.1 kg (289 lb) 03/30/2023 131.1 kg (289 lb) Blood Pressure: BUN (mg/dL) Date Value 02/08/2023 20 07/15/2021 14 Creatinine (mg/dL) Date Value 02/08/2023 0.84 07/15/2021 0.80 Sodium (mmol/L) Date Value 02/08/2023 134 07/15/2021 135 Potassium (mmol/L) Date Value 02/08/2023 4.5 07/15/2021 4.4 Last 1 Encounter BP Readings: Date: BP: 04/19/2023 138/71 Please advise. Gricelda Lloyd LPN documented in this encounter [facility] 05-18-2023 Instructions Layo Cuellar APRN.DISTRICT RESOURCE OFFICER - 05/18/2023 11:14 AM EDT Fact Sheet for Patients And Caregivers Emergency Use Authorization (EUA) Of LAGEVRIO (molnupiravir) capsules For Coronavirus Disease 2019 (COVID-19) What is the most important information I should know about LAGEVRIO? LAGEVRIO may cause serious side effects, including: LAGEVRIO may cause harm to your unborn baby. It is not known if LAGEVRIO will harm your baby if you take LAGEVRIO during . LAGEVRIO is not recommended for use in . LAGEVRIO has not been studied in . LAGEVRIO was studied in animals only. When LAGEVRIO was given to animals, LAGEVRIO caused harm to their unborn babies. You and your healthcare provider may decide that you should take LAGEVRIO during if there are no other COVID-19 treatment options approved or authorized by the FDA that are accessible or clinically appropriate for you. If you and your healthcare provider decide that you should take LAGEVRIO during , you and your healthcare provider should discuss the known and potential benefits and the potential risks of taking LAGEVRIO during . For individuals who are able to become : You should use a reliable method of control (contraception) consistently and correctly during treatment with LAGEVRIO and for 4 days after the last dose of LAGEVRIO. Talk to your healthcare provider about reliable control methods. Before starting treatment with LAGEVRIO your healthcare provider may do a test to see if you are before starting treatment with LAGEVRIO. Tell your healthcare provider right away if you become or think you may be during treatment with LAGEVRIO. Registry: There is a registry for individuals who take LAGEVRIO during . The purpose of this program is to collect information about the health of you and your baby. If you are or become during treatment with LAGEVRIO, you are encouraged to report your use of LAGEVRIO during to this registry at [email or web address] or . For individuals who are sexually active with partners who are able to become : It is not known if LAGEVRIO can affect sperm. While the risk is regarded as low, animal studies to fully assess the potential for LAGEVRIO to affect the babies of males treated with LAGEVRIO have not been completed. A reliable method of control (contraception) should be used consistently and correctly during treatment with LAGEVRIO and for at least 3 months after the last dose. The risk to sperm beyond 3 months is not known. Studies to understand the risk to sperm beyond 3 months are ongoing. Talk to your healthcare provider about reliable control methods. Talk to your healthcare provider if you have questions or concerns about how LAGEVRIO may affect sperm. You are being given this fact sheet because your healthcare provider believes it is necessary to provide you with LAGEVRIO for the treatment of adults with a current diagnosis of mild-tomoderate coronavirus disease 2019 (COVID-19) who are at high risk for progression to severe COVID-19, including hospitalization or , and for whom other COVID-19 treatment options approved or authorized by the FDA are not accessible or clinically appropriate. The [place]. Food and Drug Administration (FDA) has issued an Emergency Use Authorization (EUA) to make LAGEVRIO available during the COVID-19 pandemic (for more details about an EUA please see What is an Emergency Use Authorization? at the end of this document). LAGEVRIO is not an FDA-approved medicine in the [place]. Read this Fact Sheet for information about LAGEVRIO. Talk to your healthcare provider about your options if you have any questions. It is your choice to take LAGEVRIO. What is COVID-19? COVID-19 is caused by a virus called a coronavirus. You can get COVID-19 through close contact with another person who has the virus. COVID-19 illnesses have ranged from very wuif-kv-jiujcx, including illness resulting in . While information so far suggests that most COVID-19 illness is mild, serious illness can happen and may cause some of your other medical conditions to become worse. Older people and people of all ages with severe, long lasting (chronic) medical conditions like heart disease, lung disease and diabetes, for example seem to be at higher risk of being hospitalized for COVID-19. What is LAGEVRIO? LAGEVRIO is an investigational medicine used to treat adults with a current diagnosis of mild to moderate COVID-19: who are at high risk for progression to severe COVID-19 including hospitalization or , and for whom other COVID-19 treatment options approved or authorized by the FDA are not accessible or clinically appropriate. The FDA has authorized the emergency use of LAGEVRIO for the treatment of mild-tomoderate COVID-19 in adults under an EUA. For more information on EUA, see the What is an Emergency Use Authorization (EUA)? section at the end of this Fact Sheet. LAGEVRIO is not authorized: for use in people less than 18 years of age. for prevention of COVID-19. for people needing hospitalization for COVID-19. for use for longer than 5 consecutive days. What should I tell my healthcare provider before I take LAGEVRIO? Tell your healthcare provider if you: have any allergies are or plan to breastfeed have any serious illnesses Take any medicines including prescription, aufp-ype-knilnfx medicines, vitamins, and herbal products. How do I take LAGEVRIO? Take LAGEVRIO exactly as your healthcare provider tells you to take it. Take 4 capsules of LAGEVRIO every 12 hours (for example, at 8 am and at 8 pm) Take LAGEVRIO for 5 days. It is important that you complete the full 5 days of treatment with LAGEVRIO. Do not stop taking LAGEVRIO before you complete the full 5 days of treatment, even if you feel better. Take LAGEVRIO with or without food. You should stay in isolation for as long as your healthcare provider tells you to. Talk to your healthcare provider if you are not sure about how to properly isolate while you have COVID-19. Swallow LAGEVRIO capsules whole. Do not open, break, or crush the capsules. If you cannot swallow capsules whole, tell your healthcare provider. If your healthcare provider prescribes LAGEVRIO and tells you to take or give a dose through a nasogastric (NG) or orogastric (OG) tube, follow the instructions below: How to take or give a dose of LAGEVRIO through a nasogastric (NG) or orogastric (OG) feeding tube. You must have an NG or OG that is size 12 Macedonian (FR) or larger. If you miss a dose of LAGEVRIO: If it has been less than 10 hours since the missed dose, take it as soon as you remember. If it has been more than 10 hours since the missed dose, skip the missed dose and take your dose at the next scheduled time. Do not double the dose of LAGEVRIO to make up for a missed dose. How to take or give a dose of LAGEVRIO through a nasogastric (NG) or orogastric (OG) feeding tube: Wash your hands well with soap and water. Gather the supplies you will need to take or give the prescribed dose of LAGEVRIO. 4 LAGEVRIO capsules 1 liquid measuring cup with mL markings to measure 40 mL of room temperature water 1 clean container with a lid 1 catheter tip syringe. Your healthcare provider should tell you what size catheter tip syringe you will need to take or give a dose of LAGEVRIO. Place the needed supplies on a clean work surface. Follow your healthcare provider s instructions on how to flush the NG or OG feeding tube. Flush the NG or OG feeding tube with 5 mL of water before taking or giving a dose of LAGEVRIO. Carefully open 4 LAGEVRIO capsules, one at a time, and empty the contents into a clean container. Use the liquid measuring cup to measure 40 mL of room temperature water and add to the container containing the capsule contents. Place the lid on the container. Shake to mix the capsule contents and water well for 3 minutes. The capsule contents may not dissolve completely. Remove the lid from the container and draw up all the LAGEVRIO and water mixture into a catheter tip syringe. Give all of the mixture right away through the NG or OG feeding tube. Do not keep the mixture for future use. If any capsule contents are left in the container: Add 10 mL of water to the container, and mix to loosen any capsule contents that are left in the container. Use the catheter tip syringe to draw up all of the mixture in the container. Give the mixture through the NG or OG feeding tube. Repeat this process as needed until you no longer see any capsule contents left in the container or catheter tip syringe. Use the same catheter tip syringe to flush the NG or OG feeding tube 2 times with 5 mL of water (10mL total). Rinse the container, lid and catheter tip syringe well with clean water after use. Place on a clean paper towel until next use. What are the important possible side effects of LAGEVRIO? See, What is the most important information I should know about LAGEVRIO? Allergic Reactions. Allergic reactions can happen in people taking LAGEVRIO, even after only 1 dose. Stop taking LAGEVRIO and call your healthcare provider right away if you get any of the following symptoms of an allergic reaction: hives rapid heartbeat trouble swallowing or breathing swelling of the mouth, lips, or face throat tightness hoarseness skin rash The most common side effects of LAGEVRIO are: diarrhea nausea dizziness These are not all the possible side effects of LAGEVRIO. Not many people have taken LAGEVRIO. Serious and unexpected side effects may happen. This medicine is still being studied, so it is possible that all of the risks are not known at this time. What other treatment choices are there? Veklury (remdesivir) is FDA-approved as an intravenous (IV) infusion for the treatment of mildto-moderate COVID-19 in certain adults and children. Talk with your doctor to see if Veklury is appropriate for you. Like LAGEVRIO, FDA may also allow for the emergency use of other medicines to treat people with COVID-19. Go to https://www.fda.gov/emergency-prepared bwjx-dls-roetibza/mcm-legalregulatory- gln-vrohyf-wypfyzcnk/iynmahonk-kpn-ype horization for more information. It is your choice to be treated or not to be treated with LAGEVRIO. Should you decide not to take it, it will not change your standard medical care. What if I am ? is not recommended during treatment with LAGEVRIO and for 4 days after the last dose of LAGEVRIO. If you are or plan to breastfeed, talk to your healthcare provider about your options and specific situation before taking LAGEVRIO. How do I report side effects with LAGEVRIO? Contact your healthcare provider if you have any side effects that bother you or do not go away. Report side effects to FDA MedWatch at www.fda.gov/medwatch or call 9-205-NBP-6998 ([phone]). How should I store LAGEVRIO? Store LAGEVRIO capsules at room temperature between 68 F to 77 F (20 C to 25 C). Keep LAGEVRIO and all medicines out of the reach of children. How can I learn more about COVID-19? Ask your healthcare provider. Visit www.cdc.gov/COVID19 Contact your local or state public health department. Call [employer] at (toll free in the [place] Visit www.mAPPn What Is an Emergency Use Authorization (EUA)? The [place] FDA has made LAGEVRIO available under an emergency access mechanism called an Emergency Use Authorization (EUA) The EUA is supported by a Tool Machine Setup Operator of Health and Human Service ([facility]) declaration that circumstances exist to justify emergency use of drugs and biological products during the COVID-19 pandemic. LAGEVRIO for the treatment of adults with a current diagnosis of lywk-mk-hvvhvpnv COVID-19 who are at high risk for progression to severe COVID-19, including hospitalization or , and for whom alternative COVID-19 treatment options approved or authorized by FDA are not accessible or clinically appropriate, has not undergone the same type of review as an FDAapproved product. In issuing an EUA under the COVID-19 public health emergency, the FDA has determined, among other things, that based on the total amount of scientific evidence available including data from adequate and well-controlled clinical trials, if available, it is reasonable to believe that the product may be effective for diagnosing, treating, or preventing COVID-19, or a serious or life-threatening disease or condition caused by COVID-19; that the known and potential benefits of the product, when used to diagnose, treat, or prevent such disease or condition, outweigh the known and potential risks of such product; and that there are no adequate, approved, and available alternatives. All of these criteria must be met to allow for the product to be used in the treatment of patients during the COVID-19 pandemic. The EUA for LAGEVRIO is in effect for the duration of the COVID-19 declaration justifying emergency use of LAGEVRIO, unless terminated or revoked (after which LAGEVRIO may no longer be used under the EUA). Roland. for: [employer] [address] For patent information: www.[employer].Son[employer]/research/patent Copyright [employer] [place], [place], [place] and its affiliates. All rights reserved. [id number] Revised: November 2022 documented in this encounter [facility] 05-18-2023 History of Present illness Narrative Telemedicine Evaluation for COVID-19 Infection MyChart video visit was used for evaluation of this patient. I have communicated my name and active licensure. The patient's identity and physical location were verified at the time of this visit. 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 SUBJECTIVE Zayda De La Vega is a 72 year old male who presents with 2 days of symptoms that are improving. Symptoms started Tuesday with a tickle in throat, then most symptoms hit him yesterday, tested positive yesterday. Feels better today. History of covid infection last fall, required an ER visit and oxygen, did not take antiviral. Symptoms include: Fever (?100.4F): No or Chills: No Cough: Yes Shortness of breath: No or Difficulty breathing: No Fatigue: Yes Muscle aches: Yes Headache: Yes New loss of smell or taste: No Sore throat: No Nasal congestion: Yes or Rhinorrhea: Yes Nausea: No or Vomiting: No Diarrhea: No OTC meds/remedies that patient has tried: pseudoephedrine, coricidin HBP High risk category assessment Age > 60 years old Hypertension Exposures: Sick contacts? No Family or close contacts with confirmed/probable COVID-19 in last 14 days? No OBJECTIVE VIDEO EXAM temperature 97.2, pulse 72, 94% (typically runs 93-94%). GENERAL: well appearing, alert, in no acute distress HEENT: PULMONARY: breathing comfortably on room air , no coughing noted, and no wheezing noted - Discussed symptom monitoring and supportive care - Red flag symptoms requiring follow up discussed Molnupiravir Eligibility and Patient Discussion [facility] Formulary Restriction Criteria: Adult outpatients 18 years and older with ALL of the following: [x] Patient has symptoms for 5 days or less [x] Not requiring hospitalization at any time for management of COVID-19 [x] Not requiring supplemental oxygen or a change in baseline supplemental oxygen [x] Not utilized for pre-exposure or post-exposure prophylaxis for prevention of COVID-19 [x] Patient is not or lactating [x] Meeting at least one of the criteria for high risk of progression to severe COVID-19: [x] Age over 65 years [] Cancer [] Chronic kidney disease [] Chronic liver disease [x] Chronic lung diseases, including cystic fibrosis [] Dementia or other neurological conditions [] Diabetes (type 1 or type 2) [] Disabilities, including Down syndrome and neurodevelopmental disorders [x] Heart conditions [] HIV infection [] Immunocompromised state [] Mental health conditions [] Medical related technological dependence (tracheostomy, gastrostomy, or positive pressure ventilation (not related to COVID) [x] Overweight and obesity (BMI greater or equal to 25 for adults) [] Physical inactivity [] Sickle cell disease or thalassemia [] Smoking, current or former [] Solid organ or blood stem cell transplant [] Stroke or cerebrovascular disease [] Substance use disorders [] Tuberculosis [] People from racial and ethnic minority groups Criteria above are met: Yes Date of Symptom Onset: 05/16/23 Patient received COVID vaccine: Yes / status reviewed: Females: [] Patient is not currently and there is no possibility the patient could be (select one of the following): [] test does not need to be confirmed in patients who have undergone permanent sterilization, are currently using an intrauterine system or contraceptive implant, or in whom is not possible. [] Patients not meeting conditions above: assess whether the patient is based on the first day of the last menstrual period in individuals who have regular menstrual cycles, is using reliable method of contraception correctly and consistently or have had a negative test [] A test is recommended if the individual has irregular menstrual cycles, is unsure of the first day of the last menstrual period or is not using effective contraception correctly and consistently [] Patient is not currently . is not recommended during treatment and for four days after final dose of molnupiravir. [] Females have been advised to use a reliable method of contraception correctly and consistently for the duration of treatment and for four days after the last dose of molnupiravir Males: [x] Sexually active male with partner(s) of childbearing potential has been advised to use a reliable method of contraception correctly and consistently for intercourse for the duration of treatment and for three months after the last dose of molnupiravir I have discussed the use of the investigational therapeutic, molnupiravir, for the treatment of mild to moderate COVID-19 and its use under Emergency Use Authorization with the patient. The patient was informed that molnupiravir is not an FDA approved drug and that it is authorized for use under this Emergency Use Authorization. The patient was also informed of the significant known benefits and potential risks of molnupiravir, and the extent to which such potential risks and benefits are unknown. The patient was informed that there is mandatory reporting of all medication errors and serious adverse events potentially related to molnupiravir treatment within 7 calendar days from the onset of the event and that events up to 28 days after completion of therapy need to be reported. The discussion included alternatives to receiving molnupiravir, including clinical trials, and potential the risks and benefits of those alternatives. The patient was provided electronically with the Fact Sheet for Patients, Parents and Caregivers. The patient was also instructed that in addition to the treatment with molnupiravir, he/she should continue to self-isolate and use infection control measures (e.g., wear mask, isolate, social distance, avoid sharing personal items, clean and disinfect high touch surfaces, and frequent handwashing) according to CDC guidelines. The patient stated understanding and gave verbal consent to proceeding with molnupiravir treatment. 1. COVID-19 Multiple medication interactions with paxlovid, so choosing molnupiravir. Continue supportive care. If O2 drops below 90% or any new or worsening chest pain/shortness of breath, go to ER. Follow up PRN. - molnupiravir 200 mg capsule; Take 4 capsules by mouth twice daily for 5 days. Dispense: 40 capsule; Refill: 0 Layo Cuellar APRN.CNP May 18, 2023 11:16 AM documented in this encounter [facility] 05-17-2023 Miscellaneous Notes Patient requesting COVID medication/VV scheduled tomorrow AM Reason for Disposition [1] HIGH RISK for severe COVID complications (e.g., weak immune system, age > 64 years, obesity with BMI 30 or higher, , chronic lung disease or other chronic medical condition) AND [2] COVID symptoms (e.g., cough, fever) (Exceptions: Already seen by PCP and no new or worsening symptoms.) Answer Assessment - Initial Assessment Questions 1. COVID-19 DIAGNOSIS:Today via home test 2. COVID-19 EXPOSURE: No 3. ONSET:Yesterday 4. WORST SYMPTOM: Cough 5. COUGH: mild 6. FEVER: No 7. RESPIRATORY STATUS: No respiratory distress 8. IMKWBS-GXWJ-PWYEV: Same 9. HIGH RISK DISEASE: Multiple Myeloma, sleep apnea Protocols used: Coronavirus (COVID-19) Diagnosed or [id number] documented in this encounter [facility] 05-17-2023 Miscellaneous Notes Spoke with patient's . Zayda tested positive for COVID is not currently having any respiratory distress but is concerned due to his symptoms when he had COVID last year. He is requesting COVID medication. VV set up tomorrow AM with Layo Cuellar CNP. documented in this encounter [facility] 04-19-2023 History of Present illness Narrative RHEUMATOLOGY FOLLOW UP NOTE PROVIDER: aPt Seo MD DATE OF VISIT: 04/19/2023 PATIENT NAME: Zayda De La Vega CHIEF COMPLAINT / REASON FOR VISIT: Lupus SUBJECTIVE / INTERIM HISTORY: Patient returns for follow-up. Last seen here 6 mos ago. Since last visit: Old problems: 1. Possible lupus 2. Cough CXR abnormal Saw Pulmonary Echo OK PFT OK 3. Neuropathy Saw Neurology 4. Gammopathy Sees Hematology 5. Chronic pains Now on Savella New problems: 1. Trial of prednisone did not help 2. No new medical problems REVIEW OF SYSTEMS: Review of Systems CONSTITUTION: Negative for: Fever and Recent weight change HEENT: Positive for: Mouth sores, Trouble swallowing and Dry mouth Negative for: Nosebleeds RESPIRATORY: Positive for: Cough and Shortness of breath Negative for: Pain with breathing and Coughing up blood GASTROINTESTINAL: Negative for: Melena, Diarrhea, Heartburn and Abdominal pain MUSCULOSKELETAL: Positive for: Arthralgias, Myalgias, Muscle weakness, Joint swelling and Morning Joint Stiffness NEUROLOGICAL: Positive for: Numbness and Memory loss Negative for: Headaches SKIN: Positive for: Hair loss and Nail changes Negative for: Rash and Skin changes EYES: Positive for: Visual disturbance Negative for: Eye pain and Eye dryness CARDIOVASCULAR: Negative for: Chest pain and Leg swelling GENITOURINARY: Negative for: Dysuria HEMATOLOGIC/LYMPHATIC: Negative for: Swollen glands PAST MEDICAL AND SURGICAL HISTORY PAST MEDICAL HISTORY Diagnosis Date Anxiety Dr. Belle Arthritis of both hips Benign neoplasm of colon Bipolar disorder ([facility]) Dr. Belle DDD (degenerative disc disease), lumbar Depressive disorder, not elsewhere classified Diverticulosis of colon (without mention of hemorrhage) HLD (hyperlipidemia) 06/13/2017 Hypertension Internal hemorrhoids without mention of complication Monoclonal paraproteinemia Morbid obesity (HCC) MARCELINA (obstructive sleep apnea) 1997 BiPAP Peripheral neuropathy Prediabetes 09/11/2019 Seasonal allergies Shoulder arthritis Systemic lupus erythematosus (HCC) 10/2021 PAST SURGICAL HISTORY Procedure Laterality Date ARTHROPLASTY TOTAL SHOULDER 04/03/2013 Right shoulder replacement ARTHRP ACETBLR/PROX FEM PROSTC AGRFT/ALGRFT 1992 Hip replacement, total RIGHT BACK SURGERY HX COLONOSCOPY FLX DX W/COLLJ SPEC WHEN PFRMD 08/11/1992 Colonoscopy COLONOSCOPY FLX DX W/COLLJ SPEC WHEN PFRMD 09/01/2018 Colonoscopy COLSC FLX W/RMVL OF TUMOR POLYP LESION SNARE TQ 06/26/08 ESOPHAGOGASTRODUODENOSCOPY TRANSORAL DIAGNOSTIC 05/08/2020 EGD JOINT REPLACEMENT HX PAST SURGICAL HISTORY OF 1995 L5-S1 spinal fusion with pins, rods, and bolts PAST SURGICAL HISTORY OF 03/2011 Right hip revision PAST SURGICAL HISTORY OF 1970 right shoulder surgery PAST SURGICAL HISTORY OF Left 2018 shoulder replacement SOCIAL AND FAMILY HISTORY FAMILY HISTORY Problem Relation Age of Onset Cancer Mother skin Cancer Father KIDNEY other (Brain Tumor) Father Cancer Sister thyroid No Known Problems Brother Social History Tobacco Use Smoking status: Former Packs/day: 1.00 Years: 10.00 Total pack years: 10.00 Types: Cigarettes Quit date: 10/27/1983 Years since quittin.5 Smokeless tobacco: Never Vaping Use Vaping Use: Never used Substance Use Topics Alcohol use: Yes Comment: very rarely Drug use: No CURRENT MEDICATIONS: Current Outpatient Medications Medication Sig metoprolol succinate ER (TOPROL XL) 25 mg 24 hr tablet Take 2 tablets by mouth once daily. famotidine (PEPCID) 20 mg tablet Take 1 tablet by mouth twice daily. tamsulosin (FLOMAX) 0.4 mg Take 1 capsule by mouth daily at bedtime. CHLORPHENIRAMINE-DEXTROMETHORP ORAL Take by mouth. SAVELLA 12.5 mg tab guaiFENesin (MUCINEX) 600 mg 12 hr tablet Take 1,200 mg by mouth twice daily as needed for cold/allergy symptoms. red beet root-sour richardson ext 250-0.5 mg chew Take by mouth. BARLEY, WHOLE GROUND fish oil/borage/flax/om3,6,9 1 (OMEGA 3-6-9 ORAL) Take by mouth. HYDROcodone-Acetaminophen (NORCO) 10-325 mg per tablet Take 0.5-1 tablets by mouth every 8 hours as needed for pain. predniSONE (DELTASONE) 5 mg tablet Take 1 tablet by mouth twice daily. CPAP/BIPAP/OTHER Type .CPAPSettings into a note to see current settings/supplies/DME information. meloxicam (MOBIC) 15 mg tablet Take 0.5-1 tablets by mouth once daily. hydrOXYchloroQUINE (PLAQUENIL) 200 mg tablet Take 1 tablet by mouth twice daily. pregabalin (LYRICA) 225 mg capsule Take 1 capsule by mouth twice daily for 90 days. amLODIPine (NORVASC) 5 mg tablet Take 1 tablet by mouth once daily. fexofenadine (ANÍBAL) 180 mg tablet TAKE 1 TABLET DAILY fluticasone-salmeterol (ADVAIR DISKUS) 100-50 mcg/dose inhaler Inhale 1 Puff as instructed twice daily. CPAP/BIPAP/OTHER Type .CPAPSettings into a note to see current settings/supplies/DME information. alpha lipoic acid (LIPOIC ACID ORAL) Take by mouth. ZINC ORAL Take by mouth. LYSINE ORAL Take by mouth. azelastine (ASTELIN, ASTEPRO) 0.1% nasal spray Use 1 [place] in each nostril twice daily. fluticasone (FLONASE) 50 mcg/actuation nasal spray Use 2 Sprays in each nostril once daily. CPAP Continue BiPAP with new settings: @ 14/8 cm of water with humidification. No new equipment is needed. aspirin, enteric coated (ASPIRIN, ENTERIC COATED) 81 mg EC tablet Take 81 mg by mouth once daily. IRON, FERROUS SULFATE, ORAL Take by mouth once daily. ASCORBIC ACID (VITAMIN C ORAL) Take by mouth once daily. buPROPion (WELLBUTRIN) 75 mg tablet Take 150 mg by mouth twice daily. Current Facility-Administered Medications Medication Dose Route Frequency perflutren lipid microspheres 1.3 mL in NaCl (PF) 0.9% 10 mL injection (DEFINITY) INTRAVENOUS DIRECTED PRN sodium chloride 0.9 % (flush) 10 mL (BD POSIFLUSH) 10 mL INTRAVENOUS DIRECTED PRN PHYSICAL EXAMINATION: General: Patient is alert and oriented. Appears healthy and well. Vital signs: BP 138/71 Pulse 73 Temp 36.9 C (98.5 F) (Temporal) Wt 131.1 kg (289 lb) BMI 44.26 kg/m Skin: No rash, nodule or thickening. Lymph: Normal in neck and axillae. Neck: No thyromegaly or mass. Lungs: Normal resp. effort. Clear to A & P. Heart: RRR without gallop, murmur or rub. Extremities: No edema. Pulses equal and normal. Musculoskeletal: No new joint swelling or tenderness DATA: Laboratory: Reviewed Component Latest Ref Rng & Units 02/08/2023 WBC 3.70 - 11.00 k/uL 8.37 RBC 4.20 - 6.00 m/uL 4.20 Hemoglobin 13.0 - 17.0 g/dL 12.8 (L) Hematocrit 39.0 - 51.0 % 39.2 MCV 80.0 - 100.0 fL 93.3 MCH 26.0 - 34.0 pg 30.5 MCHC 30.5 - 36.0 g/dL 32.7 RDW-CV 11.5 - 15.0 % 14.3 Platelet Count 150 - 400 k/uL 281 MPV 9.0 - 12.7 fL 9.1 Neut% % 51.0 Abs Neut (ANC) 1.45 - 7.50 k/uL 4.27 Lymph% % 34.6 Abs Lymph 1.00 - 4.00 k/uL 2.90 [place]% % 9.[address] [place] <0.87 k/uL 0.82 Eosin% % 2.9 Abs Eosin <0.46 k/uL 0.24 Baso% % 0.6 Abs Baso <0.11 k/uL 0.05 Immature Gran % % 1.1 IMMATURE GRANS (ABS) <0.10 k/uL 0.09 NRBC /100 WBC 0.0 Absolute nRBC <0.01 k/uL <0.01 DTYPE Auto Protein, Total 6.3 - 8.0 g/dL 7.3 Albumin 3.9 - 4.9 g/dL 4.4 Calcium 8.5 - 10.2 mg/dL 9.8 Bilirubin, Total 0.2 - 1.3 mg/dL 0.3 Alkaline Phosphatase 38 - 113 U/L 56 AST 14 - 40 U/L 17 ALT 10 - 54 U/L 20 Glucose 74 - 99 mg/dL 107 (H) BUN 9 - 24 mg/dL 20 Creatinine 0.73 - 1.22 mg/dL 0.84 Sodium 136 - 144 mmol/L 134 (L) Potassium 3.7 - 5.1 mmol/L 4.5 Chloride 97 - 105 mmol/L 101 CO2 22 - 30 mmol/L 23 Anion Gap 9 - 18 mmol/L 10 eGFR >=60 mL/min/1.73m 92 Cholesterol, Total <200 mg/dL 157 Triglyceride <150 mg/dL 234 (H) HDL Cholesterol >39 mg/dL 32 (L) Non HDL Cholesterol <130 mg/dL 125 Fasting Time hrs 11 VLDL Cholesterol <30 mg/dL 47 (H) TC:HDL Ratio <5.10 4.91 LDL Cholesterol <100 mg/dL 78 LDL:HDL Ratio <2.54 2.44 Hemoglobin A1C 4.3 - 5.6 % 5.6 Estimated Average Glucose mg/dL 114 IMPRESSION / PROBLEM LIST: 1. 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 Likely small fiber neuropathy Based on symptoms Could be due to SLE or gammopathy Has seen Neurology in the past and then recent again 02/21 On Lyrica 3. Osteoarthritis 4. Gammopathy Following with Hematology here 5. Overweight 6. HTN 7. Hyperlipidemia 8. Anxiety / Depression 9. Ophtho up to date 10. Echocardiogram done 12/22 with RVSP est at 38 mmHg 10/25: Echo. RVSP 33 11. Oral mass 12. Indeterminate LAC 12. Cough Pulmonary consult RECOMMENDATIONS / PLAN: Laboratory: As outlined in orders. Consultations: FU Pulmonary FU Hematology FU Ophtho FU Neurology if necessary Physical / Occupational therapy: Continue home exercise program: light weights, range of motion and stretching. Medications: Continue Savella, Lyrica, Hydroxychloroquine Vaccinations: Keep up to date Other: Patient aware that I will call if testing is out of the range of what is expected. Patient should update all of his age appropriate malignancy screens. Follow-up: 6 mos Electronically signed by: Pat Seo MD CC: Edinson Zarate [address] [place] [address] [place] [id number] documented in this encounter [facility] 04-12-2023 Miscellaneous Notes Last appointment: 03/30/23 Next appointment: n/a Pharmacy verified in [facility]. Refill(s) requested: Requested Prescriptions Pending Prescriptions Disp Refills metoprolol succinate ER (TOPROL XL) 25 mg 24 hr tablet 180 tablet 3 Sig: Take 2 tablets by mouth once daily. famotidine (PEPCID) 20 mg tablet Sig: Take 1 tablet by mouth twice daily. Order(s) pended. Please advise. Sudheer Hodges Ma, CMA documented in this encounter [facility] 04-10-2023 Miscellaneous Notes Last appointment: 03/30/23 Next appointment: n/a Pharmacy verified in [facility]. Refill(s) requested: Requested Prescriptions Pending Prescriptions Disp Refills tamsulosin (FLOMAX) 0.4 mg 90 capsule 1 Sig: Take 1 capsule by mouth daily at bedtime. Refused Prescriptions Disp Refills amLODIPine (NORVASC) 5 mg tablet 90 tablet 1 Sig: Take 1 tablet by mouth once daily. Refused By: ALYO HERNANDZE MA Reason for Refusal: Records indicate that there is a valid prescription at the pharmacy Order(s) pended. Please advise. Layo Hernandez Ma, CMA documented in this encounter [facility] 03-29-2023 Miscellaneous Notes The following approved medication requests have been transmitted electronically. Requested Prescriptions Signed Prescriptions Disp Refills HYDROcodone-Acetaminophen (NORCO) 10-325 mg per tablet 60 tablet 0 Sig: Take 0.5-1 tablets by mouth every 8 hours as needed for pain. Authorizing Provider: EDINSON ZARATE MD Pharmacy verified in [email or web address]. Patient has been identified by name and date of : Yes Patient aware RX will be sent to pharmacy. No need to notify patient. Patient phones for refill(s): Requested Prescriptions Pending Prescriptions Disp Refills HYDROcodone-Acetaminophen (NORCO) 10-325 mg per tablet 60 tablet 0 Sig: Take 0.5-1 tablets by mouth every 8 hours as needed for pain. Date of last office visit : 01/11/2023 Date of next office visit : 03/30/2023 Last 2 Encounter Wt Readings: Date: Wt: 01/11/2023 131.1 kg (289 lb) 09/24/2022 129.7 kg (286 lb) Not applicable Please advise. Lynsey Townsend MA documented in this encounter [facility] 03-23-2023 History of Present illness Narrative POPULATION HEALTH NAVIGATION OUTREACH Action/ tna Care Gaps 5.30.23 Discuss/Due for: Follow Up with Edinson Zarate MD Return in about 2 months (around 03/13/2023). Outcome: 1st attempt - Spoke to patient Scheduled Follow Up with Edinson Zarate MD Patient Identified by Name and : YES, via phone Outreach Outcome/Action Spoke to patient / parent / legal guardian: Patient scheduled Did you use a PCP flex slot to schedule this appointment? No Reason for Outreach Care Gap or Scheduling/Wellness visits Payer: Payor: [employer] MEDICARE / Plan: [employer] MEDICARE PPO / Product Type: PPO / Care Gap Reviewed:: Follow-up appointment Reminder: Reminder note to check Health Maintenance for items below Health Maintenance items due: ADVANCE DIRECTIVE DISCUSSION due on 10/03/2022 Navigation Signature: Nidhi Casey MA March 23, 2023 10:27 AM documented in this encounter [facility] 02-11-2023 Miscellaneous Notes Patient reports no benefits with prednisone. Will have him taper off. He has FU set with me. Pat Seo MD documented in this encounter [facility] 02-07-2023 Miscellaneous Notes The following approved medication requests have been transmitted electronically. Requested Prescriptions Signed Prescriptions Disp Refills HYDROcodone-Acetaminophen (NORCO) 10-325 mg per tablet 60 tablet 0 Sig: Take 0.5-1 tablets by mouth every 8 hours as needed for pain. Edinson Zarate MD Please review and advise documented in this encounter [facility] 02-03-2023 History of Present illness Narrative Images from the original note were not included. FOLLOW UP PODIATRIC OFFICE VISIT Chief Complaint: This 72 year old male who presents for follow up:b/l foot pain. Worsening now on the L. Midfoot and ankle pain. Severe pes planus and arthritis history. His R foot/ankle pain better with insoles/brace. He is now wanting one for the L side. Has been seeing Dr. Garibay for nail care in [facility]. He is not interested in any surgical corrections. Recent lupus dx. Diffuse joint pain. Patient has been doing the following since last visit: [place] type brace articulated on the R with custom insoles b/l. PAIN EVALUATION 02/02/2023 1133 Pain Level: 5 Pain Location: -- bilateral feet, left worse than right Description: Sharp strong Frequency: Intermittent Hemoglobin A1C (POCT) Date Value Ref Range Status 05/06/2021 5.8 4.2 - 5.6 % Final Comment: Point of care (POC) Hemoglobin A1c (HGBA1C) testing is intended to assess glucose control and provide a management tool for patients known to have diabetes and their healthcare providers. Target HGBA1C levels may depend on specific clinical circumstances. POC HGBA1C is not intended for use as a diagnostic or screening test; laboratory-based testing should be used for diagnostic purposes. The following information is supplemental and may not be applicable to specific diabetes management situations: The POC device local combination truck driver provides a normal range of 4.2% to 6.5% for the HGBA1C POC test. However, the [place] [employer] guidelines indicate that patients with HGBA1C in the range of 5.7% to 6.4% are at increased risk for development of diabetes and that intervention by lifestyle modification may be beneficial. A HGBA1C level greater than or equal to 6.5% is considered diagnostic of diabetes, pending confirmatory testing. Use of HGBA1C testing to evaluate glucose control may not be appropriate for patients with hemoglobin variants or other conditions (e.g. anemia) that alter red blood cell lifespan. PCP: Edinson Zarate MD PAST MEDICAL HISTORY Diagnosis Date Anxiety Dr. Belle Arthritis of both hips Benign neoplasm of colon Bipolar disorder (HCC) Dr. Belle DDD (degenerative disc disease), lumbar Depressive disorder, not elsewhere classified Diverticulosis of colon (without mention of hemorrhage) HLD (hyperlipidemia) 06/13/2017 Hypertension Internal hemorrhoids without mention of complication Monoclonal paraproteinemia Morbid obesity (HCC) MARCELINA (obstructive sleep apnea) 1998 BiPAP Peripheral neuropathy Prediabetes 09/11/2019 Seasonal allergies Shoulder arthritis Systemic lupus erythematosus (HCC) 10/2021 Current Outpatient Medications Medication Sig tamsulosin (FLOMAX) 0.4 mg Take 1 capsule by mouth daily at bedtime. predniSONE (DELTASONE) 5 mg tablet Take 1 tablet by mouth twice daily. CPAP/BIPAP/OTHER Type .CPAPSettings into a note to see current settings/supplies/DME information. meloxicam (MOBIC) 15 mg tablet Take 0.5-1 tablets by mouth once daily. hydrOXYchloroQUINE (PLAQUENIL) 200 mg tablet Take 1 tablet by mouth twice daily. pregabalin (LYRICA) 225 mg capsule Take 1 capsule by mouth twice daily for 90 days. HYDROcodone-acetaminophen (NORCO) 5-325 mg per tablet Take 1 tablet by mouth every 8 hours as needed for pain. amLODIPine (NORVASC) 5 mg tablet Take 1 tablet by mouth once daily. metoprolol succinate ER (TOPROL XL) 25 mg 24 hr tablet TAKE 2 TABLETS ONCE DAILY fexofenadine (ANÍBAL) 180 mg tablet TAKE 1 TABLET DAILY fluticasone-salmeterol (ADVAIR DISKUS) 100-50 mcg/dose inhaler Inhale 1 Puff as instructed twice daily. CPAP/BIPAP/OTHER Type .CPAPSettings into a note to see current settings/supplies/DME information. alpha lipoic acid (LIPOIC ACID ORAL) Take by mouth. ZINC ORAL Take by mouth. LYSINE ORAL Take by mouth. azelastine (ASTELIN, ASTEPRO) 0.1% nasal spray Use 1 [place] in each nostril twice daily. fluticasone (FLONASE) 50 mcg/actuation nasal spray Use 2 Sprays in each nostril once daily. CPAP Continue BiPAP with new settings: @ 14/8 cm of water with humidification. No new equipment is needed. aspirin, enteric coated (ASPIRIN, ENTERIC COATED) 81 mg EC tablet Take 81 mg by mouth once daily. IRON, FERROUS SULFATE, ORAL Take by mouth once daily. ASCORBIC ACID (VITAMIN C ORAL) Take by mouth once daily. buPROPion (WELLBUTRIN) 75 mg tablet Take 150 mg by mouth twice daily. Current Facility-Administered Medications Medication Dose Route Frequency perflutren lipid microspheres 1.3 mL in NaCl (PF) 0.9% 10 mL injection (DEFINITY) INTRAVENOUS DIRECTED PRN sodium chloride 0.9 % (flush) 10 mL (BD POSIFLUSH) 10 mL INTRAVENOUS DIRECTED PRN ALLERGIES Allergen Reactions Aspartame Swelling Pt gets burning sensation under skin Betadine [Povidone-* Rash Blister Lisinopril Cough Cough Losartan Cough Niacin Other: See Comments Niacin-Dermid Burning pain all over Penicillins Rash Seasonal Allergies Other: See Comments GRASS POLLEN-positive skin test 09-05-13 Sudafed [Pseudoephe* Other: See Comments Difficulty swallowing, swelling of tongue & lips Tamiflu [Oseltamivi* Shortness of Breath SOB, arm pain Trazodone Shortness of Breath Ultram [Tramadol] Per patient contraindication due to wellbutrin PAST SURGICAL HISTORY Procedure Laterality Date ARTHROPLASTY TOTAL SHOULDER 04/03/2013 Right shoulder replacement ARTHRP ACETBLR/PROX FEM PROSTC AGRFT/ALGRFT 1992 Hip replacement, total RIGHT BACK SURGERY HX COLONOSCOPY FLX DX W/COLLJ SPEC WHEN PFRMD 08/11/1992 Colonoscopy COLONOSCOPY FLX DX W/COLLJ SPEC WHEN PFRMD 09/01/2018 Colonoscopy COLSC FLX W/RMVL OF TUMOR POLYP LESION SNARE TQ 06/26/08 ESOPHAGOGASTRODUODENOSCOPY TRANSORAL DIAGNOSTIC 05/08/2020 EGD JOINT REPLACEMENT HX PAST SURGICAL HISTORY OF 1995 L5-S1 spinal fusion with pins, rods, and bolts PAST SURGICAL HISTORY OF 03/2011 Right hip revision PAST SURGICAL HISTORY OF 1970 right shoulder surgery PAST SURGICAL HISTORY OF Left 2018 shoulder replacement Physical Exam: OBJECTIVE: Constitutional: Pt is a well developed 72 year old male who is alert, oriented, cooperative and in no apparent distress. Eyes: Following during examination. No redness or drainage. Respiratory: RR normal and nonlabored. Even breathing. No evidence of distress. Psychology: Patient is engaged during conversation. Normal affect and mood. Does not appear depressed or anxious. NVSI unchanged from previous visit. Dermatological: Nails 1-5 b/l are normal. Webspaces clean and dry 1-4 b/l. Skin appears well hydrated and supple. good color, texture, turgor. No open lesions present. No callosities present. Musculoskeletal/Orthopaedic: Patient has pain to palpation of R 2nd TMTJ and L midfoot and posterior tibial tendon. Severe pes planus b/l. ASSESSMENT: Arthritis of midfoot (primary encounter diagnosis) Posterior tibial tendon dysfunction (pttd) of both lower extremities Pes planus of both feet Lupus (hcc) PLAN: 1. History and physical examination completed today. 2. XR reviewed today-progressive arthritis on the L side. 3. AFO L ankle and custom insoles RX today. 4. RTC 3 months PRN. Viri Gonzales DPM, DABPM, FACFAS Pager: [phone] [facility] [place] [facility] locations documented in this encounter [facility] 02-02-2023 History of Present illness Narrative Radiology Service Progress Note PATIENT NAME: Zayda De La Vega DATE OF SERVICE: February 02, 2023 TIME: 12:48 PM PATIENT IDENTITY VERIFICATION COMPLETED USING TWO (2) IDENTIFIERS: Name and Date of confirmed by patient verbally. FALL SCREENING: Has the patient had 2 falls in the last year or 1 fall with injury or currently using an Ambulatory Assistive Device (Walker, Cane, Wheelchair, Crutches, etc.)? No PATIENT GENDER DATA: Male PATIENT RELEVANT IMPLANT DATA REVIEWED: Not Applicable RADIOLOGY DEPARTMENT: General X-ray: Exam(s) Completed: Lower Extremity X-Ray(s): Foot, Bilateral and Wt. Bearing PERIPHERAL IV DATA: Not applicable SIGNED BY: BERE Estrada February 02, 2023 12:48 PM documented in this encounter [facility] 01-31-2023 Miscellaneous Notes Pharmacy verified in [facility] Patient has been identified by name and date of : Yes Patient aware RX will be sent to pharmacy. No need to notify patient. Pharmacy phones for refill(s): Requested Prescriptions Pending Prescriptions Disp Refills tamsulosin (FLOMAX) 0.4 mg 90 capsule 1 Sig: Take 1 capsule by mouth daily at bedtime. Date of last office visit : 01/11/2023 Date of next office visit : 02/01/2023 Last 2 Encounter Wt Readings: Date: Wt: 01/11/2023 131.1 kg (289 lb) 09/24/2022 129.7 kg (286 lb) Not applicable Please advise. Gricelda Lloyd LPN documented in this encounter [facility] 01-25-2023 Miscellaneous Notes Received eye exam report summary for pts taking plaquenil/hydroxychloroquine from [facility] 01/25/23. Placed in provider's inbox for review. Route to MA scanning Pt is scheduling cataract surgery documented in this encounter [facility] 01-24-2023 Miscellaneous Notes When I had seen the patient in 07/24, we planned to try prednisone 5 mg bid as a trial He never did this. He would like to try now. See messages. Pat Seo MD documented in this encounter [facility] 01-11-2023 History of Present illness Narrative CHIEF COMPLAINT Patient presents with: lupus pain HISTORY OF PRESENT ILLNESS Zayda De La Vega is a 72 year old male who presents here today for evaluation of body pain. I last saw this patient on 09/03/2022. 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 If he doesn't take it then he has trouble moving around Fatigue Patient feels tired all of the time Has to take multiple naps throughout the day Uses his CPAP regularly Has started a diet since he got back from [place] a little over 1 week ago Hypertension Currently managed on amlodipine and metoprolol Adherent to regimen Had an echo done in October Health Maintenance Due for COVID booster Due for advance directive discussion Labs reviewed. Past medical history, appointments, medications, allergies reviewed. REVIEW OF SYSTEMS Pertinent positives/ negatives: General: Feels well, no fever, no chills, +obesity, +fatigue HEENT: No sinus congestion, earache, sore throat. Cardiac: No chest pain, palpitations Resp: No cough, wheeze, shortness of breath GI: No reflux symptoms, food intolerance, bowel changes. : No urinary frequency, dysuria. MS: +back pain, +hand pain, +body pain PAST MEDICAL HISTORY PAST MEDICAL HISTORY Diagnosis Date Anxiety Dr. Belle Arthritis of both hips Benign neoplasm of colon Bipolar disorder (HCC) Dr. Belle DDD (degenerative disc disease), lumbar Depressive disorder, not elsewhere classified Diverticulosis of colon (without mention of hemorrhage) HLD (hyperlipidemia) 06/13/2017 Hypertension Internal hemorrhoids without mention of complication Monoclonal paraproteinemia Morbid obesity (HCC) MARCELINA (obstructive sleep apnea) 1997 BiPAP Peripheral neuropathy Prediabetes 09/11/2019 Seasonal allergies Shoulder arthritis Systemic lupus erythematosus (HCC) 10/2021 PHYSICAL EXAMINATION BP 141/58 Pulse 60 Ht 172.1 cm (5' 7.76) Wt 131.1 kg (289 lb) SpO2 95% BMI 44.26 kg/m General: Alert, well developed, well nourished, no distress, pleasant and cooperative. Obese. Heart: Regular rate and rhythm. Normal S1 and S2. No murmurs, rubs, or gallops. Lungs: Clear to auscultation bilaterally. No respiratory distress. No wheezes, rales, or rhonchi. Abdomen: Soft, non-tender, no distention. Extremities: Feet/ankles without edema, posterior tibial pulses full and symmetrical. Data Reviewed Component Latest Ref Rng & Units 07/13/2022 08/06/2022 GLUCOSE UA (POCT) Negative mg/dL Negative BILIRUBIN UA (POCT) Negative Negative KETONE UA (POCT) Negative mg/dL Negative SPECIFIC GRAVITY UA (POCT) 1.005 - 1.030 1.020 HEMOGLOBIN/BLOOD UA (POCT) Negative Negative PH UA (POCT) 4.5 - 8.0 6.0 PROTEIN UA (POCT) Negative mg/dL Negative UROBILINOGEN UA (POCT) Normal E.U./dL 0.2 NITRITE UA (POCT) Negative Negative LEUKOCYTES UA (POCT) Negative Negative COLOR UA (POCT) Yellow CLARITY UA (POCT) Clear Platelet Neut Negative Negative DRVVT Screen 32.0 - 45.7 seconds 37.5 DRVVT Confirm Ratio <1.32 1.03 DRVVT 1:1 Mix 32.0 - 45.7 seconds 36.6 Hex Phase Screen 34.0 - 51.8 seconds 53.6 (H) Hex Phase Confirm 34.2 - 47.9 seconds 47.2 Hex Phase Delta <7.1 delta seconds 6.3 APTT Screen 24.0 - 35.1 seconds 33.7 Thrombin Time <18.6 seconds 16.8 PT Sec 9.7 - 13.0 sec 10.5 PT INR 0.9 - 1.3 1.0 WSR 0 - 15 mm/hr 10 CRP <0.9 mg/dL 0.6 TSH 0.270 - 4.200 mIU/L 1.460 DNA Antibody w/Confirmation <30 IU/mL 82.96 (H) C3 86 - 166 mg/dL 141 C4 13 - 46 mg/dL 26 APTT 23.0 - 32.4 sec 26.7 Cardiolipin Ab, IgA <12.0 APL <9.0 Cardiolipin Ab, IgG <15.0 GPL 12.6 Cardiolipin Ab, IgM <12.5 MPL 13.9 (H) Beta 2 Glycoprotein, IgG <20 SGU <9 Beta 2 Glycoprotein, IgM <20 SMU <9 Crithidia lucillae Negative Positive (A) Assessment/Plan (M15.9) Primary osteoarthritis involving multiple joints (primary encounter diagnosis) Comment: continues to have pain Plan: continue current regimen - continue to follow rheumatology Discussed importance of weight loss and effect of excess weight on his chronic conditions Patient is open to looking for online support for weight loss He has agreed to try and lose weight. Will update me via [employer] in 2 months with progress (I51.89) Grade I diastolic dysfunction Comment: noted Plan: continue current regimen RTO: will follow up via [employer] in 2 months Scribe Attestation: By signing my name below, Sara Rossi, attest that this documentation has been prepared under the direction and in the presence of Alex Zarate M.D. Electronically Signed: Celsa Montoya. January 11, 2023 12:05 PM Provider Attestation: Edinson Rossi MD, personally performed the services described in this documentation. All medical record entries made by the scribe were at my direction and in my presence. I have reviewed the chart and discharge instructions (if applicable) and agree that the record reflects my personal performance and is accurate and complete. Electronically Signed: Edinson Zarate MD January 11, 2023 5:41 PM documented in this encounter [facility] 12-29-2022 Miscellaneous Notes Spoke to Zayda Patient does not have leftovers from Dr. Zarate. He misspoke. He does have prescription left over from [place] Doctor from 11/15/22. . He has another prescription that he hasn't started to use at all (the 10/325 Alexander). Patient will be returning to [place] in approximately one week and plans to keep appointment with PCP. Zayda is calling back to say he reported the medication information incorrectly. Please call him back at [phone] Spoke to patient, has had pain with a pain level of 7/10 throughout his whole body. Patient did see a Production Checker the middle of November, Dr. Mccain, was prescribed 30 10/325 mg Alexander which he has not started to take yet, has some 5/325 mg Alexander left. When/if patient needs to start taking the 10.325 mg, he will cut them in half. Patient takes 1-2 of the 5/325 mg daily, depending on how he feels. When he takes the medication it lowers his pain level to 4/10. Will see PCP 5/2. Call patient back with any questions or concerns, patient available to speak to PCP as needed, per patient. He may not get a narcotic prescription from another physician if Dr Zarate is prescribing controlled drugs. Edinson Zarate MD Patient was receiving pain medications from [facility] He said they were out of his normal prescription so he was told to cut medication in half. Patient said he only was given medication in October and November. Your last script was written 10/07/2022- 12/23/2022 Check with patient. Did he see a pain management Dr Diaz? Pharmacy reports duplicate Rx. Please see how he happened to get the Rx. For hydrocodone 10 mg? Edinson Zarate MD Do not fill Dr Zarate's Rx. Edinson Zarate MD [facility] is calling for clarification of hydrocodone. They received a request from Dr Zarate's office for the 5-325 mg of hydrocodone. They also received a request from Dr. Audrey Mccain for 10-325 mg of hydrocodone. The pharmacy needs to know which prescription to refill. [facility] [phone] Ref# [id number] documented in this encounter [facility] 12-23-2022 Miscellaneous Notes The following approved medication requests have been transmitted electronically. Requested Prescriptions Signed Prescriptions Disp Refills meloxicam (MOBIC) 15 mg tablet 90 tablet 2 Sig: Take 0.5-1 tablets by mouth once daily. Authorizing Provider: EDINSON ZARATE hydrOXYchloroQUINE (PLAQUENIL) 200 mg tablet 180 tablet 1 Sig: Take 1 tablet by mouth twice daily. Authorizing Provider: EDINSON ZARATE pregabalin (LYRICA) 225 mg capsule 180 capsule 1 Sig: Take 1 capsule by mouth twice daily for 90 days. Authorizing Provider: EDINSON ZARATE HYDROcodone-acetaminophen (NORCO) 5-325 mg per tablet 30 tablet 0 Sig: Take 1 tablet by mouth every 8 hours as needed for pain. Authorizing Provider: EDINSON ZARATE MD Pharmacy verified in Epic Patient has been identified by name and date of : Yes Patient aware RX will be sent to pharmacy. No need to notify patient. Patient phones for refill(s): Requested Prescriptions Pending Prescriptions Disp Refills meloxicam (MOBIC) 15 mg tablet 90 tablet 2 Sig: Take 0.5-1 tablets by mouth once daily. hydrOXYchloroQUINE (PLAQUENIL) 200 mg tablet 180 tablet 1 Sig: Take 1 tablet by mouth twice daily. pregabalin (LYRICA) 225 mg capsule 180 capsule 1 Sig: Take 1 capsule by mouth twice daily for 90 days. HYDROcodone-acetaminophen (NORCO) 5-325 mg per tablet 30 tablet 0 Sig: Take 1 tablet by mouth every 8 hours as needed for pain. Date of last office visit : 09/03/2022 Date of next office visit : 12/23/2022 Last 2 Encounter Wt Readings: Date: Wt: 09/24/2022 129.7 kg (286 lb) 09/14/2022 132 kg (291 lb) Not applicable Please advise. Gricelda Lloyd LPN documented in this encounter [facility] 12-20-2022 History of Present illness Narrative POPULATION HEALTH NAVIGATION OUTREACH Action/I HCC gaps- Diagnosis with HCC gap left: E66.01 - Morbid (severe) obesity due to excess calories M32.9 - Systemic lupus erythematosus (HCC) - [id number] Last Billed 09/13/2022 F33.9 - Major depression, recurrent, chronic (HCC) - [id number] Last Billed 05/20/2022 Outcome- lvm/sent [employer] to schedule annual wellness with pcp. Last pcp visit- 09-03-22 No future appt scheduled- due for wellness Also due: AD Patient Identified by Name and : NO Outreach Outcome/Action Unable to reach patient: Left message [employer] message sent Did you use a PCP flex slot to schedule this appointment? N/A Reason for Outreach HCC or suspected condition Payer: Payor: [employer] MEDICARE / Plan: [employer] MEDICARE PPO / Product Type: PPO / Care Gap Reviewed:: Annual Wellness visit Reminder: Reminder note to check Health Maintenance for items below Health Maintenance items due: COVID-19 VACCINE(5 - Booster for Moderna series) due on 06/30/2022 ADVANCE DIRECTIVE DISCUSSION due on 10/03/2022 Navigation Signature: Gricelda Trinidad [facility] Navigator December 20, 2022 9:27 AM documented in this encounter [facility] 11-10-2022 Miscellaneous Notes Addressed in correct patient's chart. Trisha Slaughter RN Please follow-up with this patient regarding concerns about his and re-route in a new encounter in her chart. Layo Cuellar APRN.CNP Please review and advise documented in this encounter [facility] 10-28-2022 Miscellaneous Notes The following approved medication requests have been transmitted electronically. Requested Prescriptions Signed Prescriptions Disp Refills fexofenadine (ANÍBAL) 180 mg tablet 90 tablet 3 Sig: TAKE 1 TABLET DAILY Authorizing Provider: EDINSON ZARATE MD Pharmacy verified in [facility] Patient has been identified by name and date of : Yes Patient aware RX will be sent to pharmacy. No need to notify patient. Patient phones for refill(s): Requested Prescriptions Pending Prescriptions Disp Refills fexofenadine (ANÍBAL) 180 mg tablet [Pharmacy Med Name: FEXOFENADINE HCL TABS-OTC 180MG] 90 tablet 3 Sig: TAKE 1 TABLET DAILY Date of last office visit : 09/17/2020 Date of next office visit : Visit date not found Last 2 Encounter Wt Readings: Date: Wt: 09/24/2022 129.7 kg (286 lb) 09/14/2022 132 kg (291 lb) Not applicable Please advise. Sienna Inman documented in this encounter [facility] 10-28-2022 Miscellaneous Notes Pharmacy verified in [facility] Patient has been identified by name and date of : Yes Patient aware RX will be sent to pharmacy. No need to notify patient. Pharmacy phones for refill(s): Requested Prescriptions Pending Prescriptions Disp Refills metoprolol succinate ER (TOPROL XL) 25 mg 24 hr tablet [Pharmacy Med Name: METOPROLOL SUCCINATE ER TABS 25MG] 180 tablet 3 Sig: TAKE 2 TABLETS ONCE DAILY Date of last office visit : 09/03/2022 Date of next office visit : Visit date not found Last 2 Encounter Wt Readings: Date: Wt: 09/24/2022 129.7 kg (286 lb) 09/14/2022 132 kg (291 lb) Blood Pressure: BUN (mg/dL) Date Value 07/12/2022 15 07/15/2021 14 Creatinine (mg/dL) Date Value 07/12/2022 0.81 07/15/2021 0.80 Sodium (mmol/L) Date Value 07/12/2022 140 07/15/2021 135 Potassium (mmol/L) Date Value 07/12/2022 5.0 07/15/2021 4.4 Last 1 Encounter BP Readings: Date: BP: 09/14/2022 168/86 Please advise. Gricelda Lloyd LPN documented in this encounter [facility] 10-07-2022 Miscellaneous Notes The following approved medication requests have been transmitted electronically. Requested Prescriptions Signed Prescriptions Disp Refills HYDROcodone-acetaminophen (NORCO) 5-325 mg per tablet 30 tablet 0 Sig: Take 1 tablet by mouth every 8 hours as needed for pain. Authorizing Provider: EDINSON ZARATE MD documented in this encounter [facility] 09-24-2022 Procedure note Associated Ord er(s): NITRIC OXIDE, EXHALED RESPIRATORY THERAPY ORAL EXHALED NITRIC OXIDE SERVICE DATE: 09/24/2022 SERVICE TIME: 2:16 PM Oral Exhaled Nitric Oxide measurement: 33.0 (ppb) Normal: Adult 5-20 ppb, pediatric (<12 years) 5-15 ppb High Normal / Increased: Adult 20-35 ppb, pediatric (<12 years) 15-25 ppb Moderately raised exhaled Nitric Oxide may indicate underlying inflammation, but note that: Cold and influenza can raise exhaled Nitric Oxide and some patients have higher baseline exhaled Nitric Oxide levels than others. High: Adult >35 ppb, pediatric (<12 years) >25 ppb Indicative of ongoing eosinophilic inflammation. Symptomatic patient likely to respond to steroids. Possible causes (if already on steroids): Poor compliance, recent allergen exposure, steroid dose inadequate, and steroid resistance. Note that not all patients with high exhaled nitric oxide levels display symptoms. Oral Exhaled Nitric Oxide measurement (Previous Encounters) Test Date Oral Exhaled Nitric Oxide (ppb) 09/24/2022 33.0 NAME: ESTEFANY Whitaker PATIENT NAME: Zayda De La Vega DATE: September 24, 2022 TIME: 2:16 PM Associated Order(s): OXIMETRY WITH AMBULATION RESPIRATORY THERAPY OXIMETRY WITH AMBULATION Oximetry with Ambulation Test for This Encounter O2 Device O2 Adapter NC O2 Flow SpO2% HR Activity Ft Walked (ft) Time (min) Avg Speed (MPH) R/A 96 64 Resting R/A 92 97 Walking, usual pace 450 3 1.7 R/A 91 103 Walking, fastest pace 530 3 2.01 General Information Pulse Oximetry Site Total Time Spent O2 Supply Carrier Walking Assistance/Device R Index Finger -- -- -- NAME: ESTEFANY Whitaker PATIENT NAME: Zayda De La Vega DATE: September 24, 2022 TIME: 2:15 PM Comment: documented in this encounter [facility] 09-24-2022 History of Present illness Narrative PULM FUNCTION SMARTBLOCK: Provider: Loraine Holcomb MD Assisting Tech: ESTEFANY Whitaker Spirometry: 1 DLCO: 1 LV - Box: 1 Oximetry - Ambulation: 1 Exhaled Nitric Oxide: 1 MIP/MEP: 1 documented in this encounter [facility] 09-14-2022 Miscellaneous Notes Faxed order, office notes, demographics and sleep study to: DME name: [facility] fax # [phone] DME Faxed info in patient's chart. documented in this encounter [facility] 09-14-2022 Miscellaneous Notes Faxed order, office notes to: DME name: [facility] fax # [phone] DME Faxed info in patient's chart. documented in this encounter [facility] 09-14-2022 Instructions Katelyn Hamilton APRN.DISTRICT RESOURCE OFFICER - 09/14/2022 10:57 AM EST PAP Supply Guidelines Below are the guidelines for reordering your supplies. You will be responsible for your deductible, co-payments, and out of pocket expenses. Item Medicare & Commercial Insurance Medicaid & HCAP Nasal Mask (no headgear) 1 every 3 months 1 per year Nasal Mask Cushion 1 every month 2 per year Full Face Mask (no headgear) 1 every 3 months 1 per year Full Face Mask Cushion 1 every month *Self-Pay Nasal Pillows 2 every month 2 per year Headgear 1 every 6 months 1 per year Chin Strap 1 every 6 months 2 per year Tubing 1 every 3 months 1 per year Filters: Reusable 1 every 6 months 4 per year Filters: Disposable 2 every month 1 per month Humidifier Chamber(disposable) 1 every 6 months *Self-Pay documented in this encounter [facility] 09-14-2022 History of Present illness Narrative Images from the original note were not included. [facility] New Patient Evaluation PATIENT NAME: Zayda De La Vega DATE OF SERVICE: September 11, 2022 CONSULTING PROVIDER: Jacqueline Larson [address] [facility] [id number] REASON FOR CONSULT: Jacqueline Larson sends the patient for an opinion about Dx: MARCELINA (obstructive sleep apnea) [G47.33 (ICD-10-CM)]. My findings and recommendations will be transmitted electronically via shared medical record to the consulting provider. HPI: Zayda De La Vega is a 71 year old male. Sleep-related history: Diagnosed with Sleep Apnea 20 years ago by a Sleep Physician in [place]. Last study done 5-6 years ago at [facility]. Lupus doctors not happy with respirations. They wanted him fitted with an up to date mask. ResMed device 7 years old. Suffering from a lot of congestion. Usually uses Nasal Pillows. Mouth falling open. Being fitted today with a hybrid mask. Leak 44L/min. Travis. Fitted and tested with new mask. Leak now at 4-5 L/min. Compliance Report: Machine Interrogated Today in Exam Room ResMed AirCurve 10 IPAP 15.0 EPAP 11.0 Ramp 20 minutes, starts at 5.0 cmH20. Humidity level 3. Usage 30/30 days (100%) >= 4 hours - (100%) Average # hours nights used - 8.1 hours Pressure 90th % - IPAP 15.0/EPAP 10.9 Average time in large leak per day - 44 L/min Residual AHI - 0.4 SLEEP-WAKE SCHEDULE He is a self-described night person. Bedtime: midnight. He has a hard time falling asleep. Time to fall asleep: 0200. Struggling to keep his sinuses clear. Follows up with an good ENT physician in [place]. Wake time: 1000, without an alarm. After falling asleep: he wakes up 2 time(s) per night, because of the need to urinate. On weekends, he maintains the same sleep schedule. Average total sleep time (in a 24 hour period): 6 hours. SLEEP-RELATED DETAILS Preferred sleep position: side or back Prior to the PAP machine, breathing disturbances and other behaviors during sleep: snoring, stopping breathing during sleep, moving around a lot, and waking up with severe am headaches. With PAP therapy, breathing disturbances and other behaviors during sleep: frequent awakenings to void. Bruxism: Yes GERD or aspiration: No Waking up with heart pounding or racing: No Anxiety or rumination: No He does not report having an urge to move the legs in the evening (when resting) that is accompanied or caused by uncomfortable and/or unpleasant sensations in the legs. He has not been told that he has leg kicking during sleep. He denies any history of parasomnias. Daytime sleepiness is not a problem. Reports he falls asleep quickly and dreams come on quickly. Quite vivid. He does not report sleep paralysis or sleep-related hallucinations or cataplexy . WAKE-RELATED DETAILS He does not work. Retired. He does not have difficulty with memory or concentration. 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 He denies falling asleep or dozing off when driving. He does not take naps. He does drink (4) 1/2 caffeinated beverages per day. There has not been a recent change in weight. Patient Questionnaires Sleep Scores PROMIS CAT Sleep Disturbance 03/10/2021 05/25/2021 PROMIS Sleep Disturbance T-Score 63 (moderate) 58 (mild) PHQ-9 03/10/2021 05/25/2021 02/22/2022 Score 7 5 9 PROMIS Global Health - (T-Scores - the mean of general population = 50. Five points is a clinically meaningful difference.) 02/22/2022 05/16/2022 07/10/2022 Physical T-Score 34.9 - 29.6 Mental T-Score 38.8 38.8 36.3 PAST TREATMENTS: None PRIOR SLEEP STUDIES: None OTHER RELEVANT LABS AND STUDIES: Ferritin Date Value Ref Range Status 12/08/2018 111.2 30.3 - 565.7 ng/mL Final Transferrin Saturation Date Value Ref Range Status 12/08/2018 26 15 - 57 % Final Hemoglobin Date Value Ref Range Status 07/12/2022 13.2 13.0 - 17.0 g/dL Final 05/20/2022 13.0 13.0 - 17.0 g/dL Final Iron Date Value Ref Range Status 12/08/2018 79 41 - 186 ug/dL Final TIBC Date Value Ref Range Status 12/08/2018 309 232 - 386 ug/dL Final PAST MEDICAL HISTORY Diagnosis Date Anxiety Dr. Belle Arthritis of both hips Benign neoplasm of colon Bipolar disorder (HCC) Dr. Belle DDD (degenerative disc disease), lumbar Depressive disorder, not elsewhere classified Diverticulosis of colon (without mention of hemorrhage) HLD (hyperlipidemia) 06/13/2017 Hypertension Internal hemorrhoids without mention of complication Monoclonal paraproteinemia Morbid obesity (HCC) MARCELINA (obstructive sleep apnea) 1997 BiPAP Peripheral neuropathy Prediabetes 09/11/2019 Seasonal allergies Shoulder arthritis Systemic lupus erythematosus (HCC) 10/2021 PAST SURGICAL HISTORY Procedure Laterality Date ARTHROPLASTY TOTAL SHOULDER 04/03/2013 Right shoulder replacement ARTHRP ACETBLR/PROX FEM PROSTC AGRFT/ALGRFT 1992 Hip replacement, total RIGHT BACK SURGERY HX COLONOSCOPY FLX DX W/COLLJ SPEC WHEN PFRMD 08/11/1992 Colonoscopy COLONOSCOPY FLX DX W/COLLJ SPEC WHEN PFRMD 09/01/2018 Colonoscopy COLSC FLX W/RMVL OF TUMOR POLYP LESION SNARE TQ 06/26/08 ESOPHAGOGASTRODUODENOSCOPY TRANSORAL DIAGNOSTIC 05/08/2020 EGD JOINT REPLACEMENT HX PAST SURGICAL HISTORY OF 1995 L5-S1 spinal fusion with pins, rods, and bolts PAST SURGICAL HISTORY OF 03/2011 Right hip revision PAST SURGICAL HISTORY OF 1970 right shoulder surgery PAST SURGICAL HISTORY OF Left 2018 shoulder replacement ACTIVE PROBLEM LIST Thoracic Or Lumbosacral Neuritis Or Radiculitis, Unspecified Congenital Spondylolisthesis Essential Hypertension, Benign Other Seborrheic Keratosis Monoclonal Paraproteinemia Benign Neoplasm of Colon Diverticulosis of Colon (Without Mention of Hemorrhage) Internal Hemorrhoids Without Mention of Complication Hip Replacement Anemia Anxiety Shoulder Pain Adhesive Capsulitis of Shoulder Shoulder Arthritis Rotator Cuff Strain Ulnar Neuritis Primary Localized Osteoarthrosis of Shoulder Region Abnormality of Gait Shoulder Joint Replacement Status Pes Planus of Both Feet Arthritis, Midfoot Glenohumeral Arthritis Obstructive Sleep Apnea On Cpap Major Depression, Recurrent, Chronic ([facility]) Hld (Hyperlipidemia) Left Shoulder Pain Prediabetes Morbid Obesity With Body Mass Index (Bmi) of 40.0 to 44.9 in Adult (Hcc) Gerd Without Esophagitis Food Allergy History of Lumbosacral Spine Surgery Numbness and Tingling of Foot Muscle Weakness Primary Osteoarthritis Involving Multiple Joints Bph With Obstruction/Lower Urinary Tract Symptoms Systemic Lupus Erythematosus (Hcc) Allergies As of Date: 09/14/2022 Allergen Noted Reaction ASPARTAME 03/06/2011 Swelling BETADINE [POVIDONE-IODINE] 04/09/2013 Rash LISINOPRIL 01/14/2022 Cough LOSARTAN 09/09/2021 Cough NIACIN 01/18/2011 Other: See Comments PENICILLINS 12/10/2003 Rash SEASONAL ALLERGIES 09/05/2013 Other: See Comments SUDAFED [PSEUDOEPHEDRINE HCL] 01/18/2011 Other: See Comments TAMIFLU [OSELTAMIVIR PHOSPHATE] 02/11/2014 Shortness of Breath TRAZODONE 03/05/2020 Shortness of Breath ULTRAM [TRAMADOL] 03/21/2013 Fully Assessed 09/14/2022 CURRENT MEDICATIONS: alpha lipoic acid (LIPOIC ACID ORAL)^Take by mouth.^Disp: ^Rfl: ZINC ORAL^Take by mouth.^Disp: ^Rfl: LYSINE ORAL^Take by mouth.^Disp: ^Rfl: amLODIPine (NORVASC) 5 mg tablet^Take 1 tablet by mouth once daily.^Disp: 90 tablet^Rfl: 0 albuterol HFA (PROVENTIL HFA, VENTOLIN HFA) 90 mcg/actuation inhaler^Inhale 2 Puffs as instructed every 6 hours as needed for wheezing/shortness of breath.^Disp: 18 g^Rfl: 0 HYDROcodone-acetaminophen (NORCO) 5-325 mg per tablet^Take 1 tablet by mouth every 8 hours as needed for pain.^Disp: 30 tablet^Rfl: 0 nystatin-triamcinolone (MYCOLOG) ointment^Apply to affected area as directed.^Disp: 30 g^Rfl: 1 nystatin (NYSTOP) powder^Apply 1 application to affected area four times daily.^Disp: 60 g^Rfl: 2 azelastine (ASTELIN, ASTEPRO) 0.1% nasal spray^Use 1 [place] in each nostril twice daily.^Disp: 30 mL^Rfl: 5 hydrOXYchloroQUINE (PLAQUENIL) 200 mg tablet^Take 1 tablet by mouth twice daily.^Disp: 180 tablet^Rfl: 1 pregabalin (LYRICA) 225 mg capsule^Take 1 capsule by mouth twice daily for 90 days.^Disp: 180 capsule^Rfl: 1 metoprolol succinate ER (TOPROL XL) 25 mg 24 hr tablet^Take 2 tablets by mouth once daily.^Disp: 180 tablet^Rfl: 0 fluticasone (FLONASE) 50 mcg/actuation nasal spray^Use 2 Sprays in each nostril once daily.^Disp: 1 Each^Rfl: 5 tamsulosin (FLOMAX) 0.4 mg^Take 1 capsule by mouth daily at bedtime.^Disp: 90 capsule^Rfl: 1 fexofenadine (ANÍBAL ALLERGY) 180 mg tablet^Take 1 tablet by mouth once daily.^Disp: 90 tablet^Rfl: 1 zolpidem (AMBIEN) 10 mg^Take by mouth at bedtime as needed.^Disp: ^Rfl: meloxicam (MOBIC) 15 mg tablet^Take 0.5-1 tablets by mouth once daily.^Disp: 90 tablet^Rfl: 2 CPAP^Continue BiPAP with new settings: @ 14/8 cm of water with humidification. No new equipment is needed.^Disp: 1 Device^Rfl: 0 aspirin, enteric coated (ASPIRIN, ENTERIC COATED) 81 mg EC tablet^Take 81 mg by mouth once daily.^Disp: ^Rfl: IRON, FERROUS SULFATE, ORAL^Take by mouth once daily.^Disp: ^Rfl: ASCORBIC ACID (VITAMIN C ORAL)^Take by mouth once daily.^Disp: ^Rfl: buPROPion (WELLBUTRIN) 75 mg tablet^Take 150 mg by mouth twice daily. ^Disp: ^Rfl: LORazepam 1 mg ORAL tablet^Take 1 mg by mouth every 6 hours as needed.^Disp: ^Rfl: CPAP/BIPAP/OTHER^Type .CPAPSettings into a note to see current settings/supplies/DME information.^Disp: 1 Each^Rfl: 0 semaglutide (OZEMPIC) 0.25 mg or 0.5 mg(2 mg/1.5 mL) pen^Inject 0.25 mg subcutaneously one time a week.^Disp: 1 mL^Rfl: 2 (Patient not taking: No sig reported) Prior Hypersomnia/Narcolepsy Medications (20 years) Some values may be hidden. Unless noted otherwise, only the newest values recorded on each date are displayed. Hypersomnia/Narcolepsy Medications No data to display. Prior RLS Medications (last 20 years) Some values may be hidden. Unless noted otherwise, only the newest values recorded on each date are displayed. RLS Medications acetaminophen 500 mg - hydrocodone 5 mg tablet (VICODIN) Dose: 1 tablet EVERY 3 HOURS NEEDED No more than 4000 mg of acetaminophen should be given per day (FROM ALL SOURCES) Starting date: 03/09/2011 Ending date: 03/11/2011 (Discontinued) acetaminophen 500 mg - hydrocodone 5 mg tablet (VICODIN) Dose: 1-2 tablet EVERY 4 HOURS NEEDED No more than 4000 mg of acetaminophen should be given per day (FROM ALL SOURCES) Starting date: 03/11/2011 Ending date: 03/12/2011 (Discontinued) acetaminophen-hydrocodone 5-500 mg ORAL per tablet Dose: 1 tablet EVERY 4 HOURS NEEDED Starting date: 03/11/2011 Ending date: 05/28/2011 (Discontinued) acetaminophen-HYDROcodone 5-500 mg tablet Dose: 1 tablet EVERY 6 HOURS NEEDED Starting date: 08/03/2012 Ending date: 09/18/2012 (Discontinued) acetaminophen-HYDROcodone 5-500 mg tablet Dose: 1 tablet EVERY 6 HOURS NEEDED Starting date: 09/18/2012 Ending date: 01/31/2013 (Discontinued) acetaminophen-HYDROcodone 5-500 mg tablet Dose: 1 tablet EVERY 6 HOURS NEEDED Starting date: 11/14/2012 Ending date: 12/04/2012 (Discontinued) acetaminophen-HYDROcodone 5-500 mg tablet Dose: 1 tablet EVERY 6 HOURS NEEDED Starting date: 12/04/2012 Ending date: 01/31/2013 (Discontinued) HYDROcodone 5 mg - acetaminophen 325 mg tablet (NORCO) Dose: 1-2 tablet EVERY 4 HOURS NEEDED Starting date: 06/22/2017 Ending date: 06/22/2017 (Discontinued) HYDROcodone-acetaminophen 5-325 mg per tablet Dose: 1-2 tablet EVERY 6 HOURS NEEDED Starting date: 11/28/2013 Ending date: 12/04/2013 (Discontinued) HYDROcodone-acetaminophen (NORCO) 5-325 mg per tablet Dose: 1-2 tablet EVERY 4 HOURS NEEDED Starting date: 06/22/2017 Ending date: 07/04/2017 (Discontinued) HYDROcodone-acetaminophen (NORCO) 5-325 mg per tablet Dose: 1-2 tablet EVERY 6 HOURS NEEDED Starting date: 07/04/2017 Ending date: 07/18/2017 (Discontinued) HYDROcodone-acetaminophen (NORCO) 5-325 mg per tablet Dose: 1 tablet EVERY 8 HOURS NEEDED Starting date: 04/15/2021 Ending date: 07/20/2021 (Discontinued) HYDROcodone-acetaminophen (NORCO) 5-325 mg per tablet Dose: 1 tablet EVERY 8 HOURS NEEDED Starting date: 07/20/2021 Ending date: 09/23/2021 (Discontinued) HYDROcodone-acetaminophen (NORCO) 5-325 mg per tablet Dose: 1 tablet EVERY 8 HOURS NEEDED Starting date: 09/23/2021 Ending date: 11/19/2021 (Discontinued) HYDROcodone-acetaminophen (NORCO) 5-325 mg per tablet Dose: 1 tablet EVERY 8 HOURS NEEDED Starting date: 11/19/2021 Ending date: 02/14/2022 (Discontinued) HYDROcodone-acetaminophen (NORCO) 5-325 mg per tablet Dose: 1 tablet EVERY 8 HOURS NEEDED Starting date: 02/15/2022 Ending date: 03/12/2022 (Discontinued) HYDROcodone-acetaminophen (NORCO) 5-325 mg per tablet Dose: 1 tablet EVERY 8 HOURS NEEDED Starting date: 03/12/2022 Ending date: 05/20/2022 (Discontinued) HYDROcodone-acetaminophen (NORCO) 5-325 mg per tablet Dose: 1 tablet EVERY 8 HOURS NEEDED Starting date: 05/20/2022 Ending date: 07/01/2022 (Discontinued) HYDROcodone-acetaminophen (NORCO) 5-325 mg per tablet Dose: 1 tablet EVERY 8 HOURS NEEDED Starting date: 07/01/2022 Ending date: 08/09/2022 (Discontinued) HYDROcodone-acetaminophen (NORCO) 5-325 mg per tablet Dose: 1 tablet EVERY 8 HOURS NEEDED Starting date: 08/10/2022 (active) HYDROmorphone 0.4 mg injection (DILAUDID) Dose: 0.4 mg EVERY 4 HOURS NEEDED Caution: Hydromorphone is 5 - 7 times MORE POTENT than morphine. For example: Hydromorphone 1mg IV = morphine 7mg IV Starting date: 06/21/2017 Ending date: 06/22/2017 (Discontinued) HYDROmorphone 0.5 mg injection (DILAUDID) Dose: 0.5 mg EVERY 3 HOURS NEEDED Caution: Hydromorphone is 5 - 7 times MORE POTENT than morphine. For example: Hydromorphone 1mg IV = morphine 7mg IV Starting date: 04/03/2013 Ending date: 04/04/2013 (Discontinued) HYDROmorphone 2 mg tab(s) (DILAUDID) Dose: 2 mg EVERY 2 HOURS NEEDED hold if drowsy Starting date: 03/05/2011 Ending date: 03/08/2011 (Discontinued) HYDROmorphone 2 mg tab(s) (DILAUDID) Dose: 2 mg EVERY 2 HOURS NEEDED Starting date: 03/08/2011 Ending date: 03/09/2011 (Discontinued) HYDROmorphone (HYDROMORPHONE) 2 mg tablet Dose: 2 mg EVERY 4 HOURS NEEDED Starting date: 04/04/2013 Ending date: 04/05/2013 (Discontinued) meperidine (PF) 12.5 mg injection (DEMEROL) Dose: 12.5 mg X (PACU ONLY) PRN for shivering May Repeat 12.5 mg in 10 minutes X1 for Continued Shivering Starting date: 04/03/2013 Ending date: 04/03/2013 (Discontinued) oxyCODONE immediate release 5-10 mg tab(s) (PERCOLONE) Dose: 5-10 mg EVERY 4 HOURS NEEDED alternate with Percocet Starting date: 03/05/2011 Ending date: 03/08/2011 (Discontinued) oxyCODONE immediate release 5 mg tab(s) (PERCOLONE) Dose: 5 mg EVERY 3 HOURS NEEDED Starting date: 04/03/2013 Ending date: 04/05/2013 (Discontinued) oxyCODONE immediate release 5 mg immediate release tablet Dose: 5 mg EVERY 3 HOURS NEEDED Starting date: 04/05/2013 Ending date: 05/04/2013 (Discontinued) traMADOL (ULTRAM) 50 mg ORAL tablet Dose: 50 mg EVERY 8 HOURS NEEDED Starting date: 02/04/2012 Ending date: 05/02/2012 (Discontinued) traMADOL (ULTRAM) 50 mg tablet Dose: 50-100 mg EVERY 6 HOURS NEEDED Starting date: 05/02/2012 Ending date: 07/10/2012 (Discontinued) traMADOL (ULTRAM) 50 mg tablet Dose: 50-100 mg EVERY 6 HOURS NEEDED Starting date: 07/10/2012 Ending date: 08/03/2012 (Discontinued) traMADol (ULTRAM) 50 mg tablet Dose: 50 mg EVERY 6 HOURS NEEDED Starting date: 07/02/2016 Ending date: 06/13/2017 (Discontinued) TRAMADOL HCL (TRAMADOL ORAL) Dose: Take by mouth. Starting date: Ending date: 05/02/2012 (Discontinued) Prior Insomnia Medications (last 20 years) Some values may be hidden. Unless noted otherwise, only the newest values recorded on each date are displayed. Insomnia Medications ATIVAN 1MG TABLET Dose: Take one(1) tablet daily. Starting date: 12/10/2003 Ending date: 06/23/2006 (Discontinued) LORazepam 1 mg tab(s) (ATIVAN) Dose: 1 mg EVERY 6 HOURS NEEDED Starting date: 03/05/2011 Ending date: 03/08/2011 (Discontinued) LORazepam 1 mg tab(s) (ATIVAN) Dose: 1 mg EVERY 6 HOURS NEEDED Starting date: 03/08/2011 Ending date: 03/12/2011 (Discontinued) LORazepam 1 mg tab(s) (ATIVAN) Dose: 1 mg EVERY 6 HOURS NEEDED Starting date: 04/03/2013 Ending date: 04/05/2013 (Discontinued) LORazepam 1 mg tab(s) (ATIVAN) Dose: 1 mg EVERY 6 HOURS NEEDED Starting date: 06/21/2017 Ending date: 06/21/2017 (Discontinued) LORazepam 1 mg tab(s) (ATIVAN) Dose: 1 mg 3 TIMES DAILY Give doses at 2pm, 6pm and 8pm daily per pt therapist orders Starting date: 06/21/2017 Ending date: 06/22/2017 (Discontinued) LORazepam 1 mg tab(s) (ATIVAN) Dose: 1 mg ONCE Starting date: 06/22/2017 Ending date: 06/22/2017 LORAZEPAM 1 MG TAB Dose: Take one(1) tablet daily. Starting date: 03/27/2008 Ending date: 01/18/2011 (Discontinued) LORazepam 1 mg ORAL tablet Dose: 1 mg EVERY 6 HOURS NEEDED (Patient taking differently:, Patient not taking as of 05/20/2022 10:39 AM, Patient not taking as of 04/19/2022 1:33 PM) Starting date: (active) melatonin 3 mg tab(s) Dose: 3 mg AT BEDTIME Starting date: 06/22/2017 Ending date: 06/22/2017 (Discontinued) midazolam (PF) 2 mg injection (VERSED) Dose: 2 mg PRE-OP ONCE Starting date: 06/21/2017 Ending date: 06/21/2017 midazolam (PF) injection (VERSED) Dose: Starting date: 05/08/2020 Ending date: 05/08/2020 (Discontinued) midazolam 2 mg injection (VERSED) Dose: 2 mg ONCE Give Prior to OR Starting date: 04/03/2013 Ending date: 04/03/2013 ramelteon (ROZEREM) 8 mg tablet Dose: 8 mg AT BEDTIME (Patient has taken differently: Taking as prescribed as of 08/17/2018 2:04 PM, Patient not taking as of 08/07/2018 2:40 PM) Starting date: 06/15/2018 Ending date: 11/30/2018 (Discontinued) RISPERDAL 1MG TABLET Dose: Take one(1) tablet daily. Starting date: 12/10/2003 Ending date: 04/12/2008 (Discontinued) risperidone 1 mg tab(s) (RISPERDAL) Dose: 1 mg AT BEDTIME Starting date: 03/08/2011 Ending date: 03/12/2011 (Discontinued) RISPERIDONE 1 MG TAB Dose: one tab daily Starting date: 06/26/2008 Ending date: 10/22/2014 (Discontinued) risperidone 1 mg tab(s) (RISPERDAL) Dose: 1 mg AT BEDTIME Starting date: 03/05/2011 Ending date: 03/08/2011 (Discontinued) risperiDONE 1 mg tab(s) (RisperDAL) Dose: 1 mg AT BEDTIME Starting date: 04/03/2013 Ending date: 04/05/2013 (Discontinued) traZODone (DESYREL) 50 mg tablet Dose: 50 mg AT BEDTIME Starting date: 06/21/2018 Ending date: 04/16/2021 (Discontinued) zolpidem (AMBIEN) 10 mg ORAL Tab Dose: 10 mg AT BEDTIME NEEDED sleep for insomnia. Starting date: 07/21/2011 Ending date: 12/08/2011 (Discontinued) zolpidem (AMBIEN) 10 mg ORAL Tab Dose: 10 mg AT BEDTIME NEEDED sleep for insomnia. Starting date: 12/08/2011 Ending date: 06/21/2012 (Discontinued) zolpidem (AMBIEN) 10 mg Tab Dose: 10 mg AT BEDTIME NEEDED sleep for insomnia. Starting date: 06/21/2012 Ending date: 01/31/2013 (Discontinued) zolpidem (AMBIEN) 10 mg Tab Dose: 10 mg AT BEDTIME NEEDED sleep for insomnia. Starting date: 01/31/2013 Ending date: 08/20/2013 (Discontinued) zolpidem (AMBIEN) 10 mg tab Dose: 10 mg AT BEDTIME NEEDED sleep for insomnia. Starting date: 08/20/2013 Ending date: 06/12/2014 (Discontinued) zolpidem (AMBIEN) 10 mg tab Dose: 10 mg AT BEDTIME NEEDED sleep for insomnia. Starting date: 06/12/2014 Ending date: 10/16/2014 (Discontinued) zolpidem (AMBIEN) 10 mg tab Dose: 10 mg AT BEDTIME NEEDED sleep for insomnia. Starting date: 10/16/2014 Ending date: 04/16/2015 (Discontinued) zolpidem (AMBIEN) 10 mg tab Dose: 10 mg AT BEDTIME NEEDED sleep for insomnia. Starting date: 08/20/2015 Ending date: 09/23/2016 (Discontinued) zolpidem (AMBIEN) 10 mg tab Dose: 10 mg AT BEDTIME NEEDED sleep for insomnia. Starting date: 09/23/2016 Ending date: 06/13/2017 (Discontinued) zolpidem (AMBIEN) 10 mg tab Dose: 10 mg AT BEDTIME NEEDED sleep for insomnia. Starting date: 06/07/2018 Ending date: 06/15/2018 (Discontinued) zolpidem (AMBIEN) 10 mg Dose: Take by mouth at bedtime as needed. Starting date: 01/18/2022 (active) zolpidem 5-10 mg tab(s) (AMBIEN) Dose: 5-10 mg AT BEDTIME NEEDED Starting date: 03/05/2011 Ending date: 03/08/2011 (Discontinued) zolpidem 10 mg tab(s) (AMBIEN) Dose: 10 mg AT BEDTIME NEEDED sleep Starting date: 04/03/2013 Ending date: 04/05/2013 (Discontinued) Review of Systems HENT: Positive for congestion. Respiratory: Negative. Cardiovascular: Negative. Genitourinary: Positive for nocturia. Neurological: Positive for memory loss. SOCIAL HISTORY: Social History Tobacco Use Smoking status: Former Packs/day: 1.00 Years: 10.00 Pack years: 10.00 Types: Cigarettes Quit date: 10/27/1983 Years since quittin.9 Smokeless tobacco: Never Vaping Use Vaping Use: Never used Substance Use Topics Alcohol use: Yes Comment: very rarely Drug use: No FAMILY HISTORY: FAMILY HISTORY Problem Relation Age of Onset Cancer Mother skin Cancer Father KIDNEY other (Brain Tumor) Father Cancer Sister thyroid No Known Problems Brother There is a family history of: Sleep apnea. Relative: Brother PHYSICAL EXAMINATION: Vital Signs: BP 168/86 (BP Site: Left Arm, BP Position: Sitting, BP Cuff Size: Large Adult) Pulse 62 Temp 36 C (96.8 F) Resp 20 Ht 172.7 cm (5' 8) Wt 132 kg (291 lb) SpO2 96% BMI 44.25 kg/m PHYSICAL EXAM: Constitutional: Appearance: Well groomed. Well nourished male. Very pleasant. Cardiovascular: Heart sounds: Normal heart sounds. Regular S1 and S2. Rate and Rhythm: Normal rate and regular rhythm. Neck circumference: 19.25 inches Respiratory: General: Lungs clear to auscultation. Vision: Eyes: Normal. ENT : Nasal congestion present, Nasal valve incompetence absent. Posterior airspace: Sexton tongue position 3, retrognathia present. Overbite absent. High arched palate present. Tongue scalloping/ridging absent. Uvula: normal Abdominal: General: Soft nontender, [id number] Skin: General: Skin is warm, dry, intact. Extremities: General: No dependent edema. Neurological: General: No focal deficit present. Mental Status: A&OX3 (person, place, and time). Speech: Clear, projects well. Memory: Intact, responses appropriate. Psychiatric: Mood and Affect: Mood normal. Behavior: Behavior normal IMPRESSION/PLAN: Diagnosis: G47.33, Z99.89 Obstructive sleep apnea on CPAP (primary encounter diagnosis) I10 Essential hypertension, benign G47.33 MARCELINA (obstructive sleep apnea) Sleep Studies (Reviewed Prior and Current): None Overview: Mr. Zayda De La Vega is a 71 year old male with a PMH of Numbness and Tingling, Ulnar Neuritis, Essential HTN, HPL, MARCELINA on PAP, GERD, BPH, Anemia, Major Depression, Anxiety, Morbid Obesitywho presents in person for Dx: MARCELINA (obstructive sleep apnea) [G47.33 (ICD-10-CM)]. Diagnosed with Sleep Apnea 20 years ago by a Sleep Physician in [place]. Last study done 5-6 years ago at [facility]. Lupus doctors not happy with respirations. They wanted him fitted with an up to date mask. ResMed device 7 years old. Suffering from a lot of congestion. Usually uses Nasal Pillows. Mouth falling open. Being fitted today with a hybrid mask. Leak 44L/min. Travis. Fitted and tested with new mask. Leak now at 4-5 L/min. Compliance Report: Machine Interrogated Today in Exam Room ResMed AirCurve 10 IPAP 15.0 EPAP 11.0 Ramp 20 minutes, starts at 5.0 cmH20. Humidity level 3. Usage / days (100%) >= 4 hours - (100%) Average # hours nights used - 8.1 hours Pressure 90th % - IPAP 15.0/EPAP 10.9 Average time in large leak per day - 44 L/min Residual AHI - 0.4 - Doing well with PAP therapy. - Denies pressure intolerance. - Reports difficulty with Nasal Pillows. - Patient being fitted and tested with a new mask today. - Compliant and benefiting from treatment. - Face to face examination completed 09/14/22 - Mr. Zayda Adams has fulfilled his insurance requirement by following up with a new patient visit, average usage is 8 hours 1 minutes, and compliancy of 100 %. Plan: - Continue Bilevel PAP at 15/11 cmH2O. Consider getting a new PAP device in the future. - Given sample mask Pily Full Large to take home today. - Diana ([facility]) - Will send Diana new script for new supplies. - Will try to get prior Sleep Studies from [facility]. - Remember to clean your mask and equipment regularly, as directed. - You should be eligible for new supplies approximately every 3-6 months, depending on your insurance coverage. Contact your [employer] company for new supplies as needed. - Follow up in late Spring 2022 with Sleep [facility]. If you have questions, feel free to send me a [employer] message. I spent a total of 60 minutes as this was a new patient to me on the date of the service which included preparing to see the patient, [id number] patient care, completing clinical documentation, counseling and educating the patient/family/caregiver and ordering medications, tests, or procedures. Katelyn Hamilton APRN.EDOUARD documented in this encounter [facility] 09-13-2022 History of Present illness Narrative Images from the original note were not included. . Respiratory [place] Note Patient name: Zayda De La Vega PCP: Edinson Zarate MD Referring Physician: Pat Seo MD Consultation requested by Dr. Seo for an opinion regarding possible lupus lung. My final recommendations will be communicated back to the requesting physician by way of shared Medical record or letter to requesting physician via US mail. CC: MONACO HPI: Zayda De La Vega 71 year old morbidly obese male former 10 pack year smoker with PMH significant for depression, HLD, HTN, MARCELINA on BiPAP, new diagnosis of SLE October of this past year started on Plaquenil and recent COVID infection 08/30/2022. No antiviral treatment but required supplemental oxygen, SPO2 88%. Chest x-ray at that time showed atelectasis left lower lobe. He states that he has had dyspnea on exertion more noticeable in the past year. Patient has known morbid obesity but claims that his weight has been around 290 pounds for years. He has noted more shortness of breath climbing stairs or if he is hurrying. His dyspnea has been worse since his COVID infection. Main symptoms with his COVID infection included low-grade fever, fatigue and mainly nasal congestion. Although he was discharged from the ED with supplemental oxygen, he states he has been using it. Self monitored SPO2's 90 to 94%. No severe coughing except for when he first lies flat when retiring for bedtime has a history of acid reflux in the past for which he used Tums and at one point was on famotidine. He has noted faint and expiratory wheeze on occasion. No prior history of asthma or COPD. No significant chest pain. No orthopnea. CT of his chest does not show any significant nerve lung disease, he does have curvilinear atelectasis/scar in his lingula. He has had significant pneumonia in the past. He has a long history of nasal congestion/sinus disease related to seasonal allergies although more recently since his COVID infection he has had persistent nasal congestion interfering with use of his BiPAP. He has been using Astepro, Flonase OTC antihistamines and occasional decongestion without relief. DME: [employer] DATA: Labs: Component Ref Range & Units 2 mo ago (07/13/22) 6 mo ago (03/09/22) 11 mo ago (10/06/21) DNA Antibody w/Confirmation <30 IU/mL 82.96 High 51.52 High CM 79 High Imaging / Diagnostic Studies: DATE OF EXAM: Aug 13 2022 2:01PM [facility] [id number] - CT CHEST WO IVCON / CLINICAL HISTORY: 71-year-old man with an abnormal chest radiograph and elevated ds DNA. CT chest to evaluated for potential interstitial lung disease. Comparison: Type of study and date/time RESULT: Limitations: Metallic artifacts from right shoulder arthroplasty hardware. Lines, tubes, and devices: None. Lung parenchyma and airways: Both lungs are relatively well-inflated without any focal airspace consolidations. There are scattered curvilinear opacities suggestive of atelectasis/mild scarring in the bilateral posterior lung bases and inferior lingula. No evidence of substantial architectural distortion, peripheral subpleural coarse reticulations, traction bronchiectasis, or honeycombing. A 4 mm calcified granuloma is seen in the right middle lobe (image 159). There is a 2 mm noncalcified nodule in the right upper lobe (image 141). Mild patchy air trapping noted on dynamic free breathing images in both lungs. The trachea and major bronchi are patent. Pleural space: No pleural effusion. No pleural thickening. Lower neck, lymph nodes, and mediastinum: There is mild retrosternal extension of the left thyroid lobe. No supraclavicular lymphadenopathy. No axillary lymphadenopathy. No mediastinal or hilar lymphadenopathy. Heart, pericardium, and thoracic vessels: Minimal aortic valve calcifications. The thoracic aorta is normal in course, caliber and contour. Conventional branching pattern of the aortic arch. The main pulmonary artery is mildly dilated and measures 3.2 cm in diameter, which may be associated with increased pulmonary artery pressures. There are mild coronary calcifications, although the present scan is not optimized for coronary assessment. The cardiac chambers are normal in size. No pericardial effusion. Bones and soft tissues: No destructive bone lesion. Endplate degenerative changes and mildly prominent marginal osteophytes across multiple levels in the thoracic spine. As previously stated, there is evidence of right shoulder arthroplasty; left shoulder arthroplasty was noted on chest radiograph from 07/13/2022, although excluded from [id number] on the current scan. Chest wall is unremarkable. Upper abdomen: No abnormality in the imaged upper abdomen aside from suspected mild hepatic steatosis. Gun Synchronizer (topogram) images: Fixation hardware in the lower lumbar spine and femoral arthroplasty hardware noted on the graining press operator view. IMPRESSION: No convincing CT evidence of fibrotic interstitial lung disease. Specifically, no architectural distortion, subpleural coarse reticulations, traction bronchiectasis or honeycombing. Mild patchy air trapping in both lungs. Mild curvilinear atelectasis/scarring noted in the bilateral lower lobes and inferior lingula. No airspace consolidations. A 2 mm right upper lobe nodule is nonspecific though likely benign. If patient has substantial risk factors such as history of smoking, consider a follow-up CT in 12 months. Mildly dilated main pulmonary artery, which is a nonspecific finding and may be associated with increased pulmonary artery pressures. Suspect mild hepatic steatosis. I personally reviewed the images as well as with the patient and his who accompanied him today which shows curvilinear atelectasis in the lingula Right lower lobe. No groundglass densities, reticulations Reviewed CXR from [facility] when ill with COVID which shows poor inspiratory effort and nodular RLL infiltrate PAST MEDICAL HISTORY Diagnosis Date Anxiety Dr. Belle Arthritis of both hips Benign neoplasm of colon Bipolar disorder (HCC) Dr. Belle DDD (degenerative disc disease), lumbar Depressive disorder, not elsewhere classified Diverticulosis of colon (without mention of hemorrhage) HLD (hyperlipidemia) 06/13/2017 Hypertension Internal hemorrhoids without mention of complication Monoclonal paraproteinemia Morbid obesity (HCC) MARCELINA (obstructive sleep apnea) 1998 BiPAP Peripheral neuropathy Prediabetes 09/11/2019 Seasonal allergies Shoulder arthritis Systemic lupus erythematosus (HCC) 10/2021 ALLERGIES Allergen Reactions Aspartame Swelling Pt gets burning sensation under skin Betadine [Povidone-* Rash Blister Lisinopril Cough Cough Losartan Cough Niacin Other: See Comments Niacin-Dermid Burning pain all over Penicillins Rash Seasonal Allergies Other: See Comments GRASS POLLEN-positive skin test 09-05-13 Sudafed [Pseudoephe* Other: See Comments Difficulty swallowing, swelling of tongue & lips Tamiflu [Oseltamivi* Shortness of Breath SOB, arm pain Trazodone Shortness of Breath Ultram [Tramadol] Per patient contraindication due to wellbutrin alpha lipoic acid (LIPOIC ACID ORAL)^Take by mouth.^Disp: ^Rfl: ZINC ORAL^Take by mouth.^Disp: ^Rfl: LYSINE ORAL^Take by mouth.^Disp: ^Rfl: amLODIPine (NORVASC) 5 mg tablet^Take 1 tablet by mouth once daily.^Disp: 90 tablet^Rfl: 0 albuterol HFA (PROVENTIL HFA, VENTOLIN HFA) 90 mcg/actuation inhaler^Inhale 2 Puffs as instructed every 6 hours as needed for wheezing/shortness of breath.^Disp: 18 g^Rfl: 0 HYDROcodone-acetaminophen (NORCO) 5-325 mg per tablet^Take 1 tablet by mouth every 8 hours as needed for pain.^Disp: 30 tablet^Rfl: 0 nystatin-triamcinolone (MYCOLOG) ointment^Apply to affected area as directed.^Disp: 30 g^Rfl: 1 nystatin (NYSTOP) powder^Apply 1 application to affected area four times daily.^Disp: 60 g^Rfl: 2 azelastine (ASTELIN, ASTEPRO) 0.1% nasal spray^Use 1 [place] in each nostril twice daily.^Disp: 30 mL^Rfl: 5 hydrOXYchloroQUINE (PLAQUENIL) 200 mg tablet^Take 1 tablet by mouth twice daily.^Disp: 180 tablet^Rfl: 1 pregabalin (LYRICA) 225 mg capsule^Take 1 capsule by mouth twice daily for 90 days.^Disp: 180 capsule^Rfl: 1 metoprolol succinate ER (TOPROL XL) 25 mg 24 hr tablet^Take 2 tablets by mouth once daily.^Disp: 180 tablet^Rfl: 0 fluticasone (FLONASE) 50 mcg/actuation nasal spray^Use 2 Sprays in each nostril once daily.^Disp: 1 Each^Rfl: 5 tamsulosin (FLOMAX) 0.4 mg^Take 1 capsule by mouth daily at bedtime.^Disp: 90 capsule^Rfl: 1 fexofenadine (ANÍBAL ALLERGY) 180 mg tablet^Take 1 tablet by mouth once daily.^Disp: 90 tablet^Rfl: 1 zolpidem (AMBIEN) 10 mg^Take by mouth at bedtime as needed.^Disp: ^Rfl: meloxicam (MOBIC) 15 mg tablet^Take 0.5-1 tablets by mouth once daily.^Disp: 90 tablet^Rfl: 2 CPAP^Continue BiPAP with new settings: @ 14/8 cm of water with humidification. No new equipment is needed.^Disp: 1 Device^Rfl: 0 aspirin, enteric coated (ASPIRIN, ENTERIC COATED) 81 mg EC tablet^Take 81 mg by mouth once daily.^Disp: ^Rfl: IRON, FERROUS SULFATE, ORAL^Take by mouth once daily.^Disp: ^Rfl: ASCORBIC ACID (VITAMIN C ORAL)^Take by mouth once daily.^Disp: ^Rfl: buPROPion (WELLBUTRIN) 75 mg tablet^Take 150 mg by mouth twice daily. 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 Pets: None FAMILY HISTORY Problem Relation Age of Onset Cancer Mother skin Cancer Father KIDNEY other (Brain Tumor) Father Cancer Sister thyroid No Known Problems Brother PAST SURGICAL HISTORY Procedure Laterality Date ARTHROPLASTY TOTAL SHOULDER 04/03/2013 Right shoulder replacement ARTHRP ACETBLR/PROX FEM PROSTC AGRFT/ALGRFT 1992 Hip replacement, total RIGHT BACK SURGERY HX COLONOSCOPY FLX DX W/COLLJ SPEC WHEN PFRMD 08/11/1992 Colonoscopy COLONOSCOPY FLX DX W/COLLJ SPEC WHEN PFRMD 09/01/2018 Colonoscopy COLSC FLX W/RMVL OF TUMOR POLYP LESION SNARE TQ 06/26/08 ESOPHAGOGASTRODUODENOSCOPY TRANSORAL DIAGNOSTIC 05/08/2020 EGD JOINT REPLACEMENT HX PAST SURGICAL HISTORY OF 1995 L5-S1 spinal fusion with pins, rods, and bolts PAST SURGICAL HISTORY OF 03/2011 Right hip revision PAST SURGICAL HISTORY OF 1970 right shoulder surgery PAST SURGICAL HISTORY OF Left 2018 shoulder replacement PMH, Social history, family history and surgical history reviewed and updated in EMR REVIEW OF SYSTEMS: CONSTITUTIONAL: No fevers, chills, nightsweats, unintended weight loss or recent weight gain HEENT: Denies headaches. Severe nasal congestion/sinus symptoms, allergy problems. EYES: No diplopia or blurry vision. CARDIOVASCULAR: No chest pain, palpitations, orthopnea, PND. Lower extremity edema PULM: See HPI GI: No dysphagia/odynophagia, problematic reflux, constipation, diarrhea. : No urinary complaints, including dysuria, gross hematuria or pyuria. NEURO: Poor balance, neuropathy hands and feet. No syncope or dizziness MUSC-SKEL: Polyarticular joint pain. No swelling or erythema PSY: No concerns regarding depression, anxiety INTEGUMENTARY: No skin rashes. Bilateral skin burning sensation without pruritus PHYSICAL EXAMINATION: BP 148/80 Pulse 66 Temp 97.3 Resp 18 Ht 5' 8 (1.73m) Wt 291 lb 11.2 oz (132.3kg) SpO2 95% BMI 44.36 kg/(m^2). General Appearance: Morbidly obese male, NAD Skin: Skin color, texture, turgor normal, no suspicious rashes or lesions. Head: Normocephalic, no masses, lesions, tenderness or abnormalities. Ears: Unable to fully visualize TMs due to cerumen Eyes: Sclera, conjunctiva normal Oropharynx: No oral lesions, thrush. Mallampati 4 Neck: Unable to assess JVD due to obesity. No palpable masses or thyromegaly Lungs: Not labored, normal to percussion, no wheezes or crackles Heart: Regular rate and rhythm, no murmurs gallops Extremities: Mild pitting edema, no clubbing Musculoskeletal: No joint deformities or effusions Neurologic: Alert and oriented, no focal findings Lymph Nodes: No cervical lymphadenopathy and No supraclavicular lymphadenopathy. Assessment/Plan: 1. MONACO -Dyspnea likely due to his recent COVID infection and his morbid obesity -No evidence of lung disease related to his lupus, i.e. interstitial lung disease and no clinical history of diaphragmatic myopathy -Pulmonary function tests including MIP/MIP and exhaled nitric oxide level to rule out airways disease -Ambulatory oxygen assessment 2. Post COVID chronic dyspnea -See #1 3. Lupus -See #1 -Follow-up with rheumatology 4. Morbid obesity -Class III obesity, BMI 44 -Weight loss advised 5. GERD -Nocturnal cough suggestive of silent acid reflux disease -Patient instructed to obtain OTC Pepcid Loraine Holcomb MD Respiratory [place] documented in this encounter [facility] 09-02-2022 Miscellaneous Notes Per previous [employer] message Hilary spoke to patient yesterday and took care of there needs. Patient's called because they received a call from Gricelda with Dr. aZrate's office around 3:30 PM regarding an issue filling his prescription. Patient is unsure what RX she would have been speaking of, as they picked up albuterol ordered by Kathya Aviles yesterday. Please advise, Gema Ervin documented in this encounter [facility] 09-01-2022 Miscellaneous Notes I spoke to Zayda's spouse and took care of her needs. Thank you, Hilary Pendleton Please assist this patient's in scheduling a visit (he messaged about her on his [employer] account). Likely covid, so prefer virtual if symptoms less than 5 days. Layo Cuellar APRN.CNP documented in this encounter [facility] 08-31-2022 History of Present illness Narrative Telemedicine Evaluation for COVID-19 Infection MyChart video visit was used for evaluation of this patient. Location of patient: [place] Name and verified. SUBJECTIVE Zayda De La Vega is a 71 year old male who presents with 2 days of symptoms that are stable. Was in the ER yesterday for SOB and Covid-19. Tuesday symptoms started Tmax a little over 100 Taking Coricidin, sudafed, tylenol, mucinex, nasal spray and Aníbal Alexander for Lupus and chest discomfort from coughing. Denies chest pain, heart palpitations or syncope. Pt on 2L O2 that was started in the ER yesterday, pt O2 during VV 88-89%. Pt and states his O2 sits at 87-88% at night. Denies respiratory distress at this time. Symptoms include: Fever (?100.4F): Yes or Chills: No Cough: Yes, productive, Shortness of breath: Yes, was given 2L in ER yesterday or Difficulty breathing: No Fatigue: Yes Muscle aches: Yes Headache: Yes New loss of smell or taste: No Sore throat: Yes Nasal congestion: Yes or Rhinorrhea: Yes Nausea: No or Vomiting: No Diarrhea: No OTC meds/remedies that patient has tried: as above. High risk category assessment Age > 60 years old Morbid Obesity (BMI>40) Exposures: Sick contacts? No Family or close contacts with confirmed/probable COVID-19 in last 14 days? No He reports that he quit smoking about 38 years ago. His smoking use included cigarettes. He has a 10.00 pack-year smoking history. He has never used smokeless tobacco. OBJECTIVE VIDEO EXAM (if available) Self-reported pulse oximetry: on 2L running 89% 87-88% at night on bipap, when switched to 2L O2 came up to 90% Pulse ox runs 90-91% normally Adjusting O2 to 3L and pulse ox 92% GENERAL: well appearing, alert, in no acute distress HEENT: no conjunctival injection, pupils equal, moist mucous membranes, oropharynx clear without erythema, sinuses non-tender to self-palpation, and no cervical adenopathy by self-palpation PULMONARY: wearing oxygen, no coughing noted, and no wheezing noted ASSESSMENT/PLAN (B34.9) Viral illness (primary encounter diagnosis) (U07.1) COVID-19 virus infection (R06.02) SOB (shortness of breath) (R05.1) Acute cough - Discussed symptom monitoring and supportive care - Red flag symptoms requiring follow up discussed This patient encounter involved the screening or treatment of novel coronavirus infection (COVID-19). ASSESSMENT/PLAN: 1. Viral illness - ICD9: 079.99, ICD10: B34.9 (primary diagnosis) - Discussed viral etiology and rationale for treatment. - Symptomatic treatment with prn analgesia - Supportive care with fluids and rest - The patient may also use OTC cough and cold meds as needed, warm salt water gargles, throat lozenges and/or OTC throat spray as needed, and nasal saline gtts and suction prn. - Follow up in one week if symptoms persist or sooner if worsening of symptoms 2. COVID-19 virus infection - ICD9: 079.89, ICD10: U07.1 - discussed home isolation - ED if severe, discussed red flag symptoms and when to be evaluated in the ED. Pt VU. - ALBUTEROL SULFATE HFA 90 MCG/ACTUATION AEROSOL INHALER 3. SOB (shortness of breath) - ICD9: 786.05, ICD10: R06.02 - O2 was 88-89% during the visit, had pt increase O2 to 3L, O2 came up to 92%. Continue 3L O2 - discussed in depth with pt and that is pulse ox decreases below 90% and stays then pt will need to go to the ER. Pt and VU. - ALBUTEROL SULFATE HFA 90 MCG/ACTUATION AEROSOL INHALER 4. Acute cough - ICD9: 786.2, ICD10: R05.1 - ALBUTEROL SULFATE HFA 90 MCG/ACTUATION AEROSOL INHALER Follow up in 3 days to be evaluated in person, as needed or sooner if new or worsening symptoms. Kathya Aviles APRN.CNP documented in this encounter [facility] 08-31-2022 Instructions Kathya Aviles APRN.CNP - 08/31/2022 1:36 PM EST Resources for Managing Anxiety During COVID Crisis [email or web address] https://www.cdc.gov/coronavirus/2019-n cov/prepare/vyghdbqj-qvfqyw-ekcspdz.ht ml https://coronavirus.[place].gov/wps/eric duque/gov/covid-19/home/resources/resource w-cfe-vyhrex-bolswm-wiws-dnj-covid-19- pandemic www.[employer]/us/blog/portia-sa chacko-psychologist//cyh-wvzguy-rqw onavirus-anxiety https://www.[employer]/us/blo g/hez-qnlkm-qxmzmou//10-tips-cul qvrkgo-fdbk-feehsqlffv-now https://www.[employer]/us/blo g/experimentations//7-ingredient y-sdcceblymid-orabcykvcv-adversity How to Protect Yourself & Others from COVID-19 Wash your hands often Wash your hands often with soap and water for at least 20 seconds especially after you have been in a public place, or after blowing your nose, coughing, or sneezing. If soap and water are not readily available, use a hand energy auditor that contains at least 60% alcohol. Cover all surfaces of your hands and rub them together until they feel dry. Avoid touching your eyes, nose, and mouth with unwashed hands. Avoid close contact Inside your home: Avoid close contact with people who are sick. If possible, maintain 6 feet between the person who is sick and other household members. Outside your home: Put 6 feet of distance between yourself and people who don't live in your household. Cover your mouth and nose with a mask when around others Masks help prevent you from getting or spreading the virus. You could spread COVID-19 to others even if you do not feel sick. Everyone should wear a mask in public settings and when around people who don't live in your household, especially when other social distancing measures are difficult to maintain. Masks should not be placed on young children under age 2, anyone who has trouble breathing, or is unconscious, incapacitated or otherwise unable to remove the mask without assistance. Cover coughs and sneezes Always cover your mouth and nose with a tissue when you cough or sneeze or use the inside of your elbow and do not spit. Throw used tissues in the trash. Immediately wash your hands with soap and water for at least 20 seconds. Clean and disinfect Clean AND disinfect frequently touched surfaces daily. This includes tables, doorknobs, light switches, countertops, handles, desks, phones, keyboards, toilets, faucets, and sinks. Monitor Your Health Daily Be alert for symptoms. Watch for fever, cough, shortness of breath, or other symptoms of COVID-19. Especially important if you are running essential errands, going into the office or workplace, and in settings where it may be difficult to keep a physical distance of 6 feet. Take your temperature if symptoms develop. Don't take your temperature within 30 minutes of exercising or after taking medications that could lower your temperature, like acetaminophen. Travel Skip events that put you in contact with large groups of people (sporting events, concerts, theme torrez, etc). Avoid unnecessary domestic and international travel, including travel through large international airports. If traveling, wipe down your airplane seat (and tray) with a disinfecting wipe. Office Visits If you have a fever, cough or shortness of breath, or are otherwise concerned you have COVID-19, we ask that you do not come to any [facility] facility without calling your primary care physician or speaking to a provider using a virtual visit using [facility] [employer]. You will be evaluated to determine if you require being seen in person or if you meet CDC guidelines for testing for COVID-19 based on symptoms, travel and exposures. If you meet criteria for testing, your [employer] provider or primary care physician will advise how to proceed with testing Immunosuppression There is no need to stop your immunosuppressive medications preemptively. If you become sick, please let your doctor know, and discuss with them prior to stopping any medications. At this point, we have no knowledge that patients on immunosuppressive medications are at higher risk of COVID-19 infection. People with weakened immune systems are at higher risk of getting severely sick from SARS-CoV-2, the virus that causes COVID-19. They may also remain infectious for a longer period of time than others with COVID-19, but we cannot confirm this until we learn more about this new virus. Steps You Can Take to Protect Your Health Continue your regular treatment plan. Don't stop any medications or treatments without talking to your doctor. Discuss any concerns about your treatment with your doctor. Keep your regularly scheduled medical appointments. Talk to your doctor about steps they are taking to reduce risk of exposure to COVID-19 in the office. Use telehealth services whenever possible if recommended by your doctor. Ensure that you are getting necessary tests prescribed by your doctor. Seek urgent medical care if you are feeling unwell. Talk to your doctor, insurer, and pharmacist about getting an emergency supply of prescription medications. Make sure you have at least 30 days of prescription medications, ltfl-xfo-fymlkuh medicines, and supplies on hand in case you need or want to stay home for several weeks. Talk to your doctor or pharmacist about ways to receive your medications by mail. Take steps to care for your emotional health. Fear and anxiety about COVID-19 can be overwhelming and cause strong emotions. It is natural to feel concerned or stressed about COVID-19. - Learn more about stress and coping with anxiety here. Call your healthcare provider if stress gets in the way of your daily activities for several days in a row. If you are feeling overwhelmed with emotions like sadness, depression, or anxiety, or feel like you want to harm yourself or others: Call 181 if you feel like you want to harm yourself or others Visit the Disaster Distress Helpline call , [place] [address] Visit the National Domestic Violence Hotline or call and TTY Visit the National Suicide Prevention Lifeline or call and TTY or text Most importantly, don't panic. By following basic prevention measures such as hand hygiene and cover your cough, you are helping to keep yourself and others healthy. Additional information can be found on the CDC and [facility] web sites: https://www.cdc.gov/coronavirus/2019-n CoV/index.html https://[facility].org/coronaviru s Beginning Home Isolation Isolation is used to separate people infected with SARS-CoV-2, the virus that causes COVID-19, from people who are not infected. People who are in isolation should stay home until it s safe for them to be around others. In the home, anyone sick or infected should separate themselves from others by staying in a specific sick room or area and using a separate bathroom (if available). Isolation or Quarantine: What's the difference? Quarantine keeps someone who might have been exposed to the virus away from others. Isolation keeps someone who is infected with the virus away from others, even in their home. Who needs to isolate People who have COVID-19 People who have symptoms of COVID-19 and are able to recover at home People who have no symptoms (are asymptomatic) but have tested positive for infection with SARS-CoV-2 Steps to take Stay home except to get medical care Monitor your symptoms. Stay in a separate room from other household members, if possible Use a separate bathroom, if possible Avoid contact with other members of the household and pets Don t share personal household items, like cups, towels, and utensils Wear a mask when around other people, if you are able to When to seek emergency medical attention Look for emergency warning signs* for COVID-19. If someone is showing any of these signs, seek emergency medical care immediately: Trouble breathing Persistent pain or pressure in the chest New confusion Inability to wake or stay awake Bluish lips or face *This list is not all possible symptoms. Please call your medical provider for any other symptoms that are severe or concerning to you. Call 911 or call ahead to your local emergency facility: Notify the load haul dump operator that you are seeking care for someone who has or may have COVID-19. Ending Home Isolation - When you can be around others after you had or likely had COVID-19 When you can be around others after you had or likely had COVID-19 If You Test Positive for COVID-19 (Isolation) Everyone, regardless of vaccination status: Stay home for 5 days. Note: Day 0 is your first day of symptoms or the date of collection of a positive viral test if no symptoms. Day 1 is the first full day after symptoms developed or test specimen was collected. If you have no symptoms or your symptoms are resolving after 5 days, you can leave your house. Continue to wear a mask around others for 5 additional days. If you have a fever, continue to stay home until your fever resolves, even if it is longer than 5 days. If You Were Exposed to Someone with COVID-19 (Quarantine) If you: 1. Have been boosted OR 2. Completed the primary series of Pfizer or Moderna vaccine within the last 6 months OR 3. Completed the primary series of J&J vaccine within the last 2 months THEN: 1. Wear a mask around others for 10 days. 2. Test on day 5, if possible. If you develop symptoms get a test and stay home. If You Were Exposed to Someone with COVID-19 (Quarantine) If you: 1. Completed the primary series of Pfizer or Moderna vaccine over 6 months ago and are not boosted OR 2. Completed the primary series of J&J over 2 months ago and are not boosted OR 3. Are unvaccinated THEN: 1. Stay home for 5 days. After that continue to wear a mask around others for 5 additional days. 2. If you can't quarantine you must wear a mask for 10 days. 3. Test on day 5 if possible. If you develop symptoms get a test and stay home. I had COVID-19 or I tested positive for COVID-19 and I have a weakened immune system If you have a weakened immune system (immunocompromised) due to a health condition or medication, you might need to stay home and isolate longer than 10 days. Talk to your healthcare provider for more information. Your doctor may work with an infectious disease expert at your local health department to determine when you can be around others. How to Manage Common Symptoms Associated with COVID for Adults Fever- Fever is a temperature over 100.4 F and can occur when the body is fighting an infection. To help treat a fever: Drink plenty of fluids and stay well hydrated. Eat small amounts of easy to digest food. Rest. Your body needs rest to recover, but getting up and moving around the house frequently is a good idea. You should try to continue doing your normal daily activities (bathing, toileting, grooming, cooking), though you will probably feel tired, and need to rest often. Avoid any heavy activity or exercise, as this will increase your body temperature. Dress in light clothing and stay covered in a light sheet. Keep the room temperature cool. Take a slightly warm (not cold or cool) bath, or apply damp washcloths to the forehead and wrists. Cough- Cough is a common symptom associated with COVID and can be bothersome. To help treat a cough: Stay well hydrated. Try warm water or tea with lemon and/or honey to help soothe the cough. Use a humidifier to add moisture to the air. Try a product with menthol, like a cough drop or a rub for your chest such as Vicks, which can help reduce cough. Try cough drops. Avoid smoking and other strong odors or perfumes. Try breathing exercises to keep your lungs open and clear. Take a big deep breath through your nose and hold for 5 seconds before slowly releasing. Repeat frequently, while you are awake. Congestion- Runny nose or nasal congestion can occur with COVID. Treatment can help relieve symptoms: Try OTC nasal saline spray, or nasal saline rinse to relieve mucus congestion. Nasal strips can help keep nasal passages open, to increase airflow. Elevating your head with an extra pillow in bed can help reduce congestion. Using a humidifier can increase moisture in the air, and make breathing easier. Sore Throat- Another common symptom with COVID, can be managed at home by: Stay well hydrated. Gargle with salt water - mix teaspoon salt with 1 cup of warm water and gargle. This helps to loosen mucus in the back of the throat and may reduce discomfort. Try ice chips, popsicles or lozenges to soothe the throat. Nausea/Vomiting/Diarrhea- These are common symptoms, and staying hydrated is most important. If you are nauseous or vomiting, start with small sips of water every 10-15 minutes and increase as tolerated. You can try sucking an ice cube too. If tolerating, you can try pedialyte or Gatorade, or flat sprite or suzanne-nash. Start slowly and increase as you are able to. Instead of meals, try smaller, more frequent snacks. Try eating bland foods like crackers, toast, rice, and applesauce. Avoid spicy, greasy or fried foods and dairy containing foods. Even if you aren't feeling hungry due to lack of smell or taste, it is important to try to take in some food when you are able. After drinking and eating, rest in an upright position for up to two hours as needed to help decrease nauseous feelings. Try closing your eyes, avoid moving and watching TV. Avoid strong odors that can make you feel more nauseated. When to seek emergency medical attention Look for emergency warning signs for COVID-19. If having any of these symptoms, seek emergency medical care immediately: Trouble breathing Persistent pain or pressure in the chest New confusion Inability to wake or stay awake Bluish lips or face *This list is not all possible symptoms. Please call your medical provider for any other symptoms that are severe or concerning to you. documented in this encounter [facility] 08-31-2022 Miscellaneous Notes Received ED summary, labs, chest xray from [facility]. Placed in provider's inbox for review. Route to [place] scanning. documented in this encounter [facility] 08-30-2022 Miscellaneous Notes Received chest xray from [facility]. Placed in provider's inbox for review. Route to [place] scanning. documented in this encounter [facility] 08-30-2022 Miscellaneous Notes Patient's left regarding positive COVID test for MR De La Vega. Called to review symptoms, no answer, left VM to call office. documented in this encounter [facility] 08-15-[address] chest with some atelectasis, but no clear ILD. Will review with Pulmonary team message to patient. Pat Seo MD documented in this encounter [facility] 08-13-2022 History of Present illness Narrative Radiology Service Progress Note PATIENT NAME: Zayda De La Vega DATE OF SERVICE: August 13, 2022 TIME: 3:56 PM PATIENT IDENTITY VERIFICATION COMPLETED USING TWO (2) IDENTIFIERS: Name and Date of confirmed by patient verbally. FALL SCREENING: Has the patient had 2 falls in the last year or 1 fall with injury or currently using an Ambulatory Assistive Device (Walker, Cane, Wheelchair, Crutches, etc.)? No PATIENT GENDER DATA: Male PATIENT RELEVANT IMPLANT DATA REVIEWED: Yes RADIOLOGY DEPARTMENT: CT; Exam(s) Completed: Chest PERIPHERAL IV DATA: Not applicable SIGNED BY: RT Lizandro(R) August 13, 2022 3:56 PM documented in this encounter [facility] 08-07-2022 Miscellaneous Notes CXR with crowded vessels or poor inspiration. Can't rule out ILD Labs normal except: --dsDNA 83 Rec: CT chest [facility] message to patient. Pat Seo MD documented in this encounter [facility] 08-06-2022 History of Present illness Narrative Images from the original note were not included. PATIENT INFO: Zayda De La Vega 71 year old ( ) REFERRING PROVIDER: Self PCP: Edinson Zarate MD HPI: Zayda De La Vega 71 year old male is here today f=with another episode of Balanitis and yeast infection to Groin/ Scrotum We also discussed Zinc Oxide as a moisture barrier to urine when he is leaking LUTS: None Other symptoms: LABS: No results found for: TESTOST No results found for: TESTFREE PSA (ng/mL) Date Value 02/08/2020 1.41 PSA Screening (ng/mL) Date Value 04/15/2016 1.10 07/03/2014 1.51 Hematocrit (%) Date Value 07/12/2022 40.9 05/20/2022 41.0 02/25/2022 40.2 07/15/2021 39.7 02/07/2021 41.5 09/08/2019 42.3 MEDICATIONS: azelastine (ASTELIN, ASTEPRO) 0.1% nasal spray Use 1 [place] in each nostril twice daily. hydrOXYchloroQUINE (PLAQUENIL) 200 mg tablet Take 1 tablet by mouth twice daily. pregabalin (LYRICA) 225 mg capsule Take 1 capsule by mouth twice daily for 90 days. metoprolol succinate ER (TOPROL XL) 25 mg 24 hr tablet Take 2 tablets by mouth once daily. fluticasone (FLONASE) 50 mcg/actuation nasal spray Use 2 Sprays in each nostril once daily. predniSONE (DELTASONE) 5 mg tablet Take 1 tablet by mouth twice daily. HYDROcodone-acetaminophen (NORCO) 5-325 mg per tablet Take 1 tablet by mouth every 8 hours as needed for pain. tamsulosin (FLOMAX) 0.4 mg Take 1 capsule by mouth daily at bedtime. fexofenadine (ANÍBAL ALLERGY) 180 mg tablet Take 1 tablet by mouth once daily. amLODIPine (NORVASC) 5 mg tablet Take 1 tablet by mouth once daily. zolpidem (AMBIEN) 10 mg Take by mouth at bedtime as needed. meloxicam (MOBIC) 15 mg tablet Take 0.5-1 tablets by mouth once daily. CPAP Continue BiPAP with new settings: @ 14/8 cm of water with humidification. No new equipment is needed. aspirin, enteric coated (ASPIRIN, ENTERIC COATED) 81 mg EC tablet Take 81 mg by mouth once daily. IRON, FERROUS SULFATE, ORAL Take by mouth once daily. ASCORBIC ACID (VITAMIN C ORAL) Take by mouth once daily. buPROPion (WELLBUTRIN) 75 mg tablet Take 150 mg by mouth twice daily. LORazepam 1 mg ORAL tablet Take 1 mg by mouth every 6 hours as needed. semaglutide (OZEMPIC) 0.25 mg or 0.5 mg(2 mg/1.5 mL) pen Inject 0.25 mg subcutaneously one time a week. (Patient not taking: Reported on 08/06/2022) PAST MEDICAL HISTORY: PAST MEDICAL HISTORY Diagnosis Date Anxiety Dr. Belle Arthritis of both hips Benign neoplasm of colon Bipolar disorder (HCC) Dr. Belle DDD (degenerative disc disease), lumbar Depressive disorder, not elsewhere classified Diverticulosis of colon (without mention of hemorrhage) HLD (hyperlipidemia) 06/13/2017 Hypertension Internal hemorrhoids without mention of complication Monoclonal paraproteinemia Morbid obesity (HCC) MARCELINA (obstructive sleep apnea) 1998 Peripheral neuropathy Prediabetes 09/11/2019 Shoulder arthritis Sleep apnea Snoring REVIEW OF SYSTEMS: GENERAL: No fever, chills, weight loss, or fatigue. PHYSICAL EXAMINATION: Blood pressure 118/70, pulse 72, temperature 36.1 C (97 F), temperature source Temporal, resp. rate 18, height 172.7 cm (5' 8), weight 132 kg (291 lb), SpO2 94 %. GENERAL: WNL nutrition, no deformities, healthy appearing Penis and scrotum with erythema and yeast growth on scrotum and glans penis PROBLEM LIST REVIEW: Yes LABS: Results for orders placed or performed in visit on 08/06/22 UA DIP, URINE (POC) Result Value Ref Range GLUCOSE UA (POCT) Negative Negative mg/dL BILIRUBIN UA (POCT) Negative Negative KETONE UA (POCT) Negative Negative mg/dL SPECIFIC GRAVITY UA (POCT) 1.020 1.005 - 1.030 HEMOGLOBIN/BLOOD UA (POCT) Negative Negative PH UA (POCT) 6.0 4.5 - 8.0 PROTEIN UA (POCT) Negative Negative mg/dL UROBILINOGEN UA (POCT) 0.2 Normal E.U./dL NITRITE UA (POCT) Negative Negative LEUKOCYTES UA (POCT) Negative Negative COLOR UA (POCT) Yellow CLARITY UA (POCT) Clear PROCEDURES: IMAGING: IMPRESSION/PLAN: 1. Candidiasis of Scrotum and meatus 2. Balanitis > Nystatin Ointment twice per day > Nystatin Powder at bedtime > Use Zinc Oxide to created moisture barrier MCKAY Marvin MT, PA-C Verified name and date of . CC Post Void Residual HPI: Zayda De La Vega is a 71 year old male. The patient is here now for an appointment with MCKAY Marvin MT, PA-COV. Procedure: Explained procedure to patient and verbalizes understanding. Performed a PVR. Patient urinated and instructed to empty bladder as much as possible just prior to having PVR done using bladder ultrasound scanner. Results of scan: 50 mL The patient tolerated the procedure well. Plan: Appointment with Christopher. documented in this encounter [facility] 07-23-2022 Instructions Jacqueline Larson APRN.EDOUARD - 07/23/2022 1:51 PM EDT Nutrition Goal: meal replacements - Orgain and anti inflammatory diet [email or web address]/patient-care/healt hcare-services/nutrition-services/nutr [email or web address]-[email or web address]- diet.pdf Physical Activity Goal: 2-3 days per week 10-20 min walk or workout - see below Behavior Goal: night eating tips below, don't eat and watch TV, no caffeine after 2 pm Sleep Goal: 7-8 hours, sleep medicine consult Call [phone]. Pharmacology: Ozempic 0.25 mg per week then increase to 0.5 mg [phone] follow up 2-3 months Sample Eating Schedule with Meal Replacements 9 am Breakfast: meal replacement and a piece of fruit 12 pm Lunch: meal replacement and a piece of fruit or [employer] Healthy plate 3 pm Snack (optional) Smart snacking- pair complex carb with protein and/or healthyfat [email or web address] 6 pm Normal dinner 7:30 pm Snack/desssert (optional): pair complex carb with protein and/or healthyfat Try not to eat past 8 pm most days. Zayda Hartman Inspiring the world to fitness in body, soul and spirit. There are workouts, stories of inspiration, courage and more. So subscribe now to be a better you. Burn Fat! Burn Calories! Lose weight! Face life challenges and be an overcomer. Silva Panch[employer] is the world's leading fitness walking brand and creator of the original walking workout. [employer] has helped MILLIONS of people live active and healthy lives for over 30 years. Created by Silva Flanagan, [employer] is one of the top-selling fitness brands at [employer], including [employer], [employer], and [employer]. [employer]'s popular YouTube channel has over 3.9 Million subscribers and is ranked as one of the TOP FITNESS CHANNELS on YouTube. For more full length workouts from [employer], get the [employer] MAURICE Learn more at [email or web address]. Happy Walking Everybody! [employer] On demand workouts at home. Enjoy over 400 HIIT cardio, resistance, circuit, Pilates and boxing workouts. Programs that guarantee safe, healthy and sustainable fat loss and muscle tone with workouts that are easy to follow and fun. Also an maurice available. 10 [place] Ways to Stop Eating Late at Night Many people find themselves eating late at night, even when they aren t hungry. Nighttime eating can cause you to eat more calories than you need and lead to weight gain. Here are 10 things you can do to stop eating late in the evening or at night. ` 1. Identify the Cause Some people eat most of their food late in the evening or during the night. To change this habit, you need to identify the cause of the problem. Nighttime eating may be the result of overly restricted daytime food intake, leading to ravenous hunger at night. It may also be caused by habit or boredom. However, nighttime eating has also been linked to some eating disorders, including binge eating disorder and night eating syndrome. These two disorders are characterized by different eating patterns and behaviors, but can have the same negative effects on your health In both, people use food to curb emotions such as sadness, anger or frustration, and they often eat even when they are not hungry. Binge eaters also tend to eat very large amounts of food in one sitting and feel out of control while they are eating. On the other hand, people with nighttime eating syndrome tend to graze throughout the evening and wake up during the night to eat, consuming more than 25% of their daily calories at night. Both conditions have been linked to obesity, depression and trouble sleeping. Nighttime eating can be caused by boredom, hunger, binge eating disorder and nighttime eating syndrome. Identifying the cause will help you take the right steps to solve the problem. 2. Identify Your Triggers As well as identifying the overall cause of your overeating, you may find it useful to look for a specific pattern of events that usually sets off your eating behavior. People reach for food for many reasons. If you re not hungry but nonetheless find yourself eating at night, think about what led up to it. Often you will find you are using food to meet a need that isn t hunger. With nighttime eating syndrome, your entire eating pattern may be delayed due to your lack of daytime hunger. One effective way to identify the cause of your nighttime eating and the things that trigger it is to keep a food and mood diary. Tracking your eating and exercise habits alongside your feelings will help you identify patterns, enabling you to work on breaking any negative cycles of behavior. BOTTOM LINE: Monitoring your behavior patterns and identifying what triggers you to eat at night will help you break cycles of emotional eating. 3. Use a Routine If you re overeating because you aren t eating enough during the day, then getting yourself into a routine can help. Structured eating and sleeping times will help you spread your food intake over the day so that you re less hungry at night. Getting good sleep is very important when it comes to managing your food intake and weight. Lack of sleep and short sleep duration have been linked to higher calorie intakes and poor-quality diets. Over a long period of time, poor sleep can increase your risk of obesity and related diseases.Having set times for eating and sleeping can help you separate the two activities, especially if you are prone to waking in the night to eat. BOTTOM LINE: Having a routine for meal and sleep times can help you break unhealthy cycles of behavior. This can help if you have no appetite during the day or tend to binge at night. 4. Plan Your Meals As part of your routine, you may also benefit from using a meal plan. Planning your meals and eating healthy snacks can reduce the chances that you will eat on impulse and make poor food choices Having a meal plan can also reduce any anxiety about how much you are eating and help you spread your food throughout the day, keeping hunger at bay. BOTTOM LINE: Planning your meals and snacks can help manage your food intake and stave off hunger. 5. Seek Emotional Support If you think you may have nighttime eating syndrome or binge eating disorder, then you may want to seek professional help. A professional can help you identify your triggers and implement a treatment plan. These plans often use cognitive behavioral therapy (CBT), which has been shown to help with many eating disorders Creating an emotional support network will also help you find ways to manage negative emotions, which otherwise might lead you to the fridge. BOTTOM LINE: For some people with eating disorders, seeking professional help and support can be petersen to overcoming problematic eating at night. 6. De-Stress Anxiety and stress are two of the most common reasons why people eat when they aren t hungry. However, using food to curb your emotions is a bad idea. If you notice that you eat when you are anxious or stressed, try to find another way to let go of negative emotions and relax. Research has shown that relaxation techniques can help manage eating disorders such as nighttime eating syndrome and binge eating. Relaxation techniques you may find useful include breathing exercises, meditation, hot baths, yoga, gentle exercise or stretching. BOTTOM LINE: Instead of eating, try to deal with stress and anxiety using relaxation techniques, gentle exercise or stretching. 7. Eat Regularly Throughout the Day Overeating at night has been linked to erratic eating patterns that can often be categorized as disordered eating (26 Eating at planned intervals throughout the day in line with normal eating patterns can help keep your blood sugar stable. It can also help prevent feelings of ravenous hunger, tiredness, irritability or a perceived lack of food, which can lead to a binge When you get really hungry, you are more likely to make poor food choices and reach for high-fat, high-sugar junk foods. Studies find that those with regular meal times (eating 3 or more times per day), have better appetite control and lower weight ] Generally speaking, eating less than 3 times per day is thought to reduce your ability to control your appetite and food choices However, it s important to note that results in this area have been mixed. The best eating frequency for controlling hunger and the amount of food consumed is likely to vary among people (34 BOTTOM LINE: Eating regular meals will prevent you from getting too hungry and will help you manage your cravings and food impulses. 8. Include Protein at Every Meal Different foods can have different effects on your appetite. If you eat due to hunger, including protein at every meal may help curb your hunger. It could also help you feel more satisfied throughout the day, stop you from being preoccupied with food and help prevent snacking at night One study found that eating frequent high-protein meals reduced cravings by 60% and cut the desire to eat at night by half. Here is a list of 20 healthy high-protein foods. BOTTOM LINE: Protein is known to keep you danielle for longer. Including protein at every meal can reduce cravings and nighttime eating. 9. Don t Keep Junk Food in the House If you are prone to eating high-fat, high-sugar junk food at night, remove it from your house. If unhealthy snacks aren t within easy reach, you are much less likely to eat them.Instead, fill your house with healthy food that you enjoy. Then when you have the urge to eat, you won t snack on junk. Good snack-friendly foods to have available if you get hungry include fruits, berries, plain yogurt and cottage cheese. These are very filling and probably won t cause you to overeat in the case that you do end up becoming ravenously hungry in the evening. BOTTOM LINE: Take any unhealthy junk food out of the house. Doing so will stop you from snacking on it throughout the night. 10. Distract Yourself If you are preoccupied with thoughts of food because you re bored, then find something else you enjoy doing in the evening. This will help keep your mind occupied. Finding a new hobby or planning evening activities can help prevent mindless late-night snacking. BOTTOM LINE: If you are eating out of boredom, then try finding something else you enjoy doing in the evening to keep your mind occupied. Take Home Message Nighttime eating has been linked to excess calorie intake, obesity and poor health. If eating at night is a problem for you, then try the steps above to help you stop. [email or web address] documented in this encounter [facility] 07-23-2022 History of Present illness Narrative Images from the original note were not included. BMI Obesity Medicine Consult - VIRTUAL VISIT 07/23/22 This Team Access Model visit is a virtual encounter. It required patient-provider interaction for the medical decision making as documented below. Consultation requested by Edinson Zarate MD for an opinion regarding Obesity. My final recommendations will be communicated back to the requesting physician by way of shared Medical record or letter to requesting physician via US mail. Patient Summary: Zayda De La Vega is a 71 year old male with obesity who presents to the [facility] [place] for an initial evaluation of his obesity and is interested in non-surgical weight loss approaches. Primary reason for wanting obesity treatment : I'm sick of being fat. Overall goal: 225 lbs Weight History: He reports a strong family history of obesity (father and brother) and adult onset weight gain. He states his weight gain is related to the following factors, including medications (metoprolol. I've been a compulsive eater my whole life. I have a panic attack when I feel hungry and then next thing. Steroids for lupus. Weight Graph: (please see graph scanned in chart) Medications: Bupropion Diet: Quality of diet: 24hr recall suggests unhealthy diet. Characterization of diet:Unstructured, excessive cravings, evening snacking, increased consumption of sugar sweetened beverages, and skip meals. 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 Beverages:juice 11pm to 2 am Scotch when his lupus is acting up. Diet History: Past weight loss attempts? commercial diets, self-directed, and dietitian. Keto . The body type diet. Exercise: Regular exercise: No Strength/resistance exercise:No Barriers to regular exercise? Neuropathy, Lupus pain and OA. Work-related activity:Sedentary. ?Sleep: Duration: 7 hours. MARCELINA YES ; CPAP NO Quality:poor, Few awakenings :Sleep-wake cycle disruption:yes. eating in bedroom, eating late at night, inconsistent sleep schedule, and difficulty relaxing. Wakes: 10 am Bedtime: 2 am Sinus problems - goes to ENT. ??Stress: Some, Cause:Health Obesity Related Comorbidities: Prior Weight Loss Surgery:No ACTIVE PROBLEM LIST Thoracic Or Lumbosacral Neuritis Or Radiculitis, Unspecified Congenital Spondylolisthesis Essential Hypertension, Benign Other Seborrheic Keratosis Monoclonal Paraproteinemia Benign Neoplasm of Colon Diverticulosis of Colon (Without Mention of Hemorrhage) Internal Hemorrhoids Without Mention of Complication Hip Replacement Anemia Anxiety Shoulder Pain Adhesive Capsulitis of Shoulder Shoulder Arthritis Rotator Cuff Strain Ulnar Neuritis Primary Localized Osteoarthrosis of Shoulder Region Abnormality of Gait Shoulder Joint Replacement Status Pes Planus of Both Feet Arthritis, Midfoot Glenohumeral Arthritis Obstructive Sleep Apnea On Cpap Major Depression, Recurrent, Chronic (Hcc) Hld (Hyperlipidemia) Left Shoulder Pain Prediabetes Morbid Obesity With Body Mass Index (Bmi) of 40.0 to 44.9 in Adult (Hcc) Gerd Without Esophagitis Food Allergy History of Lumbosacral Spine Surgery Numbness and Tingling of Foot Muscle Weakness Primary Osteoarthritis Involving Multiple Joints Bph With Obstruction/Lower Urinary Tract Symptoms Systemic Lupus Erythematosus (Hcc) PAST SURGICAL HISTORY Procedure Laterality Date ARTHROPLASTY TOTAL SHOULDER 04/03/2013 Right shoulder replacement ARTHRP ACETBLR/PROX FEM PROSTC AGRFT/ALGRFT 1992 Hip replacement, total RIGHT BACK SURGERY HX COLONOSCOPY FLX DX W/COLLJ SPEC WHEN PFRMD 08/11/1992 Colonoscopy COLONOSCOPY FLX DX W/COLLJ SPEC WHEN PFRMD 09/01/2018 Colonoscopy COLSC FLX W/RMVL OF TUMOR POLYP LESION SNARE TQ 06/26/08 ESOPHAGOGASTRODUODENOSCOPY TRANSORAL DIAGNOSTIC 05/08/2020 EGD JOINT REPLACEMENT HX PAST SURGICAL HISTORY OF 1995 L5-S1 spinal fusion with pins, rods, and bolts PAST SURGICAL HISTORY OF 03/2011 Right hip revision PAST SURGICAL HISTORY OF 1970 right shoulder surgery PAST SURGICAL HISTORY OF Left 2018 shoulder replacement Obesity ROS/ FHx GEN: Fatigue:yes CV: h/o palpitations/cardiac arrhythmia, CP:No PULM: Asthma:No GI: GERD:No; Gallstones: No; Fatty liver disease:yes; H/o hernia:No MSK: Joint Pain:yes : Nephrolithiasis:No; Stress incontinence:No Symptoms of PCOS(women):No prediabetes NEURO: Migraines/DIAZ:No; H/o seizures: No Glaucoma:No; Cataracts beginnings of. Symptoms of pseudotumor cerebri:No The physical systems reviewed reveal no pathological symptoms that are pertinent to this visit Family History Problem Relation Age of Onset Cancer Mother skin Cancer Father KIDNEY other (Brain Tumor) Father Cancer Sister thyroid No Known Problems Brother PREV: PAP n/a, Mammogram n/a and Colonoscopy UTD Social History Social History Tobacco Use Smoking status: Former Packs/day: 1.00 Years: 10.00 Pack years: 10.00 Types: Cigarettes Quit date: 10/27/1983 Years since quittin.7 Smokeless tobacco: Never Substance Use Topics Alcohol use: Yes Comment: very rarely Drug use: No Occupation: retired PE There were no vitals taken for this visit. VIDEO EXAM: (if done, performed via video enabled technology) No exam performed Results: reviewed with the patient Appointment on 07/13/2022 Component Date Value Ref Range Status Sed Rate, Westergren 07/13/2022 10 0 - 15 mm/hr Final CRP 07/13/2022 0.6 <0.9 mg/dL Final TSH 07/13/2022 1.460 0.270 - 4.200 mIU/L Final DNA Antibody w/Confirmation 07/13/2022 82.96 (A) <30 IU/mL Final C3 Complement 07/13/2022 141 86 - 166 mg/dL Final C4 Complement 07/13/2022 26 13 - 46 mg/dL Final Platelet Neut 07/13/2022 Negative Negative Final DRVVT Screen 07/13/2022 37.5 32.0 - 45.7 seconds Final DRVVT Confirm Ratio 07/13/2022 1.03 <1.32 Final DRVVT 1:1 Mix 07/13/2022 36.6 32.0 - 45.7 seconds Final Hexagonal Phase Screen 07/13/2022 53.6 (A) 34.0 - 51.8 seconds Final Hexagonal Phase Confirm 07/13/2022 47.2 34.2 - 47.9 seconds Final Hexagonal Phase Delta 07/13/2022 6.3 <7.1 delta seconds Final APTT Screen 07/13/2022 33.7 24.0 - 35.1 seconds Final Thrombin Time 07/13/2022 16.8 <18.6 seconds Final PT Sec 07/13/2022 10.5 9.7 - 13.0 sec Final INR 07/13/2022 1.0 0.9 - 1.3 Final APTT 07/13/2022 26.7 23.0 - 32.4 sec Final Cardiolipin Ab, IgA 07/13/2022 <9.0 <12.0 APL Final Cardiolipin Ab, IgG 07/13/2022 12.6 <15.0 GPL Final Cardiolipin Ab, IgM 07/13/2022 13.9 (A) <12.5 MPL Final Beta 2 Glycoprotein, IgG 07/13/2022 <9 <20 SGU Final Beta 2 Glycoprotein, IgM 07/13/2022 <9 <20 SMU Final Interpretation (Lupus Anticoagulan* 07/13/2022 Final Value:Performing Pathologist: Shira Stevens Interpretation: Abnormal - see comment below. SIGNIFICANT FINDINGS: 1. Lupus anticoagulant: unlikely Laboratory testing was performed to evaluate the presence of a lupus anticoagulant and antiphospholipid antibodies. Both PT and PTT values are normal. The thrombin time and anti-Xa screen were normal. No heparin, anti-Xa or direct thrombin inhibitor drug effect is present. LUPUS ANTICOAGULANT STUDIES:Since only a single phospholipid-dependent assay is positive on screening (hexagonal phase screen) without a positive confirmatory and negative mixing studies, a lupus anticoagulant is unlikely. ANTIPHOSPHOLIPID ANTIBODY STUDIES:One or more of the anticardiolipin antibody titers were minimally elevated. These findings are of doubtful clinical significance. The criteria for the diagnosis of a Lupus Anticoagulant, as detailed by the Subcommittee on Lupus Anticoagulants and Anti-Phospholipid Antibodies of the Scientific and Standardization Committee of the International Society on Thrombosis and Haemostasis (ISTH), are the following: (1) A prolonged phospholipid-dependent clotting test (screening test); (2) Evidence for an inhibitor (1:1 mix of patient:normal plasma); (3) Evidence that the inhibitor is phospholipid dependent and (4) Exclusion of specific inhibitors (ie, fVIII inhibitors, direct thrombin inhibitors, or heparin). Thromb. Haemost. 74:1185 (1994). THE FOLLOWING TESTS WERE ADDED AND ARE REPORTED SEPARATELY: APTT mixing study, Hexagonal phase phospholipid neutralization, DRVVT and PNP. Crithidia luciliae 07/13/2022 Positive (A) Negative Final Appointment on 07/12/2022 Component Date Value Ref Range Status WBC 07/12/2022 5.25 3.70 - 11.00 k/uL Final RBC 07/12/2022 4.46 4.20 - 6.00 m/uL Final Hemoglobin 07/12/2022 13.2 13.0 - 17.0 g/dL Final Hematocrit 07/12/2022 40.9 39.0 - 51.0 % Final MCV 07/12/2022 91.7 80.0 - 100.0 fL Final MCH 07/12/2022 29.6 26.0 - 34.0 pg Final MCHC 07/12/2022 32.3 30.5 - 36.0 g/dL Final RDW-CV 07/12/2022 14.3 11.5 - 15.0 % Final Platelet Count 07/12/2022 267 150 - 400 k/uL Final MPV 07/12/2022 8.8 (A) 9.0 - 12.7 fL Final Neut% 07/12/2022 51.7 % Final Abs Neut 07/12/2022 2.72 1.45 - 7.50 k/uL Final Lymph% 07/12/2022 33.5 % Final Abs Lymph 07/12/2022 1.76 1.00 - 4.00 k/uL Final [place]% 07/12/2022 7.8 % Final Abs [place] 07/12/2022 0.41 <0.87 k/uL Final Eosin% 07/12/2022 5.0 % Final Abs Eosin 07/12/2022 0.26 <0.46 k/uL Final Baso% 07/12/2022 1.0 % Final Abs Baso 07/12/2022 0.05 <0.11 k/uL Final Immature Gran % 07/12/2022 1.0 % Final Abs Immature Gran 07/12/2022 0.05 <0.10 k/uL Final NRBC 07/12/2022 0.0 /100 WBC Final Absolute nRBC 07/12/2022 <0.01 <0.01 k/uL Final Diff Type 07/12/2022 Auto Final Protein, Total 07/12/2022 6.5 6.3 - 8.0 g/dL Final Albumin 07/12/2022 4.5 3.9 - 4.9 g/dL Final Calcium, Total 07/12/2022 9.2 8.5 - 10.2 mg/dL Final Bilirubin, Total 07/12/2022 0.3 0.2 - 1.3 mg/dL Final Alkaline Phosphatase 07/12/2022 59 38 - 113 U/L Final AST 07/12/2022 17 14 - 40 U/L Final ALT 07/12/2022 22 10 - 54 U/L Final Glucose 07/12/2022 121 (A) 74 - 99 mg/dL Final BUN 07/12/2022 15 9 - 24 mg/dL Final Creatinine 07/12/2022 0.81 0.73 - 1.22 mg/dL Final Sodium 07/12/2022 140 136 - 144 mmol/L Final Potassium 07/12/2022 5.0 3.7 - 5.1 mmol/L Final Chloride 07/12/2022 105 97 - 105 mmol/L Final CO2 07/12/2022 25 22 - 30 mmol/L Final Anion Gap 07/12/2022 10 9 - 18 mmol/L Final Estimated Glomerular Filtration Ra* 07/12/2022 93 >=60 mL/min/1.73m Final Protein, Total 07/12/2022 6.5 6.3 - 8.0 g/dL Final Albumin for SPE 07/12/2022 3.64 3.37 - 4.23 g/dL Final Alpha 1 Globulin 07/12/2022 0.19 0.18 - 0.31 g/dL Final Alpha 2 Globulin 07/12/2022 0.66 0.52 - 0.97 g/dL Final Beta Globulin 07/12/2022 0.95 0.84 - 1.36 g/dL Final Gamma Globulin 07/12/2022 1.06 0.70 - 1.44 g/dL Final Interpretation (Prot Electro) 07/12/2022 An M protein is identified on protein electrophoresis. (A) No definitive M protein is identified on protein electrophoresis. Final Interpretation Comment for Protein* 07/12/2022 See separate immunofixation report for characterization of monoclonal gammopathy. Final M-Protein Location 07/12/2022 Gamma Fraction 1 Final M-Protein Concentration 07/12/2022 0.50 (A) <=0.00 g/dL Final SPE Staff Review 07/12/2022 Reviewed by Sonny Granados MD, Ph.D ([id number]) Final IgG 07/12/2022 1,199 700 - 1,600 mg/dL Final IgA 07/12/2022 130 70 - 400 mg/dL Final IgM 07/12/2022 47 40 - 230 mg/dL Final MPA Result 07/12/2022 M protein is present. (A) No M protein is identified. Final Interpretation (MPA) 07/12/2022 Final Value:Atypical restricted bands are present in the IgG and lambda regions. Consistent with IgG lambda monoclonal gammopathy. Poorly defined region of restricted mobility in IgA and kappa lanes. Pattern is less well defined or fainter than typically seen in monoclonal gammopathy. This could represent either and atypical presentation of polyclonal immunoglobulins or the presence of a low level IgA kappa monoclonal gammopathy. If clinically indicated, urine monoclonal protein analysis and serum free light chain measurements are recommended to evaluate further for monoclonal gammopathy. Clinical correlation is necessary. Staff Review (MPA) 07/12/2022 Reviewed by Sonny Granados MD, Ph.D ([id number]) Final Nittany Free, Serum 07/12/2022 16.1 3.3 - 19.4 mg/L Final Lambda Free, Serum 07/12/2022 28.0 (A) 5.7 - 26.3 mg/L Final K/L Ratio, Serum 07/12/2022 0.58 0.26 - 1.65 Final Appointment on 06/15/2022 Component Date Value Ref Range Status Vitamin B6 06/15/2022 53.6 20.0 - 125.0 nmol/L Final Vitamin B2 06/15/2022 12 5 - 50 nmol/L Final Appointment on 05/20/2022 Component Date Value Ref Range Status WBC 05/20/2022 7.07 3.70 - 11.00 k/uL Final RBC 05/20/2022 4.46 4.20 - 6.00 m/uL Final Hemoglobin 05/20/2022 13.0 13.0 - 17.0 g/dL Final Hematocrit 05/20/2022 41.0 39.0 - 51.0 % Final MCV 05/20/2022 91.9 80.0 - 100.0 fL Final MCH 05/20/2022 29.1 26.0 - 34.0 pg Final MCHC 05/20/2022 31.7 30.5 - 36.0 g/dL Final RDW-CV 05/20/2022 14.6 11.5 - 15.0 % Final Platelet Count 05/20/2022 292 150 - 400 k/uL Final MPV 05/20/2022 8.8 (A) 9.0 - 12.7 fL Final Neut% 05/20/2022 50.1 % Final Abs Neut 05/20/2022 3.54 1.45 - 7.50 k/uL Final Lymph% 05/20/2022 34.1 % Final Abs Lymph 05/20/2022 2.41 1.00 - 4.00 k/uL Final [place]% 05/20/2022 9.9 % Final Abs [place] 05/20/2022 0.70 <0.87 k/uL Final Eosin% 05/20/2022 3.7 % Final Abs Eosin 05/20/2022 0.26 <0.46 k/uL Final Baso% 05/20/2022 0.8 % Final Abs Baso 05/20/2022 0.06 <0.11 k/uL Final Immature Gran % 05/20/2022 1.4 % Final Abs Immature Gran 05/20/2022 0.10 (A) <0.10 k/uL Final NRBC 05/20/2022 0.0 /100 WBC Final Absolute nRBC 05/20/2022 <0.01 <0.01 k/uL Final Diff Type 05/20/2022 Auto Final Protein, Total 05/20/2022 6.7 6.3 - 8.0 g/dL Final Albumin 05/20/2022 4.0 3.9 - 4.9 g/dL Final Calcium, Total 05/20/2022 9.1 8.5 - 10.2 mg/dL Final Bilirubin, Total 05/20/2022 0.3 0.2 - 1.3 mg/dL Final Alkaline Phosphatase 05/20/2022 58 38 - 113 U/L Final AST 05/20/2022 18 14 - 40 U/L Final ALT 05/20/2022 23 10 - 54 U/L Final Glucose 05/20/2022 114 (A) 74 - 99 mg/dL Final BUN 05/20/2022 16 9 - 24 mg/dL Final Creatinine 05/20/2022 0.76 0.73 - 1.22 mg/dL Final Sodium 05/20/2022 136 136 - 144 mmol/L Final Potassium 05/20/2022 4.6 3.7 - 5.1 mmol/L Final Chloride 05/20/2022 100 97 - 105 mmol/L Final CO2 05/20/2022 24 22 - 30 mmol/L Final Anion Gap 05/20/2022 12 9 - 18 mmol/L Final Estimated Glomerular Filtration Ra* 05/20/2022 95 >=60 mL/min/1.73m Final Protein, Total 05/20/2022 6.7 6.3 - 8.0 g/dL Final Albumin for SPE 05/20/2022 3.78 3.37 - 4.23 g/dL Final Alpha 1 Globulin 05/20/2022 0.21 0.18 - 0.31 g/dL Final Alpha 2 Globulin 05/20/2022 0.65 0.52 - 0.97 g/dL Final Beta Globulin 05/20/2022 0.92 0.84 - 1.36 g/dL Final Gamma Globulin 05/20/2022 1.14 0.70 - 1.44 g/dL Final Interpretation (Prot Electro) 05/20/2022 An M protein is identified on protein electrophoresis. (A) No definitive M protein is identified on protein electrophoresis. Final Interpretation Comment for Protein* 05/20/2022 Recommend monoclonal protein analysis to further characterize the M protein. Final M-Protein Location 05/20/2022 Gamma Fraction 1 Final M-Protein Concentration 05/20/2022 0.51 (A) <=0.00 g/dL Final SPE Staff Review 05/20/2022 Reviewed by Layo Schultz MD Final IgG 05/20/2022 1,169 700 - 1,600 mg/dL Final IgA 05/20/2022 136 70 - 400 mg/dL Final IgM 05/20/2022 43 40 - 230 mg/dL Final MPA Result 05/20/2022 M protein is present. (A) No M protein is identified. Final Interpretation (MPA) 05/20/2022 Atypical restricted bands are present in the IgG and lambda regions. Consistent with IgG lambda monoclonal gammopathy. Final Staff Review (MPA) 05/20/2022 Reviewed by Layo Schultz MD Final [place]any Free, Serum 05/20/2022 19.0 3.3 - 19.4 mg/L Final Lambda Free, Serum 05/20/2022 27.0 (A) 5.7 - 26.3 mg/L Final K/L Ratio, Serum 05/20/2022 0.70 0.26 - 1.65 Final Impression: Zayda De La Vega is a 71 year old male with Class III obesity (There is no height or weight on file to calculate BMI.) who has adult onset obesity with several periods of weight loss followed by weight gain . The causes of his obesity are multifactorial, biological, psychological and social and environmental. Specific factors include a genetic component related to a strong family of obesity, exposure to weight gain promoting medication(s) , increased consumption of high calorie/process foods, irregular eating patterns , suboptimal physical activity, inadequate sleep duration, poor sleep quality, circadian disruption, and smoking cessation. He has several weight-related medical comorbidities which increase his cardiovascular mortality risk. There are additional metabolic obesity complications including pre-diabetes, dyslipidemia, hypertension, obstructive sleep apnea, and vitamin D deficiency. Other medical conditions as above. Regarding his lifestyle, as above, he has several behavioral contributors; his physical activity is non-existent. Overall, it is clear that his quality of life is severely compromised by his weight. It is likely a combination of weight loss therapies will be needed. He appears motivated today. Plan: -- Based on the severity and resistance of the obesity to more conservative weight loss approaches, I believe a combination of behavioral and pharmacological intervention is the best and most appropriate fci therapeutic option. -- We discussed several strategies to track food intake and increase mindfulness around eating. He was counseled on Meal replacements -- Encouraged the patient to improve his physical activity. Although cardiovascular exercise is most beneficial for weight loss initially, we discussed healthy muscle from a combination of resistance training and cardiovascular exercise is the best fci plan. An overall goal of 200 minutes per week of exercise has been effective in weight loss and maintenance. -- follow-up visit for management of above interventions -- Agreed upon lifestyle interventions include: Nutrition Goal: meal replacements - Orgain and anti inflammatory diet Physical Activity Goal: 2-3 days per week 10-20 min walk or workout - see below Behavior Goal: night eating tips below, don't eat and watch TV, no caffeine after 2 pm Sleep Goal: 7-8 hours, sleep medicine consult. Pharmacology: Ozempic 0.25 mg per week then increase to 0.5 mg Jacqueline Larson APRN.CNP I spent a total of 55 minutes on the date of the service which included preparing to see the patient, [id number] patient care, completing clinical documentation, obtaining and/or reviewing separately obtained history, counseling and educating the patient/family/caregiver, and ordering medications, tests, or procedures. This visit was performed virtually due to the COVID-19 epidemic as an effort to protect patients and minimize exposure. documented in this encounter [facility] 07-22-2022 Miscellaneous Notes The following approved medication requests have been transmitted electronically. Appt by January Requested Prescriptions Signed Prescriptions Disp Refills azelastine (ASTELIN, ASTEPRO) 0.1% nasal spray 30 mL 5 Sig: Use 1 [place] in each nostril twice daily. Authorizing Provider: EDINSON ZARATE hydrOXYchloroQUINE (PLAQUENIL) 200 mg tablet 180 tablet 1 Sig: Take 1 tablet by mouth twice daily. Authorizing Provider: EDINSON ZARATE pregabalin (LYRICA) 225 mg capsule 180 capsule 1 Sig: Take 1 capsule by mouth twice daily for 90 days. Authorizing Provider: EDINSON ZARATE metoprolol succinate ER (TOPROL XL) 25 mg 24 hr tablet 180 tablet 0 Sig: Take 2 tablets by mouth once daily. Authorizing Provider: EDINSON ZARATE MD Pharmacy verified in Epic Patient has been identified by name and date of : Yes Patient aware RX will be sent to pharmacy. No need to notify patient. Patient phones for refill(s): Requested Prescriptions Pending Prescriptions Disp Refills azelastine (ASTELIN, ASTEPRO) 0.1% nasal spray 30 mL 5 Sig: Use 1 [place] in each nostril twice daily. hydrOXYchloroQUINE (PLAQUENIL) 200 mg tablet 180 tablet 1 Sig: Take 1 tablet by mouth twice daily. pregabalin (LYRICA) 225 mg capsule 180 capsule 1 Sig: Take 1 capsule by mouth twice daily for 90 days. metoprolol succinate ER (TOPROL XL) 25 mg 24 hr tablet 180 tablet 0 Sig: Take 2 tablets by mouth once daily. Date of last office visit : 05/20/2022 Date of next office visit : Visit date not found Last 2 Encounter Wt Readings: Date: Wt: 07/13/2022 134.8 kg (297 lb 1.6 oz) 07/01/2022 135.7 kg (299 lb 1.6 oz) Blood Pressure: BUN (mg/dL) Date Value 07/12/2022 15 07/15/2021 14 Creatinine (mg/dL) Date Value 07/12/2022 0.81 07/15/2021 0.80 Sodium (mmol/L) Date Value 07/12/2022 140 07/15/2021 135 Potassium (mmol/L) Date Value 07/12/2022 5.0 07/15/2021 4.4 Last 1 Encounter BP Readings: Date: BP: 07/13/2022 159/73 Please advise. Gricelda Lloyd LPN documented in this encounter [facility] 07-22-2022 Miscellaneous Notes Patient phones requesting refills as follows: Requested Prescriptions Pending Prescriptions Disp Refills fluticasone (FLONASE) 50 mcg/actuation nasal spray 1 Each 5 Sig: Use 2 Sprays in each nostril once daily. Please review and advise. Corie Duran LPN documented in this encounter [facility] 07-13-2022 History of Present illness Narrative RHEUMATOLOGY FOLLOW UP NOTE PROVIDER: Pat Seo MD DATE OF VISIT: 07/13/2022 PATIENT NAME: Zayda LUTHER CHIEF COMPLAINT / REASON FOR VISIT: SLE SUBJECTIVE / INTERIM HISTORY: Patient returns for follow-up. Last seen here 4 mos ago. Since last visit: Old problems: 1. Firey skin Numbness, burning Has presumed small fiber neuropathy Saw Neurology 5 mos ago On Lyrica He has stopped the Cymbalta now 2. Body feels like buzzing 3. Chronic pains Feels like in muscle Has hydrocodone, but doesn't have enough Worse where touching surface 4. Sweating 5. Coughing Maybe some dyspnea 6. Feels more tired 7. Gammopathy Seeing Hematology He has questions to what is and what is not lupus REVIEW OF SYSTEMS: Review of Systems CONSTITUTION: Negative for: Fever and Recent weight change HEENT: Positive for: Mouth sores, Trouble swallowing and Dry mouth Negative for: Nosebleeds RESPIRATORY: Positive for: Cough and Shortness of breath Negative for: Pain with breathing and Coughing up blood GASTROINTESTINAL: Positive for: Diarrhea Negative for: Melena, Heartburn and Abdominal pain MUSCULOSKELETAL: Positive for: Arthralgias, Myalgias, Muscle weakness, Joint swelling and Morning Joint Stiffness NEUROLOGICAL: Positive for: Headaches and Numbness Negative for: Memory loss SKIN: Negative for: Rash, Skin changes, Hair loss and Nail changes EYES: Negative for: Eye pain, Eye redness, Eye dryness and visual disturbance CARDIOVASCULAR: Positive for: Leg swelling Negative for: Chest pain GENITOURINARY: Negative for: Dysuria and Hematuria HEMATOLOGIC/LYMPHATIC: Negative for: Swollen glands PAST MEDICAL AND SURGICAL HISTORY PAST MEDICAL HISTORY Diagnosis Date Anxiety Dr. Belle Arthritis of both hips Benign neoplasm of colon Bipolar disorder (HCC) Dr. Belle DDD (degenerative disc disease), lumbar Depressive disorder, not elsewhere classified Diverticulosis of colon (without mention of hemorrhage) HLD (hyperlipidemia) 06/13/2017 Hypertension Internal hemorrhoids without mention of complication Monoclonal paraproteinemia Morbid obesity (HCC) MARCELINA (obstructive sleep apnea) 1997 Peripheral neuropathy Prediabetes 09/11/2019 Shoulder arthritis Sleep apnea Snoring PAST SURGICAL HISTORY Procedure Laterality Date ARTHROPLASTY TOTAL SHOULDER 04/03/2013 Right shoulder replacement ARTHRP ACETBLR/PROX FEM PROSTC AGRFT/ALGRFT 1992 Hip replacement, total RIGHT BACK SURGERY HX COLONOSCOPY FLX DX W/COLLJ SPEC WHEN PFRMD 08/11/1992 Colonoscopy COLONOSCOPY FLX DX W/COLLJ SPEC WHEN PFRMD 09/01/2018 Colonoscopy COLSC FLX W/RMVL OF TUMOR POLYP LESION SNARE TQ 06/26/08 ESOPHAGOGASTRODUODENOSCOPY TRANSORAL DIAGNOSTIC 05/08/2020 EGD JOINT REPLACEMENT HX PAST SURGICAL HISTORY OF 1995 L5-S1 spinal fusion with pins, rods, and bolts PAST SURGICAL HISTORY OF 03/2011 Right hip revision PAST SURGICAL HISTORY OF 1970 right shoulder surgery PAST SURGICAL HISTORY OF Left 2018 shoulder replacement SOCIAL AND FAMILY HISTORY FAMILY HISTORY Problem Relation Age of Onset Cancer Mother skin Cancer Father KIDNEY other (Brain Tumor) Father Cancer Sister thyroid No Known Problems Brother Social History Tobacco Use Smoking status: Former Packs/day: 1.00 Years: 10.00 Pack years: 10.00 Types: Cigarettes Quit date: 10/27/1983 Years since quittin.7 Smokeless tobacco: Never Substance Use Topics Alcohol use: Yes Comment: very rarely Drug use: No CURRENT MEDICATIONS: Current Outpatient Medications Medication Sig iv contrast (will be provided with radiology test) CT Elbow - No IV access, insert saline lock prior to the sedation, infusion, injection for imaging exam. Discontinue saline lock post exam. If Pt. has a central line or IVAD, may access for administration according to line specific nursing protocol. Once exam is complete flush line and de-access according to line specific nursing protocol in the CT contrast administration guidelines link. HYDROcodone-acetaminophen (NORCO) 5-325 mg per tablet Take 1 tablet by mouth every 8 hours as needed for pain. tamsulosin (FLOMAX) 0.4 mg Take 1 capsule by mouth daily at bedtime. fexofenadine (ANÍBAL ALLERGY) 180 mg tablet Take 1 tablet by mouth once daily. amLODIPine (NORVASC) 5 mg tablet Take 1 tablet by mouth once daily. zolpidem (AMBIEN) 10 mg metoprolol succinate ER (TOPROL XL) 25 mg 24 hr tablet TAKE 2 TABLETS ONCE DAILY meloxicam (MOBIC) 15 mg tablet Take 0.5-1 tablets by mouth once daily. DULoxetine (CYMBALTA) 60 mg capsule Take 60 mg by mouth twice daily. (Patient not taking: Reported on 07/01/2022) hydrOXYchloroQUINE (PLAQUENIL) 200 mg tablet Take 1 tablet by mouth twice daily. pregabalin (LYRICA) 225 mg capsule Take 1 capsule by mouth twice daily for 90 days. azelastine (ASTELIN) 0.1% nasal spray Use 1 [place] in each nostril twice daily. fluticasone (FLONASE) 50 mcg/actuation nasal spray Use 2 Sprays in each nostril once daily. CPAP Continue BiPAP with new settings: @ 14/8 cm of water with humidification. No new equipment is needed. aspirin, enteric coated (ASPIRIN, ENTERIC COATED) 81 mg EC tablet Take 81 mg by mouth once daily. IRON, FERROUS SULFATE, ORAL Take by mouth once daily. ASCORBIC ACID (VITAMIN C ORAL) Take by mouth once daily. buPROPion (WELLBUTRIN) 75 mg tablet Take 150 mg by mouth twice daily. LORazepam 1 mg ORAL tablet Take 1 mg by mouth every 6 hours as needed. No current facility-administered medications for this visit. PHYSICAL EXAMINATION: General: Patient is alert and oriented. Appears healthy and well. Vital signs: BP 159/73 Pulse 62 Temp 36.1 C (96.9 F) (Temporal) Wt 134.8 kg (297 lb 1.6 oz) BMI 45.17 kg/m Skin: No rash, nodule or thickening. Eyes: No injection. PERRLA. Lymph: Normal in neck and axillae. Neck: No thyromegaly or mass. Lungs: Normal resp. effort. Clear to A & P. Heart: RRR without gallop, murmur or rub. Extremities: No edema. Pulses equal and normal. Musculoskeletal: No joint tenderness or swelling Neurologic: Motor strength 5+ and equal. Normal DTRs, 2+ and symmetric. Sensory normal. DATA: Laboratory: Reviewed Component Latest Ref Rng & Units 05/20/2022 WBC 3.70 - 11.00 k/uL 7.07 RBC 4.20 - 6.00 m/uL 4.46 Hemoglobin 13.0 - 17.0 g/dL 13.0 Hematocrit 39.0 - 51.0 % 41.0 MCV 80.0 - 100.0 fL 91.9 MCH 26.0 - 34.0 pg 29.1 MCHC 30.5 - 36.0 g/dL 31.7 RDW-CV 11.5 - 15.0 % 14.6 Platelet Count 150 - 400 k/uL 292 MPV 9.0 - 12.7 fL 8.8 (L) Neut% % 50.1 Abs Neut (ANC) 1.45 - 7.50 k/uL 3.54 Lymph% % 34.1 Abs Lymph 1.00 - 4.00 k/uL 2.41 [place]% % 9.[address] [place] [place] <0.87 k/uL 0.70 Eosin% % 3.7 Abs Eosin <0.46 k/uL 0.26 Baso% % 0.8 Abs Baso <0.11 k/uL 0.06 Immature Gran % % 1.4 IMMATURE GRANS (ABS) <0.10 k/uL 0.10 (H) NRBC /100 WBC 0.0 Absolute nRBC <0.01 k/uL <0.01 DTYPE Auto Protein, Total 6.3 - 8.0 g/dL 6.7 Albumin 3.9 - 4.9 g/dL 4.0 Calcium 8.5 - 10.2 mg/dL 9.1 Bilirubin, Total 0.2 - 1.3 mg/dL 0.3 Alkaline Phosphatase 38 - 113 U/L 58 AST 14 - 40 U/L 18 ALT 10 - 54 U/L 23 Glucose 74 - 99 mg/dL 114 (H) BUN 9 - 24 mg/dL 16 Creatinine 0.73 - 1.22 mg/dL 0.76 Sodium 136 - 144 mmol/L 136 Potassium 3.7 - 5.1 mmol/L 4.6 Chloride 97 - 105 mmol/L 100 CO2 22 - 30 mmol/L 24 Anion Gap 9 - 18 mmol/L 12 eGFR >=60 mL/min/1.73m 95 IMPRESSION / PROBLEM LIST: 1. 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 Likely small fiber neuropathy Based on symptoms Could be due to SLE or gammopathy Has seen Neurology in the past and then recent again 02/21 3. Osteoarthritis 4. Gammopathy Following with Hematology here 5. Overweight 6. HTN 7. Hyperlipidemia 8. Anxiety / Depression 9. Ophtho up to date 10. Echocardiogram done 12/22 with RVSP est at 38 mmHg 11. Oral mass 12. Indeterminate LAC 12. Cough RECOMMENDATIONS / PLAN: Laboratory: As outlined in orders. Radiology: As outlined in orders. CXR Consultations: May need Neurology FU May need Pain Mgt FU Hematology Ophtho yearly Physical / Occupational therapy: Continue home exercise program: light weights, range of motion and stretching. Medications: Trial of prednisone 5 mg bid. If positive results, will need to consider other immunosuppressives Patient Education: Reviewed risks of steroids Reviewed in general risks of other immunosuppressives Vaccinations: Keep up to date Other: Patient aware that I will call if testing is out of the range of what is expected. Patient should update all of his age appropriate malignancy screens. Follow-up: As before I spent a total of 45 minutes on the date of the service which included preparing to see the patient, [id number] patient care, completing clinical documentation, performing a medically appropriate examination, counseling and educating the patient/family/caregiver, and ordering medications, tests, or procedures. Electronically signed by: Pat Seo MD CC: Edinson Zarate [address] [place] [address] [place] [id number] documented in this encounter [facility] 07-12-2022 Instructions Janny Hill PA-C - 07/12/2022 3:58 PM EDT Follow up after CT. Schedule CT, follow up, and physical therapy today. Gentle range of motion and stretching as tolerated. Rest and relax as much as possible for next 5 to 7 days. Wear wrist brace while active and as needed for comfort. Apply voltaren gel 3-4 times a day for 10-14 days. You can also take Tylenol 500-1000 mg 2-3 times a day as needed for pain, take with food. Keep elbow elevated above heart as much as possible. Recommended to apply ice to affected area for 20 minutes, as often as every hour. Ice should not be applied directly to skin. Apply heat for 10 to 15 minutes as often as every hour. Heat before activity and for stiffness, cold for after activity and for achy pain. documented in this encounter [facility] 07-12-2022 History of Present illness Narrative SERVICE DATE: July 12, 2022 PCP: Edinson Zarate MD Subjective Patient ID: Zayda is a 71 year old male. Chief Complaint: Patient presents with: Right Elbow - New, Pain, Numbness PAIN EVALUATION 07/12/2022 1537 Pain Level: 0 Pain Location: Elbow-Right Duration Amount of Time: 3 Duration Units: Months Frequency: Intermittent HPI 71 year old male here for Rt elbow pain. RHD. Onset 3 months ago, denies injury but notes pulling hard on shoe laces and hearing a crack notes bruising when re-injuring, sts pain is fleeting. Notes if he lifts and supinates he re-injures the area. Sts there is a firm mass in olecranon fossa which gets bigger with injury but gets smaller with rest. Worst pain at lateral aspect of elbow, just distal to the joint. Does get some radiation into hand. Worst pain caused by lifting and rotating with something heavy in the hand, or pulling backwards. Does note some bruising and swelling. No elbow instability. Numbness and tingling in hand, chronic/stable. No treatments tried. Multiple joints replaced, including one hip in the s. Review of Systems Constitutional: Negative. HENT: Negative. Respiratory: Negative. Cardiovascular: Negative. Gastrointestinal: Negative. Endocrine: Negative. Skin: Positive for color change. Neurological: Positive for numbness. Hematological: Negative. Musculoskeletal: Positive for joint swelling. ACTIVE PROBLEM LIST Thoracic Or Lumbosacral Neuritis Or Radiculitis, Unspecified Congenital Spondylolisthesis Essential Hypertension, Benign Other Seborrheic Keratosis Monoclonal Paraproteinemia Benign Neoplasm of Colon Diverticulosis of Colon (Without Mention of Hemorrhage) Internal Hemorrhoids Without Mention of Complication Hip Replacement Anemia Anxiety Shoulder Pain Adhesive Capsulitis of Shoulder Shoulder Arthritis Rotator Cuff Strain Ulnar Neuritis Primary Localized Osteoarthrosis of Shoulder Region Abnormality of Gait Shoulder Joint Replacement Status Pes Planus of Both Feet Arthritis, Midfoot Glenohumeral Arthritis Obstructive Sleep Apnea On Cpap Major Depression, Recurrent, Chronic (Hcc) Hld (Hyperlipidemia) Left Shoulder Pain Prediabetes Morbid Obesity With Body Mass Index (Bmi) of 40.0 to 44.9 in Adult (Hcc) Gerd Without Esophagitis Food Allergy History of Lumbosacral Spine Surgery Numbness and Tingling of Foot Muscle Weakness Primary Osteoarthritis Involving Multiple Joints Bph With Obstruction/Lower Urinary Tract Symptoms Systemic Lupus Erythematosus (Hcc) PAST MEDICAL HISTORY Diagnosis Date Anxiety Dr. Belle Arthritis of both hips Benign neoplasm of colon Bipolar disorder ([facility]) Dr. Belle DDD (degenerative disc disease), lumbar Depressive disorder, not elsewhere classified Diverticulosis of colon (without mention of hemorrhage) HLD (hyperlipidemia) 06/13/2017 Hypertension Internal hemorrhoids without mention of complication Monoclonal paraproteinemia Morbid obesity (HCC) MARCELINA (obstructive sleep apnea) 1998 Peripheral neuropathy Prediabetes 09/11/2019 Shoulder arthritis Sleep apnea Snoring PAST SURGICAL HISTORY Procedure Laterality Date ARTHROPLASTY TOTAL SHOULDER 04/03/2013 Right shoulder replacement ARTHRP ACETBLR/PROX FEM PROSTC AGRFT/ALGRFT 1993 Hip replacement, total RIGHT BACK SURGERY HX COLONOSCOPY FLX DX W/COLLJ SPEC WHEN PFRMD 08/11/1992 Colonoscopy COLONOSCOPY FLX DX W/COLLJ SPEC WHEN PFRMD 09/01/2018 Colonoscopy COLSC FLX W/RMVL OF TUMOR POLYP LESION SNARE TQ 06/26/08 ESOPHAGOGASTRODUODENOSCOPY TRANSORAL DIAGNOSTIC 05/08/2020 EGD JOINT REPLACEMENT HX PAST SURGICAL HISTORY OF 1995 L5-S1 spinal fusion with pins, rods, and bolts PAST SURGICAL HISTORY OF 03/2011 Right hip revision PAST SURGICAL HISTORY OF 1970 right shoulder surgery PAST SURGICAL HISTORY OF Left 2018 shoulder replacement FAMILY HISTORY Problem Relation Age of Onset Cancer Mother skin Cancer Father KIDNEY other (Brain Tumor) Father Cancer Sister thyroid No Known Problems Brother Social History Tobacco Use Smoking status: Former Packs/day: 1.00 Years: 10.00 Pack years: 10.00 Types: Cigarettes Quit date: 10/27/1983 Years since quittin.7 Smokeless tobacco: Never Substance Use Topics Alcohol use: Yes Comment: very rarely Drug use: No ALLERGIES Allergen Reactions Aspartame Swelling Pt gets burning sensation under skin Betadine [Povidone-* Rash Blister Lisinopril Cough Cough Losartan Cough Niacin Other: See Comments Niacin-Dermid Burning pain all over Penicillins Rash Seasonal Allergies Other: See Comments [place] [place]LLEN-positive skin test 09-05-13 Sudafed [Pseudoephe* Other: See Comments Difficulty swallowing, swelling of tongue & lips Tamiflu [Oseltamivi* Shortness of Breath SOB, arm pain Trazodone Shortness of Breath Ultram [Tramadol] Per patient contraindication due to wellbutrin MEDICATIONS: iv contrast (will be provided with radiology test) CT Elbow - No IV access, insert saline lock prior to the sedation, infusion, injection for imaging exam. Discontinue saline lock post exam. If Pt. has a central line or IVAD, may access for administration according to line specific nursing protocol. Once exam is complete flush line and de-access according to line specific nursing protocol in the CT contrast administration guidelines link. HYDROcodone-acetaminophen (NORCO) 5-325 mg per tablet Take 1 tablet by mouth every 8 hours as needed for pain. tamsulosin (FLOMAX) 0.4 mg Take 1 capsule by mouth daily at bedtime. fexofenadine (ANÍBAL ALLERGY) 180 mg tablet Take 1 tablet by mouth once daily. amLODIPine (NORVASC) 5 mg tablet Take 1 tablet by mouth once daily. zolpidem (AMBIEN) 10 mg metoprolol succinate ER (TOPROL XL) 25 mg 24 hr tablet TAKE 2 TABLETS ONCE DAILY meloxicam (MOBIC) 15 mg tablet Take 0.5-1 tablets by mouth once daily. DULoxetine (CYMBALTA) 60 mg capsule Take 60 mg by mouth twice daily. (Patient not taking: Reported on 07/01/2022) hydrOXYchloroQUINE (PLAQUENIL) 200 mg tablet Take 1 tablet by mouth twice daily. pregabalin (LYRICA) 225 mg capsule Take 1 capsule by mouth twice daily for 90 days. azelastine (ASTELIN) 0.1% nasal spray Use 1 [place] in each nostril twice daily. fluticasone (FLONASE) 50 mcg/actuation nasal spray Use 2 Sprays in each nostril once daily. CPAP Continue BiPAP with new settings: @ 14/8 cm of water with humidification. No new equipment is needed. aspirin, enteric coated (ASPIRIN, ENTERIC COATED) 81 mg EC tablet Take 81 mg by mouth once daily. IRON, FERROUS SULFATE, ORAL Take by mouth once daily. ASCORBIC ACID (VITAMIN C ORAL) Take by mouth once daily. buPROPion (WELLBUTRIN) 75 mg tablet Take 150 mg by mouth twice daily. LORazepam 1 mg ORAL tablet Take 1 mg by mouth every 6 hours as needed. Allergies, medications, past surgical history, family history and past medical history were reviewed per this encounter. Objective Musculoskeletal Examination: Range of motion: full range of active and passive motion noted in all aspects of elbow and wrist flexion, extension, supination and pronation Muscle strength: normal muscle strength testing of the elbow and wrist 5/5 in all aspects Lateral epicondyle palpation: no tenderness to palpation over the common extensor tendon Medial epicondyle palpation: no tenderness to palpation over the common flexor tendon proximal to the medial epicondyle Radial tunnel palpation: no tenderness to palpation Resisted wrist extension: negative for pain and negative for weakness Schillberg test (resisted middle finger extension): negative for pain and negative for weakness Collateral ligament testing: no ligamentous laxity noted of the UCL or RCL Cubital tunnel: normal with a negative Tinel's sign TTP over extensor mechanism at distal elbow Mass irregular and firm (feels like scar tissue) about 5 cm by 3 cm, mildly ttp, near area of distal bicep tendon insertion Hook test negative No ttp or palpable defect at tricep tendon TTP over capitellar and coronoid process Equal last code striper strength, equal sensation, able to abduct thumb against all fingers, difficulty crossing fingers due to OA bilaterally, spread fingers against resistance, make a thumb's up, and make an ok sign Imaging: Final results and radiologist's interpretation, available in the [facility] health record. Images were reviewed with the patient/family members in the office today. My personal interpretation of the performed imaging is Osseous structures are intact, without evidence of an acute fracture. Joint spaces are preserved. There is no evidence of a RIGHT elbow effusion. Small capitellar and coronoid process osteophytes are present. Assessment/Plan ASSESSMENT Diagnosis (M25.521) Right elbow pain (primary encounter diagnosis) Plan: CT ELBOW W IVCON RT, CONSULT TO PHYSICAL THERAPY (R22.31) Localized swelling, mass, or lump of right upper extremity Plan: CT ELBOW W IVCON RT, CONSULT TO PHYSICAL THERAPY (M77.8) Tendinitis of elbow Plan: CONSULT TO PHYSICAL THERAPY (M19.021) Primary osteoarthritis of right elbow Office Visit on 07/12/22 CT ELBOW W IVCON RT CONSULT TO ORTHOPAEDICS CONSULT TO PHYSICAL THERAPY PLAN Volar wrist brace given. Follow up after CT. Schedule CT, follow up, and physical therapy today. Gentle range of motion and stretching as tolerated. Rest and relax as much as possible for next 5 to 7 days. Wear wrist brace while active and as needed for comfort. Apply voltaren gel 3-4 times a day for 10-14 days. You can also take Tylenol 500-1000 mg 2-3 times a day as needed for pain, take with food. Keep elbow elevated above heart as much as possible. Recommended to apply ice to affected area for 20 minutes, as often as every hour. Ice should not be applied directly to skin. Apply heat for 10 to 15 minutes as often as every hour. Heat before activity and for stiffness, cold for after activity and for achy pain. FOLLOW-UP: Return for Imaging Before Appointment, in Office Follow Up. SIGNATURE: Janny Hill PA-C PATIENT NAME: Zayda De La Vega DATE: July 12, 2022 TIME: 3:33 PM Medical Decision Making: Problems: Moderate: 1+ chronic illnesses with change Data: Unique test result(s) reviewed: 1 Risk: Low: Low risk from testing/treatment Medical Decision Making Level: 3 - Low documented in this encounter [facility] 05-28-2022 History of Present illness Narrative Images from the original note were not included. [facility] (Elements copied from my note dated February 25, 2022 have been reviewed and updated where appropriate, and all reflect current assessment and medical decision making during today's encounter, May 28, 2022) Zayda De La Vega is a 71 year old male patient. Reason for visit: Consult, referred by Dr. Pat Seo for MGUS. My recommendations to the consult requesting physician are communicated via the shared electronic medical record or US mail. Baseline assessment on initial diagnosis date January Cancer Staging No matching staging information was found for the patient. 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 Myeloma FISH panel: Cytogenetics: LDH: 127 U/L (100 - 220) ISS stage: [place] Stage: Monoclonal proteins at diagnosis: Serum M-spike: 0.54 and M-Protein Concentration 2 0.51 gm/dL, Involved serum free light chains: 27.2 mg/L, Uninvolved serum free light chains: 15.6 mg/L, Urinary m-protein: g/24hrs, Urinary protein excretion: g/24hrs, Urinary albumin: % and Urinary m-protein Total immunoglobulins at diagnosis: IgG 1215 mg/dL, IgA 135 mg/dL, IgM 43 mg/dL Bone marrow plasma cell infiltration: Systemic treatment and disease course Local treatments (radiation, surgery, kyphoplasty) Interval History Mr De La Vega presents today for follow up for IgG lambda MGUS. He is accompanied by his . Her reports that the rate that his neuropathy was worsening has slowed since he started Hydroxychloroquine. Per patient, his skin and muscles are extremely and painfully sensitive to pressure at times. States pain can last up to 2 days. He reports he is now on a lower dose of Cymbalta. He experiences episodes of drenching sweats. Per patient, he has been recurrent sores on his lips that turn into fissures/cracks on his lips. History of present illness Mr. De La Vega is a very pleasant 71 yr old male with PMHx significant for MGUS, peripheral neuropathy, osteoarthritis, essential hypertension, hyperlipidemia, who presents rheumatologic evaluation in the setting of positive PRANAY and recent diagnosis of SLE in [place] seen today for evaluation of MGUS. He is accompanied by his . Mr De La Vega confirmed description of his symptoms below as unchanged. Per Dr Seo's progress note 01/12/2022: Patient describes various symptoms that have been episodic over the past 15 years. He mainly characterizes it as fires in his ears, eyelids, shoulders, hands, legs/under the skin. Patient believes he has been recently more tired, would collapse into bed. He has been suffering from the brain fogginess and occasional muscle cramps at night. He also endorses mouth dryness. Patient has bilateral hands numbness, most notably at the fingertips for the past 10 months. He also reports stiffness in his fingers every morning, which eases up as the day goes by. In October 2021, patient's PCP had obtained an PRANAY which returned positive, and subsequently advised patient to follow with a television installer helper. In the interim, patient was visiting [place], where he met with a television installer helper, who diagnosed him with SLE based on additional lab tests including strong positive PRANAY IgG, positive antidouble-stranded DNA confirmed by crithidia, weak positive anticardiolipin IgM (per paper lab reports brought by patient). Subsequently, patient was started on: - Hydroxychloroquine 200 mg twice daily --Pregabalin 225 mg twice daily --Short course of hydrocodone-acetaminophen 3-325 as needed Patient reports feeling better overall. He would quantify it as a 35% improvement, compared to great distress in October, almost bedridden for 2 weeks. Patient denies ulcers in mouth/nose, photosensitivity, red or painful eyes, small joint pains, history of blood clots, shortness of breath, fever, weight loss, or history of any other known autoimmune disease. Of note patient has had multiple MSK surgeries including 2 shoulder repairs, 2 hip repairs, 2 back surgeries, carpal tunnel release. He considers joint pains as part of his normal life due to that Review of systems General: No fever or recent weight loss HEENT: Dry eyes, visual changes: yes, No lumps, Difficulty swallowing: yes, no enlarging tongue, no tooth aches, Dry mouth: yes Musculoskeletal: Arthralgias: yes, Myalgias: yes, Muscle weakness: yes , Joint swelling: yes, Morning Joint Stiffness: yes and Functionally limited due to pain Hematological: easy bruising Lymphatic / Immune system: Swollen glands: no Cardiovascular: Chest pain: no, Leg swelling: yes Pulmonary: Shortness of breath: yes, cough: no Gastrointestinal: Abdominal pain: no, Diarrhea: no, Blood in stool: no, GERD symptoms: no Genitourinary: Urine output: Good Neurological: burning skin, Headaches: yes, Numbness: yes, Skin: Skin changes: yes, Hair loss: yes, flares burning pain intermittent PAST MEDICAL HISTORY Diagnosis Date Anxiety Dr. Belle Arthritis of both hips Benign neoplasm of colon Bipolar disorder (HCC) Dr. Belle DDD (degenerative disc disease), lumbar Depressive disorder, not elsewhere classified Diverticulosis of colon (without mention of hemorrhage) HLD (hyperlipidemia) 06/13/2017 Hypertension Internal hemorrhoids without mention of complication Monoclonal paraproteinemia Morbid obesity (HCC) MARCELINA (obstructive sleep apnea) 1997 Peripheral neuropathy Prediabetes 09/11/2019 Shoulder arthritis Sleep apnea Snoring PAST SURGICAL HISTORY Procedure Laterality Date ARTHROPLASTY TOTAL SHOULDER 04/03/2013 Right shoulder replacement ARTHRP ACETBLR/PROX FEM PROSTC AGRFT/ALGRFT 1992 Hip replacement, total RIGHT BACK SURGERY HX COLONOSCOPY FLX DX W/COLLJ SPEC WHEN PFRMD 08/11/1992 Colonoscopy COLONOSCOPY FLX DX W/COLLJ SPEC WHEN PFRMD 09/01/2018 Colonoscopy COLSC FLX W/RMVL OF TUMOR POLYP LESION SNARE TQ 06/26/08 ESOPHAGOGASTRODUODENOSCOPY TRANSORAL DIAGNOSTIC 05/08/2020 EGD JOINT REPLACEMENT HX PAST SURGICAL HISTORY OF 1995 L5-S1 spinal fusion with pins, rods, and bolts PAST SURGICAL HISTORY OF 03/2011 Right hip revision PAST SURGICAL HISTORY OF 1970 right shoulder surgery PAST SURGICAL HISTORY OF Left 2018 shoulder replacement Allergies / intolerances ALLERGIES Allergen Reactions Aspartame Swelling Pt gets burning sensation under skin Betadine [Povidone-* Rash Blister Lisinopril Cough Cough Losartan Cough Niacin Other: See Comments Niacin-Dermid Burning pain all over Penicillins Rash Seasonal Allergies Other: See Comments GRASS POLLEN-positive skin test 09-05-13 Sudafed [Pseudoephe* Other: See Comments Difficulty swallowing, swelling of tongue & lips Tamiflu [Oseltamivi* Shortness of Breath SOB, arm pain Trazodone Shortness of Breath Ultram [Tramadol] Per patient contraindication due to wellbutrin Medications HYDROcodone-acetaminophen (NORCO) 5-325 mg per tablet Take 1 tablet by mouth every 8 hours as needed for pain. zolpidem (AMBIEN) 10 mg metoprolol succinate ER (TOPROL XL) 25 mg 24 hr tablet TAKE 2 TABLETS ONCE DAILY amLODIPine (NORVASC) 5 mg tablet Take 1 tablet by mouth once daily. meloxicam (MOBIC) 15 mg tablet Take 0.5-1 tablets by mouth once daily. (Patient not taking: Reported on 05/20/2022) DULoxetine (CYMBALTA) 60 mg capsule Take 60 mg by mouth twice daily. hydrOXYchloroQUINE (PLAQUENIL) 200 mg tablet Take 1 tablet by mouth twice daily. pregabalin (LYRICA) 225 mg capsule Take 1 capsule by mouth twice daily for 90 days. fexofenadine (ANÍBAL ALLERGY) 180 mg tablet Take 1 tablet by mouth once daily. tamsulosin (FLOMAX) 0.4 mg Take 1 capsule by mouth daily at bedtime. azelastine (ASTELIN) 0.1% nasal spray Use 1 [place] in each nostril twice daily. fluticasone (FLONASE) 50 mcg/actuation nasal spray Use 2 Sprays in each nostril once daily. CPAP Continue BiPAP with new settings: @ 14/8 cm of water with humidification. No new equipment is needed. aspirin, enteric coated (ASPIRIN, ENTERIC COATED) 81 mg EC tablet Take 81 mg by mouth once daily. IRON, FERROUS SULFATE, ORAL Take by mouth once daily. ASCORBIC ACID (VITAMIN C ORAL) Take by mouth once daily. buPROPion (WELLBUTRIN) 75 mg tablet Take 150 mg by mouth twice daily. LORazepam 1 mg ORAL tablet Take 1 mg by mouth every 6 hours as needed. (Patient not taking: No sig reported) Social History Tobacco Use Smoking status: Former Packs/day: 1.00 Years: 10.00 Pack years: 10.00 Types: Cigarettes Quit date: 10/27/1983 Years since quittin.6 Smokeless tobacco: Never Substance Use Topics Alcohol use: Yes Comment: very rarely Drug use: No FAMILY HISTORY Problem Relation Age of Onset Cancer Mother skin Cancer Father KIDNEY other (Brain Tumor) Father Cancer Sister thyroid No Known Problems Brother Physical examination BP 148/79 Pulse 60 Temp 36.9 C (98.4 F) (Oral) Resp 18 Wt 131.7 kg (290 lb 5.5 oz) BMI 44.15 kg/m ECOG PS: 1- Restricted in physically strenuous activity. Carries out light duty. General appearance: Well appearing, alert, in no acute distress, well-hydrated, well nourished. and Overweight HEENT: No lumps, no macroglossia, no icterus. Mucous membranes pink. Neck: Supple, no adenopathy; thyroid symmetric, normal size, no bruits Back: no pain to palpation Lungs: Lungs clear to auscultation. No wheezing, rhonchi, rales. Heart: RRR without murmur, gallop, or rubs. No ectopy Abdomen: Abdomen soft, non-tender. Bowel sounds normal. No masses, organomegaly Extremities: No deformities, edema, skin discoloration, clubbing or cyanosis. Good capillary refill. Musculoskeletal: (+) joint swelling of fingers, No deformity, or tenderness Neuro: Alert and oriented x 3. Cranial nerves 2-12 grossly intact. Motor and sensation grossly intact. Gait stable. Skin: no rashes, lesions, or jaundice Plasmacytomas: No Laboratory tests WBC (k/uL) Date Value 05/20/2022 7.07 02/25/2022 7.42 01/13/2022 5.39 07/15/2021 6.43 02/07/2021 7.60 09/08/2019 5.52 06/07/2018 5.30 06/22/2017 9.72 06/13/2017 6.44 06/30/2016 7.07 04/04/2013 9.07 03/21/2013 5.44 07/01/2011 5.13 Abs Neut (ANC) (k/uL) Date Value 07/15/2021 3.67 02/07/2021 4.50 06/07/2018 3.11 06/13/2017 3.78 06/30/2016 4.07 07/01/2011 3.08 03/11/2011 2.41 02/23/2011 3.87 Abs Neut (k/uL) Date Value 05/20/2022 3.54 02/25/2022 4.22 Hemoglobin (g/dL) Date Value 05/20/2022 13.0 02/25/2022 13.3 01/13/2022 12.8 07/15/2021 13.3 02/07/2021 13.2 09/08/2019 13.6 06/07/2018 12.6 06/22/2017 11.6 06/13/2017 13.6 06/30/2016 13.5 04/04/2013 11.1 03/21/2013 13.0 07/01/2011 13.7 Platelet Count (k/uL) Date Value 05/20/2022 292 02/25/2022 277 01/13/2022 237 07/15/2021 259 02/07/2021 279 09/08/2019 267 06/07/2018 265 06/22/2017 232 06/13/2017 258 06/30/2016 272 04/04/2013 232 03/21/2013 257 07/01/2011 265 Glucose (mg/dL) Date Value 05/20/2022 114 02/25/2022 98 01/13/2022 108 07/15/2021 106 02/07/2021 118 03/25/2020 83 09/08/2019 121 12/08/2018 103 06/07/2018 80 07/07/2017 88 06/13/2017 87 11/02/2016 108 06/30/2016 80 Creatinine (mg/dL) Date Value 05/20/2022 0.76 02/25/2022 0.78 01/13/2022 0.76 07/15/2021 0.80 02/07/2021 0.92 03/25/2020 0.89 09/08/2019 0.82 12/08/2018 0.73 06/07/2018 0.72 07/07/2017 0.75 06/13/2017 0.64 11/02/2016 0.81 06/30/2016 0.88 Calcium (mg/dL) Date Value 07/15/2021 9.6 02/07/2021 9.6 03/25/2020 9.1 09/08/2019 9.3 12/08/2018 9.3 06/07/2018 8.7 07/07/2017 9.2 06/13/2017 9.3 11/02/2016 9.5 06/30/2016 9.2 Calcium, Total (mg/dL) Date Value 05/20/2022 9.1 02/25/2022 9.0 01/13/2022 9.2 M-Protein Concentration Date Value 05/20/2022 0.51 g/dL 02/25/2022 0.54 g/dL 01/13/2022 0.10 g/dL 07/15/2021 0.60 gm/dL 12/08/2018 0.63 gm/dL 03/28/2018 0.64 gm/dL 06/14/2014 0.56 gm/dL 08/13/2013 0.58 gm/dL 08/07/2012 0.65 gm/dL 08/10/2011 0.66 gm/dL 01/18/2011 0.60 gm/dL 08/23/2008 0.50 gm/dL M Azeem Quant, 24 Hr Urine Date Value 03/05/2022 0.00 g/24hr 12/10/2018 0.00 gm/24 Hr [place] Free, Serum (mg/L) Date Value 05/20/2022 19.0 02/25/2022 15.6 01/13/2022 16.0 12/08/2018 11.8 Lambda Free, Serum (mg/L) Date Value 05/20/2022 27.0 02/25/2022 27.2 01/13/2022 28.7 12/08/2018 32.7 MPA IgG, Serum (mg/dL) Date Value 03/28/2018 1,290 06/14/2014 1,230 08/13/2013 1,360 08/07/2012 1200 08/10/2011 1400 01/18/2011 1230 08/23/2008 1310 MPA IgA, Serum (mg/dL) Date Value 03/28/2018 114 06/14/2014 120 08/13/2013 139 08/07/2012 127 08/10/2011 151 01/18/2011 161 08/23/2008 184 MPA IgM, Serum (mg/dL) Date Value 03/28/2018 51 06/14/2014 47 08/13/2013 51 08/07/2012 47 08/10/2011 69 01/18/2011 48 08/23/2008 71 Interpretation (MPA) (no units) Date Value 05/20/2022 Atypical restricted bands are present in the IgG and lambda regions. Consistent with IgG lambda monoclonal gammopathy. 02/25/2022 Atypical restricted bands are present in the IgG and lambda regions. Consistent with IgG lambda monoclonal gammopathy. 01/13/2022 Atypical restricted bands are present in the IgG and lambda regions. Consistent with IgG lambda monoclonal gammopathy. 01/13/2022 Atypical restricted bands are present in the IgG and lambda regions. Consistent with IgG lambda monoclonal gammopathy. 03/28/2018 SEE COMMENT 06/14/2014 Atypical restricted bands are present in the IgG and lambda regions. Consistent with IgG lambda monoclonal gammopathy. 08/13/2013 Atypical restricted bands are present in the IgG and lambda regions. Consistent with IgG lambda monoclonal gammopathy. 08/07/2012 Atypical restricted bands are present in the IgG and lambda regions. Consistent with IgG lambda monoclonal gammopathy. 08/10/2011 PROTEIN ELECTROPHORESIS: An M-protein band is identified. IMMUNOFIXATION ELECTROPHORESIS: Immunofixation demonstrates abnormal homogeneous bands in the IgG and Lambda regions. INTERPRETATION: Consistent with monoclonal gammopathy, IgG Lambda type. Last skeletal imaging / date 02/25/2022 Result: IMPRESSION: NO LYTIC LESIONS IN THE VISUALIZED AXIAL AND APPENDICULAR SKELETON. Impression and Plan Cancer Staging No matching staging information was found for the patient. I discussed with the patient and his the presentation is of a Monoclonal Gammopathy of Undetermined Significance (MGUS) is an asymptomatic condition that is included in a spectrum of monoclonal plasma cell disorders. MGUS is characterized by a monoclonal protein < 3 g/dL (30 g/L) in the serum and < 10% monoclonal plasma cells in the bone marrow and no evidence of end-organ damage ( CRAB ), lymphoma, Wal[place]str m macroglobulinemia, or light chain amyloidosis (AL). I discussed that a diagnosis of MGUS is relatively common, affecting 3.2% of the population over the age of 50 years, and approximately 6% of the population. The natural history and pathophysiology of multiple myeloma, amyloidosis and plasma cell dyscrasias were explained. Three levels were discussed primarily as relates to IgG [place] monoclonal gammopathy which includes, but is not limited to, MGUS (low level m protein without evidence of organ damage) smoldering MM (higher m component without organ damage, or multiple myeloma. The current criteria for active MM requiring treatment can be remembered by the mnemonic SLiM CRAB (Adalberto SV, et al., The Lancet. Oncol. Aug 2014;15(12):p786-k773.) S-Sixty percent or greater clonal plasma cells, Li- An elevated serum free light chains (kappa/lambda ratio >100, M- Magnetic Resonance Imaging (MRI) with greater than 1 focal lesion >5mm, C- Calcium elevation (>11.0g/dL) R- Renal insufficiency or failure (creat >2.0g/dL and related to the paraprotein) A- Anemia (hemoglobin less than 10 or a 2 gram drop from baseline), B- bone disease (osteoporosis or lytic lesions). We reviewed symptoms such as fatigue, easy bruising, or abnormal bleeding that may indicate active multiple myeloma with cytopenias. Also bone pain or fractures may indicate active multiple myeloma. Other conditions such as weight loss, nephrotic syndrome with edema, or unexplained dyspnea , neuropathy or symptoms of hyperviscosity may lead to think about an additional diagnoses. We also discussed about how to monitor this patient's using some predictors of risk of progression including the amount of M protein (more than 1.5 g/dL), non-IgG isotype or free light chain ratio less than 0.26 or more than 1.65. We will get repeat immunoglobulin levels and serum free light chains (kappa and lambda) to further investigate his paraproteinemia. The evaluation will also include B2M, CBC with differential, Complete chemistry panel, 24hr urine studies. Will plan to present patient at the next [facility] Review Board and then most likely ask him to undergo a bone marrow biopsy and aspirate. Today he is agreeable to having a Skeletal survey to rule out lytic lesions. Upon review of the available data, is likely that Mr De La Vega will fall into the category of Monoclonal Gammopathy of Undetermined Significance (MGUS). If so, we would plan to monitor Myeloma labs every 3 months initially, then every 6 months. These would include SPEP and UPEP with immunefixation, CBC with Differential, Beta-2 Microglobulin, 24 hr Urine for Total protein, Complete chemistry Panel, and [place]/Lambda, free serum and urine evaluation. He was asked to call with worsening symptoms of fatigue, back or bony pain, activity intolerance. Next follow-up in 3 months. ASSESSMENT/PLAN: 1. Gammopathy - ICD9: 273.9, ICD10: D47.2 (primary diagnosis) - PROTEIN ELECTROPHORESIS SERUM W/INTERP - MONOCLONAL PROTEIN, SERUM (BLOOD) - CBC + DIFF - COMP METABOLIC PANEL - CT WHOLE BODY SKULL TO KNEE WO IVCON 2. Sore of lip - ICD9: 528.5, ICD10: K13.0 - VITAMIN B6/PYRIDOXIN - VITAMIN B2/RIBOFLAV Philippe Dawson APRN.[facility] Hematologic Oncology and Blood Disorders [facility] [place] [id number] Email: [email or web address] CC: Dr. Pat Seo documented in this encounter [facility] 05-28-2022 Nurse Note Additional intake questions: Has the patient had fever, nausea, vomiting, diarrhea, constipation, fatigue for > 1 week? No Does the patient have a decreased appetite? No Does patient want to see a Slackline Operator? No (yes to any of above refer patient to schedulers for dietitian appointment) ) Does patient have any new or increased numbness or tingling of extremities? Yes, HANDS AND FEET Is patient interested in fertility information? No Does patient need any prescription refills? Yes, LIP notified Does patient have an advanced directive in place? Yes, copies are in [email or web address] Electronically Signed By: Nusrat Gonzalez LPN documented in this encounter [facility] 05-20-2022 History of Present illness Narrative CHIEF COMPLAINT Patient presents with: Mass: Pt feels that it is fluid HISTORY OF PRESENT ILLNESS Zayda De La Vega is a 71 year old male who presents here today for evaluation of stomach mass. I last saw this patient on 04/19/22. Abdominal mass Patient feels like he has fluid in his abdominal wall. When he lays down the ridge protrudes. He denies any abdominal pain or bowel changes Health Maintenance Due for advance directive discussion. Labs reviewed. Past medical history, appointments, medications, allergies reviewed. REVIEW OF SYSTEMS Pertinent positives/ negatives: General: Feels well, no fever, no chills, +obesity. HEENT: No sinus congestion, earache, sore throat. Cardiac: No chest pain, palpitations Resp: No cough, wheeze, shortness of breath GI: No reflux symptoms, food intolerance, bowel changes. +abdominal mass : No urinary frequency, dysuria. MS: No pain or joint complaints. PAST MEDICAL HISTORY PAST MEDICAL HISTORY Diagnosis Date Anxiety Dr. Belle Arthritis of both hips Benign neoplasm of colon Bipolar disorder (HCC) Dr. Belle DDD (degenerative disc disease), lumbar Depressive disorder, not elsewhere classified Diverticulosis of colon (without mention of hemorrhage) HLD (hyperlipidemia) 06/13/2017 Hypertension Internal hemorrhoids without mention of complication Monoclonal paraproteinemia Morbid obesity (HCC) MARCELINA (obstructive sleep apnea) 1998 Peripheral neuropathy Prediabetes 09/11/2019 Shoulder arthritis Sleep apnea Snoring PHYSICAL EXAMINATION BP 129/73 Pulse 65 Ht 172.7 cm (5' 8) Wt 131.5 kg (290 lb) SpO2 96% BMI 44.09 kg/m General: Alert, well developed, well nourished, no distress, pleasant and cooperative. Obese. Heart: Regular rate and rhythm. Normal S1 and S2. No murmurs, rubs, or gallops. Lungs: Clear to auscultation bilaterally. No respiratory distress. No wheezes, rales, or rhonchi. Abdomen: diastasis recti is noted. No fluid splash, no hepatomegaly Extremities: Feet/ankles without edema, posterior tibial pulses full and symmetrical. Assessment/Plan (E66.01) Obesity, Class III, BMI 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) ([facility]) (primary encounter diagnosis) (M62.08) Diastasis recti Comment: Per PE. Patient would like to lose weight Plan: [facility]ULT [facility] (M15.9) Primary osteoarthritis involving multiple joints Comment: in need of refill Plan: HYDROcodone-acetaminophen (NORCO) 5-325 mg per tablet (F33.9) Major depression, recurrent, chronic ([facility]) Comment: well controlled Plan: continue on current regimen Requested Prescriptions Signed Prescriptions Disp Refills HYDROcodone-acetaminophen (NORCO) 5-325 mg per tablet 21 tablet 0 Sig: Take 1 tablet by mouth every 8 hours as needed for pain. RTO: 3 months Scribe Attestation: By signing my name below, IRosi, attest that this documentation has been prepared under the direction and in the presence of Alex Zarate M.D. Electronically Signed: Celsa Tavera. May 20, 2022 8:02 AM Provider Attestation: IEdinson MD, personally performed the services described in this documentation. All medical record entries made by the scribe were at my direction and in my presence. I have reviewed the chart and discharge instructions (if applicable) and agree that the record reflects my personal performance and is accurate and complete. Electronically Signed: Edinson Zarate MD May 20, 2022 5:19 PM documented in this encounter [facility] 04-19-2022 History of Present illness Narrative Radiology Service Progress Note PATIENT NAME: Zayda De La Vega DATE OF SERVICE: April 19, 2022 TIME: 3:31 PM PATIENT IDENTITY VERIFICATION COMPLETED USING TWO (2) IDENTIFIERS: Name and Date of confirmed by patient verbally. FALL SCREENING: Has the patient had 2 falls in the last year or 1 fall with injury or currently using an Ambulatory Assistive Device (Walker, Cane, Wheelchair, Crutches, etc.)? No PATIENT GENDER DATA: Male PATIENT RELEVANT IMPLANT DATA REVIEWED: Not Applicable RADIOLOGY DEPARTMENT: General X-ray: Exam(s) Completed: Upper Extremity X-Ray(s): Elbow, right PERIPHERAL IV DATA: Not applicable SIGNED BY: RT Marshall(R) April 19, 2022 3:31 PM documented in this encounter [facility] 04-19-2022 History of Present illness Narrative CHIEF COMPLAINT Patient presents with: Follow Up HISTORY OF PRESENT ILLNESS Zayda De La Vega is a 71 year old male who presents here today for follow up management of multiple medical issues. I last saw this patient on 01/14/22. Hypertension Patient is managed on metoprolol and Norvasc His BP at home is 140/70s Lupus Patient is managed on Mobic, hydrocodone, Cymbalta and Lyrica. Patient says that his pain has improved since starting his new regimen Arm Pain Patient says that he was lifting something and he heard a pop in his arm. Since this episode he continues to hear cracks. He has a good range of motion but has difficulty lifting. Health Maintenance Due for advance directive discussion. Labs reviewed. Past medical history, appointments, medications, allergies reviewed. REVIEW OF SYSTEMS Pertinent positives/ negatives: General: Feels well, no fever, no chills, +obesity. HEENT: No sinus congestion, earache, sore throat. Cardiac: No chest pain, palpitations +elevated BP Resp: No cough, wheeze, shortness of breath GI: No reflux symptoms, food intolerance, bowel changes. : No urinary frequency, dysuria. MS: +joint pain +arm pain PAST MEDICAL HISTORY PAST MEDICAL HISTORY Diagnosis Date Anxiety Dr. Belle Arthritis of both hips Benign neoplasm of colon Bipolar disorder (HCC) Dr. Belle DDD (degenerative disc disease), lumbar Depressive disorder, not elsewhere classified Diverticulosis of colon (without mention of hemorrhage) HLD (hyperlipidemia) 06/13/2017 Hypertension Internal hemorrhoids without mention of complication Monoclonal paraproteinemia Morbid obesity (HCC) MARCELINA (obstructive sleep apnea) 1997 Peripheral neuropathy Prediabetes 09/11/2019 Shoulder arthritis Sleep apnea Snoring PHYSICAL EXAMINATION BP 140/72 Pulse 68 Ht 172.7 cm (5' 8) Wt 129.3 kg (285 lb) SpO2 95% BMI 43.33 kg/m General: Alert, well developed, well nourished, no distress, pleasant and cooperative. Obese. Heart: Regular rate and rhythm. Normal S1 and S2. No murmurs, rubs, or gallops. Lungs: Clear to auscultation bilaterally. No respiratory distress. No wheezes, rales, or rhonchi. Abdomen: Soft, non-tender, no distention. Extremities: Feet/ankles without edema, posterior tibial pulses full and symmetrical. Data Reviewed 03/11/22 Surgical pathology- FINAL DIAGNOSIS A. Oral mucosa, right cheek, biopsy: - Irritation fibroma, negative for neoplasm. (See comment.) 03/09/22 Factor XII- within normal limits Factor XI- within normal limits Factor IX- within normal limits Factor VIII- within normal limits Lupus- abnormal Beta 2- within normal limits Cardiolipin IGM- 13.6 high Cardiolipin IGG- 17.2 high Cardiolipin IGA- within normal limits APTT- within normal limits Prothrombin- within normal limits Vitamin B12- within normal limits C4- within normal limits C3- within normal limits Lupus- Component Ref Range & Units 1 mo ago 3 mo ago Platelet Neut Negative Negative Negative DRVVT Screen 32.0 - 45.7 seconds 40.5 42.8 DRVVT Confirm Ratio <1.32 1.10 1.16 DRVVT 1:1 Mix 32.0 - 45.7 seconds 39.1 38.1 Hexagonal Phase Screen 34.0 - 51.8 seconds 57.6 High 61.5 High Hexagonal Phase Confirm 34.2 - 47.9 seconds 49.0 High 49.2 High Hexagonal Phase Delta <7.1 delta seconds 8.6 High 12.4 High APTT Screen 24.0 - 35.1 seconds 35.9 High 38.1 High Immediate PTT 1:1 Mix <33.2 seconds 30.1 32.2 Incubated PTT 1:1 Mix <35.0 seconds 31.9 34.2 Thrombin Time <18.6 seconds 17.0 18.4 Sed rate- within normal limits c- reactive- within normal limits DNA AB- 51.52 high 03/05/22 Prot elec- within normal limits Monoclonal- within normal limits 02/25/22 [place]- lambda (27.2 high) Immunofixation- MPA (present) Immunoglobulin- within normal limits Protein- Component Ref Range & Units 1 mo ago 3 mo ago 9 mo ago 3 yr ago 4 yr ago 7 yr ago 8 yr ago Albumin for SPE 3.37 - 4.23 g/dL 3.86 3.96 3.83 R 3.93 R 3.72 R 4.01 R 3.61 R Alpha 1 Globulin 0.18 - 0.31 g/dL 0.21 0.18 0.23 R 0.22 R 0.25 R 0.23 R 0.23 R Alpha 2 Globulin 0.52 - 0.97 g/dL 0.69 0.60 0.74 R 0.69 R 0.68 R 0.55 R 0.60 R Beta Globulin 0.84 - 1.36 g/dL 0.91 0.89 0.98 R 0.99 R 0.94 R 0.93 R 0.96 R Gamma Globulin 0.70 - 1.44 g/dL 1.03 1.08 1.12 R 1.27 R 1.32 R 1.18 R 1.20 R Interpretation (Prot Electro) No definitive M protein is identified on protein electrophoresis. An M protein is identified on protein electrophoresis. Abnormal An M protein is identified on protein electrophoresis. Abnormal SEE COMMENT R, CM SEE COMMENT R, CM SEE COMMENT R, CM An M protein is identified on protein electrophoresis. See separate immunofixation report for characterization of the M protein. R An M protein is identified on protein electrophoresis. See separate immunofixation report for characterization of the M protein. R Interpretation Comment for Protein Electrophoresis See separate immunofixation report for characterization of monoclonal gammopathy. See separate immunofixation report for characterization of monoclonal gammopathy. M-Protein Location Gamma Fraction 1 Gamma Fraction 1 Gamma fraction Gamma fraction Gamma fraction Gamma fraction Gamma fraction M-Protein Concentration <=0.00 g/dL 0.54 High Protein total- within normal limits Vasc- within normal limits Calcium- within normal limits Phosphorus- within normal limits LD- 127 low CBC+DIFF- Component Ref Range & Units 1 mo ago 3 mo ago 9 mo ago 1 yr ago 2 yr ago 3 yr ago 4 yr ago WBC 3.70 - 11.00 k/uL 7.42 5.39 6.43 7.60 5.52 5.30 9.72 RBC 4.20 - 6.00 m/uL 4.41 4.24 4.36 4.48 4.51 4.27 3.74 Low Hemoglobin 13.0 - 17.0 g/dL 13.3 12.8 Low 13.3 13.2 13.6 12.6 Low 11.6 Low Hematocrit 39.0 - 51.0 % 40.2 39.3 39.7 41.5 42.3 40.8 34.5 Low MCV 80.0 - 100.0 fL 91.2 92.7 91.1 92.6 93.8 95.6 92.2 MCH 26.0 - 34.0 pg 30.2 30.2 30.5 R 29.5 R 30.2 R 29.5 R 31.0 R MCHC 30.5 - 36.0 g/dL 33.1 32.6 33.5 31.8 32.2 30.9 33.6 RDW-CV 11.5 - 15.0 % 13.7 14.3 14.0 14.1 13.5 13.9 13.6 Platelet Count 150 - 400 k/uL 277 237 259 279 267 265 232 MPV 9.0 - 12.7 fL 8.4 Low 9.4 8.2 Low 8.9 Low 9.0 8.3 Low 8.9 Low Neut% % 56.8 57.0 59.3 58.7 Abs Neut 1.45 - 7.50 k/uL 4.22 3.67 4.50 3.11 Lymph% % 27.8 27.4 27.9 25.1 Abs Lymph 1.00 - 4.00 k/uL 2.[address] [place]% % 9.8 11.[address] [place] <0.87 k/uL 0.73 0.73 0.68 0.59 Eosin% % 3.4 3.6 3.4 4.2 Abs Eosin <0.46 k/uL 0.25 0.23 0.26 0.22 Baso% % 1.1 0.6 0.5 0.9 Abs Baso <0.11 k/uL 0.08 0.04 0.04 0.05 Immature Gran % % 1.1 Abs Immature Gran <0.10 k/uL 0.08 NRBC /100 WBC 0.0 Absolute nRBC <0.01 k/uL <0.01 <0.01 <0.01 <0.01 <0.01 <0.01 0.00 R Diff Type Auto B2- within normal limits Mag- within normal limits Copper- within normal limits Assessment/Plan (M25.521) Elbow pain, right (primary encounter diagnosis) Comment: pain with lifting. Not likely a break but want to rule it out Plan: XR ELBOW SPECIAL VIEWS AP/LAT/OTHER RIGHT No medications selected for refill. RTO: 6 months Scribe Attestation: By signing my name below, I, Rosi Martínez, attest that this documentation has been prepared under the direction and in the presence of Alex Zarate M.D. Electronically Signed: Celsa Tavera. April 19, 2022 9:05 AM Provider Attestation: I, Edinson Zarate MD, personally performed the services described in this documentation. All medical record entries made by the scribe were at my direction and in my presence. I have reviewed the chart and discharge instructions (if applicable) and agree that the record reflects my personal performance and is accurate and complete. Electronically Signed: Edinson Zarate MD. April 20, 2022 10:05 AM documented in this encounter [facility] 04-02-2022 Miscellaneous Notes The following approved medication requests have been transmitted electronically. Signed Prescriptions Disp Refills meloxicam (MOBIC) 15 mg tablet 90 tablet 2 Sig: Take 0.5-1 tablets by mouth once daily. GANESH: No Edinson Zarate MD documented in this encounter [facility] 03-13-2022 Miscellaneous Notes Labs Normal APRs LAC indeterminate Has borderline ACL Ab dsDNA (+) as before B12 nl Reviewed case with Hematology They will contact patient with next steps Referred patient to ENT for oral lesion Pat Seo MD documented in this encounter [facility] 03-12-2022 Miscellaneous Notes Pharmacy verified in [facility] Patient has been identified by name and date of : Yes Patient aware RX will be sent to pharmacy. No need to notify patient. Patient phones for refill(s): Pending Prescriptions Disp Refills HYDROCODONE 5 MG-ACETAMINOPHEN 325 MG TABLET 21 tablet 0 Sig: Take 1 tablet by mouth every 8 hours as needed for pain. SALAS Class: C-II GANESH: No Date of last office visit : 07/20/2021 Date of next office visit : 04/19/2022 Last 2 Encounter Wt Readings: Date: Wt: 03/09/2022 131.9 kg (290 lb 12.8 oz) 02/25/2022 132 kg (291 lb 0.1 oz) Not applicable Please advise. Gricelda Lloyd LPN documented in this encounter [facility] 03-11-2022 Miscellaneous Notes Mr De La Vega was reached at [phone]. Explained that his case was reviewed at the Tumor Board meeting yesterday afternoon and the concesus of the physicians present was that a bone marrow biopsy was not needed at this time. Mr De La Vega verbalized understanding outcome and recommendation. We will plan for repeat labs and follow up visit in approximately 3 months. Mr De La Vega will call with any questions, concerns or change in status. documented in this encounter [facility] 03-11-2022 History of Present illness Narrative Head and Neck Surgery Consult Patient: Zayda De La Vega Age: [id number] year old Provider: Diana Whyte MD MS FACS Date of visit: 03/11/2022 Referring Physician: Dr. Pat Seo Reason for Consult: cheek mass Consultation requested by Dr. Pat Seo for an opinion regarding cheek mass. My final recommendations will be communicated back to the requesting physician by way of shared medical record or letter via US mail. Chief Complaint: History of Present Illness: Zayda De La Vega is a 71 year old male presenting with a cheek mass. The mass has been there for 3 months. Non painful, no bleeding. Remote smoker. The patient Is being treated for Lupus. Not affecting chewing or swallowing. Patient is tolerating a full diet by mouth, maintaining their weight, and energy level is stable. He denies any history of dysphagia, odynophagia, dysphonia, throat pain, otalgia, cough, hemoptysis, epistaxis, dysarthria, trismus, dyspnea, fever, chills, night sweats, or unintentional weight loss. History: PAST MEDICAL HISTORY Diagnosis Date Anxiety Dr. Belle Arthritis of both hips Benign neoplasm of colon Bipolar disorder (HCC) Dr. Belle DDD (degenerative disc disease), lumbar Depressive disorder, not elsewhere classified Diverticulosis of colon (without mention of hemorrhage) HLD (hyperlipidemia) 06/13/2017 Hypertension Internal hemorrhoids without mention of complication Monoclonal paraproteinemia Morbid obesity (HCC) MARCELINA (obstructive sleep apnea) 1997 Peripheral neuropathy Prediabetes 09/11/2019 Shoulder arthritis Sleep apnea Snoring PAST SURGICAL HISTORY Procedure Laterality Date ARTHROPLASTY TOTAL SHOULDER 04/03/2013 Right shoulder replacement ARTHRP ACETBLR/PROX FEM PROSTC AGRFT/ALGRFT 1992 Hip replacement, total RIGHT BACK SURGERY HX COLONOSCOPY FLX DX W/COLLJ SPEC WHEN PFRMD 08/11/1992 Colonoscopy COLONOSCOPY FLX DX W/COLLJ SPEC WHEN PFRMD 09/01/2018 Colonoscopy COLSC FLX W/RMVL OF TUMOR POLYP LESION SNARE TQ 06/26/08 ESOPHAGOGASTRODUODENOSCOPY TRANSORAL DIAGNOSTIC 05/08/2020 EGD JOINT REPLACEMENT HX PAST SURGICAL HISTORY OF 1995 L5-S1 spinal fusion with pins, rods, and bolts PAST SURGICAL HISTORY OF 03/2011 Right hip revision PAST SURGICAL HISTORY OF 1970 right shoulder surgery PAST SURGICAL HISTORY OF Left 2018 shoulder replacement FAMILY HISTORY Problem Relation Age of Onset Cancer Mother skin Cancer Father KIDNEY other (Brain Tumor) Father Cancer Sister thyroid No Known Problems Brother Social History Tobacco Use Smoking status: Former Smoker Packs/day: 1.00 Years: 10.00 Pack years: 10.00 Types: Cigarettes Quit date: 10/27/1983 Years since quittin.3 Smokeless tobacco: Never Used Substance Use Topics Alcohol use: Yes Comment: very rarely Drug use: No Current Medication: Current Outpatient Medications Medication Sig Dispense Refill famotidine (PEPCID) 20 mg tablet (Patient not taking: Reported on 03/09/2022 ) DULoxetine (CYMBALTA) 60 mg capsule Take 60 mg by mouth once daily. HYDROcodone-acetaminophen (NORCO) 5-325 mg per tablet Take 1 tablet by mouth every 8 hours as needed for pain. 21 tablet 0 diclofenac, EC, (VOLTAREN) 50 mg EC tablet Take 1 tablet by mouth twice daily with meals. As needed for arthritis pain 60 tablet 2 hydrOXYchloroQUINE (PLAQUENIL) 200 mg tablet Take 1 tablet by mouth twice daily. 180 tablet 1 pregabalin (LYRICA) 225 mg capsule Take 1 capsule by mouth twice daily for 90 days. 180 capsule 1 fexofenadine (ANÍBAL ALLERGY) 180 mg tablet Take 1 tablet by mouth once daily. amLODIPine (NORVASC) 5 mg tablet Take 1 tablet by mouth once daily. 30 tablet 2 metoprolol succinate ER (TOPROL XL) 25 mg 24 hr tablet Take 2 tablets by mouth once daily. 180 tablet 1 tamsulosin (FLOMAX) 0.4 mg Take 1 capsule by mouth daily at bedtime. 90 capsule 1 azelastine (ASTELIN) 0.1% nasal spray Use 1 [place] in each nostril twice daily. 30 mL 5 fluticasone (FLONASE) 50 mcg/actuation nasal spray Use 2 Sprays in each nostril once daily. 1 Bottle 5 CPAP Continue BiPAP with new settings: @ 14/8 cm of water with humidification. No new equipment is needed. 1 Device 0 aspirin, enteric coated (ASPIRIN, ENTERIC COATED) 81 mg EC tablet Take 81 mg by mouth once daily. IRON, FERROUS SULFATE, ORAL Take by mouth once daily. ASCORBIC ACID (VITAMIN C ORAL) Take by mouth once daily. buPROPion (WELLBUTRIN) 75 mg tablet Take 150 mg by mouth three times daily. LORazepam 1 mg ORAL tablet Take 1 mg by mouth every 6 hours as needed. No current facility-administered medications for this visit. Allergies: ALLERGIES Allergen Reactions Aspartame Swelling Pt gets burning sensation under skin Betadine [Povidone-* Rash Blister Lisinopril Cough Cough Losartan Cough Niacin Other: See Comments Niacin-Dermid Burning pain all over Penicillins Rash Seasonal Allergies Other: See Comments GRASS POLLEN-positive skin test 09-05-13 Sudafed [Pseudoephe* Other: See Comments Difficulty swallowing, swelling of tongue & lips Tamiflu [Oseltamivi* Shortness of Breath SOB, arm pain Trazodone Shortness of Breath Ultram [Tramadol] Per patient contraindication due to wellbutrin Review of Systems - A 12-point review of systems was performed and negative except for previously noted. Physical Exam: Constitutional - General Appearance: Normocephalic and atraumatic. Well developed, well nourished. Communication: Speaks with a normal voice without hoarseness. Head & Face - Overall: No obvious scars, lesions or masses. Parotid glands: No masses bilaterally and without any asymmetry. Submandibular glands: No masses bilaterally and without any asymmetry. Facial strength: Normal and equal bilaterally. Eyes - Extraocular muscles grossly intact. Sclerae and conjunctivae noninjected and anicteric. Ear, Nose, Mouth & Throat - Ears: No external deformities. Left and right external auditory canals are patent, bilateral tympanic membranes intact without effusion. Nasal exam: No external deformities. Mucosa is pink. Septum is midline. Visible turbinates are normal on anterior rhinoscopy. Mastication: There is no significant trismus. Oral Cavity: Right exophytic cheek mass (~3mm). Tongue is soft, midline, and mobile bilaterally. Floor of mouth is soft. Palate is intact and elevates symmetrically. Oropharynx: The oropharynx is clear and symmetric. The base of tongue is soft. Tonsils are symmetric without ulceration. No masses visualized or palpated. Neck: No masses or lymphadenopathy palpated. Trachea is midline and mobile. Thyroid: Soft and nontender. No asymmetry, thyromegaly, or thyroid nodules on palpation. Skin - No edema, no discoloration, no ulceration, no masses or lesions. Respiratory - Normal work of breathing on room air. No stridor or abnormal breath sounds. Neurologic - General: Alert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 risk for diabetes (prediabetes). Fasting plasma glucose results greater than or equal to 126 mg/dL meet the criteria for diagnosis of diabetes. In the absence of unequivocal hyperglycemia, results should be confirmed by repeat testing. In a patient with classic symptoms of hyperglycemia or hyperglycemic crisis, random plasma glucose results greater than or equal to 200 mg/dL meet the criteria for diagnosis of diabetes. Reference: Standards of Medical Care in Diabetes 2016, [place] [employer]. Diabetes Care. 2016.39(Suppl 1). BUN 02/25/2022 17 9 - 24 mg/dL Final Creatinine 02/25/2022 0.78 0.73 - 1.22 mg/dL Final Sodium 02/25/2022 136 136 - 144 mmol/L Final Potassium 02/25/2022 4.7 3.7 - 5.1 mmol/L Final Chloride 02/25/2022 103 97 - 105 mmol/L Final CO2 02/25/2022 24 22 - 30 mmol/L Final Anion Gap 02/25/2022 9 9 - 18 mmol/L Final Estimated Glomerular Filtration Ra* 02/25/2022 94 >=60 mL/min/1.73m Final Estimated Glomerular Filtration Rate (eGFR) is calculated using the 2020 CKD-EPI creatinine equation. This equation utilizes serum creatinine, sex, and age as parameters. The creatinine assay has traceable calibration to isotope dilution-mass spectrometry. Refer to KDIGO guidelines for clinical interpretation. In patients with unstable renal function, e.g. those with acute kidney injury, the eGFR may not accurately reflect actual GFR. LD 02/25/2022 127 (A) 135 - 225 U/L Final Phosphorus 02/25/2022 3.4 2.7 - 4.8 mg/dL Final Uric Acid 02/25/2022 5.7 4.0 - 8.1 mg/dL Final Normalized Calcium 02/25/2022 1.22 1.08 - 1.30 mmol/L Final Collection tube not filled. Ionized Calcium may be falsely decreased. Calcium Ionized, Whole Blood 02/25/2022 1.25 1.08 - 1.30 mmol/L Final Collection tube not filled. Ionized Calcium may be falsely decreased. Protein, Total 02/25/2022 6.7 6.3 - 8.0 g/dL Final Appointment on 01/13/2022 Component Date Value Ref Range Status Protein, Total 01/13/2022 6.7 6.3 - 8.0 g/dL Final Albumin 01/13/2022 4.1 3.9 - 4.9 g/dL Final Calcium, Total 01/13/2022 9.2 8.5 - 10.2 mg/dL Final Bilirubin, Total 01/13/2022 0.3 0.2 - 1.3 mg/dL Final Alkaline Phosphatase 01/13/2022 48 38 - 113 U/L Final AST 01/13/2022 21 14 - 40 U/L Final ALT 01/13/2022 25 10 - 54 U/L Final Glucose 01/13/2022 108 (A) 74 - 99 mg/dL Final The [place] [employer] (ADA) provides guidance for cutoff values for fasting glucose and random glucose. The ADA defines fasting as no caloric intake for at least 8 hours. Fasting plasma glucose results between 100 to 125 mg/dL indicate increased risk for diabetes (prediabetes). Fasting plasma glucose results greater than or equal to 126 mg/dL meet the criteria for diagnosis of diabetes. In the absence of unequivocal hyperglycemia, results should be confirmed by repeat testing. In a patient with classic symptoms of hyperglycemia or hyperglycemic crisis, random plasma glucose results greater than or equal to 200 mg/dL meet the criteria for diagnosis of diabetes. Reference: Standards of Medical Care in Diabetes 2016, [place] [employer]. Diabetes Care. 2016.39(Suppl 1). BUN 01/13/2022 16 9 - 24 mg/dL Final Creatinine 01/13/2022 0.76 0.73 - 1.22 mg/dL Final Sodium 01/13/2022 138 136 - 144 mmol/L Final Potassium 01/13/2022 4.5 3.7 - 5.1 mmol/L Final Chloride 01/13/2022 105 97 - 105 mmol/L Final CO2 01/13/2022 20 (A) 22 - 30 mmol/L Final Anion Gap 01/13/2022 13 9 - 18 mmol/L Final Estimated Glomerular Filtration Ra* 01/13/2022 95 >=60 mL/min/1.73m Final Estimated Glomerular Filtration Rate (eGFR) is calculated using the 2020 CKD-EPI creatinine equation. This equation utilizes serum creatinine, sex, and age as parameters. The creatinine assay has traceable calibration to isotope dilution-mass spectrometry. Refer to KDIGO guidelines for clinical interpretation. In patients with unstable renal function, e.g. those with acute kidney injury, the eGFR may not accurately reflect actual GFR. Cholesterol, Total 01/13/2022 171 <200 mg/dL Final <200 mg/dL, Desirable 200-239 mg/dL, Borderline high >239 mg/dL, High Triglyceride 01/13/2022 259 (A) <150 mg/dL Final <150 mg/dL, Normal 150-199 mg/dL, Borderline high 200-499 mg/dL, High >499 mg/dL, Very high HDL Cholesterol 01/13/2022 30 (A) >39 mg/dL Final 40-59 mg/dL, Acceptable >59 mg/dL, High: Negative risk factor for coronary heart disease <40 mg/dL, Low: Positive risk factor for coronary heart disease Non HDL Cholesterol 01/13/2022 141 (A) <130 mg/dL Final <130 mg/dL, Optimal 130-159 mg/dL, Near optimal/above optimal 160-189 mg/dL, Borderline high 190-219 mg/dL, High >219 mg/dL, Very high Secondary prevention optimal non HDL Cholesterol levels are recommended to be <100 mg/dL Fasting Time 01/13/2022 12 hrs Final VLDL Cholesterol 01/13/2022 52 (A) <30 mg/dL Final TC:HDL Ratio 01/13/2022 5.70 (A) <5.10 Final LDL Cholesterol 01/13/2022 89 <100 mg/dL Final <100 mg/dL, Optimal 100-129 mg/dL, Near optimal/above optimal 130-159 mg/dL, Borderline high 160-189 mg/dL, High >189 mg/dL, Very high Secondary prevention optimal LDL Cholesterol levels are recommended to be < 70 mg/dL LDL:HDL Ratio 01/13/2022 2.97 (A) <2.54 Final Reference: 1. National Cholesterol Education Program ATP III Guideline At-A-Glance Quick Desk Reference: National Heart, Lung, and Blood [place]. National Institutes of Health. 2001: NIH Publication No. 01-3305. 2. An International Atherosclerosis Society position paper: global recommendations for the management of dyslipidemia: executive summary, Atherosclerosis. 2014: 232(2):410-413. WBC 01/13/2022 5.39 3.70 - 11.00 k/uL Final RBC 01/13/2022 4.24 4.20 - 6.00 m/uL Final Hemoglobin 01/13/2022 12.8 (A) 13.0 - 17.0 g/dL Final Hematocrit 01/13/2022 39.3 39.0 - 51.0 % Final MCV 01/13/2022 92.7 80.0 - 100.0 fL Final MCH 01/13/2022 30.2 26.0 - 34.0 pg Final MCHC 01/13/2022 32.6 30.5 - 36.0 g/dL Final RDW-CV 01/13/2022 14.3 11.5 - 15.0 % Final Platelet Count 01/13/2022 237 150 - 400 k/uL Final MPV 01/13/2022 9.4 9.0 - 12.7 fL Final Absolute nRBC 01/13/2022 <0.01 <0.01 k/uL Final Color 01/13/2022 Light Yellow Yellow Final Clarity 01/13/2022 Clear Clear Final Glucose, Urine 01/13/2022 Negative Negative Final Bilirubin, Urine 01/13/2022 Negative Negative Final Ketones, Urine 01/13/2022 Negative Negative Final Specific [place], Ur 01/13/2022 1.012 1.005 - 1.030 Final Hemoglobin/Blood,Ur 01/13/2022 Negative Negative Final pH, Urine 01/13/2022 6.0 5.0 - 8.0 Final Protein, Urine 01/13/2022 Negative Negative Final Urobilinogen 01/13/2022 Negative Negative Final Nitrites 01/13/2022 Negative Negative Final Leuk Esterase 01/13/2022 Negative Negative Final WBC, Urine 01/13/2022 0-5 /HPF 0-5 /HPF Final RBC, Urine 01/13/2022 0-3 /HPF 0-3 /HPF Final CK 01/13/2022 246 51 - 298 U/L Final Result ([facility]) 01/13/2022 No M protein is identified. No M protein is identified. Final Interpretation ([facility]) 01/13/2022 N/A Final Staff Review ([facility]) 01/13/2022 Reviewed by Sonny Granados MD, Ph.D ([id number]) Final Platelet Neut 01/13/2022 Negative Negative Final DRVVT Screen 01/13/2022 42.8 32.0 - 45.7 seconds Final DRVVT Confirm Ratio 01/13/2022 1.16 <1.32 Final DRVVT 1:1 Mix 01/13/2022 38.1 32.0 - 45.7 seconds Final Hexagonal Phase Screen 01/13/2022 61.5 (A) 34.0 - 51.8 seconds Final Hexagonal Phase Confirm 01/13/2022 49.2 (A) 34.2 - 47.9 seconds Final Hexagonal Phase Delta 01/13/2022 12.4 (A) <7.1 delta seconds Final APTT Screen 01/13/2022 38.1 (A) 24.0 - 35.1 seconds Final Immediate PTT 1:1 Mix 01/13/2022 32.2 <33.2 seconds Final Incubated PTT 1:1 Mix 01/13/2022 34.2 <35.0 seconds Final Thrombin Time 01/13/2022 18.4 <18.6 seconds Final PT Sec 01/13/2022 11.3 9.7 - 13.0 sec Final INR 01/13/2022 1.1 0.9 - 1.3 Final Vitamin K Antagonist (VKA) Therapeutic Range: INR 2 to 3 (Target INR of 2.5) Note: For patients treated with VKA drugs, such as warfarin, the [place] [employer] 2012 Guideline recommends a therapeutic INR range of 2 to 3 (target INR of 2.5). This recommendation includes high-risk patients with antiphospholipid syndrome with previous arterial or venous thromboembolism, current-generation mechanical or bioprosthetic aortic heart valve replacement. Note: Patients with mechanical aortic valve replacement and additional risk factors for thromboembolic events (atrial fibrillation, previous thromboembolism, LV dysfunction, hypercoagulable conditions) or an older generation mechanical AVR (i.e., ball in-Cage) or any mechanical MVR should have a INR therapeutic range of 2.5 to 3.5 (target INR of 3). Sunita GH, et al. Chest 2012, 141:7S-47S Donald RA, et al. [facility] 2017, 70: 252-289 APTT 01/13/2022 27.6 23.0 - 32.4 sec Final Cardiolipin Ab, IgA 01/13/2022 <9.0 <12.0 APL Final <12 APL Negative 12-20 APL Indeterminate >20 APL Positive The following results were obtained with the [employer] Lite [place] IgA III [place]. Cardiolipin IgA values obtained with the different manufacturers' assay methods may not be used interchangeably. The magnitude of the reported IgA levels cannot be correlated to an endpoint titer. Cardiolipin Ab, IgG 01/13/2022 10.6 <15.0 GPL Final <15 GPL Negative 15-20 GPL Indeterminate >20 GPL Positive The following results were obtained with the [employer] Lite [place] IgG III [place]. Cardiolipin IgG values obtained with the different manufacturers' assay methods may not be used interchangeably. The magnitude of the reported IgG levels cannot be correlated to an endpoint titer. Cardiolipin Ab, IgM 01/13/2022 11.8 <12.5 MPL Final <12.5 MPL Negative 12.5-20 MPL Indeterminate >20 MPL Positive The following results were obtained with the [employer] Lite [place] IgM III [place]. Cardiolipin IgM values obtained with the different manufacturers' assay methods may not be used interchangeably. The magnitude of the reported IgM levels cannot be correlated to an endpoint titer. Beta 2 Glycoprotein, IgG 01/13/2022 <9 <20 SGU Final <20 SGU Negative 20-80 SGU Low Positive >80 SGU High Positive These results were obtained with the [employer] Lite B2 GPI IgG [place]. B2 GPI IgG values obtained with different manufacturers' assay methods may not be used interchangeably. The magnitude of the reported IgG levels cannot be correlated to an endpoint titer. Beta 2 Glycoprotein, IgM 01/13/2022 <9 <20 SMU Final <20 SMU Negative 20-80 SMU Low Positive >80 SMU High positive These results were obtained with the [employer] Lite B2 GPI IgM [place]. B2 GPI IgM values obtained with different manufacturers' assay methods may not be used interchangeably. The magnitude of the reported IgM levels cannot be correlated to an endpoint titer. IgG 01/13/2022 1,158 700-1,600 mg/dL Final IgA 01/13/2022 136 70 - 400 mg/dL Final IgM 01/13/2022 44 40 - 230 mg/dL Final MPA Result 01/13/2022 M protein is present. (A) No M protein is identified. Final Interpretation (MPA) 01/13/2022 Atypical restricted bands are present in the IgG and lambda regions. Consistent with IgG lambda monoclonal gammopathy. Final Staff Review ([facility]) 01/13/2022 Reviewed by Sonny Granados MD, Ph.D ([id number]) Final N[place]any Free, Serum 01/13/2022 16.0 3.3 - 19.4 mg/L Final Lambda Free, Serum 01/13/2022 28.7 (A) 5.7 - 26.3 mg/L Final K/L Ratio, Serum 01/13/2022 0.56 0.26 - 1.65 Final Protein, Total 01/13/2022 6.7 6.3 - 8.0 g/dL Final Albumin for SPE 01/13/2022 3.96 3.37 - 4.23 g/dL Final Alpha 1 Globulin 01/13/2022 0.18 0.18 - 0.31 g/dL Final Alpha 2 Globulin 01/13/2022 0.60 0.52 - 0.97 g/dL Final Beta Globulin 01/13/2022 0.89 0.84 - 1.36 g/dL Final Gamma Globulin 01/13/2022 1.08 0.70 - 1.44 g/dL Final Interpretation (Prot Electro) 01/13/2022 An M protein is identified on protein electrophoresis. (A) No definitive M protein is identified on protein electrophoresis. Final M-Protein Location 01/13/2022 Gamma Fraction 1 Final M-Protein Concentration 01/13/2022 0.10 (A) <=0.00 g/dL Final SPE Staff Review 01/13/2022 Reviewed by Sonny Granados MD, Ph.D ([id number]) Final Comment (Serum Prot Electro) 01/13/2022 A reflex test for Monoclonal Protein analysis (immunofixation) has been ordered. Final M-Protein Location 2 01/13/2022 Gamma Fraction 2 Final M-Protein Concentration 2 01/13/2022 0.51 (A) <=0.00 g/dL Final Interpretation Comment for Protein* 01/13/2022 See separate immunofixation report for characterization of monoclonal gammopathy. Final Interpretation (Lupus Anticoagulan* 01/13/2022 Final Value:Performing Pathologist: Shira Stevens Interpretation: Abnormal - see comment below. SIGNIFICANT FINDINGS: 1. Prolonged APTT with negative mixing studies 2. Lupus anticoagulant: Indeterminate Laboratory testing was performed to evaluate the presence of a lupus anticoagulant and antiphospholipid antibodies. Both the PT and APTT results are normal. However, the Lupus anticoagulant-sensitive APTT screen was abnormal. After a 1:1 mix of patient:normal plasma, the APTT corrects to within the reference range. An inhibitor of the intrinsic and/or common pathway is unlikely. This finding can be observed with a factor deficiency. The thrombin time and anti-Xa screen were normal. No heparin, anti-Xa or direct thrombin inhibitor drug effect is present. LUPUS ANTICOAGULANT STUDIES: Apart from screening tests, only the hexagonal phase phospholipid neutralization assay is positive. The dilute Bijan's Viper Venom Test (DRVVT) phospholipid confirm ratio and platelet neutralization (PNP) assays are negative, as are the mixing study tests. Suggest retesting in 12 weeks to confirm, as lupus anticoagulants may be transient. If positive testing is observed on two or more occasions at least 12 weeks apart, this may be indicative of the antiphospholipid syndrome, if observed in the correct clinical setting. The criteria for the diagnosis of a Lupus Anticoagulant, as detailed by the Subcommittee on Lupus Anticoagulants and Anti-Phospholipid Antibodies of the Scientific and Standardization Committee of the International Society on Thrombosis and Haemostasis (ISTH), are the following: (1) A prolonged phospholipid-dependent clotting test (screening test); (2) Evidence for an inhibitor (1:1 mix of patient:normal plasma); (3) Evidence that the inhibitor is phospholipid dependent and (4) Exclusion of specific inhibitors (ie, fVIII inhibitors, direct thrombin inhibitors, or heparin). Thromb. Haemost. 74:1185 (1995). ANTIPHOSPHOLIPID ANTIBODY STUDIES: The IgG, IgM and IgA anticardiolipin antibody titers were all negative. Both the IgG and IgM Beta-2 Glycoprotein I antibody titers were negative. PROTEIN STUDIES: To further evaluate the cause of the prolonged APTT with negative mixing studies and indeterminate lupus anticoagulant testing, the intrinsic factors were added. Factors VIII, IX, XI, XII were all normal. THE FOLLOWING TESTS WERE ADDED AND ARE REPORTED SEPARATELY: APTT mixing study, Factors VIII, IX, XI, XII, Hexagonal phase phospholipid neutralization, DRVVT and PNP. MPA Result 01/13/2022 M protein is present. (A) No M protein is identified. Final Interpretation ([facility]) 01/13/2022 Atypical restricted bands are present in the IgG and lambda regions. Consistent with IgG lambda monoclonal gammopathy. Final Staff Review ([facility]) 01/13/2022 Reviewed by Sonny Granados MD, Ph.D ([id number]) Final Factor VIII:C Assay 01/13/2022 152 50 - 173 % Final Factor IX:C Assay 01/13/2022 141 77 - 173 % Final Factor XI:C Assay 01/13/2022 79 68 - 175 % Final Factor XII C Assay 01/13/2022 148 58 - 218 % Final Outside Data/Labs: Subjective Patient-Entered Data: @INCAT@ INCAT - Previous Scores No flowsheet data found. CAPPRI 02/22/2022 I am frustrated by my neuropathy. A lot I am bothered by pain from neuropathy. A little bit I am off balance when walking because of my neuropathy. Not at all I have trouble getting dressed because of my neuropathy. A little bit I have trouble sleeping because of my neuropathy. A lot I am bothered by limitations in performing my work (including work at home) because of my neuropathy. A lot I have trouble driving because of my neuropathy. A little bit I am dependent on others because of my neuropathy. A little bit I am depressed about my neuropathy. A little bit I am falling because of my neuropathy. Not at all I am preoccupied with my neuropathy. A little bit I am unable to do all the leisure activities that l want to do because of my neuropathy. A lot I am worn out because of my neuropathy. A lot I have trouble eating because of my neuropathy. A little bit I have trouble doing activities around the house. A little bit Score: 18 Neuropathy Pain 02/22/2022 Is your neuropathy painful? Yes What has your neuropathy pain severity been, on the average, over the past two weeks? 4 Are you being treated for your neuropathy pain? Yes Are any of the following medications currently used or have been used in the past for your neuropathy pain? Lyrica (pregabalin), Cymbalta (duloxetine), Narcotic medications (e.g. Oxycontin, Percocet, etc.) NM Treatment and Fall Risk 02/22/2022 When you leave your home, do you usually Walk independently How many times have you fallen in the past month? 0 How many times have you fallen in the past year? 0 In the past year have you received any of the following treatments to reduce fall risk? Physical therapy program PROMIS-10 PROMIS 10 02/22/2022 11/17/2021 In general, would you say your health is: Fair Fair In general, would you say your quality of life is: Good Good In general, how would you rate your physical health? Fair Fair In general, how would you rate your mental health, including your mood and your ability to think? Good Good In general, how would you rate your satisfaction with your social activities and relationships? Fair Very good To what extent are you able to carry out your everyday physical activities such as walking, climbing stairs, carrying groceries, or moving a chair? Moderately Moderately In general, please rate how well you carry out your usual social activities and roles. (This includes activities at home, at work and in your community, and responsibilities as a parent, child, spouse, employee, friend, etc.) Fair Very good How would you rate your pain on average? 4 5 How would you rate your fatigue on average? Severe Severe How often have you been bothered by emotional problems such as feeling anxious, depressed or irritable? Often Sometimes PROMIS Adult Short Form-Global Health Score (Physical) 34.9 (Poor) 34.9 (Poor) PROMIS Adult Short Form-Global Health Score (Mental) 38.8 (Fair) 45.8 (Good) PHQ-9 PHQ-9 All Questions 02/22/2022 05/25/2021 Little interest or pleasure in doing things 1 1 Feeling down, depressed, or hopeless 2 1 Trouble falling or staying asleep, or sleeping too much 2 1 Feeling tired or having little energy 2 2 Poor appetite or overeating 1 0 Feeling bad about yourself - or that you are a failure or have let yourself or your family down 1 0 Trouble concentrating on things, such as reading the newspaper or watching television 0 0 Moving or speaking so slowly that other people could have noticed. Or the opposite - being so fidgety or restless that you have been moving around a lot more than usual 0 0 Thoughts that you would be better off , or of hurting yourself in some way 0 0 PHQ-9 Score 9 5 (0-4) minimal depression (5-9) mild depression (10-14) moderate depression (15-19) moderately severe depression (20-27) severe depression Sleep 02/22/2022 What is your average total sleep time per night over the past 4 weeks? 5 hours What is your average total sleep time during the day over the past 4 weeks? 2 hours Have you been diagnosed with sleep apnea? Yes Are you currently using positive airway pressure (PAP) therapy? Yes How many hours per night on average do you use PAP therapy? I use this always when asleep; it is essential. Insomnia Severity Index 02/22/2022 Difficulty falling asleep 2 Difficulty staying asleep 2 Problem waking up too early 1 Satisfied/dissatisfied with current sleep pattern 2 Sleep interferes with daily functions 2 Sleep problems noticeable to others 3 Worried/distressed about current sleep problems 2 Score 14 I spent a total of 60 minutes on the date of the service which included preparing to see the patient, [id number] patient care, completing clinical documentation, obtaining and/or reviewing separately obtained history, performing a medically appropriate examination, counseling and educating the patient/family/caregiver and ordering medications, tests, or procedures. Omid Roca MD documented in this encounter [facility] 02-25-2022 History of Present illness Narrative Radiology Service Progress Note PATIENT NAME: Zayda De La Vega DATE OF SERVICE: February 25, 2022 TIME: 12:38 PM PATIENT IDENTITY VERIFICATION COMPLETED USING TWO (2) IDENTIFIERS: Name and Date of confirmed by patient verbally. FALL SCREENING: Has the patient had 2 falls in the last year or 1 fall with injury or currently using an Ambulatory Assistive Device (Walker, Cane, Wheelchair, Crutches, etc.)? No PATIENT GENDER DATA: Male PATIENT RELEVANT IMPLANT DATA REVIEWED: Not Applicable RADIOLOGY DEPARTMENT: General X-ray: Exam(s) Completed: Bone Survey PERIPHERAL IV DATA: Not applicable SIGNED BY: RT Issa(R) February 25, 2022 12:38 PM documented in this encounter [facility] 02-25-2022 Nurse Note Additional intake questions: Has the patient had fever, nausea, vomiting, diarrhea, constipation, fatigue for > 1 week? Yes, fatigue Does the patient have a decreased appetite? No Does patient want to see a Slackline Operator? No (yes to any of above refer patient to schedulers for dietitian appointment) ) Does patient have any new or increased numbness or tingling of extremities? Yes, hands and feet Is patient interested in fertility information? No Does patient need any prescription refills? No Does patient have an advanced directive in place? Yes, copies are in Epic Electronically Signed By: Nusrat Gonzalez LPN documented in this encounter [facility] 02-25-2022 History of Present illness Narrative Images from the original note were not included. [facility] Zayda De La Vega is a 71 year old male patient. Reason for visit: Consult, referred by Dr. Pat Seo for MGUS. My recommendations to the consult requesting physician are communicated via the shared electronic medical record or US mail. Baseline assessment on initial diagnosis date January Cancer Staging No matching staging information was found for the patient. 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 Myeloma FISH panel: Cytogenetics: LDH: 127 U/L (100 - 220) ISS stage: [place] Stage: Monoclonal proteins at diagnosis: Serum M-spike: 0.54 and M-Protein Concentration 2 0.51 gm/dL, Involved serum free light chains: 27.2 mg/L, Uninvolved serum free light chains: 15.6 mg/L, Urinary m-protein: g/24hrs, Urinary protein excretion: g/24hrs, Urinary albumin: % and Urinary m-protein Total immunoglobulins at diagnosis: IgG 1215 mg/dL, IgA 135 mg/dL, IgM 43 mg/dL Bone marrow plasma cell infiltration: Systemic treatment and disease course Local treatments (radiation, surgery, kyphoplasty) History of present illness Mr. De La Vega is a very pleasant 71 yr old male with PMHx significant for MGUS, peripheral neuropathy, osteoarthritis, essential hypertension, hyperlipidemia, who presents rheumatologic evaluation in the setting of positive PRANAY and recent diagnosis of SLE in [place] seen today for evaluation of MGUS. He is accompanied by his . Mr De La Vega confirmed description of his symptoms below as unchanged. Per Dr Seo's progress note 01/12/2022: Patient describes various symptoms that have been episodic over the past 15 years. He mainly characterizes it as fires in his ears, eyelids, shoulders, hands, legs/under the skin. Patient believes he has been recently more tired, would collapse into bed. He has been suffering from the brain fogginess and occasional muscle cramps at night. He also endorses mouth dryness. Patient has bilateral hands numbness, most notably at the fingertips for the past 10 months. He also reports stiffness in his fingers every morning, which eases up as the day goes by. In October 2021, patient's PCP had obtained an PRANAY which returned positive, and subsequently advised patient to follow with a television installer helper. In the interim, patient was visiting [place], where he met with a television installer helper, who diagnosed him with SLE based on additional lab tests including strong positive PRANAY IgG, positive antidouble-stranded DNA confirmed by crithidia, weak positive anticardiolipin IgM (per paper lab reports brought by patient). Subsequently, patient was started on: Hydroxychloroquine 200 mg twice daily --Pregabalin 225 mg twice daily --Short course of hydrocodone acetaminophen 3 325 as needed Patient reports feeling better overall. He would quantify it as a 35% improvement, compared to great distress in October, almost bedridden for 2 weeks. Patient denies ulcers in mouth/nose, photosensitivity, red or painful eyes, small joint pains, history of blood clots, shortness of breath, fever, weight loss, or history of any other known autoimmune disease. Of note patient has had multiple MSK surgeries including 2 shoulder repairs, 2 hip repairs, 2 back surgeries, carpal tunnel release. He considers joint pains as part of his normal life due to that Review of systems General: No fever or recent weight loss HEENT: Dry eyes, visual changes: yes, No lumps, Difficulty swallowing: yes, no enlarging tongue, no tooth aches, Dry mouth: yes Musculoskeletal: Arthralgias: yes, Myalgias: yes, Muscle weakness: yes , Joint swelling: yes, Morning Joint Stiffness: yes and Functionally limited due to pain Hematological: easy bruising Lymphatic / Immune system: Swollen glands: no Cardiovascular: Chest pain: no, Leg swelling: yes Pulmonary: Shortness of breath: yes, cough: no Gastrointestinal: Abdominal pain: no, Diarrhea: no, Blood in stool: no, GERD symptoms: no Genitourinary: Urine output: Good Neurological: burning skin, Headaches: yes, Numbness: yes, Skin: Skin changes: yes, Hair loss: yes, flares burning pain intermittent PAST MEDICAL HISTORY Diagnosis Date Anxiety Dr. Belle Arthritis of both hips Benign neoplasm of colon Bipolar disorder (HCC) Dr. Belle DDD (degenerative disc disease), lumbar Depressive disorder, not elsewhere classified Diverticulosis of colon (without mention of hemorrhage) HLD (hyperlipidemia) 06/13/2017 Hypertension Internal hemorrhoids without mention of complication Monoclonal paraproteinemia Morbid obesity (HCC) MARCELINA (obstructive sleep apnea) 1997 Peripheral neuropathy Prediabetes 09/11/2019 Shoulder arthritis Sleep apnea Snoring PAST SURGICAL HISTORY Procedure Laterality Date ARTHROPLASTY TOTAL SHOULDER 04/03/2013 Right shoulder replacement ARTHRP ACETBLR/PROX FEM PROSTC AGRFT/ALGRFT 1992 Hip replacement, total RIGHT BACK SURGERY HX COLONOSCOPY FLX DX W/COLLJ SPEC WHEN PFRMD 08/11/1992 Colonoscopy COLONOSCOPY FLX DX W/COLLJ SPEC WHEN PFRMD 09/01/2018 Colonoscopy COLSC FLX W/RMVL OF TUMOR POLYP LESION SNARE TQ 06/26/08 ESOPHAGOGASTRODUODENOSCOPY TRANSORAL DIAGNOSTIC 05/08/2020 EGD JOINT REPLACEMENT HX PAST SURGICAL HISTORY OF 1995 L5-S1 spinal fusion with pins, rods, and bolts PAST SURGICAL HISTORY OF 03/2011 Right hip revision PAST SURGICAL HISTORY OF 1970 right shoulder surgery PAST SURGICAL HISTORY OF Left 2018 shoulder replacement Allergies / intolerances ALLERGIES Allergen Reactions Aspartame Swelling Pt gets burning sensation under skin Betadine [Povidone-* Rash Blister Lisinopril Cough Cough Losartan Cough Niacin Other: See Comments Niacin-Dermid Burning pain all over Penicillins Rash Seasonal Allergies Other: See Comments GRASS POLLEN-positive skin test 09-05-13 Sudafed [Pseudoephe* Other: See Comments Difficulty swallowing, swelling of tongue & lips Tamiflu [Oseltamivi* Shortness of Breath SOB, arm pain Trazodone Shortness of Breath Ultram [Tramadol] Per patient contraindication due to wellbutrin Medications HYDROcodone-acetaminophen (NORCO) 5-325 mg per tablet Take 1 tablet by mouth every 8 hours as needed for pain. diclofenac, EC, (VOLTAREN) 50 mg EC tablet Take 1 tablet by mouth twice daily with meals. As needed for arthritis pain hydrOXYchloroQUINE (PLAQUENIL) 200 mg tablet Take 1 tablet by mouth twice daily. pregabalin (LYRICA) 225 mg capsule Take 1 capsule by mouth twice daily for 90 days. fexofenadine (ANÍBAL ALLERGY) 180 mg tablet Take 1 tablet by mouth once daily. amLODIPine (NORVASC) 5 mg tablet Take 1 tablet by mouth once daily. metoprolol succinate ER (TOPROL XL) 25 mg 24 hr tablet Take 2 tablets by mouth once daily. tamsulosin (FLOMAX) 0.4 mg Take 1 capsule by mouth daily at bedtime. azelastine (ASTELIN) 0.1% nasal spray Use 1 [place] in each nostril twice daily. fluticasone (FLONASE) 50 mcg/actuation nasal spray Use 2 Sprays in each nostril once daily. CPAP Continue BiPAP with new settings: @ 14/8 cm of water with humidification. No new equipment is needed. aspirin, enteric coated (ASPIRIN, ENTERIC COATED) 81 mg EC tablet Take 81 mg by mouth once daily. IRON, FERROUS SULFATE, ORAL Take by mouth once daily. ASCORBIC ACID (VITAMIN C ORAL) Take by mouth once daily. buPROPion (WELLBUTRIN) 75 mg tablet Take 150 mg by mouth three times daily. LORazepam 1 mg ORAL tablet Take 1 mg by mouth every 6 hours as needed. Social History Tobacco Use Smoking status: Former Smoker Packs/day: 1.00 Years: 10.00 Pack years: 10.00 Types: Cigarettes Quit date: 10/27/1983 Years since quittin.3 Smokeless tobacco: Never Used Substance Use Topics Alcohol use: Yes Comment: very rarely Drug use: No FAMILY HISTORY Problem Relation Age of Onset Cancer Mother skin Cancer Father KIDNEY other (Brain Tumor) Father Cancer Sister thyroid No Known Problems Brother Physical examination BP 139/75 Pulse 61 Temp 37 C (98.6 F) (Oral) Resp 18 Wt 132 kg (291 lb 0.1 oz) BMI 43.60 kg/m ECOG PS: 1- Restricted in physically strenuous activity. Carries out light duty. General appearance: Well appearing, alert, in no acute distress, well-hydrated, well nourished. and Overweight HEENT: No lumps, no macroglossia, no icterus. Mucous membranes pink. Neck: Supple, no adenopathy; thyroid symmetric, normal size, no bruits Back: no pain to palpation Lungs: Lungs clear to auscultation. No wheezing, rhonchi, rales. Heart: RRR without murmur, gallop, or rubs. No ectopy Abdomen: Abdomen soft, non-tender. Bowel sounds normal. No masses, organomegaly Extremities: No deformities, edema, skin discoloration, clubbing or cyanosis. Good capillary refill. Musculoskeletal: (+) joint swelling of fingers, No deformity, or tenderness Neuro: Alert and oriented x 3. Cranial nerves 2-12 grossly intact. Motor and sensation grossly intact. Gait stable. Skin: no rashes, lesions, or jaundice Plasmacytomas: No Laboratory tests WBC (k/uL) Date Value 01/13/2022 5.39 07/15/2021 6.43 02/07/2021 7.60 09/08/2019 5.52 06/07/2018 5.30 06/22/2017 9.72 06/13/2017 6.44 06/30/2016 7.07 04/04/2013 9.07 03/21/2013 5.44 07/01/2011 5.13 Abs Neut (ANC) (k/uL) Date Value 07/15/2021 3.67 02/07/2021 4.50 06/07/2018 3.11 06/13/2017 3.78 06/30/2016 4.07 07/01/2011 3.08 03/11/2011 2.41 02/23/2011 3.87 Hemoglobin (g/dL) Date Value 01/13/2022 12.8 07/15/2021 13.3 02/07/2021 13.2 09/08/2019 13.6 06/07/2018 12.6 06/22/2017 11.6 06/13/2017 13.6 06/30/2016 13.5 04/04/2013 11.1 03/21/2013 13.0 07/01/2011 13.7 Platelet Count (k/uL) Date Value 01/13/2022 237 07/15/2021 259 02/07/2021 279 09/08/2019 267 06/07/2018 265 06/22/2017 232 06/13/2017 258 06/30/2016 272 04/04/2013 232 03/21/2013 257 07/01/2011 265 Glucose (mg/dL) Date Value 01/13/2022 108 07/15/2021 106 02/07/2021 118 03/25/2020 83 09/08/2019 121 12/08/2018 103 06/07/2018 80 07/07/2017 88 06/13/2017 87 11/02/2016 108 06/30/2016 80 Creatinine (mg/dL) Date Value 01/13/2022 0.76 07/15/2021 0.80 02/07/2021 0.92 03/25/2020 0.89 09/08/2019 0.82 12/08/2018 0.73 06/07/2018 0.72 07/07/2017 0.75 06/13/2017 0.64 11/02/2016 0.81 06/30/2016 0.88 Calcium (mg/dL) Date Value 07/15/2021 9.6 02/07/2021 9.6 03/25/2020 9.1 09/08/2019 9.3 12/08/2018 9.3 06/07/2018 8.7 07/07/2017 9.2 06/13/2017 9.3 11/02/2016 9.5 06/30/2016 9.2 Calcium, Total (mg/dL) Date Value 01/13/2022 9.2 M-Protein Concentration Date Value 01/13/2022 0.10 g/dL 07/15/2021 0.60 gm/dL 12/08/2018 0.63 gm/dL 03/28/2018 0.64 gm/dL 06/14/2014 0.56 gm/dL 08/13/2013 0.58 gm/dL 08/07/2012 0.65 gm/dL 08/10/2011 0.66 gm/dL 01/18/2011 0.60 gm/dL 08/23/2008 0.50 gm/dL M Azeem Quant, 24 Hr Urine (gm/24 Hr) Date Value 12/10/2018 0.00 Nittany Free, Serum (mg/L) Date Value 01/13/2022 16.0 12/08/2018 11.8 Lambda Free, Serum (mg/L) Date Value 01/13/2022 28.7 12/08/2018 32.7 MPA IgG, Serum (mg/dL) Date Value 03/28/2018 1,290 06/14/2014 1,230 08/13/2013 1,360 08/07/2012 1200 08/10/2011 1400 01/18/2011 1230 08/23/2008 1310 MPA IgA, Serum (mg/dL) Date Value 03/28/2018 114 06/14/2014 120 08/13/2013 139 08/07/2012 127 08/10/2011 151 01/18/2011 161 08/23/2008 184 MPA IgM, Serum (mg/dL) Date Value 03/28/2018 51 06/14/2014 47 08/13/2013 51 08/07/2012 47 08/10/2011 69 01/18/2011 48 08/23/2008 71 Interpretation (MPA) (no units) Date Value 01/13/2022 Atypical restricted bands are present in the IgG and lambda regions. Consistent with IgG lambda monoclonal gammopathy. 01/13/2022 Atypical restricted bands are present in the IgG and lambda regions. Consistent with IgG lambda monoclonal gammopathy. 03/28/2018 SEE COMMENT 06/14/2014 Atypical restricted bands are present in the IgG and lambda regions. Consistent with IgG lambda monoclonal gammopathy. 08/13/2013 Atypical restricted bands are present in the IgG and lambda regions. Consistent with IgG lambda monoclonal gammopathy. 08/07/2012 Atypical restricted bands are present in the IgG and lambda regions. Consistent with IgG lambda monoclonal gammopathy. 08/10/2011 PROTEIN ELECTROPHORESIS: An M-protein band is identified. IMMUNOFIXATION ELECTROPHORESIS: Immunofixation demonstrates abnormal homogeneous bands in the IgG and Lambda regions. INTERPRETATION: Consistent with monoclonal gammopathy, IgG Lambda type. Last skeletal imaging / date 02/25/2022 Result: IMPRESSION: NO LYTIC LESIONS IN THE VISUALIZED AXIAL AND APPENDICULAR SKELETON. Impression and Plan Cancer Staging No matching staging information was found for the patient. I discussed with the patient and his the presentation is of a Monoclonal Gammopathy of Undetermined Significance (MGUS) is an asymptomatic condition that is included in a spectrum of monoclonal plasma cell disorders. MGUS is characterized by a monoclonal protein < 3 g/dL (30 g/L) in the serum and < 10% monoclonal plasma cells in the bone marrow and no evidence of end-organ damage ( CRAB ), lymphoma, Waldenstr m macroglobulinemia, or light chain amyloidosis (AL). I discussed that a diagnosis of MGUS is relatively common, affecting 3.2% of the population over the age of 50 years, and approximately 6% of the population. The natural history and pathophysiology of multiple myeloma, amyloidosis and plasma cell dyscrasias were explained. Three levels were discussed primarily as relates to IgG [place] monoclonal gammopathy which includes, but is not limited to, MGUS (low level m protein without evidence of organ damage) smoldering MM (higher m component without organ damage, or multiple myeloma. The current criteria for active MM requiring treatment can be remembered by the mnemonic SLiM CRAB (Adalberto SV, et al., The Lancet. Oncol. Aug 2014;15(12):z664-p180.) S-Sixty percent or greater clonal plasma cells, Li- An elevated serum free light chains (kappa/lambda ratio >100, M- Magnetic Resonance Imaging (MRI) with greater than 1 focal lesion >5mm, C- Calcium elevation (>11.0g/dL) R- Renal insufficiency or failure (creat >2.0g/dL and related to the paraprotein) A- Anemia (hemoglobin less than 10 or a 2 gram drop from baseline), B- bone disease (osteoporosis or lytic lesions). We reviewed symptoms such as fatigue, easy bruising, or abnormal bleeding that may indicate active multiple myeloma with cytopenias. Also bone pain or fractures may indicate active multiple myeloma. Other conditions such as weight loss, nephrotic syndrome with edema, or unexplained dyspnea , neuropathy or symptoms of hyperviscosity may lead to think about an additional diagnoses. We also discussed about how to monitor this patient's using some predictors of risk of progression including the amount of M protein (more than 1.5 g/dL), non-IgG isotype or free light chain ratio less than 0.26 or more than 1.65. We will get repeat immunoglobulin levels and serum free light chains (kappa and lambda) to further investigate his paraproteinemia. The evaluation will also include B2M, CBC with differential, Complete chemistry panel, 24hr urine studies. Will plan to present patient at the next [place] Review Board and then most likely ask him to undergo a bone marrow biopsy and aspirate. Today he is agreeable to having a Skeletal survey to rule out lytic lesions. Upon review of the available data, is likely that Mr De La Vega will fall into the category of Monoclonal Gammopathy of Undetermined Significance (MGUS). If so, we would plan to monitor Myeloma labs every 3 months initially, then every 6 months. These would include SPEP and UPEP with immunefixation, CBC with Differential, Beta-2 Microglobulin, 24 hr Urine for Total protein, Complete chemistry Panel, and [place]/Lambda, free serum and urine evaluation. He was asked to call with worsening symptoms of fatigue, back or bony pain, activity intolerance. Next follow-up in 3 months. ASSESSMENT/PLAN: 1. Monoclonal paraproteinemia - ICD9: 273.1, ICD10: D47.2 (primary diagnosis) - XR BONE SURVEY ROUTINE - B2 MICROGLOBULIN B - CBC + DIFF - COMP METABOLIC PANEL - LD LACTATE DEHYDRO - PHOSPHORUS INORGANIC - PROTEIN ELECTROPHORESIS SERUM W/INTERP - PROT ELEC UR 24HR W/M SPIKE AND INTERP - MONOCLONAL PROTEIN, SERUM (BLOOD) - URIC ACID BLOOD - MONOCLONAL PROT 24 UR W/INTERP - CALCIUM IONIZED B - VASC ENDO GROWTH FACTOR - MGUS TUMOR [facility]ARD[facility] 2. Gammopathy - ICD9: 273.9, ICD10: D47.2 - COPPER BLOOD - MAG ANTIBODY,IGM LUKE 3. Small fiber neuropathy - ICD9: 356.9, ICD10: G62.9 Philippe Dawson APRN.[facility] [place] [address] Email: [email or web address] CC: Dr. Pat Seo documented in this encounter [facility] 02-23-2022 Miscellaneous Notes Received summary of exam findings from [facility]. Placed in provider's inbox for review. Route to AR delgado. documented in this encounter [facility] 02-17-2022 History of Present illness Narrative POPULATION HEALTH NAVIGATION OUTREACH Action/FYI Patient returned my [place] message I called him back and scheduled appointment w/PCP on 04/19/22. Patient does have Advanced Directives he may bring to appointment foe scanning Pt identified by name and : YES, via phone Outreach Outcome/Action Spoke to patient or caregiver: Patient scheduled Navigation Signature: Irina Mohr MA February 17, 2022 1:42 PM POPULATION HEALTH NAVIGATION OUTREACH Action/FYI Left a message asking patient to call back to review Care Gaps Mychart message sent to patient. Care Gap Reviewed:: Follow-up appointment - due 04/15/22 Controlling Blood Pressure Pt identified by name and : NO Outreach Outcome/Action Unable to reach patient: Left message MyChart message sent Reason for Outreach Care Gap or Scheduling/Wellness visits Payer: Payor: [employer] MEDICARE / Plan: [employer] MEDICARE PPO / Product Type: PPO / Care Gap Reviewed:: Follow-up appointment Controlling Blood Pressure Reminder: Reminder note to check Health Maintenance for items below Health Maintenance items due: BP CONTROLLED (<130/80) Never done SHINGRIX VACCINE(2 of 3) due on 09/28/2009 ADVANCE DIRECTIVE DISCUSSION Never done COVID-19 VACCINE(4 - Booster for Moderna series) due on 11/05/2021 Message Sent to Practice: No Navigation Signature: Irina Mohr MA February 17, 2022 7:42 AM documented in this encounter [facility] 02-15-2022 Miscellaneous Notes Called to give pharmacist ok per Dr. Zarate, to fill the Alexander. Dr. Zarate gives the ok to dispense, can you call the pharmacy to relay the messaage? Layo Cuellar APRN.EDOUARD Elkin Kenney calls and wanted to make provider aware that patient is being prescribed Lorazepam 1 mg TID and Ambien [address] Alan Belle in [place]. Pharmacist wanted provider aware since provider sent in script for Alexander. Please give pharmacy a call if ok to dispense. Please review and advise, Katelyn Morse RN documented in this encounter [facility] 01-17-2022 Miscellaneous Notes Labs OK except: --Gammopathy in serum PND: LAC UPEP Rec: Hematology consult Consider FU Neurology Pat Seo MD documented in this encounter [facility] 01-14-2022 History of Present illness Narrative This Team Access Model visit is a virtual encounter. It required patient-provider interaction for the medical decision making as documented below. The patient consented to proceed by video encounter before initiating the encounter. DISTANCE HEALTH VISIT Zayda De La Vega is a 71 year old male seen for follow up management of multiple medical issues. Hypertension Patient is managed on metoprolol 25 mg He has been checking his BP at home Yesterday at the doctor it was 160/80 He says that his heart rate is always in the 60's Patient previously took lisinopril but he developed a dry cough Gout Patient has not had a recent gout attack. Lupus Patient has seen 3 rheumatologists He is managed on multiple medications including Lyrica 225 mg, diclofenac and hydroxychloroquine Patient is having numbness in his hands. Patient is currently getting his prescriptions from television installer helper but may need medications filled by me. HISTORY REVIEWED (electronic chart updated): - medical history - medications - allergies REVIEW OF SYSTEMS: General: Feels well, no weight changes, fever, chills. HEENT: No sinus congestion, earache, sore throat. Cardiac: No chest pain, palpitations Resp: No cough, wheeze, shortness of breath GI: No reflux symptoms, food intolerance, bowel changes. : No urinary frequency, dysuria. MS: +gout Endo: +lupus PHYSICAL EXAMINATION: VIDEO EXAM: performed via video enabled technology GENERAL: alert and appropriate, in no distress and well-hydrated, well nourished Data Reviewed: 01/13/22 Protein- within normal limits CK- within normal limits CBC- hemoglobin (12.8 low) Lipid- Cholesterol, Total <200 mg/dL 171 Comment: <200 mg/dL, Desirable 200-239 mg/dL, Borderline high >239 mg/dL, High Triglyceride <150 mg/dL 259 High Comment: <150 mg/dL, Normal 150-199 mg/dL, Borderline high 200-499 mg/dL, High >499 mg/dL, Very high HDL Cholesterol >39 mg/dL 30 Low Comment: 40-59 mg/dL, Acceptable >59 mg/dL, High: Negative risk factor for coronary heart disease <40 mg/dL, Low: Positive risk factor for coronary heart disease Non HDL Cholesterol <130 mg/dL 141 High Comment: <130 mg/dL, Optimal 130-159 mg/dL, Near optimal/above optimal 160-189 mg/dL, Borderline high 190-219 mg/dL, High >219 mg/dL, Very high Secondary prevention optimal non HDL Cholesterol levels are recommended to be <100 mg/dL Fasting Time hrs 12 VLDL Cholesterol <30 mg/dL 52 High TC:HDL Ratio <5.10 5.70 High LDL Cholesterol <100 mg/dL 89 Comment: <100 mg/dL, Optimal 100-129 mg/dL, Near optimal/above optimal 130-159 mg/dL, Borderline high 160-189 mg/dL, High >189 mg/dL, Very high Secondary prevention optimal LDL Cholesterol levels are recommended to be < 70 mg/dL LDL:HDL Ratio <2.54 2.97 High CMP- glucose (108 high) CO2 (20 low) Nittany- lambda (28.7 high) APTT- within normal limits Prothrombin- within normal limits Urinalysis- within normal limits ASSESSMENT/PLAN: This encounter occurred by video encounter over the course of 20 minutes. 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 amLODIPine (NORVASC) 5 mg tablet 30 tablet 2 Sig: Take 1 tablet by mouth once daily. RTO: 3 months Scribe Attestation: By signing my name below, I, Rosi Martínez, attest that this documentation has been prepared under the direction and in the presence of Alex Zarate M.D.. Electronically Signed: Celsa Tavera. January 14, 2022 12:53 PM. This telehealth encounter is provided under a state of emergency due to COVID19 and is for care for condition where providing the care is supportive of minimizing potential exposure and/or transmission of COVID19. Provider Attestation: I, Edinson Zarate MD, personally performed the services described in this documentation. All medical record entries made by the scribe were at my direction and in my presence. I have reviewed the chart and discharge instructions (if applicable) and agree that the record reflects my personal performance and is accurate and complete. Electronically Signed: Edinson Zarate MD. January 15, 2022 10:33 AM documented in this encounter [facility] 01-12-2022 History of Present illness Narrative Rheumatology Office Visit Note Date of Service: January 12, 2022 Reason for Consultation: Recent SLE diagnosis Consult Requested By: SELF Chief Complaint: Fires under skin HPI: Zayda De La Vega is a 71 year old male with PMH significant for MGUS, peripheral neuropathy, osteoarthritis, essential hypertension, hyperlipidemia, who presents rheumatologic evaluation in the setting of positive PRANAY and recent diagnosis of SLE in [place]. Patient describes various symptoms that have been episodic over the past 15 years. He mainly characterizes it as fires in his ears, eyelids, shoulders, hands, legs/under the skin. Patient believes he has been recently more tired, would collapse into bed. He has been suffering from the brain fogginess and occasional muscle cramps at night. He also endorses mouth dryness. Patient has bilateral hands numbness, most notably at the fingertips for the past 10 months. He also reports stiffness in his fingers every morning, which eases up as the day goes by. In October 2021, patient's PCP had obtained an PRANAY which returned positive, and subsequently advised patient to follow with a television installer helper. In the interim, patient was visiting [place], where he met with a television installer helper, who diagnosed him with SLE based on additional lab tests including strong positive PRANAY IgG, positive antidouble-stranded DNA confirmed by crithidia, weak positive anticardiolipin IgM (per paper lab reports brought by patient). Subsequently, patient was started on: Hydroxychloroquine 200 mg twice daily --Pregabalin 225 mg twice daily --Short course of hydrocodone acetaminophen 3 325 as needed Patient reports feeling better overall. He would quantify it as a 35% improvement, compared to great distress in October, almost bedridden for 2 weeks. Patient denies ulcers in mouth/nose, photosensitivity, red or painful eyes, small joint pains, history of blood clots, shortness of breath, fever, weight loss, or history of any other known autoimmune disease. Of note patient has had multiple MSK surgeries including 2 shoulder repairs, 2 hip repairs, 2 back surgeries, carpal tunnel release. He considers joint pains as part of his normal life due to that. PAST MEDICAL HISTORY Diagnosis Date Anxiety Dr. Belle Arthritis of both hips Benign neoplasm of colon Bipolar disorder (HCC) Dr. Belle DDD (degenerative disc disease), lumbar Depressive disorder, not elsewhere classified Diverticulosis of colon (without mention of hemorrhage) HLD (hyperlipidemia) 06/13/2017 Hypertension Internal hemorrhoids without mention of complication Monoclonal paraproteinemia Morbid obesity (HCC) MARCELINA (obstructive sleep apnea) 1997 Peripheral neuropathy Prediabetes 09/11/2019 Shoulder arthritis Sleep apnea Snoring PAST SURGICAL HISTORY Procedure Laterality Date ARTHROPLASTY TOTAL SHOULDER 04/03/2013 Right shoulder replacement ARTHRP ACETBLR/PROX FEM PROSTC AGRFT/ALGRFT 1992 Hip replacement, total RIGHT BACK SURGERY HX COLONOSCOPY FLX DX W/COLLJ SPEC WHEN PFRMD 08/11/1992 Colonoscopy COLONOSCOPY FLX DX W/COLLJ SPEC WHEN PFRMD 09/01/2018 Colonoscopy COLSC FLX W/RMVL OF TUMOR POLYP LESION SNARE TQ 06/26/08 ESOPHAGOGASTRODUODENOSCOPY TRANSORAL DIAGNOSTIC 05/08/2020 EGD JOINT REPLACEMENT HX PAST SURGICAL HISTORY OF 1995 L5-S1 spinal fusion with pins, rods, and bolts PAST SURGICAL HISTORY OF 03/2011 Right hip revision PAST SURGICAL HISTORY OF 1970 right shoulder surgery PAST SURGICAL HISTORY OF Left 2018 shoulder replacement FAMILY HISTORY Problem Relation Age of Onset Cancer Mother skin Cancer Father KIDNEY other (Brain Tumor) Father Cancer Sister thyroid No Known Problems Brother Social History Tobacco Use Smoking status: Former Smoker Packs/day: 1.00 Years: 10.00 Pack years: 10.00 Types: Cigarettes Quit date: 10/27/1983 Years since quittin.2 Smokeless tobacco: Never Used Substance Use Topics Alcohol use: Yes Comment: very rarely Drug use: No Current Outpatient Medications Medication Sig diclofenac, EC, (VOLTAREN) 50 mg EC tablet Take 50 mg by mouth twice daily with meals. hydrOXYchloroQUINE (PLAQUENIL) 200 mg tablet Take 1 tablet by mouth twice daily. pregabalin (LYRICA) 225 mg capsule Take 1 capsule by mouth twice daily for 90 days. HYDROcodone-acetaminophen (NORCO) 5-325 mg per tablet Take 1 tablet by mouth every 8 hours as needed for pain. metoprolol succinate ER (TOPROL XL) 25 mg 24 hr tablet Take 2 tablets by mouth once daily. tamsulosin (FLOMAX) 0.4 mg Take 1 capsule by mouth daily at bedtime. azelastine (ASTELIN) 0.1% nasal spray Use 1 [place] in each nostril twice daily. fluticasone (FLONASE) 50 mcg/actuation nasal spray Use 2 Sprays in each nostril once daily. fexofenadine HCl (ANÍBAL ORAL) Take by mouth. CPAP Continue BiPAP with new settings: @ 14/8 cm of water with humidification. No new equipment is needed. aspirin, enteric coated (ASPIRIN, ENTERIC COATED) 81 mg EC tablet Take 81 mg by mouth once daily. IRON, FERROUS SULFATE, ORAL Take by mouth once daily. ASCORBIC ACID (VITAMIN C ORAL) Take by mouth once daily. buPROPion (WELLBUTRIN) 75 mg tablet Take 150 mg by mouth three times daily. LORazepam 1 mg ORAL tablet Take 1 mg by mouth every 6 hours as needed. meloxicam (MOBIC) 7.5 mg tablet Take 1 tablet by mouth once daily. Take with food. pantoprazole DR (PROTONIX) 40 mg tablet Take 1 tablet by mouth daily before breakfast. Take on empty stomach, 1/2 hr before meal. mirabegron (MYRBETRIQ) 50 mg Tb24 Take 1 tablet by mouth once daily. trospium (SANCTURA) 20 mg tablet Take 1 tablet by mouth twice daily. famotidine (PEPCID) 20 mg tablet Take 1 tablet by mouth at bedtime as needed. nystatin 1 billion unit powd Apply powder to genital area at bedtime lipase/protease/amylase (ZENPEP ORAL) Take by mouth. Take one tablet prior to meals and/or snacks (Patient not taking: Reported on 07/20/2021 ) MAGNESIUM ORAL Take 1,000 mg by mouth once daily. Take at bedtime calcium carbonate (TUMS E-X SUGAR FREE ORAL) Take by mouth. docusate sodium (COLACE) 100 mg capsule Take 1 capsule by mouth twice daily as needed. No current facility-administered medications for this visit. PHQ-9 08/07/2018 03/10/2021 05/25/2021 PHQ-2 Score 0 1 2 PHQ-9 Score - 7 5 Review of Systems CONSTITUTION: Negative for: Fever and Recent weight change HEENT: Positive for: Trouble swallowing and Dry mouth Negative for: Nosebleeds and Mouth sores RESPIRATORY: Positive for: Shortness of breath Negative for: Cough and Pain with breathing GASTROINTESTINAL: Negative for: Melena, Diarrhea, Heartburn and Abdominal pain MUSCULOSKELETAL: Positive for: Arthralgias, Myalgias, Muscle weakness, Joint swelling and Morning Joint Stiffness NEUROLOGICAL: Positive for: Headaches, Numbness and Memory loss SKIN: Positive for: Skin changes and Hair loss Negative for: Rash and Nail changes EYES: Negative for: Eye pain, Eye redness, Eye dryness and visual disturbance CARDIOVASCULAR: Positive for: Leg swelling Negative for: Chest pain GENITOURINARY: Negative for: Dysuria and Hematuria HEMATOLOGIC/LYMPHATIC: Negative for: Swollen glands PHQ9 PHQ-9 08/07/2018 03/10/2021 05/25/2021 PHQ-2 Score 0 1 2 PHQ-9 Score - 7 5 Reference Values for PHQ9 0 - 4: Minimal Depression 5 - 9: Mild Depression 10 - 14: Moderate Depression 15 - 19: Moderately Severe Depression 20 - 27: Severe Depression PHYSICAL EXAM BP 150/72 Pulse 64 Ht 174 cm (5' 8.5) Wt 136 kg (299 lb 14.4 oz) BMI 44.93 kg/m GENERAL: Pleasant male in NAD HEENT: Nonicteric sclerae, PERRLA, EOMI. Oropharynx clear. Moist mucous membranes. No scleral injection. No conjunctival discharge. Fair dentition. NODES: no cervical, submandibular, or subclavian LAD HEART: RRR, no mgr, no peripheral edema LUNGS: CTAB, no wrc, no increased WOB ABDOMEN: soft, NT, ND, BS present SKIN: No rash, no excessive bruising, petechiae, or purpura. NEUROLOGIC: Cranial nerves II-XII grossly intact without motor/sensory deficit. Following commands, speech fluent, normal gait. Psych: Pleasant, cooperative with history and exam. Appropriate mood and affect. MSK: OA/[place]berden/Katharine nodes in index and ring fingers. Spine: Cervical - FROM, non tender to palpation Lumbar - FROM, non tender, negative st. leg test Shoulders - bilateral non tender, no deformities, FROM, negative impingement signs Elbows - bilateral non tender, no effusion, no nodules, FROM Wrists- bilateral non tender, no effusion, no deformities, FROM Hands - bilateral MCP/PIP/DIP nontender, no deformities, no synovitis, FROM Hips - normal leg roll, non tender at groin and greater trochanter, FROM Knees- bilateral non tender at the patellar and quad tendon and at joint lines, no effusions, no crepitus, FROM Ankles - bilateral non tender, no effusions, FROM, non tender at the achilles and the plantar fascia, no nodules Feet - bilateral no deformities, non tender with MTP squeeze test, no synoviits, normal rom LABS: CBC Latest Ref Rng & Units 12/08/2018 09/08/2019 02/07/2021 07/15/2021 WBC 3.70 - 11.00 k/uL - 5.52 7.60 6.43 HEMOGLOBIN 13.0 - 17.0 g/dL - 13.6 13.2 13.3 HEMOGLOBIN, PABLITO 13.0 - 17.0 g/dL 13.5 - - - HEMATOCRIT 39.0 - 51.0 % - 42.3 41.5 39.7 PLATELETS 150 - 400 k/uL - 267 279 259 ABS NEUT (ANC) 1.45 - 7.50 k/uL - - 4.50 3.67 ABS NEUT, PABLITO 1.45 - 7.50 k/uL - - - - ABS LYMP, PABLITO 1.00 - 4.00 k/uL - - - - ABS LYMPH 1.00 - 4.00 k/uL - - 2.12 1.76 CMP Latest Ref Rng & Units 09/08/2019 03/25/2020 02/07/2021 07/15/2021 SODIUM 136 - 144 mmol/L 138 134(L) 135(L) 135(L) SODIUM, PABLITO 135 - 146 mmol/L - - - - SODIUM, PABLITO 135 - 146 mmol/L - - - - POTASSIUM 3.7 - 5.1 mmol/L 4.5 4.4 4.6 4.4 POTASSIUM, PABLITO 3.5 - 5.0 mmol/L - - - - CHLORIDE 97 - 105 mmol/L 102 98 101 101 CHLORIDE, PABLITO 98 - 110 mmol/L - - - - CO2 22 - 30 mmol/L 24 23 24 25 CO2, PABLITO 23.0 - 32.0 mmol/L - - - - GLUCOSE 74 - 99 mg/dL 121(H) 83 118(H) 106(H) GLUCOSE (U), PABLITO NEGAT mg/dL - - - - GLUCOSE, PABLITO 65 - 100 mg/dL - - - - BUN 9 - 24 mg/dL 17 14 17 14 BUN, PABLITO 10 - 25 mg/dL - - - - CREATININE 0.73 - 1.22 mg/dL 0.82 0.89 0.92 0.80 CREATININE, PABLITO 0.7 - 1.4 mg/dL - - - - CALCIUM, PABLITO 8.5 - 10.5 mg/dL - - - - CALCIUM, TOTAL 8.5 - 10.2 mg/dL 9.3 9.1 9.6 9.6 AST 14 - 40 U/L 21 21 18 21 AST, PABLITO 7 - 40 U/L - - - - ALT 10 - 54 U/L 33 22 21 29 ALT, PABLITO 5 - 50 U/L - - - - ALKALINE PHOSPHATASE 38 - 113 U/L 53 54 49 50 Uric Acid Latest Ref Rng & Units 02/23/2011 11/02/2016 12/08/2018 URIC ACID 4.0 - 8.1 mg/dL 7.4 6.4 6.7 ESR, WSR Latest Ref Rng & Units 08/10/2011 06/30/2016 10/06/2021 WSR 0 - 15 mm/hr - 9 10 SED RATE, PABLITO 0 - 10 mm/hr 14(H) - - CRP Latest Ref Rng & Units 02/23/2011 CRP 0.0 - 0.5 mg/dL 0.3 C3, C4 Latest Ref Rng & Units 07/01/2011 C3 68 - 260 mg/dL 115 C4 12 - 46 mg/dL 22 RF and CCP Latest Ref Rng & Units 10/06/2021 RHEUMATOID FACTOR <16 IU/mL <10 Hepatitis Screen Latest Ref Rng & Units 11/11/2015 HEPCABEIA Negative Negative Antibodies Latest Ref Rng & Units 05/28/2011 07/01/2011 10/06/2021 10/09/2021 PRANAY Negative Positive(A) Positive(A) Positive(A) - PRANAY BY EIA <1.5 OD Ratio 10.7(H) 6.3(H) - - PRANAY TITER Negative 1:80(A) 1:80(A) 1:160(A) - PRANAY PATTERN - Homogeneous Homogeneous Homogeneous - DNA ANTIBODY W/CONFIRMATION <30 IU/mL 26 38(H) 79(H) - SENIOR SUPPLIER QUALITY ENGINEER ANTIBODY <1.0 AI 0.3 0.4 2.9(H) 2.7(H) SSA ANTIBODY <1.0 AI <0.2 <0.2 <0.2 <0.2 SSB ANTIBODY <1.0 AI <0.2 <0.2 <0.2 <0.2 SHELLIE 1 ANTIBODY <1.0 AI <0.2 <0.2 <0.2 <0.2 RIBOSOMAL SENIOR SUPPLIER QUALITY ENGINEER <1.0 AI <0.2 <0.2 <0.2 <0.2 ANTI-SSA <1.0 AI <0.2 - - - ANTI-SSB <1.0 AI <0.2 - - - SM ANTIBODY <1.0 AI <0.2 <0.2 <0.2 <0.2 SCLERODERMA AB, IGG <1.0 AI <0.2 <0.2 <0.2 <0.2 CENTROMERE AB <1.0 AI <0.2 <0.2 <0.2 <0.2 CHROMATIN ANTIBODY <1.0 AI 1.2(H) 1.0(H) 4.6(H) 4.2(H) PT SEC 8.4 - 13.0 sec - - - - PT INR 0.8 - 1.2 - - - - ANCA Latest Ref Rng & Units 05/28/2011 MYELOPEROXIDASE ANTIBODY (MPO) 0 - 20 Units 4 PROTEINASE-3 ANTIBODY 0 - 20 Units 2 P-ANCA FLUORESCENCE NEGAT Anti Myeloperoxidase enzyme immunoassay result within normal limits but(A) C-ANCA FLUORESCENCE NEGAT Negative PANCA 0 - 20 Units 4 CANCA 0 - 20 Units 2 Urinalysis Latest Ref Rng & Units 08/09/2021 08/14/2021 09/08/2021 10/05/2021 PROTEIN, URINE Negative - - - - PROTEIN (U), PABLITO NEGAT mg/dL - - - - PROTEIN UA (POCT) Negative mg/dL Negative Negative Negative Negative RBC, URINE 0 - 3 /HPF - - - - RBC, URINE, PABLITO /hpf - - - - IMAGING Last XR Hand/Finger - Impression Only XR FINGERS THUMB RT Collected: 10/22/2014 1:15 PM (Final result) Complete Results Last XR Foot - Impression Only XR FOOT GENERAL 3V AP/LAT/OBL RT Exam End: 05/11/2019 3:04 PM (Final result) Impression: IMPRESSION: Pes planus and moderate to severe medial midfoot degenerative change. Integration Lead: VINCENT Transcribe Date/Time: May 11 2019 3:55P ... Complete Results Last XR Chest - Impression Only XR CHEST 2V FRONTAL/LAT Exam End: 06/13/2018 11:39 AM (Final result) Impression: IMPRESSION: No acute radiographic abnormality. Integration Lead: VINCENT ... Complete Results Last CT Chest - Impression Only CT CHEST W CONTRAST Collected: 02/16/2012 12:08 PM (Final result) Complete Results ASSESSMENT AND PLAN: In summary, this is a 71 year old male with PMH significant for MGUS, peripheral neuropathy, osteoarthritis, essential hypertension, hyperlipidemia, who presents rheumatologic evaluation in the setting of positive PRANAY and recent diagnosis of SLE in November 2021 when he visited a television installer helper [place]. Patient reports symptoms that are episodic but ongoing for about 15 years, mainly consisting of fires under the skin diffusely over his whole body, associated with fatigue, occasional muscle cramps, dry mouth, stiff fingers in the morning. He also has peripheral neuropathy, feels his hands are almost completely numb for the past 10 months. PRANAY 1:160 SENIOR SUPPLIER QUALITY ENGINEER 2.7 Chromatin antibody 4.2 Double-stranded DNA 79, Crithidia positive Given the above symptoms and positive pertinent labs, it is likely that Mr. De La Vega indeed has SLE; despite the fact that it is otherwise exceedingly rare to present in an older white male like him. At this juncture, will order additional labs to confirm and to evaluate for systemic involvement. Of note patient had TTE in [place] which was normal (report scanned into system), and a baseline ophthalmology evaluation prior to starting hydroxychloroquine. Nerve testing done in the past ruled out large fiber neuropathy. His current fire sensation could be consistent with a small fiber neuropathy, possibly in the setting of MGUS, which the patient is known to have. Given that hydroxychloroquine and Lyrica were both started at the same time, it is unclear which of the 2 drugs contributed most. Would be reasonable to continue both at this point. Patient was counseled on the side effect profile of each of these drugs. Order: SPEP, UPEP, UA with microscopy Lupus anticoagulant panel Creatinine kinase CBC M Lena He MD Internal Medicine PGY-1 The above patient was seen and discussed with the attending physician, Dr. Seo RHEUMATOLOGY ATTENDING STAFF NOTE: I reviewed the history and physical obtained and documented by the fellow/resident. I personally participated in the petersen components of the visit. The following comments revise or confirm the relevant petersen elements of the fellow's/resident's note: HISTORY: As outlined above. Hx of chronic pains Like on fire in body Had seen Neurology in the past Saw rheumatology remotely with (+) PRANAY and chromatin Not thought to be significant. Had more recent labs now with (+) PRANAY, SENIOR SUPPLIER QUALITY ENGINEER, dsDNA and chromatin. Saw television installer helper whilst in [place] and diagnosed with SLE Started on HCQ and Lyrica Maybe 50% better now No clear med side effects PHYSICAL EXAM: As outlined above. No skin rashes Joints with some OA changes of fingers Heart RRR Lungs clear Gen Neuro exam negative Reviewed EMR and outside records I discussed the case and the impression and plan with the fellow/resident. IMPRESSION: As outlined above. 1. 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 Likely small fiber neuropathy Based on symptoms Could be due to SLE or gammopathy Has seen Neurology in the past 3. Osteoarthritis 4. Gammopathy Has seen Hematology in the past 5. Overweight 6. HTN 7. Hyperlipidemia 8. Anxiety / Depression 9. Ophtho up to date 10. Echocardiogram done 12/22 with RVSP est at 38 mmHg PLAN: As outlined above. 1. Labs 2. May need FU Hematology if still had gammopathy 3. Consider new Neurology consult 4. Will need Ophtho yearly if stays on HCQ 5. Repeat echocardiogram in one year 6. Reviewed risks of Lyrica 7. Reviewed risks of HCQ 8. Presently, don't see a role for more aggressive immunosuppression Pat Seo MD, FACR documented in this encounter [facility] 05-21-2013 History of Past i llness Narrative Problem Noted Date Resolved Date 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 Dizziness and giddiness 03/02/2013 06/13/20 17 Fever 03/10/2011 06/13/2017 Peripheral neuropathy, idiopathic 01/18/2011 06/13/2017 Anemia, unspecified 03/27/2008 08/20/2013 documented as of this encounter (statuses as of 01/15/2022) [facility] History of Past illness Narrative* Problem Noted Date Resolved Date 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 Dizziness and giddiness 03/02/2013 06/13/20 17 Fever 03/10/2011 06/13/2017 Peripheral neuropathy, idiopathic 01/18/2011 06/13/2017 Anemia, unspecified 03/27/2008 08/20/2013 documented as of this encounter (statuses as of 01/16/2022) [facility] History of Past illness Narrative* Problem Noted Date Resolved Date 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 Dizziness and giddiness 03/02/2013 06/13/20 17 Fever 03/10/2011 06/13/2017 Peripheral neuropathy, idiopathic 01/18/2011 06/13/2017 Anemia, unspecified 03/27/2008 08/20/2013 documented as of this encounter (statuses as of 01/17/2022) [facility] History of Past illness Narrative* Problem Noted Date Resolved Date 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 Dizziness and giddiness 03/02/2013 06/13/20 17 Fever 03/10/2011 06/13/2017 Peripheral neuropathy, idiopathic 01/18/2011 06/13/2017 Anemia, unspecified 03/27/2008 08/20/2013 documented as of this encounter (statuses as of 01/27/2022) [facility] History of Past illness Narrative* Problem Noted Date Resolved Date 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 Dizziness and giddiness 03/02/2013 06/13/20 17 Fever 03/10/2011 06/13/2017 Peripheral neuropathy, idiopathic 01/18/2011 06/13/2017 Anemia, unspecified 03/27/2008 08/20/2013 documented as of this encounter (statuses as of 02/15/2022) [facility] History of Past illness Narrative* Problem Noted Date Resolved Date 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 Dizziness and giddiness 03/02/2013 06/13/20 17 Fever 03/10/2011 06/13/2017 Peripheral neuropathy, idiopathic 01/18/2011 06/13/2017 Anemia, unspecified 03/27/2008 08/20/2013 documented as of this encounter (statuses as of 02/17/2022) [facility] History of Past illness Narrative* Problem Noted Date Resolved Date 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 Dizziness and giddiness 03/02/2013 06/13/20 17 Fever 03/10/2011 06/13/2017 Peripheral neuropathy, idiopathic 01/18/2011 06/13/2017 Anemia, unspecified 03/27/2008 08/20/2013 documented as of this encounter (statuses as of 02/23/2022) [facility] History of Past illness Narrative* Problem Noted Date Resolved Date 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 Dizziness and giddiness 03/02/2013 06/13/20 17 Fever 03/10/2011 06/13/2017 Peripheral neuropathy, idiopathic 01/18/2011 06/13/2017 Anemia, unspecified 03/27/2008 08/20/2013 documented as of this encounter (statuses as of 02/25/2022) [facility] History of Past illness Narrative* Problem Noted Date Resolved Date 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 Dizziness and giddiness 03/02/2013 06/13/20 17 Fever 03/10/2011 06/13/2017 Peripheral neuropathy, idiopathic 01/18/2011 06/13/2017 Anemia, unspecified 03/27/2008 08/20/2013 documented as of this encounter (statuses as of 02/26/2022) [facility] History of Past illness Narrative* Problem Noted Date Resolved Date 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 Dizziness and giddiness 03/02/2013 06/13/20 17 Fever 03/10/2011 06/13/2017 Peripheral neuropathy, idiopathic 01/18/2011 06/13/2017 Anemia, unspecified 03/27/2008 08/20/2013 documented as of this encounter (statuses as of 03/05/2022) [facility] History of Past illness Narrative* Problem Noted Date Resolved Date 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 Dizziness and giddiness 03/02/2013 06/13/20 17 Fever 03/10/2011 06/13/2017 Peripheral neuropathy, idiopathic 01/18/2011 06/13/2017 Anemia, unspecified 03/27/2008 08/20/2013 documented as of this encounter (statuses as of 03/10/2022) [facility] History of Past illness Narrative* Problem Noted Date Resolved Date 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 Dizziness and giddiness 03/02/2013 06/13/20 17 Fever 03/10/2011 06/13/2017 Peripheral neuropathy, idiopathic 01/18/2011 06/13/2017 Anemia, unspecified 03/27/2008 08/20/2013 documented as of this encounter (statuses as of 03/11/2022) [facility] History of Past illness Narrative* Problem Noted Date Resolved Date 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 Dizziness and giddiness 03/02/2013 06/13/20 17 Fever 03/10/2011 06/13/2017 Peripheral neuropathy, idiopathic 01/18/2011 06/13/2017 Anemia, unspecified 03/27/2008 08/20/2013 documented as of this encounter (statuses as of 03/12/2022) [facility] History of Past illness Narrative* Problem Noted Date Resolved Date 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 Dizziness and giddiness 03/02/2013 06/13/20 17 Fever 03/10/2011 06/13/2017 Peripheral neuropathy, idiopathic 01/18/2011 06/13/2017 Anemia, unspecified 03/27/2008 08/20/2013 documented as of this encounter (statuses as of 03/13/2022) [facility] History of Past illness Narrative* Problem Noted Date Resolved Date 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 Dizziness and giddiness 03/02/2013 06/13/20 17 Fever 03/10/2011 06/13/2017 Peripheral neuropathy, idiopathic 01/18/2011 06/13/2017 Anemia, unspecified 03/27/2008 08/20/2013 documented as of this encounter (statuses as of 03/23/2022) [facility] History of Past illness Narrative* Problem Noted Date Resolved Date 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 Dizziness and giddiness 03/02/2013 06/13/20 17 Fever 03/10/2011 06/13/2017 Peripheral neuropathy, idiopathic 01/18/2011 06/13/2017 Anemia, unspecified 03/27/2008 08/20/2013 documented as of this encounter (statuses as of 04/02/2022) [facility] History of Past illness Narrative* Problem Noted Date Resolved Date 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 Dizziness and giddiness 03/02/2013 06/13/20 17 Fever 03/10/2011 06/13/2017 Peripheral neuropathy, idiopathic 01/18/2011 06/13/2017 Anemia, unspecified 03/27/2008 08/20/2013 documented as of this encounter (statuses as of 04/20/2022) [facility] History of Past illness Narrative* Problem Noted Date Resolved Date 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 Dizziness and giddiness 03/02/2013 06/13/20 17 Fever 03/10/2011 06/13/2017 Peripheral neuropathy, idiopathic 01/18/2011 06/13/2017 Anemia, unspecified 03/27/2008 08/20/2013 documented as of this encounter (statuses as of 04/23/2022) [facility] History of Past illness Narrative* Problem Noted Date Resolved Date 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 Dizziness and giddiness 03/02/2013 06/13/20 17 Fever 03/10/2011 06/13/2017 Peripheral neuropathy, idiopathic 01/18/2011 06/13/2017 Anemia, unspecified 03/27/2008 08/20/2013 documented as of this encounter (statuses as of 05/03/2022) [facility] History of Past illness Narrative* Problem Noted Date Resolved Date 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 Dizziness and giddiness 03/02/2013 06/13/20 17 Fever 03/10/2011 06/13/2017 Peripheral neuropathy, idiopathic 01/18/2011 06/13/2017 Anemia, unspecified 03/27/2008 08/20/2013 documented as of this encounter (statuses as of 05/20/2022) [facility] History of Past illness Narrative* Problem Noted Date Resolved Date 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 Dizziness and giddiness 03/02/2013 06/13/20 17 Fever 03/10/2011 06/13/2017 Peripheral neuropathy, idiopathic 01/18/2011 06/13/2017 Anemia, unspecified 03/27/2008 08/20/2013 documented as of this encounter (statuses as of 05/31/2022) [facility] History of Past illness Narrative* Problem Noted Date Resolved Date 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 Dizziness and giddiness 03/02/2013 06/13/20 17 Fever 03/10/2011 06/13/2017 Peripheral neuropathy, idiopathic 01/18/2011 06/13/2017 Anemia, unspecified 03/27/2008 08/20/2013 documented as of this encounter (statuses as of 06/01/2022) [facility] History of Past illness Narrative* Problem Noted Date Resolved Date 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 Dizziness and giddiness 03/02/2013 06/13/20 17 Fever 03/10/2011 06/13/2017 Peripheral neuropathy, idiopathic 01/18/2011 06/13/2017 Anemia, unspecified 03/27/2008 08/20/2013 documented as of this encounter (statuses as of 06/10/2022) [facility] History of Past illness Narrative* Problem Noted Date Resolved Date 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 Dizziness and giddiness 03/02/2013 06/13/20 17 Fever 03/10/2011 06/13/2017 Peripheral neuropathy, idiopathic 01/18/2011 06/13/2017 Anemia, unspecified 03/27/2008 08/20/2013 documented as of this encounter (statuses as of 07/01/2022) [facility] History of Past illness Narrative* Problem Noted Date Resolved Date 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 Dizziness and giddiness 03/02/2013 06/13/20 17 Fever 03/10/2011 06/13/2017 Peripheral neuropathy, idiopathic 01/18/2011 06/13/2017 Anemia, unspecified 03/27/2008 08/20/2013 documented as of this encounter (statuses as of 07/06/2022) [facility] History of Past illness Narrative* Problem Noted Date Resolved Date 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 Dizziness and giddiness 03/02/2013 06/13/20 17 Fever 03/10/2011 06/13/2017 Peripheral neuropathy, idiopathic 01/18/2011 06/13/2017 Anemia, unspecified 03/27/2008 08/20/2013 documented as of this encounter (statuses as of 07/12/2022) [facility] History of Past illness Narrative* Problem Noted Date Resolved Date 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 Dizziness and giddiness 03/02/2013 06/13/20 17 Fever 03/10/2011 06/13/2017 Peripheral neuropathy, idiopathic 01/18/2011 06/13/2017 Anemia, unspecified 03/27/2008 08/20/2013 documented as of this encounter (statuses as of 07/22/2022) [facility] History of Past illness Narrative* Problem Noted Date Resolved Date 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 Dizziness and giddiness 03/02/2013 06/13/20 17 Fever 03/10/2011 06/13/2017 Peripheral neuropathy, idiopathic 01/18/2011 06/13/2017 Anemia, unspecified 03/27/2008 08/20/2013 documented as of this encounter (statuses as of 07/22/2022) [facility] History of Past illness Narrative* Problem Noted Date Resolved Date 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 Dizziness and giddiness 03/02/2013 06/13/20 17 Fever 03/10/2011 06/13/2017 Peripheral neuropathy, idiopathic 01/18/2011 06/13/2017 Anemia, unspecified 03/27/2008 08/20/2013 documented as of this encounter (statuses as of 07/22/2022) [facility] History of Past illness Narrative* Problem Noted Date Resolved Date 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 Dizziness and giddiness 03/02/2013 06/13/20 17 Fever 03/10/2011 06/13/2017 Peripheral neuropathy, idiopathic 01/18/2011 06/13/2017 Anemia, unspecified 03/27/2008 08/20/2013 documented as of this encounter (statuses as of 07/23/2022) [facility] History of Past illness Narrative* Problem Noted Date Resolved Date 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 Dizziness and giddiness 03/02/2013 06/13/20 17 Fever 03/10/2011 06/13/2017 Peripheral neuropathy, idiopathic 01/18/2011 06/13/2017 Anemia, unspecified 03/27/2008 08/20/2013 documented as of this encounter (statuses as of 07/28/2022) [facility] History of Past illness Narrative* Problem Noted Date Resolved Date 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 Dizziness and giddiness 03/02/2013 06/13/20 17 Fever 03/10/2011 06/13/2017 Peripheral neuropathy, idiopathic 01/18/2011 06/13/2017 Anemia, unspecified 03/27/2008 08/20/2013 documented as of this encounter (statuses as of 08/03/2022) [facility] History of Past illness Narrative* Problem Noted Date Resolved Date 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 Dizziness and giddiness 03/02/2013 06/13/20 17 Fever 03/10/2011 06/13/2017 Peripheral neuropathy, idiopathic 01/18/2011 06/13/2017 Anemia, unspecified 03/27/2008 08/20/2013 documented as of this encounter (statuses as of 08/06/2022) [facility] History of Past illness Narrative* Problem Noted Date Resolved Date 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 Dizziness and giddiness 03/02/2013 06/13/20 17 Fever 03/10/2011 06/13/2017 Peripheral neuropathy, idiopathic 01/18/2011 06/13/2017 Anemia, unspecified 03/27/2008 08/20/2013 documented as of this encounter (statuses as of 08/07/2022) [facility] History of Past illness Narrative* Problem Noted Date Resolved Date 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 Dizziness and giddiness 03/02/2013 06/13/20 17 Fever 03/10/2011 06/13/2017 Peripheral neuropathy, idiopathic 01/18/2011 06/13/2017 Anemia, unspecified 03/27/2008 08/20/2013 documented as of this encounter (statuses as of 08/09/2022) [facility] History of Past illness Narrative* Problem Noted Date Resolved Date 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 Dizziness and giddiness 03/02/2013 06/13/20 17 Fever 03/10/2011 06/13/2017 Peripheral neuropathy, idiopathic 01/18/2011 06/13/2017 Anemia, unspecified 03/27/2008 08/20/2013 documented as of this encounter (statuses as of 08/11/2022) [facility] History of Past illness Narrative* Problem Noted Date Resolved Date 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 Dizziness and giddiness 03/02/2013 06/13/20 17 Fever 03/10/2011 06/13/2017 Peripheral neuropathy, idiopathic 01/18/2011 06/13/2017 Anemia, unspecified 03/27/2008 08/20/2013 documented as of this encounter (statuses as of 08/13/2022) [facility] History of Past illness Narrative* Problem Noted Date Resolved Date 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 Dizziness and giddiness 03/02/2013 06/13/20 17 Fever 03/10/2011 06/13/2017 Peripheral neuropathy, idiopathic 01/18/2011 06/13/2017 Anemia, unspecified 03/27/2008 08/20/2013 documented as of this encounter (statuses as of 08/15/2022) [facility] History of Past illness Narrative* Problem Noted Date Resolved Date 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 Dizziness and giddiness 03/02/2013 06/13/20 17 Fever 03/10/2011 06/13/2017 Peripheral neuropathy, idiopathic 01/18/2011 06/13/2017 Anemia, unspecified 03/27/2008 08/20/2013 documented as of this encounter (statuses as of 08/30/2022) [facility] History of Past illness Narrative* Problem Noted Date Resolved Date 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 Dizziness and giddiness 03/02/2013 06/13/20 17 Fever 03/10/2011 06/13/2017 Peripheral neuropathy, idiopathic 01/18/2011 06/13/2017 Anemia, unspecified 03/27/2008 08/20/2013 documented as of this encounter (statuses as of 08/31/2022) [facility] History of Past illness Narrative* Problem Noted Date Resolved Date 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 Dizziness and giddiness 03/02/2013 06/13/20 17 Fever 03/10/2011 06/13/2017 Peripheral neuropathy, idiopathic 01/18/2011 06/13/2017 Anemia, unspecified 03/27/2008 08/20/2013 documented as of this encounter (statuses as of 08/31/2022) [facility] History of Past illness Narrative* Problem Noted Date Resolved Date 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 Dizziness and giddiness 03/02/2013 06/13/20 17 Fever 03/10/2011 06/13/2017 Peripheral neuropathy, idiopathic 01/18/2011 06/13/2017 Anemia, unspecified 03/27/2008 08/20/2013 documented as of this encounter (statuses as of 09/01/2022) [facility] History of Past illness Narrative* Problem Noted Date Resolved Date 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 Dizziness and giddiness 03/02/2013 06/13/20 17 Fever 03/10/2011 06/13/2017 Peripheral neuropathy, idiopathic 01/18/2011 06/13/2017 Anemia, unspecified 03/27/2008 08/20/2013 documented as of this encounter (statuses as of 09/02/2022) [facility] History of Past illness Narrative* Problem Noted Date Resolved Date 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 Dizziness and giddiness 03/02/2013 06/13/20 17 Fever 03/10/2011 06/13/2017 Peripheral neuropathy, idiopathic 01/18/2011 06/13/2017 Anemia, unspecified 03/27/2008 08/20/2013 documented as of this encounter (statuses as of 09/13/2022) [facility] History of Past illness Narrative* Problem Noted Date Resolved Date 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 Dizziness and giddiness 03/02/2013 06/13/20 17 Fever 03/10/2011 06/13/2017 Peripheral neuropathy, idiopathic 01/18/2011 06/13/2017 Anemia, unspecified 03/27/2008 08/20/2013 documented as of this encounter (statuses as of 09/14/2022) [facility] History of Past illness Narrative* Problem Noted Date Resolved Date 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 Dizziness and giddiness 03/02/2013 06/13/20 17 Fever 03/10/2011 06/13/2017 Peripheral neuropathy, idiopathic 01/18/2011 06/13/2017 Anemia, unspecified 03/27/2008 08/20/2013 documented as of this encounter (statuses as of 09/14/2022) [facility] History of Past illness Narrative* Problem Noted Date Resolved Date 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 Dizziness and giddiness 03/02/2013 06/13/20 17 Fever 03/10/2011 06/13/2017 Peripheral neuropathy, idiopathic 01/18/2011 06/13/2017 Anemia, unspecified 03/27/2008 08/20/2013 documented as of this encounter (statuses as of 09/17/2022) [facility] History of Past illness Narrative* Problem Noted Date Resolved Date 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 Dizziness and giddiness 03/02/2013 06/13/20 17 Fever 03/10/2011 06/13/2017 Peripheral neuropathy, idiopathic 01/18/2011 06/13/2017 Anemia, unspecified 03/27/2008 08/20/2013 documented as of this encounter (statuses as of 09/26/2022) [facility] History of Past illness Narrative* Problem Noted Date Resolved Date 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 Dizziness and giddiness 03/02/2013 06/13/20 17 Fever 03/10/2011 06/13/2017 Peripheral neuropathy, idiopathic 01/18/2011 06/13/2017 Anemia, unspecified 03/27/2008 08/20/2013 documented as of this encounter (statuses as of 10/05/2022) [facility] History of Past illness Narrative* Problem Noted Date Resolved Date 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 Dizziness and giddiness 03/02/2013 06/13/20 17 Fever 03/10/2011 06/13/2017 Peripheral neuropathy, idiopathic 01/18/2011 06/13/2017 Anemia, unspecified 03/27/2008 08/20/2013 documented as of this encounter (statuses as of 10/06/2022) [facility] History of Past illness Narrative* Problem Noted Date Resolved Date 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 Dizziness and giddiness 03/02/2013 06/13/20 17 Fever 03/10/2011 06/13/2017 Peripheral neuropathy, idiopathic 01/18/2011 06/13/2017 Anemia, unspecified 03/27/2008 08/20/2013 documented as of this encounter (statuses as of 10/07/2022) [facility] History of Past illness Narrative* Problem Noted Date Resolved Date 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 Dizziness and giddiness 03/02/2013 06/13/20 17 Fever 03/10/2011 06/13/2017 Peripheral neuropathy, idiopathic 01/18/2011 06/13/2017 Anemia, unspecified 03/27/2008 08/20/2013 documented as of this encounter (statuses as of 10/08/2022) [facility] History of Past illness Narrative* Problem Noted Date Resolved Date 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 Dizziness and giddiness 03/02/2013 06/13/20 17 Fever 03/10/2011 06/13/2017 Peripheral neuropathy, idiopathic 01/18/2011 06/13/2017 Anemia, unspecified 03/27/2008 08/20/2013 documented as of this encounter (statuses as of 10/28/2022) [facility] History of Past illness Narrative* Problem Noted Date Resolved Date 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 Dizziness and giddiness 03/02/2013 06/13/20 17 Fever 03/10/2011 06/13/2017 Peripheral neuropathy, idiopathic 01/18/2011 06/13/2017 Anemia, unspecified 03/27/2008 08/20/2013 documented as of this encounter (statuses as of 10/28/2022) [facility] History of Past illness Narrative* Problem Noted Date Resolved Date 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 Dizziness and giddiness 03/02/2013 06/13/20 17 Fever 03/10/2011 06/13/2017 Peripheral neuropathy, idiopathic 01/18/2011 06/13/2017 Anemia, unspecified 03/27/2008 08/20/2013 documented as of this encounter (statuses as of 11/10/2022) [facility] History of Past illness Narrative* Problem Noted Date Resolved Date 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 Dizziness and giddiness 03/02/2013 06/13/20 17 Fever 03/10/2011 06/13/2017 Peripheral neuropathy, idiopathic 01/18/2011 06/13/2017 Anemia, unspecified 03/27/2008 08/20/2013 documented as of this encounter (statuses as of 12/20/2022) [facility] History of Past illness Narrative* Problem Noted Date Resolved Date 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 Dizziness and giddiness 03/02/2013 06/13/20 17 Fever 03/10/2011 06/13/2017 Peripheral neuropathy, idiopathic 01/18/2011 06/13/2017 Anemia, unspecified 03/27/2008 08/20/2013 documented as of this encounter (statuses as of 12/23/2022) [facility] History of Past illness Narrative* Problem Noted Date Resolved Date 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 Dizziness and giddiness 03/02/2013 06/13/20 17 Fever 03/10/2011 06/13/2017 Peripheral neuropathy, idiopathic 01/18/2011 06/13/2017 Anemia, unspecified 03/27/2008 08/20/2013 documented as of this encounter (statuses as of 12/29/2022) [facility] History of Past illness Narrative* Problem Noted Date Resolved Date 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 Dizziness and giddiness 03/02/2013 06/13/20 17 Fever 03/10/2011 06/13/2017 Peripheral neuropathy, idiopathic 01/18/2011 06/13/2017 Anemia, unspecified 03/27/2008 08/20/2013 documented as of this encounter (statuses as of 01/12/2023) [facility] History of Past illness Narrative* Problem Noted Date Resolved Date 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 Dizziness and giddiness 03/02/2013 06/13/20 17 Fever 03/10/2011 06/13/2017 Peripheral neuropathy, idiopathic 01/18/2011 06/13/2017 Anemia, unspecified 03/27/2008 08/20/2013 documented as of this encounter (statuses as of 01/21/2023) [facility] History of Past illness Narrative* Problem Noted Date Resolved Date 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 Dizziness and giddiness 03/02/2013 06/13/20 17 Fever 03/10/2011 06/13/2017 Peripheral neuropathy, idiopathic 01/18/2011 06/13/2017 Anemia, unspecified 03/27/2008 08/20/2013 documented as of this encounter (statuses as of 01/24/2023) [facility] History of Past illness Narrative* Problem Noted Date Resolved Date 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 Dizziness and giddiness 03/02/2013 06/13/20 17 Fever 03/10/2011 06/13/2017 Peripheral neuropathy, idiopathic 01/18/2011 06/13/2017 Anemia, unspecified 03/27/2008 08/20/2013 documented as of this encounter (statuses as of 01/24/2023) [facility] History of Past illness Narrative* Problem Noted Date Resolved Date 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 Dizziness and giddiness 03/02/2013 06/13/20 17 Fever 03/10/2011 06/13/2017 Peripheral neuropathy, idiopathic 01/18/2011 06/13/2017 Anemia, unspecified 03/27/2008 08/20/2013 documented as of this encounter (statuses as of 01/24/2023) [facility] History of Past illness Narrative* Problem Noted Date Resolved Date 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 Dizziness and giddiness 03/02/2013 06/13/20 17 Fever 03/10/2011 06/13/2017 Peripheral neuropathy, idiopathic 01/18/2011 06/13/2017 Anemia, unspecified 03/27/2008 08/20/2013 documented as of this encounter (statuses as of 01/25/2023) [facility] History of Past illness Narrative* Problem Noted Date Resolved Date 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 Dizziness and giddiness 03/02/2013 06/13/20 17 Fever 03/10/2011 06/13/2017 Peripheral neuropathy, idiopathic 01/18/2011 06/13/2017 Anemia, unspecified 03/27/2008 08/20/2013 documented as of this encounter (statuses as of 02/01/2023) [facility] History of Past illness Narrative* Problem Noted Date Resolved Date 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 Dizziness and giddiness 03/02/2013 06/13/20 17 Fever 03/10/2011 06/13/2017 Peripheral neuropathy, idiopathic 01/18/2011 06/13/2017 Anemia, unspecified 03/27/2008 08/20/2013 documented as of this encounter (statuses as of 02/03/2023) [facility] History of Past illness Narrative* Problem Noted Date Resolved Date 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 Dizziness and giddiness 03/02/2013 06/13/20 17 Fever 03/10/2011 06/13/2017 Peripheral neuropathy, idiopathic 01/18/2011 06/13/2017 Anemia, unspecified 03/27/2008 08/20/2013 documented as of this encounter (statuses as of 02/07/2023) [facility] History of Past illness Narrative* Problem Noted Date Resolved Date 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 Dizziness and giddiness 03/02/2013 06/13/20 17 Fever 03/10/2011 06/13/2017 Peripheral neuropathy, idiopathic 01/18/2011 06/13/2017 Anemia, unspecified 03/27/2008 08/20/2013 documented as of this encounter (statuses as of 02/11/2023) [facility] History of Past illness Narrative* Problem Noted Date Resolved Date 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 Dizziness and giddiness 03/02/2013 06/13/20 17 Fever 03/10/2011 06/13/2017 Peripheral neuropathy, idiopathic 01/18/2011 06/13/2017 Anemia, unspecified 03/27/2008 08/20/2013 documented as of this encounter (statuses as of 03/23/2023) [facility] History of Past illness Narrative* Problem Noted Date Resolved Date 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 Dizziness and giddiness 03/02/2013 06/13/20 17 Fever 03/10/2011 06/13/2017 Peripheral neuropathy, idiopathic 01/18/2011 06/13/2017 Anemia, unspecified 03/27/2008 08/20/2013 documented as of this encounter (statuses as of 03/29/2023) [facility] History of Past illness Narrative* Problem Noted Date Diagnosed Date Resolved Date 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 05/21/2013 06/13/2017 Dizziness and giddiness 03/02/201306/03 Fever 03/10/2011 06/13/2017 Peripheral neuropathy, idiopathic 01/18/2011 06/13/2017 Anemia, unspecified 03/27/2008 08/20/20 13 documented as of this encounter (statuses as of 04/11/2023) [facility] History of Past illness Narrative* Problem Noted Date Diagnosed Date Resolved Date 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 05/21/2013 06/13/2017 Dizziness and giddiness 03/02/201306/03 Fever 03/10/2011 06/13/2017 Peripheral neuropathy, idiopathic 01/18/2011 06/13/2017 Anemia, unspecified 03/27/2008 08/20/20 13 documented as of this encounter (statuses as of 04/13/2023) [facility] History of Past illness Narrative* Problem Noted Date Diagnosed Date Resolved Date 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 05/21/2013 06/13/2017 Dizziness and giddiness 03/02/201306/03 Fever 03/10/2011 06/13/2017 Peripheral neuropathy, idiopathic 01/18/2011 06/13/2017 Anemia, unspecified 03/27/2008 08/20/20 13 documented as of this encounter (statuses as of 04/18/2023) [facility] History of Past illness Narrative* Problem Noted Date Diagnosed Date Resolved Date 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 05/21/2013 06/13/2017 Dizziness and giddiness 03/02/201306/03 Fever 03/10/2011 06/13/2017 Peripheral neuropathy, idiopathic 01/18/2011 06/13/2017 Anemia, unspecified 03/27/2008 08/20/20 13 documented as of this encounter (statuses as of 05/18/2023) [facility] History of Past illness Narrative* Problem Noted Date Diagnosed Date Resolved Date 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 05/21/2013 06/13/2017 Dizziness and giddiness 03/02/201306/03 Fever 03/10/2011 06/13/2017 Peripheral neuropathy, idiopathic 01/18/2011 06/13/2017 Anemia, unspecified 03/27/2008 08/20/20 13 documented as of this encounter (statuses as of 05/18/2023) [facility] History of Past illness Narrative* Problem Noted Date Diagnosed Date Resolved Date 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 05/21/2013 06/13/2017 Dizziness and giddiness 03/02/201306/03 Fever 03/10/2011 06/13/2017 Peripheral neuropathy, idiopathic 01/18/2011 06/13/2017 Anemia, unspecified 03/27/2008 08/20/20 13 documented as of this encounter (statuses as of 05/19/2023) [facility] History of Past illness Narrative* Problem Noted Date Diagnosed Date Resolved Date 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 05/21/2013 06/13/2017 Dizziness and giddiness 03/02/201306/03 Fever 03/10/2011 06/13/2017 Peripheral neuropathy, idiopathic 01/18/2011 06/13/2017 Anemia, unspecified 03/27/2008 08/20/20 13 documented as of this encounter (statuses as of 05/22/2023) [facility] History of Past illness Narrative* Problem Noted Date Diagnosed Date Resolved Date 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 05/21/2013 06/13/2017 Dizziness and giddiness 03/02/201306/03 Fever 03/10/2011 06/13/2017 Peripheral neuropathy, idiopathic 01/18/2011 06/13/2017 Anemia, unspecified 03/27/2008 08/20/20 13 documented as of this encounter (statuses as of 05/23/2023) [facility] History of Past illness Narrative* Problem Noted Date Diagnosed Date Resolved Date 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 05/21/2013 06/13/2017 Dizziness and giddiness 03/02/201306/03 Fever 03/10/2011 06/13/2017 Peripheral neuropathy, idiopathic 01/18/2011 06/13/2017 Anemia, unspecified 03/27/2008 08/20/20 13 documented as of this encounter (statuses as of 05/26/2023) [facility] History of Past illness Narrative* Problem Noted Date Diagnosed Date Resolved Date 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 05/21/2013 06/13/2017 Dizziness and giddiness 03/02/201306/03 Fever 03/10/2011 06/13/2017 Peripheral neuropathy, idiopathic 01/18/2011 06/13/2017 Anemia, unspecified 03/27/2008 08/20/20 13 documented as of this encounter (statuses as of 06/09/2023) [facility] History of Past illness Narrative* Problem Noted Date Diagnosed Date Resolved Date 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 05/21/2013 06/13/2017 Dizziness and giddiness 03/02/201306/03 Fever 03/10/2011 06/13/2017 Peripheral neuropathy, idiopathic 01/18/2011 06/13/2017 Anemia, unspecified 03/27/2008 08/20/20 13 documented as of this encounter (statuses as of 07/08/2023) [facility] History of Past illness Narrative* Problem Noted Date Diagnosed Date Resolved Date 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 05/21/2013 06/13/2017 Dizziness and giddiness 03/02/201306/03 Fever 03/10/2011 06/13/2017 Peripheral neuropathy, idiopathic 01/18/2011 06/13/2017 Anemia, unspecified 03/27/2008 08/20/20 13 documented as of this encounter (statuses as of 07/09/2023) [facility] History of Past illness Narrative* Problem Noted Date Diagnosed Date Resolved Date 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 05/21/2013 06/13/2017 Dizziness and giddiness 03/02/201306/03 Fever 03/10/2011 06/13/2017 Peripheral neuropathy, idiopathic 01/18/2011 06/13/2017 Anemia, unspecified 03/27/2008 08/20/20 13 documented as of this encounter (statuses as of 07/20/2023) [facility] History of Past illness Narrative* Problem Noted Date Diagnosed Date Resolved Date 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 05/21/2013 06/13/2017 Dizziness and giddiness 03/02/201306/03 Fever 03/10/2011 06/13/2017 Peripheral neuropathy, idiopathic 01/18/2011 06/13/2017 Anemia, unspecified 03/27/2008 08/20/20 13 documented as of this encounter (statuses as of 07/21/2023) [facility] History of Past illness Narrative* Problem Noted Date Diagnosed Date Resolved Date 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 05/21/2013 06/13/2017 Dizziness and giddiness 03/02/201306/03 Fever 03/10/2011 06/13/2017 Peripheral neuropathy, idiopathic 01/18/2011 06/13/2017 Anemia, unspecified 03/27/2008 08/20/20 13 documented as of this encounter (statuses as of 07/29/2023) [facility] History of Past illness Narrative* Problem Noted Date Diagnosed Date Resolved Date 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 05/21/2013 06/13/2017 Dizziness and giddiness 03/02/201306/03 Fever 03/10/2011 06/13/2017 Peripheral neuropathy, idiopathic 01/18/2011 06/13/2017 Anemia, unspecified 03/27/2008 08/20/20 13 documented as of this encounter (statuses as of 08/03/2023) [facility] History of Past illness Narrative* Problem Noted Date Diagnosed Date Resolved Date 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 05/21/2013 06/13/2017 Dizziness and giddiness 03/02/201306/03 Fever 03/10/2011 06/13/2017 Peripheral neuropathy, idiopathic 01/18/2011 06/13/2017 Anemia, unspecified 03/27/2008 08/20/20 13 documented as of this encounter (statuses as of 08/04/2023) [facility] History of Past illness Narrative* Problem Noted Date Diagnosed Date Resolved Date 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 05/21/2013 06/13/2017 Dizziness and giddiness 03/02/201306/03 Fever 03/10/2011 06/13/2017 Peripheral neuropathy, idiopathic 01/18/2011 06/13/2017 Anemia, unspecified 03/27/2008 08/20/20 13 documented as of this encounter (statuses as of 08/06/2023) [facility] History of Past illness Narrative* Problem Noted Date Diagnosed Date Resolved Date 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 05/21/2013 06/13/2017 Dizziness and giddiness 03/02/201306/03 Fever 03/10/2011 06/13/2017 Peripheral neuropathy, idiopathic 01/18/2011 06/13/2017 Anemia, unspecified 03/27/2008 08/20/20 13 documented as of this encounter (statuses as of 08/10/2023) [facility] History of Past illness Narrative* Problem Noted Date Diagnosed Date Resolved Date 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 05/21/2013 06/13/2017 Dizziness and giddiness 03/02/201306/03 Fever 03/10/2011 06/13/2017 Peripheral neuropathy, idiopathic 01/18/2011 06/13/2017 Anemia, unspecified 03/27/2008 08/20/20 13 documented as of this encounter (statuses as of 08/19/2023) [facility] History of Past illness Narrative* Problem Noted Date Diagnosed Date Resolved Date 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 05/21/2013 06/13/2017 Dizziness and giddiness 03/02/201306/03 Fever 03/10/2011 06/13/2017 Peripheral neuropathy, idiopathic 01/18/2011 06/13/2017 Anemia, unspecified 03/27/2008 08/20/20 13 documented as of this encounter (statuses as of 08/19/2023) [facility] History of Past illness Narrative* Problem Noted Date Diagnosed Date Resolved Date 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 05/21/2013 06/13/2017 Dizziness and giddiness 03/02/201306/03 Fever 03/10/2011 06/13/2017 Peripheral neuropathy, idiopathic 01/18/2011 06/13/2017 Anemia, unspecified 03/27/2008 08/20/20 13 documented as of this encounter (statuses as of 08/23/2023) [facility] History of Past illness Narrative* Problem Noted Date Diagnosed Date Resolved Date 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 05/21/2013 06/13/2017 Dizziness and giddiness 03/02/201306/03 Fever 03/10/2011 06/13/2017 Peripheral neuropathy, idiopathic 01/18/2011 06/13/2017 Anemia, unspecified 03/27/2008 08/20/20 13 documented as of this encounter (statuses as of 08/23/2023) [facility] History of Past illness Narrative* Problem Noted Date Diagnosed Date Resolved Date 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 05/21/2013 06/13/2017 Dizziness and giddiness 03/02/201306/03 Shoulder pain 05/11/2012 09/06/2023 Fever 03/10/2011 06/13/2017 Peripheral neuropathy, idiopathic 01/18/2011 06/13/2017 Anemia, unspecified 03/27/2008 08/20/20 13 documented as of this encounter (statuses as of 11/04/2023) [facility] History of Past illness Narrative* Problem Noted Date Diagnosed Date Resolved Date 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 05/21/2013 06/13/2017 Dizziness and giddiness 03/02/201306/03 Shoulder pain 05/11/2012 09/06/2023 Fever 03/10/2011 06/13/2017 Peripheral neuropathy, idiopathic 01/18/2011 06/13/2017 Anemia, unspecified 03/27/2008 08/20/20 13 documented as of this encounter (statuses as of 11/07/2023) [facility] History of Past illness Narrative* Problem Noted Date Diagnosed Date Resolved Date 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 05/21/2013 06/13/2017 Dizziness and giddiness 03/02/201306/03 Shoulder pain 05/11/2012 09/06/2023 Fever 03/10/2011 06/13/2017 Peripheral neuropathy, idiopathic 01/18/2011 06/13/2017 Anemia, unspecified 03/27/2008 08/20/20 13 documented as of this encounter (statuses as of 11/22/2023) [facility] History of Past illness Narrative* Problem Noted Date Diagnosed Date Resolved Date 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 05/21/2013 06/13/2017 Dizziness and giddiness 03/02/201306/03 Shoulder pain 05/11/2012 09/06/2023 Fever 03/10/2011 06/13/2017 Peripheral neuropathy, idiopathic 01/18/2011 06/13/2017 Anemia, unspecified 03/27/2008 08/20/20 13 documented as of this encounter (statuses as of 11/24/2023) [facility] History of Past illness Narrative* Problem Noted Date Diagnosed Date Resolved Date 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 05/21/2013 06/13/2017 Dizziness and giddiness 03/02/201306/03 Shoulder pain 05/11/2012 09/06/2023 Fever 03/10/2011 06/13/2017 Peripheral neuropathy, idiopathic 01/18/2011 06/13/2017 Anemia, unspecified 03/27/2008 08/20/20 13 documented as of this encounter (statuses as of 12/01/2023) [facility] History of Past illness Narrative* Problem Noted Date Diagnosed Date Resolved Date 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 05/21/2013 06/13/2017 Dizziness and giddiness 03/02/201306/03 Shoulder pain 05/11/2012 09/06/2023 Fever 03/10/2011 06/13/2017 Peripheral neuropathy, idiopathic 01/18/2011 06/13/2017 Anemia, unspecified 03/27/2008 08/20/20 13 documented as of this encounter (statuses as of 2023) [facility] History of Past illness Narrative* Problem Noted Date Diagnosed Date Resolved Date 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 05/21/2013 06/13/2017 Dizziness and giddiness 03/02/201306/03 Shoulder pain 05/11/2012 09/06/2023 Fever 03/10/2011 06/13/2017 Peripheral neuropathy, idiopathic 01/18/2011 06/13/2017 Anemia, unspecified 03/27/2008 08/20/20 13 documented as of this encounter (statuses as of 01/11/2024) [facility] History of Past illness Narrative* Problem Noted Date Diagnosed Date Resolved Date 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 05/21/2013 06/13/2017 Dizziness and giddiness 03/02/201306/03 Shoulder pain 05/11/2012 09/06/2023 Fever 03/10/2011 06/13/2017 Peripheral neuropathy, idiopathic 01/18/2011 06/13/2017 Anemia, unspecified 03/27/2008 08/20/20 13 documented as of this encounter (statuses as of 01/20/2024) [facility] History of Past illness Narrative* Problem Noted Date Diagnosed Date Resolved Date 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 05/21/2013 06/13/2017 Dizziness and giddiness 03/02/201306/03 Shoulder pain 05/11/2012 09/06/2023 Fever 03/10/2011 06/13/2017 Peripheral neuropathy, idiopathic 01/18/2011 06/13/2017 Anemia, unspecified 03/27/2008 08/20/20 13 documented as of this encounter (statuses as of 01/20/2024) [facility] History of Past illness Narrative* Problem Noted Date Diagnosed Date Resolved Date 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 05/21/2013 06/13/2017 Dizziness and giddiness 03/02/201306/03 Shoulder pain 05/11/2012 09/06/2023 Anemia 03/10/2011 01/20/2024 Fever 03/10/2011 06/13/2017 Peripheral neuropathy, idiopathic 01/18/2011 06/13/2017 Anemia, unspecified 03/27/2008 08/20/20 13 documented as of this encounter (statuses as of 01/20/2024) [facility] History of Past illness Narrative* Problem Noted Date Diagnosed Date Resolved Date 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 05/21/2013 06/13/2017 Dizziness and giddiness 03/02/201306/03 Shoulder pain 05/11/2012 09/06/2023 Anemia 03/10/2011 01/20/2024 Fever 03/10/2011 06/13/2017 Peripheral neuropathy, idiopathic 01/18/2011 06/13/2017 Anemia, unspecified 03/27/2008 08/20/20 13 documented as of this encounter (statuses as of 01/23/2024) [facility] Diagnosis Essential hypertension- Primary Unspecified essential hypertension 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) [facility] Diagnosis SLE (systemic lupus erythematosus related syndrome) (HCC)- Primary Systemic lupus erythematosus Gammopathy Unspecified disorder of plasma protein metabolism Small fiber neuropathy Unspecified hereditary and idiopathic peripheral neuropathy Medication monitoring encounter Encounter for therapeutic drug monitoring [facility] Diagnosis Small fiber neuropathy Unspecified hereditary and idiopathic peripheral neuropathy [facility] Diagnosis Gammopathy Unspecified disorder of plasma protein metabolism Small fiber neuropathy Unspecified hereditary and idiopathic peripheral neuropathy Monoclonal paraproteinemia [facility] Diagnosis Monoclonal paraproteinemia- Primary Gammopathy Unspecified disorder of plasma protein metabolism Small fiber neuropathy Unspecified hereditary and idiopathic peripheral neuropathy [facility] Diagnosis SLE (systemic lupus erythematosus related syndrome) (HCC)- Primary Systemic lupus erythematosus Small fiber neuropathy Unspecified hereditary and idiopathic peripheral neuropathy Gammopathy Unspecified disorder of plasma protein metabolism Oral lesion Other and unspecified diseases of the oral soft tissues Medication monitoring encounter Encounter for therapeutic drug monitoring [facility] Diagnosis Primary osteoarthritis involving multiple joints [facility]* Diagnosis Cheek mass- Primary Swelling, mass, or lump in head and neck [facility] Polyarthralgia Pain in joint, multiple sites [facility] Diagnosis Elbow pain, right Pain in joint, upper arm [facility] Diagnosis Elbow pain, right- Primary Pain in joint, upper arm [facility]* Diagnosis Obesity, Class III, BMI 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) ([facility])- Primary Morbid obesity Primary osteoarthritis involving multiple joints Major depression, recurrent, chronic ([facility]) Major depressive disorder, recurrent episode, unspecified Diastasis recti Diastasis of muscle [facility] Diagnosis Systemic lupus erythematosus with other organ involvement, unspecified SLE type (HCC) [facility]* Diagnosis Gammopathy- Primary Unspecified disorder of plasma protein metabolism Sore of lip Diseases of lips 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) Multiple myeloma, without mention of having achieved remission [facility] Diagnosis Primary osteoarthritis involving multiple joints [facility] Diagnosis Pain- Primary Generalized pain [facility]* Diagnosis 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) Multiple myeloma, without mention of having achieved remission [facility]* Diagnosis Right elbow pain- Primary Pain in joint, upper arm Localized swelling, mass, or lump of right upper extremity Tendinitis of elbow Other synovitis and tenosynovitis Primary osteoarthritis of right elbow Primary localized osteoarthrosis, upper arm [facility]* Diagnosis Seasonal allergic rhinitis due to pollen Systemic lupus erythematosus with other organ involvement, unspecified SLE type (HCC) Essential hypertension, benign [facility]* Diagnosis MARCELINA (obstructive sleep apnea)- Primary Obstructive sleep apnea (adult) (pediatric) Obesity, Class III, BMI 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) (HCC) Morbid obesity Diastasis recti Diastasis of muscle [facility]* Diagnosis BPH with obstruction/lower urinary tract symptoms- Primary Hypertrophy of prostate with urinary obstruction and other lower urinary tract symptoms (LUTS) [facility] Diagnosis SLE (systemic lupus erythematosus related syndrome) (HCC)- Primary Systemic lupus erythematosus Small fiber neuropathy Unspecified hereditary and idiopathic peripheral neuropathy Cough, unspecified type Medication monitoring encounter Encounter for therapeutic drug monitoring [facility] Diagnosis Interstitial pulmonary disease (HCC)- Primary Postinflammatory pulmonary fibrosis Abnormal chest x-ray Other nonspecific abnormal finding of lung field [facility] noteNo assessment information availableWNewark [facility] Work Phone: Evaluation note* Diagnosis Viral illness- Primary Unspecified viral infection, in conditions classified elsewhere and of unspecified site COVID-19 virus infection SOB (shortness of breath) Shortness of breath Acute cough [facility] Diagnosis MONACO (dyspnea on exertion)- Primary Other dyspnea and respiratory abnormality Post-COVID chronic dyspnea Lupus (HCC) Systemic lupus erythematosus Morbid obesity (HCC) Morbid obesity Gastroesophageal reflux disease, unspecified whether esophagitis present [facility]* Diagnosis Obstructive sleep apnea on CPAP- Primary Obstructive sleep apnea (adult) (pediatric) Essential hypertension, benign MARCELINA (obstructive sleep apnea) Obstructive sleep apnea (adult) (pediatric) [facility]* Diagnosis Post-COVID chronic dyspnea [facility]* Diagnosis Dyspnea and respiratory abnormalities Other dyspnea and respiratory abnormality [facility] Diagnosis Post-COVID chronic dyspnea [facility] Diagnosis Post-COVID chronic dyspnea [facility] Diagnosis MONACO (dyspnea on exertion) Other dyspnea and respiratory abnormality [facility]* Diagnosis COVID-19 virus infection SOB (shortness of breath) Shortness of breath Acute cough [facility] Diagnosis Primary osteoarthritis involving multiple joints [facility] Diagnosis Essential hypertension, benign [facility] Diagnosis Systemic lupus erythematosus with other organ involvement, unspecified SLE type (HCC) Primary osteoarthritis involving multiple joints Essential hypertension, benign [facility] Diagnosis Primary osteoarthritis involving multiple joints- Primary Grade I diastolic dysfunction [facility]* Diagnosis Prediabetes Other abnormal glucose HLD (hyperlipidemia) Other and unspecified hyperlipidemia [facility]* Diagnosis Obstructive sleep apnea on CPAP- Primary Obstructive sleep apnea (adult) (pediatric) Essential hypertension, benign [facility] Diagnosis Arthritis of midfoot- Primary Unspecified arthropathy, ankle and foot Posterior tibial tendon dysfunction (PTTD) of both lower extremities Pes planus of both feet Lupus (HCC) Systemic lupus erythematosus [facility]* Diagnosis Glenohumeral arthritis- Primary Osteoarthrosis, unspecified whether generalized or localized, shoulder region [facility] Diagnosis Glenohumeral arthritis Osteoarthrosis, unspecified whether generalized or localized, shoulder region [facility]* Diagnosis Essential hypertension, benign [facility]* Diagnosis COVID-19- Primary [facility]* Diagnosis SLE (systemic lupus erythematosus related syndrome) (HCC)- Primary Systemic lupus erythematosus Small fiber neuropathy Unspecified hereditary and idiopathic peripheral neuropathy Gammopathy Unspecified disorder of plasma protein metabolism Medication monitoring encounter Encounter for therapeutic drug monitoring [facility] Diagnosis Glenohumeral arthritis Osteoarthrosis, unspecified whether generalized or localized, shoulder region [facility]* Diagnosis Chronic cough- Primary Cough [facility]* Diagnosis Chronic cough- Primary Cough [facility]* Diagnosis Bilateral hand pain- Primary Pain in limb [facility]* Diagnosis Glenohumeral arthritis Osteoarthrosis, unspecified whether generalized or localized, shoulder region [facility]* Diagnosis Bilateral carpal tunnel syndrome- Primary Carpal tunnel syndrome Bilateral hand numbness Disturbance of skin sensation Lupus (HCC) Systemic lupus erythematosus [facility]* Diagnosis Interstitial pulmonary disease (HCC) Postinflammatory pulmonary fibrosis Abnormal chest x-ray Other nonspecific abnormal finding of lung field [facility]* Diagnosis Glenohumeral arthritis Osteoarthrosis, unspecified whether generalized or localized, shoulder region [facility] Diagnosis Disturbance of skin sensation- Primary Bilateral carpal tunnel syndrome Carpal tunnel syndrome [facility]* Diagnosis Paronychia of finger of right hand- Primary [facility]* Diagnosis Essential hypertension, benign [facility]* Diagnosis Seasonal allergic rhinitis due to pollen Systemic lupus erythematosus with other organ involvement, unspecified SLE type ([facility]) [facility]* Diagnosis Glenohumeral arthritis Osteoarthrosis, unspecified whether generalized or localized, shoulder region [facility] Diagnosis Chronic pain syndrome- Primary Systemic lupus erythematosus, unspecified SLE type, unspecified organ involvement status (HCC) Numbness and tingling of foot Disturbance of skin sensation Glenohumeral arthritis Osteoarthrosis, unspecified whether generalized or localized, shoulder region [facility]* Diagnosis Systemic lupus erythematosus with other organ involvement, unspecified SLE type (HCC) [facility]* Diagnosis Carpal tunnel syndrome on left- Primary Carpal tunnel syndrome Carpal tunnel syndrome on left Carpal tunnel syndrome [facility] Diagnosis Pre-op evaluation- Primary Preoperative examination, unspecified Essential hypertension, benign Hyperlipidemia, unspecified hyperlipidemia type Grade I diastolic dysfunction Obstructive sleep apnea on CPAP Obstructive sleep apnea (adult) (pediatric) GERD without esophagitis Esophageal reflux BPH with obstruction/lower urinary tract symptoms Hypertrophy of prostate with urinary obstruction and other lower urinary tract symptoms (LUTS) Systemic lupus erythematosus, unspecified SLE type, unspecified organ involvement status (HCC) Major depression, recurrent, chronic (HCC) Major depressive disorder, recurrent episode, unspecified Prediabetes Other abnormal glucose Morbid obesity with body mass index (BMI) of 40.0 to 44.9 in adult (HCC) Carpal tunnel syndrome on left Carpal tunnel syndrome [facility]* Diagnosis Bilateral carpal tunnel syndrome- Primary Carpal tunnel syndrome [facility]* Diagnosis Systemic lupus erythematosus with other organ involvement, unspecified SLE type (HCC) [facility]* Diagnosis Bilateral carpal tunnel syndrome- Primary Carpal tunnel syndrome [facility]* Diagnosis Bilateral carpal tunnel syndrome- Primary Carpal tunnel syndrome Carpal tunnel syndrome on left Carpal tunnel syndrome [facility]* Diagnosis Bilateral carpal tunnel syndrome- Primary Carpal tunnel syndrome [facility] Diagnosis Monoclonal paraproteinemia- Primary [facility]* Diagnosis Systemic lupus erythematosus with other organ involvement, unspecified SLE type (HCC)- Primary Systemic lupus erythematosus, unspecified SLE type, unspecified organ involvement status (HCC) 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) Multiple myeloma, without mention of having achieved remission Primary osteoarthritis involving multiple joints Acquired clavicle deformity Acquired musculoskeletal deformity of other specified site Amyloidosis, unspecified type (HCC) Morbid obesity with body mass index (BMI) of 40.0 to 44.9 in adult (HCC) [facility]* Diagnosis Obstructive sleep apnea on CPAP- Primary Obstructive sleep apnea (adult) (pediatric) Essential hypertension, benign Amyloidosis, unspecified type (HCC) Grade I diastolic dysfunction [facility] Diagnosis Acquired clavicle deformity Acquired musculoskeletal deformity of other specified site [facility]* Diagnosis Chronic pain syndrome- Primary Systemic lupus erythematosus, unspecified SLE type, unspecified organ involvement status (HCC) Numbness and tingling of foot Disturbance of skin sensation Glenohumeral arthritis Osteoarthrosis, unspecified whether generalized or localized, shoulder region Anxiety and depression Dysthymic disorder Amyloidosis, unspecified type (HCC) [facility] Monoclonal paraproteinemia [facility]* Diagnosis Organ-limited amyloidosis (HCC) Other amyloidosis [facility] Diagnosis MARCELINA (obstructive sleep apnea)- Primary Obstructive sleep apnea (adult) (pediatric) Obesity, Class III, BMI 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) (HCC) Morbid obesity [facility] Diagnosis Abnormality of plasma protein- Primary Other disorders of plasma protein metabolism Monoclonal paraproteinemia [facility] Diagnosis Abnormality of plasma protein Other disorders of plasma protein metabolism documented in [facility] Bilateral carpal tunnel syndrome- Primary Carpal tunnel syndrome [facility] Diagnosis Glenohumeral arthritis Osteoarthrosis, unspecified whether generalized or localized, shoulder region [facility] Organ-limited amyloidosis (HCC) Other amyloidosis [facility] Diagnosis SOB (shortness of breath)- Primary Shortness of breath [facility] Diagnosis Organ-limited amyloidosis (HCC)- Primary Other amyloidosis [facility] Diagnosis SOB (shortness of breath) Shortness of breath [facility] Diagnosis Shortness of breath- Primary Post-COVID chronic dyspnea Morbid obesity with body mass index (BMI) of 40.0 to 44.9 in adult ([facility]) Obstructive sleep apnea on CPAP Obstructive sleep apnea (adult) (pediatric) GERD without esophagitis Esophageal reflux Systemic lupus erythematosus, unspecified SLE type, unspecified organ involvement status ([facility]) [facility] Diagnosis Chronic pain syndrome- Primary Systemic lupus erythematosus, unspecified SLE type, unspecified organ involvement status ([facility]) Numbness and tingling of foot Disturbance of skin sensation Glenohumeral arthritis Osteoarthrosis, unspecified whether generalized or localized, shoulder region Anxiety and depression Dysthymic disorder Major depression, recurrent, chronic ([facility]) Major depressive disorder, recurrent episode, unspecified Moderate recurrent major depression ([facility]) Major depressive disorder, recurrent episode, moderate Polyneuropathy, unspecified Chronic bilateral low back pain with bilateral sciatica GERD without esophagitis Esophageal reflux Sleep disturbance Sleep disturbance, unspecified [facility] Diagnosis SLE (systemic lupus erythematosus related syndrome) ([facility])- Primary Systemic lupus erythematosus Interstitial pulmonary disease ([facility]) Postinflammatory pulmonary fibrosis Small fiber neuropathy Unspecified hereditary and idiopathic peripheral neuropathy Gammopathy Unspecified disorder of plasma protein metabolism Long-term use of Plaquenil Encounter for long-term (current) use of other medications Medication monitoring encounter Encounter for therapeutic drug monitoring [facility]* Diagnosis Systemic lupus erythematosus with other organ involvement, unspecified SLE type ([facility]) documented in this encounter [facility]* Diagnosis Pre-op evaluation- Primary Preoperative examination, unspecified Essential hypertension, benign Hyperlipidemia, unspecified hyperlipidemia type Grade I diastolic dysfunction Obstructive sleep apnea on CPAP Obstructive sleep apnea (adult) (pediatric) GERD without esophagitis Esophageal reflux BPH with obstruction/lower urinary tract symptoms Hypertrophy of prostate with urinary obstruction and other lower urinary tract symptoms ([facility]) Systemic lupus erythematosus, unspecified SLE type, unspecified organ involvement status ([facility]) Major depression, recurrent, chronic (HCC) Major depressive disorder, recurrent episode, unspecified Prediabetes Other abnormal glucose Morbid obesity with body mass index (BMI) of 40.0 to 44.9 in adult ([facility]) Seasonal allergic rhinitis due to pollen documented in this encounter [facility] note* Diagnosis Pre-op evaluation- Primary Preoperative examination, unspecified Essential hypertension, benign Hyperlipidemia, unspecified hyperlipidemia type Grade I diastolic dysfunction Obstructive sleep apnea on CPAP Obstructive sleep apnea (adult) (pediatric) GERD without esophagitis Esophageal reflux BPH with obstruction/lower urinary tract symptoms Hypertrophy of prostate with urinary obstruction and other lower urinary tract symptoms ([facility]) Systemic lupus erythematosus, unspecified SLE type, unspecified organ involvement status (HCC) Major depression, recurrent, chronic (HCC) Major depressive disorder, recurrent episode, unspecified Prediabetes Other abnormal glucose Morbid obesity with body mass index (BMI) of 40.0 to 44.9 in adult ([facility]) Glenohumeral arthritis Osteoarthrosis, unspecified whether generalized or localized, shoulder region documented in this encounter [facility] note* Diagnosis Pre-op evaluation- Primary Preoperative examination, unspecified Essential hypertension, benign Hyperlipidemia, unspecified hyperlipidemia type Grade I diastolic dysfunction Obstructive sleep apnea on CPAP Obstructive sleep apnea (adult) (pediatric) GERD without esophagitis Esophageal reflux BPH with obstruction/lower urinary tract symptoms Hypertrophy of prostate with urinary obstruction and other lower urinary tract symptoms ([facility]) Systemic lupus erythematosus, unspecified SLE type, unspecified organ involvement status ([facility]) Major depression, recurrent, chronic (HCC) Major depressive disorder, recurrent episode, unspecified Prediabetes Other abnormal glucose Morbid obesity with body mass index (BMI) of 40.0 to 44.9 in adult ([facility]) Chronic bilateral low back pain with bilateral sciatica- Primary Chronic pain syndrome Numbness and tingling of foot Disturbance of skin sensation Polyneuropathy, unspecified Systemic lupus erythematosus, unspecified SLE type, unspecified organ involvement status ([facility]) documented in this encounter [facility] note* Diagnosis Pre-op evaluation- Primary Preoperative examination, unspecified Essential hypertension, benign Hyperlipidemia, unspecified hyperlipidemia type Grade I diastolic dysfunction Obstructive sleep apnea on CPAP Obstructive sleep apnea (adult) (pediatric) GERD without esophagitis Esophageal reflux BPH with obstruction/lower urinary tract symptoms Hypertrophy of prostate with urinary obstruction and other lower urinary tract symptoms ([facility]) Systemic lupus erythematosus, unspecified SLE type, unspecified organ involvement status ([facility]) Major depression, recurrent, chronic (HCC) Major depressive disorder, recurrent episode, unspecified Prediabetes Other abnormal glucose Morbid obesity with body mass index (BMI) of 40.0 to 44.9 in adult ([facility]) MARCELINA (obstructive sleep apnea)- Primary Obstructive sleep apnea (adult) (pediatric) Nasal congestion Other diseases of nasal cavity and sinuses [facility]* Diagnosis Pre-op evaluation- Primary Preoperative examination, unspecified Essential hypertension, benign Hyperlipidemia, unspecified hyperlipidemia type Grade I diastolic dysfunction Obstructive sleep apnea on CPAP Obstructive sleep apnea (adult) (pediatric) GERD without esophagitis Esophageal reflux BPH with obstruction/lower urinary tract symptoms Hypertrophy of prostate with urinary obstruction and other lower urinary tract symptoms ([facility]) Systemic lupus erythematosus, unspecified SLE type, unspecified organ involvement status (HCC) Major depression, recurrent, chronic (HCC) Major depressive disorder, recurrent episode, unspecified Prediabetes Other abnormal glucose Morbid obesity with body mass index (BMI) of 40.0 to 44.9 in adult ([facility]) Chronic bilateral low back pain with bilateral sciatica- Primary documented in this encounter [facility] note* Diagnosis Pre-op evaluation- Primary Preoperative examination, unspecified Essential hypertension, benign Hyperlipidemia, unspecified hyperlipidemia type Grade I diastolic dysfunction Obstructive sleep apnea on CPAP Obstructive sleep apnea (adult) (pediatric) GERD without esophagitis Esophageal reflux BPH with obstruction/lower urinary tract symptoms Hypertrophy of prostate with urinary obstruction and other lower urinary tract symptoms ([facility]) Systemic lupus erythematosus, unspecified SLE type, unspecified organ involvement status (HCC) Major depression, recurrent, chronic (HCC) Major depressive disorder, recurrent episode, unspecified Prediabetes Other abnormal glucose Morbid obesity with body mass index (BMI) of 40.0 to 44.9 in adult ([facility]) Other amyloidosis (HCC) Other amyloidosis MGUS (monoclonal gammopathy of unknown significance) Monoclonal paraproteinemia documented in this encounter [facility] note* Diagnosis Pre-op evaluation- Primary Preoperative examination, unspecified Essential hypertension, benign Hyperlipidemia, unspecified hyperlipidemia type Grade I diastolic dysfunction Obstructive sleep apnea on CPAP Obstructive sleep apnea (adult) (pediatric) GERD without esophagitis Esophageal reflux BPH with obstruction/lower urinary tract symptoms Hypertrophy of prostate with urinary obstruction and other lower urinary tract symptoms ([facility]UTS) Systemic lupus erythematosus, unspecified SLE type, unspecified organ involvement status (HCC) Major depression, recurrent, chronic (HCC) Major depressive disorder, recurrent episode, unspecified Prediabetes Other abnormal glucose Morbid obesity with body mass index (BMI) of 40.0 to 44.9 in adult ([facility]) Seasonal allergic rhinitis due to pollen documented in this encounter [facility] note* Diagnosis Pre-op evaluation- Primary Preoperative examination, unspecified Essential hypertension, benign Hyperlipidemia, unspecified hyperlipidemia type Grade I diastolic dysfunction Obstructive sleep apnea on CPAP Obstructive sleep apnea (adult) (pediatric) GERD without esophagitis Esophageal reflux BPH with obstruction/lower urinary tract symptoms Hypertrophy of prostate with urinary obstruction and other lower urinary tract symptoms ([facility]) Systemic lupus erythematosus, unspecified SLE type, unspecified organ involvement status (HCC) Major depression, recurrent, chronic (HCC) Major depressive disorder, recurrent episode, unspecified Prediabetes Other abnormal glucose Morbid obesity with body mass index (BMI) of 40.0 to 44.9 in adult ([facility]) Smoldering multiple myeloma- Primary Multiple myeloma, 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) Other amyloidosis [facility] Diagnosis Bilateral hand pain Pain in limb Pre-op evaluation- Primary Preoperative examination, unspecified Essential hypertension, benign Hyperlipidemia, unspecified hyperlipidemia type Grade I diastolic dysfunction Obstructive sleep apnea on CPAP Obstructive sleep apnea (adult) (pediatric) GERD without esophagitis Esophageal reflux BPH with obstruction/lower urinary tract symptoms Hypertrophy of prostate with urinary obstruction and other lower urinary tract symptoms ([facility]) Systemic lupus erythematosus, unspecified SLE type, unspecified organ involvement status (HCC) Major depression, recurrent, chronic (HCC) Major depressive disorder, recurrent episode, unspecified Prediabetes Other abnormal glucose Morbid obesity with body mass index (BMI) of 40.0 to 44.9 in adult ([facility]) documented in this encounter [facility] note* Diagnosis Pre-op evaluation- Primary Preoperative examination, unspecified Essential hypertension, benign Hyperlipidemia, unspecified hyperlipidemia type Grade I diastolic dysfunction Obstructive sleep apnea on CPAP Obstructive sleep apnea (adult) (pediatric) GERD without esophagitis Esophageal reflux BPH with obstruction/lower urinary tract symptoms Hypertrophy of prostate with urinary obstruction and other lower urinary tract symptoms ([facility]UTS) Systemic lupus erythematosus, unspecified SLE type, unspecified organ involvement status (HCC) Major depression, recurrent, chronic (HCC) Major depressive disorder, recurrent episode, unspecified Prediabetes Other abnormal glucose Morbid obesity with body mass index (BMI) of 40.0 to 44.9 in adult ([facility]) Amyloidosis, unspecified type (HCC)- Primary Other hyperlipidemia Essential hypertension, benign Obstructive sleep apnea on CPAP Obstructive sleep apnea (adult) (pediatric) Smoldering myeloma Multiple myeloma, without mention of having achieved remission [facility]* Diagnosis Arthritis of midfoot Unspecified arthropathy, ankle and foot Posterior tibial tendon dysfunction (PTTD) of both lower extremities Pes planus of both feet Pre-op evaluation- Primary Preoperative examination, unspecified Essential hypertension, benign Hyperlipidemia, unspecified hyperlipidemia type Grade I diastolic dysfunction Obstructive sleep apnea on CPAP Obstructive sleep apnea (adult) (pediatric) GERD without esophagitis Esophageal reflux BPH with obstruction/lower urinary tract symptoms Hypertrophy of prostate with urinary obstruction and other lower urinary tract symptoms ([facility]) Systemic lupus erythematosus, unspecified SLE type, unspecified organ involvement status (HCC) Major depression, recurrent, chronic (HCC) Major depressive disorder, recurrent episode, unspecified Prediabetes Other abnormal glucose Morbid obesity with body mass index (BMI) of 40.0 to 44.9 in adult ([facility]) documented [facility]* Diagnosis Pre-op evaluation- Primary Preoperative examination, unspecified Essential hypertension, benign Hyperlipidemia, unspecified hyperlipidemia type Grade I diastolic dysfunction Obstructive sleep apnea on CPAP Obstructive sleep apnea (adult) (pediatric) GERD without esophagitis Esophageal reflux BPH with obstruction/lower urinary tract symptoms Hypertrophy of prostate with urinary obstruction and other lower urinary tract symptoms ([facility]) Systemic lupus erythematosus, unspecified SLE type, unspecified organ involvement status (HCC) Major depression, recurrent, chronic (HCC) Major depressive disorder, recurrent episode, unspecified Prediabetes Other abnormal glucose Morbid obesity with body mass index (BMI) of 40.0 to 44.9 in adult ([facility]) Chronic bilateral low back pain with bilateral sciatica- Primary Chronic pain syndrome Numbness and tingling of foot Disturbance of skin sensation [facility]* Diagnosis Pain Generalized pain Pre-op evaluation- Primary Preoperative examination, unspecified Essential hypertension, benign Hyperlipidemia, unspecified hyperlipidemia type Grade I diastolic dysfunction Obstructive sleep apnea on CPAP Obstructive sleep apnea (adult) (pediatric) GERD without esophagitis Esophageal reflux BPH with obstruction/lower urinary tract symptoms Hypertrophy of prostate with urinary obstruction and other lower urinary tract symptoms ([facility]S) Systemic lupus erythematosus, unspecified SLE type, unspecified organ involvement status (HCC) Major depression, recurrent, chronic (HCC) Major depressive disorder, recurrent episode, unspecified Prediabetes Other abnormal glucose Morbid obesity with body mass index (BMI) of 40.0 to 44.9 in adult ([facility]) documented [facility]* Diagnosis Pre-op evaluation- Primary Preoperative examination, unspecified Essential hypertension, benign Hyperlipidemia, unspecified hyperlipidemia type Grade I diastolic dysfunction Obstructive sleep apnea on CPAP Obstructive sleep apnea (adult) (pediatric) GERD without esophagitis Esophageal reflux BPH with obstruction/lower urinary tract symptoms Hypertrophy of prostate with urinary obstruction and other lower urinary tract symptoms (LUTS) Systemic lupus erythematosus, unspecified SLE type, unspecified organ involvement status ([facility]) Major depression, recurrent, chronic ([facility]) Major depressive disorder, recurrent episode, unspecified Prediabetes Other abnormal glucose Morbid obesity with body mass index (BMI) of 40.0 to 44.9 in adult ([facility]) Chronic bilateral low back pain with bilateral sciatica- Primary documented in this encounter [facility] note* Diagnosis Pre-op evaluation- Primary Preoperative examination, unspecified Essential hypertension, benign Hyperlipidemia, unspecified hyperlipidemia type Grade I diastolic dysfunction Obstructive sleep apnea on CPAP Obstructive sleep apnea (adult) (pediatric) GERD without esophagitis Esophageal reflux BPH with obstruction/lower urinary tract symptoms Hypertrophy of prostate with urinary obstruction and other lower urinary tract symptoms (LUTS) Systemic lupus erythematosus, unspecified SLE type, unspecified organ involvement status ([facility]) Major depression, recurrent, chronic ([facility]) Major depressive disorder, recurrent episode, unspecified Prediabetes Other abnormal glucose Morbid obesity with body mass index (BMI) of 40.0 to 44.9 in adult ([facility]) Amyloidosis, unspecified type ([facility])- Primary Primary osteoarthritis involving multiple joints documented in this encounter [facility] note* Diagnosis Pre-op evaluation- Primary Preoperative examination, unspecified Essential hypertension, benign Hyperlipidemia, unspecified hyperlipidemia type Grade I diastolic dysfunction Obstructive sleep apnea on CPAP Obstructive sleep apnea (adult) (pediatric) GERD without esophagitis Esophageal reflux BPH with obstruction/lower urinary tract symptoms Hypertrophy of prostate with urinary obstruction and other lower urinary tract symptoms (LUTS) Systemic lupus erythematosus, unspecified SLE type, unspecified organ involvement status ([facility]) Major depression, recurrent, chronic ([facility]) Major depressive disorder, recurrent episode, unspecified Prediabetes Other abnormal glucose Morbid obesity with body mass index (BMI) of 40.0 to 44.9 in adult ([facility]) Prediabetes- Primary Other abnormal glucose Severe obesity (BMI >= 40) ([facility]) Morbid obesity BMI 40.0-44.9, adult ([facility]) Body Mass Index 40.0-44.9, adult Essential hypertension, benign Mixed hyperlipidemia Grade I diastolic dysfunction Obstructive sleep apnea on CPAP Obstructive sleep apnea (adult) (pediatric) GERD without esophagitis Esophageal reflux Smoldering multiple myeloma Multiple myeloma, 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) Other amyloidosis Systemic lupus erythematosus, unspecified SLE type, unspecified organ involvement status (HCC) Anxiety Anxiety state, unspecified Moderate recurrent major depression (HCC) Major depressive disorder, recurrent episode, moderate Medication management Encounter for long-term (current) use of other medications Dietary counseling Dietary surveillance and counseling Exercise counseling [facility]* Diagnosis Pre-op evaluation- Primary Preoperative examination, unspecified Essential hypertension, benign Hyperlipidemia, unspecified hyperlipidemia type Grade I diastolic dysfunction Obstructive sleep apnea on CPAP Obstructive sleep apnea (adult) (pediatric) GERD without esophagitis Esophageal reflux BPH with obstruction/lower urinary tract symptoms Hypertrophy of prostate with urinary obstruction and other lower urinary tract symptoms (LUTS) Systemic lupus erythematosus, unspecified SLE type, unspecified organ involvement status (HCC) Major depression, recurrent, chronic (HCC) Major depressive disorder, recurrent episode, unspecified Prediabetes Other abnormal glucose Morbid obesity with body mass index (BMI) of 40.0 to 44.9 in adult ([facility]) Shortness of breath Post-COVID chronic dyspnea documented in this encounter [facility] note* Diagnosis Pre-op evaluation- Primary Preoperative examination, unspecified Essential hypertension, benign Hyperlipidemia, unspecified hyperlipidemia type Grade I diastolic dysfunction Obstructive sleep apnea on CPAP Obstructive sleep apnea (adult) (pediatric) GERD without esophagitis Esophageal reflux BPH with obstruction/lower urinary tract symptoms Hypertrophy of prostate with urinary obstruction and other lower urinary tract symptoms (LUTS) Systemic lupus erythematosus, unspecified SLE type, unspecified organ involvement status (HCC) Major depression, recurrent, chronic (HCC) Major depressive disorder, recurrent episode, unspecified Prediabetes Other abnormal glucose Morbid obesity with body mass index (BMI) of 40.0 to 44.9 in adult ([facility]) Shortness of breath Post-COVID chronic dyspnea [facility]* Diagnosis Pre-op evaluation- Primary Preoperative examination, unspecified Essential hypertension, benign Hyperlipidemia, unspecified hyperlipidemia type Grade I diastolic dysfunction Obstructive sleep apnea on CPAP Obstructive sleep apnea (adult) (pediatric) GERD without esophagitis Esophageal reflux BPH with obstruction/lower urinary tract symptoms Hypertrophy of prostate with urinary obstruction and other lower urinary tract symptoms (LUTS) Systemic lupus erythematosus, unspecified SLE type, unspecified organ involvement status (HCC) Major depression, recurrent, chronic (HCC) Major depressive disorder, recurrent episode, unspecified Prediabetes Other abnormal glucose Morbid obesity with body mass index (BMI) of 40.0 to 44.9 in adult ([facility]) Shortness of breath- Primary Post-COVID chronic dyspnea Morbid obesity with body mass index (BMI) of 40.0 to 44.9 in adult ([facility]) Obstructive sleep apnea on CPAP Obstructive sleep apnea (adult) (pediatric) GERD without esophagitis Esophageal reflux Systemic lupus erythematosus, unspecified SLE type, unspecified organ involvement status ([facility]) Smoldering myeloma Multiple myeloma, without mention of having achieved remission [facility]- Primary Preoperative examination, unspecified Essential hypertension, benign Hyperlipidemia, unspecified hyperlipidemia type Grade I diastolic dysfunction Obstructive sleep apnea on CPAP Obstructive sleep apnea (adult) (pediatric) GERD without esophagitis Esophageal reflux BPH with obstruction/lower urinary tract symptoms Hypertrophy of prostate with urinary obstruction and other lower urinary tract symptoms (LUTS) Systemic lupus erythematosus, unspecified SLE type, unspecified organ involvement status ([facility]) Major depression, recurrent, chronic (HCC) Major depressive disorder, recurrent episode, unspecified Prediabetes Other abnormal glucose Morbid obesity with body mass index (BMI) of 40.0 to 44.9 in adult ([facility]) Chronic bilateral low back pain with bilateral sciatica- Primary Chronic pain syndrome Numbness and tingling of foot Disturbance of skin sensation [facility] [facility]* Diagnosis Pre-op evaluation- Primary Preoperative examination, unspecified Essential hypertension, benign Hyperlipidemia, unspecified hyperlipidemia type Grade I diastolic dysfunction Obstructive sleep apnea on CPAP Obstructive sleep apnea (adult) (pediatric) GERD without esophagitis Esophageal reflux BPH with obstruction/lower urinary tract symptoms Hypertrophy of prostate with urinary obstruction and other lower urinary tract symptoms (LUTS) Systemic lupus erythematosus, unspecified SLE type, unspecified organ involvement status ([facility]) Major depression, recurrent, chronic (HCC) Major depressive disorder, recurrent episode, unspecified Prediabetes Other abnormal glucose Morbid obesity with body mass index (BMI) of 40.0 to 44.9 in adult ([facility]) Severe obesity (BMI >= 40) ([facility])- Primary Morbid obesity Prediabetes Other abnormal glucose [facility] Diagnosis Pre-op evaluation- Primary Preoperative examination, unspecified Essential hypertension, benign Hyperlipidemia, unspecified hyperlipidemia type Grade I diastolic dysfunction Obstructive sleep apnea on CPAP Obstructive sleep apnea (adult) (pediatric) GERD without esophagitis Esophageal reflux BPH with obstruction/lower urinary tract symptoms Hypertrophy of prostate with urinary obstruction and other lower urinary tract symptoms (LUTS) Systemic lupus erythematosus, unspecified SLE type, unspecified organ involvement status (HCC) Major depression, recurrent, chronic (HCC) Major depressive disorder, recurrent episode, unspecified Prediabetes Other abnormal glucose Morbid obesity with body mass index (BMI) of 40.0 to 44.9 in adult ([facility]) Chronic bilateral low back pain with bilateral sciatica- Primary Chronic pain syndrome Numbness and tingling of foot Disturbance of skin sensation [facility] Diagnosis Pre-op evaluation- Primary Preoperative examination, unspecified Essential hypertension, benign Hyperlipidemia, unspecified hyperlipidemia type Grade I diastolic dysfunction Obstructive sleep apnea on CPAP Obstructive sleep apnea (adult) (pediatric) GERD without esophagitis Esophageal reflux BPH with obstruction/lower urinary tract symptoms Hypertrophy of prostate with urinary obstruction and other lower urinary tract symptoms (LUTS) Systemic lupus erythematosus, unspecified SLE type, unspecified organ involvement status (HCC) Major depression, recurrent, chronic (HCC) Major depressive disorder, recurrent episode, unspecified Prediabetes Other abnormal glucose Morbid obesity with body mass index (BMI) of 40.0 to 44.9 in adult ([facility]) Glenohumeral arthritis Osteoarthrosis, unspecified whether generalized or localized, shoulder region [facility] Diagnosis Pre-op evaluation- Primary Preoperative examination, unspecified Essential hypertension, benign Hyperlipidemia, unspecified hyperlipidemia type Grade I diastolic dysfunction Obstructive sleep apnea on CPAP Obstructive sleep apnea (adult) (pediatric) GERD without esophagitis Esophageal reflux BPH with obstruction/lower urinary tract symptoms Hypertrophy of prostate with urinary obstruction and other lower urinary tract symptoms (LUTS) Systemic lupus erythematosus, unspecified SLE type, unspecified organ involvement status (HCC) Major depression, recurrent, chronic (HCC) Major depressive disorder, recurrent episode, unspecified Prediabetes Other abnormal glucose Morbid obesity with body mass index (BMI) of 40.0 to 44.9 in adult ([facility]) Chronic bilateral low back pain with bilateral sciatica History of lumbar fusion [facility] Diagnosis Pre-op evaluation- Primary Preoperative examination, unspecified Essential hypertension, benign Hyperlipidemia, unspecified hyperlipidemia type Grade I diastolic dysfunction Obstructive sleep apnea on CPAP Obstructive sleep apnea (adult) (pediatric) GERD without esophagitis Esophageal reflux BPH with obstruction/lower urinary tract symptoms Hypertrophy of prostate with urinary obstruction and other lower urinary tract symptoms (LUTS) Systemic lupus erythematosus, unspecified SLE type, unspecified organ involvement status ([facility]) Major depression, recurrent, chronic (HCC) Major depressive disorder, recurrent episode, unspecified Prediabetes Other abnormal glucose Morbid obesity with body mass index (BMI) of 40.0 to 44.9 in adult ([facility]) Amyloidosis, unspecified type ([facility])- Primary Systemic lupus erythematosus with other organ involvement, unspecified SLE type ([facility]) Glenohumeral arthritis Osteoarthrosis, unspecified whether generalized or localized, shoulder region Primary osteoarthritis involving multiple joints Systemic lupus erythematosus, unspecified SLE type, unspecified organ involvement status ([facility]) Multiple myeloma not having achieved remission ([facility]) Multiple myeloma, without mention of having achieved remission Morbid obesity with body mass index (BMI) of 40.0 to 44.9 in adult ([facility]) Medical marijuana use Encounter for long-term (current) use of other medications [facility] Diagnosis Pre-op evaluation- Primary Preoperative examination, unspecified Essential hypertension, benign Hyperlipidemia, unspecified hyperlipidemia type Grade I diastolic dysfunction Obstructive sleep apnea on CPAP Obstructive sleep apnea (adult) (pediatric) GERD without esophagitis Esophageal reflux BPH with obstruction/lower urinary tract symptoms Hypertrophy of prostate with urinary obstruction and other lower urinary tract symptoms (LUTS) Systemic lupus erythematosus, unspecified SLE type, unspecified organ involvement status ([facility]) Major depression, recurrent, chronic ([facility]) Major depressive disorder, recurrent episode, unspecified Prediabetes Other abnormal glucose Morbid obesity with body mass index (BMI) of 40.0 to 44.9 in adult ([facility]) SLE (systemic lupus erythematosus related syndrome) ([facility])- Primary Systemic lupus erythematosus Small fiber neuropathy Unspecified hereditary and idiopathic peripheral neuropathy Gammopathy Unspecified disorder of plasma protein metabolism Long-term use of Plaquenil Encounter for long-term (current) use of other medications [facility] Diagnosis Pre-op evaluation- Primary Preoperative examination, unspecified Essential hypertension, benign Hyperlipidemia, unspecified hyperlipidemia type Grade I diastolic dysfunction Obstructive sleep apnea on CPAP Obstructive sleep apnea (adult) (pediatric) GERD without esophagitis Esophageal reflux BPH with obstruction/lower urinary tract symptoms Hypertrophy of prostate with urinary obstruction and other lower urinary tract symptoms (LUTS) Systemic lupus erythematosus, unspecified SLE type, unspecified organ involvement status ([facility]) Major depression, recurrent, chronic (HCC) Major depressive disorder, recurrent episode, unspecified Prediabetes Other abnormal glucose Morbid obesity with body mass index (BMI) of 40.0 to 44.9 in adult ([facility]) Chronic bilateral low back pain with bilateral sciatica- Primary History of lumbar fusion Lumbar spondylosis Lumbosacral spondylosis without myelopathy Chronic bilateral low back pain with bilateral sciatica History of lumbar fusion documented in this encounter [facility] note* Diagnosis Pre-op evaluation- Primary Preoperative examination, unspecified Essential hypertension, benign Hyperlipidemia, unspecified hyperlipidemia type Grade I diastolic dysfunction Obstructive sleep apnea on CPAP Obstructive sleep apnea (adult) (pediatric) GERD without esophagitis Esophageal reflux BPH with obstruction/lower urinary tract symptoms Hypertrophy of prostate with urinary obstruction and other lower urinary tract symptoms (LUTS) Systemic lupus erythematosus, unspecified SLE type, unspecified organ involvement status ([facility]) Major depression, recurrent, chronic ([facility]) Major depressive disorder, recurrent episode, unspecified Prediabetes Other abnormal glucose Morbid obesity with body mass index (BMI) of 40.0 to 44.9 in adult ([facility]) Chronic bilateral low back pain with bilateral sciatica- Primary Chronic pain syndrome Polyneuropathy, unspecified Systemic lupus erythematosus, unspecified SLE type, unspecified organ involvement status ([facility]) Severe obesity (BMI >= 40) ([facility]) Morbid obesity documented in this encounter [facility] note* Diagnosis Pre-op evaluation- Primary Preoperative examination, unspecified Essential hypertension, benign Hyperlipidemia, unspecified hyperlipidemia type Grade I diastolic dysfunction Obstructive sleep apnea on CPAP Obstructive sleep apnea (adult) (pediatric) GERD without esophagitis Esophageal reflux BPH with obstruction/lower urinary tract symptoms Hypertrophy of prostate with urinary obstruction and other lower urinary tract symptoms (LUTS) Systemic lupus erythematosus, unspecified SLE type, unspecified organ involvement status ([facility]) Major depression, recurrent, chronic ([facility]) Major depressive disorder, recurrent episode, unspecified Prediabetes Other abnormal glucose Morbid obesity with body mass index (BMI) of 40.0 to 44.9 in adult ([facility]) Severe obesity (BMI >= 40) ([facility]) Morbid obesity documented in this encounter [facility] note* Diagnosis Pre-op evaluation- Primary Preoperative examination, unspecified Essential hypertension, benign Hyperlipidemia, unspecified hyperlipidemia type Grade I diastolic dysfunction Obstructive sleep apnea on CPAP Obstructive sleep apnea (adult) (pediatric) GERD without esophagitis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 PA/LAT/OBL BILATERAL RADEX HAND MINIMUM 3 VIEWS Aruna Menard PA-C [address] [place] [address] [place] [address] Referral ID Status Reason Start Date Expiration Date V isits Requested Visits Authorized [id number] Closed Auto-Generate d Referral 07/20/2023 08/18/2024 1 1 [facility] for visit Narrative* Diagnostic Procedure Only (Routine) - Closed Specialty Diagnoses / Procedures Referred By Contac t Referred To Contact XR IMAGING Diagnoses Arthritis of midfoot Posterior tibial tendon dysfunction (PTTD) of both lower extremities Pes planus of both feet Procedures XR FOOT GENERAL 3V AP/LAT/OBL BILATERAL RADEX FOOT COMPLETE MINIMUM 3 VIEWS Hild, Viri, DPM [address] [place] [address] [place] [address] Referral ID Status Reason Start Date Expiration Date V isits Requested Visits Authorized [id number] Closed Auto-Generate d Referral 02/02/2023 03/03/2024 1 1 [facility] for visit Narrative* Diagnostic Procedure Only (Routine) - Closed Specialty Diagnoses / Procedures Referred By Contac t Referred To Contact XR IMAGING Diagnoses Chronic bilateral low back pain with bilateral sciatica History of lumbar fusion Procedures XR LUMBAR MOTION 4V AP/LAT/ FLEX/EXT RADEX SPINE LUMBOSACRAL MINIMUM 4 VIEWS Bianca Denise, DO [address] [place] [id number] Xr Imaging [facility] Referral ID Status Reason Start Date Expiration Date V isits Requested Visits Authorized [id number] Closed Auto-Generate d Referral 08/03/2024 09/02/2025 1 1 [facility] for visit Narrative* Consult, Test, Treat (Routine) - Closed Specialty Diagnoses / Procedures Referred By Contac t Referred To Contact Cardiology Diagnoses Syncope, unspecified syncope type Procedures CONSULT TO CARDIOLOGY OFFICE/OUTPATIENT [facility] 60 MINUTES Edinson Zarate MD [address] [facility] [place] [address] Phone: tel: fax: Referral ID Status Reason Start Date Expiration Date V isits Requested Visits Authorized [id number] Closed PCP Requested Referral 02/11/2025 02/11/2026 1 1 [facility] Summary Purpose Family History No Family History Records Found Relationship Condition Age at Onset Recorded Date/T damaris Unknown Family History?No pe rtinent history Unknown June 25, 2014 9:42pm Family History?No pe rtinent history Unknown June 25, 2014 9:42pm Advance Directives No Advanced Directives Records FoundDocuments on File Type Date Recorded Patient Patient Care Provider Expl anation Advance Directive(s) 11/11/2020 2:46 PM Advance Directive(s) 05/08/2020 10:00 AM Advance Directive(s) 04/29/2020 11:46 AM Advance Directive(s) 09/01/2018 5:58 AM Advance Directive(s) 04/29/2017 10:56 AM Documents on File Type Date Recorded Patient Patient Care Provider Expl anation Advance Directive(s) 11/11/2020 2:46 PM Advance Directive(s) 05/08/2020 10:00 AM Advance Directive(s) 04/29/2020 11:46 AM Advance Directive(s) 09/01/2018 5:58 AM Advance Directive(s) 04/29/2017 10:56 AM Documents on File Type Date Recorded Patient Patient Care Provider Expl anation Advance Directive(s) 11/11/2020 2:46 PM Documents on File Type Date Recorded Patient Patient Care Provider Expl anation Advance Directive(s) 11/11/2020 2:46 PM Advance Directive Response Recorded Date/ Time Advance Directives Yes June 10:54pm Living Will Yes August 30 12:46pm Power of Cellular Equipment Repairer Yes August 30, 2022 12:46pm Name of Medical Power of Cellular Equipment Repairer Jordyn De La Vega August 30, 2022 12:46pm Reason for Referral Specialty Diagnoses / Procedures Referred By Musa [place] Referred To Contact Diagnoses Obesity, Class III, BMI 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) (HCC) Diastasis recti Procedures CONSULT [facility] OFFICE/OUTPATIENT NEW HIGH MDM 60-74 MINUTES Edinson Zarate MD [address] [facility] [place] [address] Referral ID Status Reason Start Date Expiration Date Visits Requested Visits Authorized [id number] Pending Review PCP Requested Referral 05/20/2022 05/20/2023 1 1 Specialty Diagnoses / Procedures Referred By Musa washington Referred To Contact CT IMAGING Diagnoses 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) Procedures CT WHOLE BODY SKULL TO KNEE WO IVCON UNLISTED COMPUTED TOMOGRAPHY PROCEDURE Philippe Dawson APRN.DISTRICT RESOURCE OFFICER [id number] Imaging Referral ID Status Reason Start Date Expiration Date Visits Requested Visits Authorized [id number] Pending Review Auto-Generat ed Referral 06/04/2022 06/27/2023 1 1 Referral ID Status Reason Start Date Expiration Date V isits Requested Visits Authorized [id number] Closed Auto-Generate d Referral 06/04/2022 06/27/2023 1 1 Specialty Diagnoses / Procedures Referred By Contac t Referred To Contact [facility] Diagnoses Right elbow pain Localized swelling, mass, or lump of right upper extremity Tendinitis of elbow Procedures CONSULT TO PHYSICAL THERAPY PHYSICAL THERAPY EVALUATION HIGH COMPLEX 45 MINS Janny Hill PA-C [address] [place] [address] [facility] [place] [address] [place] [address] Referral ID Status Reason Start Date Expiration Date Visits Requested Visits Authorized [id number] Pending Review Auto-Generat ed Referral 2 07/12/2023 1 1 Specialty Diagnoses / Procedures Referred By Contac t Referred To Contact CT IMAGING Diagnoses Right elbow pain Localized swelling, mass, or lump of right upper extremity Procedures CT ELBOW W IVCON RT CT UPPER EXTREMITY W/CONTRAST MATERIAL Janny Hill PA-C [address] [place] [address] Ct Imaging Referral ID Status Reason Start Date Expiration Date Visits Requested Visits Authorized [id number] Authorized Auto-Generat ed Referral 08/11/2023 1 1 Specialty Diagnoses / Procedures Referred By Contac t Referred To Contact Diagnoses MARCELINA (obstructive sleep apnea) Procedures CONSULT TO SLEEP MEDICINE - ADULT OFFICE/OUTPATIENT [facility] MDM 60-74 MINUTES Jacqueline Larson, DEICER REPAIRER PNEUMATIC.DISTRICT RESOURCE OFFICER [address] [address] Referral ID Status Reason Start Date Expiration Date Visits Requested Visits Authorized [id number] Pending Review PCP Requested Referral 2 07/23/2023 1 1 Specialty Diagnoses / Procedures Referred By Contac t Referred To Contact CT IMAGING Diagnoses Interstitial pulmonary disease (HCC) Abnormal chest x-ray Procedures CT CHEST WO IVCON DIAGNOSTIC COMPUTED TOMOGRAPHY THORAX W/O Pat Andrews MD [address] [place] [address] Ct Imaging Referral ID Status Reason Start Date Expiration Date Visits Requested Visits Authorized [id number] Pending Review Auto-Generat ed Referral 08/07/2022 09/06/2023 1 1 Specialty Diagnoses / Procedures Referred By Contac t Referred To Contact CT IMAGING Diagnoses Interstitial pulmonary disease (HCC) Abnormal chest x-ray Procedures CT CHEST WO IVCON DIAGNOSTIC COMPUTED TOMOGRAPHY THORAX W/O Pat Andrews MD [address] [place] [address] Ct Imaging [place] [address] Referral ID Status Reason Start Date Expiration Date V isits Requested Visits Authorized [id number] Closed Auto-Generate d Referral 08/07/2022 02/06/2023 1 1 Specialty Diagnoses / Procedures Referred By Contac t Referred To Contact Spine [place] Diagnoses Chronic pain syndrome Systemic lupus erythematosus, unspecified SLE type, unspecified organ involvement status (HCC) Numbness and tingling of foot Procedures CONSULT TO [facility]) OFFICE/OUTPATIENT [facility] 60 MINUTES Edinson Zarate MD [address] [facility] [place] [address] Referral ID Status Reason Start Date Expiration Date Visits Requested Visits Authorized [id number] Pending Review PCP Requested Referral 11/24/2023 11/23/2024 1 1 Specialty Diagnoses / Procedures Referred By Contac t Referred To Contact Diagnoses Chronic pain syndrome Systemic lupus erythematosus, unspecified SLE type, unspecified organ involvement status (HCC) Numbness and tingling of foot Glenohumeral arthritis Anxiety and depression Procedures CONSULT TO WELLNESS PHYSICIAN OFFICE/OUTPATIENT [facility] 60 MINUTES Jerry Gudino PA-C [address] [place] [address] Referral ID Status Reason Start Date Expiration Date Visits Requested Visits Authorized [id number] Authorized PCP Requested Referral 02/24/2024 02/23/2025 1 1 Specialty Diagnoses / Procedures Referred By Contac t Referred To Contact [facility] [place] Diagnoses Chronic pain syndrome Systemic lupus erythematosus, unspecified SLE type, unspecified organ involvement status (HCC) Numbness and tingling of foot Glenohumeral arthritis Anxiety and depression Procedures CON[facility]ULT TO [facility] ([facility]RONIC PAIN) OFFICE/OUTPATIENT [facility] 60 MINUTES Jerry Gudino PA-C [address] [place] [address] Referral ID Status Reason Start Date Expiration Date Visits Requested Visits Authorized [id number] Pending Review PCP Requested Referral 02/24/2024 02/23/2025 1 1 Specialty Diagnoses / Procedures Referred By Contac t Referred To Contact Diagnoses MARCELINA (obstructive sleep apnea) Procedures PROVIDER ORDERED FOLLOW UP OFFICE/OUTPATIENT [facility] 60 MINUTES Shavon Dawkins APRN.DISTRICT RESOURCE OFFICER [address] [place] [address] Referral ID Status Reason Start Date Expiration Date Visits Requested Visits Authorized [id number] Authorized PCP Requested Referral 06/05/2024 03/05/2025 1 1 Specialty Diagnoses / Procedures Referred By Contac t Referred To Contact Diagnoses Glenohumeral arthritis Cabrera Carver MD [address] [place] [address] Referral ID Status Reason Start Date Expiration Date V isits Requested Visits Authorized [id number] Pending Review 1 1 Specialty Diagnoses / Procedures Referred By Contac t Referred To Contact Diagnoses Chronic pain syndrome Systemic lupus erythematosus, unspecified SLE type, unspecified organ involvement status (HCC) Numbness and tingling of foot Anxiety and depression Polyneuropathy, unspecified Chronic bilateral low back pain with bilateral sciatica Procedures CONSULT FOR ACUPUNCTURE ACUPUNCTURE 1/> NDLS W/ELEC STIMJ 1ST 15 MIN ACUP 1/> NDLS W/ELEC STIMJ EA 15 MIN W/RE-INSJ Katelyn Fernandez PA-C [address] [place] [address] Referral ID Status Reason Start Date Expiration Date Visits Requested Visits Authorized [id number] Pending Review PCP Requested Referral 04/23/2024 07/22/2024 1 1 Specialty Diagnoses / Procedures Referred By Contac t Referred To Contact Ophthalmology Diagnoses Long-term use of Plaquenil Procedures CONSULT TO OPHTHALMOLOGY OFFICE/OUTPATIENT [facility] 60 MINUTES Pat Seo MD [address] [place] [address] Referral ID Status Reason Start Date Expiration Date Visits Requested Visits Authorized [id number] Authorized PCP Requested Referral 04/03/2024 04/03/2025 1 1 Specialty Diagnoses / Procedures Referred By Contac t Referred To Contact Diagnoses Systemic lupus erythematosus with other organ involvement, unspecified SLE type ([facility]) Edinson Zarate MD [address] [place] [address] Referral ID Status Reason Start Date Expiration Date Visits Re quested Visits Authorized [id number] Closed 1 1 Specialty Diagnoses / Procedures Referred By Contac t Referred To Contact [facility] [place] Diagnoses Chronic bilateral low back pain with bilateral sciatica Procedures CONSULT TO [facility] OFFICE/OUTPATIENT [facility] 60 MINUTES Anurag Mejia MD [address] [place] [address] Referral ID Status Reason Start Date Expiration Date Visits Requested Visits Authorized [id number] Authorized PCP Requested Referral 06/28/2024 06/28/2025 1 1 Specialty Diagnoses / Procedures Referred By Contac t Referred To Contact Diagnoses Severe obesity (BMI >= 40) ([facility]) Procedures ENDOCRINOLOGY DIETITIAN VISIT (MNT) MEDICAL NUTRITION ASSMT&IVNTJ INDIV EACH 15 [facility] MEDICAL NUTRITION ASSMT&IVNTJ INDIV EACH 15 [facility] MEDICAL NUTRITION ASSMT&IVNTJ INDIV EACH 15 [facility] MEDICAL NUTRITION ASSMT&IVNTJ INDIV EACH 15 [place] Nnamdi Mejia, DEICER REPAIRER PNEUMATIC.DISTRICT RESOURCE OFFICER [address] [place] [address] Referral ID Status Reason Start Date Expiration Date Visits Requested Visits Authorized [id number] Authorized PCP Requested Referral 06/28/2024 06/28/2025 1 1 Specialty Diagnoses / Procedures Referred By Contac t Referred To Contact [facility] Diagnoses Chronic bilateral low back pain with bilateral sciatica History of lumbar fusion Procedures CONSULT TO PHYSICAL THERAPY PHYSICAL THERAPY EVALUATION HIGH COMPLEX 45 MINS CathiepapoBianca PatDO [address] [place] [address] [facility] [place] [address] [place] [id number] Referral ID Status Reason Start Date Expiration Date Visits Requested Visits Authorized [id number] Authorized Auto-Generat ed Referral 10/03/2023 10/02/2024 99 99 Specialty Diagnoses / Procedures Referred By Thiernoac t Referred To Contact XR IMAGING Diagnoses Chronic bilateral low back pain with bilateral sciatica History of lumbar fusion Procedures XR LUMBAR MOTION 4V AP/LAT/ FLEX/EXT RADEX SPINE LUMBOSACRAL MINIMUM 4 VIEWS CathiepapoBianca, DO [address] [place] [address] [facility] [place] [address] Referral ID Status Reason Start Date Expiration Date V isits Requested Visits Authorized [id number] Closed Auto-Generate d Referral 08/03/2024 09/02/2025 1 1 Chief Complaint and Reason for Visit Chief Complaint SOB Additional Source Comments (unrecognized sect ion and content) No Status Records FoundNo Status Records FoundNo Status Records FoundNo Status Records FoundNo Status Records FoundNo Status Records Found INFORMATION SOURCE (unrecogn ized section and content) DATE CREATED AUTHOR 03/29/2018 [facility] DATE CREATED AUTHOR AUTHOR'S ORGANIZ ATION 09/09/2021 [facility] DATE CREATED AUTHOR AUTHOR'S ORGANIZ ATION 07/06/2022 [facility] nt DATE CREATED AUTHOR AUTHOR'S ORGANIZ ATION 09/05/2022 [facility] DATE CREATED AUTHOR AUTHOR'S ORGANIZ ATION 08/14/2025 [facility] DATE CREATED AUTHOR AUTHOR'S ORGANIZ ATION 08/15/2025 [facility] Source Comments (unrecognize d section and content) In the event this informatio n is protected by the Federal Confidentiality of Alcohol and Drug Abuse Patient Records regulations: The Federal rules restrict any use of the information to criminally investigate or prosecute any alcohol or drug abuse patient.[facility] RehabilitationIn the event this information is protected by the Federal Confidentiality of Alcohol and Drug Abuse Patient Records regulations: The Federal rules restrict any use of the information to criminally investigate or prosecute any alcohol or drug abuse patient.[facility] RehabilitationIn the event this information is protected by the Federal Confidentiality of Alcohol and Drug Abuse Patient Records regulations: The Federal rules restrict any use of the information to criminally investigate or prosecute any alcohol or drug abuse patient.[facility] RehabilitationIn the event this information is protected by the Federal Confidentiality of Alcohol and Drug Abuse Patient Records regulations: The Federal rules restrict any use of the information to criminally investigate or prosecute any alcohol or drug abuse patient.[facility] RehabilitationIn the event this information is protected by the Federal Confidentiality of Alcohol and Drug Abuse Patient Records regulations: The Federal rules restrict any use of the information to criminally investigate or prosecute any alcohol or drug abuse patient.[facility] RehabilitationIn the event this information is protected by the Federal Confidentiality of Alcohol and Drug Abuse Patient Records regulations: The Federal rules restrict any use of the information to criminally investigate or prosecute any alcohol or drug abuse patient.[facility] RehabilitationIn the event this information is protected by the Federal Confidentiality of Alcohol and Drug Abuse Patient Records regulations: The Federal rules restrict any use of the information to criminally investigate or prosecute any alcohol or drug abuse patient.[facility] RehabilitationIn the event this information is protected by the Federal Confidentiality of Alcohol and Drug Abuse Patient Records regulations: The Federal rules restrict any use of the information to criminally investigate or prosecute any alcohol or drug abuse patient.[facility] RehabilitationIn the event this information is protected by the Federal Confidentiality of Alcohol and Drug Abuse Patient Records regulations: The Federal rules restrict any use of the information to criminally investigate or prosecute any alcohol or drug abuse patient.[facility] RehabilitationIn the event this information is protected by the Federal Confidentiality of Alcohol and Drug Abuse Patient Records regulations: The Federal rules restrict any use of the information to criminally investigate or prosecute any alcohol or drug abuse patient.[facility] RehabilitationIn the event this information is protected by the Federal Confidentiality of Alcohol and Drug Abuse Patient Records regulations: The Federal rules restrict any use of the information to criminally investigate or prosecute any alcohol or drug abuse patient.[facility] RehabilitationIn the event this information is protected by the Federal Confidentiality of Alcohol and Drug Abuse Patient Records regulations: The Federal rules restrict any use of the information to criminally investigate or prosecute any alcohol or drug abuse patient.[facility] RehabilitationIn the event this information is protected by the Federal Confidentiality of Alcohol and Drug Abuse Patient Records regulations: The Federal rules restrict any use of the information to criminally investigate or prosecute any alcohol or drug abuse patient.[facility] RehabilitationIn the event this information is protected by the Federal Confidentiality of Alcohol and Drug Abuse Patient Records regulations: The Federal rules restrict any use of the information to criminally investigate or prosecute any alcohol or drug abuse patient.[facility] RehabilitationIn the event this information is protected by the Federal Confidentiality of Alcohol and Drug Abuse Patient Records regulations: The Federal rules restrict any use of the information to criminally investigate or prosecute any alcohol or drug abuse patient.[facility] RehabilitationIn the event this information is protected by the Federal Confidentiality of Alcohol and Drug Abuse Patient Records regulations: The Federal rules restrict any use of the information to criminally investigate or prosecute any alcohol or drug abuse patient.[facility] RehabilitationIn the event this information is protected by the Federal Confidentiality of Alcohol and Drug Abuse Patient Records regulations: The Federal rules restrict any use of the information to criminally investigate or prosecute any alcohol or drug abuse patient.[facility] RehabilitationIn the event this information is protected by the Federal Confidentiality of Alcohol and Drug Abuse Patient Records regulations: The Federal rules restrict any use of the information to criminally investigate or prosecute any alcohol or drug abuse patient.[facility] RehabilitationIn the event this information is protected by the Federal Confidentiality of Alcohol and Drug Abuse Patient Records regulations: The Federal rules restrict any use of the information to criminally investigate or prosecute any alcohol or drug abuse patient.[facility] RehabilitationIn the event this information is protected by the Federal Confidentiality of Alcohol and Drug Abuse Patient Records regulations: The Federal rules restrict any use of the information to criminally investigate or prosecute any alcohol or drug abuse patient.[facility] RehabilitationIn the event this information is protected by the Federal Confidentiality of Alcohol and Drug Abuse Patient Records regulations: The Federal rules restrict any use of the information to criminally investigate or prosecute any alcohol or drug abuse patient.[facility] RehabilitationIn the event this information is protected by the Federal Confidentiality of Alcohol and Drug Abuse Patient Records regulations: The Federal rules restrict any use of the information to criminally investigate or prosecute any alcohol or drug abuse patient.[facility] RehabilitationIn the event this information is protected by the Federal Confidentiality of Alcohol and Drug Abuse Patient Records regulations: The Federal rules restrict any use of the information to criminally investigate or prosecute any alcohol or drug abuse patient.[facility] RehabilitationIn the event this information is protected by the Federal Confidentiality of Alcohol and Drug Abuse Patient Records regulations: The Federal rules restrict any use of the information to criminally investigate or prosecute any alcohol or drug abuse patient.[facility] RehabilitationIn the event this information is protected by the Federal Confidentiality of Alcohol and Drug Abuse Patient Records regulations: The Federal rules restrict any use of the information to criminally investigate or prosecute any alcohol or drug abuse patient.[facility] RehabilitationIn the event this information is protected by the Federal Confidentiality of Alcohol and Drug Abuse Patient Records regulations: The Federal rules restrict any use of the information to criminally investigate or prosecute any alcohol or drug abuse patient.[facility] RehabilitationIn the event this information is protected by the Federal Confidentiality of Alcohol and Drug Abuse Patient Records regulations: The Federal rules restrict any use of the information to criminally investigate or prosecute any alcohol or drug abuse patient.[facility] RehabilitationIn the event this information is protected by the Federal Confidentiality of Alcohol and Drug Abuse Patient Records regulations: The Federal rules restrict any use of the information to criminally investigate or prosecute any alcohol or drug abuse patient.[facility] RehabilitationIn the event this information is protected by the Federal Confidentiality of Alcohol and Drug Abuse Patient Records regulations: The Federal rules restrict any use of the information to criminally investigate or prosecute any alcohol or drug abuse patient.[facility] RehabilitationIn the event this information is protected by the Federal Confidentiality of Alcohol and Drug Abuse Patient Records regulations: The Federal rules restrict any use of the information to criminally investigate or prosecute any alcohol or drug abuse patient.[facility] RehabilitationIn the event this information is protected by the Federal Confidentiality of Alcohol and Drug Abuse Patient Records regulations: The Federal rules restrict any use of the information to criminally investigate or prosecute any alcohol or drug abuse patient.[facility] RehabilitationIn the event this information is protected by the Federal Confidentiality of Alcohol and Drug Abuse Patient Records regulations: The Federal rules restrict any use of the information to criminally investigate or prosecute any alcohol or drug abuse patient.[facility] RehabilitationIn the event this information is protected by the Federal Confidentiality of Alcohol and Drug Abuse Patient Records regulations: The Federal rules restrict any use of the information to criminally investigate or prosecute any alcohol or drug abuse patient.[facility] RehabilitationIn the event this information is protected by the Federal Confidentiality of Alcohol and Drug Abuse Patient Records regulations: The Federal rules restrict any use of the information to criminally investigate or prosecute any alcohol or drug abuse patient.[facility] RehabilitationIn the event this information is protected by the Federal Confidentiality of Alcohol and Drug Abuse Patient Records regulations: The Federal rules restrict any use of the information to criminally investigate or prosecute any alcohol or drug abuse patient.[facility] RehabilitationIn the event this information is protected by the Federal Confidentiality of Alcohol and Drug Abuse Patient Records regulations: The Federal rules restrict any use of the information to criminally investigate or prosecute any alcohol or drug abuse patient.[facility] RehabilitationIn the event this information is protected by the Federal Confidentiality of Alcohol and Drug Abuse Patient Records regulations: The Federal rules restrict any use of the information to criminally investigate or prosecute any alcohol or drug abuse patient.[facility] RehabilitationIn the event this information is protected by the Federal Confidentiality of Alcohol and Drug Abuse Patient Records regulations: The Federal rules restrict any use of the information to criminally investigate or prosecute any alcohol or drug abuse patient.[facility] RehabilitationIn the event this information is protected by the Federal Confidentiality of Alcohol and Drug Abuse Patient Records regulations: The Federal rules restrict any use of the information to criminally investigate or prosecute any alcohol or drug abuse patient.[facility] RehabilitationIn the event this information is protected by the Federal Confidentiality of Alcohol and Drug Abuse Patient Records regulations: The Federal rules restrict any use of the information to criminally investigate or prosecute any alcohol or drug abuse patient.[facility] RehabilitationIn the event this information is protected by the Federal Confidentiality of Alcohol and Drug Abuse Patient Records regulations: The Federal rules restrict any use of the information to criminally investigate or prosecute any alcohol or drug abuse patient.[facility] RehabilitationIn the event this information is protected by the Federal Confidentiality of Alcohol and Drug Abuse Patient Records regulations: The Federal rules restrict any use of the information to criminally investigate or prosecute any alcohol or drug abuse patient.[facility] RehabilitationIn the event this information is protected by the Federal Confidentiality of Alcohol and Drug Abuse Patient Records regulations: The Federal rules restrict any use of the information to criminally investigate or prosecute any alcohol or drug abuse patient.[facility] RehabilitationIn the event this information is protected by the Federal Confidentiality of Alcohol and Drug Abuse Patient Records regulations: The Federal rules restrict any use of the information to criminally investigate or prosecute any alcohol or drug abuse patient.[facility] RehabilitationIn the event this information is protected by the Federal Confidentiality of Alcohol and Drug Abuse Patient Records regulations: The Federal rules restrict any use of the information to criminally investigate or prosecute any alcohol or drug abuse patient.[facility] RehabilitationIn the event this information is protected by the Federal Confidentiality of Alcohol and Drug Abuse Patient Records regulations: The Federal rules restrict any use of the information to criminally investigate or prosecute any alcohol or drug abuse patient.[facility] RehabilitationIn the event this information is protected by the Federal Confidentiality of Alcohol and Drug Abuse Patient Records regulations: The Federal rules restrict any use of the information to criminally investigate or prosecute any alcohol or drug abuse patient.[facility] RehabilitationIn the event this information is protected by the Federal Confidentiality of Alcohol and Drug Abuse Patient Records regulations: The Federal rules restrict any use of the information to criminally investigate or prosecute any alcohol or drug abuse patient.[facility] RehabilitationIn the event this information is protected by the Federal Confidentiality of Alcohol and Drug Abuse Patient Records regulations: The Federal rules restrict any use of the information to criminally investigate or prosecute any alcohol or drug abuse patient.[facility] RehabilitationIn the event this information is protected by the Federal Confidentiality of Alcohol and Drug Abuse Patient Records regulations: The Federal rules restrict any use of the information to criminally investigate or prosecute any alcohol or drug abuse patient.[facility] RehabilitationIn the event this information is protected by the Federal Confidentiality of Alcohol and Drug Abuse Patient Records regulations: The Federal rules restrict any use of the information to criminally investigate or prosecute any alcohol or drug abuse patient.[facility] RehabilitationIn the event this information is protected by the Federal Confidentiality of Alcohol and Drug Abuse Patient Records regulations: The Federal rules restrict any use of the information to criminally investigate or prosecute any alcohol or drug abuse patient.[facility] RehabilitationIn the event this information is protected by the Federal Confidentiality of Alcohol and Drug Abuse Patient Records regulations: The Federal rules restrict any use of the information to criminally investigate or prosecute any alcohol or drug abuse patient.[facility] RehabilitationIn the event this information is protected by the Federal Confidentiality of Alcohol and Drug Abuse Patient Records regulations: The Federal rules restrict any use of the information to criminally investigate or prosecute any alcohol or drug abuse patient.[facility] RehabilitationIn the event this information is protected by the Federal Confidentiality of Alcohol and Drug Abuse Patient Records regulations: The Federal rules restrict any use of the information to criminally investigate or prosecute any alcohol or drug abuse patient.[facility] RehabilitationIn the event this information is protected by the Federal Confidentiality of Alcohol and Drug Abuse Patient Records regulations: The Federal rules restrict any use of the information to criminally investigate or prosecute any alcohol or drug abuse patient.[facility] RehabilitationIn the event this information is protected by the Federal Confidentiality of Alcohol and Drug Abuse Patient Records regulations: The Federal rules restrict any use of the information to criminally investigate or prosecute any alcohol or drug abuse patient.[facility] RehabilitationIn the event this information is protected by the Federal Confidentiality of Alcohol and Drug Abuse Patient Records regulations: The Federal rules restrict any use of the information to criminally investigate or prosecute any alcohol or drug abuse patient.[facility] RehabilitationIn the event this information is protected by the Federal Confidentiality of Alcohol and Drug Abuse Patient Records regulations: The Federal rules restrict any use of the information to criminally investigate or prosecute any alcohol or drug abuse patient.[facility] RehabilitationIn the event this information is protected by the Federal Confidentiality of Alcohol and Drug Abuse Patient Records regulations: The Federal rules restrict any use of the information to criminally investigate or prosecute any alcohol or drug abuse patient.[facility] RehabilitationIn the event this information is protected by the Federal Confidentiality of Alcohol and Drug Abuse Patient Records regulations: The Federal rules restrict any use of the information to criminally investigate or prosecute any alcohol or drug abuse patient.[facility] RehabilitationIn the event this information is protected by the Federal Confidentiality of Alcohol and Drug Abuse Patient Records regulations: The Federal rules restrict any use of the information to criminally investigate or prosecute any alcohol or drug abuse patient.[facility] RehabilitationIn the event this information is protected by the Federal Confidentiality of Alcohol and Drug Abuse Patient Records regulations: The Federal rules restrict any use of the information to criminally investigate or prosecute any alcohol or drug abuse patient.[facility] RehabilitationIn the event this information is protected by the Federal Confidentiality of Alcohol and Drug Abuse Patient Records regulations: The Federal rules restrict any use of the information to criminally investigate or prosecute any alcohol or drug abuse patient.[facility] RehabilitationIn the event this information is protected by the Federal Confidentiality of Alcohol and Drug Abuse Patient Records regulations: The Federal rules restrict any use of the information to criminally investigate or prosecute any alcohol or drug abuse patient.[facility] RehabilitationIn the event this information is protected by the Federal Confidentiality of Alcohol and Drug Abuse Patient Records regulations: The Federal rules restrict any use of the information to criminally investigate or prosecute any alcohol or drug abuse patient.[facility] RehabilitationIn the event this information is protected by the Federal Confidentiality of Alcohol and Drug Abuse Patient Records regulations: The Federal rules restrict any use of the information to criminally investigate or prosecute any alcohol or drug abuse patient.[facility] RehabilitationIn the event this information is protected by the Federal Confidentiality of Alcohol and Drug Abuse Patient Records regulations: The Federal rules restrict any use of the information to criminally investigate or prosecute any alcohol or drug abuse patient.[facility] RehabilitationIn the event this information is protected by the Federal Confidentiality of Alcohol and Drug Abuse Patient Records regulations: The Federal rules restrict any use of the information to criminally investigate or prosecute any alcohol or drug abuse patient.[facility] RehabilitationIn the event this information is protected by the Federal Confidentiality of Alcohol and Drug Abuse Patient Records regulations: The Federal rules restrict any use of the information to criminally investigate or prosecute any alcohol or drug abuse patient.[facility] RehabilitationIn the event this information is protected by the Federal Confidentiality of Alcohol and Drug Abuse Patient Records regulations: The Federal rules restrict any use of the information to criminally investigate or prosecute any alcohol or drug abuse patient.[facility] RehabilitationIn the event this information is protected by the Federal Confidentiality of Alcohol and Drug Abuse Patient Records regulations: The Federal rules restrict any use of the information to criminally investigate or prosecute any alcohol or drug abuse patient.[facility] RehabilitationIn the event this information is protected by the Federal Confidentiality of Alcohol and Drug Abuse Patient Records regulations: The Federal rules restrict any use of the information to criminally investigate or prosecute any alcohol or drug abuse patient.[facility] RehabilitationIn the event this information is protected by the Federal Confidentiality of Alcohol and Drug Abuse Patient Records regulations: The Federal rules restrict any use of the information to criminally investigate or prosecute any alcohol or drug abuse patient.[facility] RehabilitationIn the event this information is protected by the Federal Confidentiality of Alcohol and Drug Abuse Patient Records regulations: The Federal rules restrict any use of the information to criminally investigate or prosecute any alcohol or drug abuse patient.[facility] RehabilitationIn the event this information is protected by the Federal Confidentiality of Alcohol and Drug Abuse Patient Records regulations: The Federal rules restrict any use of the information to criminally investigate or prosecute any alcohol or drug abuse patient.[facility] RehabilitationIn the event this information is protected by the Federal Confidentiality of Alcohol and Drug Abuse Patient Records regulations: The Federal rules restrict any use of the information to criminally investigate or prosecute any alcohol or drug abuse patient.[facility] RehabilitationIn the event this information is protected by the Federal Confidentiality of Alcohol and Drug Abuse Patient Records regulations: The Federal rules restrict any use of the information to criminally investigate or prosecute any alcohol or drug abuse patient.[facility] RehabilitationIn the event this information is protected by the Federal Confidentiality of Alcohol and Drug Abuse Patient Records regulations: The Federal rules restrict any use of the information to criminally investigate or prosecute any alcohol or drug abuse patient.[facility] RehabilitationIn the event this information is protected by the Federal Confidentiality of Alcohol and Drug Abuse Patient Records regulations: The Federal rules restrict any use of the information to criminally investigate or prosecute any alcohol or drug abuse patient.[facility] RehabilitationIn the event this information is protected by the Federal Confidentiality of Alcohol and Drug Abuse Patient Records regulations: The Federal rules restrict any use of the information to criminally investigate or prosecute any alcohol or drug abuse patient.[facility] RehabilitationIn the event this information is protected by the Federal Confidentiality of Alcohol and Drug Abuse Patient Records regulations: The Federal rules restrict any use of the information to criminally investigate or prosecute any alcohol or drug abuse patient.[facility] RehabilitationIn the event this information is protected by the Federal Confidentiality of Alcohol and Drug Abuse Patient Records regulations: The Federal rules restrict any use of the information to criminally investigate or prosecute any alcohol or drug abuse patient.[facility] RehabilitationIn the event this information is protected by the Federal Confidentiality of Alcohol and Drug Abuse Patient Records regulations: The Federal rules restrict any use of the information to criminally investigate or prosecute any alcohol or drug abuse patient.[facility] RehabilitationIn the event this information is protected by the Federal Confidentiality of Alcohol and Drug Abuse Patient Records regulations: The Federal rules restrict any use of the information to criminally investigate or prosecute any alcohol or drug abuse patient.[facility] RehabilitationIn the event this information is protected by the Federal Confidentiality of Alcohol and Drug Abuse Patient Records regulations: The Federal rules restrict any use of the information to criminally investigate or prosecute any alcohol or drug abuse patient.[facility] RehabilitationIn the event this information is protected by the Federal Confidentiality of Alcohol and Drug Abuse Patient Records regulations: The Federal rules restrict any use of the information to criminally investigate or prosecute any alcohol or drug abuse patient.[facility] RehabilitationIn the event this information is protected by the Federal Confidentiality of Alcohol and Drug Abuse Patient Records regulations: The Federal rules restrict any use of the information to criminally investigate or prosecute any alcohol or drug abuse patient.[facility] RehabilitationIn the event this information is protected by the Federal Confidentiality of Alcohol and Drug Abuse Patient Records regulations: The Federal rules restrict any use of the information to criminally investigate or prosecute any alcohol or drug abuse patient.[facility] RehabilitationIn the event this information is protected by the Federal Confidentiality of Alcohol and Drug Abuse Patient Records regulations: The Federal rules restrict any use of the information to criminally investigate or prosecute any alcohol or drug abuse patient.[facility] RehabilitationIn the event this information is protected by the Federal Confidentiality of Alcohol and Drug Abuse Patient Records regulations: The Federal rules restrict any use of the information to criminally investigate or prosecute any alcohol or drug abuse patient.[facility] RehabilitationIn the event this information is protected by the Federal Confidentiality of Alcohol and Drug Abuse Patient Records regulations: The Federal rules restrict any use of the information to criminally investigate or prosecute any alcohol or drug abuse patient.[facility] RehabilitationIn the event this information is protected by the Federal Confidentiality of Alcohol and Drug Abuse Patient Records regulations: The Federal rules restrict any use of the information to criminally investigate or prosecute any alcohol or drug abuse patient.[facility] RehabilitationIn the event this information is protected by the Federal Confidentiality of Alcohol and Drug Abuse Patient Records regulations: The Federal rules restrict any use of the information to criminally investigate or prosecute any alcohol or drug abuse patient.[facility] RehabilitationIn the event this information is protected by the Federal Confidentiality of Alcohol and Drug Abuse Patient Records regulations: The Federal rules restrict any use of the information to criminally investigate or prosecute any alcohol or drug abuse patient.[facility] RehabilitationIn the event this information is protected by the Federal Confidentiality of Alcohol and Drug Abuse Patient Records regulations: The Federal rules restrict any use of the information to criminally investigate or prosecute any alcohol or drug abuse patient.[facility] RehabilitationIn the event this information is protected by the Federal Confidentiality of Alcohol and Drug Abuse Patient Records regulations: The Federal rules restrict any use of the information to criminally investigate or prosecute any alcohol or drug abuse patient.[facility] RehabilitationIn the event this information is protected by the Federal Confidentiality of Alcohol and Drug Abuse Patient Records regulations: The Federal rules restrict any use of the information to criminally investigate or prosecute any alcohol or drug abuse patient.[facility] RehabilitationIn the event this information is protected by the Federal Confidentiality of Alcohol and Drug Abuse Patient Records regulations: The Federal rules restrict any use of the information to criminally investigate or prosecute any alcohol or drug abuse patient.[facility] RehabilitationIn the event this information is protected by the Federal Confidentiality of Alcohol and Drug Abuse Patient Records regulations: The Federal rules restrict any use of the information to criminally investigate or prosecute any alcohol or drug abuse patient.[facility] RehabilitationIn the event this information is protected by the Federal Confidentiality of Alcohol and Drug Abuse Patient Records regulations: The Federal rules restrict any use of the information to criminally investigate or prosecute any alcohol or drug abuse patient.[facility] RehabilitationIn the event this information is protected by the Federal Confidentiality of Alcohol and Drug Abuse Patient Records regulations: The Federal rules restrict any use of the information to criminally investigate or prosecute any alcohol or drug abuse patient.[facility] RehabilitationIn the event this information is protected by the Federal Confidentiality of Alcohol and Drug Abuse Patient Records regulations: The Federal rules restrict any use of the information to criminally investigate or prosecute any alcohol or drug abuse patient.[facility] RehabilitationIn the event this information is protected by the Federal Confidentiality of Alcohol and Drug Abuse Patient Records regulations: The Federal rules restrict any use of the information to criminally investigate or prosecute any alcohol or drug abuse patient.[facility] RehabilitationIn the event this information is protected by the Federal Confidentiality of Alcohol and Drug Abuse Patient Records regulations: The Federal rules restrict any use of the information to criminally investigate or prosecute any alcohol or drug abuse patient.[facility] RehabilitationIn the event this information is protected by the Federal Confidentiality of Alcohol and Drug Abuse Patient Records regulations: The Federal rules restrict any use of the information to criminally investigate or prosecute any alcohol or drug abuse patient.[facility] RehabilitationIn the event this information is protected by the Federal Confidentiality of Alcohol and Drug Abuse Patient Records regulations: The Federal rules restrict any use of the information to criminally investigate or prosecute any alcohol or drug abuse patient.[facility] RehabilitationIn the event this information is protected by the Federal Confidentiality of Alcohol and Drug Abuse Patient Records regulations: The Federal rules restrict any use of the information to criminally investigate or prosecute any alcohol or drug abuse patient.[facility] RehabilitationIn the event this information is protected by the Federal Confidentiality of Alcohol and Drug Abuse Patient Records regulations: The Federal rules restrict any use of the information to criminally investigate or prosecute any alcohol or drug abuse patient.[facility] RehabilitationIn the event this information is protected by the Federal Confidentiality of Alcohol and Drug Abuse Patient Records regulations: The Federal rules restrict any use of the information to criminally investigate or prosecute any alcohol or drug abuse patient.[facility] RehabilitationIn the event this information is protected by the Federal Confidentiality of Alcohol and Drug Abuse Patient Records regulations: The Federal rules restrict any use of the information to criminally investigate or prosecute any alcohol or drug abuse patient.[facility] RehabilitationIn the event this information is protected by the Federal Confidentiality of Alcohol and Drug Abuse Patient Records regulations: The Federal rules restrict any use of the information to criminally investigate or prosecute any alcohol or drug abuse patient.[facility] RehabilitationIn the event this information is protected by the Federal Confidentiality of Alcohol and Drug Abuse Patient Records regulations: The Federal rules restrict any use of the information to criminally investigate or prosecute any alcohol or drug abuse patient.[facility] RehabilitationIn the event this information is protected by the Federal Confidentiality of Alcohol and Drug Abuse Patient Records regulations: The Federal rules restrict any use of the information to criminally investigate or prosecute any alcohol or drug abuse patient.[facility] RehabilitationIn the event this information is protected by the Federal Confidentiality of Alcohol and Drug Abuse Patient Records regulations: The Federal rules restrict any use of the information to criminally investigate or prosecute any alcohol or drug abuse patient.[facility] RehabilitationIn the event this information is protected by the Federal Confidentiality of Alcohol and Drug Abuse Patient Records regulations: The Federal rules restrict any use of the information to criminally investigate or prosecute any alcohol or drug abuse patient.[facility] RehabilitationIn the event this information is protected by the Federal Confidentiality of Alcohol and Drug Abuse Patient Records regulations: The Federal rules restrict any use of the information to criminally investigate or prosecute any alcohol or drug abuse patient.[facility] RehabilitationIn the event this information is protected by the Federal Confidentiality of Alcohol and Drug Abuse Patient Records regulations: The Federal rules restrict any use of the information to criminally investigate or prosecute any alcohol or drug abuse patient.[facility] RehabilitationIn the event this information is protected by the Federal Confidentiality of Alcohol and Drug Abuse Patient Records regulations: The Federal rules restrict any use of the information to criminally investigate or prosecute any alcohol or drug abuse patient.[facility] RehabilitationIn the event this information is protected by the Federal Confidentiality of Alcohol and Drug Abuse Patient Records regulations: The Federal rules restrict any use of the information to criminally investigate or prosecute any alcohol or drug abuse patient.[facility] RehabilitationIn the event this information is protected by the Federal Confidentiality of Alcohol and Drug Abuse Patient Records regulations: The Federal rules restrict any use of the information to criminally investigate or prosecute any alcohol or drug abuse patient.[facility] RehabilitationIn the event this information is protected by the Federal Confidentiality of Alcohol and Drug Abuse Patient Records regulations: The Federal rules restrict any use of the information to criminally investigate or prosecute any alcohol or drug abuse patient.[facility] RehabilitationIn the event this information is protected by the Federal Confidentiality of Alcohol and Drug Abuse Patient Records regulations: The Federal rules restrict any use of the information to criminally investigate or prosecute any alcohol or drug abuse patient.[facility] RehabilitationIn the event this information is protected by the Federal Confidentiality of Alcohol and Drug Abuse Patient Records regulations: The Federal rules restrict any use of the information to criminally investigate or prosecute any alcohol or drug abuse patient.[facility] RehabilitationIn the event this information is protected by the Federal Confidentiality of Alcohol and Drug Abuse Patient Records regulations: The Federal rules restrict any use of the information to criminally investigate or prosecute any alcohol or drug abuse patient.[facility] RehabilitationIn the event this information is protected by the Federal Confidentiality of Alcohol and Drug Abuse Patient Records regulations: The Federal rules restrict any use of the information to criminally investigate or prosecute any alcohol or drug abuse patient.[facility] RehabilitationIn the event this information is protected by the Federal Confidentiality of Alcohol and Drug Abuse Patient Records regulations: The Federal rules restrict any use of the information to criminally investigate or prosecute any alcohol or drug abuse patient.[facility] RehabilitationIn the event this information is protected by the Federal Confidentiality of Alcohol and Drug Abuse Patient Records regulations: The Federal rules restrict any use of the information to criminally investigate or prosecute any alcohol or drug abuse patient.[facility] RehabilitationIn the event this information is protected by the Federal Confidentiality of Alcohol and Drug Abuse Patient Records regulations: The Federal rules restrict any use of the information to criminally investigate or prosecute any alcohol or drug abuse patient.[facility] RehabilitationIn the event this information is protected by the Federal Confidentiality of Alcohol and Drug Abuse Patient Records regulations: The Federal rules restrict any use of the information to criminally investigate or prosecute any alcohol or drug abuse patient.[facility] RehabilitationIn the event this information is protected by the Federal Confidentiality of Alcohol and Drug Abuse Patient Records regulations: The Federal rules restrict any use of the information to criminally investigate or prosecute any alcohol or drug abuse patient.[facility] RehabilitationIn the event this information is protected by the Federal Confidentiality of Alcohol and Drug Abuse Patient Records regulations: The Federal rules restrict any use of the information to criminally investigate or prosecute any alcohol or drug abuse patient.[facility] RehabilitationIn the event this information is protected by the Federal Confidentiality of Alcohol and Drug Abuse Patient Records regulations: The Federal rules restrict any use of the information to criminally investigate or prosecute any alcohol or drug abuse patient.[facility] RehabilitationIn the event this information is protected by the Federal Confidentiality of Alcohol and Drug Abuse Patient Records regulations: The Federal rules restrict any use of the information to criminally investigate or prosecute any alcohol or drug abuse patient.[facility] RehabilitationIn the event this information is protected by the Federal Confidentiality of Alcohol and Drug Abuse Patient Records regulations: The Federal rules restrict any use of the information to criminally investigate or prosecute any alcohol or drug abuse patient.[facility] RehabilitationIn the event this information is protected by the Federal Confidentiality of Alcohol and Drug Abuse Patient Records regulations: The Federal rules restrict any use of the information to criminally investigate or prosecute any alcohol or drug abuse patient.[facility] RehabilitationIn the event this information is protected by the Federal Confidentiality of Alcohol and Drug Abuse Patient Records regulations: The Federal rules restrict any use of the information to criminally investigate or prosecute any alcohol or drug abuse patient.[facility] RehabilitationIn the event this information is protected by the Federal Confidentiality of Alcohol and Drug Abuse Patient Records regulations: The Federal rules restrict any use of the information to criminally investigate or prosecute any alcohol or drug abuse patient.[facility] RehabilitationIn the event this information is protected by the Federal Confidentiality of Alcohol and Drug Abuse Patient Records regulations: The Federal rules restrict any use of the information to criminally investigate or prosecute any alcohol or drug abuse patient.[facility] RehabilitationIn the event this information is protected by the Federal Confidentiality of Alcohol and Drug Abuse Patient Records regulations: The Federal rules restrict any use of the information to criminally investigate or prosecute any alcohol or drug abuse patient.[facility] RehabilitationIn the event this information is protected by the Federal Confidentiality of Alcohol and Drug Abuse Patient Records regulations: The Federal rules restrict any use of the information to criminally investigate or prosecute any alcohol or drug abuse patient.[facility] RehabilitationIn the event this information is protected by the Federal Confidentiality of Alcohol and Drug Abuse Patient Records regulations: The Federal rules restrict any use of the information to criminally investigate or prosecute any alcohol or drug abuse patient.[facility] RehabilitationIn the event this information is protected by the Federal Confidentiality of Alcohol and Drug Abuse Patient Records regulations: The Federal rules restrict any use of the information to criminally investigate or prosecute any alcohol or drug abuse patient.[facility] RehabilitationIn the event this information is protected by the Federal Confidentiality of Alcohol and Drug Abuse Patient Records regulations: The Federal rules restrict any use of the information to criminally investigate or prosecute any alcohol or drug abuse patient.[facility] RehabilitationIn the event this information is protected by the Federal Confidentiality of Alcohol and Drug Abuse Patient Records regulations: The Federal rules restrict any use of the information to criminally investigate or prosecute any alcohol or drug abuse patient.[facility] RehabilitationIn the event this information is protected by the Federal Confidentiality of Alcohol and Drug Abuse Patient Records regulations: The Federal rules restrict any use of the information to criminally investigate or prosecute any alcohol or drug abuse patient.[facility] RehabilitationIn the event this information is protected by the Federal Confidentiality of Alcohol and Drug Abuse Patient Records regulations: The Federal rules restrict any use of the information to criminally investigate or prosecute any alcohol or drug abuse patient.[facility] RehabilitationIn the event this information is protected by the Federal Confidentiality of Alcohol and Drug Abuse Patient Records regulations: The Federal rules restrict any use of the information to criminally investigate or prosecute any alcohol or drug abuse patient.[facility] RehabilitationIn the event this information is protected by the Federal Confidentiality of Alcohol and Drug Abuse Patient Records regulations: The Federal rules restrict any use of the information to criminally investigate or prosecute any alcohol or drug abuse patient.[facility] RehabilitationIn the event this information is protected by the Federal Confidentiality of Alcohol and Drug Abuse Patient Records regulations: The Federal rules restrict any use of the information to criminally investigate or prosecute any alcohol or drug abuse patient.[facility] RehabilitationIn the event this information is protected by the Federal Confidentiality of Alcohol and Drug Abuse Patient Records regulations: The Federal rules restrict any use of the information to criminally investigate or prosecute any alcohol or drug abuse patient.[facility] RehabilitationIn the event this information is protected by the Federal Confidentiality of Alcohol and Drug Abuse Patient Records regulations: The Federal rules restrict any use of the information to criminally investigate or prosecute any alcohol or drug abuse patient.[facility] RehabilitationIn the event this information is protected by the Federal Confidentiality of Alcohol and Drug Abuse Patient Records regulations: The Federal rules restrict any use of the information to criminally investigate or prosecute any alcohol or drug abuse patient.[facility] RehabilitationIn the event this information is protected by the Federal Confidentiality of Alcohol and Drug Abuse Patient Records regulations: The Federal rules restrict any use of the information to criminally investigate or prosecute any alcohol or drug abuse patient.[facility] RehabilitationIn the event this information is protected by the Federal Confidentiality of Alcohol and Drug Abuse Patient Records regulations: The Federal rules restrict any use of the information to criminally investigate or prosecute any alcohol or drug abuse patient.[facility] RehabilitationIn the event this information is protected by the Federal Confidentiality of Alcohol and Drug Abuse Patient Records regulations: The Federal rules restrict any use of the information to criminally investigate or prosecute any alcohol or drug abuse patient.[facility] RehabilitationIn the event this information is protected by the Federal Confidentiality of Alcohol and Drug Abuse Patient Records regulations: The Federal rules restrict any use of the information to criminally investigate or prosecute any alcohol or drug abuse patient.[facility] RehabilitationIn the event this information is protected by the Federal Confidentiality of Alcohol and Drug Abuse Patient Records regulations: The Federal rules restrict any use of the information to criminally investigate or prosecute any alcohol or drug abuse patient.[facility] RehabilitationIn the event this information is protected by the Federal Confidentiality of Alcohol and Drug Abuse Patient Records regulations: The Federal rules restrict any use of the information to criminally investigate or prosecute any alcohol or drug abuse patient.[facility] RehabilitationIn the event this information is protected by the Federal Confidentiality of Alcohol and Drug Abuse Patient Records regulations: The Federal rules restrict any use of the information to criminally investigate or prosecute any alcohol or drug abuse patient.[facility] RehabilitationIn the event this information is protected by the Federal Confidentiality of Alcohol and Drug Abuse Patient Records regulations: The Federal rules restrict any use of the information to criminally investigate or prosecute any alcohol or drug abuse patient.[facility] RehabilitationIn the event this information is protected by the Federal Confidentiality of Alcohol and Drug Abuse Patient Records regulations: The Federal rules restrict any use of the information to criminally investigate or prosecute any alcohol or drug abuse patient.[facility] RehabilitationIn the event this information is protected by the Federal Confidentiality of Alcohol and Drug Abuse Patient Records regulations: The Federal rules restrict any use of the information to criminally investigate or prosecute any alcohol or drug abuse patient.[facility] RehabilitationIn the event this information is protected by the Federal Confidentiality of Alcohol and Drug Abuse Patient Records regulations: The Federal rules restrict any use of the information to criminally investigate or prosecute any alcohol or drug abuse patient.[facility] RehabilitationIn the event this information is protected by the Federal Confidentiality of Alcohol and Drug Abuse Patient Records regulations: The Federal rules restrict any use of the information to criminally investigate or prosecute any alcohol or drug abuse patient.[facility] RehabilitationIn the event this information is protected by the Federal Confidentiality of Alcohol and Drug Abuse Patient Records regulations: The Federal rules restrict any use of the information to criminally investigate or prosecute any alcohol or drug abuse patient.[facility] RehabilitationIn the event this information is protected by the Federal Confidentiality of Alcohol and Drug Abuse Patient Records regulations: The Federal rules restrict any use of the information to criminally investigate or prosecute any alcohol or drug abuse patient.[facility] RehabilitationIn the event this information is protected by the Federal Confidentiality of Alcohol and Drug Abuse Patient Records regulations: The Federal rules restrict any use of the information to criminally investigate or prosecute any alcohol or drug abuse patient.[facility] RehabilitationIn the event this information is protected by the Federal Confidentiality of Alcohol and Drug Abuse Patient Records regulations: The Federal rules restrict any use of the information to criminally investigate or prosecute any alcohol or drug abuse patient.[facility] RehabilitationIn the event this information is protected by the Federal Confidentiality of Alcohol and Drug Abuse Patient Records regulations: The Federal rules restrict any use of the information to criminally investigate or prosecute any alcohol or drug abuse patient.[facility] RehabilitationIn the event this information is protected by the Federal Confidentiality of Alcohol and Drug Abuse Patient Records regulations: The Federal rules restrict any use of the information to criminally investigate or prosecute any alcohol or drug abuse patient.[facility] RehabilitationIn the event this information is protected by the Federal Confidentiality of Alcohol and Drug Abuse Patient Records regulations: The Federal rules restrict any use of the information to criminally investigate or prosecute any alcohol or drug abuse patient.[facility] RehabilitationIn the event this information is protected by the Federal Confidentiality of Alcohol and Drug Abuse Patient Records regulations: The Federal rules restrict any use of the information to criminally investigate or prosecute any alcohol or drug abuse patient.[facility] RehabilitationIn the event this information is protected by the Federal Confidentiality of Alcohol and Drug Abuse Patient Records regulations: The Federal rules restrict any use of the information to criminally investigate or prosecute any alcohol or drug abuse patient.[facility] RehabilitationIn the event this information is protected by the Federal Confidentiality of Alcohol and Drug Abuse Patient Records regulations: The Federal rules restrict any use of the information to criminally investigate or prosecute any alcohol or drug abuse patient.[facility] RehabilitationIn the event this information is protected by the Federal Confidentiality of Alcohol and Drug Abuse Patient Records regulations: The Federal rules restrict any use of the information to criminally investigate or prosecute any alcohol or drug abuse patient.[facility] RehabilitationIn the event this information is protected by the Federal Confidentiality of Alcohol and Drug Abuse Patient Records regulations: The Federal rules restrict any use of the information to criminally investigate or prosecute any alcohol or drug abuse patient.[facility] RehabilitationIn the event this information is protected by the Federal Confidentiality of Alcohol and Drug Abuse Patient Records regulations: The Federal rules restrict any use of the information to criminally investigate or prosecute any alcohol or drug abuse patient.[facility] RehabilitationIn the event this information is protected by the Federal Confidentiality of Alcohol and Drug Abuse Patient Records regulations: The Federal rules restrict any use of the information to criminally investigate or prosecute any alcohol or drug abuse patient.[facility] RehabilitationIn the event this information is protected by the Federal Confidentiality of Alcohol and Drug Abuse Patient Records regulations: The Federal rules restrict any use of the information to criminally investigate or prosecute any alcohol or drug abuse patient.[facility] RehabilitationIn the event this information is protected by the Federal Confidentiality of Alcohol and Drug Abuse Patient Records regulations: The Federal rules restrict any use of the information to criminally investigate or prosecute any alcohol or drug abuse patient.[facility] RehabilitationIn the event this information is protected by the Federal Confidentiality of Alcohol and Drug Abuse Patient Records regulations: The Federal rules restrict any use of the information to criminally investigate or prosecute any alcohol or drug abuse patient.[facility] RehabilitationIn the event this information is protected by the Federal Confidentiality of Alcohol and Drug Abuse Patient Records regulations: The Federal rules restrict any use of the information to criminally investigate or prosecute any alcohol or drug abuse patient.[facility] RehabilitationIn the event this information is protected by the Federal Confidentiality of Alcohol and Drug Abuse Patient Records regulations: The Federal rules restrict any use of the information to criminally investigate or prosecute any alcohol or drug abuse patient.[facility] RehabilitationIn the event this information is protected by the Federal Confidentiality of Alcohol and Drug Abuse Patient Records regulations: The Federal rules restrict any use of the information to criminally investigate or prosecute any alcohol or drug abuse patient.[facility] RehabilitationIn the event this information is protected by the Federal Confidentiality of Alcohol and Drug Abuse Patient Records regulations: The Federal rules restrict any use of the information to criminally investigate or prosecute any alcohol or drug abuse patient.[facility] RehabilitationIn the event this information is protected by the Federal Confidentiality of Alcohol and Drug Abuse Patient Records regulations: The Federal rules restrict any use of the information to criminally investigate or prosecute any alcohol or drug abuse patient.[facility] RehabilitationIn the event this information is protected by the Federal Confidentiality of Alcohol and Drug Abuse Patient Records regulations: The Federal rules restrict any use of the information to criminally investigate or prosecute any alcohol or drug abuse patient.[facility] RehabilitationIn the event this information is protected by the Federal Confidentiality of Alcohol and Drug Abuse Patient Records regulations: The Federal rules restrict any use of the information to criminally investigate or prosecute any alcohol or drug abuse patient.[facility] RehabilitationIn the event this information is protected by the Federal Confidentiality of Alcohol and Drug Abuse Patient Records regulations: The Federal rules restrict any use of the information to criminally investigate or prosecute any alcohol or drug abuse patient.[facility] RehabilitationIn the event this information is protected by the Federal Confidentiality of Alcohol and Drug Abuse Patient Records regulations: The Federal rules restrict any use of the information to criminally investigate or prosecute any alcohol or drug abuse patient.[facility] RehabilitationIn the event this information is protected by the Federal Confidentiality of Alcohol and Drug Abuse Patient Records regulations: The Federal rules restrict any use of the information to criminally investigate or prosecute any alcohol or drug abuse patient.[facility] RehabilitationIn the event this information is protected by the Federal Confidentiality of Alcohol and Drug Abuse Patient Records regulations: The Federal rules restrict any use of the information to criminally investigate or prosecute any alcohol or drug abuse patient.[facility] RehabilitationIn the event this information is protected by the Federal Confidentiality of Alcohol and Drug Abuse Patient Records regulations: The Federal rules restrict any use of the information to criminally investigate or prosecute any alcohol or drug abuse patient.[facility] RehabilitationIn the event this information is protected by the Federal Confidentiality of Alcohol and Drug Abuse Patient Records regulations: The Federal rules restrict any use of the information to criminally investigate or prosecute any alcohol or drug abuse patient.[facility] RehabilitationIn the event this information is protected by the Federal Confidentiality of Alcohol and Drug Abuse Patient Records regulations: The Federal rules restrict any use of the information to criminally investigate or prosecute any alcohol or drug abuse patient.[facility] RehabilitationIn the event this information is protected by the Federal Confidentiality of Alcohol and Drug Abuse Patient Records regulations: The Federal rules restrict any use of the information to criminally investigate or prosecute any alcohol or drug abuse patient.[facility] RehabilitationIn the event this information is protected by the Federal Confidentiality of Alcohol and Drug Abuse Patient Records regulations: The Federal rules restrict any use of the information to criminally investigate or prosecute any alcohol or drug abuse patient.[facility] RehabilitationIn the event this information is protected by the Federal Confidentiality of Alcohol and Drug Abuse Patient Records regulations: The Federal rules restrict any use of the information to criminally investigate or prosecute any alcohol or drug abuse patient.[facility] RehabilitationIn the event this information is protected by the Federal Confidentiality of Alcohol and Drug Abuse Patient Records regulations: The Federal rules restrict any use of the information to criminally investigate or prosecute any alcohol or drug abuse patient.[facility] RehabilitationIn the event this information is protected by the Federal Confidentiality of Alcohol and Drug Abuse Patient Records regulations: The Federal rules restrict any use of the information to criminally investigate or prosecute any alcohol or drug abuse patient.[facility] RehabilitationIn the event this information is protected by the Federal Confidentiality of Alcohol and Drug Abuse Patient Records regulations: The Federal rules restrict any use of the information to criminally investigate or prosecute any alcohol or drug abuse patient.[facility] RehabilitationIn the event this information is protected by the Federal Confidentiality of Alcohol and Drug Abuse Patient Records regulations: The Federal rules restrict any use of the information to criminally investigate or prosecute any alcohol or drug abuse patient.[facility] RehabilitationIn the event this information is protected by the Federal Confidentiality of Alcohol and Drug Abuse Patient Records regulations: The Federal rules restrict any use of the information to criminally investigate or prosecute any alcohol or drug abuse patient.[facility] RehabilitationIn the event this information is protected by the Federal Confidentiality of Alcohol and Drug Abuse Patient Records regulations: The Federal rules restrict any use of the information to criminally investigate or prosecute any alcohol or drug abuse patient.[facility] RehabilitationIn the event this information is protected by the Federal Confidentiality of Alcohol and Drug Abuse Patient Records regulations: The Federal rules restrict any use of the information to criminally investigate or prosecute any alcohol or drug abuse patient.[facility] RehabilitationIn the event this information is protected by the Federal Confidentiality of Alcohol and Drug Abuse Patient Records regulations: The Federal rules restrict any use of the information to criminally investigate or prosecute any alcohol or drug abuse patient.[facility] RehabilitationIn the event this information is protected by the Federal Confidentiality of Alcohol and Drug Abuse Patient Records regulations: The Federal rules restrict any use of the information to criminally investigate or prosecute any alcohol or drug abuse patient.[facility] RehabilitationIn the event this information is protected by the Federal Confidentiality of Alcohol and Drug Abuse Patient Records regulations: The Federal rules restrict any use of the information to criminally investigate or prosecute any alcohol or drug abuse patient.[facility] RehabilitationIn the event this information is protected by the Federal Confidentiality of Alcohol and Drug Abuse Patient Records regulations: The Federal rules restrict any use of the information to criminally investigate or prosecute any alcohol or drug abuse patient.[facility] RehabilitationIn the event this information is protected by the Federal Confidentiality of Alcohol and Drug Abuse Patient Records regulations: The Federal rules restrict any use of the information to criminally investigate or prosecute any alcohol or drug abuse patient.[facility] RehabilitationIn the event this information is protected by the Federal Confidentiality of Alcohol and Drug Abuse Patient Records regulations: The Federal rules restrict any use of the information to criminally investigate or prosecute any alcohol or drug abuse patient.[facility] RehabilitationIn the event this information is protected by the Federal Confidentiality of Alcohol and Drug Abuse Patient Records regulations: The Federal rules restrict any use of the information to criminally investigate or prosecute any alcohol or drug abuse patient.[facility] RehabilitationIn the event this information is protected by the Federal Confidentiality of Alcohol and Drug Abuse Patient Records regulations: The Federal rules restrict any use of the information to criminally investigate or prosecute any alcohol or drug abuse patient.[facility] RehabilitationIn the event this information is protected by the Federal Confidentiality of Alcohol and Drug Abuse Patient Records regulations: The Federal rules restrict any use of the information to criminally investigate or prosecute any alcohol or drug abuse patient.[facility] RehabilitationIn the event this information is protected by the Federal Confidentiality of Alcohol and Drug Abuse Patient Records regulations: The Federal rules restrict any use of the information to criminally investigate or prosecute any alcohol or drug abuse patient.[facility] RehabilitationIn the event this information is protected by the Federal Confidentiality of Alcohol and Drug Abuse Patient Records regulations: The Federal rules restrict any use of the information to criminally investigate or prosecute any alcohol or drug abuse patient.[facility] RehabilitationIn the event this information is protected by the Federal Confidentiality of Alcohol and Drug Abuse Patient Records regulations: The Federal rules restrict any use of the information to criminally investigate or prosecute any alcohol or drug abuse patient.[facility] RehabilitationIn the event this information is protected by the Federal Confidentiality of Alcohol and Drug Abuse Patient Records regulations: The Federal rules restrict any use of the information to criminally investigate or prosecute any alcohol or drug abuse patient.[facility] RehabilitationIn the event this information is protected by the Federal Confidentiality of Alcohol and Drug Abuse Patient Records regulations: The Federal rules restrict any use of the information to criminally investigate or prosecute any alcohol or drug abuse patient.[facility] RehabilitationIn the event this information is protected by the Federal Confidentiality of Alcohol and Drug Abuse Patient Records regulations: The Federal rules restrict any use of the information to criminally investigate or prosecute any alcohol or drug abuse patient.[facility] RehabilitationIn the event this information is protected by the Federal Confidentiality of Alcohol and Drug Abuse Patient Records regulations: The Federal rules restrict any use of the information to criminally investigate or prosecute any alcohol or drug abuse patient.[facility] RehabilitationIn the event this information is protected by the Federal Confidentiality of Alcohol and Drug Abuse Patient Records regulations: The Federal rules restrict any use of the information to criminally investigate or prosecute any alcohol or drug abuse patient.[facility] RehabilitationIn the event this information is protected by the Federal Confidentiality of Alcohol and Drug Abuse Patient Records regulations: The Federal rules restrict any use of the information to criminally investigate or prosecute any alcohol or drug abuse patient.[facility] RehabilitationIn the event this information is protected by the Federal Confidentiality of Alcohol and Drug Abuse Patient Records regulations: The Federal rules restrict any use of the information to criminally investigate or prosecute any alcohol or drug abuse patient.[facility] RehabilitationIn the event this information is protected by the Federal Confidentiality of Alcohol and Drug Abuse Patient Records regulations: The Federal rules restrict any use of the information to criminally investigate or prosecute any alcohol or drug abuse patient.[facility] RehabilitationIn the event this information is protected by the Federal Confidentiality of Alcohol and Drug Abuse Patient Records regulations: The Federal rules restrict any use of the information to criminally investigate or prosecute any alcohol or drug abuse patient.[facility] RehabilitationIn the event this information is protected by the Federal Confidentiality of Alcohol and Drug Abuse Patient Records regulations: The Federal rules restrict any use of the information to criminally investigate or prosecute any alcohol or drug abuse patient.[facility] RehabilitationIn the event this information is protected by the Federal Confidentiality of Alcohol and Drug Abuse Patient Records regulations: The Federal rules restrict any use of the information to criminally investigate or prosecute any alcohol or drug abuse patient.[facility] RehabilitationIn the event this information is protected by the Federal Confidentiality of Alcohol and Drug Abuse Patient Records regulations: The Federal rules restrict any use of the information to criminally investigate or prosecute any alcohol or drug abuse patient.[facility] RehabilitationIn the event this information is protected by the Federal Confidentiality of Alcohol and Drug Abuse Patient Records regulations: The Federal rules restrict any use of the information to criminally investigate or prosecute any alcohol or drug abuse patient.[facility] RehabilitationIn the event this information is protected by the Federal Confidentiality of Alcohol and Drug Abuse Patient Records regulations: The Federal rules restrict any use of the information to criminally investigate or prosecute any alcohol or drug abuse patient.[facility] RehabilitationIn the event this information is protected by the Federal Confidentiality of Alcohol and Drug Abuse Patient Records regulations: The Federal rules restrict any use of the information to criminally investigate or prosecute any alcohol or drug abuse patient.[facility] RehabilitationIn the event this information is protected by the Federal Confidentiality of Alcohol and Drug Abuse Patient Records regulations: The Federal rules restrict any use of the information to criminally investigate or prosecute any alcohol or drug abuse patient.[facility] RehabilitationIn the event this information is protected by the Federal Confidentiality of Alcohol and Drug Abuse Patient Records regulations: The Federal rules restrict any use of the information to criminally investigate or prosecute any alcohol or drug abuse patient.[facility] RehabilitationIn the event this information is protected by the Federal Confidentiality of Alcohol and Drug Abuse Patient Records regulations: The Federal rules restrict any use of the information to criminally investigate or prosecute any alcohol or drug abuse patient.[facility] RehabilitationIn the event this information is protected by the Federal Confidentiality of Alcohol and Drug Abuse Patient Records regulations: The Federal rules restrict any use of the information to criminally investigate or prosecute any alcohol or drug abuse patient.[facility] RehabilitationIn the event this information is protected by the Federal Confidentiality of Alcohol and Drug Abuse Patient Records regulations: The Federal rules restrict any use of the information to criminally investigate or prosecute any alcohol or drug abuse patient.[facility] RehabilitationIn the event this information is protected by the Federal Confidentiality of Alcohol and Drug Abuse Patient Records regulations: The Federal rules restrict any use of the information to criminally investigate or prosecute any alcohol or drug abuse patient.[facility] RehabilitationIn the event this information is protected by the Federal Confidentiality of Alcohol and Drug Abuse Patient Records regulations: The Federal rules restrict any use of the information to criminally investigate or prosecute any alcohol or drug abuse patient.[facility] RehabilitationIn the event this information is protected by the Federal Confidentiality of Alcohol and Drug Abuse Patient Records regulations: The Federal rules restrict any use of the information to criminally investigate or prosecute any alcohol or drug abuse patient.[facility] RehabilitationIn the event this information is protected by the Federal Confidentiality of Alcohol and Drug Abuse Patient Records regulations: The Federal rules restrict any use of the information to criminally investigate or prosecute any alcohol or drug abuse patient.[facility] RehabilitationIn the event this information is protected by the Federal Confidentiality of Alcohol and Drug Abuse Patient Records regulations: The Federal rules restrict any use of the information to criminally investigate or prosecute any alcohol or drug abuse patient.[facility] RehabilitationIn the event this information is protected by the Federal Confidentiality of Alcohol and Drug Abuse Patient Records regulations: The Federal rules restrict any use of the information to criminally investigate or prosecute any alcohol or drug abuse patient.[facility] RehabilitationIn the event this information is protected by the Federal Confidentiality of Alcohol and Drug Abuse Patient Records regulations: The Federal rules restrict any use of the information to criminally investigate or prosecute any alcohol or drug abuse patient.[facility] RehabilitationIn the event this information is protected by the Federal Confidentiality of Alcohol and Drug Abuse Patient Records regulations: The Federal rules restrict any use of the information to criminally investigate or prosecute any alcohol or drug abuse patient.[facility] RehabilitationIn the event this information is protected by the Federal Confidentiality of Alcohol and Drug Abuse Patient Records regulations: The Federal rules restrict any use of the information to criminally investigate or prosecute any alcohol or drug abuse patient.[facility] RehabilitationIn the event this information is protected by the Federal Confidentiality of Alcohol and Drug Abuse Patient Records regulations: The Federal rules restrict any use of the information to criminally investigate or prosecute any alcohol or drug abuse patient.[facility] RehabilitationIn the event this information is protected by the Federal Confidentiality of Alcohol and Drug Abuse Patient Records regulations: The Federal rules restrict any use of the information to criminally investigate or prosecute any alcohol or drug abuse patient.[facility] RehabilitationIn the event this information is protected by the Federal Confidentiality of Alcohol and Drug Abuse Patient Records regulations: The Federal rules restrict any use of the information to criminally investigate or prosecute any alcohol or drug abuse patient.[facility] RehabilitationIn the event this information is protected by the Federal Confidentiality of Alcohol and Drug Abuse Patient Records regulations: The Federal rules restrict any use of the information to criminally investigate or prosecute any alcohol or drug abuse patient.[facility] RehabilitationIn the event this information is protected by the Federal Confidentiality of Alcohol and Drug Abuse Patient Records regulations: The Federal rules restrict any use of the information to criminally investigate or prosecute any alcohol or drug abuse patient.[facility] RehabilitationIn the event this information is protected by the Federal Confidentiality of Alcohol and Drug Abuse Patient Records regulations: The Federal rules restrict any use of the information to criminally investigate or prosecute any alcohol or drug abuse patient.[facility] RehabilitationIn the event this information is protected by the Federal Confidentiality of Alcohol and Drug Abuse Patient Records regulations: The Federal rules restrict any use of the information to criminally investigate or prosecute any alcohol or drug abuse patient.[facility] RehabilitationIn the event this information is protected by the Federal Confidentiality of Alcohol and Drug Abuse Patient Records regulations: The Federal rules restrict any use of the information to criminally investigate or prosecute any alcohol or drug abuse patient.[facility] RehabilitationIn the event this information is protected by the Federal Confidentiality of Alcohol and Drug Abuse Patient Records regulations: The Federal rules restrict any use of the information to criminally investigate or prosecute any alcohol or drug abuse patient.[facility] RehabilitationIn the event this information is protected by the Federal Confidentiality of Alcohol and Drug Abuse Patient Records regulations: The Federal rules restrict any use of the information to criminally investigate or prosecute any alcohol or drug abuse patient.[facility] RehabilitationIn the event this information is protected by the Federal Confidentiality of Alcohol and Drug Abuse Patient Records regulations: The Federal rules restrict any use of the information to criminally investigate or prosecute any alcohol or drug abuse patient.[facility] RehabilitationIn the event this information is protected by the Federal Confidentiality of Alcohol and Drug Abuse Patient Records regulations: The Federal rules restrict any use of the information to criminally investigate or prosecute any alcohol or drug abuse patient.[facility] RehabilitationIn the event this information is protected by the Federal Confidentiality of Alcohol and Drug Abuse Patient Records regulations: The Federal rules restrict any use of the information to criminally investigate or prosecute any alcohol or drug abuse patient.[facility] RehabilitationIn the event this information is protected by the Federal Confidentiality of Alcohol and Drug Abuse Patient Records regulations: The Federal rules restrict any use of the information to criminally investigate or prosecute any alcohol or drug abuse patient.[facility] RehabilitationIn the event this information is protected by the Federal Confidentiality of Alcohol and Drug Abuse Patient Records regulations: The Federal rules restrict any use of the information to criminally investigate or prosecute any alcohol or drug abuse patient.[facility] RehabilitationIn the event this information is protected by the Federal Confidentiality of Alcohol and Drug Abuse Patient Records regulations: The Federal rules restrict any use of the information to criminally investigate or prosecute any alcohol or drug abuse patient.[facility] RehabilitationIn the event this information is protected by the Federal Confidentiality of Alcohol and Drug Abuse Patient Records regulations: The Federal rules restrict any use of the information to criminally investigate or prosecute any alcohol or drug abuse patient.[facility] RehabilitationIn the event this information is protected by the Federal Confidentiality of Alcohol and Drug Abuse Patient Records regulations: The Federal rules restrict any use of the information to criminally investigate or prosecute any alcohol or drug abuse patient.[facility] Reason for Visit (unrecogniz ed section and content) Reason Comments PT Discharge Specialty Diagnoses / Procedures Referred By Contac t Referred To Contact [facility] Diagnoses Chronic bilateral low back pain with bilateral sciatica History of lumbar fusion Procedures CONSULT TO PHYSICAL THERAPY PHYSICAL THERAPY EVALUATION HIGH COMPLEX 45 MINS Bianca Denise, DO [address] [place] [address] [facility] [place] [address] [place] [address] Referral ID Status Reason Start Date Expiration Date Visits Requested Visits Authorized [id number] Authorized Auto-Generat ed Referral 10/03/2023 10/02/2024 99 99 Reason Comments Low Back Pain Sciatica Specialty Diagnoses / Procedures Referred By Contac t Referred To Contact [facility] Diagnoses Chronic pain syndrome Systemic lupus erythematosus, unspecified SLE type, unspecified organ involvement status (HCC) Numbness and tingling of foot Anxiety and depression Polyneuropathy, unspecified Chronic bilateral low back pain with bilateral sciatica Procedures CONSULT FOR ACUPUNCTURE ACUPUNCTURE 1/> NDLS W/ELEC STIMJ 1ST 15 MIN ACUP 1/> NDLS W/ELEC STIMJ EA 15 MIN W/RE-INSJ Katelyn Fernandez PA-C [address] [place] [address] [facility] [address] [place] [address] Referral ID Status Reason Start Date Expiration Date V isits Requested Visits Authorized [id number] Authorized 10/03/2023 10/02/2024 12 12 Reason Comments Follow Up Specialty Diagnoses / Procedures Referred By Contac t Referred To Contact Diagnoses Other amyloidosis (HCC) Overweight Smoldering multiple myeloma Procedures ENDOCRINE MEDICAL WEIGHT MANAGEMENT OFFICE/OUTPATIENT NEW HIGH MDM 60 MINUTES Philippe Dawson, DAGOBERTO.DISTRICT RESOURCE OFFICER [address] [place] [id number] Referral ID Status Reason Start Date Expiration Date V isits Requested Visits Authorized [id number] Closed PCP Requested Referral 04/06/2024 04/06/2025 1 1 Reason Comments Sleep Apnea Specialty Diagnoses / Procedures Referred By Contac t Referred To Contact Diagnoses MARCELINA (obstructive sleep apnea) Procedures PROVIDER ORDERED FOLLOW UP OFFICE/OUTPATIENT NEW HIGH MDM 60 MINUTES Shavon Dawkins, DAGOBERTO.DISTRICT RESOURCE OFFICER [address] [place] [address] Referral ID Status Reason Start Date Expiration Date V isits Requested Visits Authorized [id number] Closed PCP Requested Referral 06/05/2024 03/05/2025 1 1 Reason Comments New Patient Specialty Diagnoses / Procedures Referred By Contac t Referred To Contact Diagnoses MARCELINA (obstructive sleep apnea) Procedures CONSULT TO SLEEP MEDICINE - ADULT OFFICE/OUTPATIENT [facility] 60-74 MINUTES Jacqueline Larson DEICER REPAIRER PNEUMATIC.DISTRICT RESOURCE OFFICER [address] [place] [address] Referral ID Status Reason Start Date Expiration Date Visits Requested Visits Authorized [id number] Pending Review PCP Requested Referral 07/23/2023 1 1 Reason Comments Follow Up Reason Comments Results Reason Comments Medication Problem Reason Onset Date Comments Population Health Navigation Outreach 02/17/2022 [employer] Care Gaps Reason Comments Received Outside Medical Records [facility] Reason Comments Radio Gen [id number] Specialty Diagnoses / Procedures Referred By Contac t Referred To Contact XR IMAGING Diagnoses Gammopathy Small fiber neuropathy Monoclonal paraproteinemia Procedures XR BONE SURVEY ROUTINE RADIOLOGIC EXAMINATION OSSEOUS SURVEY COMPL Philippe Dawson, DEICER REPAIRER PNEUMATIC.DISTRICT RESOURCE OFFICER [address] [place] [address] Xr Imaging Referral ID Status Reason Start Date Expiration Date V isits Requested Visits Authorized [id number] Closed Auto-Generate d Referral 02/25/2022 03/27/2023 1 1 Reason Comments Consult Specialty Diagnoses / Procedures Referred By Contac t Referred To Contact Diagnoses Small fiber neuropathy Gammopathy Procedures CONSULT TO HEMATOLOGY/ONCOLOGY OFFICE/OUTPATIENT [facility] 60-74 MINUTES Pat Seo MD [address] [place] [address] Referral ID Status Reason Start Date Expiration Date Visits Requested Visits Authorized [id number] Pending Review PCP Requested Referral 01/28/2022 01/28/2023 1 1 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 Onset Date Comments Refill Request 03/11/2022 Reason Comments Results Patient Conference Referral Information Reason Comments New Patient oral mass Reason Comments Mass Pt feels that it is fluid Reason Onset Date Comments Refill Request 05/29/2022 Reason Comments Established Patient Reason Onset Date Comments Refill Request 06/09/2022 Specialty Diagnoses / Procedures Referred By Contac t Referred To Contact CT IMAGING Diagnoses 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) Procedures CT WHOLE BODY SKULL TO KNEE WO IVCON UNLISTED COMPUTED TOMOGRAPHY PROCEDURE Philippe Dawson APRN.DISTRICT RESOURCE OFFICER [address] [place] [address] Ct Imaging Referral ID Status Reason Start Date Expiration Date V isits Requested Visits Authorized [id number] Closed Auto-Generate d Referral 06/04/2022 06/27/2023 1 1 Reason Comments New Pain Numbness Specialty Diagnoses / Procedures Referred By Contac t Referred To Contact Orthopedics Diagnoses Right arm pain Procedures CONSULT TO ORTHOPAEDICS OFFICE/OUTPATIENT NEW HIGH MDM 60-74 MINUTES Kathya Aviles APRN.DISTRICT RESOURCE OFFICER [address] [place] [address] Referral ID Status Reason Start Date Expiration Date Visits Requested Visits Authorized [id number] Pending Review PCP Requested Referral 07/01/2022 07/01/2023 1 1 Reason Onset Date Comments Refill Request 07/21/2022 Reason Comments Obesity Specialty Diagnoses / Procedures Referred By Contac t Referred To Contact Diagnoses Obesity, Class III, BMI 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) (HCC) Diastasis recti Procedures CONSULT [facility] OFFICE/OUTPATIENT [facility] 60-74 MINUTES Edinson Zarate MD [address] [place] [address] Referral ID Status Reason Start Date Expiration Date Visits Requested Visits Authorized [id number] Pending Review PCP Requested Referral 05/20/2022 05/20/2023 1 1 Reason Comments Results Reason Comments Results CT chest Patient Conference Reason Comments Covid19 Concern Reason Comments Received Outside Medical Records Chest x ray Reason Comments Received Outside Medical Records [facility] 08/30/22 Reason Comments Covid Follow Up Reason Comments Patient Question Reason Comments New Patient Covid Follow Up Reason Comments PAP Rx Reason Comments PAP Mask Rx Reason Comments Spirometry Specialty Diagnoses / Procedures Referred By Contac t Referred To Contact [facility] Diagnoses Post-COVID chronic dyspnea Procedures OXIMETRY WITH AMBULATION NONINVASIVE EAR/PULSE OXIMETRY Loraine Resendiz, MD [address] [place] [address] [facility] [place] [phone] Referral ID Status Reason Start Date Expiration Date V isits Requested Visits Authorized [id number] Closed Auto-Generate d Referral 09/13/2022 10/13/2023 1 1 Specialty Diagnoses / Procedures Referred By Contac t Referred To [facility] [place] Diagnoses Dyspnea and respiratory abnormalities Procedures LUNG DIFFUSION CAPACITY (DLCO) [place] [address] [place], [place] [id number] [facility] [place] [phone] Referral ID Status Reason Start Date Expiration Date V isits Requested Visits Authorized [id number] Closed Auto-Generate d Referral 08/31/2022 09/30/2023 1 1 Specialty Diagnoses / Procedures Referred By Contac t Referred To [facility] [place] Diagnoses Post-COVID chronic dyspnea Procedures LUNG VOLUMES Loraine Holcomb MD [address] [place] [address] [address] Referral ID Status Reason Start Date Expiration Date V isits Requested Visits Authorized [id number] Closed Auto-Generate d Referral 09/13/2022 10/13/2023 1 1 Specialty Diagnoses / Procedures Referred By Contac t Referred To [facility] [place] Diagnoses Post-COVID chronic dyspnea Procedures SPIROMETRY WITH DILATOR IF OBSTRUCTED BRNCDILAT RSPSE SPMTRY PRE&POST-BRNCDILAT ADMN Loraine Holcomb MD [address] [place] [address] [facility] [place] [phone] Referral ID Status Reason Start Date Expiration Date V isits Requested Visits Authorized [id number] Closed Auto-Generate d Referral 09/13/2022 10/13/2023 1 1 Specialty Diagnoses / Procedures Referred By Contac t Referred To [facility] [place] Diagnoses MONACO (dyspnea on exertion) Procedures MIPS/MEPS UNLISTED PULMONARY SERVICE/PROCEDURE Loraine Holcomb MD [address] [place] [address] [facility] [place]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 [address] [place] [address] PCP - General Family Medicine 04/15/21 Philippe Dawson APRN.DISTRICT RESOURCE OFFICER [address] [place] [address] Hematology/Oncology 11/17/23 Professional Skater Relationship Specialty Start Date End Date Edinson Zarate MD [address] [facility] [address] [place], [place] [address] PCP - General Family Medicine 04/15/21 Philippe Dawson APRN.DISTRICT RESOURCE OFFICER [address] [place] [address] Hematology/Oncology 11/17/23 Professional Skater Relationship Specialty Start Date End Date Edinson Zarate MD [address] [facility] [address] [place], [place] 9[address] PCP - General Family Medicine 04/15/21 Philippe Dawson, DEICER REPAIRER PNEUMATIC.DISTRICT RESOURCE OFFICER [address] [place] [address] Hematology/Oncology 11/17/23 Professional Skater Relationship Specialty Start Date End Date Edinson Zarate MD [address] [facility] [address] [place], [place] [address] PCP - General Family Medicine 04/15/21 Philippe Dawson, DEICER REPAIRER PNEUMATIC.DISTRICT RESOURCE OFFICER [address] [place], [place] [address] [address] Hematology/Oncology 11/17/23 Professional Skater Relationship Specialty Start Date End Date Edinson Zarate MD [address] [facility] [address] [place] [address] PCP - General Family Medicine 04/15/21 Philippe Dawson APRN.DISTRICT RESOURCE OFFICER [address] [place] [address] Hematology/Oncology 11/17/23 Professional Skater Relationship Specialty Start Date End Date Edinson Zarate MD [address] [facility] [address] [place], [place] [address] PCP - General Family Medicine 04/15/21 Philippe Dawson APRN.DISTRICT RESOURCE OFFICER [address] [place] [address] Hematology/Oncology 11/17/23 Professional Skater Relationship Specialty Start Date End Date Edinson Zarate MD [address] [facility] [address] [place], [place] [address] PCP - General Family Medicine 04/15/21 Philippe Dawson, DEICER REPAIRER PNEUMATIC.DISTRICT RESOURCE OFFICER [address] [place] [address] Hematology/Oncology 11/17/23 Professional Skater Relationship Specialty Start Date End Date Edinson Zarate MD [address] [facility] [address] [place], [place] [address] PCP - General Family Medicine 04/15/21 Philippe Dawson, DEICER REPAIRER PNEUMATIC.DISTRICT RESOURCE OFFICER [address] [address] [place], [place] [address] [address] Hematology/Oncology 11/17/23 Professional Skater Relationship Specialty Start Date End Date Edinson Zarate MD [address] [facility] [address] [place] [id number] PCP - General Family Medicine 04/15/21 Philippe Dawson APRN.DISTRICT RESOURCE OFFICER [address] [place] [address] Hematology/Oncology 11/17/23 Professional Skater Relationship Specialty Start Date End Date Edinson Zarate MD [address] [facility] [address] [place], [place] 137821 PCP - General Family Medicine 04/15/21 Philippe Dawson APRN.DISTRICT RESOURCE OFFICER [address] [place] [address] 39375 Hematology/Oncology 11/17/23 Professional Skater Relationship Specialty Start Date End Date Edinson Zarate MD [address] [facility] [address] [place], [place] 504131 PCP - General Family Medicine 04/15/21 Philippe Dawson, DEICER REPAIRER PNEUMATIC.DISTRICT RESOURCE OFFICER [address] [place] [address] 55151 Hematology/Oncology 11/17/23 Professional Skater Relationship Specialty Start Date End Date Edinson Zarate MD [address] [facility] [address] [place], [place] 419451 PCP - General Family Medicine 04/15/21 Philippe Dawson, DEICER REPAIRER PNEUMATIC.DISTRICT RESOURCE OFFICER [address] [place], [place] [address]Ag[place]in [place] [address] Hematology/Oncology 11/17/23 Professional Skater Relationship Specialty Start Date End Date Edinson Zarate MD [address] [facility] [address] [place] [id number] PCP - General Family Medicine 04/15/21 Philippe Dawson APRN.DISTRICT RESOURCE OFFICER [address] [place] [address] Hematology/Oncology 11/17/23 Professional Skater Relationship Specialty Start Date End Date Edinson Zarate MD [address] [facility] [address] [place] [address] PCP - General Family Medicine 04/15/21 Philippe Dawson APRN.DISTRICT RESOURCE OFFICER [address] [place] [address] 99027 Hematology/Oncology 11/17/23 Professional Skater Relationship Specialty Start Date End Date Edinson Zarate MD [address] [facility] [address] [place], [place] 721461 PCP - General Family Medicine 04/15/21 Philippe Dawson, DEICER REPAIRER PNEUMATIC.DISTRICT RESOURCE OFFICER [address] [place] [address] 34338 Hematology/Oncology 11/17/23 Professional Skater Relationship Specialty Start Date End Date Edinson Zarate MD [address] [facility] [address] [place], [place] 658261 PCP - General Family Medicine 04/15/21 Philippe Dawson, DEICER REPAIRER PNEUMATIC.DISTRICT RESOURCE OFFICER [address] [place], [place] [address]in [place] [address] Hematology/Oncology 11/17/23 Professional Skater Relationship Specialty Start Date End Date Edinson Zarate MD [address] [facility] [address] [place] 167511 PCP - General Family Medicine 04/15/21 Philippe Dawson APRN.DISTRICT RESOURCE OFFICER [address] [place] [address] Hematology/Oncology 11/17/23 Professional Skater Relationship Specialty Start Date End Date Edinson Zarate MD [address] [facility] [address] [place], [place] 870991 PCP - General Family Medicine 04/15/21 Philippe Dawson APRN.DISTRICT RESOURCE OFFICER [address] [place] [address] 09479 Hematology/Oncology 11/17/23 Professional Skater Relationship Specialty Start Date End Date Edinson Zarate MD [address] [facility] [address] [place], [place] 042541 PCP - General Family Medicine 04/15/21 Philippe Dawson, DEICER REPAIRER PNEUMATIC.DISTRICT RESOURCE OFFICER [address] [place] [address] 33608 Hematology/Oncology 11/17/23 Professional Skater Relationship Specialty Start Date End Date Edinson Zarate MD [address] [facility] [address] [place], [place] 438971 PCP - General Family Medicine 04/15/21 Philippe Dawson, DEICER REPAIRER PNEUMATIC.DISTRICT RESOURCE OFFICER [address] [place], [place] [address]in [place] [address] Hematology/Oncology 11/17/23 Professional Skater Relationship Specialty Start Date End Date Edinson Zarate MD [address] [facility] [address] [place] 63[address] PCP - General Family Medicine 04/15/21 Philippe Dawson APRN.DISTRICT RESOURCE OFFICER [address] [place] [address] Hematology/Oncology 11/17/23 Professional Skater Relationship Specialty Start Date End Date Edinson Zarate MD [address] [facility] [address] [place], [place] 240911 PCP - General Family Medicine 04/15/21 Philippe Dawson APRN.DISTRICT RESOURCE OFFICER [address] [place] [address] 78488 Hematology/Oncology 11/17/23 Professional Skater Relationship Specialty Start Date End Date Edinson Zarate MD [address] [facility] [address] [place], [place] 813511 PCP - General Family Medicine 04/15/21 Philippe Dawson, DEICER REPAIRER PNEUMATIC.DISTRICT RESOURCE OFFICER [address] [place] [address] 78539 Hematology/Oncology 11/17/23 Professional Skater Relationship Specialty Start Date End Date Edinson Zarate MD [address] [facility] [address] [place], [place] 773571 PCP - General Family Medicine 04/15/21 Philippe Dawson, DEICER REPAIRER PNEUMATIC.DISTRICT RESOURCE OFFICER [address] [place], [place] [address]Ag[place]in [place] [address] Hematology/Oncology 11/17/23 Professional Skater Relationship Specialty Start Date End Date Edinson Zarate MD [address] [facility] [address] [place] 315971 PCP - General Family Medicine 04/15/21 Philippe Dawson APRN.DISTRICT RESOURCE OFFICER [address] [place] [address] Hematology/Oncology 11/17/23 Professional Skater Relationship Specialty Start Date End Date Edinson Zarate MD [address] [facility] [address] [place], [place] 950241 PCP - General Family Medicine 04/15/21 Philippe Dawson APRN.DISTRICT RESOURCE OFFICER [address] [place] [address] 73673 Hematology/Oncology 11/17/23 Professional Skater Relationship Specialty Start Date End Date Edinson Zarate MD [address] [facility] [address] [place], [place] 490071 PCP - General Family Medicine 04/15/21 Philippe Dawson, DEICER REPAIRER PNEUMATIC.DISTRICT RESOURCE OFFICER [address] [place] [address] 13888 Hematology/Oncology 11/17/23 Professional Skater Relationship Specialty Start Date End Date Edinson Zarate MD [address] [facility] [address] [place], [place] 566051 PCP - General Family Medicine 04/15/21 Philippe Dawson, DEICER REPAIRER PNEUMATIC.DISTRICT RESOURCE OFFICER [address] [place], [place] [address] [address] Hematology/Oncology 11/17/23 Professional Skater Relationship Specialty Start Date End Date Edinson Zarate MD [address] [facility] [address] [place] 293361 PCP - General Family Medicine 04/15/21 Philippe Dawson APRN.DISTRICT RESOURCE OFFICER [id number] [place], [place] [address]Ag[place] [address] Hematology/Oncology 11/17/23 Professional Skater Relationship Specialty Start Date End Date Edinson Zarate MD [address] [facility] [address] [place], [place] 042571 PCP - General Family Medicine 04/15/21 Philippe Dawson APRN.DISTRICT RESOURCE OFFICER [address] [place] [address] 96420 Hematology/Oncology 11/17/23 Professional Skater Relationship Specialty Start Date End Date Edinson Zarate MD [address] [facility] [address] [place], [place] 452871 PCP - General Family Medicine 04/15/21 Philippe Dawson, DAGOBERTO.DISTRICT RESOURCE OFFICER [address] [place], [place] [address]IE [place] [address] Hematology/Oncology 11/17/23 Professional Skater Relationship Specialty Start Date End Date Edinson Zarate MD [address] [facility] [address] [place], [place] 407531 PCP - General Family Medicine 04/15/21 Professional Skater Relationship Specialty Start Date End Date Edinson Zarate MD [address] [facility] [address] [place], [place] 210961 PCP - General Family Medicine 04/15/21 Philippe Dawson APRN.DISTRICT RESOURCE OFFICER [address] [place], [place] [address] [address] Hematology/Oncology 11/17/23 Professional Skater Relationship Specialty Start Date End Date Edinson Zarate MD [address] [facility] [address] [place], [place] 309351 PCP - General Family Medicine 04/15/21 Philippe Dawson APRN.DISTRICT RESOURCE OFFICER [address] [place], [place] [address] Hematology/Oncology 11/17/23 Professional Skater Relationship Specialty Start Date End Date Edinson Zarate MD [address] [facility] [address] [place], [place] 164011 PCP - General Family Medicine 04/15/21 Philippe Dawson APRN.DISTRICT RESOURCE OFFICER [address] [place], [place] 476[address] Hematology/Oncology 11/17/23 Professional Skater Relationship Specialty Start Date End Date Edinson Zarate MD [address] [facility] [address] [place], [place] 156651 PCP - General Family Medicine 04/15/21 Professional Skater Relationship Specialty Start Date End Date Edinson Zarate MD [address] [facility] [address] [place], [place] 127161 PCP - General Family Medicine 04/15/21 Philippe Dawson APRN.DISTRICT RESOURCE OFFICER [address] [place] [address] 49299 Hematology/Oncology 11/17/23 Professional Skater Relationship Specialty Start Date End Date Edinson Zarate MD [address] [facility] [address] [place], [place] 745701 PCP - General Family Medicine 04/15/21 Professional Skater Relationship Specialty Start Date End Date Edinson Zarate MD [address] [facility] [address] [place], [place] 61009281 PCP - General Family Medicine 04/15/21 Philippe Dawson APRN.DISTRICT RESOURCE OFFICER [address] [place] [address] 02898 Hematology/Oncology 11/17/23 Professional Skater Relationship Specialty Start Date End Date Edinson Zarate MD [address] [place] [address] [address] [place], [place] 550661 PCP - General Family Medicine 04/15/21 Philippe Dawson APRN.DISTRICT RESOURCE OFFICER [address] [place], [place] [address] Hematology/Oncology 11/17/23 Professional Skater Relationship Specialty Start Date End Date Edinson Zarate MD [address] [place] [address] [address] [place], [place] 093901 PCP - General Family Medicine 04/15/21 Philippe Dawson APRN.DISTRICT RESOURCE OFFICER [address] [place] [address] 70879 Hematology/Oncology 11/17/23 Professional Skater Relationship Specialty Start Date End Date Edinson Zarate MD [address] [facility] [address] [place], [place] 63784281 PCP - General Family Medicine 04/15/21 Philippe Dawson APRN.DISTRICT RESOURCE OFFICER [address] [place] [address] 11555 Hematology/Oncology 11/17/23 Professional Skater Relationship Specialty Start Date End Date Edinson Zarate MD [address] [facility] [address] [place], [place] 80776281 PCP - General Family Medicine 04/15/21 Philippe Dawson APRN.DISTRICT RESOURCE OFFICER [address] [place] [address] 60478 Hematology/Oncology 11/17/23 Professional Skater Relationship Specialty Start Date End Date Edinson Zarate MD [address] [place] [address] [address] [place], [place] 913921 PCP - General Family Medicine 04/15/21 Philippe Dawson APRN.DISTRICT RESOURCE OFFICER [address] [place], [place] 476[address]06 Hematology/Oncology 11/17/23 Professional Skater Relationship Specialty Start Date End Date Edinson Zarate MD [address] [place] [address] DR [place], [place] 859681 PCP - General Family Medicine 04/15/21 Philippe Dawson APRN.DISTRICT RESOURCE OFFICER [address] [place] [address] 20879 Hematology/Oncology 11/17/23 Professional Skater Relationship Specialty Start Date End Date Edinson Zarate MD [address] [facility] [address] [place], [place] 02783281 PCP - General Family Medicine 04/15/21 Philippe Dawson APRN.DISTRICT RESOURCE OFFICER [address] [place] [address] 52290 Hematology/Oncology 11/17/23 Professional Skater Relationship Specialty Start Date End Date Edinson Zarate MD [address] [facility] [address] [place], [place] 93903281 PCP - General Family Medicine 04/15/21 Philippe Dawson APRN.DISTRICT RESOURCE OFFICER [address] [place] [address] 57428 Hematology/Oncology 11/17/23 Professional Skater Relationship Specialty Start Date End Date Edinson Zarate MD [address] [place] [address] [address] [place], [place] 765831 PCP - General Family Medicine 04/15/21 Philippe Dawson APRN.DISTRICT RESOURCE OFFICER [address] [place], [place] 4761606 Hematology/Oncology 11/17/23 Professional Skater Relationship Specialty Start Date End Date Edinson Zarate MD [address] [place] [address] DR [place], [place] 814151 PCP - General Family Medicine 04/15/21 Philippe Dawson APRN.DISTRICT RESOURCE OFFICER [address] [place] [address] 03328 Hematology/Oncology 11/17/23 Professional Skater Relationship Specialty Start Date End Date Edinson Zarate MD [address] [facility] [address] [place], [place] 57153281 PCP - General Family Medicine 04/15/21 Philippe Dawson APRN.DISTRICT RESOURCE OFFICER [address] [place] [address] 71706 Hematology/Oncology 11/17/23 Layo Chan, DAGOBERTO.DISTRICT RESOURCE OFFICER [address] [facility] [address] [place], [place] 044051 Machine Sand Mixer Internal Medicine 09/09/24 Professional Skater Relationship Specialty Start Date End Date Edinson Zarate MD [address] [facility] [address] [place], [place] 729041 PCP - General Family Medicine 04/15/21 Philippe Dawson APRN.DISTRICT RESOURCE OFFICER [address] [place] [address] Hematology/Oncology 11/17/23 Layo Chan, DEICER REPAIRER PNEUMATIC.DISTRICT RESOURCE OFFICER [address] [facility] [address] [place], [place] 900481 [facility] Internal Medicine 09/09/24 Professional Skater Relationship Specialty Start Date End Date Edinson Zarate MD [address] [facility] [address] [place], [place] 993431 PCP - General Family Medicine 04/15/21 Philippe Dawson APRN.DISTRICT RESOURCE OFFICER [address] [place] [address] Hematology/Oncology 11/17/23 Layo Chan DEICER REPAIRER PNEUMATIC.DISTRICT RESOURCE OFFICER [address] [facility] [address] [place], [place] 61641281 [facility] Internal Medicine 09/09/24 Professional Skater Relationship Specialty Start Date End Date Edinson Zarate MD [address] [facility] [address] [place], [place] 416041 PCP - General Family Medicine 04/15/21 Philippe Dawson APRN.DISTRICT RESOURCE OFFICER [address] [place] [address] 65317 Hematology/Oncology 11/17/23 Layo Chan APRN.DISTRICT RESOURCE OFFICER [address] [facility] [address] [place], [place] 275931 Machine Sand Mixer Internal Medicine 09/09/24 Professional Skater Relationship Specialty Start Date End Date Edinson Zarate MD [address] [facility] [address] [place], [place] 333101 PCP - General Family Medicine 04/15/21 Philippe Dawson APRN.DISTRICT RESOURCE OFFICER [address] [place], [place] [address] [address] Hematology/Oncology 11/17/23 Layo Chan APRN.DISTRICT RESOURCE OFFICER [address] [facility] [address] [place], [place] 988451 Machine Sand Mixer Internal Medicine 09/09/24 Professional Skater Relationship Specialty Start Date End Date Edinson Zarate MD [address] [facility] [address] [place], [place] 121931 PCP - General Family Medicine 04/15/21 Philippe Dawson APRN.DISTRICT RESOURCE OFFICER [address] [place] [address] 70527 Hematology/Oncology 11/17/23 Layo Chan APRN.DISTRICT RESOURCE OFFICER [address] [facility] [address] [place], [place] 181861 Machine Sand Mixer Internal Medicine 09/09/24 Professional Skater Relationship Specialty Start Date End Date Edinson Zarate MD [address] [facility] [address] [place], [place] 897371 PCP - General Family Medicine 04/15/21 Philippe Dawson APRN.DISTRICT RESOURCE OFFICER [address] [place] [address] 54532 Hematology/Oncology 11/17/23 Layo Chan APRN.DISTRICT RESOURCE OFFICER [address] [facility] [address] [place], [place] 333271 Machine Sand Mixer Internal Medicine 09/09/24 Professional Skater Relationship Specialty Start Date End Date Edinson Zarate MD [address] [facility] [address] [place], [place] 724681 PCP - General Family Medicine 04/15/21 Philippe Dawson APRN.DISTRICT RESOURCE OFFICER [address] [place], [place] [address] [address] Hematology/Oncology 11/17/23 Layo Chan APRN.DISTRICT RESOURCE OFFICER [address] [facility] [address] [place], [place] 525531 Machine Sand Mixer Internal Medicine 09/09/24 Professional Skater Relationship Specialty Start Date End Date Edinson Zarate MD [address] [facility] [address] [place], [place] 261071 PCP - General Family Medicine 04/15/21 Philippe Dawson APRN.DISTRICT RESOURCE OFFICER [address] [place], [place] [address] [address] Hematology/Oncology 11/17/23 Layo Chan APRN.DISTRICT RESOURCE OFFICER [address] [facility] [place] [address] Machine Sand Mixer Internal Medicine 09/09/24 Professional Skater Relationship Specialty Start Date End Date Edinson Zarate MD [address] [facility] [address] [place], [place] 649541 PCP - General Family Medicine 04/15/21 Philippe Dawson APRN.DISTRICT RESOURCE OFFICER [address] [place], [place] [address] [address] Hematology/Oncology 11/17/23 Layo Chan APRN.DISTRICT RESOURCE OFFICER [address] [facility] [place] [address] Machine Sand Mixer Internal Medicine 09/09/24 Professional Skater Relationship Specialty Start Date End Date Edinson Zarate MD [address] [facility] [place] [address] PCP - General Family Medicine 04/15/21 Philippe Dawson APRN.DISTRICT RESOURCE OFFICER [address] [place] [address] [place] [address] Hematology/Oncology 11/17/23 Layo Chan DEICER REPAIRER PNEUMATIC.DISTRICT RESOURCE OFFICER [address] [facility] [place] [address] Machine Sand Mixer Internal Medicine 09/09/24 Professional Skater Relationship Specialty Start Date End Date Edinson Zarate MD [address] [facility] [address] [place], [place] [id number] PCP - General Family Medicine 04/15/21 Philippe Dawson APRN.DISTRICT RESOURCE OFFICER [address] [place], [place] [address] [address] Hematology/Oncology 11/17/23 Layo Chan, DEICER REPAIRER PNEUMATIC.DISTRICT RESOURCE OFFICER [address] [facility] [address] [place], [place] 048[address] Machine Sand Mixer Internal Medicine 09/09/24 Professional Skater Relationship Specialty Start Date End Date Edinson Zarate MD [address] [facility] [address] [place], [place] 680991 PCP - General Family Medicine 04/15/21 Philippe Dawson APRN.DISTRICT RESOURCE OFFICER [address] [place] [address] Hematology/Oncology 11/17/23 Layo Chan, DEICER REPAIRER PNEUMATIC.DISTRICT RESOURCE OFFICER [address] [facility] [address] [place], [place] 994[address] [facility] Internal Medicine 09/09/24 Professional Skater Relationship Specialty Start Date End Date Edinson Zarate MD [address] [facility] [address] [place], [place] 744741 PCP - General Family Medicine 04/15/21 Philippe Dawson APRN.DISTRICT RESOURCE OFFICER [address] [place] [address] Hematology/Oncology 11/17/23 Layo Chan, DEICER REPAIRER PNEUMATIC.DISTRICT RESOURCE OFFICER [address] [facility] [address] [place], [place] 49067281 [facility] Internal Medicine 09/09/24 Professional Skater Relationship Specialty Start Date End Date Eidnson Zarate MD [address] [facility] [address] [place], [place] [id number] PCP - General Family Medicine 04/15/21 Philippe Dawson APRN.DISTRICT RESOURCE OFFICER [address] [place] [address] 75130 Hematology/Oncology 11/17/23 Layo Chan APRN.DISTRICT RESOURCE OFFICER [address] [facility] [address] [place], [place] 323941 Machine Sand Mixer Internal Medicine 09/09/24 Professional Skater Relationship Specialty Start Date End Date Edinson Zarate MD [address] [facility] [address] [place], [place] 234051 PCP - General Family Medicine 04/15/21 Philippe Dawson APRN.DISTRICT RESOURCE OFFICER [address] [place], [place] [address] [address] Hematology/Oncology 11/17/23 Layo Chan APRN.DISTRICT RESOURCE OFFICER [address] [facility] [address] [place], [place] 153101 Machine Sand Mixer Internal Medicine 09/09/24 Professional Skater Relationship Specialty Start Date End Date Edinson Zarate MD [address] [facility] [address] [place], [place] 202551 PCP - General Family Medicine 04/15/21 Philippe Dawson APRN.DISTRICT RESOURCE OFFICER [address] [place] [address] 95704 Hematology/Oncology 11/17/23 Layo Chan APRN.DISTRICT RESOURCE OFFICER [address] [facility] [address] [place], [place] 671181 Machine Sand Mixer Internal Medicine 09/09/24 Professional Skater Relationship Specialty Start Date End Date Edinson Zarate MD [address] [facility] [address] [place], [place] 865101 PCP - General Family Medicine 04/15/21 Philippe Dawson APRN.DISTRICT RESOURCE OFFICER [address] [place] [address] 44051 Hematology/Oncology 11/17/23 Layo Chan APRN.DISTRICT RESOURCE OFFICER [address] [facility] [address] [place], [place] 933711 Machine Sand Mixer Internal Medicine 09/09/24 Professional Skater Relationship Specialty Start Date End Date Edinson Zarate MD [address] [facility] [address] [place], [place] 436901 PCP - General Family Medicine 04/15/21 Philippe Dawson APRN.DISTRICT RESOURCE OFFICER [address] [place], [place] [address] [address] Hematology/Oncology 11/17/23 Layo Chan APRN.DISTRICT RESOURCE OFFICER [address] [facility] [address] [place], [place] 679911 Machine Sand Mixer Internal Medicine 09/09/24 Professional Skater Relationship Specialty Start Date End Date Edinson Zarate MD [address] [facility] [address] [place], [place] 806591 PCP - General Family Medicine 04/15/21 Philippe Dawson APRN.DISTRICT RESOURCE OFFICER [address] [place], [place] [address] [address] Hematology/Oncology 11/17/23 Layo Chan APRN.DISTRICT RESOURCE OFFICER [address] [facility] [place] [address] Machine Sand Mixer Internal Medicine 09/09/24 Catrachita Fermin RN [address] [place] [address] 30762 Specialty Patch Finisher 04/16/25 Professional Skater Relationship Specialty Start Date End Date Edinson Zarate MD [address] [facility] [place] [address] PCP - General Family Medicine 04/15/21 Philippe Dawson DEICER REPAIRER PNEUMATIC.DISTRICT RESOURCE OFFICER [address] [place] [address] 96545 Hematology/Oncology 11/17/23 Layo Chan DEICER REPAIRER PNEUMATIC.DISTRICT RESOURCE OFFICER [address] [facility] [place] [address] [facility] Internal Medicine 09/09/24 Catrachita Fermin RN [address] [place] [address] 75909 Specialty Patch Finisher 04/16/25 Professional Skater Relationship Specialty Start Date End Date Edinson Zarate MD [address] [facility] [place] [address] PCP - General Family Medicine 04/15/21 Philippe Dawson DEICER REPAIRER PNEUMATIC.DISTRICT RESOURCE OFFICER [address] [place] [address] 16393 Hematology/Oncology 11/17/23 Layo Chan DEICER REPAIRER PNEUMATIC.DISTRICT RESOURCE OFFICER [address] [facility] [place] [address] [facility] Internal Medicine 09/09/24 Catrachita Fermin, SANDRA [address] [place] [address] 74734 Specialty Patch Finisher 04/16/25 Professional Skater Relationship Specialty Start Date End Date Edinson Zarate MD [address] [facility] [address] [place], [place] 912081 PCP - General Family Medicine 04/15/21 Philippe Dawson DEICER REPAIRER PNEUMATIC.DISTRICT RESOURCE OFFICER [address] [place] [address] 28653 Hematology/Oncology 11/17/23 Layo Chan, DEICER REPAIRER PNEUMATIC.DISTRICT RESOURCE OFFICER [address] [facility] [address] [place], [place] 987581 Machine Sand Mixer Internal Medicine 09/09/24 Catrachita Fermin, SANDRA [address] [place] [address] 22019 Specialty Patch Finisher 04/16/25 Professional Skater Relationship Specialty Start Date End Date Edinson Zarate MD [address] [facility] [address] [place], [place] 804281 PCP - General Family Medicine 04/15/21 Philippe Dawson, DEICER REPAIRER PNEUMATIC.DISTRICT RESOURCE OFFICER [address] [place] [address] 71737 Hematology/Oncology 11/17/23 Layo Chan, DEICER REPAIRER PNEUMATIC.DISTRICT RESOURCE OFFICER [address] [facility] [address] [place], [place] [address] Machine Sand Mixer Internal Medicine 09/09/24 Catrachita Fermin, SANDRA [address] [place] [id number] Specialty Patch Finisher 04/16/25 Professional Skater Relationship Specialty Start Date End Date Edinson Zarate MD [address] [facility] [address] [place], [place] [id number] PCP - General Family Medicine 04/15/21 Philippe Dawson APRN.DISTRICT RESOURCE OFFICER [id number] [place], [place] [id number] Hematology/Oncology 11/17/23 Layo Chan APRN.DISTRICT RESOURCE OFFICER [address] [facility] [address] [place], [place] [id number] Machine Sand Mixer Internal Medicine 09/09/24 Catrachita Fermin, SANDRA [address] [place] [address] Specialty Patch Finisher 04/16/25 Goals (unrecognized section and content) Goals may be documented in a n alternate section FOR RECORDS PERTAINING TO PATIENTS WHO ARE OR HAVE BEEN ENROLLED IN A CHEMICAL DEPENDENCY/SUBSTANCEABUSE PROGRAM, SOME INFORMATION MAY BE OMITTED. This clinical summary was aggregated from multiple sources. Caution should be exercised in using it in the provision of clinical care. This summary normalizes information from multiple sources, and as a consequence, information in this document may materially change the coding, format and clinical context of patient data. In addition, data may be omitted in some cases. CLINICAL DECISIONS SHOULD BE BASED ON THE PRIMARY CLINICAL RECORDS. [email or web address] [facility]. provides no warranty or guarantee of the accuracy or completeness of information in this document.
--- NOTE | 2025-09-21 04:20 | ED.VIS.FALL ---
HPI HPI - Fall History of Present Illness Chief Complaint: Fall Narrative Narrative: Patient was seen and examined after presenting to ED for evaluation after hitting the back of his head when he took a step down in the garage she states that he normally ambulates with a walking stick because he has less than ideal balance at baseline. [facility] Medical History Amyloidosis Myeloma Lupus (systemic lupus erythematosus) Anemia Monoclonal paraproteinemia Seborrheic keratosis Congenital spondylolisthesis Lumbosacral neuritis Abnormal gait MARCELINA on CPAP HDL deficiency Prediabetes GERD (gastroesophageal reflux disease) Osteoarthritis Lupus Hypertension Anxiety and depression Home Medications ?Medication ?Instructions ?Recorded ?Last Taken ?Type azelastine 137 mcg (0.1 %) nasal 1 spray BID allergies 06/25/14 08/30/22 08:00 History spray bupropion HCl 150 mg tablet,12 hr 150 mg PO TID depression 06/25/14 08/30/22 12:00 History sustained-release fluticasone propionate 50 1 spray BID allergies 06/25/14 08/30/22 08:00 History mcg/actuation nasal spray,suspension lorazepam 1 mg tablet (Ativan) 1 mg PO BID PRN Anxiety 06/25/14 02/29/20 15:00 History risperidone 1 mg tablet 1 mg PO QHS sleep 06/25/14 08/29/22 22:00 History aspirin 81 mg tablet,delayed 81 mg PO DAILY@0800 30 days 06/26/14 08/30/22 08:00 Rx release metoprolol tartrate 25 mg tablet 50 mg PO DAILY blood pressure 11/30/17 08/30/22 08:00 History zolpidem 5 mg tablet 2 mg PO QHS PRN PRN Sleep 03/01/20 02/29/20 21:00 History amlodipine 5 mg tablet 5 mg PO DAILY 08/30/22 08/30/22 08:00 History ascorbic acid (vitamin C) (Vitamin 2 g PO Q6H 08/30/22 08/30/22 08:00 History C oral powder) duloxetine 60 mg capsule,delayed 60 mg PO BID 08/30/22 08/30/22 08:00 History release ferrous sulfate 325 mg (65 mg 325 mg PO DAILY 08/30/22 08/30/22 08:00 History iron) tablet (Iron (ferrous sulfate)) fexofenadine 180 mg tablet 180 mg PO DAILY 08/30/22 08/30/22 08:00 History hydrocodone-acetaminophen 5-325mg 1 tab PO Q8H PRN PRN PAIN 08/30/22 08/30/22 08:00 History 5mg-325mg hydroxychloroquine 200 mg tablet 200 mg PO BID 08/30/22 08/30/22 08:00 History meloxicam 15 mg tablet 15 mg PO DAILY 08/30/22 08/30/22 08:00 History pregabalin 225 mg capsule 225 mg BID 08/30/22 08/30/22 08:00 History tamsulosin 0.4 mg capsule 0.4 mg PO QHS 08/30/22 08/29/22 22:00 History Allergy/AdvReac Type Severity Reaction Status Date / Time niacin Allergy Other Verified 09/21/25 02:59 oseltamivir (From Tamiflu) Allergy Anaphylaxis Verified 09/21/25 02:59 Penicillins Allergy Rash Verified 09/21/25 02:59 povidone-iodine (From Allergy Other Verified 09/21/25 02:59 Betadine) pseudoephedrine HCl (From Allergy Anaphylaxis Verified 09/21/25 02:59 Sudafed) soap (From Betadine) Allergy Other Verified 09/21/25 02:59 soy Allergy Unknown Verified 09/21/25 02:59 trazodone Allergy Anaphylaxis Verified 09/21/25 02:59 Surgical History History of carpal tunnel surgery History of bilateral carpal tunnel release History of right shoulder replacement History of hip replacement H/O lumbosacral spine surgery Social History household members: spouse Smoking Status: Former smoker how long ago did patient quit smoking: Quit 43-44 yrs prior, smoked ~ 12 yrs 1 ppd until quit. alcohol intake: never substance use type: does not use ROS ROS ED ROS Narrative Pertinent Positives: Head injury neck stiffness Pertinent Negatives: Loss of consciousness use of anticoagulation blurred vision chest pain pressure shortness of breath inability to ambulate The remainder of review of systems negative unless otherwise stated in the HPI above. Systems reviewed including constitutional, psychiatric, cardiovascular, respiratory, integument, HENT, gastrointestinal. EXAM Physical Exam Narrative Exam Narrative: Airway is intact bilateral breath sounds intact and equal MSPs in all of his extremities. GCS of 15 blood pressure is also appropriate normocephalic he does have an abrasion with a small hematoma to the posterior portion of his scalp. No wound to repair. Tenderness in the paraspinal musculature of his neck but no midline tenderness nothing involving the thoracic or lumbar spine either chest abdomen and pelvis are all nontender pelvis is stable moves all extremities appropriately as he has full active range of motion Const Vital Signs: 09/21/25 02:57 09/21/25 03:01 Temperature 97.6 F L Temperature Source Oral Pulse Rate 60 Respiratory Rate 20 H Respiratory Effort Normal Non-Labored Respiratory Depth Normal Respiratory Pattern Normal Blood Pressure 183/81 H Blood Pressure Mean 115 Pulse Ox 91 Oxygen Delivery Method Room Air Room Air MDM MDM MDM Narrative Medical decision making narrative: Nursing notes, triage notes, available previous documentation, and vital signs were reviewed. Any discrepancies noted were addressed. Differential Diagnoses: Low suspicion for intracranial injury or skull fracture or cervical injury Imaging Reviewed: Personally reviewed and interpreted by me: CT head I do not see any obvious intracranial bleed official interpretation of the head was without acute pathology cervical spine showing cervical spondylitic degenerative changes with diffuse disc bulges inducing spinal canal and neural exit pathway compromise however he is able to move everything appropriately and has normal sensation Previous Documentation Reviewed: None available or applicable at this time. ED Course: Patient presenting with mechanical fall he has balance issues at baseline did not have his walking stick ended up injuring the back of his head has a hematoma workup here was otherwise unremarkable patient stable for discharge return precautions follow-up recommendations provided. This note was made utilizing voice recognition software. All attempts were made to correct spelling or other errors prior to note completion. However, due to the fast-paced nature of emergency medicine, some errors may still be present. Radiography Diagnostic Testing: Clinical Impression(s) from Imaging Studies Brain CT 09/21/25 03:06 IMPRESSION: Right posterior parietal scalp edema and hematoma noted. No acute cerebrovascular abnormalities. If clinical symptoms persist, further evaluation with MRI may be considered as clinically warranted. No intra or extra-axial acute hemorrhage. Bilateral cerebral microvascular ischemic changes with brain involutional changes. Reading Location: [id number] Cervical Spine CT 09/21/25 03:06 IMPRESSION: Straightened cervical curve denoting myospasm. No vertebral fractures, structural collapse or acute dislocation. Cervical spondylodegenerative changes with multilevel uncovertebral and facet arthropathy along with diffuse disc bulges inducing spinal canal and neural exit pathway compromise. Reading Location: [id number] Discharge Plan Triage Chief Complaint: Fall ED Provider: Kelvin Mai Dx/Rx/DC Orders Clinical Impression: Fall from standing, Head injury, Hematoma of right parietal scalp Instructions: ED Head Injury (Adult) Prescriptions: No Action bupropion HCl 150 MG tablet sustained-release 12 hr 150 mg PO TID Patient Comments: DEPRESSION lorazepam [Ativan] 1 MG tablet 1 mg PO BID PRN (Reason: Anxiety) Patient Comments: ANXIETY azelastine 1 SPRAY aerosol,spray 1 spray NASAL BID Patient Comments: ANTIHISTAMINE fluticasone propionate 1 SPRAY spray,suspension 1 spray NASAL BID Patient Comments: ALLERGIES risperidone 1 MG tablet 1 mg PO QHS Patient Comments: DEPRESSION aspirin 81 MG tablet 81 mg PO DAILY@0800 30 Days 0RF Rx Instructions: heart health metoprolol tartrate 25 MG tablet 50 mg PO DAILY zolpidem 5 MG tablet 2 mg PO QHS PRN PRN (Reason: Sleep) meloxicam 15 mg tablet 15 mg PO DAILY tamsulosin 0.4 mg capsule 0.4 mg PO QHS hydroxychloroquine 200 mg tablet 200 mg PO BID pregabalin 225 mg capsule 225 mg BID fexofenadine 180 mg tablet 180 mg PO DAILY amlodipine 5 mg tablet 5 mg PO DAILY duloxetine 60 mg capsule,delayed release(DR/EC) 60 mg PO BID hydrocodone-acetaminophen 5-325 mg tablet 1 tab PO Q8H PRN PRN (Reason: PAIN) Vitamin C Powder 2 g PO Q6H ferrous sulfate [Iron (ferrous sulfate)] 325 mg (65 mg iron) Tablet 325 mg PO DAILY Primary Care Provider: Alex Lambert Referrals: Alex Lambert MD [Primary Care Provider, Family Practice] Activity Restrictions/Additional Instructions: Remember that concussion is a constellation of symptoms from headache nausea vomiting sensitivity to light or sound you can feel like you are in a fog the symptoms can fluctuate over the course of days it is best to try and rest in a dark room is much as you can you are allowed to go to sleep. Try and decrease your mental stress whether that is from reading or screen time. Follow-up with your primary care doctor otherwise please return if getting worse Print Language: Wolof Disposition Disposition: Home, Self Care
[2025-09-21 04:51] VITALS: BP 179/81; PULSE 81; RESP 14; TEMP 36.6; O2SAT 97
== END 2025-09-21 04:52 | disposition home or self-care (01) ==
PROVIDERS: Emergency Provider Specialist/Technologist Athletic Trainer; PCP Family Medicine; Visit Provider Specialist/Technologist Athletic Trainer
DX: S00.03XA Contusion of scalp, initial encounter (principal); Z87.891 Personal history of nicotine dependence; I10 Essential (primary) hypertension; S09.90XA Unspecified injury of head, initial encounter; K21.9 Gastro-esophageal reflux disease without esophagitis; W19.XXXA Unspecified fall, initial encounter
CPT/HCPCS: 70450; 72125; 99282